=== PATIENT | male | born 1960 | race Caucasian/White ===

== ENCOUNTER 2017-08-06 08:45 | Inpatient (IN) | payer MEDICARE, OTHER ==
[2017-08-06] VITALS (7 sets, daily range): BP systolic 124–149; BP diastolic 65–80
[~2017-08-06] VITALS: Ht 172.7 cm; Wt 72.6 kg
--- NOTE | 2017-08-06 09:23 | Emergency Room Report ---
History of Present Illness General Chief Complaint: Constipation Source: Patient Present Illness HPI Patient presents with 2 problems. His main complaint is that he hasn't moved his bowels for 10 days. He feels dehydrated. His urine has had decreased amounts and has been dark in color. He feels constipated and full. The pain is significant in his abdomen and constant. He feels nauseated but has not been vomiting. His history of HIV and hepatitis C. The hepatitis C was treated and has been cured. The second problem is that he feels short of breath. He stopped smoking on Sunday. He has a history of COPD and asthma. He has an inhaler at home. He denies any chest pain, productive cough. He denies any fevers or chills. No rashes, headache, extremity pain, dysuria, hematuria, depression. Allergies: Coded Allergies: No Known Allergies (Unverified , 08/06/17) Patient History Past Medical History: see triage record Social History: Reports: smoking - Stopped on Sunday; Denies: drug use Social History Narrative lives with girlfriend who is disabled Reviewed Nursing Documentation: PMH: Agreed; PSxH: Agreed Nursing Documentation-PMH Hx Hypertension: Yes Hx Asthma: Yes Review of Systems All Other Systems: negative except mentioned in HPI Physical Exam Vital Signs Date Time Temp Pulse Resp B/P (MAP) Pulse Ox O2 Delivery O2 Flow Rate FiO2 08/06/17 08:53 98.4 108 18 142/79 95 Room Air 98.4 Sp02 EP Interpretation: reviewed, normal General Appearance: well appearing, no apparent distress, GCS 15 Head: normocephalic Eyes: bilateral eye normal inspection, bilateral eye PERRL ENT: dry mucus membranes Neck: supple Respiratory: chest non-tender, lungs clear, normal breath sounds Cardiovascular #1: regular rate, rhythm Cardiovascular #2: 2+ radial (R) Gastrointestinal: normal inspection, normal bowel sounds, soft, no mass, tenderness - diffuse Musculoskeletal: back normal, gait/station normal, normal range of motion Neurologic: alert, oriented x3, grossly normal Psychiatric: mood/affect normal Skin: normal inspection, warm/dry Medical Decision Making Diagnostic Impression: Primary Impression: Hyponatremia Additional Impressions: Abdominal pain Qualified Codes: R10.32 - Left lower quadrant pain Constipation Qualified Codes: K59.00 - Constipation, unspecified HIV (human immunodeficiency virus infection) ER Course Patient presents with constipation and dyspnea. Differential includes dehydration,diabetes, functional constipation, diverticulitis amongst others. In addition he is a smoker and differential for this is acute myocardial infarction, COPD exacerbation, bronchitis, pneumonia. The patient will be evaluated EKG, chest x-ray, abdominal film and labs. The patient retreated with breathing treatments, IV hydration and Toradol. We will avoid narcotics as this might cause further constipation. Also be given a dose of lactulose. Dehydration is one component of presentation. Labs with low sodium, leukocytosis, glucose slightly elevated. UA essentially clear. CXR without infiltrates. EKG no injury. Patient moved large amount of stool in Xray with some relief, however, still with LLQ pain with guarding. CT ordered due to leukocytosis and continued pain. Continued saline infusion. Admit med Dr. Dietrich. Laboratory Tests Test 08/06/17 10:01 08/06/17 12:59 08/06/17 16:00 White Blood Count 13.7 K/UL (4.8-10.8) H Red Blood Count 4.65 M/UL (4.70-6.10) L Hemoglobin 13.8 G/DL (14.2-18.0) L Hematocrit 39.7 % (42.0-52.0) L Mean Corpuscular Volume 85 FL (80-99) Mean Corpuscular Hemoglobin 29.7 PG (27.0-31.0) Mean Corpuscular Hemoglobin Concent 34.9 G/DL (32.0-36.0) Red Cell Distribution Width 10.9 % (11.6-14.8) L Platelet Count 130 K/UL (150-450) L Mean Platelet Volume 8.3 FL (6.5-10.1) Neutrophils (%) (Auto) % (45.0-75.0) Lymphocytes (%) (Auto) % (20.0-45.0) Monocytes (%) (Auto) % (1.0-10.0) Eosinophils (%) (Auto) % (0.0-3.0) Basophils (%) (Auto) % (0.0-2.0) Differential Total Cells Counted 100 Neutrophils % (Manual) 88 % (45-75) H Lymphocytes % (Manual) 6 % (20-45) L Monocytes % (Manual) 6 % (1-10) Eosinophils % (Manual) 0 % (0-3) Basophils % (Manual) 0 % (0-2) Band Neutrophils 0 % (0-8) Platelet Estimate Decreased L Platelet Morphology Normal Red Blood Cell Morphology Normal Prothrombin Time 10.4 SEC (9.30-11.50) Prothrombin Time INR 1.0 (0.9-1.1) PTT 33 SEC (23-33) Sodium Level 120 MMOL/L (136-145) L Potassium Level 3.5 MMOL/L (3.5-5.1) Chloride Level 87 MMOL/L (98-107) L Carbon Dioxide Level 22 MMOL/L (21-32) Anion Gap 11 mmol/L (5-15) Blood Urea Nitrogen 17 mg/dL (7-18) Creatinine 1.0 MG/DL (0.55-1.30) Estimate Glomerular Filtration Rate > 60 mL/min (>60) Glucose Level 195 MG/DL (74-106) H Calcium Level 8.6 MG/DL (8.5-10.1) Total Bilirubin 1.2 MG/DL (0.2-1.0) H Direct Bilirubin 0.3 MG/DL (0.0-0.3) Aspartate Amino Transferase (AST) 23 U/L (15-37) Alanine Aminotransferase (ALT) 25 U/L (12-78) Alkaline Phosphatase 89 U/L (46-116) Total Creatine Kinase 276 U/L (26-308) Troponin I 0.000 ng/mL (0.000-0.056) Pro-B-Type Natriuretic Peptide 36 pg/mL (0-125) Total Protein 7.7 G/DL (6.4-8.2) Albumin 2.7 G/DL (3.4-5.0) L Globulin 5.0 g/dL Albumin/Globulin Ratio 0.5 (1.0-2.7) L Lipase 144 U/L (73-393) Urine Color Pale yellow Urine Appearance Clear Urine pH 6 (4.5-8.0) Urine Specific [place] 1.015 (1.005-1.035) Urine Protein 3+ (NEGATIVE) H Urine Glucose (UA) Negative (NEGATIVE) Urine Ketones Negative (NEGATIVE) Urine Occult Blood 5+ (NEGATIVE) H Urine Nitrite Negative (NEGATIVE) Urine Bilirubin Negative (NEGATIVE) Urine Urobilinogen Normal MG/DL (0.0-1.0) Urine Leukocyte Esterase Negative (NEGATIVE) Urine RBC 2-4 /HPF (0 - 0) H Urine WBC 0 /HPF (0 - 0) Urine Squamous Epithelial Cells Occasional /LPF Urine Amorphous Sediment Few /LPF (NONE) H Urine Bacteria Occasional /HPF (NONE) Urine Osmolality 852 mOsm/kg (429-449) H Urine Random Sodium < 20 mmol/L (20-110) L Urine Opiates Screen Negative (NEGATIVE) Urine Barbiturates Screen Negative (NEGATIVE) Phencyclidine (PCP) Screen Negative (NEGATIVE) Urine Amphetamines Screen Positive (NEGATIVE) H Urine Benzodiazepines Screen Negative (NEGATIVE) Urine Cocaine Screen Positive (NEGATIVE) H Urine Marijuana (THC) Screen Positive (NEGATIVE) H EKG Diagnostic Results Rate: normal Rhythm: NSR ST Segments: no acute changes - LE Rhythm Strip Diag. Results EP Interpretation: yes Rhythm: NSR, no PVC's, no ectopy Chest X-Ray Diagnostic Results Chest X-Ray Diagnostic Results : Chest X-Ray Ordered: Yes # of Views/Limited/Complete: 1 View Interpretation: no consolidation, no effusion, no pneumothorax, other - COPD Impression: Other Electronically Signed by: Murali Ogden MD Other X-Ray Diagnostic Results Other X-Ray Diagnostic Results : X-Ray ordered: abd # of Views/Limited Vs Complete: 1 View Indication: Pain Interpretation: nonspecific bowel gas, no sbo, other - inc stool Impression: Other Electronically Signed by: Murali Ogden MD CT/MRI/US Diagnostic Results CT/MRI/US Diagnostic Results : Imaging Test Ordered: CT abdomen Impression no diverticulitis but diverticulosis Impression: Small left pleural effusion and left basilar atelectasis and possibly some consolidation No definite acute abdominal or pelvic process No CT evidence of significant constipation Colonic diverticulosis. No evidence of diverticulitis Mildly hypoattenuating liver, consistent with fatty change Prominent prostate, with nonspecific hypoattenuation Subcentimeter low-attenuation left renal lesion, too small to characterize, most likely benign simple cysts. No further follow-up necessary Last Vital Signs Date Time Temp Pulse Resp B/P (MAP) Pulse Ox O2 Delivery O2 Flow Rate FiO2 08/06/17 08:57 98.4 78 18 142/79 95 Room Air 98.4 Status: improved Disposition: ADMITTED INPATIENT Condition: Serious Scripts No Active Prescriptions or Reported Meds Murali Ogden M.D. Aug 06, 2017 09:23
[2017-08-06] MEDS ORDERED: Ketorolac 30mg Inj IV ONE (09:30)
[2017-08-06] MEDS ORDERED: Albuterol ud Inhalation HHN ONE (09:30)
[2017-08-06] MEDS ORDERED: Lactulose 20gm/30ml UDC ORAL ONE (09:30)
[2017-08-06] MEDS ORDERED: Ipratropium 0.02% Inh Soln 2.5ml UD HHN ONE (09:30)
[2017-08-06 10:09] LABS: HEMATOCRIT 39.7 % (42.0-52.0); HEMOGLOBIN 13.8 G/DL (14.2-18.0); MEAN CORPUSCULAR VOLUME 85 FL (80-99); PLATELET COUNT 130 K/UL (150-450); RED BLOOD COUNT 4.65 M/UL (4.70-6.10); RED CELL DISTRIBUTION WIDTH 10.9 % (11.6-14.8); WHITE BLOOD COUNT 13.7 K/UL (4.8-10.8)
[2017-08-06 10:31] LABS: ALANINE AMINOTRANSFERASE 25 U/L (12-78); ALBUMIN 2.7 G/DL (3.4-5.0); ALBUMIN/GLOBULIN RATIO 0.5 (1.0-2.7); ALKALINE PHOSPHATASE 89 U/L (46-116); ANION GAP 11 mmol/L (5-15); ASPARTATE AMINO TRANSFERASE 23 U/L (15-37); BILIRUBIN,TOTAL 1.2 MG/DL (0.2-1.0); BLOOD UREA NITROGEN 17 mg/dL (7-18); CALCIUM 8.6 MG/DL (8.5-10.1); CARBON DIOXIDE 22 MMOL/L (21-32); CHLORIDE 87 MMOL/L (98-107); CREATINE KINASE 276 U/L (26-308); POTASSIUM 3.5 MMOL/L (3.5-5.1); SODIUM 120 MMOL/L (136-145)
[2017-08-06 10:32] LABS: BILIRUBIN,DIRECT 0.3 MG/DL (0.0-0.3)
[2017-08-06] MEDS ORDERED: Isovue-300 100ml vial INJ PRN (10:45)
[2017-08-06] MEDS ORDERED: Gastrograffin 30ml ORAL PRN (10:45)
--- NOTE | 2017-08-06 11:08 | Diagnostic Imaging Report ---
Indication: Chest pain Technique: One view of the chest Comparison: none Findings: Lungs and pleural spaces are clear. Heart size is normal Impression: No acute process
--- NOTE | 2017-08-06 11:09 | Diagnostic Imaging Report ---
Indication: Abdominal pain Technique: Supine view of the abdomen Comparison: none Findings: Considerable gas is seen in the upper limits of normal caliber but not frankly dilated small bowel loops, as well as in normal caliber colon. No contreras gaseous distention of large or small bowel. No unusual masses or calcifications. There are degenerative changes of the lumbar spine Impression: No acute process
[2017-08-06 13:34] LABS: APPEARANCE,URINE CLEAR; BILIRUBIN, URINE NEGATIVE (NEGATIVE); COLOR,URINE PALE YELLOW; GLUCOSE, URINE (UA) NEGATIVE (NEGATIVE); KETONES,URINE NEGATIVE (NEGATIVE); LEUKOCYTE ESTERASE ,URINE NEGATIVE (NEGATIVE); NITRITE,URINE NEGATIVE (NEGATIVE); PH,URINE 6 (4.5-8.0); PROTEIN,URINE 3+ (NEGATIVE); UROBILINOGEN,URINE NORMAL MG/DL (0.0-1.0)
[2017-08-06] MEDS ORDERED: Cefepime HCl 1 GM in D5W 55 ML IVPB ONE (14:00)
[2017-08-06] MEDS ORDERED: D5 1/2NS 1,000 ML IV SCH (14:13)
[2017-08-06] MEDS ORDERED: Mylanta II UD 30ml ORAL PRN (14:15)
[2017-08-06] MEDS ORDERED: fentaNYL 100 mcg/2 mL IV ONE (14:15)
[2017-08-06] MEDS ORDERED: Metoclopramide 10mg/2ml Inj IVP PRN (14:15)
[2017-08-06] MEDS ORDERED: Miralax 17gm pkt ORAL PRN (14:15)
[2017-08-06] MEDS ORDERED: Nitroglycerin Subl 0.4mg tab SL PRN (14:15)
[2017-08-06] MEDS ORDERED: Promethazine HCl 12.5 MG in NS 55 ML IV PRN (14:15)
[2017-08-06] MEDS ORDERED: Promethazine HCl 25 MG in NS 55 ML IV PRN (14:15)
--- NOTE | 2017-08-06 15:49 | Diagnostic Imaging Report ---
Clinical Indication: Abdominal pain since Sunday morning, radiating to the back, no bowel movements for 10 days Technique: No oral contrast utilized, per emergency room physician request IV administration nonionic contrast. Venous phase spiral acquisition obtained through the abdomen and pelvis. Multiplanar reconstructions were generated. Total dose length product 731.54 mGycm. CTDIvol(s) 13.88 mGy. Dose reduction achieved using automated exposure control Comparison: none Findings: There is colonic diverticulosis. No evidence of diverticulitis. Descending colon and transverse colon are prominent, gas-filled, but not frankly dilated. Only minimal retained stool is demonstrated. The appendix is not definitely visualized, but no findings to suggest acute appendicitis are evident. No small bowel distention. Contrast is seen throughout the entirety of the small bowel and well into the colon. The distal esophagus, stomach, duodenum are unremarkable. The liver is diffusely mildly hypoattenuating, consistent with fatty change. No focal abnormality. The gallbladder is nondistended. No gallstones are evident. There is a small duodenal diverticulum. No biliary ductal dilatation. The pancreas, spleen, right adrenal are unremarkable. 5 mm fat attenuation nodule is seen within the left adrenal. The left kidney demonstrates a subcentimeter low-attenuation lesion which is too small to characterize. The right kidney is unremarkable. No renal or ureteral calculi, hydronephrosis, or hydroureter. No pelvic mass or adenopathy. Mildly prominent hypoattenuating prostate. Atelectatic changes possible consolidation,, and a small amount of pleural fluid are seen at the left lung base. Minimal dependent atelectasis is seen at the right lung base as well. The bones demonstrate degenerative spondylosis changes. Impression: Small left pleural effusion and left basilar atelectasis and possibly some consolidation No definite acute abdominal or pelvic process No CT evidence of significant constipation Colonic diverticulosis. No evidence of diverticulitis Mildly hypoattenuating liver, consistent with fatty change 5 mm fat attenuation nodule within the left adrenal, consistent with small myelolipoma ... Delete that Prominent prostate, with nonspecific hypoattenuation Subcentimeter low-attenuation left renal lesion, too small to characterize, most likely benign simple cysts. No further follow-up necessary Other findings as noted, including degenerative spondylosis, duodenal diverticulum The CT scanner at [facility] is accredited by the [employer] [place] and the scans are performed using protocols designed to limit radiation exposure to as low as reasonably achievable to attain images of sufficient resolution adequate for diagnostic evaluation.
--- NOTE | 2017-08-06 16:03 | GI Initial Consult Note ---
History of Present Illness General Date patient seen: Aug 06, 2017 Time patient seen: 15:56 Reason for Hospitalization: Constipation Referring physician: ANAT BARNES Reason for Consultation: ABDOMINAL PAIN Present Illness HPI Patient presents with 2 problems. His main complaint is that he hasn't moved his bowels for 10 days. He feels dehydrated. His urine has had decreased amounts and has been dark in color. He feels constipated and full. The pain is significant in his abdomen and constant. He feels nauseated but has not been vomiting. His history of HIV and hepatitis C but the hepatitis C was treated and has been cured. The second problem is that he feels short of breath. She stopped smoking on Sunday. He has a history of COPD and asthma. He has an inhaler at home. He denies any chest pain, productive cough. He denies any fevers or chills. GI consulted for abdominal pain/constipation x 10 days. Pt seen, awake A&Ox4 NAD with no active s/sx of N/V/D. Stated he had two big BM's this morning, but still has abdominal pain. The patient stated he recently quit drinking this year, has history of crystal meth use and recently quit. Had his hepatitis cured 20 years ago. Abdomen is soft and distended, possible ascites. No history of endoscopy / colonoscopy. Home Meds No Active Prescriptions or Reported Meds Med list reviewed/reconciled: Yes Allergies: Coded Allergies: No Known Allergies (Unverified , 08/06/17) Patient History History Provided By: Patient, Medical Record PMH Narrative Past Medical History: see triage record Social History: Reports: smoking - Stopped on Sunday Social History Narrative lives with girlfriend who is disabled Reviewed Nursing Documentation: PMH: Agreed; PSxH: Agreed Nursing Documentation-PMH Hx Hypertension: Yes Hx Asthma: Yes Past Surgical History: none Social History: Reports: smoking, alcohol use, drug use Review of Systems All Other Systems: negative except mentioned in HPI Physical Exam Vital Signs Date Time Temp Pulse Resp B/P (MAP) Pulse Ox O2 Delivery O2 Flow Rate FiO2 08/06/17 08:53 98.4 108 18 142/79 95 Room Air 98.4 08/06/17 09:32 2.0 28 Sp02 EP Interpretation: reviewed, normal Labs Laboratory Tests Test 08/06/17 10:01 6/25/18 12:59 White Blood Count 13.7 K/UL (4.8-10.8) H Red Blood Count 4.65 M/UL (4.70-6.10) L Hemoglobin 13.8 G/DL (14.2-18.0) L Hematocrit 39.7 % (42.0-52.0) L Mean Corpuscular Volume 85 FL (80-99) Mean Corpuscular Hemoglobin 29.7 PG (27.0-31.0) Mean Corpuscular Hemoglobin Concent 34.9 G/DL (32.0-36.0) Red Cell Distribution Width 10.9 % (11.6-14.8) L Platelet Count 130 K/UL (150-450) L Mean Platelet Volume 8.3 FL (6.5-10.1) Neutrophils (%) (Auto) % (45.0-75.0) Lymphocytes (%) (Auto) % (20.0-45.0) Monocytes (%) (Auto) % (1.0-10.0) Eosinophils (%) (Auto) % (0.0-3.0) Basophils (%) (Auto) % (0.0-2.0) Differential Total Cells Counted 100 Neutrophils % (Manual) 88 % (45-75) H Lymphocytes % (Manual) 6 % (20-45) L Monocytes % (Manual) 6 % (1-10) Eosinophils % (Manual) 0 % (0-3) Basophils % (Manual) 0 % (0-2) Band Neutrophils 0 % (0-8) Platelet Estimate Decreased L Platelet Morphology Normal Red Blood Cell Morphology Normal Prothrombin Time 10.4 SEC (9.30-11.50) Prothromb Time International Ratio 1.0 (0.9-1.1) Activated Partial Thromboplast Time 33 SEC (23-33) Sodium Level 120 MMOL/L (136-145) L Potassium Level 3.5 MMOL/L (3.5-5.1) Chloride Level 87 MMOL/L (98-107) L Carbon Dioxide Level 22 MMOL/L (21-32) Anion Gap 11 mmol/L (5-15) Blood Urea Nitrogen 17 mg/dL (7-18) Creatinine 1.0 MG/DL (0.55-1.30) Estimat Glomerular Filtration Rate > 60 mL/min (>60) Glucose Level 195 MG/DL (74-106) H Calcium Level 8.6 MG/DL (8.5-10.1) Total Bilirubin 1.2 MG/DL (0.2-1.0) H Direct Bilirubin 0.3 MG/DL (0.0-0.3) Aspartate Amino Transf (AST/SGOT) 23 U/L (15-37) Alanine Aminotransferase (ALT/SGPT) 25 U/L (12-78) Alkaline Phosphatase 89 U/L (46-116) Total Creatine Kinase 276 U/L (26-308) Troponin I 0.000 ng/mL (0.000-0.056) Pro-B-Type Natriuretic Peptide 36 pg/mL (0-125) Total Protein 7.7 G/DL (6.4-8.2) Albumin 2.7 G/DL (3.4-5.0) L Globulin 5.0 g/dL Albumin/Globulin Ratio 0.5 (1.0-2.7) L Lipase 144 U/L (73-393) Urine Color Pale yellow Urine Appearance Clear Urine pH 6 (4.5-8.0) Urine Specific [place] 1.015 (1.005-1.035) Urine Protein 3+ (NEGATIVE) H Urine Glucose (UA) Negative (NEGATIVE) Urine Ketones Negative (NEGATIVE) Urine Occult Blood 5+ (NEGATIVE) H Urine Nitrite Negative (NEGATIVE) Urine Bilirubin Negative (NEGATIVE) Urine Urobilinogen Normal MG/DL (0.0-1.0) Urine Leukocyte Esterase Negative (NEGATIVE) Urine RBC 2-4 /HPF (0 - 0) H Urine WBC 0 /HPF (0 - 0) Urine Squamous Epithelial Cells Occasional /LPF Urine Amorphous Sediment Few /LPF (NONE) H Urine Bacteria Occasional /HPF (NONE) General Appearance: well appearing, no apparent distress, alert Head: normocephalic EENT: PERRL/EOMI, normal ENT inspection Neck: supple Respiratory: normal breath sounds, no respiratory distress Cardiovascular: normal rate Gastrointestinal: normal inspection, non tender, soft, normal bowel sounds, distended, ascites - possible Rectal: deferred Genitourinary: deferred Musculoskeletal: normal inspection, back normal Neurologic: normal inspection, alert, oriented x3, responsive Psychiatric: normal inspection, judgement/insight normal, memory normal Skin: normal inspection, normal color, no rash, warm/dry, palpation normal, well hydrated Lymphatic: normal inspection, no adenopathy Current Medications Current Medications Medications (Trade) Dose Ordered Sig/Veronica Route PRN Reason Start Time Stop Time Status Last Admin Dose Admin Acetaminophen (Tylenol) 650 mg Q4H PRN ORAL fever 08/06/17 14:15 09/05/17 14:14 Al Hydroxide/Mg Hydroxide (Mylanta II) 30 ml Q6H PRN ORAL dyspepsia 08/06/17 14:15 09/05/17 14:14 Dextrose (Dextrose 50%) 25 ml STAT PRN IV Hypoglycemia 08/06/17 14:15 09/05/17 14:14 Dextrose (Dextrose 50%) 50 ml STAT PRN IV Hypoglycemia 08/06/17 15:15 09/05/17 15:14 Dextrose/Sodium Chloride 1,000 ml @ 75 mls/hr [id number] IV 08/06/17 14:13 09/05/17 14:12 Diatrizoate Meglum/ Diatrizoate Sod (Gastrografin) 30 ml NOW PRN ORAL Radiology Procedure 08/06/17 10:45 08/08/17 10:44 Diphenhydramine HCl (Benadryl) 25 mg Q6H PRN ORAL Itching/Pruritis 08/06/17 14:15 09/05/17 14:14 Heparin Sodium (Porcine) (Heparin 5000 units/ml) 5,000 units EVERY 12 HOURS SUBQ 08/06/17 21:00 09/05/17 20:59 UNV Iopamidol (Isovue-300 100ml) 100 ml NOW PRN INJ Radiology Procedure 08/06/17 10:45 08/08/17 10:44 Lorazepam (Ativan 2mg/ml 1ml) 1 mg EVERY 4 HOURS PRN IV agitation 08/06/17 14:15 08/13/17 14:14 UNV Metoclopramide HCl (Reglan) 10 mg EVERY 6 HOURS PRN IVP servere nauasea 08/06/17 14:15 09/05/17 14:14 UNV Morphine Sulfate (Morphine Sulfate) 2 mg EVERY 4 HOURS PRN IVP severe Pain (Pain Scale 7-10) 08/06/17 14:15 08/13/17 14:14 UNV Nitroglycerin (Ntg) 0.4 mg Q5M X 3 DOSES PRN SL Prn Chest Pain 08/06/17 14:15 09/05/17 14:14 UNV Ondansetron HCl (Zofran) 4 mg Q6H PRN IVP Nausea & Vomiting 08/06/17 14:15 09/05/17 14:14 UNV Pantoprazole (Protonix) 40 mg DAILY IV 08/07/17 09:00 09/06/17 08:59 UNV Polyethylene Glycol (Miralax) 17 gm HSPRN PRN ORAL Constipation 08/06/17 14:15 09/05/17 14:14 UNV Promethazine HCl 12.5 mg/Sodium Chloride 55.5 ml @ 110 mls/hr Q6H PRN IV Refractory N/V 08/06/17 14:15 09/05/17 14:14 UNV Promethazine HCl 25 mg/Sodium Chloride 56 ml @ 110 mls/hr Q6H PRN IV Refractory N/V 08/06/17 14:15 09/05/17 14:14 UNV Sodium Chloride 1,000 ml @ 300 mls/hr Q3H20M IV 08/06/17 09:30 09/05/17 09:29 08/06/17 15:22 Temazepam (Restoril) 15 mg HSPRN PRN ORAL Insomnia 08/06/17 14:15 08/13/17 14:14 UNV GI: Plan Problems: (1) Hepatitis C (2) HIV (human immunodeficiency virus infection) (3) Constipated (4) Abdominal pain (5) Hyponatremia Plan CT reviewed >> - Small left pleural effusion and left basilar atelectasis and possibly some consolidation - No definite acute abdominal or pelvic process - No CT evidence of significant constipation - Colonic diverticulosis. No evidence of diverticulitis - Mildly hypoattenuating liver, consistent with fatty change - prominent prostate, with nonspecific hypoattenuation pending abdominal U/S, okay for regular diet after imaging study ordered Utox anemia work up OB stool r/o GI bleed monitor H&H, prn transfusions bowel regime ppi fu labs, HIV, Hepatitis panel outpatient GI procedures Discussed with Dr. Lee. Thank you for this patient referral, we will follow. The patient was seen and examined at bedside and all new and available data was reviewed in the patients chart. I agree with the above findings, impression and plan. (Patient seen earlier today. Signature stamp does not reflect patient encounter time.). - MD Patti PerkinsHonorhealth [facility] MCKEON Aug 06, 2017 16:03
[2017-08-06] MEDS: Docusate 100mg cap ORAL SCH (17:26)
[2017-08-06] MEDS: Morphine Sulfate 2mg/ml Inj IVP PRN ×2 (17:26→21:43)
[2017-08-06] MEDS: Heparin 5000 units/ml inj SUBQ SCH (20:30)
[2017-08-06] MEDS: Miralax 17gm pkt ORAL SCH (21:43)
[2017-08-07] MEDS: Morphine Sulfate 2mg/ml Inj IVP PRN ×6 (02:00→23:35)
[2017-08-07 04:00] VITALS: BP 120/74
[2017-08-07 07:13] LABS: HEMOGLOBIN 13.9 G/DL (14.2-18.0); MEAN CORPUSCULAR VOLUME 85 FL (80-99); PLATELET COUNT 130 K/UL (150-450); RED BLOOD COUNT 4.57 M/UL (4.70-6.10); WHITE BLOOD COUNT 11.3 K/UL (4.8-10.8)
[2017-08-07 07:26] LABS: ALANINE AMINOTRANSFERASE 29 U/L (12-78); ALBUMIN 2.5 G/DL (3.4-5.0); ALBUMIN/GLOBULIN RATIO 0.6 (1.0-2.7); ALKALINE PHOSPHATASE 84 U/L (46-116); AMYLASE 26 U/L (25-115); ASPARTATE AMINO TRANSFERASE 28 U/L (15-37); BILIRUBIN,TOTAL 0.9 MG/DL (0.2-1.0); BLOOD UREA NITROGEN 12 mg/dL (7-18); CALCIUM 7.8 MG/DL (8.5-10.1); CARBON DIOXIDE 25 MMOL/L (21-32); FERRITIN 1584 NG/ML (8-388)
[2017-08-07 08:00] VITALS: BP 141/57
[2017-08-07 08:01] LABS: % IRON SATURATION 13 % (15-50); IRON 24 ug/dL (50-175); TOTAL IRON BINDING CAPACITY 190 ug/dL (250-450)
[2017-08-07 08:02] LABS: PHOSPHORUS 1.8 MG/DL (2.5-4.9)
[2017-08-07 08:08] LABS: CHLORIDE 90 MMOL/L (98-107); POTASSIUM 4.1 MMOL/L (3.5-5.1); SODIUM 124 MMOL/L (136-145)
[2017-08-07] MEDS: Heparin 5000 units/ml inj SUBQ SCH ×2 (08:30→20:34)
[2017-08-07] MEDS: Docusate 100mg cap ORAL SCH ×2 (08:31→17:56)
[2017-08-07] MEDS ORDERED: Pantoprazole Inj IV SCH (09:00)
--- NOTE | 2017-08-07 13:37 | Consultation ---
History of Present Illness General Date patient seen: Aug 06, 2017 Chief Complaint: Constipation Referring physician: ANAT BARNES Reason for Consultation: COPD Present Illness HPI 56 year old male with hx of HIV presented with complaint of constipation for 10 days. He feels dehydrated. His urine has had decreased amounts and has been dark in color. He feels nauseated but has not been vomiting. His history of HIV and hepatitis C but the hepatitis C was treated and has been cured. The second problem is that he feels short of breath. She stopped smoking on Sunday. He has a history of COPD and asthma. He has an inhaler at home. He denies any chest pain, productive cough. He denies any fevers or chills. Allergies: Coded Allergies: No Known Allergies (Unverified , 08/06/17) Medication History No Active Prescriptions or Reported Meds Patient History Healthcare decision maker Resuscitation status Full Code Advanced Directive on File Past Medical/Surgical History Past Medical/Surgical History: (1) COPD (chronic obstructive pulmonary disease) Review of Systems All Other Systems: negative except mentioned in HPI Physical Exam General Appearance: WD/WN Lines, tubes and drains: peripheral HEENT: normocephalic, atraumatic Neck: non-tender, normal alignment Respiratory/Chest: chest wall non-tender, decreased breath sounds Breasts: no masses Cardiovascular/Chest: normal peripheral pulses Abdomen: normal bowel sounds, non tender Genitourinary/Rectal: normal genital exam, normal rectal exam Extremities: normal range of motion Skin Exam: normal pigmentation Last 24 Hour Vital Signs Date Time Temp Pulse Resp B/P (MAP) Pulse Ox O2 Delivery O2 Flow Rate FiO2 08/07/17 11:44 98.6 08/07/17 11:14 98.6 08/07/17 08:00 98.6 96 20 141/57 98 Room Air 98.6 08/07/17 04:00 97.9 91 20 120/74 97 Room Air 97.9 08/06/17 23:58 98.1 87 20 135/65 99 Room Air 98.1 08/06/17 22:41 97.3 08/06/17 21:42 101.7 08/06/17 19:27 101.7 96 20 134/68 95 Room Air 101.7 08/06/17 16:16 98.2 109 22 125/79 99 Room Air 98.2 08/06/17 15:57 98.4 112 20 124/80 98 Nasal Cannula 2.0 28 98.4 08/06/17 15:27 98.4 112 20 124/80 98 Nasal Cannula 2.0 28 98.4 08/06/17 14:45 98.4 08/06/17 14:15 98.4 08/06/17 13:37 98.4 88 20 132/79 98 Nasal Cannula 2.0 28 98.4 Intake and Output 08/06/17 08/07/17 19:00 07:00 Intake Total 500 ml 1005 ml Output Total 0 ml Balance 500 ml 1005 ml Intake Oral 350 ml 480 ml IV Total 150 ml 525 ml Output Urine Total 0 ml # Voids 5 # Bowel Movements 2 3 Laboratory Tests Test 08/06/17 16:00 08/07/17 00:00 08/07/17 05:10 08/07/17 05:20 Urine Osmolality 852 mOsm/kg (429-449) H Urine Random Sodium < 20 mmol/L (20-110) L Urine Opiates Screen Negative (NEGATIVE) Urine Barbiturates Screen Negative (NEGATIVE) Phencyclidine (PCP) Screen Negative (NEGATIVE) Urine Amphetamines Screen Positive (NEGATIVE) H Urine Benzodiazepines Screen Negative (NEGATIVE) Urine Cocaine Screen Positive (NEGATIVE) H Urine Marijuana (THC) Screen Positive (NEGATIVE) H HIV-1 Antibody Pending HIV-2 Antibody Pending Stool Occult Blood Negative (NEGATIVE) White Blood Count 11.3 K/UL (4.8-10.8) H Red Blood Count 4.57 M/UL (4.70-6.10) L Hemoglobin 13.9 G/DL (14.2-18.0) L Hematocrit 39.0 % (42.0-52.0) L Mean Corpuscular Volume 85 FL (80-99) Mean Corpuscular Hemoglobin 30.4 PG (27.0-31.0) Mean Corpuscular Hemoglobin Concent 35.5 G/DL (32.0-36.0) Red Cell Distribution Width 11.0 % (11.6-14.8) L Platelet Count 130 K/UL (150-450) L Mean Platelet Volume 8.1 FL (6.5-10.1) Neutrophils (%) (Auto) % (45.0-75.0) Lymphocytes (%) (Auto) % (20.0-45.0) Monocytes (%) (Auto) % (1.0-10.0) Eosinophils (%) (Auto) % (0.0-3.0) Basophils (%) (Auto) % (0.0-2.0) Differential Total Cells Counted 100 Neutrophils % (Manual) 84 % (45-75) H Lymphocytes % (Manual) 5 % (20-45) L Monocytes % (Manual) 9 % (1-10) Eosinophils % (Manual) 1 % (0-3) Basophils % (Manual) 0 % (0-2) Band Neutrophils 1 % (0-8) Platelet Estimate Decreased L Platelet Morphology Normal Red Blood Cell Morphology Normal Reticulocyte Count 0.9 % (0.0-2.0) Prothrombin Time 10.5 SEC (9.30-11.50) Prothromb Time International Ratio 1.0 (0.9-1.1) Activated Partial Thromboplast Time 28 SEC (23-33) Sodium Level 124 MMOL/L (136-145) L Potassium Level 4.1 MMOL/L (3.5-5.1) Chloride Level 90 MMOL/L (98-107) L Carbon Dioxide Level 25 MMOL/L (21-32) Blood Urea Nitrogen 12 mg/dL (7-18) Creatinine 1.0 MG/DL (0.55-1.30) Estimat Glomerular Filtration Rate > 60 mL/min (>60) Glucose Level 167 MG/DL (74-106) H Osmolality 268 mOsm/kg (297-317) L Uric Acid 3.9 MG/DL (2.6-7.2) Calcium Level 7.8 MG/DL (8.5-10.1) L Phosphorus Level 1.8 MG/DL (2.5-4.9) L Iron Level 24 ug/dL (50-175) L Total Iron Binding Capacity 190 ug/dL (250-450) L Percent Iron Saturation 13 % (15-50) L Unsaturated Iron Binding 166 ug/dL (112-346) Ferritin 1584 NG/ML (8-388) H Total Bilirubin 0.9 MG/DL (0.2-1.0) Aspartate Amino Transf (AST/SGOT) 28 U/L (15-37) Alanine Aminotransferase (ALT/SGPT) 29 U/L (12-78) Alkaline Phosphatase 84 U/L (46-116) Total Protein 6.5 G/DL (6.4-8.2) Albumin 2.5 G/DL (3.4-5.0) L Globulin 4.0 g/dL Albumin/Globulin Ratio 0.6 (1.0-2.7) L Amylase Level 26 U/L (25-115) Lipase 384 U/L (73-393) Carcinoembryonic Antigen Pending Vitamin B12 Level 488 PG/ML (193-986) Folate 9.0 NG/ML (8.6-58.9) Thyroid Stimulating Hormone (TSH) 1.356 uiU/mL (0.358-3.740) Free Thyroxine 1.05 NG/DL (0.76-1.46) Hepatitis A IgM Antibody Pending Hepatitis B Surface Antigen Pending Hepatitis B Core IgM Antibody Pending Hepatitis C Antibody Pending HIV (1&2) Antibody Rapid Preliminary positive Height (Feet): 5 Height (Inches): 8.00 Weight (Pounds): 160 Medications Current Medications Medications (Trade) Dose Ordered Sig/Veronica Route PRN Reason Start Time Stop Time Status Last Admin Dose Admin Acetaminophen (Tylenol) 650 mg Q4H PRN ORAL fever 08/06/17 14:15 09/05/17 14:14 08/06/17 21:42 Al Hydroxide/Mg Hydroxide (Mylanta II) 30 ml Q6H PRN ORAL dyspepsia 08/06/17 14:15 09/05/17 14:14 Dextrose (Dextrose 50%) 25 ml STAT PRN IV Hypoglycemia 08/06/17 14:15 09/05/17 14:14 Dextrose (Dextrose 50%) 50 ml STAT PRN IV Hypoglycemia 08/06/17 15:15 09/05/17 15:14 Diatrizoate Meglum/ Diatrizoate Sod (Gastrografin) 30 ml NOW PRN ORAL Radiology Procedure 08/06/17 10:45 08/08/17 10:44 Diphenhydramine HCl (Benadryl) 25 mg Q6H PRN ORAL Itching/Pruritis 08/06/17 14:15 09/05/17 14:14 Docusate Sodium (Colace) 100 mg TWICE A DAY ORAL 08/06/17 18:00 09/05/17 17:59 08/07/17 08:31 Heparin Sodium (Porcine) (Heparin 5000 units/ml) 5,000 units EVERY 12 HOURS SUBQ 08/06/17 21:00 09/05/17 20:59 Iopamidol (Isovue-300 100ml) 100 ml NOW PRN INJ Radiology Procedure 08/06/17 10:45 08/08/17 10:44 Lorazepam (Ativan 2mg/ml 1ml) 1 mg Q4H PRN IV agitation 08/06/17 14:15 08/13/17 14:14 Metoclopramide HCl (Reglan) 10 mg Q6H PRN IVP REFRACTORY N/V 08/06/17 14:15 09/05/17 14:14 Morphine Sulfate (Morphine Sulfate) 2 mg Q4H PRN IVP Severe Pain (Pain Scale 7-10) 08/06/17 14:15 08/13/17 14:14 08/07/17 11:14 Nitroglycerin (Ntg) 0.4 mg Q5M X 3 DOSES PRN SL Prn Chest Pain 08/06/17 14:15 09/05/17 14:14 Ondansetron HCl (Zofran) 4 mg Q6H PRN IVP Nausea & Vomiting 08/06/17 14:15 09/05/17 14:14 Pantoprazole (Protonix) 40 mg DAILY IV 08/07/17 09:00 09/06/17 08:59 08/07/17 08:31 Polyethylene Glycol (Miralax) 17 gm BEDTIME ORAL 08/06/17 21:00 09/05/17 20:59 08/06/17 21:43 Sodium Chloride 1,000 ml @ 75 mls/hr [id number] IV 08/06/17 16:30 09/05/17 16:29 08/07/17 06:00 Temazepam (Restoril) 15 mg HSPRN PRN ORAL Insomnia 08/06/17 21:00 08/13/17 20:59 08/06/17 21:42 Assessment/Plan Problem List: (1) Abdominal pain ICD Codes: R10.9 - Unspecified abdominal pain SNOMED: 50803209 Qualifiers: Qualified Codes: R10.32 - Left lower quadrant pain (2) Constipation ICD Codes: K59.00 - Constipation, unspecified SNOMED: 72389257 Qualifiers: Qualified Codes: K59.00 - Constipation, unspecified (3) Hyponatremia ICD Codes: E87.1 - Hypo-osmolality and hyponatremia SNOMED: 57961079 (4) COPD (chronic obstructive pulmonary disease) ICD Codes: J44.9 - Chronic obstructive pulmonary disease, unspecified SNOMED: 70687210 (5) Hepatitis C ICD Codes: B19.20 - Unspecified viral hepatitis C without hepatic coma SNOMED: 26552180 (6) HIV (human immunodeficiency virus infection) ICD Codes: B20 - Human immunodeficiency virus [HIV] disease SNOMED: 36183096 Assessment/Plan laxative respiratory treatment Hyponatremia w/u HIV studies titrate fio2 to sat of 92% ID evaluation pt/ot, pt has a walker. Sally Cox MD Aug 07, 2017 13:37
--- NOTE | 2017-08-07 13:38 | Pulmonology Progress Note ---
Assessment/Plan Problems: (1) Abdominal pain (2) Constipation (3) Hyponatremia (4) COPD (chronic obstructive pulmonary disease) (5) Hepatitis C (6) HIV (human immunodeficiency virus infection) Assessment/Plan laxative, GI evaluation appreciated respiratory treatment Hyponatremia w/u HIV studies titrate fio2 to sat of 92% ID evaluation ending pt/ot, pt has a walker. Subjective ROS Limited/Unobtainable: No Interval Events: still c/o pain Allergies: Coded Allergies: No Known Allergies (Unverified , 08/06/17) Objective Last 24 Hour Vital Signs Date Time Temp Pulse Resp B/P (MAP) Pulse Ox O2 Delivery O2 Flow Rate FiO2 08/07/17 11:44 98.6 08/07/17 11:14 98.6 08/07/17 08:00 98.6 96 20 141/57 98 Room Air 98.6 08/07/17 04:00 97.9 91 20 120/74 97 Room Air 97.9 08/06/17 23:58 98.1 87 20 135/65 99 Room Air 98.1 08/06/17 22:41 97.3 08/06/17 21:42 101.7 08/06/17 19:27 101.7 96 20 134/68 95 Room Air 101.7 08/06/17 16:16 98.2 109 22 125/79 99 Room Air 98.2 08/06/17 15:57 98.4 112 20 124/80 98 Nasal Cannula 2.0 28 98.4 08/06/17 15:27 98.4 112 20 124/80 98 Nasal Cannula 2.0 28 98.4 08/06/17 14:45 98.4 08/06/17 14:15 98.4 Intake and Output 08/06/17 08/07/17 19:00 07:00 Intake Total 500 ml 1005 ml Output Total 0 ml Balance 500 ml 1005 ml Intake Oral 350 ml 480 ml IV Total 150 ml 525 ml Output Urine Total 0 ml # Voids 5 # Bowel Movements 2 3 General Appearance: WD/WN HEENT: atraumatic Respiratory/Chest: chest wall non-tender, lungs clear Cardiovascular: normal peripheral pulses, normal rate Abdomen: normal bowel sounds, soft, non tender Genitourinary: normal external genitalia Skin: no rash Laboratory Tests 08/06/17 16:00: Urine Osmolality 852H, Urine Random Sodium < 20L, Urine Opiates Screen Negative , Urine Barbiturates Screen Negative, Phencyclidine (PCP) Screen Negative, Urine Amphetamines Screen PositiveH, Urine Benzodiazepines Screen Negative, Urine Cocaine Screen PositiveH, Urine Marijuana (THC) Screen PositiveH 08/07/17 00:00: HIV-1 Antibody [Pending], HIV-2 Antibody [Pending] 08/07/17 05:10: Stool Occult Blood Negative 08/07/17 05:20: White Blood Count 11.3H, Red Blood Count 4.57L, Hemoglobin 13.9L, Hematocrit 39.0L, Mean Corpuscular Volume 85, Mean Corpuscular Hemoglobin 30.4, Mean Corpuscular Hemoglobin Concent 35.5, Red Cell Distribution Width 11.0L, Platelet Count 130L, Mean Platelet Volume 8.1, Neutrophils (%) (Auto) , Lymphocytes (%) (Auto) , Monocytes (%) (Auto) , Eosinophils (%) (Auto) , Basophils (%) (Auto) , Differential Total Cells Counted 100, Neutrophils % ( Manual) 84H, Lymphocytes % (Manual) 5L, Monocytes % (Manual) 9, Eosinophils % ( Manual) 1, Basophils % (Manual) 0, Band Neutrophils 1, Platelet Estimate DecreasedL, Platelet Morphology Normal, Red Blood Cell Morphology Normal, Reticulocyte Count 0.9, Prothrombin Time 10.5, Prothromb Time International Ratio 1.0, Activated Partial Thromboplast Time 28, Sodium Level 124L, Potassium Level 4.1, Chloride Level 90L, Carbon Dioxide Level 25, Blood Urea Nitrogen 12, Creatinine 1.0, Estimat Glomerular Filtration Rate > 60, Glucose Level 167H, Osmolality 268L, Uric Acid 3.9, Calcium Level 7.8L, Phosphorus Level 1.8L, Iron Level 24L, Total Iron Binding Capacity 190L, Percent Iron Saturation 13L, Unsaturated Iron Binding 166, Ferritin 1584H, Total Bilirubin 0.9, Aspartate Amino Transf (AST/SGOT) 28, Alanine Aminotransferase (ALT/SGPT) 29, Alkaline Phosphatase 84, Total Protein 6.5, Albumin 2.5L, Globulin 4.0, Albumin/Globulin Ratio 0.6L, Amylase Level 26, Lipase 384, Carcinoembryonic Antigen [Pending], Vitamin B12 Level 488, Folate 9.0, Thyroid Stimulating Hormone (TSH) 1.356, Free Thyroxine 1.05, Hepatitis A IgM Antibody [Pending], Hepatitis B Surface Antigen [Pending], Hepatitis B Core IgM Antibody [Pending], Hepatitis C Antibody [Pending], HIV (1&2) Antibody Rapid Preliminary positiveH Current Medications Medications (Trade) Dose Ordered Sig/Veronica Route PRN Reason Start Time Stop Time Status Last Admin Dose Admin Acetaminophen (Tylenol) 650 mg Q4H PRN ORAL fever 08/06/17 14:15 09/05/17 14:14 08/06/17 21:42 Al Hydroxide/Mg Hydroxide (Mylanta II) 30 ml Q6H PRN ORAL dyspepsia 08/06/17 14:15 09/05/17 14:14 Dextrose (Dextrose 50%) 25 ml STAT PRN IV Hypoglycemia 08/06/17 14:15 09/05/17 14:14 Dextrose (Dextrose 50%) 50 ml STAT PRN IV Hypoglycemia 08/06/17 15:15 09/05/17 15:14 Diatrizoate Meglum/ Diatrizoate Sod (Gastrografin) 30 ml NOW PRN ORAL Radiology Procedure 08/06/17 10:45 08/08/17 10:44 Diphenhydramine HCl (Benadryl) 25 mg Q6H PRN ORAL Itching/Pruritis 08/06/17 14:15 09/05/17 14:14 Docusate Sodium (Colace) 100 mg TWICE A DAY ORAL 08/06/17 18:00 09/05/17 17:59 08/07/17 08:31 Heparin Sodium (Porcine) (Heparin 5000 units/ml) 5,000 units EVERY 12 HOURS SUBQ 08/06/17 21:00 09/05/17 20:59 Iopamidol (Isovue-300 100ml) 100 ml NOW PRN INJ Radiology Procedure 08/06/17 10:45 08/08/17 10:44 Lorazepam (Ativan 2mg/ml 1ml) 1 mg Q4H PRN IV agitation 08/06/17 14:15 08/13/17 14:14 Metoclopramide HCl (Reglan) 10 mg Q6H PRN IVP REFRACTORY N/V 08/06/17 14:15 09/05/17 14:14 Morphine Sulfate (Morphine Sulfate) 2 mg Q4H PRN IVP Severe Pain (Pain Scale 7-10) 08/06/17 14:15 08/13/17 14:14 08/07/17 11:14 Nitroglycerin (Ntg) 0.4 mg Q5M X 3 DOSES PRN SL Prn Chest Pain 08/06/17 14:15 09/05/17 14:14 Ondansetron HCl (Zofran) 4 mg Q6H PRN IVP Nausea & Vomiting 08/06/17 14:15 09/05/17 14:14 Pantoprazole (Protonix) 40 mg DAILY IV 08/07/17 09:00 09/06/17 08:59 08/07/17 08:31 Polyethylene Glycol (Miralax) 17 gm BEDTIME ORAL 08/06/17 21:00 09/05/17 20:59 08/06/17 21:43 Sodium Chloride 1,000 ml @ 75 mls/hr [id number] IV 08/06/17 16:30 09/05/17 16:29 08/07/17 06:00 Temazepam (Restoril) 15 mg HSPRN PRN ORAL Insomnia 08/06/17 21:00 08/13/17 20:59 08/06/17 21:42 Sally Cox MD Aug 07, 2017 13:38
--- NOTE | 2017-08-07 13:54 | Consultation ---
Consult Note Consult Note asked to eval for hyponatremia Patient presents with 2 problems. His main complaint is that he hasn't moved his bowels for 10 days. He feels dehydrated. His urine has had decreased amounts and has been dark in color. He feels constipated and full. The pain is significant in his abdomen and constant. He feels nauseated but has not been vomiting. His history of HIV and hepatitis C but the hepatitis C was treated and has been cured. The second problem is that he feels short of breath. She stopped smoking on Sunday. He has a history of COPD and asthma. He has an inhaler at home. He denies any chest pain, productive cough. He denies any fevers or chills. interviewed, examined data reviewed Assessment/Plan Sever HypoNatremia HypoAlbuminemia HIV + Chronic Pain MultiDrug abuse: coccaine MJ Amphetamines Anemia COPD Hep C 3% Saline PRN Lasix monitor lytes Rashad Mag Phos as needed JAMI KRISHNAMURTHY Aug 07, 2017 13:54
--- NOTE | 2017-08-07 13:57 | GI Progress Note ---
Assessment/Plan Problems: (1) Polysubstance (excluding opioids) dependence ICD Codes: F19.20 - Other psychoactive substance dependence, uncomplicated SNOMED: 90778582 (2) Hepatitis C ICD Codes: B19.20 - Unspecified viral hepatitis C without hepatic coma SNOMED: 65233341 (3) Constipated ICD Codes: K59.00 - Constipation, unspecified SNOMED: 47766537 (4) Hyponatremia ICD Codes: E87.1 - Hypo-osmolality and hyponatremia SNOMED: 90936982 (5) HIV (human immunodeficiency virus infection) ICD Codes: B20 - Human immunodeficiency virus [HIV] disease SNOMED: 92926792 (6) Abdominal pain ICD Codes: R10.9 - Unspecified abdominal pain SNOMED: 80207355 Qualifiers: Qualified Codes: R10.32 - Left lower quadrant pain Status: stable Status Narrative Discussed with Dr. Lee. Assessment/Plan CT reviewed >> - Small left pleural effusion and left basilar atelectasis and possibly some consolidation - No definite acute abdominal or pelvic process - No CT evidence of significant constipation - Colonic diverticulosis. No evidence of diverticulitis - Mildly hypoattenuating liver, consistent with fatty change - prominent prostate, with nonspecific hypoattenuation HIV positive hep panel pending Utox positive for cocaine, MJ, amphetamines OB negative regular diet monitor H&H, prn transfusions bowel regime ppi fu labs, hepatitis panel outpatient GI procedures Subjective Gastrointestinal/Abdominal: Reports: no symptoms Objective Last 24 Hour Vital Signs Date Time Temp Pulse Resp B/P (MAP) Pulse Ox O2 Delivery O2 Flow Rate FiO2 08/07/17 11:44 98.6 08/07/17 11:14 98.6 08/07/17 08:00 98.6 96 20 141/57 98 Room Air 98.6 08/07/17 04:00 97.9 91 20 120/74 97 Room Air 97.9 08/06/17 23:58 98.1 87 20 135/65 99 Room Air 98.1 08/06/17 22:41 97.3 08/06/17 21:42 101.7 08/06/17 19:27 101.7 96 20 134/68 95 Room Air 101.7 08/06/17 16:16 98.2 109 22 125/79 99 Room Air 98.2 08/06/17 15:57 98.4 112 20 124/80 98 Nasal Cannula 2.0 28 98.4 08/06/17 15:27 98.4 112 20 124/80 98 Nasal Cannula 2.0 28 98.4 08/06/17 14:45 98.4 08/06/17 14:15 98.4 Intake and Output 08/06/17 08/07/17 19:00 07:00 Intake Total 500 ml 1005 ml Output Total 0 ml Balance 500 ml 1005 ml Intake Oral 350 ml 480 ml IV Total 150 ml 525 ml Output Urine Total 0 ml # Voids 5 # Bowel Movements 2 3 Laboratory Tests Test 08/06/17 16:00 08/07/17 00:00 08/07/17 05:10 08/07/17 05:20 Urine Osmolality 852 mOsm/kg (429-449) H Urine Random Sodium < 20 mmol/L (20-110) L Urine Opiates Screen Negative (NEGATIVE) Urine Barbiturates Screen Negative (NEGATIVE) Phencyclidine (PCP) Screen Negative (NEGATIVE) Urine Amphetamines Screen Positive (NEGATIVE) H Urine Benzodiazepines Screen Negative (NEGATIVE) Urine Cocaine Screen Positive (NEGATIVE) H Urine Marijuana (THC) Screen Positive (NEGATIVE) H HIV-1 Antibody Pending HIV-2 Antibody Pending Stool Occult Blood Negative (NEGATIVE) White Blood Count 11.3 K/UL (4.8-10.8) H Red Blood Count 4.57 M/UL (4.70-6.10) L Hemoglobin 13.9 G/DL (14.2-18.0) L Hematocrit 39.0 % (42.0-52.0) L Mean Corpuscular Volume 85 FL (80-99) Mean Corpuscular Hemoglobin 30.4 PG (27.0-31.0) Mean Corpuscular Hemoglobin Concent 35.5 G/DL (32.0-36.0) Red Cell Distribution Width 11.0 % (11.6-14.8) L Platelet Count 130 K/UL (150-450) L Mean Platelet Volume 8.1 FL (6.5-10.1) Neutrophils (%) (Auto) % (45.0-75.0) Lymphocytes (%) (Auto) % (20.0-45.0) Monocytes (%) (Auto) % (1.0-10.0) Eosinophils (%) (Auto) % (0.0-3.0) Basophils (%) (Auto) % (0.0-2.0) Differential Total Cells Counted 100 Neutrophils % (Manual) 84 % (45-75) H Lymphocytes % (Manual) 5 % (20-45) L Monocytes % (Manual) 9 % (1-10) Eosinophils % (Manual) 1 % (0-3) Basophils % (Manual) 0 % (0-2) Band Neutrophils 1 % (0-8) Platelet Estimate Decreased L Platelet Morphology Normal Red Blood Cell Morphology Normal Reticulocyte Count 0.9 % (0.0-2.0) Prothrombin Time 10.5 SEC (9.30-11.50) Prothromb Time International Ratio 1.0 (0.9-1.1) Activated Partial Thromboplast Time 28 SEC (23-33) Sodium Level 124 MMOL/L (136-145) L Potassium Level 4.1 MMOL/L (3.5-5.1) Chloride Level 90 MMOL/L (98-107) L Carbon Dioxide Level 25 MMOL/L (21-32) Blood Urea Nitrogen 12 mg/dL (7-18) Creatinine 1.0 MG/DL (0.55-1.30) Estimat Glomerular Filtration Rate > 60 mL/min (>60) Glucose Level 167 MG/DL (74-106) H Osmolality 268 mOsm/kg (297-317) L Uric Acid 3.9 MG/DL (2.6-7.2) Calcium Level 7.8 MG/DL (8.5-10.1) L Phosphorus Level 1.8 MG/DL (2.5-4.9) L Iron Level 24 ug/dL (50-175) L Total Iron Binding Capacity 190 ug/dL (250-450) L Percent Iron Saturation 13 % (15-50) L Unsaturated Iron Binding 166 ug/dL (112-346) Ferritin 1584 NG/ML (8-388) H Total Bilirubin 0.9 MG/DL (0.2-1.0) Aspartate Amino Transf (AST/SGOT) 28 U/L (15-37) Alanine Aminotransferase (ALT/SGPT) 29 U/L (12-78) Alkaline Phosphatase 84 U/L (46-116) Total Protein 6.5 G/DL (6.4-8.2) Albumin 2.5 G/DL (3.4-5.0) L Globulin 4.0 g/dL Albumin/Globulin Ratio 0.6 (1.0-2.7) L Amylase Level 26 U/L (25-115) Lipase 384 U/L (73-393) Carcinoembryonic Antigen Pending Vitamin B12 Level 488 PG/ML (193-986) Folate 9.0 NG/ML (8.6-58.9) Thyroid Stimulating Hormone (TSH) 1.356 uiU/mL (0.358-3.740) Free Thyroxine 1.05 NG/DL (0.76-1.46) Hepatitis A IgM Antibody Pending Hepatitis B Surface Antigen Pending Hepatitis B Core IgM Antibody Pending Hepatitis C Antibody Pending HIV (1&2) Antibody Rapid Preliminary positive Height (Feet): 5 Height (Inches): 8.00 Weight (Pounds): 160 General Appearance: WD/WN, no apparent distress, alert Cardiovascular: normal rate Respiratory/Chest: normal breath sounds, no respiratory distress Abdominal Exam: normal bowel sounds, non tender, soft Extremities: normal range of motion, non-tender Rupinder Armstrong NP Aug 07, 2017 13:57
--- NOTE | 2017-08-07 14:08 | Consultation ---
History of Present Illness General Date patient seen: Aug 07, 2017 Chief Complaint: Constipation Referring physician: ANAT BARNES Reason for Consultation: COPD Present Illness HPI 56 y/o M with hx of HIV and Hep C s/p tx (20 years ago) with sustained virologic response, COPD/asthma, tobacco abuse (stopped smoking ~4 days ago) presents to ED on on 08/06 with 10 days of constipation, decreased urine output and urine of dark color. +nausea,SOB Denies vomiting, CP, cough, f/c Febrile up to 101.7 WBC up to 13, now down to 11 Per patient, HIV for 25 years- he is non-progresser. Has had high Cd4 and undetectable VL and never on HIV treatment Allergies: Coded Allergies: No Known Allergies (Unverified , 08/06/17) Medication History No Active Prescriptions or Reported Meds Patient History Healthcare decision maker Resuscitation status Full Code Advanced Directive on File Patient History Narrative Pmhx: as above Shx: The patient stated he recently quit drinking this year, has history of crystal meth use and recently quit. smoking - Stopped on Sunday Fhx: non contributory Review of Systems All Other Systems: negative except mentioned in HPI Physical Exam Physical Exam Narrative General Appearance: WD/WN HEENT: atraumatic Respiratory/Chest: chest wall non-tender, lungs clear Cardiovascular: normal peripheral pulses, normal rate Abdomen: normal bowel sounds, soft, non tender Skin: no rash Last 24 Hour Vital Signs Date Time Temp Pulse Resp B/P (MAP) Pulse Ox O2 Delivery O2 Flow Rate FiO2 08/07/17 11:44 98.6 08/07/17 11:14 98.6 08/07/17 08:00 98.6 96 20 141/57 98 Room Air 98.6 08/07/17 04:00 97.9 91 20 120/74 97 Room Air 97.9 08/06/17 23:58 98.1 87 20 135/65 99 Room Air 98.1 08/06/17 22:41 97.3 08/06/17 21:42 101.7 08/06/17 19:27 101.7 96 20 134/68 95 Room Air 101.7 08/06/17 16:16 98.2 109 22 125/79 99 Room Air 98.2 08/06/17 15:57 98.4 112 20 124/80 98 Nasal Cannula 2.0 28 98.4 08/06/17 15:27 98.4 112 20 124/80 98 Nasal Cannula 2.0 28 98.4 08/06/17 14:45 98.4 08/06/17 14:15 98.4 Intake and Output 08/06/17 08/07/17 19:00 07:00 Intake Total 500 ml 1005 ml Output Total 0 ml Balance 500 ml 1005 ml Intake Oral 350 ml 480 ml IV Total 150 ml 525 ml Output Urine Total 0 ml # Voids 5 # Bowel Movements 2 3 Laboratory Tests Test 08/06/17 16:00 08/07/17 00:00 08/07/17 05:10 08/07/17 05:20 Urine Osmolality 852 mOsm/kg (429-449) H Urine Random Sodium < 20 mmol/L (20-110) L Urine Opiates Screen Negative (NEGATIVE) Urine Barbiturates Screen Negative (NEGATIVE) Phencyclidine (PCP) Screen Negative (NEGATIVE) Urine Amphetamines Screen Positive (NEGATIVE) H Urine Benzodiazepines Screen Negative (NEGATIVE) Urine Cocaine Screen Positive (NEGATIVE) H Urine Marijuana (THC) Screen Positive (NEGATIVE) H HIV-1 Antibody Pending HIV-2 Antibody Pending Stool Occult Blood Negative (NEGATIVE) White Blood Count 11.3 K/UL (4.8-10.8) H Red Blood Count 4.57 M/UL (4.70-6.10) L Hemoglobin 13.9 G/DL (14.2-18.0) L Hematocrit 39.0 % (42.0-52.0) L Mean Corpuscular Volume 85 FL (80-99) Mean Corpuscular Hemoglobin 30.4 PG (27.0-31.0) Mean Corpuscular Hemoglobin Concent 35.5 G/DL (32.0-36.0) Red Cell Distribution Width 11.0 % (11.6-14.8) L Platelet Count 130 K/UL (150-450) L Mean Platelet Volume 8.1 FL (6.5-10.1) Neutrophils (%) (Auto) % (45.0-75.0) Lymphocytes (%) (Auto) % (20.0-45.0) Monocytes (%) (Auto) % (1.0-10.0) Eosinophils (%) (Auto) % (0.0-3.0) Basophils (%) (Auto) % (0.0-2.0) Differential Total Cells Counted 100 Neutrophils % (Manual) 84 % (45-75) H Lymphocytes % (Manual) 5 % (20-45) L Monocytes % (Manual) 9 % (1-10) Eosinophils % (Manual) 1 % (0-3) Basophils % (Manual) 0 % (0-2) Band Neutrophils 1 % (0-8) Platelet Estimate Decreased L Platelet Morphology Normal Red Blood Cell Morphology Normal Reticulocyte Count 0.9 % (0.0-2.0) Prothrombin Time 10.5 SEC (9.30-11.50) Prothromb Time International Ratio 1.0 (0.9-1.1) Activated Partial Thromboplast Time 28 SEC (23-33) Sodium Level 124 MMOL/L (136-145) L Potassium Level 4.1 MMOL/L (3.5-5.1) Chloride Level 90 MMOL/L (98-107) L Carbon Dioxide Level 25 MMOL/L (21-32) Blood Urea Nitrogen 12 mg/dL (7-18) Creatinine 1.0 MG/DL (0.55-1.30) Estimat Glomerular Filtration Rate > 60 mL/min (>60) Glucose Level 167 MG/DL (74-106) H Osmolality 268 mOsm/kg (297-317) L Uric Acid 3.9 MG/DL (2.6-7.2) Calcium Level 7.8 MG/DL (8.5-10.1) L Phosphorus Level 1.8 MG/DL (2.5-4.9) L Iron Level 24 ug/dL (50-175) L Total Iron Binding Capacity 190 ug/dL (250-450) L Percent Iron Saturation 13 % (15-50) L Unsaturated Iron Binding 166 ug/dL (112-346) Ferritin 1584 NG/ML (8-388) H Total Bilirubin 0.9 MG/DL (0.2-1.0) Aspartate Amino Transf (AST/SGOT) 28 U/L (15-37) Alanine Aminotransferase (ALT/SGPT) 29 U/L (12-78) Alkaline Phosphatase 84 U/L (46-116) Total Protein 6.5 G/DL (6.4-8.2) Albumin 2.5 G/DL (3.4-5.0) L Globulin 4.0 g/dL Albumin/Globulin Ratio 0.6 (1.0-2.7) L Amylase Level 26 U/L (25-115) Lipase 384 U/L (73-393) Carcinoembryonic Antigen Pending Vitamin B12 Level 488 PG/ML (193-986) Folate 9.0 NG/ML (8.6-58.9) Thyroid Stimulating Hormone (TSH) 1.356 uiU/mL (0.358-3.740) Free Thyroxine 1.05 NG/DL (0.76-1.46) Hepatitis A IgM Antibody Pending Hepatitis B Surface Antigen Pending Hepatitis B Core IgM Antibody Pending Hepatitis C Antibody Pending HIV (1&2) Antibody Rapid Preliminary positive Height (Feet): 5 Height (Inches): 8.00 Weight (Pounds): 160 Medications Current Medications Medications (Trade) Dose Ordered Sig/Veronica Route PRN Reason Start Time Stop Time Status Last Admin Dose Admin Acetaminophen (Tylenol) 650 mg Q4H PRN ORAL fever 08/06/17 14:15 09/05/17 14:14 08/06/17 21:42 Al Hydroxide/Mg Hydroxide (Mylanta II) 30 ml Q6H PRN ORAL dyspepsia 08/06/17 14:15 09/05/17 14:14 Dextrose (Dextrose 50%) 25 ml STAT PRN IV Hypoglycemia 08/06/17 14:15 09/05/17 14:14 Dextrose (Dextrose 50%) 50 ml STAT PRN IV Hypoglycemia 08/06/17 15:15 09/05/17 15:14 Diatrizoate Meglum/ Diatrizoate Sod (Gastrografin) 30 ml NOW PRN ORAL Radiology Procedure 08/06/17 10:45 08/08/17 10:44 Diphenhydramine HCl (Benadryl) 25 mg Q6H PRN ORAL Itching/Pruritis 08/06/17 14:15 09/05/17 14:14 Docusate Sodium (Colace) 100 mg TWICE A DAY ORAL 08/06/17 18:00 09/05/17 17:59 08/07/17 08:31 Heparin Sodium (Porcine) (Heparin 5000 units/ml) 5,000 units EVERY 12 HOURS SUBQ 08/06/17 21:00 09/05/17 20:59 Iopamidol (Isovue-300 100ml) 100 ml NOW PRN INJ Radiology Procedure 08/06/17 10:45 08/08/17 10:44 Lorazepam (Ativan 2mg/ml 1ml) 1 mg Q4H PRN IV agitation 08/06/17 14:15 08/13/17 14:14 Metoclopramide HCl (Reglan) 10 mg Q6H PRN IVP REFRACTORY N/V 08/06/17 14:15 09/05/17 14:14 Morphine Sulfate (Morphine Sulfate) 2 mg Q4H PRN IVP Severe Pain (Pain Scale 7-10) 08/06/17 14:15 08/13/17 14:14 08/07/17 11:14 Nitroglycerin (Ntg) 0.4 mg Q5M X 3 DOSES PRN SL Prn Chest Pain 08/06/17 14:15 09/05/17 14:14 Ondansetron HCl (Zofran) 4 mg Q6H PRN IVP Nausea & Vomiting 08/06/17 14:15 09/05/17 14:14 Pantoprazole (Protonix) 40 mg DAILY IV 08/07/17 09:00 09/06/17 08:59 08/07/17 08:31 Polyethylene Glycol (Miralax) 17 gm BEDTIME ORAL 08/06/17 21:00 09/05/17 20:59 08/06/17 21:43 Sodium Chloride 500 ml @ 30 mls/hr ONCE ONCE IVPB 08/07/17 14:00 08/08/17 06:39 UNV Sodium Phosphate 30 mm/Sodium Chloride 285 ml @ 47.5 mls/hr ONCE ONCE IVPB 08/07/17 14:00 08/07/17 19:59 UNV Temazepam (Restoril) 15 mg HSPRN PRN ORAL Insomnia 08/06/17 21:00 08/13/17 20:59 08/06/17 21:42 Assessment/Plan Assessment/Plan Abx: Cefepime x1 08/06 Levaquin x1 08/06 Assessment: Constipation -CT abd/p w/: Small left pleural effusion and left basilar atelectasis and possibly some consolidation. No definite acute abdominal or pelvic process. No CT evidence of significant constipation. Colonic diverticulosis. No evidence of diverticulitis. Mildly hypoattenuating liver, consistent with fatty change. 5 mm fat attenuation nodule is seen within the left adrenal. Prominent prostate, with nonspecific hypoattenuation. Subcentimeter low-attenuation left renal lesion, too small to characterize, most likely benign simple cysts. 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 Will continue to follow along with you. Discussed with Steph Giordano M.D. Aug 07, 2017 14:08
[2017-08-07] MEDS ORDERED: NaCl 3% 500ml 500 ML IV ONE (15:30)
[2017-08-07] MEDS ORDERED: Sodium Phosphate 30 MM in NS 275 ML IVPB ONE (15:30)
[2017-08-07] MEDS ORDERED: Sodium Chloride 3% 4ml Nebul Soln INH ONE (16:00)
[2017-08-07] MEDS: cefTRIAXone 1 GM in D5W 110 ML IVPB SCH (17:56)
[2017-08-07 19:12] VITALS: BP 136/71
[2017-08-07] MEDS: Miralax 17gm pkt ORAL SCH (20:34)
--- NOTE | 2017-08-07 20:45 | History and Physical Report ---
DATE OF ADMISSION: 08/06/2017 TIME SEEN: At 1 p.m. SIGNAL TIMER: 1. Sally Cox M.D. 2. Russell Ewing M.D. 3. Matthew Lee M.D. 4. Mushtaq Almonte M.D. CHIEF COMPLAINT: Abdominal pain, constipation, and hyponatremia. HISTORY OF PRESENT ILLNESS: This is a 56-year-old male, who lives at home, presented with the above-mentioned diagnosis, came in to [facility] last night, constipation for he said 10 days and the patient was admitted to medical floor for further treatment. He has had bowel movement this morning. Currently calm in bed, feeling little bit better. PAST MEDICAL HISTORY: HVI, hep C. PAST SURGICAL HISTORY: Right leg. MEDICATIONS: Include Protonix, heparin, Restoril, MiraLAX, Colace, Tylenol, morphine, Zofran, Benadryl, Mylanta. ALLERGIES: Denies. SOCIAL HISTORY: Positive smoking. No alcohol. No intravenous drug abuse. FAMILY HISTORY: Noncontributory. PHYSICAL EXAMINATION: GENERAL: Calm in bed, oriented x3, in no acute distress. VITAL SIGNS: Temperature is 98, pulse 98, respirations 20, and blood pressure 141/57. CARDIOVASCULAR: No murmur. LUNGS: Distant and clear. ABDOMEN: Bowel sounds positive. Nontender. Nondistended. EXTREMITIES: No cyanosis, clubbing, or edema. NEUROLOGIC: The patient moves all extremities, slightly weak. LABORATORY AND DIAGNOSTIC DATA: White count 11.3, hemoglobin and hematocrit 13 over 39, platelets 130. BMP shows glucose 167, sodium 124, chloride 90 albumin 2.5. INR is 1.0, PTT 28. Urine tox positive for amphetamine, cocaine, marijuana, . Urinalysis 5+ occult blood, 3+ protein. ASSESSMENT: 1. Hyponatremia. 2. Abdominal pain. 3. Drug abuse. 4. Constipation. 5. Human immunodeficiency virus. PLAN: 1. Continue previous medications. 2. Pain control. 3. Gastrointestinal followup. 4. Laxatives as needed. 5. IV fluids. 6. OT, PT, and dietary evaluation. 7. CBC and BMP in morning. 8. We will continue to follow the patient. Chemo Dietrich D.O. DR: Maribell JOB#: [id number] CC:
[2017-08-07] MEDS ORDERED: Iron Sucrose 100 MG in NS 55 ML IV SCH (21:00)
[2017-08-07 23:55] VITALS: BP 134/71
[2017-08-08 03:45] VITALS: BP 126/60
[2017-08-08] MEDS: Morphine Sulfate 2mg/ml Inj IVP PRN ×3 (04:03→12:02)
[2017-08-08 07:15] LABS: ALANINE AMINOTRANSFERASE 24 U/L (12-78); ALBUMIN 2.1 G/DL (3.4-5.0); ALBUMIN/GLOBULIN RATIO 0.5 (1.0-2.7); ALKALINE PHOSPHATASE 117 U/L (46-116); ANION GAP 11 mmol/L (5-15); ASPARTATE AMINO TRANSFERASE 21 U/L (15-37); BILIRUBIN,TOTAL 0.8 MG/DL (0.2-1.0); BLOOD UREA NITROGEN 7 mg/dL (7-18); CALCIUM 8.1 MG/DL (8.5-10.1); CARBON DIOXIDE 24 MMOL/L (21-32); CHLORIDE 92 MMOL/L (98-107); CHOLESTEROL 80 MG/DL (< 200); CREATININE 0.8 MG/DL (0.55-1.30); GAMMA GLUTAMYL TRANSPEPTIDASE 35 U/L (5-85); HDL CHOLESTEROL 17 MG/DL (40-60); PHOSPHORUS 1.8 MG/DL (2.5-4.9); SODIUM 126 MMOL/L (136-145); TRIGLYCERIDES 70 MG/DL (30-150)
[2017-08-08 07:24] LABS: HEMATOCRIT 34.9 % (42.0-52.0); HEMOGLOBIN 12.6 G/DL (14.2-18.0); MEAN CORPUSCULAR VOLUME 86 FL (80-99); PLATELET COUNT 145 K/UL (150-450); RED BLOOD COUNT 4.06 M/UL (4.70-6.10); RED CELL DISTRIBUTION WIDTH 11.1 % (11.6-14.8); WHITE BLOOD COUNT 14.5 K/UL (4.8-10.8)
[2017-08-08 08:00] VITALS: BP 132/66
[2017-08-08] MEDS: Docusate 100mg cap ORAL SCH ×2 (08:08→17:06)
[2017-08-08] MEDS: Heparin 5000 units/ml inj SUBQ SCH ×2 (08:08→20:45)
[2017-08-08] MEDS ORDERED: Potassium Phosphate 30 MM in NS 275 ML IV ONE (09:00)
--- NOTE | 2017-08-08 10:49 | GI Progress Note ---
Assessment/Plan Problems: (1) Polysubstance (excluding opioids) dependence ICD Codes: F19.20 - Other psychoactive substance dependence, uncomplicated SNOMED: 65378016 (2) Hepatitis C ICD Codes: B19.20 - Unspecified viral hepatitis C without hepatic coma SNOMED: 59255384 (3) Constipated ICD Codes: K59.00 - Constipation, unspecified SNOMED: 61205813 (4) Hyponatremia ICD Codes: E87.1 - Hypo-osmolality and hyponatremia SNOMED: 23030340 (5) HIV (human immunodeficiency virus infection) ICD Codes: B20 - Human immunodeficiency virus [HIV] disease SNOMED: 49043596 (6) Abdominal pain ICD Codes: R10.9 - Unspecified abdominal pain SNOMED: 68587083 Qualifiers: Qualified Codes: R10.32 - Left lower quadrant pain Status: stable Status Narrative Discussed with Dr. Lee. Assessment/Plan CT reviewed >> - Small left pleural effusion and left basilar atelectasis and possibly some consolidation - No definite acute abdominal or pelvic process - No CT evidence of significant constipation - Colonic diverticulosis. No evidence of diverticulitis - Mildly hypoattenuating liver, consistent with fatty change - prominent prostate, with nonspecific hypoattenuation HIV positive hep C antibody positive Utox positive for cocaine, MJ, amphetamines OB negative regular diet monitor H&H, prn transfusions bowel regime ppi fu labs outpatient GI procedures Subjective Gastrointestinal/Abdominal: Reports: no symptoms Objective Last 24 Hour Vital Signs Date Time Temp Pulse Resp B/P (MAP) Pulse Ox O2 Delivery O2 Flow Rate FiO2 08/08/17 08:00 98.2 93 20 132/66 94 Room Air 98.2 08/08/17 04:33 98.1 08/08/17 04:03 98.1 08/08/17 04:00 94 Room Air 08/08/17 03:45 98.1 64 20 126/60 94 Room Air 98.1 08/08/17 00:00 94 Room Air 08/07/17 23:55 98.1 78 20 134/71 94 Room Air 98.1 08/07/17 23:35 98.8 08/07/17 20:12 94 Room Air 08/07/17 19:37 98.8 08/07/17 19:12 98.8 88 20 136/71 94 Room Air 98.8 08/07/17 15:31 98.6 08/07/17 15:15 98.6 08/07/17 14:16 98.6 08/07/17 11:14 98.6 Intake and Output 08/07/17 08/08/17 19:00 07:00 Intake Total 340.0 ml 455.0 ml Balance 340.0 ml 455.0 ml IV Total 340.0 ml 455.0 ml Laboratory Tests Test 08/08/17 05:20 White Blood Count Pending Red Blood Count 4.06 M/UL (4.70-6.10) L Hemoglobin 12.6 G/DL (14.2-18.0) L Hematocrit 34.9 % (42.0-52.0) L Mean Corpuscular Volume 86 FL (80-99) Mean Corpuscular Hemoglobin 31.0 PG (27.0-31.0) Mean Corpuscular Hemoglobin Concent 36.1 G/DL (32.0-36.0) H Red Cell Distribution Width 11.1 % (11.6-14.8) L Platelet Count 145 K/UL (150-450) L Mean Platelet Volume 8.0 FL (6.5-10.1) Neutrophils (%) (Auto) % (45.0-75.0) Lymphocytes (%) (Auto) % (20.0-45.0) Monocytes (%) (Auto) % (1.0-10.0) Eosinophils (%) (Auto) % (0.0-3.0) Basophils (%) (Auto) % (0.0-2.0) Neutrophils % (Manual) Pending Lymphocytes % (Manual) Pending Lymphocytes Pending Platelet Estimate Pending Platelet Morphology Pending Sodium Level 126 MMOL/L (136-145) L Potassium Level 3.0 MMOL/L (3.5-5.1) L Chloride Level 92 MMOL/L (98-107) L Carbon Dioxide Level 24 MMOL/L (21-32) Anion Gap 11 mmol/L (5-15) Blood Urea Nitrogen 7 mg/dL (7-18) Creatinine 0.8 MG/DL (0.55-1.30) Estimat Glomerular Filtration Rate > 60 mL/min (>60) Glucose Level 113 MG/DL (74-106) H Hemoglobin A1c 6.1 % (4.3-6.0) H Uric Acid 3.0 MG/DL (2.6-7.2) Calcium Level 8.1 MG/DL (8.5-10.1) L Phosphorus Level 1.8 MG/DL (2.5-4.9) L Magnesium Level 1.9 MG/DL (1.8-2.4) Total Bilirubin 0.8 MG/DL (0.2-1.0) Gamma Glutamyl Transpeptidase 35 U/L (5-85) Aspartate Amino Transf (AST/SGOT) 21 U/L (15-37) Alanine Aminotransferase (ALT/SGPT) 24 U/L (12-78) Alkaline Phosphatase 117 U/L (46-116) H Pro-B-Type Natriuretic Peptide 635 pg/mL (0-125) H Total Protein 6.5 G/DL (6.4-8.2) Albumin 2.1 G/DL (3.4-5.0) L Globulin 4.4 g/dL Albumin/Globulin Ratio 0.5 (1.0-2.7) L Triglycerides Level 70 MG/DL (30-150) Cholesterol Level 80 MG/DL (< 200) LDL Cholesterol 64 mg/dL (<100) HDL Cholesterol 17 MG/DL (40-60) L Cholesterol/HDL Ratio 4.7 (3.3-4.4) H Percent CD3 Cells Pending Absolute CD3 Count Pending Percent CD4 Cells Pending Absolute CD4 Count Pending T-Lymphocyte CD4/CD8 Ratio Pending Percent CD8 Cells Pending Absolute CD8 Count Pending HIV-1 RNA (PCR) log10 Value Pending HIV-1 RNA Ultraquantitative (PCR) Pending Height (Feet): 5 Height (Inches): 8.00 Weight (Pounds): 160 General Appearance: WD/WN, no apparent distress, alert Cardiovascular: normal rate Respiratory/Chest: normal breath sounds, no respiratory distress Abdominal Exam: normal bowel sounds, non tender, soft Extremities: normal range of motion, non-tender Rupinder Armstrong NP Aug 08, 2017 10:49
[2017-08-08 12:00] VITALS: BP 131/57
[2017-08-08] MEDS: LORazepam Inj 2mg/ml 1ml IV PRN (12:55)
--- NOTE | 2017-08-08 13:33 | Pulmonology Progress Note ---
Assessment/Plan Problems: (1) Abdominal pain (2) Constipation (3) Hyponatremia (4) COPD (chronic obstructive pulmonary disease) (5) Hepatitis C (6) HIV (human immunodeficiency virus infection) Assessment/Plan laxative, GI evaluation appreciated respiratory treatment Hyponatremia w/u HIV studies, Hep C positive titrate fio2 to sat of 92% ID evaluation appreciated pt/ot, pt has a walker. Subjective ROS Limited/Unobtainable: No Constitutional: Reports: no symptoms HEENT: Repors: no symptoms Respiratory: Reports: no symptoms Allergies: Coded Allergies: No Known Allergies (Unverified , 08/06/17) Objective Last 24 Hour Vital Signs Date Time Temp Pulse Resp B/P (MAP) Pulse Ox O2 Delivery O2 Flow Rate FiO2 08/08/17 12:27 101.8 08/08/17 12:26 101.8 101.8 08/08/17 12:00 101.5 91 18 131/57 96 Room Air 101.5 08/08/17 12:00 101.5 91 20 131/57 96 101.5 08/08/17 08:00 98.2 93 20 132/66 94 Room Air 98.2 08/08/17 04:33 98.1 08/08/17 04:03 98.1 08/08/17 04:00 94 Room Air 08/08/17 03:45 98.1 64 20 126/60 94 Room Air 98.1 08/08/17 00:00 94 Room Air 08/07/17 23:55 98.1 78 20 134/71 94 Room Air 98.1 08/07/17 23:35 98.8 08/07/17 20:12 94 Room Air 08/07/17 19:37 98.8 08/07/17 19:12 98.8 88 20 136/71 94 Room Air 98.8 08/07/17 15:31 98.6 08/07/17 15:15 98.6 08/07/17 14:16 98.6 Intake and Output 08/07/17 08/08/17 19:00 07:00 Intake Total 340.0 ml 455.0 ml Balance 340.0 ml 455.0 ml IV Total 340.0 ml 455.0 ml General Appearance: WD/WN HEENT: normocephalic Respiratory/Chest: chest wall non-tender, lungs clear Cardiovascular: normal peripheral pulses, normal rate Abdomen: normal bowel sounds, soft, non tender Extremities: no cyanosis 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 Laboratory Tests 08/08/17 05:20: White Blood Count [Pending], Red Blood Count 4.06L, Hemoglobin 12.6L, Hematocrit 34.9L, Mean Corpuscular Volume 86, Mean Corpuscular Hemoglobin 31.0, Mean Corpuscular Hemoglobin Concent 36.1H, Red Cell Distribution Width 11.1L, Platelet Count 145L, Mean Platelet Volume 8.0, Neutrophils (%) (Auto) , Lymphocytes (%) (Auto) , Monocytes (%) (Auto) , Eosinophils (%) (Auto) , Basophils (%) (Auto) , Differential Total Cells Counted 100, Neutrophils % ( Manual) 86H, Lymphocytes % (Manual) 6L, Monocytes % (Manual) 8, Eosinophils % ( Manual) 0, Basophils % (Manual) 0, Band Neutrophils 0, Lymphocytes [Pending], Platelet Estimate DecreasedL, Platelet Morphology Normal, Red Blood Cell Morphology Normal, Sodium Level 126L, Potassium Level 3.0L, Chloride Level 92L, Carbon Dioxide Level 24, Anion Gap 11, Blood Urea Nitrogen 7, Creatinine 0.8, Estimat Glomerular Filtration Rate > 60, Glucose Level 113H, Hemoglobin A1c 6.1H , Uric Acid 3.0, Calcium Level 8.1L, Phosphorus Level 1.8L, Magnesium Level 1.9 , Total Bilirubin 0.8, Gamma Glutamyl Transpeptidase 35, Aspartate Amino Transf (AST/SGOT) 21, Alanine Aminotransferase (ALT/SGPT) 24, Alkaline Phosphatase 117H , Pro-B-Type Natriuretic Peptide 635H, Total Protein 6.5, Albumin 2.1L, Globulin 4.4, Albumin/Globulin Ratio 0.5L, Triglycerides Level 70, Cholesterol Level 80, LDL Cholesterol 64, HDL Cholesterol 17L, Cholesterol/HDL Ratio 4.7H, Percent CD3 Cells [Pending], Absolute CD3 Count [Pending], Percent CD4 Cells [ Pending], Absolute CD4 Count [Pending], T-Lymphocyte CD4/CD8 Ratio [Pending], Percent CD8 Cells [Pending], Absolute CD8 Count [Pending], HIV-1 RNA (PCR) log10 Value [Pending], HIV-1 RNA Ultraquantitative (PCR) [Pending] Current Medications Medications (Trade) Dose Ordered Sig/Veronica Route PRN Reason Start Time Stop Time Status Last Admin Dose Admin Acetaminophen (Tylenol) 650 mg Q4H PRN ORAL fever 08/06/17 14:15 09/05/17 14:14 08/08/17 12:27 Ceftriaxone Sodium 1 gm/ Dextrose 110 ml @ 220 mls/hr Q24H IVPB 08/07/17 16:00 08/14/17 15:59 08/07/17 17:56 Dextrose (Dextrose 50%) 25 ml STAT PRN IV Hypoglycemia 08/06/17 14:15 09/05/17 14:14 Dextrose (Dextrose 50%) 50 ml STAT PRN IV Hypoglycemia 08/06/17 15:15 09/05/17 15:14 Diphenhydramine HCl (Benadryl) 25 mg Q6H PRN ORAL Itching/Pruritis 08/06/17 14:15 09/05/17 14:14 Docusate Sodium (Colace) 100 mg TWICE A DAY ORAL 08/06/17 18:00 09/05/17 17:59 08/07/17 17:56 Heparin Sodium (Porcine) (Heparin 5000 units/ml) 5,000 units EVERY 12 HOURS SUBQ 08/06/17 21:00 09/05/17 20:59 Lansoprazole (Prevacid) 30 mg DAILY ORAL 08/08/17 09:00 09/07/17 08:59 08/08/17 08:04 Lorazepam (Ativan 2mg/ml 1ml) 1 mg Q4H PRN IV agitation 08/06/17 14:15 08/13/17 14:14 08/08/17 12:55 Metoclopramide HCl (Reglan) 10 mg Q6H PRN IVP REFRACTORY N/V 08/06/17 14:15 09/05/17 14:14 Morphine Sulfate (Morphine Sulfate) 2 mg Q4H PRN IVP Severe Pain (Pain Scale 7-10) 08/06/17 14:15 08/13/17 14:14 08/08/17 12:02 Morphine Sulfate (Morphine Sulfate) 4 mg Q4H PRN IVP Severe Pain (Pain Scale 7-10) 08/08/17 13:30 08/15/17 13:29 UNV Nitroglycerin (Ntg) 0.4 mg Q5M X 3 DOSES PRN SL Prn Chest Pain 08/06/17 14:15 09/05/17 14:14 Polyethylene Glycol (Miralax) 17 gm BEDTIME ORAL 08/06/17 21:00 09/05/17 20:59 08/06/17 21:43 Potassium Phosphate 30 mm/ Sodium Chloride 285 ml @ 47.5 mls/hr ONCE ONCE IV 08/08/17 09:00 08/08/17 14:59 08/08/17 09:30 Temazepam (Restoril) 15 mg HSPRN PRN ORAL Insomnia 08/06/17 21:00 08/13/17 20:59 08/07/17 22:30 Slaly Cox MD Aug 08, 2017 13:33
--- NOTE | 2017-08-08 13:51 | Diagnostic Imaging Report ---
Indication: Abdominal pain, elevated bilirubin Technique: Stoner-scale and duplex images of the upper abdomen were obtained Comparison: Reference made to CT scan of earlier the same day Findings: Gallbladder demonstrates no stones or pericholecystic fluid. However, the wall is borderline thickened, although this is probably an artifact of under distention.. Sonographic Cote's sign is negative. Common bile duct measures 6 mm in diameter. No intrahepatic biliary ductal dilatation. Liver demonstrates normal echogenicity, no focal abnormality. No surface nodularity Portal vein and hepatic veins are patent. Pancreas is unremarkable. Spleen is mildly enlarged, measuring 14.5 cm long axis dimension Left kidney measures 12.1 cm in length. Right kidney measures 12.7 cm length. Both kidneys demonstrate normal echogenicity. There is no hydronephrosis. No focal abnormality . Abdominal aorta is partially obscured by bowel gas, visualized portions are non-aneurysmal . Impression: Negative for gallstones. Equivocal mild gallbladder wall thickening, most likely artifact of under distention, but the possibility of acute acalculous cholecystitis should be considered. Consider hepatobiliary nuclear scan if there is high clinical suspicion. Negative for dilated ducts Splenomegaly, and retrospect also evident on earlier CT scan Note suboptimal visualization of the abdominal aorta. This was normal on earlier CT
--- NOTE | 2017-08-08 14:07 | General Progress Note ---
Assessment/Plan Problem List: (1) Hepatitis C ICD Codes: B19.20 - Unspecified viral hepatitis C without hepatic coma SNOMED: 44087177 (2) Constipation ICD Codes: K59.00 - Constipation, unspecified SNOMED: 67076682 Qualifiers: Qualified Codes: K59.00 - Constipation, unspecified (3) Hyponatremia ICD Codes: E87.1 - Hypo-osmolality and hyponatremia SNOMED: 99958639 (4) Abdominal pain ICD Codes: R10.9 - Unspecified abdominal pain SNOMED: 62850530 Qualifiers: Qualified Codes: R10.32 - Left lower quadrant pain (5) HIV (human immunodeficiency virus infection) ICD Codes: B20 - Human immunodeficiency virus [HIV] disease SNOMED: 83542082 (6) Polysubstance (excluding opioids) dependence ICD Codes: F19.20 - Other psychoactive substance dependence, uncomplicated SNOMED: 38092645 Status: unchanged Assessment/Plan ot pt deit ivf goi neph f/u cbc bmp am dc plan snf Subjective Constitutional: Reports: weakness Allergies: Coded Allergies: No Known Allergies (Unverified , 08/06/17) All Systems: reviewed and negative except above Subjective bed calm Objective Last 24 Hour Vital Signs Date Time Temp Pulse Resp B/P (MAP) Pulse Ox O2 Delivery O2 Flow Rate FiO2 08/08/17 14:04 98.1 98.1 08/08/17 13:26 98.1 08/08/17 12:27 101.8 08/08/17 12:26 101.8 101.8 08/08/17 12:00 101.5 91 18 131/57 96 Room Air 101.5 08/08/17 12:00 101.5 91 20 131/57 96 101.5 08/08/17 08:00 98.2 93 20 132/66 94 Room Air 98.2 08/08/17 04:33 98.1 08/08/17 04:03 98.1 08/08/17 04:00 94 Room Air 08/08/17 03:45 98.1 64 20 126/60 94 Room Air 98.1 08/08/17 00:00 94 Room Air 08/07/17 23:55 98.1 78 20 134/71 94 Room Air 98.1 08/07/17 23:35 98.8 08/07/17 20:12 94 Room Air 08/07/17 19:37 98.8 08/07/17 19:12 98.8 88 20 136/71 94 Room Air 98.8 08/07/17 15:31 98.6 08/07/17 14:16 98.6 Intake and Output 08/07/17 08/08/17 19:00 07:00 Intake Total 340.0 ml 455.0 ml Balance 340.0 ml 455.0 ml IV Total 340.0 ml 455.0 ml Laboratory Tests 08/08/17 05:20: White Blood Count [Pending], Red Blood Count 4.06L, Hemoglobin 12.6L, Hematocrit 34.9L, Mean Corpuscular Volume 86, Mean Corpuscular Hemoglobin 31.0, Mean Corpuscular Hemoglobin Concent 36.1H, Red Cell Distribution Width 11.1L, Platelet Count 145L, Mean Platelet Volume 8.0, Neutrophils (%) (Auto) , Lymphocytes (%) (Auto) , Monocytes (%) (Auto) , Eosinophils (%) (Auto) , Basophils (%) (Auto) , Differential Total Cells Counted 100, Neutrophils % ( Manual) 86H, Lymphocytes % (Manual) 6L, Monocytes % (Manual) 8, Eosinophils % ( Manual) 0, Basophils % (Manual) 0, Band Neutrophils 0, Lymphocytes [Pending], Platelet Estimate DecreasedL, Platelet Morphology Normal, Red Blood Cell Morphology Normal, Sodium Level 126L, Potassium Level 3.0L, Chloride Level 92L, Carbon Dioxide Level 24, Anion Gap 11, Blood Urea Nitrogen 7, Creatinine 0.8, Estimat Glomerular Filtration Rate > 60, Glucose Level 113H, Hemoglobin A1c 6.1H , Uric Acid 3.0, Calcium Level 8.1L, Phosphorus Level 1.8L, Magnesium Level 1.9 , Total Bilirubin 0.8, Gamma Glutamyl Transpeptidase 35, Aspartate Amino Transf (AST/SGOT) 21, Alanine Aminotransferase (ALT/SGPT) 24, Alkaline Phosphatase 117H , Pro-B-Type Natriuretic Peptide 635H, Total Protein 6.5, Albumin 2.1L, Globulin 4.4, Albumin/Globulin Ratio 0.5L, Triglycerides Level 70, Cholesterol Level 80, LDL Cholesterol 64, HDL Cholesterol 17L, Cholesterol/HDL Ratio 4.7H, Percent CD3 Cells [Pending], Absolute CD3 Count [Pending], Percent CD4 Cells [ Pending], Absolute CD4 Count [Pending], T-Lymphocyte CD4/CD8 Ratio [Pending], Percent CD8 Cells [Pending], Absolute CD8 Count [Pending], HIV-1 RNA (PCR) log10 Value [Pending], HIV-1 RNA Ultraquantitative (PCR) [Pending] Height (Feet): 5 Height (Inches): 8.00 Weight (Pounds): 160 General Appearance: lethargic EENT: normal ENT inspection Neck: normal alignment Cardiovascular: normal peripheral pulses, normal rate, regular rhythm Respiratory/Chest: chest wall non-tender, lungs clear, normal breath sounds Abdomen: normal bowel sounds, non tender, soft Extremities: normal inspection Edema: no edema noted Arm (L), no edema noted Arm (R), no edema noted Leg (L), no edema noted Leg (R), no edema noted Pedal (L), no edema noted Pedal (R), no edema noted Generalized Neurologic: responsive, motor weakness Skin: normal pigmentation, warm/dry Chemo Dietrich DO Aug 08, 2017 14:07
[2017-08-08] MEDS ORDERED: Morphine Sulfate 2mg/ml Inj IVP PRN (14:15)
[2017-08-08] MEDS: cefTRIAXone 1 GM in D5W 110 ML IVPB SCH (15:41)
[2017-08-08 16:00] VITALS: BP 112/58
--- NOTE | 2017-08-08 16:11 | Nephrology Progress Note ---
Assessment/Plan Problem List: (1) Hyponatremia (2) HIV (human immunodeficiency virus infection) (3) COPD (chronic obstructive pulmonary disease) (4) Hepatitis C (5) Drug abuse and dependence (6) Hypoalbuminemia Assessment Sever HypoNatremia HypoAlbuminemia HIV + Chronic Pain MultiDrug abuse: coccaine MJ Amphetamines Anemia COPD Hep C Plan po fluid restriction PRN Lasix monitor lytes K Mag Phos as needed Objective Objective Last 24 Hour Vital Signs Date Time Temp Pulse Resp B/P (MAP) Pulse Ox O2 Delivery O2 Flow Rate FiO2 08/08/17 14:04 98.1 98.1 08/08/17 13:26 98.1 08/08/17 12:27 101.8 08/08/17 12:26 101.8 101.8 08/08/17 12:00 101.5 91 18 131/57 96 Room Air 101.5 08/08/17 12:00 101.5 91 20 131/57 96 101.5 08/08/17 08:00 98.2 93 20 132/66 94 Room Air 98.2 08/08/17 04:33 98.1 08/08/17 04:03 98.1 08/08/17 04:00 94 Room Air 08/08/17 03:45 98.1 64 20 126/60 94 Room Air 98.1 08/08/17 00:00 94 Room Air 08/07/17 23:55 98.1 78 20 134/71 94 Room Air 98.1 08/07/17 23:35 98.8 08/07/17 20:12 94 Room Air 08/07/17 19:37 98.8 08/07/17 19:12 98.8 88 20 136/71 94 Room Air 98.8 Intake and Output 08/07/17 08/08/17 19:00 07:00 Intake Total 340.0 ml 455.0 ml Balance 340.0 ml 455.0 ml IV Total 340.0 ml 455.0 ml Laboratory Tests 08/08/17 05:20: White Blood Count [Pending], Red Blood Count 4.06L, Hemoglobin 12.6L, Hematocrit 34.9L, Mean Corpuscular Volume 86, Mean Corpuscular Hemoglobin 31.0, Mean Corpuscular Hemoglobin Concent 36.1H, Red Cell Distribution Width 11.1L, Platelet Count 145L, Mean Platelet Volume 8.0, Neutrophils (%) (Auto) , Lymphocytes (%) (Auto) , Monocytes (%) (Auto) , Eosinophils (%) (Auto) , Basophils (%) (Auto) , Differential Total Cells Counted 100, Neutrophils % ( Manual) 86H, Lymphocytes % (Manual) 6L, Monocytes % (Manual) 8, Eosinophils % ( Manual) 0, Basophils % (Manual) 0, Band Neutrophils 0, Lymphocytes [Pending], Platelet Estimate DecreasedL, Platelet Morphology Normal, Red Blood Cell Morphology Normal, Sodium Level 126L, Potassium Level 3.0L, Chloride Level 92L, Carbon Dioxide Level 24, Anion Gap 11, Blood Urea Nitrogen 7, Creatinine 0.8, Estimat Glomerular Filtration Rate > 60, Glucose Level 113H, Hemoglobin A1c 6.1H , Uric Acid 3.0, Calcium Level 8.1L, Phosphorus Level 1.8L, Magnesium Level 1.9 , Total Bilirubin 0.8, Gamma Glutamyl Transpeptidase 35, Aspartate Amino Transf (AST/SGOT) 21, Alanine Aminotransferase (ALT/SGPT) 24, Alkaline Phosphatase 117H , Pro-B-Type Natriuretic Peptide 635H, Total Protein 6.5, Albumin 2.1L, Globulin 4.4, Albumin/Globulin Ratio 0.5L, Triglycerides Level 70, Cholesterol Level 80, LDL Cholesterol 64, HDL Cholesterol 17L, Cholesterol/HDL Ratio 4.7H, Percent CD3 Cells [Pending], Absolute CD3 Count [Pending], Percent CD4 Cells [ Pending], Absolute CD4 Count [Pending], T-Lymphocyte CD4/CD8 Ratio [Pending], Percent CD8 Cells [Pending], Absolute CD8 Count [Pending], HIV-1 RNA (PCR) log10 Value [Pending], HIV-1 RNA Ultraquantitative (PCR) [Pending] Height (Feet): 5 Height (Inches): 8.00 Weight (Pounds): 160 JAMI KRISHNAMURTHY Aug 08, 2017 16:11
[2017-08-08] MEDS: Morphine Sulfate 4mg/ml Inj IVP PRN ×2 (16:33→21:36)
[2017-08-08] MEDS ORDERED: Vancomycin 1.5 GM/D5W 250ML IVPB ONE (17:00)
--- NOTE | 2017-08-08 19:12 | Infectious Diseases Prog Note ---
Assessment/Plan Assessment/Plan Abx: Cefepime x1 08/06 Levaquin x1 08/06 Assessment: SEpsis-2ry to Gram positive bacteremia and possible PNA- r/o endocarditis -Bcx 05/16 GPC clusters -CXR no acute disease Fever/leukocytosis, improving -u/a neg Constipation -CT abd/p w/: Small left pleural effusion and left basilar atelectasis and possibly some consolidation. No definite acute abdominal or pelvic process. No CT evidence of significant constipation. Colonic diverticulosis. No evidence of diverticulitis. Mildly hypoattenuating liver, consistent with fatty change. 5 mm fat attenuation nodule is seen within the left adrenal. Prominent prostate, with nonspecific hypoattenuation. Subcentimeter low-attenuation left renal lesion, too small to characterize, most likely benign simple cysts. No further follow-up necessary Polysubstance abuse- refers alst IVDA was ~7 yrs ago -UDS +THC, cocaine and amphetamines HIV - non progressor- per patient, never on Tx and CD4 >500 and UD VL Hep C s/p tx (20 years ago) with sustained virologic response COPD/asthma tobacco abuse (stopped smoking 3d [employer]) Plan: -Continue empiric Ceftriaxone abx d#3/5 for possible PNA and add IV Vancomycin for GPC bacteremia -repeat 2 sets of Bcx and obtain 2 de Echo -may need NURA -f/u sp cx, Bcx, Cd4, HIV VL -f/u cx -Monitor CBC/BMP, temperatures -aspiration precautions Thank you for this consultation. Will continue to follow along with you. Discussed with RN. Subjective Allergies: Coded Allergies: No Known Allergies (Unverified , 08/06/17) Subjective Tm 101.8 WBC increased high grade bacteremia GPC clusters UDS+ Objective Vital Signs Last 24 Hour Vital Signs Date Time Temp Pulse Resp B/P (MAP) Pulse Ox O2 Delivery O2 Flow Rate FiO2 08/08/17 16:00 97.2 84 18 112/58 92 Room Air 97.2 08/08/17 14:04 98.1 98.1 08/08/17 13:26 98.1 08/08/17 12:27 101.8 08/08/17 12:26 101.8 101.8 08/08/17 12:00 101.5 91 18 131/57 96 Room Air 101.5 08/08/17 12:00 101.5 91 20 131/57 96 101.5 08/08/17 08:00 98.2 93 20 132/66 94 Room Air 98.2 08/08/17 04:33 98.1 08/08/17 04:03 98.1 08/08/17 04:00 94 Room Air 08/08/17 03:45 98.1 64 20 126/60 94 Room Air 98.1 08/08/17 00:00 94 Room Air 08/07/17 23:55 98.1 78 20 134/71 94 Room Air 98.1 08/07/17 23:35 98.8 08/07/17 20:12 94 Room Air 08/07/17 19:37 98.8 08/07/17 19:12 98.8 88 20 136/71 94 Room Air 98.8 Height (Feet): 5 Height (Inches): 8.00 Weight (Pounds): 160 Objective General Appearance: WD/WN HEENT: atraumatic Respiratory/Chest: chest wall non-tender, lungs clear Cardiovascular: normal peripheral pulses, normal rate Abdomen: normal bowel sounds, soft, non tender Skin: no rash Microbiology Date/Time Source Procedure Growth Status 08/07/17 14:30 Blood Blood Culture - Preliminary Resulted 08/07/17 14:15 Blood Blood Culture - Preliminary Resulted 08/07/17 21:34 Sputum Induced Gram Stain - Final Resulted 08/07/17 21:34 Sputum Induced Sputum Culture Pending Resulted Laboratory Tests Test 08/08/17 05:20 White Blood Count Pending Red Blood Count 4.06 M/UL (4.70-6.10) L Hemoglobin 12.6 G/DL (14.2-18.0) L Hematocrit 34.9 % (42.0-52.0) L Mean Corpuscular Volume 86 FL (80-99) Mean Corpuscular Hemoglobin 31.0 PG (27.0-31.0) Mean Corpuscular Hemoglobin Concent 36.1 G/DL (32.0-36.0) H Red Cell Distribution Width 11.1 % (11.6-14.8) L Platelet Count 145 K/UL (150-450) L Mean Platelet Volume 8.0 FL (6.5-10.1) Neutrophils (%) (Auto) % (45.0-75.0) Lymphocytes (%) (Auto) % (20.0-45.0) Monocytes (%) (Auto) % (1.0-10.0) Eosinophils (%) (Auto) % (0.0-3.0) Basophils (%) (Auto) % (0.0-2.0) Differential Total Cells Counted 100 Neutrophils % (Manual) 86 % (45-75) H Lymphocytes % (Manual) 6 % (20-45) L Monocytes % (Manual) 8 % (1-10) Eosinophils % (Manual) 0 % (0-3) Basophils % (Manual) 0 % (0-2) Band Neutrophils 0 % (0-8) Lymphocytes Pending Platelet Estimate Decreased L Platelet Morphology Normal Red Blood Cell Morphology Normal Sodium Level 126 MMOL/L (136-145) L Potassium Level 3.0 MMOL/L (3.5-5.1) L Chloride Level 92 MMOL/L (98-107) L Carbon Dioxide Level 24 MMOL/L (21-32) Anion Gap 11 mmol/L (5-15) Blood Urea Nitrogen 7 mg/dL (7-18) Creatinine 0.8 MG/DL (0.55-1.30) Estimat Glomerular Filtration Rate > 60 mL/min (>60) Glucose Level 113 MG/DL (74-106) H Hemoglobin A1c 6.1 % (4.3-6.0) H Uric Acid 3.0 MG/DL (2.6-7.2) Calcium Level 8.1 MG/DL (8.5-10.1) L Phosphorus Level 1.8 MG/DL (2.5-4.9) L Magnesium Level 1.9 MG/DL (1.8-2.4) Total Bilirubin 0.8 MG/DL (0.2-1.0) Gamma Glutamyl Transpeptidase 35 U/L (5-85) Aspartate Amino Transf (AST/SGOT) 21 U/L (15-37) Alanine Aminotransferase (ALT/SGPT) 24 U/L (12-78) Alkaline Phosphatase 117 U/L (46-116) H C-Reactive Protein, Quantitative > 70.0 mg/dL (0.00-0.90) H Pro-B-Type Natriuretic Peptide 635 pg/mL (0-125) H Total Protein 6.5 G/DL (6.4-8.2) Albumin 2.1 G/DL (3.4-5.0) L Globulin 4.4 g/dL Albumin/Globulin Ratio 0.5 (1.0-2.7) L Triglycerides Level 70 MG/DL (30-150) Cholesterol Level 80 MG/DL (< 200) LDL Cholesterol 64 mg/dL (<100) HDL Cholesterol 17 MG/DL (40-60) L Cholesterol/HDL Ratio 4.7 (3.3-4.4) H Percent CD3 Cells Pending Absolute CD3 Count Pending Percent CD4 Cells Pending Absolute CD4 Count Pending T-Lymphocyte CD4/CD8 Ratio Pending Percent CD8 Cells Pending Absolute CD8 Count Pending HIV-1 RNA (PCR) log10 Value Pending HIV-1 RNA Ultraquantitative (PCR) Pending Current Medications Medications (Trade) Dose Ordered Sig/Veronica Route PRN Reason Start Time Stop Time Status Last Admin Dose Admin Acetaminophen (Tylenol) 650 mg Q4H PRN ORAL fever 08/06/17 14:15 09/05/17 14:14 08/08/17 12:27 Ceftriaxone Sodium 1 gm/ Dextrose 110 ml @ 220 mls/hr Q24H IVPB 08/07/17 16:00 08/14/17 15:59 08/08/17 15:41 Dextrose (Dextrose 50%) 25 ml STAT PRN IV Hypoglycemia 08/06/17 14:15 09/05/17 14:14 Dextrose (Dextrose 50%) 50 ml STAT PRN IV Hypoglycemia 08/06/17 15:15 09/05/17 15:14 Diphenhydramine HCl (Benadryl) 25 mg Q6H PRN ORAL Itching/Pruritis 08/06/17 14:15 09/05/17 14:14 Docusate Sodium (Colace) 100 mg TWICE A DAY ORAL 08/06/17 18:00 09/05/17 17:59 08/07/17 17:56 Heparin Sodium (Porcine) (Heparin 5000 units/ml) 5,000 units EVERY 12 HOURS SUBQ 08/06/17 21:00 09/05/17 20:59 Lansoprazole (Prevacid) 30 mg DAILY ORAL 08/08/17 09:00 09/07/17 08:59 08/08/17 08:04 Lorazepam (Ativan 2mg/ml 1ml) 1 mg Q4H PRN IV agitation 08/06/17 14:15 08/13/17 14:14 08/08/17 12:55 Metoclopramide HCl (Reglan) 10 mg Q6H PRN IVP REFRACTORY N/V 08/06/17 14:15 09/05/17 14:14 Morphine Sulfate (Morphine Sulfate) 2 mg Q4H PRN IVP Moderate Pain (Pain Scale 4-6) 08/08/17 14:15 08/13/17 14:14 Morphine Sulfate (Morphine Sulfate) 4 mg Q4H PRN IVP Severe Pain (Pain Scale 7-10) 08/08/17 13:30 08/15/17 13:29 08/08/17 16:33 Nitroglycerin (Ntg) 0.4 mg Q5M X 3 DOSES PRN SL Prn Chest Pain 08/06/17 14:15 09/05/17 14:14 Polyethylene Glycol (Miralax) 17 gm BEDTIME ORAL 08/06/17 21:00 09/05/17 20:59 08/06/17 21:43 Temazepam (Restoril) 15 mg HSPRN PRN ORAL Insomnia 08/06/17 21:00 08/13/17 20:59 08/07/17 22:30 Vancomycin HCl (Vanco rx to dose) 1 ea DAILY PRN MISC PER RX PROTOCOL 08/08/17 15:15 09/07/17 15:14 Vancomycin HCl/ Dextrose 250 ml @ 166.667 mls/hr Q12HR@0500,1700 IVPB 08/09/17 05:00 08/14/17 04:59 Steph Crowder M.D. Aug 08, 2017 19:12
[2017-08-08 19:15] VITALS: BP_SYST 137; BP_SYST 94; BP_DIAS 44; BP_DIAS 73
[2017-08-08] MEDS: Miralax 17gm pkt ORAL SCH (20:45)
[2017-08-09 00:09] VITALS: BP 141/77
[2017-08-09] MEDS: Vancomycin 1250mg/D5W 250ml IVPB SCH ×2 (03:52→18:43)
[2017-08-09] MEDS: Morphine Sulfate 4mg/ml Inj IVP PRN ×4 (03:53→22:15)
[2017-08-09 03:55] VITALS: BP 123/68
[2017-08-09 07:31] LABS: BASOPHILS % (AUTO) 0.5 % (0.0-2.0); EOSINOPHILS % (AUTO) 0.3 % (0.0-3.0); HEMATOCRIT 34.2 % (42.0-52.0); HEMOGLOBIN 12.2 G/DL (14.2-18.0); LYMPHOCYTES % (AUTO) 8.3 % (20.0-45.0); MEAN CORPUSCULAR VOLUME 86 FL (80-99); NEUTROPHILS % (AUTO) 83.9 % (45.0-75.0); PLATELET COUNT 172 K/UL (150-450); RED BLOOD COUNT 3.98 M/UL (4.70-6.10); RED CELL DISTRIBUTION WIDTH 11.2 % (11.6-14.8); WHITE BLOOD COUNT 14.7 K/UL (4.8-10.8)
[2017-08-09 07:51] LABS: ALANINE AMINOTRANSFERASE 30 U/L (12-78); ALBUMIN 1.9 G/DL (3.4-5.0); ALKALINE PHOSPHATASE 86 U/L (46-116); ASPARTATE AMINO TRANSFERASE 26 U/L (15-37); BILIRUBIN,DIRECT 0.3 MG/DL (0.0-0.3); BILIRUBIN,TOTAL 0.6 MG/DL (0.2-1.0); CREATINE KINASE 52 U/L (26-308); GAMMA GLUTAMYL TRANSPEPTIDASE 30 U/L (5-85)
[2017-08-09] MEDS: Docusate 100mg cap ORAL SCH ×2 (08:01→18:43)
[2017-08-09 08:54] LABS: ANION GAP 12 mmol/L (5-15); BLOOD UREA NITROGEN 11 mg/dL (7-18); CALCIUM 7.7 MG/DL (8.5-10.1); CARBON DIOXIDE 23 MMOL/L (21-32); CHLORIDE 95 MMOL/L (98-107); CREATININE 0.7 MG/DL (0.55-1.30); PHOSPHORUS 2.6 MG/DL (2.5-4.9); POTASSIUM 3.5 MMOL/L (3.5-5.1); SODIUM 130 MMOL/L (136-145)
[2017-08-09] MEDS: Heparin 5000 units/ml inj SUBQ SCH ×2 (08:57→22:16)
[2017-08-09 09:39] VITALS: BP 127/68
--- NOTE | 2017-08-09 10:21 | Nephrology Progress Note ---
Assessment/Plan Problem List: (1) Hyponatremia (2) HIV (human immunodeficiency virus infection) (3) COPD (chronic obstructive pulmonary disease) (4) Hepatitis C (5) Drug abuse and dependence (6) Hypoalbuminemia Assessment Sever HypoNatremia- na up to 130 HypoAlbuminemia HIV + Chronic Pain MultiDrug abuse: coccaine MJ Amphetamines Anemia COPD Hep C Plan po fluid restriction PRN Lasix monitor lytes K Mag Phos as needed DC planning? Subjective ROS Limited/Unobtainable: No Constitutional: Reports: malaise, weakness Objective Objective Last 24 Hour Vital Signs Date Time Temp Pulse Resp B/P (MAP) Pulse Ox O2 Delivery O2 Flow Rate FiO2 08/09/17 09:39 100.8 90 18 127/68 91 Room Air 100.8 08/09/17 08:04 99.7 08/09/17 04:29 99.7 08/09/17 04:00 92 Room Air 08/09/17 03:55 99.7 91 20 123/68 92 Room Air 99.7 08/09/17 03:53 97.7 08/09/17 00:09 97.7 92 20 141/77 93 Room Air 97.7 08/09/17 00:09 93 Room Air 08/08/17 21:36 97.5 08/08/17 19:15 92 Room Air 08/08/17 19:15 97.5 81 20 137/73 92 Room Air 97.5 08/08/17 16:00 97.2 84 18 112/58 92 Room Air 97.2 08/08/17 14:04 98.1 98.1 08/08/17 13:26 98.1 08/08/17 12:27 101.8 08/08/17 12:26 101.8 101.8 08/08/17 12:00 101.5 91 18 131/57 96 Room Air 101.5 08/08/17 12:00 101.5 91 20 131/57 96 101.5 Intake and Output 08/08/17 08/09/17 19:00 07:00 Intake Total 1170.0 ml 250.000 ml Output Total 800 ml Balance 1170.0 ml -550.000 ml Intake Oral 600 ml IV Total 570.0 ml 250.000 ml Output Urine Total 800 ml # Voids 3 4 # Bowel Movements 1 1 Laboratory Tests 08/09/17 07:05: White Blood Count 14.7H, Red Blood Count 3.98L, Hemoglobin 12.2L, Hematocrit 34.2L, Mean Corpuscular Volume 86, Mean Corpuscular Hemoglobin 30.7, Mean Corpuscular Hemoglobin Concent 35.7, Red Cell Distribution Width 11.2L, Platelet Count 172, Mean Platelet Volume 7.4, Neutrophils (%) (Auto) 83.9H, Lymphocytes (%) (Auto) 8.3L, Monocytes (%) (Auto) 7.0, Eosinophils (%) (Auto) 0.3, Basophils (%) (Auto) 0.5, Sodium Level 130L, Potassium Level 3.5, Chloride Level 95L, Carbon Dioxide Level 23, Anion Gap 12, Blood Urea Nitrogen 11, Creatinine 0.7, Estimat Glomerular Filtration Rate > 60, Glucose Level 112H, Uric Acid 3.7, Calcium Level 7.7L, Phosphorus Level 2.6, Magnesium Level 2.0, Total Bilirubin 0.6, Direct Bilirubin 0.3, Gamma Glutamyl Transpeptidase 30, Aspartate Amino Transf (AST/SGOT) 26, Alanine Aminotransferase (ALT/SGPT) 30, Alkaline Phosphatase 86, Total Creatine Kinase 52, Pro-B-Type Natriuretic Peptide 683H, Total Protein 6.5, Albumin 1.9L Height (Feet): 5 Height (Inches): 8.00 Weight (Pounds): 160 General Appearance: no apparent distress Objective no change JAMI KRISHNAMURTHY Aug 09, 2017 10:21
--- NOTE | 2017-08-09 10:23 | GI Progress Note ---
Assessment/Plan Problems: (1) Polysubstance (excluding opioids) dependence ICD Codes: F19.20 - Other psychoactive substance dependence, uncomplicated SNOMED: 72698811 (2) Hepatitis C ICD Codes: B19.20 - Unspecified viral hepatitis C without hepatic coma SNOMED: 99819999 (3) Constipated ICD Codes: K59.00 - Constipation, unspecified SNOMED: 67108334 (4) Hyponatremia ICD Codes: E87.1 - Hypo-osmolality and hyponatremia SNOMED: 14196099 (5) HIV (human immunodeficiency virus infection) ICD Codes: B20 - Human immunodeficiency virus [HIV] disease SNOMED: 86445407 (6) Abdominal pain ICD Codes: R10.9 - Unspecified abdominal pain SNOMED: 86358590 Qualifiers: Qualified Codes: R10.32 - Left lower quadrant pain Status: stable Status Narrative Discussed with Dr. Lee. Assessment/Plan CT reviewed >> - Small left pleural effusion and left basilar atelectasis and possibly some consolidation - No definite acute abdominal or pelvic process - No CT evidence of significant constipation - Colonic diverticulosis. No evidence of diverticulitis - Mildly hypoattenuating liver, consistent with fatty change - prominent prostate, with nonspecific hypoattenuation HIV positive hep C antibody positive Utox positive for cocaine, MJ, amphetamines OB negative regular diet monitor H&H, prn transfusions bowel regime ppi fu labs outpatient GI procedures Subjective Subjective thirsty Objective Last 24 Hour Vital Signs Date Time Temp Pulse Resp B/P (MAP) Pulse Ox O2 Delivery O2 Flow Rate FiO2 08/09/17 09:39 100.8 90 18 127/68 91 Room Air 100.8 08/09/17 08:04 99.7 08/09/17 04:29 99.7 08/09/17 04:00 92 Room Air 08/09/17 03:55 99.7 91 20 123/68 92 Room Air 99.7 08/09/17 03:53 97.7 08/09/17 00:09 97.7 92 20 141/77 93 Room Air 97.7 08/09/17 00:09 93 Room Air 08/08/17 21:36 97.5 08/08/17 19:15 92 Room Air 08/08/17 19:15 97.5 81 20 137/73 92 Room Air 97.5 08/08/17 16:00 97.2 84 18 112/58 92 Room Air 97.2 08/08/17 14:04 98.1 98.1 08/08/17 13:26 98.1 08/08/17 12:27 101.8 08/08/17 12:26 101.8 101.8 08/08/17 12:00 101.5 91 18 131/57 96 Room Air 101.5 08/08/17 12:00 101.5 91 20 131/57 96 101.5 Intake and Output 08/08/17 08/09/17 19:00 07:00 Intake Total 1170.0 ml 250.000 ml Output Total 800 ml Balance 1170.0 ml -550.000 ml Intake Oral 600 ml IV Total 570.0 ml 250.000 ml Output Urine Total 800 ml # Voids 3 4 # Bowel Movements 1 1 Laboratory Tests Test 08/09/17 07:05 White Blood Count 14.7 K/UL (4.8-10.8) H Red Blood Count 3.98 M/UL (4.70-6.10) L Hemoglobin 12.2 G/DL (14.2-18.0) L Hematocrit 34.2 % (42.0-52.0) L Mean Corpuscular Volume 86 FL (80-99) Mean Corpuscular Hemoglobin 30.7 PG (27.0-31.0) Mean Corpuscular Hemoglobin Concent 35.7 G/DL (32.0-36.0) Red Cell Distribution Width 11.2 % (11.6-14.8) L Platelet Count 172 K/UL (150-450) Mean Platelet Volume 7.4 FL (6.5-10.1) Neutrophils (%) (Auto) 83.9 % (45.0-75.0) H Lymphocytes (%) (Auto) 8.3 % (20.0-45.0) L Monocytes (%) (Auto) 7.0 % (1.0-10.0) Eosinophils (%) (Auto) 0.3 % (0.0-3.0) Basophils (%) (Auto) 0.5 % (0.0-2.0) Sodium Level 130 MMOL/L (136-145) L Potassium Level 3.5 MMOL/L (3.5-5.1) Chloride Level 95 MMOL/L (98-107) L Carbon Dioxide Level 23 MMOL/L (21-32) Anion Gap 12 mmol/L (5-15) Blood Urea Nitrogen 11 mg/dL (7-18) Creatinine 0.7 MG/DL (0.55-1.30) Estimat Glomerular Filtration Rate > 60 mL/min (>60) Glucose Level 112 MG/DL (74-106) H Uric Acid 3.7 MG/DL (2.6-7.2) Calcium Level 7.7 MG/DL (8.5-10.1) L Phosphorus Level 2.6 MG/DL (2.5-4.9) Magnesium Level 2.0 MG/DL (1.8-2.4) Total Bilirubin 0.6 MG/DL (0.2-1.0) Direct Bilirubin 0.3 MG/DL (0.0-0.3) Gamma Glutamyl Transpeptidase 30 U/L (5-85) Aspartate Amino Transf (AST/SGOT) 26 U/L (15-37) Alanine Aminotransferase (ALT/SGPT) 30 U/L (12-78) Alkaline Phosphatase 86 U/L (46-116) Total Creatine Kinase 52 U/L (26-308) Pro-B-Type Natriuretic Peptide 683 pg/mL (0-125) H Total Protein 6.5 G/DL (6.4-8.2) Albumin 1.9 G/DL (3.4-5.0) L Height (Feet): 5 Height (Inches): 8.00 Weight (Pounds): 160 General Appearance: WD/WN, no apparent distress, alert Cardiovascular: normal rate Respiratory/Chest: normal breath sounds, no respiratory distress Abdominal Exam: normal bowel sounds, non tender, soft Extremities: normal range of motion, non-tender Rupinder Armstrong NP Aug 09, 2017 10:23
[2017-08-09 12:00] VITALS: BP 132/70
--- NOTE | 2017-08-09 12:34 | Pulmonology Progress Note ---
Assessment/Plan Problems: (1) Abdominal pain (2) Constipation (3) Hyponatremia (4) COPD (chronic obstructive pulmonary disease) (5) Hepatitis C (6) HIV (human immunodeficiency virus infection) Assessment/Plan BC positive for GPC , stap aureaus laxative, GI evaluation appreciated respiratory treatment Hyponatremia w/u HIV studies, Hep C positive titrate fio2 to sat of 92% ID evaluation appreciated pt/ot, pt has a walker. Subjective ROS Limited/Unobtainable: No Interval Events: c/o pain Constitutional: Reports: no symptoms HEENT: Repors: no symptoms Allergies: Coded Allergies: No Known Allergies (Unverified , 08/06/17) Objective Last 24 Hour Vital Signs Date Time Temp Pulse Resp B/P (MAP) Pulse Ox O2 Delivery O2 Flow Rate FiO2 08/09/17 11:09 100.8 08/09/17 09:39 100.8 90 18 127/68 91 Room Air 100.8 08/09/17 08:04 99.7 08/09/17 04:29 99.7 08/09/17 04:00 92 Room Air 08/09/17 03:55 99.7 91 20 123/68 92 Room Air 99.7 08/09/17 03:53 97.7 08/09/17 00:09 97.7 92 20 141/77 93 Room Air 97.7 08/09/17 00:09 93 Room Air 08/08/17 21:36 97.5 08/08/17 19:15 92 Room Air 08/08/17 19:15 97.5 81 20 137/73 92 Room Air 97.5 08/08/17 16:00 97.2 84 18 112/58 92 Room Air 97.2 08/08/17 14:04 98.1 98.1 08/08/17 13:26 98.1 Intake and Output 08/08/17 08/09/17 19:00 07:00 Intake Total 1170.0 ml 250.000 ml Output Total 800 ml Balance 1170.0 ml -550.000 ml Intake Oral 600 ml IV Total 570.0 ml 250.000 ml Output Urine Total 800 ml # Voids 3 4 # Bowel Movements 1 1 General Appearance: WD/WN HEENT: normocephalic, atraumatic Respiratory/Chest: chest wall non-tender, lungs clear Cardiovascular: normal peripheral pulses, normal rate Abdomen: normal bowel sounds, no organomegaly Genitourinary: normal external genitalia Extremities: no cyanosis Skin: no lesions, no ulcers Neurologic/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: 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 grossly normal Microbiology Date/Time Source Procedure Growth Status 08/07/17 14:30 Blood Blood Culture - Preliminary Staphylococcus Aureus Resulted 08/07/17 14:15 Blood Blood Culture - Preliminary Staphylococcus Aureus Resulted 08/07/17 21:34 Sputum Induced Gram Stain - Final Resulted 08/07/17 21:34 Sputum Induced Sputum Culture - Preliminary NO GROWTH AFTER 24 HOURS Resulted Laboratory Tests 08/09/17 07:00: C-Reactive Protein, Quantitative 27.0H 08/09/17 07:05: White Blood Count 14.7H, Red Blood Count 3.98L, Hemoglobin 12.2L, Hematocrit 34.2L, Mean Corpuscular Volume 86, Mean Corpuscular Hemoglobin 30.7, Mean Corpuscular Hemoglobin Concent 35.7, Red Cell Distribution Width 11.2L, Platelet Count 172, Mean Platelet Volume 7.4, Neutrophils (%) (Auto) 83.9H, Lymphocytes (%) (Auto) 8.3L, Monocytes (%) (Auto) 7.0, Eosinophils (%) (Auto) 0.3, Basophils (%) (Auto) 0.5, Sodium Level 130L, Potassium Level 3.5, Chloride Level 95L, Carbon Dioxide Level 23, Anion Gap 12, Blood Urea Nitrogen 11, Creatinine 0.7, Estimat Glomerular Filtration Rate > 60, Glucose Level 112H, Uric Acid 3.7, Calcium Level 7.7L, Phosphorus Level 2.6, Magnesium Level 2.0, Total Bilirubin 0.6, Direct Bilirubin 0.3, Gamma Glutamyl Transpeptidase 30, Aspartate Amino Transf (AST/SGOT) 26, Alanine Aminotransferase (ALT/SGPT) 30, Alkaline Phosphatase 86, Total Creatine Kinase 52, Pro-B-Type Natriuretic Peptide 683H, Total Protein 6.5, Albumin 1.9L Current Medications Medications (Trade) Dose Ordered Sig/Veronica Route PRN Reason Start Time Stop Time Status Last Admin Dose Admin Acetaminophen (Tylenol) 650 mg Q4H PRN ORAL fever 08/06/17 14:15 09/05/17 14:14 08/09/17 11:09 Ceftriaxone Sodium 1 gm/ Dextrose 110 ml @ 220 mls/hr Q24H IVPB 08/07/17 16:00 08/14/17 15:59 08/08/17 15:41 Docusate Sodium (Colace) 100 mg TWICE A DAY ORAL 08/06/17 18:00 09/05/17 17:59 08/09/17 08:01 Heparin Sodium (Porcine) (Heparin 5000 units/ml) 5,000 units EVERY 12 HOURS SUBQ 08/06/17 21:00 09/05/17 20:59 Lansoprazole (Prevacid) 30 mg DAILY ORAL 08/10/17 09:00 09/09/17 08:59 Lorazepam (Ativan 2mg/ml 1ml) 1 mg Q4H PRN IV agitation 08/06/17 14:15 08/13/17 14:14 08/08/17 12:55 Metoclopramide HCl (Reglan) 10 mg Q6H PRN IVP REFRACTORY N/V 08/06/17 14:15 09/05/17 14:14 Morphine Sulfate (Morphine Sulfate) 2 mg Q4H PRN IVP Moderate Pain (Pain Scale 4-6) 08/08/17 14:15 08/13/17 14:14 Morphine Sulfate (Morphine Sulfate) 4 mg Q4H PRN IVP Severe Pain (Pain Scale 7-10) 08/08/17 13:30 08/15/17 13:29 08/09/17 08:04 Nitroglycerin (Ntg) 0.4 mg Q5M X 3 DOSES PRN SL Prn Chest Pain 08/06/17 14:15 09/05/17 14:14 Polyethylene Glycol (Miralax) 17 gm BEDTIME ORAL 08/06/17 21:00 09/05/17 20:59 08/06/17 21:43 Potassium Chloride (K-Dur) 20 meq DAILY ORAL 08/10/17 09:00 09/09/17 08:59 Temazepam (Restoril) 15 mg HSPRN PRN ORAL Insomnia 08/06/17 21:00 08/13/17 20:59 08/07/17 22:30 Vancomycin HCl (Vanco rx to dose) 1 ea DAILY PRN MISC PER RX PROTOCOL 08/08/17 15:15 09/07/17 15:14 Vancomycin HCl/ Dextrose 250 ml @ 166.667 mls/hr Q12HR@0500,1700 IVPB 08/09/17 05:00 08/14/17 04:59 08/09/17 03:52 Sally Cox MD Aug 09, 2017 12:34
--- NOTE | 2017-08-09 13:48 | Infectious Diseases Prog Note ---
Assessment/Plan Assessment/Plan Abx: Cefepime x1 08/06 Levaquin x1 08/06 Assessment: SEpsis-2ry to S. aureus bacteremia and possible endocarditis; possible PNA -Bcx 05/16 S. aureus; repeat pending -CXR no acute disease -sp cx NTD Fever/leukocytosis, fever improving; leukocytosis persistent -u/a neg Constipation -CT abd/p w/: Small left pleural effusion and left basilar atelectasis and possibly some consolidation. No definite acute abdominal or pelvic process. No CT evidence of significant constipation. Colonic diverticulosis. No evidence of diverticulitis. Mildly hypoattenuating liver, consistent with fatty change. 5 mm fat attenuation nodule is seen within the left adrenal. Prominent prostate, with nonspecific hypoattenuation. Subcentimeter low-attenuation left renal lesion, too small to characterize, most likely benign simple cysts. 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 aureus sensi -f/u repeat Bcx, 2D Echo -NURA and cards to eval for endocarditis -f/u sp cx, HIV VL -f/u cx -Monitor CBC/BMP, temperatures -aspiration precautions Thank you for this consultation. Will continue to follow along with you. Discussed with RN, Dr Dietrich and Dr Victoria. Subjective Allergies: Coded Allergies: No Known Allergies (Unverified , 08/06/17) Subjective Tm 101.8 WBC increased high grade bacteremia GPC clusters UDS+ Objective Vital Signs Last 24 Hour Vital Signs Date Time Temp Pulse Resp B/P (MAP) Pulse Ox O2 Delivery O2 Flow Rate FiO2 08/09/17 11:09 100.8 08/09/17 09:39 100.8 90 18 127/68 91 Room Air 100.8 08/09/17 08:04 99.7 08/09/17 04:29 99.7 08/09/17 04:00 92 Room Air 08/09/17 03:55 99.7 91 20 123/68 92 Room Air 99.7 08/09/17 03:53 97.7 08/09/17 00:09 97.7 92 20 141/77 93 Room Air 97.7 08/09/17 00:09 93 Room Air 08/08/17 21:36 97.5 08/08/17 19:15 92 Room Air 08/08/17 19:15 97.5 81 20 137/73 92 Room Air 97.5 08/08/17 16:00 97.2 84 18 112/58 92 Room Air 97.2 08/08/17 14:04 98.1 98.1 Height (Feet): 5 Height (Inches): 8.00 Weight (Pounds): 160 Objective General Appearance: WD/WN HEENT: atraumatic Respiratory/Chest: chest wall non-tender, lungs clear Cardiovascular: normal peripheral pulses, normal rate Abdomen: normal bowel sounds, soft, non tender Skin: no rash Microbiology Date/Time Source Procedure Growth Status 08/07/17 14:30 Blood Blood Culture - Preliminary Staphylococcus Aureus Resulted 08/07/17 14:15 Blood Blood Culture - Preliminary Staphylococcus Aureus Resulted 08/07/17 21:34 Sputum Induced Gram Stain - Final Resulted 08/07/17 21:34 Sputum Induced Sputum Culture - Preliminary NO GROWTH AFTER 24 HOURS Resulted Laboratory Tests Test 08/09/17 07:00 08/09/17 07:05 C-Reactive Protein, Quantitative 27.0 mg/dL (0.00-0.90) H White Blood Count 14.7 K/UL (4.8-10.8) H Red Blood Count 3.98 M/UL (4.70-6.10) L Hemoglobin 12.2 G/DL (14.2-18.0) L Hematocrit 34.2 % (42.0-52.0) L Mean Corpuscular Volume 86 FL (80-99) Mean Corpuscular Hemoglobin 30.7 PG (27.0-31.0) Mean Corpuscular Hemoglobin Concent 35.7 G/DL (32.0-36.0) Red Cell Distribution Width 11.2 % (11.6-14.8) L Platelet Count 172 K/UL (150-450) Mean Platelet Volume 7.4 FL (6.5-10.1) Neutrophils (%) (Auto) 83.9 % (45.0-75.0) H Lymphocytes (%) (Auto) 8.3 % (20.0-45.0) L Monocytes (%) (Auto) 7.0 % (1.0-10.0) Eosinophils (%) (Auto) 0.3 % (0.0-3.0) Basophils (%) (Auto) 0.5 % (0.0-2.0) Sodium Level 130 MMOL/L (136-145) L Potassium Level 3.5 MMOL/L (3.5-5.1) Chloride Level 95 MMOL/L (98-107) L Carbon Dioxide Level 23 MMOL/L (21-32) Anion Gap 12 mmol/L (5-15) Blood Urea Nitrogen 11 mg/dL (7-18) Creatinine 0.7 MG/DL (0.55-1.30) Estimat Glomerular Filtration Rate > 60 mL/min (>60) Glucose Level 112 MG/DL (74-106) H Uric Acid 3.7 MG/DL (2.6-7.2) Calcium Level 7.7 MG/DL (8.5-10.1) L Phosphorus Level 2.6 MG/DL (2.5-4.9) Magnesium Level 2.0 MG/DL (1.8-2.4) Total Bilirubin 0.6 MG/DL (0.2-1.0) Direct Bilirubin 0.3 MG/DL (0.0-0.3) Gamma Glutamyl Transpeptidase 30 U/L (5-85) Aspartate Amino Transf (AST/SGOT) 26 U/L (15-37) Alanine Aminotransferase (ALT/SGPT) 30 U/L (12-78) Alkaline Phosphatase 86 U/L (46-116) Total Creatine Kinase 52 U/L (26-308) Pro-B-Type Natriuretic Peptide 683 pg/mL (0-125) H Total Protein 6.5 G/DL (6.4-8.2) Albumin 1.9 G/DL (3.4-5.0) L Current Medications Medications (Trade) Dose Ordered Sig/Veronica Route PRN Reason Start Time Stop Time Status Last Admin Dose Admin Acetaminophen (Tylenol) 650 mg Q4H PRN ORAL fever 08/06/17 14:15 09/05/17 14:14 08/09/17 11:09 Ceftriaxone Sodium 1 gm/ Dextrose 110 ml @ 220 mls/hr Q24H IVPB 08/07/17 16:00 08/14/17 15:59 08/08/17 15:41 Docusate Sodium (Colace) 100 mg TWICE A DAY ORAL 08/06/17 18:00 09/05/17 17:59 08/09/17 08:01 Heparin Sodium (Porcine) (Heparin 5000 units/ml) 5,000 units EVERY 12 HOURS SUBQ 08/06/17 21:00 09/05/17 20:59 Lansoprazole (Prevacid) 30 mg DAILY ORAL 08/10/17 09:00 09/09/17 08:59 Lorazepam (Ativan 2mg/ml 1ml) 1 mg Q4H PRN IV agitation 08/06/17 14:15 08/13/17 14:14 08/08/17 12:55 Metoclopramide HCl (Reglan) 10 mg Q6H PRN IVP REFRACTORY N/V 08/06/17 14:15 09/05/17 14:14 Morphine Sulfate (Morphine Sulfate) 2 mg Q4H PRN IVP Moderate Pain (Pain Scale 4-6) 08/08/17 14:15 08/13/17 14:14 Morphine Sulfate (Morphine Sulfate) 4 mg Q4H PRN IVP Severe Pain (Pain Scale 7-10) 08/08/17 13:30 08/15/17 13:29 08/09/17 08:04 Nitroglycerin (Ntg) 0.4 mg Q5M X 3 DOSES PRN SL Prn Chest Pain 08/06/17 14:15 09/05/17 14:14 Polyethylene Glycol (Miralax) 17 gm BEDTIME ORAL 08/06/17 21:00 09/05/17 20:59 08/06/17 21:43 Potassium Chloride (K-Dur) 20 meq DAILY ORAL 08/10/17 09:00 09/09/17 08:59 Temazepam (Restoril) 15 mg HSPRN PRN ORAL Insomnia 08/06/17 21:00 08/13/17 20:59 08/07/17 22:30 Vancomycin HCl (Vanco rx to dose) 1 ea DAILY PRN MISC PER RX PROTOCOL 08/08/17 15:15 09/07/17 15:14 Vancomycin HCl/ Dextrose 250 ml @ 166.667 mls/hr Q12HR@0500,1700 IVPB 08/09/17 05:00 08/14/17 04:59 08/09/17 03:52 Steph Crowder M.D. Aug 09, 2017 13:48
--- NOTE | 2017-08-09 14:34 | General Progress Note ---
Assessment/Plan Problem List: (1) Hepatitis C ICD Codes: B19.20 - Unspecified viral hepatitis C without hepatic coma SNOMED: 06182435 (2) Constipation ICD Codes: K59.00 - Constipation, unspecified SNOMED: 67615867 Qualifiers: Qualified Codes: K59.00 - Constipation, unspecified (3) Hyponatremia ICD Codes: E87.1 - Hypo-osmolality and hyponatremia SNOMED: 95416184 (4) Abdominal pain ICD Codes: R10.9 - Unspecified abdominal pain SNOMED: 73599878 Qualifiers: Qualified Codes: R10.32 - Left lower quadrant pain (5) HIV (human immunodeficiency virus infection) ICD Codes: B20 - Human immunodeficiency virus [HIV] disease SNOMED: 11047074 (6) Polysubstance (excluding opioids) dependence ICD Codes: F19.20 - Other psychoactive substance dependence, uncomplicated SNOMED: 47935968 Status: stable, progressing Assessment/Plan ot pt deit ivf goi neph f/u cbc bmp am cardio eval for zoila Subjective Allergies: Coded Allergies: No Known Allergies (Unverified , 08/06/17) All Systems: reviewed and negative except above Subjective bed sleepy calm Objective Last 24 Hour Vital Signs Date Time Temp Pulse Resp B/P (MAP) Pulse Ox O2 Delivery O2 Flow Rate FiO2 08/09/17 11:09 100.8 08/09/17 09:39 100.8 90 18 127/68 91 Room Air 100.8 08/09/17 08:04 99.7 08/09/17 04:29 99.7 08/09/17 04:00 92 Room Air 08/09/17 03:55 99.7 91 20 123/68 92 Room Air 99.7 08/09/17 03:53 97.7 08/09/17 00:09 97.7 92 20 141/77 93 Room Air 97.7 08/09/17 00:09 93 Room Air 08/08/17 21:36 97.5 08/08/17 19:15 92 Room Air 08/08/17 19:15 97.5 81 20 137/73 92 Room Air 97.5 08/08/17 16:00 97.2 84 18 112/58 92 Room Air 97.2 Intake and Output 08/08/17 08/09/17 19:00 07:00 Intake Total 1170.0 ml 250.000 ml Output Total 800 ml Balance 1170.0 ml -550.000 ml Intake Oral 600 ml IV Total 570.0 ml 250.000 ml Output Urine Total 800 ml # Voids 3 4 # Bowel Movements 1 1 Laboratory Tests 08/09/17 07:00: C-Reactive Protein, Quantitative 27.0H 08/09/17 07:05: White Blood Count 14.7H, Red Blood Count 3.98L, Hemoglobin 12.2L, Hematocrit 34.2L, Mean Corpuscular Volume 86, Mean Corpuscular Hemoglobin 30.7, Mean Corpuscular Hemoglobin Concent 35.7, Red Cell Distribution Width 11.2L, Platelet Count 172, Mean Platelet Volume 7.4, Neutrophils (%) (Auto) 83.9H, Lymphocytes (%) (Auto) 8.3L, Monocytes (%) (Auto) 7.0, Eosinophils (%) (Auto) 0.3, Basophils (%) (Auto) 0.5, Sodium Level 130L, Potassium Level 3.5, Chloride Level 95L, Carbon Dioxide Level 23, Anion Gap 12, Blood Urea Nitrogen 11, Creatinine 0.7, Estimat Glomerular Filtration Rate > 60, Glucose Level 112H, Uric Acid 3.7, Calcium Level 7.7L, Phosphorus Level 2.6, Magnesium Level 2.0, Total Bilirubin 0.6, Direct Bilirubin 0.3, Gamma Glutamyl Transpeptidase 30, Aspartate Amino Transf (AST/SGOT) 26, Alanine Aminotransferase (ALT/SGPT) 30, Alkaline Phosphatase 86, Total Creatine Kinase 52, Pro-B-Type Natriuretic Peptide 683H, Total Protein 6.5, Albumin 1.9L Height (Feet): 5 Height (Inches): 8.00 Weight (Pounds): 160 General Appearance: lethargic EENT: normal ENT inspection Neck: normal alignment Cardiovascular: normal peripheral pulses, normal rate, regular rhythm Respiratory/Chest: chest wall non-tender, lungs clear, normal breath sounds Abdomen: normal bowel sounds, non tender, soft Extremities: normal inspection Edema: no edema noted Arm (L), no edema noted Arm (R), no edema noted Leg (L), no edema noted Leg (R), no edema noted Pedal (L), no edema noted Pedal (R), no edema noted Generalized Neurologic: motor weakness Skin: normal pigmentation, warm/dry Chemo Dietrich DO Aug 09, 2017 14:34
[2017-08-09] MEDS: cefTRIAXone 1 GM in D5W 110 ML IVPB SCH (15:29)
[2017-08-09 16:00] VITALS: BP 129/67
[2017-08-09] MEDS ORDERED: D5 1/2NS 1000ml IV ONE (16:18)
--- NOTE | 2017-08-09 18:58 | Consultation ---
History of Present Illness General Date patient seen: Aug 09, 2017 Time patient seen: 18:21 Chief Complaint: Constipation Referring physician: ANAT BARNES Reason for Consultation: COPD Present Illness HPI Patient is 56 year old male with hypertension, HIV, Hep C presents with constipation for a few weeks. No chest pain or shortness of breath. Echo with normal LV function Blood cultures were positive for staph aureus, cardiology consulted to evaluate for endocarditis. No vegetation seen on TTE. WBC is elevated but CT abdomen with no acute process. The second problem is that he feels short of breath. He has a smoking history. He has a history of COPD and asthma. He denies any chest pain, productive cough. He denies any fevers or chills. He has low sodium that is improving with fluid restriction and 3 percent saline. Allergies: Coded Allergies: No Known Allergies (Unverified , 08/06/17) Medication History No Active Prescriptions or Reported Meds Patient History Healthcare decision maker Resuscitation status Full Code Advanced Directive on File Review of Systems Constitutional: Reports: no symptoms Eye: Reports: no symptoms ENT: Reports: no symptoms Respiratory: Reports: shortness of breath, JOVEL Cardiovascular: Reports: no symptoms Gastrointestinal: Reports: constipation Genitourinary: Reports: no symptoms Musculoskeletal: Reports: no symptoms Skin: Reports: no symptoms Psychiatric: Reports: no symptoms Neurological: Reports: no symptoms Endocrine: Reports: no symptoms Hematologic/Lymphatic: Reports: no symptoms Physical Exam General Appearance: no apparent distress Lines, tubes and drains: peripheral HEENT: normocephalic Neck: normal alignment Respiratory/Chest: chest wall non-tender Cardiovascular/Chest: normal peripheral pulses Abdomen: normal bowel sounds Extremities: normal range of motion Skin Exam: normal pigmentation 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 Musculoskeletal: normal muscle bulk Last 24 Hour Vital Signs Date Time Temp Pulse Resp B/P (MAP) Pulse Ox O2 Delivery O2 Flow Rate FiO2 08/09/17 16:00 98.6 08/09/17 16:00 98.6 82 18 129/67 92 Room Air 98.6 08/09/17 15:45 98.6 08/09/17 15:30 100.8 08/09/17 12:00 98.6 90 21 132/70 93 Room Air 98.6 08/09/17 11:09 100.8 08/09/17 09:39 100.8 90 18 127/68 91 Room Air 100.8 08/09/17 08:04 99.7 08/09/17 04:00 92 Room Air 08/09/17 03:55 99.7 91 20 123/68 92 Room Air 99.7 08/09/17 03:53 97.7 08/09/17 00:09 97.7 92 20 141/77 93 Room Air 97.7 08/09/17 00:09 93 Room Air 08/08/17 21:36 97.5 08/08/17 19:15 92 Room Air 08/08/17 19:15 97.5 81 20 137/73 92 Room Air 97.5 Intake and Output 08/08/17 08/09/17 19:00 07:00 Intake Total 1170.0 ml 250.000 ml Output Total 800 ml Balance 1170.0 ml -550.000 ml Intake Oral 600 ml IV Total 570.0 ml 250.000 ml Output Urine Total 800 ml # Voids 3 4 # Bowel Movements 1 1 Laboratory Tests Test 08/09/17 07:00 08/09/17 07:05 C-Reactive Protein, Quantitative 27.0 mg/dL (0.00-0.90) H White Blood Count 14.7 K/UL (4.8-10.8) H Red Blood Count 3.98 M/UL (4.70-6.10) L Hemoglobin 12.2 G/DL (14.2-18.0) L Hematocrit 34.2 % (42.0-52.0) L Mean Corpuscular Volume 86 FL (80-99) Mean Corpuscular Hemoglobin 30.7 PG (27.0-31.0) Mean Corpuscular Hemoglobin Concent 35.7 G/DL (32.0-36.0) Red Cell Distribution Width 11.2 % (11.6-14.8) L Platelet Count 172 K/UL (150-450) Mean Platelet Volume 7.4 FL (6.5-10.1) Neutrophils (%) (Auto) 83.9 % (45.0-75.0) H Lymphocytes (%) (Auto) 8.3 % (20.0-45.0) L Monocytes (%) (Auto) 7.0 % (1.0-10.0) Eosinophils (%) (Auto) 0.3 % (0.0-3.0) Basophils (%) (Auto) 0.5 % (0.0-2.0) Sodium Level 130 MMOL/L (136-145) L Potassium Level 3.5 MMOL/L (3.5-5.1) Chloride Level 95 MMOL/L (98-107) L Carbon Dioxide Level 23 MMOL/L (21-32) Anion Gap 12 mmol/L (5-15) Blood Urea Nitrogen 11 mg/dL (7-18) Creatinine 0.7 MG/DL (0.55-1.30) Estimat Glomerular Filtration Rate > 60 mL/min (>60) Glucose Level 112 MG/DL (74-106) H Uric Acid 3.7 MG/DL (2.6-7.2) Calcium Level 7.7 MG/DL (8.5-10.1) L Phosphorus Level 2.6 MG/DL (2.5-4.9) Magnesium Level 2.0 MG/DL (1.8-2.4) Total Bilirubin 0.6 MG/DL (0.2-1.0) Direct Bilirubin 0.3 MG/DL (0.0-0.3) Gamma Glutamyl Transpeptidase 30 U/L (5-85) Aspartate Amino Transf (AST/SGOT) 26 U/L (15-37) Alanine Aminotransferase (ALT/SGPT) 30 U/L (12-78) Alkaline Phosphatase 86 U/L (46-116) Total Creatine Kinase 52 U/L (26-308) Pro-B-Type Natriuretic Peptide 683 pg/mL (0-125) H Total Protein 6.5 G/DL (6.4-8.2) Albumin 1.9 G/DL (3.4-5.0) L Height (Feet): 5 Height (Inches): 8.00 Weight (Pounds): 160 Medications Current Medications Medications (Trade) Dose Ordered Sig/Veronica Route PRN Reason Start Time Stop Time Status Last Admin Dose Admin Acetaminophen (Tylenol) 650 mg Q4H PRN ORAL fever 08/06/17 14:15 09/05/17 14:14 08/09/17 11:09 Ceftriaxone Sodium 1 gm/ Dextrose 110 ml @ 220 mls/hr Q24H IVPB 08/07/17 16:00 08/14/17 15:59 08/09/17 15:29 Docusate Sodium (Colace) 100 mg TWICE A DAY ORAL 08/06/17 18:00 09/05/17 17:59 08/09/17 08:01 Heparin Sodium (Porcine) (Heparin 5000 units/ml) 5,000 units EVERY 12 HOURS SUBQ 08/06/17 21:00 09/05/17 20:59 Lansoprazole (Prevacid) 30 mg DAILY ORAL 08/10/17 09:00 09/09/17 08:59 Lorazepam (Ativan 2mg/ml 1ml) 1 mg Q4H PRN IV agitation 08/06/17 14:15 08/13/17 14:14 08/08/17 12:55 Metoclopramide HCl (Reglan) 10 mg Q6H PRN IVP REFRACTORY N/V 08/06/17 14:15 09/05/17 14:14 Morphine Sulfate (Morphine Sulfate) 2 mg Q4H PRN IVP Moderate Pain (Pain Scale 4-6) 08/08/17 14:15 08/13/17 14:14 Morphine Sulfate (Morphine Sulfate) 4 mg Q4H PRN IVP Severe Pain (Pain Scale 7-10) 08/08/17 13:30 08/15/17 13:29 08/09/17 15:30 Nitroglycerin (Ntg) 0.4 mg Q5M X 3 DOSES PRN SL Prn Chest Pain 08/06/17 14:15 09/05/17 14:14 Polyethylene Glycol (Miralax) 17 gm BEDTIME ORAL 08/06/17 21:00 09/05/17 20:59 08/06/17 21:43 Potassium Chloride (K-Dur) 20 meq DAILY ORAL 08/10/17 09:00 09/09/17 08:59 Temazepam (Restoril) 15 mg HSPRN PRN ORAL Insomnia 08/06/17 21:00 08/13/17 20:59 08/07/17 22:30 Vancomycin HCl (Vanco rx to dose) 1 ea DAILY PRN MISC PER RX PROTOCOL 08/08/17 15:15 09/07/17 15:14 Vancomycin HCl/ Dextrose 250 ml @ 166.667 mls/hr Q12HR@0500,1700 IVPB 08/09/17 05:00 08/14/17 04:59 6/28/18 03:52 Assessment/Plan Status: stable Assessment/Plan HIV HEP C HTN Assessment COPD Asthma Constipation Hyponatemia Sepsis Pneumonia Plan Reviewed TTE - no evidence of endocarditis, valvular destruction/regurgitation, no evidence of septic emboli, He does not have osler node, septic pulmonary infarcts, ICH, conjunctival hemorrhages, janeway lesions He does have a hx of drug use, positive blood cultures, and fevers (albeit broke with antibiotics) , no IV drug use endorsed He has a moderate pre test probability of IE ( 1 major, 2 minor) My recommendations are if he has persistent fevers/blood cultures on antibiotics we should proceed with NURA to determine course of therapy He certainly does not need surgical intervention at this time. Hypertension controlled Constipation per Murali Hart M.D. Aug 09, 2017 18:58
[2017-08-09 20:00] VITALS: BP 147/74
[2017-08-09] MEDS: Miralax 17gm pkt ORAL SCH (22:14)
[2017-08-10] VITALS: BP 120/73
[2017-08-10] MEDS: LORazepam Inj 2mg/ml 1ml IV PRN ×2 (01:00→20:23)
[2017-08-10] MEDS: Morphine Sulfate 4mg/ml Inj IVP PRN ×2 (02:50→08:06)
[2017-08-10 04:00] VITALS: BP 124/68
[2017-08-10 07:16] LABS: ALANINE AMINOTRANSFERASE 37 U/L (12-78); ALBUMIN 1.9 G/DL (3.4-5.0); ALBUMIN/GLOBULIN RATIO 0.4 (1.0-2.7); ALKALINE PHOSPHATASE 96 U/L (46-116); ANION GAP 10 mmol/L (5-15); ASPARTATE AMINO TRANSFERASE 32 U/L (15-37); BILIRUBIN,TOTAL 0.5 MG/DL (0.2-1.0); BLOOD UREA NITROGEN 11 mg/dL (7-18); CARBON DIOXIDE 24 MMOL/L (21-32); CHLORIDE 96 MMOL/L (98-107); CREATININE 0.7 MG/DL (0.55-1.30); POTASSIUM 3.5 MMOL/L (3.5-5.1); SODIUM 130 MMOL/L (136-145)
[2017-08-10 07:17] LABS: BASOPHILS % (AUTO) 0.2 % (0.0-2.0); EOSINOPHILS % (AUTO) 0.3 % (0.0-3.0); HEMATOCRIT 33.4 % (42.0-52.0); HEMOGLOBIN 11.5 G/DL (14.2-18.0); LYMPHOCYTES % (AUTO) 8.2 % (20.0-45.0); MEAN CORPUSCULAR VOLUME 87 FL (80-99); NEUTROPHILS % (AUTO) 84.3 % (45.0-75.0); PLATELET COUNT 200 K/UL (150-450); RED BLOOD COUNT 3.84 M/UL (4.70-6.10); RED CELL DISTRIBUTION WIDTH 11.1 % (11.6-14.8); WHITE BLOOD COUNT 13.9 K/UL (4.8-10.8)
[2017-08-10 07:30] LABS: PHOSPHORUS 2.8 MG/DL (2.5-4.9)
[2017-08-10 08:00] VITALS: BP 134/69
[2017-08-10] MEDS: Vancomycin 1250mg/D5W 250ml IVPB SCH (08:07)
[2017-08-10] MEDS: Heparin 5000 units/ml inj SUBQ SCH ×2 (08:09→21:54)
[2017-08-10] MEDS: Docusate 100mg cap ORAL SCH ×2 (08:09→17:24)
[2017-08-10 12:00] VITALS: BP 136/64
[2017-08-10] MEDS ORDERED: Isovue-300 100ml vial INJ PRN (13:15)
--- NOTE | 2017-08-10 13:25 | Infectious Diseases Prog Note ---
Assessment/Plan Assessment/Plan Abx: Cefepime x1 08/06 Levaquin x1 08/06 Assessment: Persistent MSSA Bacteremia- endocarditis until proven otherwise -r/o R lateral chest wall seeding as patient c/o severe pain in the area -pt endorse remote use of IVDA SEpsis-2ry to S. aureus bacteremia and possible endocarditis; possible PNA -08/07 Bcx / MSSA; 08/08 2/ S. Aureus -CXR no acute disease -sp cx Normal respiratory mati Fever/leukocytosis, improving -u/a neg Constipation -CT abd/p w/: Small left pleural effusion and left basilar atelectasis and possibly some consolidation. No definite acute abdominal or pelvic process. No CT evidence of significant constipation. Colonic diverticulosis. No evidence of diverticulitis. Mildly hypoattenuating liver, consistent with fatty change. 5 mm fat attenuation nodule is seen within the left adrenal. Prominent prostate, with nonspecific hypoattenuation. Subcentimeter low-attenuation left renal lesion, too small to characterize, most likely benign simple cysts. No further follow-up necessary Polysubstance abuse- refers alst IVDA was ~7 yrs ago -UDS +THC, cocaine and amphetamines HIV - non progressor- per patient, never on Tx and CD4 >500 and UD VL -CD4 5/10 (39.2%), VL p Hep C s/p tx (20 years ago) with sustained virologic response COPD/asthma tobacco abuse (stopped smoking 3d [employer]) Plan: -Switch Ceftriaxone abx d#5 and IV Vancomycin #3 to IV Oxacillin for MSSA bacteremia -monitor LFTs -Bcx x2 -CT chest w/ -NURA to eval for endocarditis (high suspicion) -f/u HIV VL -f/u cx -Monitor CBC/BMP, temperatures -aspiration precautions Thank you for this consultation. Will continue to follow along with you. Discussed with RN, and pharmacist.. Subjective Allergies: Coded Allergies: No Known Allergies (Unverified , 08/06/17) Subjective Tm 100.8 WBC improving remains bacteremic Objective Vital Signs Last 24 Hour Vital Signs Date Time Temp Pulse Resp B/P (MAP) Pulse Ox O2 Delivery O2 Flow Rate FiO2 08/10/17 12:31 94 Nasal Cannula 2.0 08/10/17 12:30 Room Air 2.0 28 08/10/17 12:28 100.8 6/29/18 12:00 100.8 88 20 136/64 95 Nasal Cannula 2.0 100.8 08/10/17 08:36 99.7 08/10/17 08:00 99.7 100 21 134/69 92 Room Air 99.7 08/10/17 04:00 99.7 95 18 124/68 94 Nasal Cannula 2.0 99.7 08/10/17 00:00 99.5 91 18 120/73 94 Nasal Cannula 2.0 99.5 08/09/17 20:00 99.4 95 20 147/74 92 Room Air 99.4 08/09/17 16:00 98.6 82 18 129/67 92 Room Air 98.6 08/09/17 15:45 98.6 08/09/17 15:30 100.8 Height (Feet): 5 Height (Inches): 8.00 Weight (Pounds): 160 Objective General Appearance: WD/WN HEENT: atraumatic Respiratory/Chest: chest wall non-tender, lungs clear Cardiovascular: normal peripheral pulses, normal rate Abdomen: normal bowel sounds, soft, non tender Skin: no rash Microbiology Date/Time Source Procedure Growth Status 08/08/17 20:15 Blood Blood Culture - Final Staphylococcus Aureus Complete 08/08/17 20:00 Blood Blood Culture - Final Staphylococcus Aureus Complete 08/07/17 14:30 Blood Blood Culture - Final Staphylococcus Aureus Complete 08/07/17 14:15 Blood Blood Culture - Final Staphylococcus Aureus Complete 08/07/17 21:34 Sputum Induced Gram Stain - Final Complete 08/07/17 21:34 Sputum Induced Sputum Culture - Final NORMAL UPPER RESPIRATORY MATI PRESENT Complete Laboratory Tests Test 08/10/17 01:30 08/10/17 03:58 Urine Random Sodium 63 mmol/L (20-110) White Blood Count 13.9 K/UL (4.8-10.8) H Red Blood Count 3.84 M/UL (4.70-6.10) L Hemoglobin 11.5 G/DL (14.2-18.0) L Hematocrit 33.4 % (42.0-52.0) L Mean Corpuscular Volume 87 FL (80-99) Mean Corpuscular Hemoglobin 30.0 PG (27.0-31.0) Mean Corpuscular Hemoglobin Concent 34.5 G/DL (32.0-36.0) Red Cell Distribution Width 11.1 % (11.6-14.8) L Platelet Count 200 K/UL (150-450) Mean Platelet Volume 6.7 FL (6.5-10.1) Neutrophils (%) (Auto) 84.3 % (45.0-75.0) H Lymphocytes (%) (Auto) 8.2 % (20.0-45.0) L Monocytes (%) (Auto) 7.0 % (1.0-10.0) Eosinophils (%) (Auto) 0.3 % (0.0-3.0) Basophils (%) (Auto) 0.2 % (0.0-2.0) Erythrocyte Sedimentation Rate 86 MM/HR (0-20) H Sodium Level 130 MMOL/L (136-145) L Potassium Level 3.5 MMOL/L (3.5-5.1) Chloride Level 96 MMOL/L (98-107) L Carbon Dioxide Level 24 MMOL/L (21-32) Anion Gap 10 mmol/L (5-15) Blood Urea Nitrogen 11 mg/dL (7-18) Creatinine 0.7 MG/DL (0.55-1.30) Estimat Glomerular Filtration Rate > 60 mL/min (>60) Glucose Level 126 MG/DL (74-106) H Osmolality 256 mOsm/kg (297-317) L Uric Acid 2.8 MG/DL (2.6-7.2) Calcium Level 8.0 MG/DL (8.5-10.1) L Phosphorus Level 2.8 MG/DL (2.5-4.9) Magnesium Level 1.8 MG/DL (1.8-2.4) Total Bilirubin 0.5 MG/DL (0.2-1.0) Aspartate Amino Transf (AST/SGOT) 32 U/L (15-37) Alanine Aminotransferase (ALT/SGPT) 37 U/L (12-78) Alkaline Phosphatase 96 U/L (46-116) Pro-B-Type Natriuretic Peptide 440 pg/mL (0-125) H Total Protein 6.3 G/DL (6.4-8.2) L Albumin 1.9 G/DL (3.4-5.0) L Globulin 4.4 g/dL Albumin/Globulin Ratio 0.4 (1.0-2.7) L Vancomycin Level Trough 6.6 ug/mL (5.0-12.0) Current Medications Medications (Trade) Dose Ordered Sig/Veronica Route PRN Reason Start Time Stop Time Status Last Admin Dose Admin Acetaminophen (Tylenol) 650 mg Q4H PRN ORAL fever 08/06/17 14:15 09/05/17 14:14 08/10/17 12:28 Ceftriaxone Sodium 1 gm/ Dextrose 110 ml @ 220 mls/hr Q24H IVPB 08/07/17 16:00 08/14/17 15:59 08/09/17 15:29 Docusate Sodium (Colace) 100 mg TWICE A DAY ORAL 08/06/17 18:00 09/05/17 17:59 08/10/17 08:09 Heparin Sodium (Porcine) (Heparin 5000 units/ml) 5,000 units EVERY 12 HOURS SUBQ 08/06/17 21:00 09/05/17 20:59 08/10/17 08:09 Lansoprazole (Prevacid) 30 mg DAILY ORAL 08/10/17 09:00 09/09/17 08:59 08/10/17 08:08 Lorazepam (Ativan 2mg/ml 1ml) 1 mg Q4H PRN IV agitation 08/06/17 14:15 08/13/17 14:14 08/10/17 01:00 Metoclopramide HCl (Reglan) 10 mg Q6H PRN IVP REFRACTORY N/V 08/06/17 14:15 09/05/17 14:14 Morphine Sulfate (Morphine Sulfate) 2 mg Q4H PRN IVP Moderate Pain (Pain Scale 4-6) 08/08/17 14:15 08/13/17 14:14 Morphine Sulfate (Morphine Sulfate) 4 mg Q4H PRN IVP Severe Pain (Pain Scale 7-10) 08/08/17 13:30 08/15/17 13:29 08/10/17 08:06 Nitroglycerin (Ntg) 0.4 mg Q5M X 3 DOSES PRN SL Prn Chest Pain 08/06/17 14:15 09/05/17 14:14 Polyethylene Glycol (Miralax) 17 gm BEDTIME ORAL 08/06/17 21:00 09/05/17 20:59 08/09/17 22:14 Potassium Chloride (K-Dur) 20 meq DAILY ORAL 08/10/17 09:00 09/09/17 08:59 08/10/17 08:08 Temazepam (Restoril) 15 mg HSPRN PRN ORAL Insomnia 08/06/17 21:00 08/13/17 20:59 08/09/17 22:14 Vancomycin HCl (Vanco rx to dose) 1 ea DAILY PRN MISC PER RX PROTOCOL 08/08/17 15:15 09/07/17 15:14 Vancomycin HCl/ Dextrose 250 ml @ 166.667 mls/hr Q12HR@0500,1700 IVPB 08/09/17 05:00 08/14/17 04:59 08/10/17 08:07 Steph Crowder M.D. Aug 10, 2017 13:25
--- NOTE | 2017-08-10 13:42 | GI Progress Note ---
Assessment/Plan Problems: (1) Polysubstance (excluding opioids) dependence ICD Codes: F19.20 - Other psychoactive substance dependence, uncomplicated SNOMED: 91117124 (2) Hepatitis C ICD Codes: B19.20 - Unspecified viral hepatitis C without hepatic coma SNOMED: 12473761 (3) Constipated ICD Codes: K59.00 - Constipation, unspecified SNOMED: 58338260 (4) Hyponatremia ICD Codes: E87.1 - Hypo-osmolality and hyponatremia SNOMED: 64250377 (5) HIV (human immunodeficiency virus infection) ICD Codes: B20 - Human immunodeficiency virus [HIV] disease SNOMED: 26813473 (6) Abdominal pain ICD Codes: R10.9 - Unspecified abdominal pain SNOMED: 21258807 Qualifiers: Qualified Codes: R10.32 - Left lower quadrant pain Status: stable Status Narrative Discussed with Dr. Lee. Assessment/Plan CT reviewed >> - Small left pleural effusion and left basilar atelectasis and possibly some consolidation - No definite acute abdominal or pelvic process - No CT evidence of significant constipation - Colonic diverticulosis. No evidence of diverticulitis - Mildly hypoattenuating liver, consistent with fatty change - prominent prostate, with nonspecific hypoattenuation HIV positive hep C antibody positive Utox positive for cocaine, MJ, amphetamines OB negative symptomatic treatment regular diet monitor H&H, prn transfusions bowel regime ppi fu labs outpatient GI procedures The patient was seen and examined at bedside and all new and available data was reviewed in the patients chart. I agree with the above findings, impression and plan. (Patient seen earlier today. Signature stamp does not reflect patient encounter time.). - Matthew Lee MD Subjective Subjective thirsty no abdominal pain Objective Last 24 Hour Vital Signs Date Time Temp Pulse Resp B/P (MAP) Pulse Ox O2 Delivery O2 Flow Rate FiO2 08/10/17 12:31 94 Nasal Cannula 2.0 28 08/10/17 12:30 Room Air 2.0 28 08/10/17 12:28 100.8 08/10/17 12:00 100.8 88 20 136/64 95 Nasal Cannula 2.0 100.8 08/10/17 08:36 99.7 08/10/17 08:00 99.7 100 21 134/69 92 Room Air 99.7 08/10/17 04:00 99.7 95 18 124/68 94 Nasal Cannula 2.0 99.7 08/10/17 00:00 99.5 91 18 120/73 94 Nasal Cannula 2.0 99.5 08/09/17 20:00 99.4 95 20 147/74 92 Room Air 99.4 08/09/17 16:00 98.6 82 18 129/67 92 Room Air 98.6 08/09/17 15:45 98.6 08/09/17 15:30 100.8 Intake and Output 08/09/17 08/10/17 19:00 07:00 Intake Total 250.000 ml Balance 250.000 ml IV Total 250.000 ml Laboratory Tests Test 08/10/17 01:30 08/10/17 03:58 Urine Random Sodium 63 mmol/L (20-110) White Blood Count 13.9 K/UL (4.8-10.8) H Red Blood Count 3.84 M/UL (4.70-6.10) L Hemoglobin 11.5 G/DL (14.2-18.0) L Hematocrit 33.4 % (42.0-52.0) L Mean Corpuscular Volume 87 FL (80-99) Mean Corpuscular Hemoglobin 30.0 PG (27.0-31.0) Mean Corpuscular Hemoglobin Concent 34.5 G/DL (32.0-36.0) Red Cell Distribution Width 11.1 % (11.6-14.8) L Platelet Count 200 K/UL (150-450) Mean Platelet Volume 6.7 FL (6.5-10.1) Neutrophils (%) (Auto) 84.3 % (45.0-75.0) H Lymphocytes (%) (Auto) 8.2 % (20.0-45.0) L Monocytes (%) (Auto) 7.0 % (1.0-10.0) Eosinophils (%) (Auto) 0.3 % (0.0-3.0) Basophils (%) (Auto) 0.2 % (0.0-2.0) Erythrocyte Sedimentation Rate 86 MM/HR (0-20) H Sodium Level 130 MMOL/L (136-145) L Potassium Level 3.5 MMOL/L (3.5-5.1) Chloride Level 96 MMOL/L (98-107) L Carbon Dioxide Level 24 MMOL/L (21-32) Anion Gap 10 mmol/L (5-15) Blood Urea Nitrogen 11 mg/dL (7-18) Creatinine 0.7 MG/DL (0.55-1.30) Estimat Glomerular Filtration Rate > 60 mL/min (>60) Glucose Level 126 MG/DL (74-106) H Osmolality 256 mOsm/kg (297-317) L Uric Acid 2.8 MG/DL (2.6-7.2) Calcium Level 8.0 MG/DL (8.5-10.1) L Phosphorus Level 2.8 MG/DL (2.5-4.9) Magnesium Level 1.8 MG/DL (1.8-2.4) Total Bilirubin 0.5 MG/DL (0.2-1.0) Aspartate Amino Transf (AST/SGOT) 32 U/L (15-37) Alanine Aminotransferase (ALT/SGPT) 37 U/L (12-78) Alkaline Phosphatase 96 U/L (46-116) Pro-B-Type Natriuretic Peptide 440 pg/mL (0-125) H Total Protein 6.3 G/DL (6.4-8.2) L Albumin 1.9 G/DL (3.4-5.0) L Globulin 4.4 g/dL Albumin/Globulin Ratio 0.4 (1.0-2.7) L Vancomycin Level Trough 6.6 ug/mL (5.0-12.0) Height (Feet): 5 Height (Inches): 8.00 Weight (Pounds): 160 General Appearance: WD/WN, no apparent distress, alert Cardiovascular: normal rate Respiratory/Chest: normal breath sounds, no respiratory distress Abdominal Exam: normal bowel sounds, non tender, soft Extremities: normal range of motion, non-tender Rupinder Armstrong NP Aug 10, 2017 13:42
--- NOTE | 2017-08-10 13:56 | General Progress Note ---
Assessment/Plan Problem List: (1) Hepatitis C ICD Codes: B19.20 - Unspecified viral hepatitis C without hepatic coma SNOMED: 52513386 (2) Constipation ICD Codes: K59.00 - Constipation, unspecified SNOMED: 97677947 Qualifiers: Qualified Codes: K59.00 - Constipation, unspecified (3) Hyponatremia ICD Codes: E87.1 - Hypo-osmolality and hyponatremia SNOMED: 71082957 (4) Abdominal pain ICD Codes: R10.9 - Unspecified abdominal pain SNOMED: 94894481 Qualifiers: Qualified Codes: R10.32 - Left lower quadrant pain (5) HIV (human immunodeficiency virus infection) ICD Codes: B20 - Human immunodeficiency virus [HIV] disease SNOMED: 99257792 (6) Polysubstance (excluding opioids) dependence ICD Codes: F19.20 - Other psychoactive substance dependence, uncomplicated SNOMED: 13266551 Status: unchanged Assessment/Plan ot pt deit ivf goi neph f/u cbc bmp am cardio eval for zoila dc plan snf if clear Subjective Constitutional: Reports: weakness Respiratory: Reports: shortness of breath Allergies: Coded Allergies: No Known Allergies (Unverified , 08/06/17) All Systems: reviewed and negative except above Subjective o2nc bed sleepy calm Objective Last 24 Hour Vital Signs Date Time Temp Pulse Resp B/P (MAP) Pulse Ox O2 Delivery O2 Flow Rate FiO2 08/10/17 12:31 94 Nasal Cannula 2.0 28 08/10/17 12:30 Room Air 2.0 28 08/10/17 12:28 100.8 08/10/17 12:00 100.8 88 20 136/64 95 Nasal Cannula 2.0 100.8 08/10/17 08:36 99.7 08/10/17 08:00 99.7 100 21 134/69 92 Room Air 99.7 08/10/17 04:00 99.7 95 18 124/68 94 Nasal Cannula 2.0 99.7 08/10/17 00:00 99.5 91 18 120/73 94 Nasal Cannula 2.0 99.5 08/09/17 20:00 99.4 95 20 147/74 92 Room Air 99.4 08/09/17 16:00 98.6 82 18 129/67 92 Room Air 98.6 08/09/17 15:45 98.6 08/09/17 15:30 100.8 Intake and Output 08/09/17 08/10/17 19:00 07:00 Intake Total 250.000 ml Balance 250.000 ml IV Total 250.000 ml Laboratory Tests 08/10/17 01:30: Urine Random Sodium 63 08/10/17 03:58: White Blood Count 13.9H, Red Blood Count 3.84L, Hemoglobin 11.5L, Hematocrit 33.4L, Mean Corpuscular Volume 87, Mean Corpuscular Hemoglobin 30.0, Mean Corpuscular Hemoglobin Concent 34.5, Red Cell Distribution Width 11.1L, Platelet Count 200, Mean Platelet Volume 6.7, Neutrophils (%) (Auto) 84.3H, Lymphocytes (%) (Auto) 8.2L, Monocytes (%) (Auto) 7.0, Eosinophils (%) (Auto) 0.3, Basophils (%) (Auto) 0.2, Erythrocyte Sedimentation Rate 86H, Sodium Level 130L, Potassium Level 3.5, Chloride Level 96L, Carbon Dioxide Level 24, Anion Gap 10, Blood Urea Nitrogen 11, Creatinine 0.7, Estimat Glomerular Filtration Rate > 60, Glucose Level 126H, Osmolality 256L, Uric Acid 2.8, Calcium Level 8.0L, Phosphorus Level 2.8, Magnesium Level 1.8, Total Bilirubin 0.5, Aspartate Amino Transf (AST/SGOT) 32, Alanine Aminotransferase (ALT/SGPT) 37, Alkaline Phosphatase 96, Pro-B-Type Natriuretic Peptide 440H, Total Protein 6.3L, Albumin 1.9L, Globulin 4.4, Albumin/Globulin Ratio 0.4L, Vancomycin Level Trough 6.6 Height (Feet): 5 Height (Inches): 8.00 Weight (Pounds): 160 General Appearance: lethargic EENT: normal ENT inspection Neck: normal alignment Cardiovascular: normal peripheral pulses, normal rate, regular rhythm Respiratory/Chest: chest wall non-tender, lungs clear, normal breath sounds Abdomen: normal bowel sounds, non tender, soft Extremities: normal inspection Edema: no edema noted Arm (L), no edema noted Arm (R), no edema noted Leg (L), no edema noted Leg (R), no edema noted Pedal (L), no edema noted Pedal (R), no edema noted Generalized Neurologic: motor weakness Skin: normal pigmentation, warm/dry Chemo Dietrich DO Aug 10, 2017 13:56
--- NOTE | 2017-08-10 15:02 | Nephrology Progress Note ---
Assessment/Plan Problem List: (1) Hyponatremia (2) HIV (human immunodeficiency virus infection) (3) COPD (chronic obstructive pulmonary disease) (4) Hepatitis C (5) Drug abuse and dependence (6) Hypoalbuminemia Assessment Sever HypoNatremia- na up to 130 HypoAlbuminemia HIV + Chronic Pain MultiDrug abuse: coccaine MJ Amphetamines Anemia COPD Hep C Plan po fluid restriction PRN Lasix monitor lytes K Mag Phos as needed DC planning? Subjective ROS Limited/Unobtainable: No Objective Objective Last 24 Hour Vital Signs Date Time Temp Pulse Resp B/P (MAP) Pulse Ox O2 Delivery O2 Flow Rate FiO2 08/10/17 13:27 100.0 08/10/17 12:31 94 Nasal Cannula 2.0 28 08/10/17 12:30 Room Air 2.0 28 08/10/17 12:28 100.8 08/10/17 12:00 100.8 88 20 136/64 95 Nasal Cannula 2.0 100.8 08/10/17 08:36 99.7 08/10/17 08:00 99.7 100 21 134/69 92 Room Air 99.7 08/10/17 04:00 99.7 95 18 124/68 94 Nasal Cannula 2.0 99.7 08/10/17 00:00 99.5 91 18 120/73 94 Nasal Cannula 2.0 99.5 08/09/17 20:00 99.4 95 20 147/74 92 Room Air 99.4 08/09/17 16:00 98.6 82 18 129/67 92 Room Air 98.6 08/09/17 15:30 100.8 Intake and Output 08/09/17 08/10/17 19:00 07:00 Intake Total 250.000 ml Balance 250.000 ml IV Total 250.000 ml Laboratory Tests 08/10/17 01:30: Urine Random Sodium 63 08/10/17 03:58: White Blood Count 13.9H, Red Blood Count 3.84L, Hemoglobin 11.5L, Hematocrit 33.4L, Mean Corpuscular Volume 87, Mean Corpuscular Hemoglobin 30.0, Mean Corpuscular Hemoglobin Concent 34.5, Red Cell Distribution Width 11.1L, Platelet Count 200, Mean Platelet Volume 6.7, Neutrophils (%) (Auto) 84.3H, Lymphocytes (%) (Auto) 8.2L, Monocytes (%) (Auto) 7.0, Eosinophils (%) (Auto) 0.3, Basophils (%) (Auto) 0.2, Erythrocyte Sedimentation Rate 86H, Sodium Level 130L, Potassium Level 3.5, Chloride Level 96L, Carbon Dioxide Level 24, Anion Gap 10, Blood Urea Nitrogen 11, Creatinine 0.7, Estimat Glomerular Filtration Rate > 60, Glucose Level 126H, Osmolality 256L, Uric Acid 2.8, Calcium Level 8.0L, Phosphorus Level 2.8, Magnesium Level 1.8, Total Bilirubin 0.5, Aspartate Amino Transf (AST/SGOT) 32, Alanine Aminotransferase (ALT/SGPT) 37, Alkaline Phosphatase 96, Pro-B-Type Natriuretic Peptide 440H, Total Protein 6.3L, Albumin 1.9L, Globulin 4.4, Albumin/Globulin Ratio 0.4L, Vancomycin Level Trough 6.6 Height (Feet): 5 Height (Inches): 8.00 Weight (Pounds): 160 General Appearance: no apparent distress, lethargic Objective no change JAMI KRISHNAMURTHY Aug 10, 2017 15:02
[2017-08-10] MEDS: Oxacillin 2 GM in NS 110 ML IVPB SCH ×3 (15:55→21:50)
[2017-08-10 16:00] VITALS: BP 117/64
--- NOTE | 2017-08-10 16:12 | Diagnostic Imaging Report ---
Clinical Indication: Right lateral wall chest pain Technique: IV administration nonionic contrast. Spiral acquisition obtained through the chest. Multiplanar reconstructions generated. Total dose length product 781.01 mGycm. CTDIvol(s) 17.67 mGy. Dose reduction achieved using automated exposure control Comparison: none Findings: There is a left-sided pleural effusion. This is larger than what was demonstrated on the limited lower thoracic cuts of prior abdomen pelvis CT of 08/06/2017. Scalloped margins suggest that this is loculated. There is some gas bubbles present within the left pleural fluid collection which is not evident on prior abdomen pelvis CT. These have largely not floated to the nondependent surface. There is compressive atelectasis of a significant portion of the left lower lobe. Fluid, likely loculated, is also seen within the left major fissure. There is some atelectasis at the inferior lingula. Small to moderate pleural effusion on the right, smaller than on the left, is probably free fluid, although some scalloping of the superior margin could indicate some loculation as well. There is aggressive atelectasis of a portion of the right lower lobe, less extensive than the left lower lobe. The remainder of the right lung is clear. The heart size is normal. There is no pericardial effusion. There are prominent but not frankly enlarged mediastinal lymph nodes. No definite mediastinal or hilar mass or adenopathy. The thyroid is unremarkable. No axillary or chest wall mass or adenopathy. The bones demonstrate degenerative proliferative changes of the thoracic spine. Included upper abdominal anatomy is unremarkable Impression: Left pleural effusion. Scalloped appearance suggests loculation. Presence of gas bubbles suggest infection by gas-forming organism. Gas bubbles appear trapped within the fluid rather than floating nondependently, indicating the fluid may be highly viscous. Right pleural effusion, less likely but possibly loculated as well Compressive atelectasis of significant portions of both lower lobes Findings discussed by phone with Dr. Dietrich at the time of interpretation The CT scanner at [facility] is accredited by the [employer] and the scans are performed using protocols designed to limit radiation exposure to as low as reasonably achievable to attain images of sufficient resolution adequate for diagnostic evaluation.
[2017-08-10 20:00] VITALS: BP 124/60
[2017-08-10] MEDS: Miralax 17gm pkt ORAL SCH (21:48)
--- NOTE | 2017-08-10 22:15 | Pulmonology Progress Note ---
Assessment/Plan Problems: (1) Pleural effusion (2) Abdominal pain (3) Constipation (4) Hyponatremia (5) COPD (chronic obstructive pulmonary disease) (6) Hepatitis C (7) HIV (human immunodeficiency virus infection) Assessment/Plan thoracic to evaluate BC positive for GPC , stap aureaus laxative, GI evaluation appreciated respiratory treatment Hyponatremia w/u HIV studies, Hep C positive titrate fio2 to sat of 92% ID evaluation appreciated pt/ot, pt has a walker. Subjective ROS Limited/Unobtainable: No Allergies: Coded Allergies: No Known Allergies (Unverified , 08/06/17) Objective Last 24 Hour Vital Signs Date Time Temp Pulse Resp B/P (MAP) Pulse Ox O2 Delivery O2 Flow Rate FiO2 08/10/17 20:00 97.9 83 18 124/60 93 Room Air 97.9 08/10/17 18:35 98.6 08/10/17 18:05 98.6 08/10/17 16:00 98.6 77 18 117/64 95 Nasal Cannula 2.0 98.6 08/10/17 13:27 100.0 08/10/17 12:31 94 Nasal Cannula 2.0 28 08/10/17 12:30 Room Air 2.0 28 08/10/17 12:28 100.8 08/10/17 12:00 100.8 88 20 136/64 95 Nasal Cannula 2.0 100.8 08/10/17 08:36 99.7 08/10/17 08:00 99.7 100 21 134/69 92 Room Air 99.7 08/10/17 04:00 99.7 95 18 124/68 94 Nasal Cannula 2.0 99.7 08/10/17 00:00 99.5 91 18 120/73 94 Nasal Cannula 2.0 99.5 Intake and Output 08/09/17 08/10/17 19:00 07:00 Intake Total 250.000 ml Balance 250.000 ml IV Total 250.000 ml General Appearance: WD/WN HEENT: normocephalic, atraumatic Cardiovascular: normal peripheral pulses, normal rate Genitourinary: normal external genitalia 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 Microbiology Date/Time Source Procedure Growth Status 08/08/17 20:15 Blood Blood Culture - Preliminary Staphylococcus Aureus Resulted 08/08/17 20:00 Blood Blood Culture - Preliminary Staphylococcus Aureus Resulted Laboratory Tests 08/10/17 01:30: Urine Random Sodium 63 08/10/17 03:58: White Blood Count 13.9H, Red Blood Count 3.84L, Hemoglobin 11.5L, Hematocrit 33.4L, Mean Corpuscular Volume 87, Mean Corpuscular Hemoglobin 30.0, Mean Corpuscular Hemoglobin Concent 34.5, Red Cell Distribution Width 11.1L, Platelet Count 200, Mean Platelet Volume 6.7, Neutrophils (%) (Auto) 84.3H, Lymphocytes (%) (Auto) 8.2L, Monocytes (%) (Auto) 7.0, Eosinophils (%) (Auto) 0.3, Basophils (%) (Auto) 0.2, Erythrocyte Sedimentation Rate 86H, Sodium Level 130L, Potassium Level 3.5, Chloride Level 96L, Carbon Dioxide Level 24, Anion Gap 10, Blood Urea Nitrogen 11, Creatinine 0.7, Estimat Glomerular Filtration Rate > 60, Glucose Level 126H, Osmolality 256L, Uric Acid 2.8, Calcium Level 8.0L, Phosphorus Level 2.8, Magnesium Level 1.8, Total Bilirubin 0.5, Aspartate Amino Transf (AST/SGOT) 32, Alanine Aminotransferase (ALT/SGPT) 37, Alkaline Phosphatase 96, Pro-B-Type Natriuretic Peptide 440H, Total Protein 6.3L, Albumin 1.9L, Globulin 4.4, Albumin/Globulin Ratio 0.4L, Vancomycin Level Trough 6.6 Current Medications Medications (Trade) Dose Ordered Sig/Veronica Route PRN Reason Start Time Stop Time Status Last Admin Dose Admin Acetaminophen (Tylenol) 650 mg Q4H PRN ORAL fever 08/06/17 14:15 09/05/17 14:14 08/10/17 12:28 Docusate Sodium (Colace) 100 mg TWICE A DAY ORAL 08/06/17 18:00 09/05/17 17:59 08/10/17 08:09 Heparin Sodium (Porcine) (Heparin 5000 units/ml) 5,000 units EVERY 12 HOURS SUBQ 08/06/17 21:00 09/05/17 20:59 08/10/17 21:54 Iopamidol (Isovue-300 100ml) 100 ml NOW PRN INJ Radiology Procedure 08/10/17 13:15 08/12/17 13:12 Lansoprazole (Prevacid) 30 mg DAILY ORAL 08/10/17 09:00 09/09/17 08:59 08/10/17 08:08 Lorazepam (Ativan 2mg/ml 1ml) 1 mg Q4H PRN IV agitation 08/06/17 14:15 08/13/17 14:14 08/10/17 20:23 Metoclopramide HCl (Reglan) 10 mg Q6H PRN IVP REFRACTORY N/V 08/06/17 14:15 09/05/17 14:14 Morphine Sulfate (Morphine Sulfate) 2 mg Q4H PRN IVP Moderate Pain (Pain Scale 4-6) 08/08/17 14:15 08/13/17 14:14 08/10/17 18:05 Morphine Sulfate (Morphine Sulfate) 4 mg Q3H PRN IVP Severe Pain (Pain Scale 7-10) 08/10/17 21:45 08/15/17 13:29 Nitroglycerin (Ntg) 0.4 mg Q5M X 3 DOSES PRN SL Prn Chest Pain 08/06/17 14:15 09/05/17 14:14 Oxacillin Sodium 2 gm/Sodium Chloride 110 ml @ 220 mls/hr Q4H IVPB 08/10/17 14:00 08/17/17 13:59 08/10/17 21:50 Polyethylene Glycol (Miralax) 17 gm BEDTIME ORAL 08/06/17 21:00 09/05/17 20:59 08/10/17 21:48 Potassium Chloride (K-Dur) 20 meq DAILY ORAL 08/10/17 09:00 09/09/17 08:59 08/10/17 08:08 Temazepam (Restoril) 15 mg HSPRN PRN ORAL Insomnia 08/06/17 21:00 08/13/17 20:59 08/09/17 22:14 Sally Cox MD Aug 10, 2017 22:15
[2017-08-11] VITALS: BP 131/64
[2017-08-11] MEDS: Morphine Sulfate 4mg/ml Inj IVP PRN ×5 (00:10→18:47)
--- NOTE | 2017-08-11 00:54 | Cardiology Progress Note ---
Assessment/Plan Status: stable Assessment/Plan HIV HEP C HTN Assessment COPD Asthma Constipation Hyponatemia Sepsis Pneumonia Plan Reviewed TTE - no evidence of endocarditis, valvular destruction/regurgitation, no evidence of septic emboli, He does not have osler node, septic pulmonary infarcts, ICH, conjunctival hemorrhages, janeway lesions He does have a hx of drug use, positive blood cultures, and fevers (albeit broke with antibiotics) , no IV drug use endorsed He has a moderate pre test probability of IE ( 1 major, 2 minor) My recommendations are if he has persistent fevers/blood cultures on antibiotics we should proceed with NURA to determine course of therapy He certainly does not need surgical intervention at this time. Hypertension controlled Constipation per GI Subjective Cardiovascular: Reports: no symptoms Respiratory: Reports: no symptoms Gastrointestinal/Abdominal: Reports: no symptoms Genitourinary: Reports: no symptoms Subjective No acute events, no complaints, hemodynamically stable, no chest pain Objective Last 24 Hour Vital Signs Date Time Temp Pulse Resp B/P (MAP) Pulse Ox O2 Delivery O2 Flow Rate FiO2 08/11/17 00:00 99.7 87 20 131/64 92 Room Air 99.7 08/10/17 20:00 97.9 83 18 124/60 93 Room Air 97.9 08/10/17 18:35 98.6 08/10/17 18:05 98.6 08/10/17 16:00 98.6 77 18 117/64 95 Nasal Cannula 2.0 98.6 08/10/17 13:27 100.0 08/10/17 12:31 94 Nasal Cannula 2.0 28 08/10/17 12:30 Room Air 2.0 28 08/10/17 12:28 100.8 08/10/17 12:00 100.8 88 20 136/64 95 Nasal Cannula 2.0 100.8 08/10/17 08:36 99.7 08/10/17 08:00 99.7 100 21 134/69 92 Room Air 99.7 08/10/17 04:00 99.7 95 18 124/68 94 Nasal Cannula 2.0 99.7 General Appearance: no apparent distress EENT: PERRL/EOMI Neck: non-tender, normal alignment Rhythm: SB Cardiovascular: normal peripheral pulses Respiratory/Chest: chest wall non-tender, lungs clear Abdomen: normal bowel sounds Extremities: normal range of motion 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 Intake and Output 08/10/17 08/11/17 19:00 07:00 Intake Total 240 ml Output Total 1250 ml Balance -1250 ml 240 ml Intake Oral 240 ml Output Urine Total 1250 ml Laboratory Tests Test 08/10/17 01:30 08/10/17 03:58 Urine Random Sodium 63 mmol/L (20-110) White Blood Count 13.9 K/UL (4.8-10.8) H Red Blood Count 3.84 M/UL (4.70-6.10) L Hemoglobin 11.5 G/DL (14.2-18.0) L Hematocrit 33.4 % (42.0-52.0) L Mean Corpuscular Volume 87 FL (80-99) Mean Corpuscular Hemoglobin 30.0 PG (27.0-31.0) Mean Corpuscular Hemoglobin Concent 34.5 G/DL (32.0-36.0) Red Cell Distribution Width 11.1 % (11.6-14.8) L Platelet Count 200 K/UL (150-450) Mean Platelet Volume 6.7 FL (6.5-10.1) Neutrophils (%) (Auto) 84.3 % (45.0-75.0) H Lymphocytes (%) (Auto) 8.2 % (20.0-45.0) L Monocytes (%) (Auto) 7.0 % (1.0-10.0) Eosinophils (%) (Auto) 0.3 % (0.0-3.0) Basophils (%) (Auto) 0.2 % (0.0-2.0) Erythrocyte Sedimentation Rate 86 MM/HR (0-20) H Sodium Level 130 MMOL/L (136-145) L Potassium Level 3.5 MMOL/L (3.5-5.1) Chloride Level 96 MMOL/L (98-107) L Carbon Dioxide Level 24 MMOL/L (21-32) Anion Gap 10 mmol/L (5-15) Blood Urea Nitrogen 11 mg/dL (7-18) Creatinine 0.7 MG/DL (0.55-1.30) Estimat Glomerular Filtration Rate > 60 mL/min (>60) Glucose Level 126 MG/DL (74-106) H Osmolality 256 mOsm/kg (297-317) L Uric Acid 2.8 MG/DL (2.6-7.2) Calcium Level 8.0 MG/DL (8.5-10.1) L Phosphorus Level 2.8 MG/DL (2.5-4.9) Magnesium Level 1.8 MG/DL (1.8-2.4) Total Bilirubin 0.5 MG/DL (0.2-1.0) Aspartate Amino Transf (AST/SGOT) 32 U/L (15-37) Alanine Aminotransferase (ALT/SGPT) 37 U/L (12-78) Alkaline Phosphatase 96 U/L (46-116) Pro-B-Type Natriuretic Peptide 440 pg/mL (0-125) H Total Protein 6.3 G/DL (6.4-8.2) L Albumin 1.9 G/DL (3.4-5.0) L Globulin 4.4 g/dL Albumin/Globulin Ratio 0.4 (1.0-2.7) L Vancomycin Level Trough 6.6 ug/mL (5.0-12.0) Microbiology Date/Time Source Procedure Growth Status 08/08/17 20:15 Blood Blood Culture - Preliminary Staphylococcus Aureus Resulted 08/08/17 20:00 Blood Blood Culture - Preliminary Staphylococcus Aureus Resulted Murali Victoria M.D. Aug 11, 2017 00:54
[2017-08-11] MEDS: Oxacillin 2 GM in NS 110 ML IVPB SCH ×6 (01:46→22:05)
[2017-08-11 04:00] VITALS: BP 115/66
[2017-08-11 07:16] LABS: ANION GAP 9 mmol/L (5-15); BLOOD UREA NITROGEN 10 mg/dL (7-18); CALCIUM 7.9 MG/DL (8.5-10.1); CARBON DIOXIDE 26 MMOL/L (21-32); CHLORIDE 97 MMOL/L (98-107); CREATININE 0.7 MG/DL (0.55-1.30); PHOSPHORUS 3.5 MG/DL (2.5-4.9); POTASSIUM 3.7 MMOL/L (3.5-5.1); SODIUM 131 MMOL/L (136-145)
[2017-08-11 07:24] LABS: BASOPHILS % (AUTO) 0.2 % (0.0-2.0); EOSINOPHILS % (AUTO) 0.6 % (0.0-3.0); HEMATOCRIT 33.1 % (42.0-52.0); HEMOGLOBIN 11.8 G/DL (14.2-18.0); LYMPHOCYTES % (AUTO) 10.6 % (20.0-45.0); MEAN CORPUSCULAR VOLUME 86 FL (80-99); NEUTROPHILS % (AUTO) 81.5 % (45.0-75.0); PLATELET COUNT 249 K/UL (150-450); RED BLOOD COUNT 3.83 M/UL (4.70-6.10); RED CELL DISTRIBUTION WIDTH 11.4 % (11.6-14.8); WHITE BLOOD COUNT 15.9 K/UL (4.8-10.8)
--- NOTE | 2017-08-11 07:33 | Pulmonology Progress Note ---
Assessment/Plan Assessment/Plan ASSESSMENT sepsis secondary to persistent Staph aureus bacteremia persistent staph aureus bacteremia probable empyema r/o endocarditis COPD Acute hyponatremia, improving Electrolyte imbalance with hypokalemia and hypophosphatemia HIV status Hepatitis C Abdominal pain , probably secondary to constipation Anemia of chronic disease Polysubstance-abuse remote history of IV drug abuse PLAN OF CARE Med Surg floor persistent blood culture positive for Staph aureus ; sputum culture negative per ID due to the history of IV drug abuse( last use 7 years ago) presumed endocarditis until proven otherwise antibiotic as per ID recommendation due to the high risk for endocarditis ID recommended NURA cardiology follows per cardio on TTE - no evidence of endocarditis, valvular destruction/ regurgitation, no evidence of septic emboli, patient does not have Osler node, septic pulmonary infarcts, ICH, conjunctival hemorrhages, Janeway lesions He does have hx of drug use, positive blood cultures, and fevers He has moderate pre test probability of IE ( 1 major, 2 minor) Per cardio recs if persistent fevers continued, will proceed with NURA to determine course of therapy No need for surgical intervention at this time. BP controlled O2 prn to keep pulse oximetry above 92 % pulmonary toilet prn 08/10-CT chest Left pleural effusion. Scalloped appearance suggests loculation. Presence of gas bubbles suggest infection by gas-forming organism. Gas bubbles appear trapped within the fluid rather than floating non dependently, indicating the fluid may be highly viscous. 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 for acute hyponatremia noted Na improving -131 from initial 120 fluid restriction Lasix prn Fall precautions PT/OT DVT GI prophylaxis Hep panel + hep C (20 yrs ago) with sustained virological response T cell subsets with CD4 51; 0 HIV - non progressor- as per patient, never was on Rx and CD4 >500 and UD VL, fup with VL case discussed and evaluated by supervising physician Subjective Allergies: Coded Allergies: No Known Allergies (Unverified , 08/06/17) Subjective persistent leukocytosis, intermittent fevers and associated SOB CT chest suggestive for probable empyema CT surgery eval pending Objective Last 24 Hour Vital Signs Date Time Temp Pulse Resp B/P (MAP) Pulse Ox O2 Delivery O2 Flow Rate FiO2 08/11/17 04:00 97.9 85 19 115/66 92 Room Air 97.9 08/11/17 00:00 99.7 87 20 131/64 92 Room Air 99.7 08/10/17 20:00 97.9 83 18 124/60 93 Room Air 97.9 08/10/17 18:35 98.6 08/10/17 18:05 98.6 08/10/17 16:00 98.6 77 18 117/64 95 Nasal Cannula 2.0 98.6 08/10/17 13:27 100.0 08/10/17 12:31 94 Nasal Cannula 2.0 28 08/10/17 12:30 Room Air 2.0 28 08/10/17 12:28 100.8 08/10/17 12:00 100.8 88 20 136/64 95 Nasal Cannula 2.0 100.8 08/10/17 08:36 99.7 08/10/17 08:00 99.7 100 21 134/69 92 Room Air 99.7 Intake and Output 08/10/17 08/11/17 19:00 07:00 Intake Total 570 ml Output Total 1250 ml Balance -1250 ml 570 ml Intake Oral 240 ml IV Total 330 ml Output Urine Total 1250 ml General Appearance: no acute distress HEENT: normocephalic, atraumatic, anicteric, mucous membranes moist Respiratory/Chest: lungs clear, no respiratory distress Cardiovascular: normal rate Abdomen: normal bowel sounds, soft, non tender Extremities: no edema, pedal pulses normal Neurologic/Psychiatric: no motor/sensory deficits, alert, responsive Musculoskeletal: normal muscle bulk Microbiology Date/Time Source Procedure Growth Status 08/08/17 20:15 Blood Blood Culture - Final Staphylococcus Aureus Complete 08/08/17 20:00 Blood Blood Culture - Final Staphylococcus Aureus Complete Laboratory Tests 08/11/17 03:15: Urine Random Sodium 108 08/11/17 04:45: White Blood Count 15.9H, Red Blood Count 3.83L, Hemoglobin 11.8L, Hematocrit 33.1L, Mean Corpuscular Volume 86, Mean Corpuscular Hemoglobin 30.8, Mean Corpuscular Hemoglobin Concent 35.7, Red Cell Distribution Width 11.4L, Platelet Count 249, Mean Platelet Volume 6.6, Neutrophils (%) (Auto) 81.5H, Lymphocytes (%) (Auto) 10.6L, Monocytes (%) (Auto) 7.0, Eosinophils (%) (Auto) 0.6, Basophils (%) (Auto) 0.2, Sodium Level 131L, Potassium Level 3.7, Chloride Level 97L, Carbon Dioxide Level 26, Anion Gap 9, Blood Urea Nitrogen 10, Creatinine 0.7, Estimat Glomerular Filtration Rate > 60, Glucose Level 98, Calcium Level 7.9L, Phosphorus Level 3.5, Magnesium Level 2.1 Current Medications Medications (Trade) Dose Ordered Sig/Veronica Route PRN Reason Start Time Stop Time Status Last Admin Dose Admin Acetaminophen (Tylenol) 650 mg Q4H PRN ORAL fever 08/06/17 14:15 09/05/17 14:14 08/10/17 12:28 Docusate Sodium (Colace) 100 mg TWICE A DAY ORAL 08/06/17 18:00 09/05/17 17:59 08/10/17 08:09 Heparin Sodium (Porcine) (Heparin 5000 units/ml) 5,000 units EVERY 12 HOURS SUBQ 08/06/17 21:00 09/05/17 20:59 08/10/17 21:54 Iopamidol (Isovue-300 100ml) 100 ml NOW PRN INJ Radiology Procedure 08/10/17 13:15 08/12/17 13:12 Lansoprazole (Prevacid) 30 mg DAILY ORAL 08/10/17 09:00 09/09/17 08:59 08/10/17 08:08 Lorazepam (Ativan 2mg/ml 1ml) 1 mg Q4H PRN IV agitation 08/06/17 14:15 08/13/17 14:14 08/10/17 20:23 Metoclopramide HCl (Reglan) 10 mg Q6H PRN IVP REFRACTORY N/V 08/06/17 14:15 09/05/17 14:14 Morphine Sulfate (Morphine Sulfate) 2 mg Q4H PRN IVP Moderate Pain (Pain Scale 4-6) 08/08/17 14:15 08/13/17 14:14 08/10/17 18:05 Morphine Sulfate (Morphine Sulfate) 4 mg Q3H PRN IVP Severe Pain (Pain Scale 7-10) 08/10/17 21:45 08/15/17 13:29 08/11/17 04:10 Nitroglycerin (Ntg) 0.4 mg Q5M X 3 DOSES PRN SL Prn Chest Pain 08/06/17 14:15 09/05/17 14:14 Oxacillin Sodium 2 gm/Sodium Chloride 110 ml @ 220 mls/hr Q4H IVPB 08/10/17 14:00 08/17/17 13:59 08/11/17 05:30 Polyethylene Glycol (Miralax) 17 gm BEDTIME ORAL 08/06/17 21:00 09/05/17 20:59 08/10/17 21:48 Potassium Chloride (K-Dur) 20 meq DAILY ORAL 08/10/17 09:00 09/09/17 08:59 08/10/17 08:08 Temazepam (Restoril) 15 mg HSPRN PRN ORAL Insomnia 08/06/17 21:00 08/13/17 20:59 08/09/17 22:14 Abbey Powell NP Aug 11, 2017 07:33
[2017-08-11 08:00] VITALS: BP 117/64
--- NOTE | 2017-08-11 08:54 | General Progress Note ---
Assessment/Plan Problem List: (1) Hepatitis C ICD Codes: B19.20 - Unspecified viral hepatitis C without hepatic coma SNOMED: 55047176 (2) Constipation ICD Codes: K59.00 - Constipation, unspecified SNOMED: 47881769 Qualifiers: Qualified Codes: K59.00 - Constipation, unspecified (3) Hyponatremia ICD Codes: E87.1 - Hypo-osmolality and hyponatremia SNOMED: 94403467 (4) Abdominal pain ICD Codes: R10.9 - Unspecified abdominal pain SNOMED: 29426059 Qualifiers: Qualified Codes: R10.32 - Left lower quadrant pain (5) HIV (human immunodeficiency virus infection) ICD Codes: B20 - Human immunodeficiency virus [HIV] disease SNOMED: 95282376 (6) Polysubstance (excluding opioids) dependence ICD Codes: F19.20 - Other psychoactive substance dependence, uncomplicated SNOMED: 01612463 (7) Pleural effusion ICD Codes: J90 - Pleural effusion, not elsewhere classified SNOMED: 29779739 Status: unchanged Assessment/Plan ot pt deit ivf goi neph f/u cbc bmp am Subjective Constitutional: Reports: weakness Allergies: Coded Allergies: No Known Allergies (Unverified , 08/06/17) All Systems: reviewed and negative except above Subjective o2nc bed sleepy calm Objective Last 24 Hour Vital Signs Date Time Temp Pulse Resp B/P (MAP) Pulse Ox O2 Delivery O2 Flow Rate FiO2 08/11/17 08:00 97.0 91 20 117/64 91 Nasal Cannula 2.0 97.0 08/11/17 07:59 93 Room Air 21 08/11/17 07:59 Room Air 21 08/11/17 04:00 97.9 85 19 115/66 92 Room Air 97.9 08/11/17 00:00 99.7 87 20 131/64 92 Room Air 99.7 08/10/17 20:00 97.9 83 18 124/60 93 Room Air 97.9 08/10/17 18:35 98.6 08/10/17 18:05 98.6 08/10/17 16:00 98.6 77 18 117/64 95 Nasal Cannula 2.0 98.6 08/10/17 13:27 100.0 08/10/17 12:31 94 Nasal Cannula 2.0 28 08/10/17 12:30 Room Air 2.0 28 08/10/17 12:28 100.8 08/10/17 12:00 100.8 88 20 136/64 95 Nasal Cannula 2.0 100.8 Intake and Output 08/10/17 08/11/17 19:00 07:00 Intake Total 570 ml Output Total 1250 ml Balance -1250 ml 570 ml Intake Oral 240 ml IV Total 330 ml Output Urine Total 1250 ml Laboratory Tests 08/11/17 03:15: Urine Random Sodium 108 08/11/17 04:45: White Blood Count 15.9H, Red Blood Count 3.83L, Hemoglobin 11.8L, Hematocrit 33.1L, Mean Corpuscular Volume 86, Mean Corpuscular Hemoglobin 30.8, Mean Corpuscular Hemoglobin Concent 35.7, Red Cell Distribution Width 11.4L, Platelet Count 249, Mean Platelet Volume 6.6, Neutrophils (%) (Auto) 81.5H, Lymphocytes (%) (Auto) 10.6L, Monocytes (%) (Auto) 7.0, Eosinophils (%) (Auto) 0.6, Basophils (%) (Auto) 0.2, Sodium Level 131L, Potassium Level 3.7, Chloride Level 97L, Carbon Dioxide Level 26, Anion Gap 9, Blood Urea Nitrogen 10, Creatinine 0.7, Estimat Glomerular Filtration Rate > 60, Glucose Level 98, Calcium Level 7.9L, Phosphorus Level 3.5, Magnesium Level 2.1 Height (Feet): 5 Height (Inches): 8.00 Weight (Pounds): 160 General Appearance: lethargic EENT: normal ENT inspection Neck: normal alignment Cardiovascular: normal peripheral pulses, normal rate, regular rhythm Respiratory/Chest: chest wall non-tender, decreased breath sounds Abdomen: normal bowel sounds, non tender, soft Extremities: normal inspection Edema: no edema noted Arm (L), no edema noted Arm (R), no edema noted Leg (L), no edema noted Leg (R), no edema noted Pedal (L), no edema noted Pedal (R), no edema noted Generalized Neurologic: motor weakness Skin: normal pigmentation, warm/dry Chemo Dietrich DO Aug 11, 2017 08:54
[2017-08-11] MEDS: Docusate 100mg cap ORAL SCH ×2 (09:00→18:00)
[2017-08-11] MEDS: Heparin 5000 units/ml inj SUBQ SCH ×2 (10:06→21:56)
--- NOTE | 2017-08-11 10:12 | Cardiology Progress Note ---
Assessment/Plan Status: doing well, stable Assessment/Plan HIV HEP C HTN Assessment COPD Asthma Constipation Hyponatemia Sepsis Pneumonia Plan Reviewed TTE - no evidence of endocarditis, valvular destruction/regurgitation, no evidence of septic emboli, He does not have osler node, septic pulmonary infarcts, ICH, conjunctival hemorrhages, janeway lesions He does have a hx of drug use, positive blood cultures, and fevers (albeit broke with antibiotics) , no IV drug use endorsed He has a moderate pre test probability of IE ( 1 major, 2 minor) My recommendations are if he has persistent fevers/blood cultures on antibiotics we should proceed with NURA to determine course of therapy He certainly does not need surgical intervention at this time. Hypertension controlled Constipation per GI Repeat blood cultures Subjective Cardiovascular: Reports: no symptoms Respiratory: Reports: no symptoms Gastrointestinal/Abdominal: Reports: no symptoms Genitourinary: Reports: no symptoms Subjective No acute events, no complaints, hemodynamically stable, no chest pain Patient has positive cultures from 08/07 and 08/08, will need to order another set to determine if persistently positive on Abx Treat empirically for endocarditis until NURA done, TTE reassuming however Objective Last 24 Hour Vital Signs Date Time Temp Pulse Resp B/P (MAP) Pulse Ox O2 Delivery O2 Flow Rate FiO2 08/11/17 08:00 97.0 91 20 117/64 91 Nasal Cannula 2.0 97.0 08/11/17 07:59 93 Room Air 21 08/11/17 07:59 Room Air 21 08/11/17 04:00 97.9 85 19 115/66 92 Room Air 97.9 08/11/17 00:00 99.7 87 20 131/64 92 Room Air 99.7 08/10/17 20:00 97.9 83 18 124/60 93 Room Air 97.9 08/10/17 18:35 98.6 08/10/17 18:05 98.6 08/10/17 16:00 98.6 77 18 117/64 95 Nasal Cannula 2.0 98.6 08/10/17 13:27 100.0 08/10/17 12:31 94 Nasal Cannula 2.0 28 08/10/17 12:30 Room Air 2.0 28 08/10/17 12:28 100.8 08/10/17 12:00 100.8 88 20 136/64 95 Nasal Cannula 2.0 100.8 General Appearance: no apparent distress EENT: PERRL/EOMI Neck: non-tender Rhythm: NSR Cardiovascular: normal peripheral pulses Respiratory/Chest: chest wall non-tender Abdomen: normal bowel sounds Extremities: normal range of motion 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 Intake and Output 08/10/17 08/11/17 19:00 07:00 Intake Total 570 ml Output Total 1250 ml Balance -1250 ml 570 ml Intake Oral 240 ml IV Total 330 ml Output Urine Total 1250 ml Laboratory Tests Test 08/11/17 03:15 08/11/17 04:45 Urine Random Sodium 108 mmol/L (20-110) White Blood Count 15.9 K/UL (4.8-10.8) H Red Blood Count 3.83 M/UL (4.70-6.10) L Hemoglobin 11.8 G/DL (14.2-18.0) L Hematocrit 33.1 % (42.0-52.0) L Mean Corpuscular Volume 86 FL (80-99) Mean Corpuscular Hemoglobin 30.8 PG (27.0-31.0) Mean Corpuscular Hemoglobin Concent 35.7 G/DL (32.0-36.0) Red Cell Distribution Width 11.4 % (11.6-14.8) L Platelet Count 249 K/UL (150-450) Mean Platelet Volume 6.6 FL (6.5-10.1) Neutrophils (%) (Auto) 81.5 % (45.0-75.0) H Lymphocytes (%) (Auto) 10.6 % (20.0-45.0) L Monocytes (%) (Auto) 7.0 % (1.0-10.0) Eosinophils (%) (Auto) 0.6 % (0.0-3.0) Basophils (%) (Auto) 0.2 % (0.0-2.0) Sodium Level 131 MMOL/L (136-145) L Potassium Level 3.7 MMOL/L (3.5-5.1) Chloride Level 97 MMOL/L (98-107) L Carbon Dioxide Level 26 MMOL/L (21-32) Anion Gap 9 mmol/L (5-15) Blood Urea Nitrogen 10 mg/dL (7-18) Creatinine 0.7 MG/DL (0.55-1.30) Estimat Glomerular Filtration Rate > 60 mL/min (>60) Glucose Level 98 MG/DL (74-106) Calcium Level 7.9 MG/DL (8.5-10.1) L Phosphorus Level 3.5 MG/DL (2.5-4.9) Magnesium Level 2.1 MG/DL (1.8-2.4) Microbiology Date/Time Source Procedure Growth Status 08/08/17 20:15 Blood Blood Culture - Final Staphylococcus Aureus Complete 08/08/17 20:00 Blood Blood Culture - Final Staphylococcus Aureus Complete Murali Victoria M.D. Aug 11, 2017 10:12
--- NOTE | 2017-08-11 11:51 | Nephrology Progress Note ---
Assessment/Plan Problem List: (1) Hyponatremia (2) HIV (human immunodeficiency virus infection) (3) COPD (chronic obstructive pulmonary disease) (4) Hepatitis C (5) Drug abuse and dependence (6) Hypoalbuminemia Assessment Sever HypoNatremia- na up to 131 HypoAlbuminemia HIV + Chronic Pain MultiDrug abuse: coccaine MJ Amphetamines Anemia COPD Hep C Plan po fluid restriction PRN Lasix monitor lytes K Mag Phos as needed DC planning? Subjective ROS Limited/Unobtainable: No Constitutional: Reports: malaise Objective Objective Last 24 Hour Vital Signs Date Time Temp Pulse Resp B/P (MAP) Pulse Ox O2 Delivery O2 Flow Rate FiO2 08/11/17 08:00 97.0 91 20 117/64 91 Nasal Cannula 2.0 97.0 08/11/17 07:59 93 Room Air 21 08/11/17 07:59 Room Air 21 08/11/17 04:00 97.9 85 19 115/66 92 Room Air 97.9 08/11/17 00:00 99.7 87 20 131/64 92 Room Air 99.7 08/10/17 20:00 97.9 83 18 124/60 93 Room Air 97.9 08/10/17 18:35 98.6 08/10/17 18:05 98.6 08/10/17 16:00 98.6 77 18 117/64 95 Nasal Cannula 2.0 98.6 08/10/17 13:27 100.0 08/10/17 12:31 94 Nasal Cannula 2.0 28 08/10/17 12:30 Room Air 2.0 28 08/10/17 12:28 100.8 08/10/17 12:00 100.8 88 20 136/64 95 Nasal Cannula 2.0 100.8 Intake and Output 08/10/17 08/11/17 19:00 07:00 Intake Total 570 ml Output Total 1250 ml Balance -1250 ml 570 ml Intake Oral 240 ml IV Total 330 ml Output Urine Total 1250 ml Laboratory Tests 08/11/17 03:15: Urine Random Sodium 108 08/11/17 04:45: White Blood Count 15.9H, Red Blood Count 3.83L, Hemoglobin 11.8L, Hematocrit 33.1L, Mean Corpuscular Volume 86, Mean Corpuscular Hemoglobin 30.8, Mean Corpuscular Hemoglobin Concent 35.7, Red Cell Distribution Width 11.4L, Platelet Count 249, Mean Platelet Volume 6.6, Neutrophils (%) (Auto) 81.5H, Lymphocytes (%) (Auto) 10.6L, Monocytes (%) (Auto) 7.0, Eosinophils (%) (Auto) 0.6, Basophils (%) (Auto) 0.2, Sodium Level 131L, Potassium Level 3.7, Chloride Level 97L, Carbon Dioxide Level 26, Anion Gap 9, Blood Urea Nitrogen 10, Creatinine 0.7, Estimat Glomerular Filtration Rate > 60, Glucose Level 98, Calcium Level 7.9L, Phosphorus Level 3.5, Magnesium Level 2.1 Height (Feet): 5 Height (Inches): 8.00 Weight (Pounds): 160 General Appearance: no apparent distress Objective no change JAMI KRISHNAMURTHY Aug 11, 2017 11:51
[2017-08-11 12:08] VITALS: BP 123/70
--- NOTE | 2017-08-11 14:17 | Infectious Diseases Prog Note ---
Assessment/Plan Assessment/Plan Assessment: Persistent MSSA Bacteremia Ro endocarditis Probable Empyema 08/10-CT chest Left pleural effusion. Scalloped appearance suggests loculation. Presence of gas bubbles suggest infection by gas-forming organism. Gas bubbles appear trapped within the fluid rather than floating nondependently, indicating the fluid may be highly viscous. -r/o R lateral chest wall seeding as patient c/o severe pain in the area Sepsis -08/07 Bcx / MSSA; 08/08 2/ S. Aureus -CXR no acute disease -sp cx Normal respiratory mati Fever, SP Leukocytosis, increased Polysubstance abuse- refers last IVDA was ~7 yrs ago -UDS +THC, cocaine and amphetamines HIV - non progressor- per patient, never on Tx and CD4 >500 and UD VL -CD4 06/21 (39.2%), VL p Hep C s/p tx (20 years ago) with sustained virologic response COPD/asthma tobacco abuse (stopped smoking 3d [employer]) Constipation -CT abd/p w/: Small left pleural effusion and left basilar atelectasis and possibly some consolidation. No definite acute abdominal or pelvic process. No CT evidence of significant constipation. Colonic diverticulosis. No evidence of diverticulitis. Mildly hypoattenuating liver, consistent with fatty change. 5 mm fat attenuation nodule is seen within the left adrenal. Prominent prostate, with nonspecific hypoattenuation. Subcentimeter low-attenuation left renal lesion, too small to characterize, most likely benign simple cysts. No further follow-up necessary Plan: - Cont IV Oxacillin ( AB Rx d# / ) for MSSA bacteremia 08/10 Ceftriaxone abx d# 6 IV Vancomycin #3 -monitor LFTs -Bcx x2 -NURA to eval for endocarditis (high suspicion) -f/u cx repeat blood Cx -Monitor CBC/BMP, temperatures -aspiration precautions probable VATS on Sunday Subjective Allergies: Coded Allergies: No Known Allergies (Unverified , 08/06/17) Subjective Afebrile Objective Vital Signs Last 24 Hour Vital Signs Date Time Temp Pulse Resp B/P (MAP) Pulse Ox O2 Delivery O2 Flow Rate FiO2 08/11/17 12:08 97.7 89 20 123/70 92 Nasal Cannula 2.0 97.7 08/11/17 08:00 97.0 91 20 117/64 91 Nasal Cannula 2.0 97.0 08/11/17 07:59 93 Room Air 21 08/11/17 07:59 Room Air 21 08/11/17 04:00 97.9 85 19 115/66 92 Room Air 97.9 08/11/17 00:00 99.7 87 20 131/64 92 Room Air 99.7 08/10/17 20:00 97.9 83 18 124/60 93 Room Air 97.9 08/10/17 18:35 98.6 08/10/17 18:05 98.6 08/10/17 16:00 98.6 77 18 117/64 95 Nasal Cannula 2.0 98.6 Height (Feet): 5 Height (Inches): 8.00 Weight (Pounds): 160 HEENT: mucous membranes moist Respiratory/Chest: no respiratory distress Cardiovascular: regularly irregular Abdomen: non distended Microbiology Date/Time Source Procedure Growth Status 08/08/17 20:15 Blood Blood Culture - Final Staphylococcus Aureus Complete 08/08/17 20:00 Blood Blood Culture - Final Staphylococcus Aureus Complete Laboratory Tests Test 08/11/17 03:15 08/11/17 04:45 Urine Random Sodium 108 mmol/L (20-110) White Blood Count 15.9 K/UL (4.8-10.8) H Red Blood Count 3.83 M/UL (4.70-6.10) L Hemoglobin 11.8 G/DL (14.2-18.0) L Hematocrit 33.1 % (42.0-52.0) L Mean Corpuscular Volume 86 FL (80-99) Mean Corpuscular Hemoglobin 30.8 PG (27.0-31.0) Mean Corpuscular Hemoglobin Concent 35.7 G/DL (32.0-36.0) Red Cell Distribution Width 11.4 % (11.6-14.8) L Platelet Count 249 K/UL (150-450) Mean Platelet Volume 6.6 FL (6.5-10.1) Neutrophils (%) (Auto) 81.5 % (45.0-75.0) H Lymphocytes (%) (Auto) 10.6 % (20.0-45.0) L Monocytes (%) (Auto) 7.0 % (1.0-10.0) Eosinophils (%) (Auto) 0.6 % (0.0-3.0) Basophils (%) (Auto) 0.2 % (0.0-2.0) Sodium Level 131 MMOL/L (136-145) L Potassium Level 3.7 MMOL/L (3.5-5.1) Chloride Level 97 MMOL/L (98-107) L Carbon Dioxide Level 26 MMOL/L (21-32) Anion Gap 9 mmol/L (5-15) Blood Urea Nitrogen 10 mg/dL (7-18) Creatinine 0.7 MG/DL (0.55-1.30) Estimat Glomerular Filtration Rate > 60 mL/min (>60) Glucose Level 98 MG/DL (74-106) Calcium Level 7.9 MG/DL (8.5-10.1) L Phosphorus Level 3.5 MG/DL (2.5-4.9) Magnesium Level 2.1 MG/DL (1.8-2.4) Current Medications Medications (Trade) Dose Ordered Sig/Veronica Route PRN Reason Start Time Stop Time Status Last Admin Dose Admin Acetaminophen (Tylenol) 650 mg Q4H PRN ORAL fever 08/06/17 14:15 09/05/17 14:14 08/10/17 12:28 Docusate Sodium (Colace) 100 mg TWICE A DAY ORAL 08/06/17 18:00 09/05/17 17:59 08/10/17 08:09 Heparin Sodium (Porcine) (Heparin 5000 units/ml) 5,000 units EVERY 12 HOURS SUBQ 08/06/17 21:00 09/05/17 20:59 08/11/17 10:06 Iopamidol (Isovue-300 100ml) 100 ml NOW PRN INJ Radiology Procedure 08/10/17 13:15 08/12/17 13:12 Lansoprazole (Prevacid) 30 mg DAILY ORAL 08/10/17 09:00 09/09/17 08:59 08/11/17 10:05 Lorazepam (Ativan 2mg/ml 1ml) 1 mg Q4H PRN IV agitation 08/11/17 14:15 08/18/17 14:14 Metoclopramide HCl (Reglan) 10 mg Q6H PRN IVP REFRACTORY N/V 08/06/17 14:15 09/05/17 14:14 Morphine Sulfate (Morphine Sulfate) 2 mg Q4H PRN IVP Moderate Pain (Pain Scale 4-6) 08/08/17 14:15 08/13/17 14:14 08/10/17 18:05 Morphine Sulfate (Morphine Sulfate) 4 mg Q3H PRN IVP Severe Pain (Pain Scale 7-10) 08/10/17 21:45 08/15/17 13:29 08/11/17 10:13 Nitroglycerin (Ntg) 0.4 mg Q5M X 3 DOSES PRN SL Prn Chest Pain 08/06/17 14:15 09/05/17 14:14 Oxacillin Sodium 2 gm/Sodium Chloride 110 ml @ 220 mls/hr Q4H IVPB 08/10/17 14:00 08/17/17 13:59 08/11/17 10:07 Polyethylene Glycol (Miralax) 17 gm BEDTIME ORAL 08/06/17 21:00 09/05/17 20:59 08/10/17 21:48 Potassium Chloride (K-Dur) 20 meq DAILY ORAL 08/10/17 09:00 09/09/17 08:59 08/11/17 10:05 Temazepam (Restoril) 15 mg HSPRN PRN ORAL Insomnia 08/11/17 11:30 08/18/17 11:29 Mushtaq Almonte MD Aug 11, 2017 14:16
[2017-08-11 16:09] VITALS: BP 119/68
--- NOTE | 2017-08-11 17:45 | Consultation ---
DATE OF CONSULTATION: 08/11/2017 SURGEON: Abel Grimes M.D., speciality, Thoracic surgery. REFERRING PHYSICIAN: Sally Cox M.D. HISTORY OF PRESENT ILLNESS: The patient is a 56-year-old, male who was admitted to [facility] with a history of constipation, fevers and chills associated with shortness of breath. Workup including a chest CT scan demonstrated a left loculated pleural effusion. Thoracic surgery was then consulted for further evaluation. PAST MEDICAL HISTORY: Notable for 1. HIV. 2. Hepatitis C. 3. Asthma. PAST SURGICAL HISTORY: Notable for right knee surgery in 1971. MEDICATIONS: Reviewed. ALLERGIES: The patient has no known drug allergies. SOCIAL AND FAMILY HISTORY: Noncontributory. PHYSICAL EXAMINATION: VITAL SIGNS: She is noted to be afebrile. Her vitals are within normal limits. CARDIAC: Regular rate and rhythm. No gallop or murmur. RESPIRATORY: Clear to auscultation on the right with decreased crackles on the left. ABDOMEN: Soft, nondistended, and nontender with normoactive bowel sounds. EXTREMITY: No evidence of cyanosis, clubbing, or edema. LABORATORY AND DIAGNOSTIC DATA: Laboratory performed on 08/11/2017 demonstrated WBC of 15.9, hemoglobin of 11.8, hematocrit 33 and a platelet count of 249. Sodium is 131, potassium 3.7, chloride 97, bicarbonate is 26, BUN is 10, creatinine is 0.7, and glucose is 98. PT is 10, PTT is 20 and INR is 1.0. A chest CT scan was obtained on 08/10/2016, which demonstrated left loculated pleural effusion with gas bubble suggesting an intrathoracic infection. ASSESSMENT AND PLAN: This is a 56-year-old, male who presented to [facility] with fevers and chills associated with shortness of breath as well as radiographic imaging studies suggestive of empyema. The patient was evaluated at bedside. After reviewing his clinical database, I recommend he undergo an exploratory left video-assisted thoracoscopic surgery. The risks and benefits of the proposed operation were explained to the patient. He feels that he understands and wishes to proceed without reservation. All questions were answered to his satisfaction. I want to thank you for referring this patient to my attention. If there are any questions in regard to this patient's clinical care, please do not hesitate to contact me. Mane M.D. DR: BRAEDEN JOB#: [id number] CC:
[2017-08-11 20:00] VITALS: BP 112/60
[2017-08-11] MEDS: Miralax 17gm pkt ORAL SCH (22:03)
[2017-08-11] MEDS: LORazepam Inj 2mg/ml 1ml IV PRN (22:05)
[2017-08-12] VITALS: BP_SYST 116; BP_SYST 117; BP_DIAS 64; BP_DIAS 71
[2017-08-12] MEDS: Oxacillin 2 GM in NS 110 ML IVPB SCH ×6 (02:24→21:33)
[2017-08-12] MEDS: Morphine Sulfate 4mg/ml Inj IVP PRN ×5 (02:25→23:54)
[2017-08-12 04:00] VITALS: BP 126/68
[2017-08-12 07:10] LABS: ANION GAP 5 mmol/L (5-15); BLOOD UREA NITROGEN 10 mg/dL (7-18); CARBON DIOXIDE 24 MMOL/L (21-32); CHLORIDE 98 MMOL/L (98-107); CREATININE 0.7 MG/DL (0.55-1.30); SODIUM 127 MMOL/L (136-145)
[2017-08-12 07:12] LABS: BASOPHILS % (AUTO) 0.6 % (0.0-2.0); EOSINOPHILS % (AUTO) 0.4 % (0.0-3.0); HEMATOCRIT 34.4 % (42.0-52.0); HEMOGLOBIN 11.6 G/DL (14.2-18.0); LYMPHOCYTES % (AUTO) 10.4 % (20.0-45.0); MEAN CORPUSCULAR VOLUME 88 FL (80-99); MONOCYTES % (AUTO) 6.2 % (1.0-10.0); NEUTROPHILS % (AUTO) 82.4 % (45.0-75.0); PLATELET COUNT 272 K/UL (150-450); RED CELL DISTRIBUTION WIDTH 11.7 % (11.6-14.8)
[2017-08-12 08:00] VITALS: BP 125/66
[2017-08-12] MEDS: Docusate 100mg cap ORAL SCH ×2 (08:24→17:30)
[2017-08-12] MEDS: Heparin 5000 units/ml inj SUBQ SCH ×2 (08:26→20:32)
--- NOTE | 2017-08-12 08:57 | Pulmonology Progress Note ---
Assessment/Plan Assessment/Plan ASSESSMENT sepsis secondary to persistent Staph aureus bacteremia persistent staph aureus bacteremia probable empyema r/o endocarditis COPD Acute hyponatremia Electrolyte imbalance with hypokalemia and hypophosphatemia HIV status Hepatitis C Abdominal pain , probably secondary to constipation Anemia of chronic disease Polysubstance-abuse remote history of IV drug abuse PLAN OF CARE Med Surg floor persistent blood culture positive for Staph aureus ; sputum culture negative per ID due to the history of IV drug abuse( last use 7 years ago) presumed endocarditis until proven otherwise antibiotic as per ID recommendation due to the high risk for endocarditis ID recommended NURA cardiology follows per cardio on TTE - no evidence of endocarditis, valvular destruction/ regurgitation, no evidence of septic emboli, patient does not have Osler node, septic pulmonary infarcts, ICH, conjunctival hemorrhages, [place] lesions He does have hx of drug use, positive blood cultures, and fevers He has moderate pre test probability of IE ( 1 major, 2 minor) Per cardio recs if persistent fevers continued, will proceed with NURA to determine course of therapy No need for surgical intervention at this time. BP controlled O2 prn to keep pulse oximetry above 92 % pulmonary toilet prn 08/10-CT chest Left pleural effusion. Scalloped appearance suggests loculation. Presence of gas bubbles suggest infection by gas-forming organism. Gas bubbles appear trapped within the fluid rather than floating nondependently, indicating the fluid may be highly viscous. seen and evaluated by CT surgeon CT surgeon recommended exploratory left video-assisted thoracoscopic surgery, planned for Monday 08/14. 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 compliance issuesc Lasix prn Fall precautions PT/OT DVT GI prophylaxis Hep panel + hep C (20 yrs ago) with sustained virological response T cell subsets with CD4 51; 0 HIV - non progressor- as per patient, never was on Rx and CD4 >500 and UD VL, fup with VL case discussed and evaluated by supervising physician Subjective Allergies: Coded Allergies: No Known Allergies (Unverified , 08/06/17) Subjective leukocytosis trending up , intermittent fevers: afebrile currently, pulse ox stable on O2 via NC intermittent SOB seen and evaluated by CT surgeon on 08/11 Objective Last 24 Hour Vital Signs Date Time Temp Pulse Resp B/P (MAP) Pulse Ox O2 Delivery O2 Flow Rate FiO2 08/12/17 08:00 Room Air 08/12/17 08:00 98.0 99 19 125/66 95 98.0 08/12/17 04:00 98.9 99 18 126/68 93 Nasal Cannula 2.0 98.9 08/12/17 00:00 98.8 103 20 117/71 96 Nasal Cannula 2.0 93 98.8 08/11/17 20:00 97.9 77 19 112/60 93 Nasal Cannula 2.0 97.9 08/11/17 19:30 95 Nasal Cannula 2.0 28 08/11/17 19:30 Nasal Cannula 2.0 28 08/11/17 16:09 97.6 84 20 119/68 91 Nasal Cannula 2.0 97.6 08/11/17 12:08 97.7 89 20 123/70 92 Nasal Cannula 2.0 97.7 Intake and Output 08/11/17 08/12/17 19:00 07:00 Intake Total 2760 ml 400 ml Output Total 900 ml Balance 1860 ml 400 ml Intake Oral 2760 ml 180 ml IV Total 220 ml Output Urine Total 900 ml # Voids 3 Objective General Appearance: no acute distress HEENT: normocephalic, atraumatic, anicteric, mucous membranes moist Respiratory/Chest: lungs clear, no respiratory distress Cardiovascular: normal rate Abdomen: normal bowel sounds, soft, non tender Extremities: no edema, pedal pulses normal Neurologic/Psychiatric: no motor/sensory deficits, alert, responsive Musculoskeletal: normal muscle bulk Microbiology Date/Time Source Procedure Growth Status 08/11/17 10:35 Blood Blood Culture - Preliminary Resulted 08/10/17 19:40 Blood Blood Culture - Preliminary Resulted 08/10/17 19:20 Blood Blood Culture - Preliminary Resulted Laboratory Tests 08/12/17 04:45: White Blood Count 17.0H, Red Blood Count 3.90L, Hemoglobin 11.6L, Hematocrit 34.4L, Mean Corpuscular Volume 88, Mean Corpuscular Hemoglobin 29.8, Mean Corpuscular Hemoglobin Concent 33.9, Red Cell Distribution Width 11.7, Platelet Count 272, Mean Platelet Volume 5.8L, Neutrophils (%) (Auto) 82.4H, Lymphocytes (%) (Auto) 10.4L, Monocytes (%) (Auto) 6.2, Eosinophils (%) (Auto) 0.4, Basophils (%) (Auto) 0.6, Sodium Level 127L, Potassium Level 4.0, Chloride Level 98, Carbon Dioxide Level 24, Anion Gap 5, Blood Urea Nitrogen 10, Creatinine 0.7, Estimat Glomerular Filtration Rate > 60, Glucose Level 96, Calcium Level 8.0L Current Medications Medications (Trade) Dose Ordered Sig/Veronica Route PRN Reason Start Time Stop Time Status Last Admin Dose Admin Acetaminophen (Tylenol) 650 mg Q4H PRN ORAL fever 08/06/17 14:15 09/05/17 14:14 08/10/17 12:28 Docusate Sodium (Colace) 100 mg TWICE A DAY ORAL 08/06/17 18:00 09/05/17 17:59 08/12/17 08:24 Heparin Sodium (Porcine) (Heparin 5000 units/ml) 5,000 units EVERY 12 HOURS SUBQ 08/06/17 21:00 09/05/17 20:59 08/12/17 08:26 Iopamidol (Isovue-300 100ml) 100 ml NOW PRN INJ Radiology Procedure 08/10/17 13:15 08/12/17 13:12 Lansoprazole (Prevacid) 30 mg DAILY ORAL 08/10/17 09:00 09/09/17 08:59 08/12/17 08:24 Lorazepam (Ativan 2mg/ml 1ml) 1 mg Q4H PRN IV agitation 08/11/17 14:15 08/18/17 14:14 08/11/17 22:05 Metoclopramide HCl (Reglan) 10 mg Q6H PRN IVP REFRACTORY N/V 08/06/17 14:15 09/05/17 14:14 Morphine Sulfate (Morphine Sulfate) 2 mg Q4H PRN IVP Moderate Pain (Pain Scale 4-6) 08/08/17 14:15 08/13/17 14:14 08/10/17 18:05 Morphine Sulfate (Morphine Sulfate) 4 mg Q3H PRN IVP Severe Pain (Pain Scale 7-10) 08/10/17 21:45 08/15/17 13:29 08/12/17 06:37 Nitroglycerin (Ntg) 0.4 mg Q5M X 3 DOSES PRN SL Prn Chest Pain 08/06/17 14:15 09/05/17 14:14 Oxacillin Sodium 2 gm/Sodium Chloride 110 ml @ 220 mls/hr Q4H IVPB 08/10/17 14:00 08/17/17 13:59 08/12/17 06:37 Polyethylene Glycol (Miralax) 17 gm BEDTIME ORAL 08/06/17 21:00 09/05/17 20:59 08/11/17 22:03 Potassium Chloride (K-Dur) 20 meq DAILY ORAL 08/10/17 09:00 09/09/17 08:59 08/12/17 08:24 Temazepam (Restoril) 15 mg HSPRN PRN ORAL Insomnia 08/11/17 11:30 08/18/17 11:29 08/12/17 00:07 Abbey Powell MANAGER USER INTERFACE Aug 12, 2017 08:57
--- NOTE | 2017-08-12 09:04 | General Progress Note ---
Assessment/Plan Problem List: (1) Hepatitis C ICD Codes: B19.20 - Unspecified viral hepatitis C without hepatic coma SNOMED: 22099276 (2) Constipation ICD Codes: K59.00 - Constipation, unspecified SNOMED: 65118350 Qualifiers: Qualified Codes: K59.00 - Constipation, unspecified (3) Hyponatremia ICD Codes: E87.1 - Hypo-osmolality and hyponatremia SNOMED: 67403858 (4) Abdominal pain ICD Codes: R10.9 - Unspecified abdominal pain SNOMED: 98198998 Qualifiers: Qualified Codes: R10.32 - Left lower quadrant pain (5) HIV (human immunodeficiency virus infection) ICD Codes: B20 - Human immunodeficiency virus [HIV] disease SNOMED: 29934635 (6) Polysubstance (excluding opioids) dependence ICD Codes: F19.20 - Other psychoactive substance dependence, uncomplicated SNOMED: 55361187 (7) Pleural effusion ICD Codes: J90 - Pleural effusion, not elsewhere classified SNOMED: 24284130 Status: unchanged Assessment/Plan ot pt deit ivf goi neph f/u cbc bmp am Subjective Constitutional: Reports: weakness Allergies: Coded Allergies: No Known Allergies (Unverified , 08/06/17) All Systems: reviewed and negative except above Subjective o2nc bed sleepy calm Objective Last 24 Hour Vital Signs Date Time Temp Pulse Resp B/P (MAP) Pulse Ox O2 Delivery O2 Flow Rate FiO2 08/12/17 08:00 Room Air 08/12/17 08:00 98.0 99 19 125/66 95 98.0 08/12/17 04:00 98.9 99 18 126/68 93 Nasal Cannula 2.0 98.9 08/12/17 00:00 98.8 103 20 117/71 96 Nasal Cannula 2.0 93 98.8 08/11/17 20:00 97.9 77 19 112/60 93 Nasal Cannula 2.0 97.9 08/11/17 19:30 95 Nasal Cannula 2.0 28 08/11/17 19:30 Nasal Cannula 2.0 28 08/11/17 16:09 97.6 84 20 119/68 91 Nasal Cannula 2.0 97.6 08/11/17 12:08 97.7 89 20 123/70 92 Nasal Cannula 2.0 97.7 Intake and Output 08/11/17 08/12/17 19:00 07:00 Intake Total 2760 ml 400 ml Output Total 900 ml Balance 1860 ml 400 ml Intake Oral 2760 ml 180 ml IV Total 220 ml Output Urine Total 900 ml # Voids 3 Laboratory Tests 08/12/17 04:45: White Blood Count 17.0H, Red Blood Count 3.90L, Hemoglobin 11.6L, Hematocrit 34.4L, Mean Corpuscular Volume 88, Mean Corpuscular Hemoglobin 29.8, Mean Corpuscular Hemoglobin Concent 33.9, Red Cell Distribution Width 11.7, Platelet Count 272, Mean Platelet Volume 5.8L, Neutrophils (%) (Auto) 82.4H, Lymphocytes (%) (Auto) 10.4L, Monocytes (%) (Auto) 6.2, Eosinophils (%) (Auto) 0.4, Basophils (%) (Auto) 0.6, Sodium Level 127L, Potassium Level 4.0, Chloride Level 98, Carbon Dioxide Level 24, Anion Gap 5, Blood Urea Nitrogen 10, Creatinine 0.7, Estimat Glomerular Filtration Rate > 60, Glucose Level 96, Calcium Level 8.0L Height (Feet): 5 Height (Inches): 8.00 Weight (Pounds): 160 General Appearance: lethargic EENT: normal ENT inspection Neck: normal alignment Cardiovascular: normal peripheral pulses, normal rate, regular rhythm Respiratory/Chest: chest wall non-tender, decreased breath sounds Abdomen: normal bowel sounds, non tender, soft Extremities: normal inspection Edema: no edema noted Arm (L), no edema noted Arm (R), no edema noted Leg (L), no edema noted Leg (R), no edema noted Pedal (L), no edema noted Pedal (R), no edema noted Generalized Neurologic: motor weakness Skin: normal pigmentation, warm/dry Chemo Dietrich DO Aug 12, 2017 09:04
[2017-08-12] MEDS ORDERED: Morphine Sulfate 2mg/ml Inj IVP PRN (09:30)
[2017-08-12 12:00] VITALS: BP 116/62
[2017-08-12] MEDS ORDERED: NaCl 3% 500ml 500 ML IV SCH (12:00)
--- NOTE | 2017-08-12 12:41 | Nephrology Progress Note ---
Assessment/Plan Problem List: (1) Hyponatremia (2) HIV (human immunodeficiency virus infection) (3) COPD (chronic obstructive pulmonary disease) (4) Hepatitis C (5) Drug abuse and dependence (6) Hypoalbuminemia Assessment Sever HypoNatremia- na up to 131 HypoAlbuminemia HIV + Chronic Pain MultiDrug abuse: coccaine MJ Amphetamines Anemia COPD Hep C Plan po fluid restriction Trial of 3% saline and PRN Lasix monitor lytes K Mag Phos as needed DC planning? Subjective ROS Limited/Unobtainable: No Constitutional: Reports: malaise Objective Objective Last 24 Hour Vital Signs Date Time Temp Pulse Resp B/P (MAP) Pulse Ox O2 Delivery O2 Flow Rate FiO2 08/12/17 12:00 98.0 88 20 116/62 97 98.0 08/12/17 11:29 98.0 08/12/17 08:00 Room Air 08/12/17 08:00 98.0 99 19 125/66 95 98.0 08/12/17 04:00 98.9 99 18 126/68 93 Nasal Cannula 2.0 98.9 08/12/17 00:00 98.8 103 20 117/71 96 Nasal Cannula 2.0 93 98.8 08/11/17 20:00 97.9 77 19 112/60 93 Nasal Cannula 2.0 97.9 08/11/17 19:30 95 Nasal Cannula 2.0 28 08/11/17 19:30 Nasal Cannula 2.0 28 08/11/17 16:09 97.6 84 20 119/68 91 Nasal Cannula 2.0 97.6 Intake and Output 08/11/17 08/12/17 19:00 07:00 Intake Total 2760 ml 400 ml Output Total 900 ml Balance 1860 ml 400 ml Intake Oral 2760 ml 180 ml IV Total 220 ml Output Urine Total 900 ml # Voids 3 Laboratory Tests 08/12/17 04:45: White Blood Count 17.0H, Red Blood Count 3.90L, Hemoglobin 11.6L, Hematocrit 34.4L, Mean Corpuscular Volume 88, Mean Corpuscular Hemoglobin 29.8, Mean Corpuscular Hemoglobin Concent 33.9, Red Cell Distribution Width 11.7, Platelet Count 272, Mean Platelet Volume 5.8L, Neutrophils (%) (Auto) 82.4H, Lymphocytes (%) (Auto) 10.4L, Monocytes (%) (Auto) 6.2, Eosinophils (%) (Auto) 0.4, Basophils (%) (Auto) 0.6, Sodium Level 127L, Potassium Level 4.0, Chloride Level 98, Carbon Dioxide Level 24, Anion Gap 5, Blood Urea Nitrogen 10, Creatinine 0.7, Estimat Glomerular Filtration Rate > 60, Glucose Level 96, Calcium Level 8.0L Height (Feet): 5 Height (Inches): 8.00 Weight (Pounds): 160 General Appearance: no apparent distress Objective no change JAMI KRISHNAMURTHY Aug 12, 2017 12:41
--- NOTE | 2017-08-12 13:36 | Cardiology Progress Note ---
Assessment/Plan Status: stable Assessment/Plan HIV HEP C HTN Assessment COPD Asthma Constipation Hyponatemia Sepsis Pneumonia Plan Reviewed TTE - no evidence of endocarditis, valvular destruction/regurgitation, no evidence of septic emboli, He does not have osler node, septic pulmonary infarcts, ICH, conjunctival hemorrhages, janeway lesions He does have a hx of drug use, positive blood cultures, and fevers (albeit broke with antibiotics) , no IV drug use endorsed He has a moderate pre test probability of IE ( 1 major, 2 minor) My recommendations are if he has persistent fevers/blood cultures on antibiotics we should proceed with NURA to determine course of therapy He certainly does not need surgical intervention at this time. Hypertension controlled Constipation per GI Repeat blood cultures CT surgeon recommended exploratory left video-assisted thoracoscopic surgery, planned for Monday 08/14. supportive care outpatient GI procedure as per GI Continue NA restriction and 3% IVF per nephrology - SIADH, lasix prn PT/OT DVT GI prophylaxis Subjective Cardiovascular: Reports: no symptoms Respiratory: Reports: no symptoms Gastrointestinal/Abdominal: Reports: no symptoms Genitourinary: Reports: no symptoms Subjective No acute events, no complaints, hemodynamically stable, no chest pain Patient has positive cultures from 08/07 and 08/08, will need to order another set to determine if persistently positive on Abx Treat empirically for endocarditis until NURA done, TTE reassuming however Sodium continues to be low today Objective Last 24 Hour Vital Signs Date Time Temp Pulse Resp B/P (MAP) Pulse Ox O2 Delivery O2 Flow Rate FiO2 08/12/17 12:00 98.0 88 20 116/62 97 98.0 08/12/17 11:29 98.0 08/12/17 08:00 Room Air 08/12/17 08:00 98.0 99 19 125/66 95 98.0 08/12/17 04:00 98.9 99 18 126/68 93 Nasal Cannula 2.0 98.9 08/12/17 00:00 98.8 103 20 117/71 96 Nasal Cannula 2.0 93 98.8 08/11/17 20:00 97.9 77 19 112/60 93 Nasal Cannula 2.0 97.9 08/11/17 19:30 95 Nasal Cannula 2.0 28 08/11/17 19:30 Nasal Cannula 2.0 28 08/11/17 16:09 97.6 84 20 119/68 91 Nasal Cannula 2.0 97.6 General Appearance: no apparent distress EENT: PERRL/EOMI Neck: non-tender Rhythm: NSR Cardiovascular: normal peripheral pulses Respiratory/Chest: chest wall non-tender Abdomen: normal bowel sounds Neurologic: no motor/sensory deficits Intake and Output 08/11/17 08/12/17 19:00 07:00 Intake Total 2760 ml 400 ml Output Total 900 ml Balance 1860 ml 400 ml Intake Oral 2760 ml 180 ml IV Total 220 ml Output Urine Total 900 ml # Voids 3 Laboratory Tests Test 08/12/17 04:45 White Blood Count 17.0 K/UL (4.8-10.8) H Red Blood Count 3.90 M/UL (4.70-6.10) L Hemoglobin 11.6 G/DL (14.2-18.0) L Hematocrit 34.4 % (42.0-52.0) L Mean Corpuscular Volume 88 FL (80-99) Mean Corpuscular Hemoglobin 29.8 PG (27.0-31.0) Mean Corpuscular Hemoglobin Concent 33.9 G/DL (32.0-36.0) Red Cell Distribution Width 11.7 % (11.6-14.8) Platelet Count 272 K/UL (150-450) Mean Platelet Volume 5.8 FL (6.5-10.1) L Neutrophils (%) (Auto) 82.4 % (45.0-75.0) H Lymphocytes (%) (Auto) 10.4 % (20.0-45.0) L Monocytes (%) (Auto) 6.2 % (1.0-10.0) Eosinophils (%) (Auto) 0.4 % (0.0-3.0) Basophils (%) (Auto) 0.6 % (0.0-2.0) Sodium Level 127 MMOL/L (136-145) L Potassium Level 4.0 MMOL/L (3.5-5.1) Chloride Level 98 MMOL/L (98-107) Carbon Dioxide Level 24 MMOL/L (21-32) Anion Gap 5 mmol/L (5-15) Blood Urea Nitrogen 10 mg/dL (7-18) Creatinine 0.7 MG/DL (0.55-1.30) Estimat Glomerular Filtration Rate > 60 mL/min (>60) Glucose Level 96 MG/DL (74-106) Calcium Level 8.0 MG/DL (8.5-10.1) L Microbiology Date/Time Source Procedure Growth Status 08/11/17 10:35 Blood Blood Culture - Preliminary Resulted 08/10/17 19:40 Blood Blood Culture - Preliminary Resulted 08/10/17 19:20 Blood Blood Culture - Preliminary Resulted Murali Victoria M.D. Aug 12, 2017 13:36
[2017-08-12 15:51] VITALS: BP 116/63
[2017-08-12] MEDS: Miralax 17gm pkt ORAL SCH (20:32)
[2017-08-12 23:53] VITALS: BP 108/66
[2017-08-13] MEDS: Oxacillin 2 GM in NS 110 ML IVPB SCH ×6 (02:30→22:19)
[2017-08-13] MEDS: LORazepam Inj 2mg/ml 1ml IV PRN (02:44)
[2017-08-13 04:00] VITALS: BP 126/74
[2017-08-13 07:54] LABS: BASOPHILS % (AUTO) 0.5 % (0.0-2.0); EOSINOPHILS % (AUTO) 0.4 % (0.0-3.0); HEMATOCRIT 34.3 % (42.0-52.0); HEMOGLOBIN 11.8 G/DL (14.2-18.0); LYMPHOCYTES % (AUTO) 9.2 % (20.0-45.0); MEAN CORPUSCULAR VOLUME 88 FL (80-99); MONOCYTES % (AUTO) 5.7 % (1.0-10.0); NEUTROPHILS % (AUTO) 84.3 % (45.0-75.0); PLATELET COUNT 284 K/UL (150-450); RED CELL DISTRIBUTION WIDTH 11.8 % (11.6-14.8)
[2017-08-13 08:00] VITALS: BP 126/61
[2017-08-13 08:17] LABS: ANION GAP 8 mmol/L (5-15); BLOOD UREA NITROGEN 13 mg/dL (7-18); CALCIUM 7.4 MG/DL (8.5-10.1); CARBON DIOXIDE 28 MMOL/L (21-32); CHLORIDE 100 MMOL/L (98-107); CREATININE 0.8 MG/DL (0.55-1.30); POTASSIUM 3.9 MMOL/L (3.5-5.1); SODIUM 135 MMOL/L (136-145)
[2017-08-13 08:18] LABS: ALANINE AMINOTRANSFERASE 36 U/L (12-78); ALBUMIN 1.7 G/DL (3.4-5.0); ALKALINE PHOSPHATASE 97 U/L (46-116); ASPARTATE AMINO TRANSFERASE 30 U/L (15-37); BILIRUBIN,DIRECT 0.3 MG/DL (0.0-0.3); BILIRUBIN,TOTAL 0.5 MG/DL (0.2-1.0); PHOSPHORUS 3.9 MG/DL (2.5-4.9)
[2017-08-13] MEDS: Docusate 100mg cap ORAL SCH ×2 (08:52→17:10)
[2017-08-13] MEDS: Heparin 5000 units/ml inj SUBQ SCH ×2 (08:53→21:00)
[2017-08-13] MEDS: Morphine Sulfate 4mg/ml Inj IVP PRN ×3 (08:53→21:35)
--- NOTE | 2017-08-13 10:18 | GI Progress Note ---
Assessment/Plan Problems: (1) Polysubstance (excluding opioids) dependence ICD Codes: F19.20 - Other psychoactive substance dependence, uncomplicated SNOMED: 67980141 (2) Hepatitis C ICD Codes: B19.20 - Unspecified viral hepatitis C without hepatic coma SNOMED: 51545092 (3) Constipated ICD Codes: K59.00 - Constipation, unspecified SNOMED: 35205411 (4) Hyponatremia ICD Codes: E87.1 - Hypo-osmolality and hyponatremia SNOMED: 65244941 (5) HIV (human immunodeficiency virus infection) ICD Codes: B20 - Human immunodeficiency virus [HIV] disease SNOMED: 85252732 (6) Abdominal pain ICD Codes: R10.9 - Unspecified abdominal pain SNOMED: 86076060 Qualifiers: Qualified Codes: R10.32 - Left lower quadrant pain Status: stable Status Narrative Discussed with Dr. Lee. Assessment/Plan CT reviewed >> - Small left pleural effusion and left basilar atelectasis and possibly some consolidation - No definite acute abdominal or pelvic process - No CT evidence of significant constipation - Colonic diverticulosis. No evidence of diverticulitis - Mildly hypoattenuating liver, consistent with fatty change - prominent prostate, with nonspecific hypoattenuation HIV positive hep C antibody positive Utox positive for cocaine, MJ, amphetamines OB negative symptomatic treatment regular diet monitor H&H, prn transfusions bowel regime ppi fu labs outpatient GI procedures The patient was seen and examined at bedside and all new and available data was reviewed in the patients chart. I agree with the above findings, impression and plan. (Patient seen earlier today. Signature stamp does not reflect patient encounter time.). - Matthew Lee MD Subjective Subjective thirsty no abdominal pain Objective Last 24 Hour Vital Signs Date Time Temp Pulse Resp B/P (MAP) Pulse Ox O2 Delivery O2 Flow Rate FiO2 08/13/17 09:23 98.0 08/13/17 08:53 98.0 08/13/17 08:00 98.0 91 20 126/61 95 Nasal Cannula 2.0 98.0 08/13/17 04:00 98.1 93 22 126/74 93 Nasal Cannula 2.0 98.1 08/12/17 23:53 97.9 101 18 108/66 93 Nasal Cannula 2.0 97.9 08/12/17 20:13 Nasal Cannula 2.0 28 08/12/17 20:13 96 Nasal Cannula 2.0 28 08/12/17 20:00 99.3 98 19 93 Nasal Cannula 2.0 99.3 08/12/17 15:51 98.1 83 20 116/63 96 Nasal Cannula 2.0 98.1 08/12/17 12:00 Room Air 08/12/17 12:00 98.0 88 20 116/62 97 98.0 08/12/17 11:29 98.0 Intake and Output 08/12/17 08/13/17 19:00 07:00 Intake Total 550 ml 1100 ml Output Total 800 ml 1100 ml Balance -250 ml 0 ml Intake Oral 240 ml 300 ml IV Total 310 ml 800 ml Output Urine Total 800 ml 1100 ml # Voids 2 Laboratory Tests Test 08/13/17 06:45 White Blood Count 14.0 K/UL (4.8-10.8) H Red Blood Count 3.90 M/UL (4.70-6.10) L Hemoglobin 11.8 G/DL (14.2-18.0) L Hematocrit 34.3 % (42.0-52.0) L Mean Corpuscular Volume 88 FL (80-99) Mean Corpuscular Hemoglobin 30.4 PG (27.0-31.0) Mean Corpuscular Hemoglobin Concent 34.5 G/DL (32.0-36.0) Red Cell Distribution Width 11.8 % (11.6-14.8) Platelet Count 284 K/UL (150-450) Mean Platelet Volume 6.1 FL (6.5-10.1) L Neutrophils (%) (Auto) 84.3 % (45.0-75.0) H Lymphocytes (%) (Auto) 9.2 % (20.0-45.0) L Monocytes (%) (Auto) 5.7 % (1.0-10.0) Eosinophils (%) (Auto) 0.4 % (0.0-3.0) Basophils (%) (Auto) 0.5 % (0.0-2.0) Sodium Level 135 MMOL/L (136-145) L Potassium Level 3.9 MMOL/L (3.5-5.1) Chloride Level 100 MMOL/L (98-107) Carbon Dioxide Level 28 MMOL/L (21-32) Anion Gap 8 mmol/L (5-15) Blood Urea Nitrogen 13 mg/dL (7-18) Creatinine 0.8 MG/DL (0.55-1.30) Estimat Glomerular Filtration Rate > 60 mL/min (>60) Glucose Level 107 MG/DL (74-106) H Uric Acid 3.2 MG/DL (2.6-7.2) Calcium Level 7.4 MG/DL (8.5-10.1) L Phosphorus Level 3.9 MG/DL (2.5-4.9) Magnesium Level 2.1 MG/DL (1.8-2.4) Total Bilirubin 0.5 MG/DL (0.2-1.0) Direct Bilirubin 0.3 MG/DL (0.0-0.3) Aspartate Amino Transf (AST/SGOT) 30 U/L (15-37) Alanine Aminotransferase (ALT/SGPT) 36 U/L (12-78) Alkaline Phosphatase 97 U/L (46-116) Total Protein 6.9 G/DL (6.4-8.2) Albumin 1.7 G/DL (3.4-5.0) L Height (Feet): 5 Height (Inches): 8.00 Weight (Pounds): 160 General Appearance: WD/WN, no apparent distress, alert Cardiovascular: normal rate Respiratory/Chest: normal breath sounds, no respiratory distress Abdominal Exam: normal bowel sounds, non tender, soft Extremities: normal range of motion, non-tender Rupinder Armstrong NP Aug 13, 2017 10:18
--- NOTE | 2017-08-13 11:47 | General Progress Note ---
Assessment/Plan Problem List: (1) Hepatitis C ICD Codes: B19.20 - Unspecified viral hepatitis C without hepatic coma SNOMED: 41667688 (2) Constipation ICD Codes: K59.00 - Constipation, unspecified SNOMED: 31015817 Qualifiers: Qualified Codes: K59.00 - Constipation, unspecified (3) Hyponatremia ICD Codes: E87.1 - Hypo-osmolality and hyponatremia SNOMED: 03379982 (4) Abdominal pain ICD Codes: R10.9 - Unspecified abdominal pain SNOMED: 60620196 Qualifiers: Qualified Codes: R10.32 - Left lower quadrant pain (5) HIV (human immunodeficiency virus infection) ICD Codes: B20 - Human immunodeficiency virus [HIV] disease SNOMED: 04069209 (6) Polysubstance (excluding opioids) dependence ICD Codes: F19.20 - Other psychoactive substance dependence, uncomplicated SNOMED: 09500710 (7) Pleural effusion ICD Codes: J90 - Pleural effusion, not elsewhere classified SNOMED: 66988248 Status: unchanged Assessment/Plan ot pt diet abx ivf neph f/u cbc bmp am Subjective Constitutional: Reports: weakness Allergies: Coded Allergies: No Known Allergies (Unverified , 08/06/17) All Systems: reviewed and negative except above Subjective o2nc bed sleepy calm Objective Last 24 Hour Vital Signs Date Time Temp Pulse Resp B/P (MAP) Pulse Ox O2 Delivery O2 Flow Rate FiO2 08/13/17 09:23 98.0 08/13/17 08:53 98.0 08/13/17 08:00 98.0 91 20 126/61 95 Nasal Cannula 2.0 98.0 08/13/17 04:00 98.1 93 22 126/74 93 Nasal Cannula 2.0 98.1 08/12/17 23:53 97.9 101 18 108/66 93 Nasal Cannula 2.0 97.9 08/12/17 20:13 Nasal Cannula 2.0 28 08/12/17 20:13 96 Nasal Cannula 2.0 28 08/12/17 20:00 99.3 98 19 93 Nasal Cannula 2.0 99.3 08/12/17 15:51 98.1 83 20 116/63 96 Nasal Cannula 2.0 98.1 08/12/17 12:00 Room Air 08/12/17 12:00 98.0 88 20 116/62 97 98.0 Intake and Output 08/12/17 08/13/17 19:00 07:00 Intake Total 550 ml 1100 ml Output Total 800 ml 1100 ml Balance -250 ml 0 ml Intake Oral 240 ml 300 ml IV Total 310 ml 800 ml Output Urine Total 800 ml 1100 ml # Voids 2 Laboratory Tests 08/13/17 06:45: White Blood Count 14.0H, Red Blood Count 3.90L, Hemoglobin 11.8L, Hematocrit 34.3L, Mean Corpuscular Volume 88, Mean Corpuscular Hemoglobin 30.4, Mean Corpuscular Hemoglobin Concent 34.5, Red Cell Distribution Width 11.8, Platelet Count 284, Mean Platelet Volume 6.1L, Neutrophils (%) (Auto) 84.3H, Lymphocytes (%) (Auto) 9.2L, Monocytes (%) (Auto) 5.7, Eosinophils (%) (Auto) 0.4, Basophils (%) (Auto) 0.5, Sodium Level 135L, Potassium Level 3.9, Chloride Level 100, Carbon Dioxide Level 28, Anion Gap 8, Blood Urea Nitrogen 13, Creatinine 0.8, Estimat Glomerular Filtration Rate > 60, Glucose Level 107H, Uric Acid 3.2, Calcium Level 7.4L, Phosphorus Level 3.9, Magnesium Level 2.1, Total Bilirubin 0.5, Direct Bilirubin 0.3, Aspartate Amino Transf (AST/SGOT) 30 , Alanine Aminotransferase (ALT/SGPT) 36, Alkaline Phosphatase 97, Total Protein 6.9, Albumin 1.7L Height (Feet): 5 Height (Inches): 8.00 Weight (Pounds): 160 General Appearance: lethargic EENT: normal ENT inspection Neck: normal alignment Cardiovascular: normal peripheral pulses, normal rate, regular rhythm Respiratory/Chest: chest wall non-tender, decreased breath sounds Abdomen: normal bowel sounds, non tender, soft Extremities: normal inspection Edema: no edema noted Arm (L), no edema noted Arm (R), no edema noted Leg (L), no edema noted Leg (R), no edema noted Pedal (L), no edema noted Pedal (R), no edema noted Generalized Neurologic: motor weakness Skin: normal pigmentation, warm/dry Chemo Dietrich DO Aug 13, 2017 11:47
[2017-08-13 12:00] VITALS: BP 108/62
--- NOTE | 2017-08-13 12:09 | Diagnostic Imaging Report ---
Indication: Dyspnea Comparison: 08/06/2017 A single view chest radiograph was obtained. Findings: Patchy airspace disease noted bilaterally. Heart size is normal. There are small bilateral effusions. IMPRESSION: Development of bilateral infiltrates
--- NOTE | 2017-08-13 13:09 | Cardiology Report ---
APPROVED REPORT EXAM: Two-dimensional and M-mode echocardiogram with Doppler and color Doppler. INDICATION [employer] M-Mode DIMENSIONS IVSd1.2 (0.7-1.1cm)Left Atrium (MM)2.9 (1.6-4.0cm) LVDd3.5 (3.5-5.6cm)Aortic Root2.4 (2.0-3.7cm) PWd0.9 (0.7-1.1cm)Aortic Cusp Exc.1.5 (1.5-2.0cm) LVDs1.9 (2.5-4.0cm) PWs1.5 cm Technically difficult study due to poor acoustic windows. Study quality precludes accurate assessment of regional wall motion. Normal left ventricular chamber size, systolic function and wall motion. Left ventricular ejection fraction estimated to be 65 %. Mild left ventricular hypertrophy. Anterior Echo-free space, may be due to pericardial fat or effusion. All other cardiac chamber sizes are within normal limits. Mild focal aortic valve sclerosis with adequate cusp excursion. Mildly thickened mitral valve leaflets with normal excursion. Mild mitral annulus and aortic root calcification. Pulmonic valve not visualized. Normal tricuspid valve structure. IVC dilated at 2.1 cm with physiologic collapse suggestive of increased RA pressure. No discrete vegitations seen. A color flow and spectral Doppler study was performed and revealed: No aortic regurgitation. Peak aortic valve gradient of 18 mmHg and a mean of 11 mmHg. Aortic valve area 1.5 cm2 calculated by continuity equation. No mitral regurgitation. Mitral diastolic velocities suggest mild LV diastolic dysfunction (Grade I ). Trace tricuspid regurgitation. Tricuspid systolic velocities suggests peak right ventricular systolic pressure of 40 mmHg, consistent with mild pulmonary hypertension.
--- NOTE | 2017-08-13 13:24 | Nephrology Progress Note ---
Assessment/Plan Problem List: (1) Hyponatremia (2) HIV (human immunodeficiency virus infection) (3) COPD (chronic obstructive pulmonary disease) (4) Hepatitis C (5) Drug abuse and dependence (6) Hypoalbuminemia Assessment Sever HypoNatremia- na up to 135 HypoAlbuminemia HIV + Chronic Pain MultiDrug abuse: coccaine MJ Amphetamines Anemia COPD Hep C Plan po fluid restriction Trial of 3% saline and PRN Lasix monitor lytes K Mag Phos as needed per pulmonary Subjective ROS Limited/Unobtainable: No Constitutional: Reports: malaise Objective Objective Last 24 Hour Vital Signs Date Time Temp Pulse Resp B/P (MAP) Pulse Ox O2 Delivery O2 Flow Rate FiO2 08/13/17 13:17 97.8 08/13/17 12:00 97.8 89 20 108/62 97 Nasal Cannula 2.0 97.8 08/13/17 09:23 98.0 08/13/17 08:53 98.0 08/13/17 08:00 98.0 91 20 126/61 95 Nasal Cannula 2.0 98.0 08/13/17 04:00 98.1 93 22 126/74 93 Nasal Cannula 2.0 98.1 08/12/17 23:53 97.9 101 18 108/66 93 Nasal Cannula 2.0 97.9 08/12/17 20:13 Nasal Cannula 2.0 28 08/12/17 20:13 96 Nasal Cannula 2.0 28 08/12/17 20:00 99.3 98 19 93 Nasal Cannula 2.0 99.3 08/12/17 15:51 98.1 83 20 116/63 96 Nasal Cannula 2.0 98.1 Intake and Output 08/12/17 08/13/17 19:00 07:00 Intake Total 550 ml 1100 ml Output Total 800 ml 1100 ml Balance -250 ml 0 ml Intake Oral 240 ml 300 ml IV Total 310 ml 800 ml Output Urine Total 800 ml 1100 ml # Voids 2 Current Medications Medications (Trade) Dose Ordered Sig/Veronica Route PRN Reason Start Time Stop Time Status Last Admin Dose Admin Acetaminophen (Tylenol) 650 mg Q4H PRN ORAL fever 08/06/17 14:15 09/05/17 14:14 08/10/17 12:28 Docusate Sodium (Colace) 100 mg TWICE A DAY ORAL 08/06/17 18:00 09/05/17 17:59 08/13/17 08:52 Furosemide (Lasix) 20 mg Q8HR IV 08/12/17 14:00 09/11/17 13:59 08/13/17 13:17 Heparin Sodium (Porcine) (Heparin 5000 units/ml) 5,000 units EVERY 12 HOURS SUBQ 08/06/17 21:00 09/05/17 20:59 08/12/17 20:32 Lansoprazole (Prevacid) 30 mg DAILY ORAL 08/10/17 09:00 09/09/17 08:59 08/13/17 08:52 Lorazepam (Ativan 2mg/ml 1ml) 1 mg Q4H PRN IV agitation 08/11/17 14:15 08/18/17 14:14 08/13/17 02:44 Metoclopramide HCl (Reglan) 10 mg Q6H PRN IVP REFRACTORY N/V 08/06/17 14:15 09/05/17 14:14 Morphine Sulfate (Morphine Sulfate) 2 mg Q4H PRN IVP Moderate Pain (Pain Scale 4-6) 08/12/17 09:30 08/17/17 09:29 08/12/17 10:59 Morphine Sulfate (Morphine Sulfate) 4 mg Q3H PRN IVP Severe Pain (Pain Scale 7-10) 08/10/17 21:45 08/15/17 13:29 08/13/17 13:17 Nitroglycerin (Ntg) 0.4 mg Q5M X 3 DOSES PRN SL Prn Chest Pain 08/06/17 14:15 09/05/17 14:14 Oxacillin Sodium 2 gm/Sodium Chloride 110 ml @ 220 mls/hr Q4H IVPB 08/10/17 14:00 08/17/17 13:59 08/13/17 10:13 Polyethylene Glycol (Miralax) 17 gm BEDTIME ORAL 08/06/17 21:00 09/05/17 20:59 08/12/17 20:32 Potassium Chloride (K-Dur) 20 meq DAILY ORAL 08/10/17 09:00 09/09/17 08:59 08/13/17 08:52 Temazepam (Restoril) 15 mg HSPRN PRN ORAL Insomnia 08/11/17 11:30 08/18/17 11:29 08/12/17 23:33 Laboratory Tests 08/13/17 06:45: White Blood Count 14.0H, Red Blood Count 3.90L, Hemoglobin 11.8L, Hematocrit 34.3L, Mean Corpuscular Volume 88, Mean Corpuscular Hemoglobin 30.4, Mean Corpuscular Hemoglobin Concent 34.5, Red Cell Distribution Width 11.8, Platelet Count 284, Mean Platelet Volume 6.1L, Neutrophils (%) (Auto) 84.3H, Lymphocytes (%) (Auto) 9.2L, Monocytes (%) (Auto) 5.7, Eosinophils (%) (Auto) 0.4, Basophils (%) (Auto) 0.5, Sodium Level 135L, Potassium Level 3.9, Chloride Level 100, Carbon Dioxide Level 28, Anion Gap 8, Blood Urea Nitrogen 13, Creatinine 0.8, Estimat Glomerular Filtration Rate > 60, Glucose Level 107H, Uric Acid 3.2, Calcium Level 7.4L, Phosphorus Level 3.9, Magnesium Level 2.1, Total Bilirubin 0.5, Direct Bilirubin 0.3, Aspartate Amino Transf (AST/SGOT) 30 , Alanine Aminotransferase (ALT/SGPT) 36, Alkaline Phosphatase 97, Total Protein 6.9, Albumin 1.7L Height (Feet): 5 Height (Inches): 8.00 Weight (Pounds): 160 General Appearance: no apparent distress Cardiovascular: tachycardia Respiratory/Chest: decreased breath sounds Abdomen: distended Objective no change JAMI KRISHNAMURTHY Aug 13, 2017 13:24
--- NOTE | 2017-08-13 13:41 | Pulmonology Progress Note ---
Assessment/Plan Problems: (1) Pleural effusion (2) Abdominal pain (3) Constipation (4) Hyponatremia (5) COPD (chronic obstructive pulmonary disease) (6) Hepatitis C (7) HIV (human immunodeficiency virus infection) Assessment/Plan thoracic to evaluate, for surgery in am BC positive for GPC , stap aureaus laxative, GI evaluation appreciated respiratory treatment Hyponatremia w/u HIV studies, Hep C positive titrate fio2 to sat of 92% ID evaluation appreciated Subjective ROS Limited/Unobtainable: No Allergies: Coded Allergies: No Known Allergies (Unverified , 08/06/17) Objective Last 24 Hour Vital Signs Date Time Temp Pulse Resp B/P (MAP) Pulse Ox O2 Delivery O2 Flow Rate FiO2 08/13/17 13:17 97.8 08/13/17 12:00 97.8 89 20 108/62 97 Nasal Cannula 2.0 97.8 08/13/17 09:23 98.0 08/13/17 08:53 98.0 08/13/17 08:00 98.0 91 20 126/61 95 Nasal Cannula 2.0 98.0 08/13/17 04:00 98.1 93 22 126/74 93 Nasal Cannula 2.0 98.1 08/12/17 23:53 97.9 101 18 108/66 93 Nasal Cannula 2.0 97.9 08/12/17 20:13 Nasal Cannula 2.0 28 08/12/17 20:13 96 Nasal Cannula 2.0 28 08/12/17 20:00 99.3 98 19 93 Nasal Cannula 2.0 99.3 08/12/17 15:51 98.1 83 20 116/63 96 Nasal Cannula 2.0 98.1 Intake and Output 08/12/17 08/13/17 19:00 07:00 Intake Total 550 ml 1100 ml Output Total 800 ml 1100 ml Balance -250 ml 0 ml Intake Oral 240 ml 300 ml IV Total 310 ml 800 ml Output Urine Total 800 ml 1100 ml # Voids 2 General Appearance: WD/WN Respiratory/Chest: chest wall non-tender, lungs clear Cardiovascular: normal peripheral pulses, normal rate Abdomen: normal bowel sounds, soft, non tender Genitourinary: normal external genitalia 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 Microbiology Date/Time Source Procedure Growth Status 08/11/17 10:45 Blood Blood Culture - Preliminary Staphylococcus Aureus Resulted 08/11/17 10:35 Blood Blood Culture - Preliminary Staphylococcus Aureus Resulted 08/10/17 19:40 Blood Blood Culture - Preliminary Staphylococcus Aureus Resulted 08/10/17 19:20 Blood Blood Culture - Preliminary Staphylococcus Aureus Resulted Laboratory Tests 08/13/17 06:45: White Blood Count 14.0H, Red Blood Count 3.90L, Hemoglobin 11.8L, Hematocrit 34.3L, Mean Corpuscular Volume 88, Mean Corpuscular Hemoglobin 30.4, Mean Corpuscular Hemoglobin Concent 34.5, Red Cell Distribution Width 11.8, Platelet Count 284, Mean Platelet Volume 6.1L, Neutrophils (%) (Auto) 84.3H, Lymphocytes (%) (Auto) 9.2L, Monocytes (%) (Auto) 5.7, Eosinophils (%) (Auto) 0.4, Basophils (%) (Auto) 0.5, Sodium Level 135L, Potassium Level 3.9, Chloride Level 100, Carbon Dioxide Level 28, Anion Gap 8, Blood Urea Nitrogen 13, Creatinine 0.8, Estimat Glomerular Filtration Rate > 60, Glucose Level 107H, Uric Acid 3.2, Calcium Level 7.4L, Phosphorus Level 3.9, Magnesium Level 2.1, Total Bilirubin 0.5, Direct Bilirubin 0.3, Aspartate Amino Transf (AST/SGOT) 30 , Alanine Aminotransferase (ALT/SGPT) 36, Alkaline Phosphatase 97, Total Protein 6.9, Albumin 1.7L Current Medications Medications (Trade) Dose Ordered Sig/Veronica Route PRN Reason Start Time Stop Time Status Last Admin Dose Admin Acetaminophen (Tylenol) 650 mg Q4H PRN ORAL fever 08/06/17 14:15 09/05/17 14:14 08/10/17 12:28 Docusate Sodium (Colace) 100 mg TWICE A DAY ORAL 08/06/17 18:00 09/05/17 17:59 08/13/17 08:52 Furosemide (Lasix) 20 mg Q8HR IV 08/12/17 14:00 09/11/17 13:59 08/13/17 13:17 Heparin Sodium (Porcine) (Heparin 5000 units/ml) 5,000 units EVERY 12 HOURS SUBQ 08/06/17 21:00 09/05/17 20:59 08/12/17 20:32 Lansoprazole (Prevacid) 30 mg DAILY ORAL 08/10/17 09:00 09/09/17 08:59 08/13/17 08:52 Lorazepam (Ativan 2mg/ml 1ml) 1 mg Q4H PRN IV agitation 08/11/17 14:15 08/18/17 14:14 08/13/17 02:44 Metoclopramide HCl (Reglan) 10 mg Q6H PRN IVP REFRACTORY N/V 08/06/17 14:15 09/05/17 14:14 Morphine Sulfate (Morphine Sulfate) 2 mg Q4H PRN IVP Moderate Pain (Pain Scale 4-6) 08/12/17 09:30 08/17/17 09:29 08/12/17 10:59 Morphine Sulfate (Morphine Sulfate) 4 mg Q3H PRN IVP Severe Pain (Pain Scale 7-10) 08/10/17 21:45 08/15/17 13:29 08/13/17 13:17 Nitroglycerin (Ntg) 0.4 mg Q5M X 3 DOSES PRN SL Prn Chest Pain 08/06/17 14:15 09/05/17 14:14 Oxacillin Sodium 2 gm/Sodium Chloride 110 ml @ 220 mls/hr Q4H IVPB 08/10/17 14:00 08/17/17 13:59 08/13/17 10:13 Polyethylene Glycol (Miralax) 17 gm BEDTIME ORAL 08/06/17 21:00 09/05/17 20:59 08/12/17 20:32 Potassium Chloride (K-Dur) 20 meq DAILY ORAL 08/10/17 09:00 09/09/17 08:59 08/13/17 08:52 Temazepam (Restoril) 15 mg HSPRN PRN ORAL Insomnia 08/11/17 11:30 08/18/17 11:29 08/12/17 23:33 Sally Cox MD Aug 13, 2017 13:41
--- NOTE | 2017-08-13 14:47 | Anethesia Preoperative Eval ---
Anesthesia Pre-op PMH/ROS General Date of Evaluation: Aug 13, 2017 Time of Evaluation: 14:30 Anesthesiologist: Giuseppe ASA Score: ASA 3 Mallampati Score Class I : Soft palate, uvula, fauces, pillars visible Class II: Soft palate, uvula, fauces visible Class III: Soft palate, base of uvula visible Class IV: Only hard plate visible Mallampati Classification: Class II Surgeon: Cornelio Diagnosis: L pleural effusion Surgical Procedure: Bronchoscopy L VATS Anesthesia History: none Social History: current smoker, alcohol use - h/o heavy drinking, drug use - cocaine meth, canabiod Family History: no anesthesia problems Allergies: Coded Allergies: No Known Allergies (Unverified , 08/06/17) Past Medical History Cardiovascular: Denies: HTN, CAD, FL, valve dz, arrhythmia, other Pulmonary: Reports: asthma, COPD - mild SOB at rest Gastrointestinal/Genitourinary: Reports: GERD, other - hyponatrimea; Denies: CRI, ESRD Neurologic/Psychiatric: Reports: depression/anxiety; Denies: dementia, CVA, TIA, other Endocrine: Reports: other - ADH hypersecrition; Denies: DM, hypothyroidism, steroids HEENT: Denies: cataract (L), cataract (R), glaucoma, AMBLER (L), AMBLER (R), other Hematology/Immune: Reports: anemia - mild, bleeding disorder - borderline thrombocytopenia, other - HIV-AIDS Hep C; Denies: DVT Musculoskeletal/Integumentary: Reports: other - R knee deformity s/p Sx; Denies: OA, RA, DJD, DDD, edema Other: other - malnouruished PMH Narrative: Admitted with fewer and chills hyponatremia, chronic cough, mild SOB Diagnosed with L LL consolidation possible empyema. HIV-AIDS Hep C positive h/o multidrug abuse. Bacteremia without definite source PSxH Narrative: Bilateral knee Sx, R elbow ORIF Anesthesia Pre-op Phys. Exam Physician Exam Last Vital Signs Date Time Temp Pulse Resp B/P (MAP) Pulse Ox O2 Delivery O2 Flow Rate FiO2 08/13/17 13:47 97.8 08/13/17 12:00 89 20 108/62 97 Nasal Cannula 2.0 08/12/17 20:13 28 Constitutional: NAD Neurologic: CN 2-12 intact Cardiovascular: RRR Respiratory: other - mild dyspnea at rest, dullness over LLL diminished breath sounds, some cracles and rhails Gastrointestinal: S/NT/ND Airway Exam Mallampati Score: Class II MO: limited Neck: stiff ROM: limited Teeth: missing Dentures: no upper, no lower Anesthesia Pre-op A/P Labs Hematology Test 08/13/17 06:45 White Blood Count 14.0 K/UL (4.8-10.8) H Red Blood Count 3.90 M/UL (4.70-6.10) L Hemoglobin 11.8 G/DL (14.2-18.0) L Hematocrit 34.3 % (42.0-52.0) L Mean Corpuscular Volume 88 FL (80-99) Mean Corpuscular Hemoglobin 30.4 PG (27.0-31.0) Mean Corpuscular Hemoglobin Concent 34.5 G/DL (32.0-36.0) Red Cell Distribution Width 11.8 % (11.6-14.8) Platelet Count 284 K/UL (150-450) Mean Platelet Volume 6.1 FL (6.5-10.1) L Neutrophils (%) (Auto) 84.3 % (45.0-75.0) H Lymphocytes (%) (Auto) 9.2 % (20.0-45.0) L Monocytes (%) (Auto) 5.7 % (1.0-10.0) Eosinophils (%) (Auto) 0.4 % (0.0-3.0) Basophils (%) (Auto) 0.5 % (0.0-2.0) Chemistry Test 08/13/17 06:45 Sodium Level 135 MMOL/L (136-145) L Potassium Level 3.9 MMOL/L (3.5-5.1) Chloride Level 100 MMOL/L (98-107) Carbon Dioxide Level 28 MMOL/L (21-32) Anion Gap 8 mmol/L (5-15) Blood Urea Nitrogen 13 mg/dL (7-18) Creatinine 0.8 MG/DL (0.55-1.30) Estimat Glomerular Filtration Rate > 60 mL/min (>60) Glucose Level 107 MG/DL (74-106) H Uric Acid 3.2 MG/DL (2.6-7.2) Calcium Level 7.4 MG/DL (8.5-10.1) L Phosphorus Level 3.9 MG/DL (2.5-4.9) Magnesium Level 2.1 MG/DL (1.8-2.4) Total Bilirubin 0.5 MG/DL (0.2-1.0) Direct Bilirubin 0.3 MG/DL (0.0-0.3) Aspartate Amino Transf (AST/SGOT) 30 U/L (15-37) Alanine Aminotransferase (ALT/SGPT) 36 U/L (12-78) Alkaline Phosphatase 97 U/L (46-116) Total Protein 6.9 G/DL (6.4-8.2) Albumin 1.7 G/DL (3.4-5.0) L Risk Assessment & Plan Assessment: ASA 3 for HIV-AIDS COPD acute bacteremia Plan: GA double lumen tube with L lung isolation, possible central line and a-line placement, ICU care postoperatively, possible respiratory support Status Change Before Surgery: No Pre-Antibiotics Drug: as scheduled Andrew Chin MD Aug 13, 2017 14:47
[2017-08-13 16:00] VITALS: BP 105/60
--- NOTE | 2017-08-13 17:29 | Cardiology Progress Note ---
Assessment/Plan Status: stable Assessment/Plan HIV HEP C HTN Assessment COPD Asthma Constipation Hyponatemia Sepsis Pneumonia Plan Reviewed TTE - no evidence of endocarditis, valvular destruction/regurgitation, no evidence of septic emboli, He does not have osler node, septic pulmonary infarcts, ICH, conjunctival hemorrhages, janeway lesions He does have a hx of drug use, positive blood cultures, and fevers (albeit broke with antibiotics) , and hx of IV drug use He has a moderate pre test probability of IE ( 1 major, 2 minor) My recommendations are if he has persistent fevers/blood cultures on antibiotics we should proceed with NURA to determine course of therapy, until NURA is done treat as if he has endocarditis since he has persistent positive cultures. If his cultures do not clear he may need surgery, nothing seen on TTE , may opt to re check until NURA is done Hypertension controlled Constipation per GI Repeat blood cultures until clear CT surgeon recommended exploratory left video-assisted thoracoscopic surgery, planned for Monday 08/14. supportive care outpatient GI procedure as per GI Continue NA restriction and 3% IVF per nephrology - SIADH, lasix prn - NA improved PT/OT DVT GI prophylaxis Subjective Cardiovascular: Reports: no symptoms Respiratory: Reports: no symptoms Gastrointestinal/Abdominal: Reports: no symptoms Genitourinary: Reports: no symptoms Subjective No acute events, no complaints, hemodynamically stable, no chest pain Blood cultures persistently positive and WBC elevated NA improved Patient has positive cultures from 08/07 and 08/08 as well Treat empirically for endocarditis until NURA done, Sodium improved Plan for VATS tomorrow Objective Last 24 Hour Vital Signs Date Time Temp Pulse Resp B/P (MAP) Pulse Ox O2 Delivery O2 Flow Rate FiO2 08/13/17 16:00 98.0 87 20 105/60 98 Nasal Cannula 2.0 98.0 08/13/17 13:47 97.8 08/13/17 13:17 97.8 08/13/17 12:00 97.8 89 20 108/62 97 Nasal Cannula 2.0 97.8 08/13/17 08:53 98.0 08/13/17 08:00 98.0 91 20 126/61 95 Nasal Cannula 2.0 98.0 08/13/17 04:00 98.1 93 22 126/74 93 Nasal Cannula 2.0 98.1 08/12/17 23:53 97.9 101 18 108/66 93 Nasal Cannula 2.0 97.9 08/12/17 20:13 Nasal Cannula 2.0 28 08/12/17 20:13 96 Nasal Cannula 2.0 28 08/12/17 20:00 99.3 98 19 93 Nasal Cannula 2.0 99.3 General Appearance: no apparent distress EENT: PERRL/EOMI Neck: non-tender Rhythm: NSR Cardiovascular: normal peripheral pulses Respiratory/Chest: chest wall non-tender Abdomen: normal bowel sounds Extremities: normal range of motion Neurologic: audiology assistant II-XII grossly normal Intake and Output 08/12/17 08/13/17 19:00 07:00 Intake Total 550 ml 1100 ml Output Total 800 ml 1100 ml Balance -250 ml 0 ml Intake Oral 240 ml 300 ml IV Total 310 ml 800 ml Output Urine Total 800 ml 1100 ml # Voids 2 Laboratory Tests Test 08/13/17 06:45 White Blood Count 14.0 K/UL (4.8-10.8) H Red Blood Count 3.90 M/UL (4.70-6.10) L Hemoglobin 11.8 G/DL (14.2-18.0) L Hematocrit 34.3 % (42.0-52.0) L Mean Corpuscular Volume 88 FL (80-99) Mean Corpuscular Hemoglobin 30.4 PG (27.0-31.0) Mean Corpuscular Hemoglobin Concent 34.5 G/DL (32.0-36.0) Red Cell Distribution Width 11.8 % (11.6-14.8) Platelet Count 284 K/UL (150-450) Mean Platelet Volume 6.1 FL (6.5-10.1) L Neutrophils (%) (Auto) 84.3 % (45.0-75.0) H Lymphocytes (%) (Auto) 9.2 % (20.0-45.0) L Monocytes (%) (Auto) 5.7 % (1.0-10.0) Eosinophils (%) (Auto) 0.4 % (0.0-3.0) Basophils (%) (Auto) 0.5 % (0.0-2.0) Sodium Level 135 MMOL/L (136-145) L Potassium Level 3.9 MMOL/L (3.5-5.1) Chloride Level 100 MMOL/L (98-107) Carbon Dioxide Level 28 MMOL/L (21-32) Anion Gap 8 mmol/L (5-15) Blood Urea Nitrogen 13 mg/dL (7-18) Creatinine 0.8 MG/DL (0.55-1.30) Estimat Glomerular Filtration Rate > 60 mL/min (>60) Glucose Level 107 MG/DL (74-106) H Uric Acid 3.2 MG/DL (2.6-7.2) Calcium Level 7.4 MG/DL (8.5-10.1) L Phosphorus Level 3.9 MG/DL (2.5-4.9) Magnesium Level 2.1 MG/DL (1.8-2.4) Total Bilirubin 0.5 MG/DL (0.2-1.0) Direct Bilirubin 0.3 MG/DL (0.0-0.3) Aspartate Amino Transf (AST/SGOT) 30 U/L (15-37) Alanine Aminotransferase (ALT/SGPT) 36 U/L (12-78) Alkaline Phosphatase 97 U/L (46-116) Total Protein 6.9 G/DL (6.4-8.2) Albumin 1.7 G/DL (3.4-5.0) L Microbiology Date/Time Source Procedure Growth Status 08/11/17 10:45 Blood Blood Culture - Preliminary Staphylococcus Aureus Resulted 08/11/17 10:35 Blood Blood Culture - Preliminary Staphylococcus Aureus Resulted 08/10/17 19:40 Blood Blood Culture - Preliminary Staphylococcus Aureus Resulted 08/10/17 19:20 Blood Blood Culture - Preliminary Staphylococcus Aureus Resulted Murali Victoria M.D. Aug 13, 2017 17:29
--- NOTE | 2017-08-13 19:19 | Infectious Diseases Prog Note ---
Assessment/Plan Assessment/Plan Assessment: Persistent MSSA Bacteremia- likely 2ry to empyema. Ro endocarditis (high risk) Empyema 08/10-CT chest Left pleural effusion. Scalloped appearance suggests loculation. Presence of gas bubbles suggest infection by gas-forming organism. Gas bubbles appear trapped within the fluid rather than floating nondependently , indicating the fluid may be highly viscous. -r/o R lateral chest wall seeding as patient c/o severe pain in the area Sepsis -08/07 Bcx / MSSA; 08/08 4/+; 08/10 2/4 +; 08/11 2/+; 08/13 p -CXR no acute disease -sp cx Normal respiratory mati Fever, SP Leukocytosis, improving Polysubstance abuse- refers last IVDA was ~7 yrs ago -UDS +THC, cocaine and amphetamines HIV - non progressor- per patient, never on Tx and CD4 >500 and UD VL -CD4 510 (39.2%), VL ND Hep C s/p tx (20 years ago) with sustained virologic response COPD/asthma tobacco abuse (stopped smoking 3d [employer]) Constipation -CT abd/p w/: Small left pleural effusion and left basilar atelectasis and possibly some consolidation. No definite acute abdominal or pelvic process. No CT evidence of significant constipation. Colonic diverticulosis. No evidence of diverticulitis. Mildly hypoattenuating liver, consistent with fatty change. 5 mm fat attenuation nodule is seen within the left adrenal. Prominent prostate, with nonspecific hypoattenuation. Subcentimeter low-attenuation left renal lesion, too small to characterize, most likely benign simple cysts. No further follow-up necessary Plan: - Cont IV Oxacillin ( AB Rx d# ) for MSSA bacteremia -08/10 SP Ceftriaxone d# 5 and IV Vancomycin #3 -08/06 SP Cefepime x1, Levaquin x1 -monitor LFTs -f/u Bcx x2 (last 08/13) -NURA to eval for endocarditis (high suspicion and to eval for perivalvular abscess) -For VATs tomorrow -please send tissue for bacterial, fungal, AFB and pathology -Monitor CBC/BMP, temperatures -aspiration precautions Subjective Allergies: Coded Allergies: No Known Allergies (Unverified , 08/06/17) Subjective afebrile in 72hrs WBC improving remains bacteremic for VATs tomorrow Objective Vital Signs Last 24 Hour Vital Signs Date Time Temp Pulse Resp B/P (MAP) Pulse Ox O2 Delivery O2 Flow Rate FiO2 08/13/17 16:00 98.0 87 20 105/60 98 Nasal Cannula 2.0 98.0 08/13/17 13:47 97.8 08/13/17 13:17 97.8 08/13/17 12:00 97.8 89 20 108/62 97 Nasal Cannula 2.0 97.8 08/13/17 08:53 98.0 08/13/17 08:00 98.0 91 20 126/61 95 Nasal Cannula 2.0 98.0 08/13/17 04:00 98.1 93 22 126/74 93 Nasal Cannula 2.0 98.1 08/12/17 23:53 97.9 101 18 108/66 93 Nasal Cannula 2.0 97.9 08/12/17 20:13 Nasal Cannula 2.0 28 08/12/17 20:13 96 Nasal Cannula 2.0 28 08/12/17 20:00 99.3 98 19 93 Nasal Cannula 2.0 99.3 Height (Feet): 5 Height (Inches): 8.00 Weight (Pounds): 160 Objective General Appearance: WD/WN HEENT: atraumatic Respiratory/Chest: chest wall non-tender, lungs clear Cardiovascular: normal peripheral pulses, normal rate Abdomen: normal bowel sounds, soft, non tender Skin: no rash Microbiology Date/Time Source Procedure Growth Status 08/11/17 10:45 Blood Blood Culture - Preliminary Staphylococcus Aureus Resulted 08/11/17 10:35 Blood Blood Culture - Preliminary Staphylococcus Aureus Resulted 08/10/17 19:40 Blood Blood Culture - Preliminary Staphylococcus Aureus Resulted 08/10/17 19:20 Blood Blood Culture - Preliminary Staphylococcus Aureus Resulted Laboratory Tests Test 08/13/17 06:45 White Blood Count 14.0 K/UL (4.8-10.8) H Red Blood Count 3.90 M/UL (4.70-6.10) L Hemoglobin 11.8 G/DL (14.2-18.0) L Hematocrit 34.3 % (42.0-52.0) L Mean Corpuscular Volume 88 FL (80-99) Mean Corpuscular Hemoglobin 30.4 PG (27.0-31.0) Mean Corpuscular Hemoglobin Concent 34.5 G/DL (32.0-36.0) Red Cell Distribution Width 11.8 % (11.6-14.8) Platelet Count 284 K/UL (150-450) Mean Platelet Volume 6.1 FL (6.5-10.1) L Neutrophils (%) (Auto) 84.3 % (45.0-75.0) H Lymphocytes (%) (Auto) 9.2 % (20.0-45.0) L Monocytes (%) (Auto) 5.7 % (1.0-10.0) Eosinophils (%) (Auto) 0.4 % (0.0-3.0) Basophils (%) (Auto) 0.5 % (0.0-2.0) Sodium Level 135 MMOL/L (136-145) L Potassium Level 3.9 MMOL/L (3.5-5.1) Chloride Level 100 MMOL/L (98-107) Carbon Dioxide Level 28 MMOL/L (21-32) Anion Gap 8 mmol/L (5-15) Blood Urea Nitrogen 13 mg/dL (7-18) Creatinine 0.8 MG/DL (0.55-1.30) Estimat Glomerular Filtration Rate > 60 mL/min (>60) Glucose Level 107 MG/DL (74-106) H Uric Acid 3.2 MG/DL (2.6-7.2) Calcium Level 7.4 MG/DL (8.5-10.1) L Phosphorus Level 3.9 MG/DL (2.5-4.9) Magnesium Level 2.1 MG/DL (1.8-2.4) Total Bilirubin 0.5 MG/DL (0.2-1.0) Direct Bilirubin 0.3 MG/DL (0.0-0.3) Aspartate Amino Transf (AST/SGOT) 30 U/L (15-37) Alanine Aminotransferase (ALT/SGPT) 36 U/L (12-78) Alkaline Phosphatase 97 U/L (46-116) Total Protein 6.9 G/DL (6.4-8.2) Albumin 1.7 G/DL (3.4-5.0) L Current Medications Medications (Trade) Dose Ordered Sig/Veronica Route PRN Reason Start Time Stop Time Status Last Admin Dose Admin Acetaminophen (Tylenol) 650 mg Q4H PRN ORAL fever 08/06/17 14:15 09/05/17 14:14 08/10/17 12:28 Docusate Sodium (Colace) 100 mg TWICE A DAY ORAL 08/06/17 18:00 09/05/17 17:59 08/13/17 17:10 Furosemide (Lasix) 20 mg Q8HR IV 08/12/17 14:00 09/11/17 13:59 08/13/17 13:17 Heparin Sodium (Porcine) (Heparin 5000 units/ml) 5,000 units EVERY 12 HOURS SUBQ 08/06/17 21:00 09/05/17 20:59 08/12/17 20:32 Lansoprazole (Prevacid) 30 mg DAILY ORAL 08/10/17 09:00 09/09/17 08:59 08/13/17 08:52 Lorazepam (Ativan 2mg/ml 1ml) 1 mg Q4H PRN IV agitation 08/11/17 14:15 08/18/17 14:14 08/13/17 02:44 Metoclopramide HCl (Reglan) 10 mg Q6H PRN IVP REFRACTORY N/V 08/06/17 14:15 09/05/17 14:14 Morphine Sulfate (Morphine Sulfate) 2 mg Q4H PRN IVP Moderate Pain (Pain Scale 4-6) 08/12/17 09:30 08/17/17 09:29 08/12/17 10:59 Morphine Sulfate (Morphine Sulfate) 4 mg Q3H PRN IVP Severe Pain (Pain Scale 7-10) 08/10/17 21:45 08/15/17 13:29 08/13/17 13:17 Nitroglycerin (Ntg) 0.4 mg Q5M X 3 DOSES PRN SL Prn Chest Pain 08/06/17 14:15 09/05/17 14:14 Oxacillin Sodium 2 gm/Sodium Chloride 110 ml @ 220 mls/hr Q4H IVPB 08/10/17 14:00 08/17/17 13:59 08/13/17 17:11 Polyethylene Glycol (Miralax) 17 gm BEDTIME ORAL 08/06/17 21:00 09/05/17 20:59 08/12/17 20:32 Potassium Chloride (K-Dur) 20 meq DAILY ORAL 08/10/17 09:00 7/29/18 08:59 08/13/17 08:52 Temazepam (Restoril) 15 mg HSPRN PRN ORAL Insomnia 08/11/17 11:30 08/18/17 11:29 08/12/17 23:33 Steph Crowder M.D. Aug 13, 2017 19:19
[2017-08-13 20:00] VITALS: BP 106/60
[2017-08-13] MEDS: Miralax 17gm pkt ORAL SCH (21:47)
[2017-08-14] VITALS (16 sets, daily range): BP systolic 82–107; BP diastolic 42–64
[2017-08-14] MEDS: Morphine Sulfate 4mg/ml Inj IVP PRN ×2 (01:34→06:14)
[2017-08-14] MEDS: Oxacillin 2 GM in NS 110 ML IVPB SCH ×6 (01:41→21:56)
[2017-08-14] MEDS ORDERED: Zemuron 50mg/5ml Inj IV ONE (06:12)
[2017-08-14] MEDS ORDERED: Lidocaine 1% MPF 10mg/ml 5ml ONE ×2 (06:17→06:45)
--- NOTE | 2017-08-14 06:23 | Anethesia Preoperative Eval ---
Anesthesia Pre-op PMH/ROS General Date of Evaluation: Aug 14, 2017 Time of Evaluation: 07:26 Anesthesiologist: [place] ASA Score: ASA 3 Mallampati Score Class I : Soft palate, uvula, fauces, pillars visible Class II: Soft palate, uvula, fauces visible Class III: Soft palate, base of uvula visible Class IV: Only hard plate visible Mallampati Classification: Class II Surgeon: Cornelio Diagnosis: L Pleural Effusion Surgical Procedure: L VATS Anesthesia History: none Family History: no anesthesia problems Allergies: Coded Allergies: No Known Allergies (Unverified , 08/06/17) Medications: see eMAR Past Medical History Cardiovascular: Reports: HTN Pulmonary: Reports: asthma, COPD Gastrointestinal/Genitourinary: Reports: other - Hep C Neurologic/Psychiatric: Reports: depression/anxiety Hematology/Immune: Reports: other - Hep C, HIV PSxH Narrative: R Knee Sx Anesthesia Pre-op Phys. Exam Physician Exam Last Vital Signs Date Time Temp Pulse Resp B/P (MAP) Pulse Ox O2 Delivery O2 Flow Rate FiO2 08/14/17 06:14 98.0 08/14/17 04:00 82 17 107/56 91 Nasal Cannula 08/13/17 20:39 2.0 28 Constitutional: NAD Neurologic: CN 2-12 intact Cardiovascular: RRR Respiratory: CTA Gastrointestinal: S/NT/ND Airway Exam Mallampati Score: Class II MO: full ROM: full Teeth: missing, intact Anesthesia Pre-op A/P Labs Hematology Test 08/13/17 06:45 White Blood Count 14.0 K/UL (4.8-10.8) H Red Blood Count 3.90 M/UL (4.70-6.10) L Hemoglobin 11.8 G/DL (14.2-18.0) L Hematocrit 34.3 % (42.0-52.0) L Mean Corpuscular Volume 88 FL (80-99) Mean Corpuscular Hemoglobin 30.4 PG (27.0-31.0) Mean Corpuscular Hemoglobin Concent 34.5 G/DL (32.0-36.0) Red Cell Distribution Width 11.8 % (11.6-14.8) Platelet Count 284 K/UL (150-450) Mean Platelet Volume 6.1 FL (6.5-10.1) L Neutrophils (%) (Auto) 84.3 % (45.0-75.0) H Lymphocytes (%) (Auto) 9.2 % (20.0-45.0) L Monocytes (%) (Auto) 5.7 % (1.0-10.0) Eosinophils (%) (Auto) 0.4 % (0.0-3.0) Basophils (%) (Auto) 0.5 % (0.0-2.0) Chemistry Test 08/13/17 06:45 Sodium Level 135 MMOL/L (136-145) L Potassium Level 3.9 MMOL/L (3.5-5.1) Chloride Level 100 MMOL/L (98-107) Carbon Dioxide Level 28 MMOL/L (21-32) Anion Gap 8 mmol/L (5-15) Blood Urea Nitrogen 13 mg/dL (7-18) Creatinine 0.8 MG/DL (0.55-1.30) Estimat Glomerular Filtration Rate > 60 mL/min (>60) Glucose Level 107 MG/DL (74-106) H Uric Acid 3.2 MG/DL (2.6-7.2) Calcium Level 7.4 MG/DL (8.5-10.1) L Phosphorus Level 3.9 MG/DL (2.5-4.9) Magnesium Level 2.1 MG/DL (1.8-2.4) Total Bilirubin 0.5 MG/DL (0.2-1.0) Direct Bilirubin 0.3 MG/DL (0.0-0.3) Aspartate Amino Transf (AST/SGOT) 30 U/L (15-37) Alanine Aminotransferase (ALT/SGPT) 36 U/L (12-78) Alkaline Phosphatase 97 U/L (46-116) Total Protein 6.9 G/DL (6.4-8.2) Albumin 1.7 G/DL (3.4-5.0) L Risk Assessment & Plan Assessment: ASA 3 Plan: GA, BIS, DLETT Status Change Before Surgery: No Pre-Antibiotics Dru Grams Ancef IV Given Within 1 Hr of Incision: Yes Time Given: 07:56 Andrew Osborne MD Aug 14, 2017 06:23
[2017-08-14] MEDS ORDERED: LR 1000ml 1,000 ML IVLG SCH (06:27)
[2017-08-14] MEDS ORDERED: HYDROcodone/Acetamin 7.5/325 tab ORAL PRN ×3 (06:30→14:00)
[2017-08-14] MEDS ORDERED: DiphenhydrAMINE 50mg/ml Inj IVP PRN (06:30)
[2017-08-14] MEDS ORDERED: Labetalol 5mg/ml 20ml vial IV PRN (06:30)
[2017-08-14] MEDS ORDERED: Midazolam 2mg/2ml Inj IVP PRN (06:30)
[2017-08-14] MEDS ORDERED: Ketorolac 30mg Inj IV PRN ×3 (06:30→12:30)
[2017-08-14] MEDS ORDERED: Acetaminophen (Non formulary) 100 ML IV SCH (06:30)
[2017-08-14] MEDS ORDERED: LORazepam Inj 2mg/ml 1ml IV PRN (06:30)
[2017-08-14] MEDS ORDERED: Norco 5mg/325mg tab ORAL PRN ×2 (06:30→12:30)
[2017-08-14] MEDS ORDERED: Hydromorphone 0.5mg/0.5ml inj IVP PRN (06:30)
[2017-08-14] MEDS ORDERED: Atropine Inj 1mg/10ml Syr IV PRN (06:30)
[2017-08-14] MEDS ORDERED: fentaNYL 100 mcg/2 mL IV PRN (06:30)
[2017-08-14] MEDS ORDERED: Metoclopramide 10mg/2ml Inj IVP PRN ×3 (06:30→16:15)
[2017-08-14] MEDS ORDERED: oxyCODONE HCL/Acetaminophen 5/325mg ORAL PRN ×3 (06:30→14:00)
[2017-08-14 06:45] LABS: BASOPHILS % (AUTO) 0.7 % (0.0-2.0); EOSINOPHILS % (AUTO) 0.4 % (0.0-3.0); HEMATOCRIT 34.7 % (42.0-52.0); HEMOGLOBIN 12.1 G/DL (14.2-18.0); LYMPHOCYTES % (AUTO) 10.8 % (20.0-45.0); MEAN CORPUSCULAR VOLUME 88 FL (80-99); MONOCYTES % (AUTO) 5.2 % (1.0-10.0); NEUTROPHILS % (AUTO) 82.9 % (45.0-75.0); PLATELET COUNT 337 K/UL (150-450); RED BLOOD COUNT 3.93 M/UL (4.70-6.10); RED CELL DISTRIBUTION WIDTH 11.7 % (11.6-14.8); WHITE BLOOD COUNT 16.4 K/UL (4.8-10.8)
[2017-08-14] MEDS ORDERED: Sodium Chloride 10ml vial INJ ONE (06:45)
[2017-08-14] MEDS ORDERED: Dexamethasone 4mg/ml vial ONE (06:45)
[2017-08-14] MEDS ORDERED: fentaNYL 100 mcg/2 mL IV ONE (06:46)
[2017-08-14 06:54] LABS: INR 1.1 (0.9-1.1)
[2017-08-14] MEDS ORDERED: Lidocaine 1% Plain 30 ml INJ ONE (06:58)
[2017-08-14] MEDS ORDERED: Propofol 1,000mg/ 100ml btl IV ONE (07:00)
[2017-08-14] MEDS ORDERED: Cefepime 1gm vial ONE (07:15)
[2017-08-14] MEDS ORDERED: EPINEPHrine 1mg/1ml Amp ONE (07:15)
[2017-08-14] MEDS ORDERED: STERILE TALC 5 GM IPLEURAL ONE (07:15)
[2017-08-14] MEDS ORDERED: Lidocaine 1% 10mg/ml/Epi 0.005mg/ml 30ml vial INJ ONE (07:16)
[2017-08-14] MEDS ORDERED: Bupivacaine 0.25% Inj 30ml INJ ONE (07:16)
[2017-08-14 07:17] LABS: ALANINE AMINOTRANSFERASE 37 U/L (12-78); ALBUMIN 1.7 G/DL (3.4-5.0); ALBUMIN/GLOBULIN RATIO 0.3 (1.0-2.7); ALKALINE PHOSPHATASE 99 U/L (46-116); ANION GAP 7 mmol/L (5-15); ASPARTATE AMINO TRANSFERASE 29 U/L (15-37); BILIRUBIN,TOTAL 0.4 MG/DL (0.2-1.0); BLOOD UREA NITROGEN 10 mg/dL (7-18); CALCIUM 7.9 MG/DL (8.5-10.1); CARBON DIOXIDE 27 MMOL/L (21-32); CHLORIDE 96 MMOL/L (98-107); CREATININE 0.8 MG/DL (0.55-1.30); POTASSIUM 3.7 MMOL/L (3.5-5.1); SODIUM 130 MMOL/L (136-145)
[2017-08-14] MEDS ORDERED: Amikacin 500mg/2mL Inj IV ONE (07:30)
--- NOTE | 2017-08-14 07:36 | Pre-Procedure Note/Attestation ---
Pre-Procedure Note/Attestation Complete Prior to Procedure Planned Procedure: left Procedure Narrative: Bronchoscopy, left video-assisted thoracoscopic surgery, exploratory Indications for Procedure Pre-Operative Diagnosis: Left empyema Attestation I attest that I discussed the nature of the procedure; its benefits; risks and complications; and alternatives (and the risks and benefits of such alternatives ), prior to the procedure, with the patient (or the patient's legal equal opportunity representative). I attest that, if there was a reasonable possibility of needing a blood transfusion, the patient (or the patient's legal equal opportunity representative) was given the [facility] standardized written summary, pursuant to the Giovanni Gilson Blood Safety Act ([place] Health and Safety Code # 1645, as amended). I attest that I re-evaluated the patient just prior to the surgery and that there has been no change in the patient's H&P, except as documented below: Abel Grimes MD Aug 14, 2017 07:36
--- NOTE | 2017-08-14 08:43 | Immediate Post-Op Evaluation ---
Immediate Post-Op Evalulation Immediate Post-Op Evalulation Procedure: L VATS Date of Evaluation: Aug 14, 2017 Time of Evaluation: 11:14 IV Fluids: 1000 LR Blood Products: 0 Estimated Blood Loss: 100 Urinary Output: 0 Blood Pressure Systolic: 106 Blood Pressure Diastolic: 78 Pulse Rate: 91 Respiratory Rate: 18 O2 Sat by Pulse Oximetry: 90 Temperature (Fahrenheit): 98.2 Pain Score (1-10): 3 Nausea: No Vomiting: No Complications 0 Patient Status: awake, reacts, patent, extubated, none Hydration Status: adequate Dru Grams Ancef IV Given Within 1 Hr of Incision: Yes Time Given: 07:56 Andrew Osborne MD Aug 14, 2017 08:43
[2017-08-14] MEDS: Docusate 100mg cap ORAL SCH ×2 (09:00→17:06)
[2017-08-14] MEDS: Heparin 5000 units/ml inj SUBQ SCH ×2 (09:00→20:53)
--- NOTE | 2017-08-14 09:03 | General Progress Note ---
Assessment/Plan Problem List: (1) Hepatitis C ICD Codes: B19.20 - Unspecified viral hepatitis C without hepatic coma SNOMED: 01415253 (2) Constipation ICD Codes: K59.00 - Constipation, unspecified SNOMED: 87445115 Qualifiers: Qualified Codes: K59.00 - Constipation, unspecified (3) Hyponatremia ICD Codes: E87.1 - Hypo-osmolality and hyponatremia SNOMED: 15196842 (4) Abdominal pain ICD Codes: R10.9 - Unspecified abdominal pain SNOMED: 87584096 Qualifiers: Qualified Codes: R10.32 - Left lower quadrant pain (5) HIV (human immunodeficiency virus infection) ICD Codes: B20 - Human immunodeficiency virus [HIV] disease SNOMED: 10894740 (6) Polysubstance (excluding opioids) dependence ICD Codes: F19.20 - Other psychoactive substance dependence, uncomplicated SNOMED: 38982739 (7) Pleural effusion ICD Codes: J90 - Pleural effusion, not elsewhere classified SNOMED: 38456823 Status: unchanged Assessment/Plan ot pt diet abx ivf neph f/u cbc bmp am Subjective Constitutional: Reports: weakness Allergies: Coded Allergies: No Known Allergies (Unverified , 08/06/17) All Systems: reviewed and negative except above Subjective calm in bed awaitng brocoscopy Objective Last 24 Hour Vital Signs Date Time Temp Pulse Resp B/P (MAP) Pulse Ox O2 Delivery O2 Flow Rate FiO2 08/14/17 06:44 98.0 08/14/17 06:14 98.0 08/14/17 04:00 98.0 82 17 107/56 91 Nasal Cannula 98.0 08/14/17 00:00 99.5 92 18 104/55 90 Nasal Cannula 99.5 08/13/17 20:39 Nasal Cannula 2.0 28 08/13/17 20:39 96 Nasal Cannula 2.0 28 08/13/17 20:00 98.6 92 20 106/60 91 Nasal Cannula 2.0 98.6 08/13/17 16:00 98.0 87 20 105/60 98 Nasal Cannula 2.0 98.0 08/13/17 13:17 97.8 08/13/17 12:00 97.8 89 20 108/62 97 Nasal Cannula 2.0 97.8 Intake and Output 08/13/17 08/14/17 19:00 07:00 # Voids 1 4 # Bowel Movements 2 Laboratory Tests 08/14/17 05:25: White Blood Count 16.4H, Red Blood Count 3.93L, Hemoglobin 12.1L, Hematocrit 34.7L, Mean Corpuscular Volume 88, Mean Corpuscular Hemoglobin 30.8, Mean Corpuscular Hemoglobin Concent 34.8, Red Cell Distribution Width 11.7, Platelet Count 337, Mean Platelet Volume 5.7L, Neutrophils (%) (Auto) 82.9H, Lymphocytes (%) (Auto) 10.8L, Monocytes (%) (Auto) 5.2, Eosinophils (%) (Auto) 0.4, Basophils (%) (Auto) 0.7, Prothrombin Time 11.8H, Prothromb Time International Ratio 1.1, Activated Partial Thromboplast Time 30, Sodium Level 130L, Potassium Level 3.7, Chloride Level 96L, Carbon Dioxide Level 27, Anion Gap 7, Blood Urea Nitrogen 10, Creatinine 0.8, Estimat Glomerular Filtration Rate > 60, Glucose Level 111H, Calcium Level 7.9L, Total Bilirubin 0.4, Aspartate Amino Transf (AST /SGOT) 29, Alanine Aminotransferase (ALT/SGPT) 37, Alkaline Phosphatase 99, Pro- B-Type Natriuretic Peptide [Pending], Total Protein 6.9, Albumin 1.7L, Globulin 5.2, Albumin/Globulin Ratio 0.3L Height (Feet): 5 Height (Inches): 8.00 Weight (Pounds): 160 General Appearance: lethargic EENT: normal ENT inspection Neck: normal alignment Cardiovascular: normal peripheral pulses, normal rate, regular rhythm Respiratory/Chest: chest wall non-tender, lungs clear, normal breath sounds Abdomen: normal bowel sounds, non tender, soft Extremities: normal inspection Edema: no edema noted Arm (L), no edema noted Arm (R), no edema noted Leg (L), no edema noted Leg (R), no edema noted Pedal (L), no edema noted Pedal (R), no edema noted Generalized Neurologic: responsive Skin: normal pigmentation, warm/dry Chemo Dietrich DO Aug 14, 2017 09:03
[2017-08-14] MEDS ORDERED: Neostigmine 1mg/ml 10ml Inj ONE (09:25)
[2017-08-14] MEDS ORDERED: Glycopyrrolate 0.2mg/ml 1ml Vial ONE (09:25)
[2017-08-14] MEDS ORDERED: Bacitracin 50000 Units Vial ONE (09:27)
--- NOTE | 2017-08-14 11:02 | Pulmonolgy Critical Care Note ---
Critical Care - Asmt/Plan Problems: (1) Empyema (2) Thoracostomy tube in place (3) Bacteremia (4) COPD (chronic obstructive pulmonary disease) (5) HIV (human immunodeficiency virus infection) Respiratory: monitor respiratory rate, adjust FIO2, CXR Cardiac: continue to monitor HR/BP Renal: F/U I&O Infectious Disease: check cultures Gastrointestinal: hold feedings Endocrine: monitor blood sugar Hematologic: monitor H/H, transfuse if hgb<8.5 Neurologic: PRN Ativan, PRN Morphine, keep patient comfortable Notes Reviewed: leather skinner, cardio Discussed with: nurses, consultants, pillowcase sewermanager general - Objective Last 24 Hour Vital Signs Date Time Temp Pulse Resp B/P (MAP) Pulse Ox O2 Delivery O2 Flow Rate FiO2 08/14/17 07:50 96 Nasal Cannula 2.0 28 08/14/17 07:50 Nasal Cannula 2.0 28 08/14/17 06:44 98.0 08/14/17 06:14 98.0 08/14/17 04:00 98.0 82 17 107/56 91 Nasal Cannula 98.0 08/14/17 00:00 99.5 92 18 104/55 90 Nasal Cannula 99.5 08/13/17 20:39 Nasal Cannula 2.0 28 08/13/17 20:39 96 Nasal Cannula 2.0 28 08/13/17 20:00 98.6 92 20 106/60 91 Nasal Cannula 2.0 98.6 08/13/17 16:00 98.0 87 20 105/60 98 Nasal Cannula 2.0 98.0 08/13/17 13:17 97.8 08/13/17 12:00 97.8 89 20 108/62 97 Nasal Cannula 2.0 97.8 Status: awake Condition: critical Neck: full ROM Heart: HR/BP stable, regular Abdomen: soft, feeding tube Extremities: no C/C/E Critical Care - Subjective ROS Limited/Unobtainable: Yes Condition: critical EKG Rhythm: Sinus Rhythm FI02: 28 Sputum Amount: None Fluids: d5 1/ NS 75 cc/hour I&O: Intake and Output 08/13/17 08/14/17 19:00 07:00 # Voids 1 4 # Bowel Movements 2 Labs: Laboratory Tests Test 08/14/17 05:25 White Blood Count 16.4 K/UL (4.8-10.8) H Red Blood Count 3.93 M/UL (4.70-6.10) L Hemoglobin 12.1 G/DL (14.2-18.0) L Hematocrit 34.7 % (42.0-52.0) L Mean Corpuscular Volume 88 FL (80-99) Mean Corpuscular Hemoglobin 30.8 PG (27.0-31.0) Mean Corpuscular Hemoglobin Concent 34.8 G/DL (32.0-36.0) Red Cell Distribution Width 11.7 % (11.6-14.8) Platelet Count 337 K/UL (150-450) Mean Platelet Volume 5.7 FL (6.5-10.1) L Neutrophils (%) (Auto) 82.9 % (45.0-75.0) H Lymphocytes (%) (Auto) 10.8 % (20.0-45.0) L Monocytes (%) (Auto) 5.2 % (1.0-10.0) Eosinophils (%) (Auto) 0.4 % (0.0-3.0) Basophils (%) (Auto) 0.7 % (0.0-2.0) Prothrombin Time 11.8 SEC (9.30-11.50) H Prothromb Time International Ratio 1.1 (0.9-1.1) Activated Partial Thromboplast Time 30 SEC (23-33) Sodium Level 130 MMOL/L (136-145) L Potassium Level 3.7 MMOL/L (3.5-5.1) Chloride Level 96 MMOL/L (98-107) L Carbon Dioxide Level 27 MMOL/L (21-32) Anion Gap 7 mmol/L (5-15) Blood Urea Nitrogen 10 mg/dL (7-18) Creatinine 0.8 MG/DL (0.55-1.30) Estimat Glomerular Filtration Rate > 60 mL/min (>60) Glucose Level 111 MG/DL (74-106) H Calcium Level 7.9 MG/DL (8.5-10.1) L Total Bilirubin 0.4 MG/DL (0.2-1.0) Aspartate Amino Transf (AST/SGOT) 29 U/L (15-37) Alanine Aminotransferase (ALT/SGPT) 37 U/L (12-78) Alkaline Phosphatase 99 U/L (46-116) Pro-B-Type Natriuretic Peptide Pending Total Protein 6.9 G/DL (6.4-8.2) Albumin 1.7 G/DL (3.4-5.0) L Globulin 5.2 g/dL Albumin/Globulin Ratio 0.3 (1.0-2.7) L Sally Cox MD Aug 14, 2017 11:02
--- NOTE | 2017-08-14 11:23 | Nephrology Progress Note ---
Assessment/Plan Problem List: (1) Hyponatremia (2) HIV (human immunodeficiency virus infection) (3) COPD (chronic obstructive pulmonary disease) (4) Hepatitis C (5) Drug abuse and dependence (6) Hypoalbuminemia Assessment Sever HypoNatremia- na up to 135 HypoAlbuminemia HIV + Chronic Pain MultiDrug abuse: coccaine MJ Amphetamines Anemia COPD Hep C Plan due VATS today po fluid restriction Trial of 3% saline and PRN Lasix as needed monitor lytes K Mag Phos as needed per pulmonary Subjective ROS Limited/Unobtainable: No Constitutional: Reports: malaise Objective Objective Last 24 Hour Vital Signs Date Time Temp Pulse Resp B/P (MAP) Pulse Ox O2 Delivery O2 Flow Rate FiO2 08/14/17 11:01 208.8 91 18 90 08/14/17 07:50 96 Nasal Cannula 2.0 28 08/14/17 07:50 Nasal Cannula 2.0 28 08/14/17 06:44 98.0 08/14/17 06:14 98.0 08/14/17 04:00 98.0 82 17 107/56 91 Nasal Cannula 98.0 08/14/17 00:00 99.5 92 18 104/55 90 Nasal Cannula 99.5 08/13/17 20:39 Nasal Cannula 2.0 28 08/13/17 20:39 96 Nasal Cannula 2.0 28 08/13/17 20:00 98.6 92 20 106/60 91 Nasal Cannula 2.0 98.6 08/13/17 16:00 98.0 87 20 105/60 98 Nasal Cannula 2.0 98.0 08/13/17 13:17 97.8 08/13/17 12:00 97.8 89 20 108/62 97 Nasal Cannula 2.0 97.8 Intake and Output 08/13/17 08/14/17 19:00 07:00 # Voids 1 4 # Bowel Movements 2 Laboratory Tests 08/14/17 05:25: White Blood Count 16.4H, Red Blood Count 3.93L, Hemoglobin 12.1L, Hematocrit 34.7L, Mean Corpuscular Volume 88, Mean Corpuscular Hemoglobin 30.8, Mean Corpuscular Hemoglobin Concent 34.8, Red Cell Distribution Width 11.7, Platelet Count 337, Mean Platelet Volume 5.7L, Neutrophils (%) (Auto) 82.9H, Lymphocytes (%) (Auto) 10.8L, Monocytes (%) (Auto) 5.2, Eosinophils (%) (Auto) 0.4, Basophils (%) (Auto) 0.7, Prothrombin Time 11.8H, Prothromb Time International Ratio 1.1, Activated Partial Thromboplast Time 30, Sodium Level 130L, Potassium Level 3.7, Chloride Level 96L, Carbon Dioxide Level 27, Anion Gap 7, Blood Urea Nitrogen 10, Creatinine 0.8, Estimat Glomerular Filtration Rate > 60, Glucose Level 111H, Calcium Level 7.9L, Total Bilirubin 0.4, Aspartate Amino Transf (AST /SGOT) 29, Alanine Aminotransferase (ALT/SGPT) 37, Alkaline Phosphatase 99, Pro- B-Type Natriuretic Peptide [Pending], Total Protein 6.9, Albumin 1.7L, Globulin 5.2, Albumin/Globulin Ratio 0.3L Height (Feet): 5 Height (Inches): 8.00 Weight (Pounds): 160 General Appearance: no apparent distress, lethargic Respiratory/Chest: decreased breath sounds Objective no change AJMI KRISHNAMURTHY Aug 14, 2017 11:23
[2017-08-14 11:28] LABS: HEMATOCRIT 34.8 % (42.0-52.0); HEMOGLOBIN 11.6 G/DL (14.2-18.0); MEAN CORPUSCULAR VOLUME 88 FL (80-99); PLATELET COUNT 407 K/UL (150-450); RED BLOOD COUNT 3.94 M/UL (4.70-6.10); RED CELL DISTRIBUTION WIDTH 11.7 % (11.6-14.8)
[2017-08-14 11:33] LABS: WHITE BLOOD COUNT 27.3 K/UL (4.8-10.8)
[2017-08-14] MEDS ORDERED: Nitroglycerin Subl 0.4mg tab SL PRN (11:45)
[2017-08-14] MEDS ORDERED: D5 1/2NS w/KCl 20mEq 1,000 ML IV SCH ×2 (12:00→12:30)
--- NOTE | 2017-08-14 12:01 | Infectious Diseases Prog Note ---
Assessment/Plan Assessment/Plan Assessment: Persistent MSSA Bacteremia- likely 2ry to empyema. Ro endocarditis (high risk) -s/p VATS 08/14 -OR findings and cx p Empyema 08/10-CT chest Left pleural effusion. Scalloped appearance suggests loculation. Presence of gas bubbles suggest infection by gas-forming organism. Gas bubbles appear trapped within the fluid rather than floating nondependently , indicating the fluid may be highly viscous. -r/o R lateral chest wall seeding as patient c/o severe pain in the area Sepsis -08/07 Bcx 4/ MSSA; 08/08 4/4+; 08/10 2/4 +; 08/11 2/4+; 08/13 p -CXR no acute disease -sp cx Normal respiratory mati Fever, SP Leukocytosis, previously improved now worsened post-op Polysubstance abuse- refers last IVDA was ~7 yrs ago -UDS +THC, cocaine and amphetamines HIV - non progressor- per patient, never on Tx and CD4 >500 and UD VL -CD4 510 (39.2%), VL ND Hep C s/p tx (20 years ago) with sustained virologic response COPD/asthma tobacco abuse (stopped smoking 3d [employer]) Constipation -CT abd/p w/: Small left pleural effusion and left basilar atelectasis and possibly some consolidation. No definite acute abdominal or pelvic process. No CT evidence of significant constipation. Colonic diverticulosis. No evidence of diverticulitis. Mildly hypoattenuating liver, consistent with fatty change. 5 mm fat attenuation nodule is seen within the left adrenal. Prominent prostate, with nonspecific hypoattenuation. Subcentimeter low-attenuation left renal lesion, too small to characterize, most likely benign simple cysts. No further follow-up necessary Plan: - Cont IV Oxacillin ( AB Rx d# ) for MSSA bacteremia -08/10 SP Ceftriaxone d# 5 and IV Vancomycin #3 -08/06 SP Cefepime x1, Levaquin x1 -monitor LFTs -f/u Bcx x2 (last 08/13) -NURA to eval for endocarditis (high suspicion and to eval for perivalvular abscess) -sp VATs today -f/u tissue for bacterial, fungal, AFB and pathology -Monitor CBC/BMP, temperatures -aspiration precautions -ICU care Discussed with RN. Subjective Allergies: Coded Allergies: No Known Allergies (Unverified , 08/06/17) Subjective S/p VATS today; transferred to MICU afterwards afebrile WBC up to 20s post VATS Bcx 08/13 p Objective Vital Signs Last 24 Hour Vital Signs Date Time Temp Pulse Resp B/P (MAP) Pulse Ox O2 Delivery O2 Flow Rate FiO2 08/14/17 11:41 98.2 08/14/17 11:01 208.8 91 18 90 08/14/17 07:50 96 Nasal Cannula 2.0 28 08/14/17 07:50 Nasal Cannula 2.0 28 08/14/17 06:44 98.0 08/14/17 06:14 98.0 08/14/17 04:00 98.0 82 17 107/56 91 Nasal Cannula 98.0 08/14/17 00:00 99.5 92 18 104/55 90 Nasal Cannula 99.5 08/13/17 20:39 Nasal Cannula 2.0 28 08/13/17 20:39 96 Nasal Cannula 2.0 28 08/13/17 20:00 98.6 92 20 106/60 91 Nasal Cannula 2.0 98.6 08/13/17 16:00 98.0 87 20 105/60 98 Nasal Cannula 2.0 98.0 08/13/17 13:17 97.8 08/13/17 12:00 97.8 89 20 108/62 97 Nasal Cannula 2.0 97.8 Height (Feet): 5 Height (Inches): 8.00 Weight (Pounds): 160 Objective General Appearance: WD/WN HEENT: atraumatic Respiratory/Chest: chest wall non-tender, lungs clear Cardiovascular: normal peripheral pulses, normal rate Abdomen: normal bowel sounds, soft, non tender Skin: no rash Laboratory Tests Test 08/14/17 05:25 08/14/17 11:10 White Blood Count 16.4 K/UL (4.8-10.8) H 27.3 K/UL (4.8-10.8) #*H Red Blood Count 3.93 M/UL (4.70-6.10) L 3.94 M/UL (4.70-6.10) L Hemoglobin 12.1 G/DL (14.2-18.0) L 11.6 G/DL (14.2-18.0) L Hematocrit 34.7 % (42.0-52.0) L 34.8 % (42.0-52.0) L Mean Corpuscular Volume 88 FL (80-99) 88 FL (80-99) Mean Corpuscular Hemoglobin 30.8 PG (27.0-31.0) 29.5 PG (27.0-31.0) Mean Corpuscular Hemoglobin Concent 34.8 G/DL (32.0-36.0) 33.4 G/DL (32.0-36.0) Red Cell Distribution Width 11.7 % (11.6-14.8) 11.7 % (11.6-14.8) Platelet Count 337 K/UL (150-450) 407 K/UL (150-450) Mean Platelet Volume 5.7 FL (6.5-10.1) L 6.1 FL (6.5-10.1) L Neutrophils (%) (Auto) 82.9 % (45.0-75.0) H % (45.0-75.0) Lymphocytes (%) (Auto) 10.8 % (20.0-45.0) L % (20.0-45.0) Monocytes (%) (Auto) 5.2 % (1.0-10.0) % (1.0-10.0) Eosinophils (%) (Auto) 0.4 % (0.0-3.0) % (0.0-3.0) Basophils (%) (Auto) 0.7 % (0.0-2.0) % (0.0-2.0) Prothrombin Time 11.8 SEC (9.30-11.50) H Prothromb Time International Ratio 1.1 (0.9-1.1) Activated Partial Thromboplast Time 30 SEC (23-33) Sodium Level 130 MMOL/L (136-145) L Pending Potassium Level 3.7 MMOL/L (3.5-5.1) Pending Chloride Level 96 MMOL/L (98-107) L Pending Carbon Dioxide Level 27 MMOL/L (21-32) Pending Anion Gap 7 mmol/L (5-15) Blood Urea Nitrogen 10 mg/dL (7-18) Pending Creatinine 0.8 MG/DL (0.55-1.30) Pending Estimat Glomerular Filtration Rate > 60 mL/min (>60) Pending Glucose Level 111 MG/DL (74-106) H Pending Calcium Level 7.9 MG/DL (8.5-10.1) L Pending Total Bilirubin 0.4 MG/DL (0.2-1.0) Pending Aspartate Amino Transf (AST/SGOT) 29 U/L (15-37) Pending Alanine Aminotransferase (ALT/SGPT) 37 U/L (12-78) Pending Alkaline Phosphatase 99 U/L (46-116) Pending Pro-B-Type Natriuretic Peptide Pending Total Protein 6.9 G/DL (6.4-8.2) Pending Albumin 1.7 G/DL (3.4-5.0) L Pending Globulin 5.2 g/dL Pending Albumin/Globulin Ratio 0.3 (1.0-2.7) L Neutrophils % (Manual) Pending Lymphocytes % (Manual) Pending Platelet Estimate Pending Platelet Morphology Pending Current Medications Medications (Trade) Dose Ordered Sig/Veronica Route PRN Reason Start Time Stop Time Status Last Admin Dose Admin Acetaminophen (Tylenol) 650 mg Q4H PRN ORAL fever 08/06/17 14:15 09/05/17 14:14 08/10/17 12:28 Acetaminophen/ Hydrocodone Bitart ([place] 5/325) 1 tab Q1H PRN ORAL Mild Pain (Pain Scale 1-3) 08/14/17 06:30 08/14/17 15:00 Acetaminophen/ Hydrocodone Bitart ([place] 7.5/325) 1 tab Q1H PRN ORAL Moderate Pain (Pain Scale 4-6) 08/14/17 06:30 08/14/17 15:00 Al Hydroxide/Mg Hydroxide (Mylanta) 15 ml Q1H PRN ORAL gi upset 08/14/17 06:30 08/14/17 15:00 Atropine Sulfate (Atropine) 0.5 mg Q5M PRN IV HR <40 08/14/17 06:30 08/14/17 15:00 Dextrose/ Electrolytes 1,000 ml @ 75 mls/hr [id number] IV 08/14/17 12:00 08/15/17 11:59 Diphenhydramine HCl (Benadryl) 25 mg Q15M PRN IVP Itching 08/14/17 06:30 08/14/17 15:00 Docusate Sodium (Colace) 100 mg TWICE A DAY ORAL 08/06/17 18:00 09/05/17 17:59 08/13/17 17:10 Fentanyl Citrate (Sublimaze 100 mcg/2 mL) 25 mcg Q10M PRN IV Moderate Pain (Pain Scale 4-6) 08/14/17 06:30 08/14/17 15:00 Heparin Sodium (Porcine) (Heparin 5000 units/ml) 5,000 units EVERY 12 HOURS SUBQ 08/06/17 21:00 09/05/17 20:59 08/12/17 20:32 Hydralazine HCl (Apresoline) 5 mg Q30M PRN IV SBP>160 / DBP>90 08/14/17 06:30 08/14/17 15:00 Ketorolac Tromethamine (Toradol 30mg) 30 mg Q1H PRN IV Severe Breakthru Pain (>7) 08/14/17 06:30 08/14/17 15:00 Labetalol HCl (Normodyne) 5 mg Q10M PRN IV SBP>160 / DBP>90 08/14/17 06:30 08/14/17 15:00 Lactated Ringer's 1,000 ml @ 10 mls/hr Q24H IVLG 08/14/17 06:27 08/14/17 15:00 08/14/17 06:27 Lansoprazole (Prevacid) 30 mg DAILY ORAL 08/10/17 09:00 09/09/17 08:59 08/13/17 08:52 Lorazepam (Ativan 2mg/ml 1ml) 1 mg Q4H PRN IV agitation 08/11/17 14:15 08/18/17 14:14 08/13/17 02:44 Metoclopramide HCl (Reglan) 10 mg Q1H PRN IVP Nausea & Vomiting 08/14/17 06:30 08/14/17 15:00 Metoclopramide HCl (Reglan) 10 mg Q6H PRN IVP REFRACTORY N/V 08/06/17 14:15 09/05/17 14:14 Midazolam HCl (Versed 2mg/2ml vial) 1 mg Q15M PRN IVP For Anxiety 08/14/17 06:30 08/14/17 15:00 Nitroglycerin (Ntg) 0.4 mg Q5M X 3 DOSES PRN SL Prn Chest Pain 08/06/17 14:15 09/05/17 14:14 Ondansetron HCl (Zofran) 4 mg Q1H PRN IVP Nausea & Vomiting 08/14/17 06:30 08/14/17 15:00 Oxacillin Sodium 2 gm/Sodium Chloride 110 ml @ 220 mls/hr Q4H IVPB 08/10/17 14:00 08/17/17 13:59 08/14/17 06:15 Oxycodone/ Acetaminophen (Percocet 5-325) 1 tab Q1H PRN ORAL Severe Pain (Pain Scale 7-10) 08/14/17 06:30 08/14/17 15:00 Polyethylene Glycol (Miralax) 17 gm BEDTIME ORAL 08/06/17 21:00 09/05/17 20:59 08/13/17 21:47 Potassium Chloride (K-Dur) 20 meq DAILY ORAL 08/10/17 09:00 09/09/17 08:59 08/13/17 08:52 Temazepam (Restoril) 15 mg HSPRN PRN ORAL Insomnia 08/11/17 11:30 08/18/17 11:29 08/13/17 21:35 Steph Crowder M.D. Aug 14, 2017 12:01
[2017-08-14 12:03] LABS: ANION GAP 9 mmol/L (5-15); BLOOD UREA NITROGEN 11 mg/dL (7-18); CALCIUM 7.6 MG/DL (8.5-10.1); CARBON DIOXIDE 25 MMOL/L (21-32); CHLORIDE 95 MMOL/L (98-107); CREATININE 0.9 MG/DL (0.55-1.30); SODIUM 129 MMOL/L (136-145)
[2017-08-14 12:08] LABS: ALANINE AMINOTRANSFERASE 33 U/L (12-78); ALBUMIN 1.6 G/DL (3.4-5.0); ALBUMIN/GLOBULIN RATIO 0.3 (1.0-2.7); ALKALINE PHOSPHATASE 97 U/L (46-116); ASPARTATE AMINO TRANSFERASE 26 U/L (15-37); BILIRUBIN,TOTAL 0.4 MG/DL (0.2-1.0)
--- NOTE | 2017-08-14 12:09 | Diagnostic Imaging Report ---
Indication: Dyspnea Comparison: 08/13/2017 A single view chest radiograph was obtained. Findings: Chest tube inserted on the left. No pneumothorax demonstrated. Small pleural effusion likely present on the right. Interstitial edema may be present. Platelike atelectasis left midlung and hazy patchy airspace disease demonstrated once again bilaterally. Heart size is stable. IMPRESSION: Placement of a left chest tube. No pneumothorax seen. No significant change otherwise
--- NOTE | 2017-08-14 15:00 | Cardiology Progress Note ---
Assessment/Plan Status: deteriorating Assessment/Plan HIV HEP C HTN Assessment COPD Asthma Constipation Hyponatemia Sepsis Pneumonia Plan Reviewed TTE - no evidence of endocarditis, valvular destruction/regurgitation, no evidence of septic emboli, He does not have osler node, septic pulmonary infarcts, ICH, conjunctival hemorrhages, janeway lesions He does have a hx of drug use, positive blood cultures, and fevers (albeit broke with antibiotics) , and hx of IV drug use He has a moderate pre test probability of IE ( 1 major, 2 minor) My recommendations are if he has persistent fevers/blood cultures on antibiotics we should proceed with NURA to determine course of therapy, until NURA is done treat as if he has endocarditis since he has persistent positive cultures. If his cultures do not clear he may need surgery, nothing seen on TTE , may opt to re check until NURA is done -> PLACED ORDER TO RE CHECK TTE TO EVALUATE FOR ABSCESS AND VALVULAR DISFUNCTION Hypertension controlled Constipation per GI Repeat blood cultures until clear CT surgeon recommended exploratory left video-assisted thoracoscopic surgery, planned for Monday 08/14. supportive care outpatient GI procedure as per GI Continue NA restriction and 3% IVF per nephrology - SIADH, lasix prn - NA improved PT/OT DVT GI prophylaxis Subjective Cardiovascular: Reports: no symptoms Respiratory: Reports: no symptoms Gastrointestinal/Abdominal: Reports: no symptoms Genitourinary: Reports: no symptoms Subjective No acute events, no complaints, low blood pressures Blood cultures persistently positive and WBC elevated and rising NA lower today Patient has positive cultures from 08/07 and 08/08 as well Treat empirically for endocarditis until NURA done, Plan for VATS Objective Last 24 Hour Vital Signs Date Time Temp Pulse Resp B/P (MAP) Pulse Ox O2 Delivery O2 Flow Rate FiO2 08/14/17 14:00 73 20 99/56 94 T-piece 3.0 08/14/17 13:00 77 20 90/52 100 Nasal Cannula 3.0 08/14/17 12:26 82 08/14/17 12:00 97.8 87 20 91/53 100 Non-Rebreather 100 97.8 08/14/17 12:00 82 24 91/53 100 Non-Rebreather 100 08/14/17 11:41 98.2 08/14/17 11:01 208.8 91 18 90 08/14/17 11:00 95 24 90/57 100 Non-Rebreather 100 08/14/17 10:30 97.5 92 24 102/64 96 Non-Rebreather 100 97.5 08/14/17 07:50 96 Nasal Cannula 2.0 28 08/14/17 07:50 Nasal Cannula 2.0 28 08/14/17 06:44 98.0 08/14/17 06:14 98.0 08/14/17 04:00 98.0 82 17 107/56 91 Nasal Cannula 98.0 08/14/17 00:00 99.5 92 18 104/55 90 Nasal Cannula 99.5 08/13/17 20:39 Nasal Cannula 2.0 28 08/13/17 20:39 96 Nasal Cannula 2.0 28 08/13/17 20:00 98.6 92 20 106/60 91 Nasal Cannula 2.0 98.6 08/13/17 16:00 98.0 87 20 105/60 98 Nasal Cannula 2.0 98.0 General Appearance: no apparent distress EENT: PERRL/EOMI Neck: normal alignment Rhythm: NSR Cardiovascular: normal peripheral pulses Abdomen: normal bowel sounds Extremities: normal range of motion Neurologic: occupational therapist home based II-XII grossly normal Intake and Output 08/13/17 08/14/17 19:00 07:00 # Voids 1 4 # Bowel Movements 2 Laboratory Tests Test 08/14/17 05:25 08/14/17 11:10 08/14/17 11:20 White Blood Count 16.4 K/UL (4.8-10.8) H 27.3 K/UL (4.8-10.8) #*H Red Blood Count 3.93 M/UL (4.70-6.10) L 3.94 M/UL (4.70-6.10) L Hemoglobin 12.1 G/DL (14.2-18.0) L 11.6 G/DL (14.2-18.0) L Hematocrit 34.7 % (42.0-52.0) L 34.8 % (42.0-52.0) L Mean Corpuscular Volume 88 FL (80-99) 88 FL (80-99) Mean Corpuscular Hemoglobin 30.8 PG (27.0-31.0) 29.5 PG (27.0-31.0) Mean Corpuscular Hemoglobin Concent 34.8 G/DL (32.0-36.0) 33.4 G/DL (32.0-36.0) Red Cell Distribution Width 11.7 % (11.6-14.8) 11.7 % (11.6-14.8) Platelet Count 337 K/UL (150-450) 407 K/UL (150-450) Mean Platelet Volume 5.7 FL (6.5-10.1) L 6.1 FL (6.5-10.1) L Neutrophils (%) (Auto) 82.9 % (45.0-75.0) H % (45.0-75.0) Lymphocytes (%) (Auto) 10.8 % (20.0-45.0) L % (20.0-45.0) Monocytes (%) (Auto) 5.2 % (1.0-10.0) % (1.0-10.0) Eosinophils (%) (Auto) 0.4 % (0.0-3.0) % (0.0-3.0) Basophils (%) (Auto) 0.7 % (0.0-2.0) % (0.0-2.0) Prothrombin Time 11.8 SEC (9.30-11.50) H Prothromb Time International Ratio 1.1 (0.9-1.1) Activated Partial Thromboplast Time 30 SEC (23-33) Sodium Level 130 MMOL/L (136-145) L 129 MMOL/L (136-145) L Potassium Level 3.7 MMOL/L (3.5-5.1) 4.0 MMOL/L (3.5-5.1) Chloride Level 96 MMOL/L (98-107) L 95 MMOL/L (98-107) L Carbon Dioxide Level 27 MMOL/L (21-32) 25 MMOL/L (21-32) Anion Gap 7 mmol/L (5-15) 9 mmol/L (5-15) Blood Urea Nitrogen 10 mg/dL (7-18) 11 mg/dL (7-18) Creatinine 0.8 MG/DL (0.55-1.30) 0.9 MG/DL (0.55-1.30) Estimat Glomerular Filtration Rate > 60 mL/min (>60) > 60 mL/min (>60) Glucose Level 111 MG/DL (74-106) H 201 MG/DL (74-106) H Calcium Level 7.9 MG/DL (8.5-10.1) L 7.6 MG/DL (8.5-10.1) L Total Bilirubin 0.4 MG/DL (0.2-1.0) 0.4 MG/DL (0.2-1.0) Aspartate Amino Transf (AST/SGOT) 29 U/L (15-37) 26 U/L (15-37) Alanine Aminotransferase (ALT/SGPT) 37 U/L (12-78) 33 U/L (12-78) Alkaline Phosphatase 99 U/L (46-116) 97 U/L (46-116) Pro-B-Type Natriuretic Peptide 25 pg/mL (0-125) Total Protein 6.9 G/DL (6.4-8.2) 6.8 G/DL (6.4-8.2) Albumin 1.7 G/DL (3.4-5.0) L 1.6 G/DL (3.4-5.0) L Globulin 5.2 g/dL 5.2 g/dL Albumin/Globulin Ratio 0.3 (1.0-2.7) L 0.3 (1.0-2.7) L Differential Total Cells Counted 100 Neutrophils % (Manual) 88 % (45-75) H Lymphocytes % (Manual) 4 % (20-45) L Monocytes % (Manual) 4 % (1-10) Eosinophils % (Manual) 0 % (0-3) Basophils % (Manual) 0 % (0-2) Band Neutrophils 4 % (0-8) Platelet Estimate Increased H Platelet Morphology Normal Red Blood Cell Morphology Normal Arterial Blood pH 7.403 (7.350-7.450) Arterial Blood Partial Pressure CO2 40.5 mmHg (35.0-45.0) Arterial Blood Partial Pressure O2 82.2 mmHg (75.0-100.0) Arterial Blood HCO3 24.7 mmol/L (22.0-26.0) Arterial Blood Oxygen Saturation 95.1 % (92.0-98.0) Arterial Blood Base Excess 0 Simba Test Positive Microbiology Date/Time Source Procedure Growth Status 08/14/17 10:30 Thoracic Fluid Received 08/14/17 10:30 Thoracic Fluid Received 08/14/17 10:30 Thoracic Fluid Received Murali Victoria M.D. Aug 14, 2017 15:00
--- NOTE | 2017-08-14 15:20 | GI Progress Note ---
Assessment/Plan Problems: (1) Polysubstance (excluding opioids) dependence ICD Codes: F19.20 - Other psychoactive substance dependence, uncomplicated SNOMED: 82888198 (2) Hepatitis C ICD Codes: B19.20 - Unspecified viral hepatitis C without hepatic coma SNOMED: 83372698 (3) Constipated ICD Codes: K59.00 - Constipation, unspecified SNOMED: 90011941 (4) Hyponatremia ICD Codes: E87.1 - Hypo-osmolality and hyponatremia SNOMED: 90104213 (5) HIV (human immunodeficiency virus infection) ICD Codes: B20 - Human immunodeficiency virus [HIV] disease SNOMED: 09709959 (6) Abdominal pain ICD Codes: R10.9 - Unspecified abdominal pain SNOMED: 01268255 Qualifiers: Qualified Codes: R10.32 - Left lower quadrant pain Status: unchanged Status Narrative Discussed with Dr. Lee. Assessment/Plan CT reviewed >> - Small left pleural effusion and left basilar atelectasis and possibly some consolidation - No definite acute abdominal or pelvic process - No CT evidence of significant constipation - Colonic diverticulosis. No evidence of diverticulitis - Mildly hypoattenuating liver, consistent with fatty change - prominent prostate, with nonspecific hypoattenuation HIV positive hep C antibody positive Utox positive for cocaine, MJ, amphetamines OB negative s/p Bronchoscopy, left video-assisted thoracoscopic surgery, exploratory >> now in ICU monitor H&H, prn transfusions bowel regime ppi fu labs outpatient GI procedures The patient was seen and examined at bedside and all new and available data was reviewed in the patients chart. I agree with the above findings, impression and plan. (Patient seen earlier today. Signature stamp does not reflect patient encounter time.). - Matthew Lee MD Subjective Gastrointestinal/Abdominal: Reports: no symptoms Objective Last 24 Hour Vital Signs Date Time Temp Pulse Resp B/P (MAP) Pulse Ox O2 Delivery O2 Flow Rate FiO2 08/14/17 14:00 73 20 99/56 94 T-piece 3.0 08/14/17 13:00 77 20 90/52 100 Nasal Cannula 3.0 08/14/17 12:26 82 08/14/17 12:00 97.8 87 20 91/53 100 Non-Rebreather 100 97.8 08/14/17 12:00 82 24 91/53 100 Non-Rebreather 100 08/14/17 11:41 98.2 08/14/17 11:01 208.8 91 18 90 08/14/17 11:00 95 24 90/57 100 Non-Rebreather 100 08/14/17 10:30 97.5 92 24 102/64 96 Non-Rebreather 100 97.5 08/14/17 07:50 96 Nasal Cannula 2.0 28 08/14/17 07:50 Nasal Cannula 2.0 28 08/14/17 06:44 98.0 08/14/17 06:14 98.0 08/14/17 04:00 98.0 82 17 107/56 91 Nasal Cannula 98.0 08/14/17 00:00 99.5 92 18 104/55 90 Nasal Cannula 99.5 08/13/17 20:39 Nasal Cannula 2.0 28 08/13/17 20:39 96 Nasal Cannula 2.0 28 08/13/17 20:00 98.6 92 20 106/60 91 Nasal Cannula 2.0 98.6 08/13/17 16:00 98.0 87 20 105/60 98 Nasal Cannula 2.0 98.0 Intake and Output 08/13/17 08/14/17 19:00 07:00 # Voids 1 4 # Bowel Movements 2 Laboratory Tests Test 08/14/17 05:25 08/14/17 11:10 08/14/17 11:20 White Blood Count 16.4 K/UL (4.8-10.8) H 27.3 K/UL (4.8-10.8) #*H Red Blood Count 3.93 M/UL (4.70-6.10) L 3.94 M/UL (4.70-6.10) L Hemoglobin 12.1 G/DL (14.2-18.0) L 11.6 G/DL (14.2-18.0) L Hematocrit 34.7 % (42.0-52.0) L 34.8 % (42.0-52.0) L Mean Corpuscular Volume 88 FL (80-99) 88 FL (80-99) Mean Corpuscular Hemoglobin 30.8 PG (27.0-31.0) 29.5 PG (27.0-31.0) Mean Corpuscular Hemoglobin Concent 34.8 G/DL (32.0-36.0) 33.4 G/DL (32.0-36.0) Red Cell Distribution Width 11.7 % (11.6-14.8) 11.7 % (11.6-14.8) Platelet Count 337 K/UL (150-450) 407 K/UL (150-450) Mean Platelet Volume 5.7 FL (6.5-10.1) L 6.1 FL (6.5-10.1) L Neutrophils (%) (Auto) 82.9 % (45.0-75.0) H % (45.0-75.0) Lymphocytes (%) (Auto) 10.8 % (20.0-45.0) L % (20.0-45.0) Monocytes (%) (Auto) 5.2 % (1.0-10.0) % (1.0-10.0) Eosinophils (%) (Auto) 0.4 % (0.0-3.0) % (0.0-3.0) Basophils (%) (Auto) 0.7 % (0.0-2.0) % (0.0-2.0) Prothrombin Time 11.8 SEC (9.30-11.50) H Prothromb Time International Ratio 1.1 (0.9-1.1) Activated Partial Thromboplast Time 30 SEC (23-33) Sodium Level 130 MMOL/L (136-145) L 129 MMOL/L (136-145) L Potassium Level 3.7 MMOL/L (3.5-5.1) 4.0 MMOL/L (3.5-5.1) Chloride Level 96 MMOL/L (98-107) L 95 MMOL/L (98-107) L Carbon Dioxide Level 27 MMOL/L (21-32) 25 MMOL/L (21-32) Anion Gap 7 mmol/L (5-15) 9 mmol/L (5-15) Blood Urea Nitrogen 10 mg/dL (7-18) 11 mg/dL (7-18) Creatinine 0.8 MG/DL (0.55-1.30) 0.9 MG/DL (0.55-1.30) Estimat Glomerular Filtration Rate > 60 mL/min (>60) > 60 mL/min (>60) Glucose Level 111 MG/DL (74-106) H 201 MG/DL (74-106) H Calcium Level 7.9 MG/DL (8.5-10.1) L 7.6 MG/DL (8.5-10.1) L Total Bilirubin 0.4 MG/DL (0.2-1.0) 0.4 MG/DL (0.2-1.0) Aspartate Amino Transf (AST/SGOT) 29 U/L (15-37) 26 U/L (15-37) Alanine Aminotransferase (ALT/SGPT) 37 U/L (12-78) 33 U/L (12-78) Alkaline Phosphatase 99 U/L (46-116) 97 U/L (46-116) Pro-B-Type Natriuretic Peptide 25 pg/mL (0-125) Total Protein 6.9 G/DL (6.4-8.2) 6.8 G/DL (6.4-8.2) Albumin 1.7 G/DL (3.4-5.0) L 1.6 G/DL (3.4-5.0) L Globulin 5.2 g/dL 5.2 g/dL Albumin/Globulin Ratio 0.3 (1.0-2.7) L 0.3 (1.0-2.7) L Differential Total Cells Counted 100 Neutrophils % (Manual) 88 % (45-75) H Lymphocytes % (Manual) 4 % (20-45) L Monocytes % (Manual) 4 % (1-10) Eosinophils % (Manual) 0 % (0-3) Basophils % (Manual) 0 % (0-2) Band Neutrophils 4 % (0-8) Platelet Estimate Increased H Platelet Morphology Normal Red Blood Cell Morphology Normal Arterial Blood pH 7.403 (7.350-7.450) Arterial Blood Partial Pressure CO2 40.5 mmHg (35.0-45.0) Arterial Blood Partial Pressure O2 82.2 mmHg (75.0-100.0) Arterial Blood HCO3 24.7 mmol/L (22.0-26.0) Arterial Blood Oxygen Saturation 95.1 % (92.0-98.0) Arterial Blood Base Excess 0 Simba Test Positive Microbiology Date/Time Source Procedure Growth Status 08/14/17 10:30 Thoracic Fluid Received 08/14/17 10:30 Thoracic Fluid Received 08/14/17 10:30 Thoracic Fluid Received Height (Feet): 5 Height (Inches): 8.00 Weight (Pounds): 160 General Appearance: WD/WN, no apparent distress, alert Cardiovascular: normal rate Respiratory/Chest: normal breath sounds, no respiratory distress, other Abdominal Exam: normal bowel sounds, non tender, soft Extremities: normal range of motion, non-tender Objective Rupinder Moseley NP Aug 14, 2017 15:20
[2017-08-14] MEDS: Ketorolac 30mg Inj IV PRN ×2 (16:08→20:51)
[2017-08-14] MEDS ORDERED: Tubing IV Secondary IV ONE (16:10)
[2017-08-14] MEDS ORDERED: NS 500ML ONE (16:10)
[2017-08-14] MEDS ORDERED: Miralax 17gm pkt ORAL SCH (21:00)
--- NOTE | 2017-08-14 21:15 | Operative Note - Dictated ---
DATE OF OPERATION: 08/14/2017 SURGEON: Abel Grimes M.D. PREOPERATIVE DIAGNOSIS: Left empyema. POSTOPERATIVE DIAGNOSIS: Left empyema. PROCEDURE PERFORMED: 1. Flexible bronchoscopy. 2. Left video-assisted thoracoscopic surgery. 3. Intrapleural pneumolysis. 4. Partial pleurectomy. 5. Decortication. 6. Intercostal nerve block. ANESTHESIA: Double-lumen general anesthesia. INDICATION: The patient is a 56-year-old male, who was admitted to [facility] with fevers and chills as well as radiographic imaging studies suggestive of left empyema. He was taken to the operating room for definitive care. The risks and benefits of the proposed operation were explained to the patient in detail including, but not limited to bleeding, infection, air leak, and need for blood transfusion, anesthetic complication, and of less than 1%. In addition, alternatives versus no treatment option were also discussed. The patient fully understands the rationale behind the proposed operation. All questions answered to his satisfaction. DESCRIPTION OF PROCEDURE: After obtaining the informed consent, the patient was brought to the operating room and placed in supine position and a surgical time-out was performed. After induction of general anesthesia, indwelling arterial line and CHANDA hose stockings were placed. A flexible bronchoscope was introduced through the endotracheal tube. The trachea and christopher were inspected. The christopher was midline and sharp. The right tracheobronchial tree down to the subsegmental level was grossly normal and no endobronchial lesions were seen. Similarly, the left mainstem bronchus was intubated. No obvious endobronchial lesions were visualized at the subsegmental level. A minimal amount of mucopurulent secretion was lavaged and suctioned clear. The bronchoscope was pulled back and removed. Patient tolerated the procedure well with oxygen saturation greater than 96% throughout the procedure. Next, the patient was then placed in a right lateral decubitus position and prepped and draped in the usual sterile fashion. The patient also received preoperative intravenous antibiotic. A 1.5 cm incision was made at the fifth intercostal space, mid axillary line. Dissection was then carried down into the subcutaneous tissue. A counterincision was made just anterior to the third intercostal space. This allowed introduction of a grasper into the left hemithorax. Under direct visualization, the sucker was then passed into the left hemithorax and the pleural effusion was then suctioned off; a sales support representative section of this effusion was submitted for microbiologic analysis. We then proceeded to examine the left intrathoracic cavity. There were noted to be numerous adhesions tethering along to the surrounding chest wall. These adhesions were taken down using a combination of sharp and blunt electrocauterization. After freeing the lung from the surrounding chest wall, there was noted to be numerous pleural exudate and these were debrided off the chest wall and delivered off the field; a sales support representative section of this pleural exudate was also submitted for microbiologic analysis. A partial pleurectomy was undertaken to strip away the infected pleura; this was then delivered out of the field and sectioned in half; half of the parietal pleura was submitted for microbiology analysis and the remaining was submitted for permanent section. The lung was then examined. The disease appears to be localized in the left lower lobe as the left upper lobe was virtually spared. Decortication process was then begun beginning in the anterior lateral surface of the lung parenchyma and carried posterolaterally. At the end of the decortication process, the chest was then irrigated with 4 liters of warm saline solution. After suctioning, the chest was then irrigated again with 6 liters of bacitracin saline solution. After suctioning, pneumostasis and hemostasis were assured. Intercostal nerve block with 40 mL of 0.25% Marcaine was administered from the second intercostal space in the usual fashion. A 28-Beninese chest tube was inserted into the left hemithorax and directed at the apex. The chest was anchored at the skin level using #0 Ethibond sutures x2 and then connected to a suction Pleur-evac. The wound was then reapproximated with 2 layers of 3-0 Vicryl suture and the skin was reapproximated with 4-0 Monocryl. Steri-Strips and dry dressing were applied. The patient tolerated the procedure well without any complications. Needle and sponges were correct at the end of the operation. He was then extubated and transported to the ICU in a satisfactory condition. EBL: Minimum. COMPLICATIONS: None. SPECIMEN SUBMITTED: Left pleural effusion for microbiology analysis and cytology. Left pleural exudate for microbiologic analysis and left parietal pleura for microbiologic analysis and pathology. Mane M.D. DR: ANDRA JOB#: [id number] CC: KRISH
[2017-08-15] VITALS (22 sets, daily range): BP systolic 93–144; BP diastolic 39–84
[2017-08-15] MEDS: Oxacillin 2 GM in NS 110 ML IVPB SCH ×6 (01:35→21:38)
[2017-08-15] MEDS: Ketorolac 30mg Inj IV PRN ×4 (03:51→18:01)
[2017-08-15 06:15] LABS: BASOPHILS % (AUTO) 0.3 % (0.0-2.0); EOSINOPHILS % (AUTO) 0.2 % (0.0-3.0); HEMATOCRIT 28.7 % (42.0-52.0); HEMOGLOBIN 9.7 G/DL (14.2-18.0); LYMPHOCYTES % (AUTO) 12.5 % (20.0-45.0); MEAN CORPUSCULAR VOLUME 88 FL (80-99); MONOCYTES % (AUTO) 4.2 % (1.0-10.0); NEUTROPHILS % (AUTO) 82.9 % (45.0-75.0); PLATELET COUNT 306 K/UL (150-450); RED BLOOD COUNT 3.25 M/UL (4.70-6.10); RED CELL DISTRIBUTION WIDTH 11.7 % (11.6-14.8); WHITE BLOOD COUNT 13.6 K/UL (4.8-10.8)
[2017-08-15 07:23] LABS: ALANINE AMINOTRANSFERASE 27 U/L (12-78); ALBUMIN 1.4 G/DL (3.4-5.0); ALBUMIN/GLOBULIN RATIO 0.3 (1.0-2.7); ALKALINE PHOSPHATASE 76 U/L (46-116); ANION GAP 6 mmol/L (5-15); ASPARTATE AMINO TRANSFERASE 22 U/L (15-37); BILIRUBIN,TOTAL 0.2 MG/DL (0.2-1.0); BLOOD UREA NITROGEN 17 mg/dL (7-18); CALCIUM 6.9 MG/DL (8.5-10.1); CARBON DIOXIDE 29 MMOL/L (21-32); CHLORIDE 103 MMOL/L (98-107); CREATININE 0.8 MG/DL (0.55-1.30); PHOSPHORUS 2.6 MG/DL (2.5-4.9); POTASSIUM 3.6 MMOL/L (3.5-5.1); SODIUM 138 MMOL/L (136-145)
[2017-08-15] MEDS: Docusate 100mg cap ORAL SCH ×2 (08:28→18:01)
[2017-08-15] MEDS: Heparin 5000 units/ml inj SUBQ SCH ×2 (08:29→21:02)
--- NOTE | 2017-08-15 09:22 | General Progress Note ---
Assessment/Plan Problem List: (1) HIV (human immunodeficiency virus infection) ICD Codes: B20 - Human immunodeficiency virus [HIV] disease SNOMED: 72745915 (2) Abdominal pain ICD Codes: R10.9 - Unspecified abdominal pain SNOMED: 95545769 Qualifiers: Qualified Codes: R10.32 - Left lower quadrant pain (3) Constipated ICD Codes: K59.00 - Constipation, unspecified SNOMED: 55313542 (4) Hepatitis C ICD Codes: B19.20 - Unspecified viral hepatitis C without hepatic coma SNOMED: 77152833 (5) Hypoalbuminemia ICD Codes: E88.09 - Other disorders of plasma-protein metabolism, not elsewhere classified SNOMED: 344978330 (6) Bacteremia ICD Codes: R78.81 - Bacteremia SNOMED: 1588704 Status: progressing Assessment/Plan afebrile hiv sepsis in icu reviewed chart and labs Subjective ROS Limited/Unobtainable: Yes Allergies: Coded Allergies: No Known Allergies (Unverified , 08/06/17) Objective Last 24 Hour Vital Signs Date Time Temp Pulse Resp B/P (MAP) Pulse Ox O2 Delivery O2 Flow Rate FiO2 08/15/17 09:00 72 19 110/57 98 Nasal Cannula 3.0 08/15/17 08:00 97.8 77 18 110/84 97 Nasal Cannula 3.0 97.8 08/15/17 07:00 98 Nasal Cannula 3.0 32 08/15/17 07:00 84 19 103/45 95 Nasal Cannula 3.0 08/15/17 07:00 Nasal Cannula 3.0 32 08/15/17 06:00 78 13 115/48 97 Nasal Cannula 3.0 08/15/17 05:00 76 16 93/50 97 Nasal Cannula 3.0 08/15/17 04:03 78 08/15/17 04:00 97.5 80 18 109/55 96 Nasal Cannula 3.0 97.5 08/15/17 03:00 77 15 97/44 96 Nasal Cannula 3.0 08/15/17 02:00 69 19 98/44 97 Nasal Cannula 3.0 08/15/17 01:07 71 08/15/17 01:00 66 14 93/39 94 Nasal Cannula 3.0 08/15/17 00:00 97.7 63 12 112/54 97 Nasal Cannula 3.0 97.7 08/14/17 23:00 68 13 89/42 95 Nasal Cannula 3.0 08/14/17 22:00 64 13 103/50 97 Nasal Cannula 3.0 08/14/17 21:48 97 Nasal Cannula 3.0 32 08/14/17 21:48 Nasal Cannula 3.0 32 08/14/17 21:00 69 17 103/57 96 Nasal Cannula 3.0 08/14/17 20:00 97.5 60 14 99/56 97 Nasal Cannula 3.0 97.5 08/14/17 19:53 63 08/14/17 19:00 61 14 93/51 98 Nasal Cannula 3.0 08/14/17 18:00 65 14 91/53 96 Nasal Cannula 3.0 08/14/17 17:00 68 20 105/57 94 Nasal Cannula 3.0 08/14/17 16:38 98.1 08/14/17 16:08 98.1 08/14/17 16:00 69 08/14/17 15:56 98.1 74 20 107/49 95 Nasal Cannula 3.0 98.1 08/14/17 15:00 69 20 82/53 94 Nasal Cannula 3.0 08/14/17 14:00 73 20 99/56 94 Nasal Cannula 3.0 08/14/17 13:00 77 20 90/52 100 Nasal Cannula 3.0 08/14/17 12:26 82 08/14/17 12:00 97.8 87 20 91/53 100 Non-Rebreather 100 97.8 08/14/17 12:00 82 24 91/53 100 Non-Rebreather 100 08/14/17 11:41 98.2 08/14/17 11:01 208.8 91 18 90 08/14/17 11:00 95 24 90/57 100 Non-Rebreather 100 08/14/17 10:30 97.5 92 24 102/64 96 Non-Rebreather 100 97.5 Intake and Output 08/14/17 08/15/17 19:00 07:00 Intake Total 1245 ml 1970 ml Output Total 410 ml 768 ml Balance 835 ml 1202 ml Intake Oral 650 ml 620 ml IV Total 595 ml 1230 ml Other 120 ml Output Urine Total 325 ml 660 ml Chest Tube Drainage Total 85 ml 108 ml # Voids 1 Laboratory Tests 08/14/17 11:10: White Blood Count 27.3#*H, Red Blood Count 3.94L, Hemoglobin 11.6L, Hematocrit 34.8L, Mean Corpuscular Volume 88, Mean Corpuscular Hemoglobin 29.5, Mean Corpuscular Hemoglobin Concent 33.4, Red Cell Distribution Width 11.7, Platelet Count 407, Mean Platelet Volume 6.1L, Neutrophils (%) (Auto) , Lymphocytes (%) ( Auto) , Monocytes (%) (Auto) , Eosinophils (%) (Auto) , Basophils (%) (Auto) , Differential Total Cells Counted 100, Neutrophils % (Manual) 88H, Lymphocytes % (Manual) 4L, Monocytes % (Manual) 4, Eosinophils % (Manual) 0, Basophils % ( Manual) 0, Band Neutrophils 4, Platelet Estimate IncreasedH, Platelet Morphology Normal, Red Blood Cell Morphology Normal, Sodium Level 129L, Potassium Level 4.0, Chloride Level 95L, Carbon Dioxide Level 25, Anion Gap 9, Blood Urea Nitrogen 11, Creatinine 0.9, Estimat Glomerular Filtration Rate > 60 , Glucose Level 201H, Calcium Level 7.6L, Total Bilirubin 0.4, Aspartate Amino Transf (AST/SGOT) 26, Alanine Aminotransferase (ALT/SGPT) 33, Alkaline Phosphatase 97, Total Protein 6.8, Albumin 1.6L, Globulin 5.2, Albumin/Globulin Ratio 0.3L 08/14/17 11:20: Arterial Blood pH 7.403, Arterial Blood Partial Pressure CO2 40.5, Arterial Blood Partial Pressure O2 82.2, Arterial Blood HCO3 24.7, Arterial Blood Oxygen Saturation 95.1, Arterial Blood Base Excess 0, Simba Test Positive 08/15/17 04:00: Arterial Blood pH 7.471H, Arterial Blood Partial Pressure CO2 36.9, Arterial Blood Partial Pressure O2 68.0L, Arterial Blood HCO3 26.3H, Arterial Blood Oxygen Saturation 93.4, Arterial Blood Base Excess 2.8, Simba Test Positive 08/15/17 05:05: White Blood Count 13.6#H, Red Blood Count 3.25L, Hemoglobin 9.7L, Hematocrit 28.7L, Mean Corpuscular Volume 88, Mean Corpuscular Hemoglobin 30.0, Mean Corpuscular Hemoglobin Concent 33.9, Red Cell Distribution Width 11.7, Platelet Count 306, Mean Platelet Volume 6.3L, Neutrophils (%) (Auto) 82.9H, Lymphocytes (%) (Auto) 12.5L, Monocytes (%) (Auto) 4.2, Eosinophils (%) (Auto) 0.2, Basophils (%) (Auto) 0.3, Sodium Level 138, Potassium Level 3.6, Chloride Level 103, Carbon Dioxide Level 29, Anion Gap 6, Blood Urea Nitrogen 17, Creatinine 0.8, Estimat Glomerular Filtration Rate > 60, Glucose Level 140H, Calcium Level 6.9L, Total Bilirubin 0.2, Aspartate Amino Transf (AST/SGOT) 22, Alanine Aminotransferase (ALT/SGPT) 27, Alkaline Phosphatase 76, Total Protein 5.4L, Albumin 1.4L, Globulin 4.0, Albumin/Globulin Ratio 0.3L, Osmolality 290L, Uric Acid 2.8, Phosphorus Level 2.6, Magnesium Level 2.4, C-Reactive Protein, Quantitative 15.9H, Pro-B-Type Natriuretic Peptide 106 Height (Feet): 5 Height (Inches): 8.00 Weight (Pounds): 160 Cardiovascular: normal rate Respiratory/Chest: lungs clear Violette Rogers MD Aug 15, 2017 09:22
--- NOTE | 2017-08-15 10:08 | Pulmonolgy Critical Care Note ---
Critical Care - Asmt/Plan Problems: (1) Empyema (2) Thoracostomy tube in place (3) Bacteremia (4) COPD (chronic obstructive pulmonary disease) (5) HIV (human immunodeficiency virus infection) Respiratory: monitor respiratory rate, adjust FIO2, CXR Cardiac: continue pressors, continue to monitor HR/BP Renal: F/U I&O, keep IV fluid Infectious Disease: check cultures Gastrointestinal: continue feedings/current rate Endocrine: monitor blood sugar, check TSH Hematologic: monitor H/H, transfuse if hgb<8.5 Neurologic: PRN Ativan, keep patient comfortable Affect: PRN ativan Prophylaxis: Protonix Disposition: keep in ICU Notes Reviewed: cardio Discussed with: nurses, consultants, case hardener, family member Critical Care - Objective Last 24 Hour Vital Signs Date Time Temp Pulse Resp B/P (MAP) Pulse Ox O2 Delivery O2 Flow Rate FiO2 08/15/17 09:00 72 19 110/57 98 Nasal Cannula 3.0 08/15/17 08:00 97.8 77 18 110/84 97 Nasal Cannula 3.0 97.8 08/15/17 07:00 98 Nasal Cannula 3.0 32 08/15/17 07:00 84 19 103/45 95 Nasal Cannula 3.0 08/15/17 07:00 Nasal Cannula 3.0 32 08/15/17 06:00 78 13 115/48 97 Nasal Cannula 3.0 08/15/17 05:00 76 16 93/50 97 Nasal Cannula 3.0 08/15/17 04:03 78 08/15/17 04:00 97.5 80 18 109/55 96 Nasal Cannula 3.0 97.5 08/15/17 03:00 77 15 97/44 96 Nasal Cannula 3.0 08/15/17 02:00 69 19 98/44 97 Nasal Cannula 3.0 08/15/17 01:07 71 08/15/17 01:00 66 14 93/39 94 Nasal Cannula 3.0 08/15/17 00:00 97.7 63 12 112/54 97 Nasal Cannula 3.0 97.7 08/14/17 23:00 68 13 89/42 95 Nasal Cannula 3.0 08/14/17 22:00 64 13 103/50 97 Nasal Cannula 3.0 08/14/17 21:48 97 Nasal Cannula 3.0 32 08/14/17 21:48 Nasal Cannula 3.0 32 08/14/17 21:00 69 17 103/57 96 Nasal Cannula 3.0 08/14/17 20:00 97.5 60 14 99/56 97 Nasal Cannula 3.0 97.5 08/14/17 19:53 63 08/14/17 19:00 61 14 93/51 98 Nasal Cannula 3.0 08/14/17 18:00 65 14 91/53 96 Nasal Cannula 3.0 08/14/17 17:00 68 20 105/57 94 Nasal Cannula 3.0 08/14/17 16:38 98.1 08/14/17 16:08 98.1 08/14/17 16:00 69 08/14/17 15:56 98.1 74 20 107/49 95 Nasal Cannula 3.0 98.1 08/14/17 15:00 69 20 82/53 94 Nasal Cannula 3.0 08/14/17 14:00 73 20 99/56 94 Nasal Cannula 3.0 08/14/17 13:00 77 20 90/52 100 Nasal Cannula 3.0 08/14/17 12:26 82 08/14/17 12:00 97.8 87 20 91/53 100 Non-Rebreather 100 97.8 08/14/17 12:00 82 24 91/53 100 Non-Rebreather 100 08/14/17 11:41 98.2 08/14/17 11:01 208.8 91 18 90 08/14/17 11:00 95 24 90/57 100 Non-Rebreather 100 08/14/17 10:30 97.5 92 24 102/64 96 Non-Rebreather 100 97.5 Status: awake Condition: critical, improving Neck: full ROM Lungs: clear Heart: HR/BP stable Abdomen: soft, active bowel sounds Extremities: no C/C/E Decubiti: location, stage Micro: Microbiology Date/Time Source Procedure Growth Status 08/13/17 18:05 Blood Blood Culture - Preliminary NO GROWTH AFTER 24 HOURS Resulted 08/13/17 18:00 Blood Blood Culture - Preliminary NO GROWTH AFTER 24 HOURS Resulted 08/14/17 10:30 Thoracic Fluid Received 08/14/17 10:30 Thoracic Fluid Received 08/14/17 10:30 Thoracic Fluid Received Critical Care - Subjective ROS Limited/Unobtainable: Yes Condition: critical EKG Rhythm: Sinus Rhythm FI02: 32 Sputum Amount: None I&O: Intake and Output 08/14/17 08/15/17 19:00 07:00 Intake Total 1245 ml 1970 ml Output Total 410 ml 768 ml Balance 835 ml 1202 ml Intake Oral 650 ml 620 ml IV Total 595 ml 1230 ml Other 120 ml Output Urine Total 325 ml 660 ml Chest Tube Drainage Total 85 ml 108 ml # Voids 1 CXR: chest tube in place Labs: Laboratory Tests Test 08/14/17 11:10 08/14/17 11:20 08/15/17 04:00 08/15/17 05:05 White Blood Count 27.3 K/UL (4.8-10.8) #*H 13.6 K/UL (4.8-10.8) #H Red Blood Count 3.94 M/UL (4.70-6.10) L 3.25 M/UL (4.70-6.10) L Hemoglobin 11.6 G/DL (14.2-18.0) L 9.7 G/DL (14.2-18.0) L Hematocrit 34.8 % (42.0-52.0) L 28.7 % (42.0-52.0) L Mean Corpuscular Volume 88 FL (80-99) 88 FL (80-99) Mean Corpuscular Hemoglobin 29.5 PG (27.0-31.0) 30.0 PG (27.0-31.0) Mean Corpuscular Hemoglobin Concent 33.4 G/DL (32.0-36.0) 33.9 G/DL (32.0-36.0) Red Cell Distribution Width 11.7 % (11.6-14.8) 11.7 % (11.6-14.8) Platelet Count 407 K/UL (150-450) 306 K/UL (150-450) Mean Platelet Volume 6.1 FL (6.5-10.1) L 6.3 FL (6.5-10.1) L Neutrophils (%) (Auto) % (45.0-75.0) 82.9 % (45.0-75.0) H Lymphocytes (%) (Auto) % (20.0-45.0) 12.5 % (20.0-45.0) L Monocytes (%) (Auto) % (1.0-10.0) 4.2 % (1.0-10.0) Eosinophils (%) (Auto) % (0.0-3.0) 0.2 % (0.0-3.0) Basophils (%) (Auto) % (0.0-2.0) 0.3 % (0.0-2.0) Differential Total Cells Counted 100 Neutrophils % (Manual) 88 % (45-75) H Lymphocytes % (Manual) 4 % (20-45) L Monocytes % (Manual) 4 % (1-10) Eosinophils % (Manual) 0 % (0-3) Basophils % (Manual) 0 % (0-2) Band Neutrophils 4 % (0-8) Platelet Estimate Increased H Platelet Morphology Normal Red Blood Cell Morphology Normal Sodium Level 129 MMOL/L (136-145) L 138 MMOL/L (136-145) Potassium Level 4.0 MMOL/L (3.5-5.1) 3.6 MMOL/L (3.5-5.1) Chloride Level 95 MMOL/L (98-107) L 103 MMOL/L (98-107) Carbon Dioxide Level 25 MMOL/L (21-32) 29 MMOL/L (21-32) Anion Gap 9 mmol/L (5-15) 6 mmol/L (5-15) Blood Urea Nitrogen 11 mg/dL (7-18) 17 mg/dL (7-18) Creatinine 0.9 MG/DL (0.55-1.30) 0.8 MG/DL (0.55-1.30) Estimat Glomerular Filtration Rate > 60 mL/min (>60) > 60 mL/min (>60) Glucose Level 201 MG/DL (74-106) H 140 MG/DL (74-106) H Calcium Level 7.6 MG/DL (8.5-10.1) L 6.9 MG/DL (8.5-10.1) L Total Bilirubin 0.4 MG/DL (0.2-1.0) 0.2 MG/DL (0.2-1.0) Aspartate Amino Transf (AST/SGOT) 26 U/L (15-37) 22 U/L (15-37) Alanine Aminotransferase (ALT/SGPT) 33 U/L (12-78) 27 U/L (12-78) Alkaline Phosphatase 97 U/L (46-116) 76 U/L (46-116) Total Protein 6.8 G/DL (6.4-8.2) 5.4 G/DL (6.4-8.2) L Albumin 1.6 G/DL (3.4-5.0) L 1.4 G/DL (3.4-5.0) L Globulin 5.2 g/dL 4.0 g/dL Albumin/Globulin Ratio 0.3 (1.0-2.7) L 0.3 (1.0-2.7) L Arterial Blood pH 7.403 (7.350-7.450) 7.471 (7.350-7.450) Arterial Blood Partial Pressure CO2 40.5 mmHg (35.0-45.0) 36.9 mmHg (35.0-45.0) Arterial Blood Partial Pressure O2 82.2 mmHg (75.0-100.0) 68.0 mmHg (75.0-100.0) L Arterial Blood HCO3 24.7 mmol/L (22.0-26.0) 26.3 mmol/L (22.0-26.0) H Arterial Blood Oxygen Saturation 95.1 % (92.0-98.0) 93.4 % (92.0-98.0) Arterial Blood Base Excess 0 2.8 Simba Test Positive Positive Osmolality 290 mOsm/kg (297-317) L Uric Acid 2.8 MG/DL (2.6-7.2) Phosphorus Level 2.6 MG/DL (2.5-4.9) Magnesium Level 2.4 MG/DL (1.8-2.4) C-Reactive Protein, Quantitative 15.9 mg/dL (0.00-0.90) H Pro-B-Type Natriuretic Peptide 106 pg/mL (0-125) Sally Cox MD Aug 15, 2017 10:08
--- NOTE | 2017-08-15 12:55 | Cardiology Progress Note ---
Assessment/Plan Assessment/Plan HIV HEP C HTN Assessment COPD Asthma Constipation Hyponatemia Sepsis Pneumonia Plan Reviewed TTE - no evidence of endocarditis, valvular destruction/regurgitation, no evidence of septic emboli, He does not have osler node, septic pulmonary infarcts, ICH, conjunctival hemorrhages, janeway lesions He does have a hx of drug use, positive blood cultures, and fevers (albeit broke with antibiotics) , and hx of IV drug use He has a moderate pre test probability of IE ( 1 major, 2 minor) My recommendations are if he has persistent fevers/blood cultures on antibiotics we should proceed with NURA to determine course of therapy, until NURA is done treat as if he has endocarditis since he has persistent positive cultures. If his cultures do not clear he may need surgery, nothing seen on TTE , may opt to re check until NURA is done -> PLACED ORDER TO RE CHECK TTE TO EVALUATE FOR ABSCESS AND VALVULAR DISFUNCTION WBC coming down and cultures negative, follow up pleural cultures Continue Abx Pain control PT/OT DVT GI prophylaxis Subjective Subjective No acute events, no complaints, low blood pressures Blood culture from 08/13 negative, WBC coming down Chest tube to suction pain controlled, no acute events, tolerating PO, abx running Objective Last 24 Hour Vital Signs Date Time Temp Pulse Resp B/P (MAP) Pulse Ox O2 Delivery O2 Flow Rate FiO2 08/15/17 12:00 98.1 77 18 110/53 98 Nasal Cannula 3.0 98.1 08/15/17 11:00 80 18 113/49 98 Nasal Cannula 3.0 08/15/17 10:00 76 19 107/50 98 Nasal Cannula 3.0 08/15/17 09:00 72 19 110/57 98 Nasal Cannula 3.0 08/15/17 08:00 97.8 77 18 110/84 97 Nasal Cannula 3.0 97.8 08/15/17 08:00 74 08/15/17 07:00 98 Nasal Cannula 3.0 32 08/15/17 07:00 84 19 103/45 95 Nasal Cannula 3.0 08/15/17 07:00 Nasal Cannula 3.0 32 08/15/17 06:00 78 13 115/48 97 Nasal Cannula 3.0 08/15/17 05:00 76 16 93/50 97 Nasal Cannula 3.0 08/15/17 04:03 78 08/15/17 04:00 97.5 80 18 109/55 96 Nasal Cannula 3.0 97.5 08/15/17 03:00 77 15 97/44 96 Nasal Cannula 3.0 08/15/17 02:00 69 19 98/44 97 Nasal Cannula 3.0 08/15/17 01:07 71 08/15/17 01:00 66 14 93/39 94 Nasal Cannula 3.0 08/15/17 00:00 97.7 63 12 112/54 97 Nasal Cannula 3.0 97.7 08/14/17 23:00 68 13 89/42 95 Nasal Cannula 3.0 08/14/17 22:00 64 13 103/50 97 Nasal Cannula 3.0 08/14/17 21:48 97 Nasal Cannula 3.0 32 08/14/17 21:48 Nasal Cannula 3.0 32 08/14/17 21:00 69 17 103/57 96 Nasal Cannula 3.0 08/14/17 20:00 97.5 60 14 99/56 97 Nasal Cannula 3.0 97.5 08/14/17 19:53 63 08/14/17 19:00 61 14 93/51 98 Nasal Cannula 3.0 08/14/17 18:00 65 14 91/53 96 Nasal Cannula 3.0 08/14/17 17:00 68 20 105/57 94 Nasal Cannula 3.0 08/14/17 16:38 98.1 08/14/17 16:08 98.1 08/14/17 16:00 69 08/14/17 15:56 98.1 74 20 107/49 95 Nasal Cannula 3.0 98.1 08/14/17 15:00 69 20 82/53 94 Nasal Cannula 3.0 08/14/17 14:00 73 20 99/56 94 Nasal Cannula 3.0 08/14/17 13:00 77 20 90/52 100 Nasal Cannula 3.0 General Appearance: no apparent distress EENT: PERRL/EOMI Neck: non-tender Rhythm: NSR Cardiovascular: normal peripheral pulses Respiratory/Chest: chest wall non-tender, lungs clear Abdomen: normal bowel sounds Extremities: normal range of motion Intake and Output 08/14/17 08/15/17 19:00 07:00 Intake Total 1245 ml 1970 ml Output Total 410 ml 768 ml Balance 835 ml 1202 ml Intake Oral 650 ml 620 ml IV Total 595 ml 1230 ml Other 120 ml Output Urine Total 325 ml 660 ml Chest Tube Drainage Total 85 ml 108 ml # Voids 1 Laboratory Tests Test 08/15/17 04:00 08/15/17 05:05 Arterial Blood pH 7.471 (7.350-7.450) Arterial Blood Partial Pressure CO2 36.9 mmHg (35.0-45.0) Arterial Blood Partial Pressure O2 68.0 mmHg (75.0-100.0) L Arterial Blood HCO3 26.3 mmol/L (22.0-26.0) H Arterial Blood Oxygen Saturation 93.4 % (92.0-98.0) Arterial Blood Base Excess 2.8 Simba Test Positive White Blood Count 13.6 K/UL (4.8-10.8) #H Red Blood Count 3.25 M/UL (4.70-6.10) L Hemoglobin 9.7 G/DL (14.2-18.0) L Hematocrit 28.7 % (42.0-52.0) L Mean Corpuscular Volume 88 FL (80-99) Mean Corpuscular Hemoglobin 30.0 PG (27.0-31.0) Mean Corpuscular Hemoglobin Concent 33.9 G/DL (32.0-36.0) Red Cell Distribution Width 11.7 % (11.6-14.8) Platelet Count 306 K/UL (150-450) Mean Platelet Volume 6.3 FL (6.5-10.1) L Neutrophils (%) (Auto) 82.9 % (45.0-75.0) H Lymphocytes (%) (Auto) 12.5 % (20.0-45.0) L Monocytes (%) (Auto) 4.2 % (1.0-10.0) Eosinophils (%) (Auto) 0.2 % (0.0-3.0) Basophils (%) (Auto) 0.3 % (0.0-2.0) Sodium Level 138 MMOL/L (136-145) Potassium Level 3.6 MMOL/L (3.5-5.1) Chloride Level 103 MMOL/L (98-107) Carbon Dioxide Level 29 MMOL/L (21-32) Anion Gap 6 mmol/L (5-15) Blood Urea Nitrogen 17 mg/dL (7-18) Creatinine 0.8 MG/DL (0.55-1.30) Estimat Glomerular Filtration Rate > 60 mL/min (>60) Glucose Level 140 MG/DL (74-106) H Osmolality 290 mOsm/kg (297-317) L Uric Acid 2.8 MG/DL (2.6-7.2) Calcium Level 6.9 MG/DL (8.5-10.1) L Phosphorus Level 2.6 MG/DL (2.5-4.9) Magnesium Level 2.4 MG/DL (1.8-2.4) Total Bilirubin 0.2 MG/DL (0.2-1.0) Aspartate Amino Transf (AST/SGOT) 22 U/L (15-37) Alanine Aminotransferase (ALT/SGPT) 27 U/L (12-78) Alkaline Phosphatase 76 U/L (46-116) C-Reactive Protein, Quantitative 15.9 mg/dL (0.00-0.90) H Pro-B-Type Natriuretic Peptide 106 pg/mL (0-125) Total Protein 5.4 G/DL (6.4-8.2) L Albumin 1.4 G/DL (3.4-5.0) L Globulin 4.0 g/dL Albumin/Globulin Ratio 0.3 (1.0-2.7) L Microbiology Date/Time Source Procedure Growth Status 08/13/17 18:05 Blood Blood Culture - Preliminary NO GROWTH AFTER 24 HOURS Resulted 08/13/17 18:00 Blood Blood Culture - Preliminary NO GROWTH AFTER 24 HOURS Resulted 08/14/17 10:30 Body Fluid Lt Lung (Pleura) AFB Specimen Processing Tissue - Final Resulted 08/14/17 10:30 Body Fluid Lt Lung (Pleura) Acid Fast Bacilli Smear - Final Resulted 08/14/17 10:30 Body Fluid Lt Lung (Pleura) Acid Fast Bacilli Culture Pending Resulted 08/14/17 10:30 Body Fluid Lt Lung (Pleura) AFB Specimen Processing Tissue - Final Resulted 08/14/17 10:30 Body Fluid Lt Lung (Pleura) Acid Fast Bacilli Smear - Final Resulted 08/14/17 10:30 Body Fluid Lt Lung (Pleura) Acid Fast Bacilli Culture Pending Resulted 08/14/17 10:30 Thoracic Fluid Gram Stain - Final Resulted 08/14/17 10:30 Thoracic Fluid Aerobic Culture - Preliminary Resulted 08/14/17 10:30 Thoracic Fluid Anaerobic Culture - Preliminary Resulted 08/14/17 10:30 Thoracic Fluid Gram Stain - Final Resulted 08/14/17 10:30 Thoracic Fluid Surgical Biopsy Culture - Preliminary Resulted 08/14/17 10:30 Thoracic Fluid Anaerobic Culture - Preliminary Resulted 08/14/17 10:30 Thoracic Fluid Gram Stain - Final Resulted 08/14/17 10:30 Thoracic Fluid Surgical Biopsy Culture - Preliminary Resulted 08/14/17 10:30 Thoracic Fluid Anaerobic Culture - Preliminary Resulted 08/14/17 10:30 Lung Left AFB Specimen Processing Tissue - Final Resulted 08/14/17 10:30 Lung Left Acid Fast Bacilli Smear - Final Resulted 08/14/17 10:30 Lung Left Acid Fast Bacilli Culture Pending Resulted Murali Victoria M.D. Aug 15, 2017 12:55
--- NOTE | 2017-08-15 13:16 | 48 Hour Post Anesthesia Eval ---
Post Anesthesia Evaluation Procedure: L VATS Date of Evaluation: Aug 15, 2017 Time of Evaluation: 12:00 Blood Pressure Systolic: 110 0: 53 Pulse Rate: 77 Respiratory Rate: 18 Temperature (Fahrenheit): 98.1 O2 Sat by Pulse Oximetry: 98 Airway: patent Nausea: No Vomiting: No Pain Intensity: 6 If pain is > 6 Comment: nursing currently giving pain meds Hydration Status: adequate Mental Status/LOC: patient returned to baseline Post-Anesthesia Complications: none Follow-up care needed: N/A Martha Raphael M.D. Aug 15, 2017 13:16
--- NOTE | 2017-08-15 13:38 | GI Progress Note ---
Assessment/Plan Problems: (1) Polysubstance (excluding opioids) dependence ICD Codes: F19.20 - Other psychoactive substance dependence, uncomplicated SNOMED: 42455730 (2) Hepatitis C ICD Codes: B19.20 - Unspecified viral hepatitis C without hepatic coma SNOMED: 65967700 (3) Constipated ICD Codes: K59.00 - Constipation, unspecified SNOMED: 95881090 (4) Hyponatremia ICD Codes: E87.1 - Hypo-osmolality and hyponatremia SNOMED: 23640126 (5) HIV (human immunodeficiency virus infection) ICD Codes: B20 - Human immunodeficiency virus [HIV] disease SNOMED: 00345303 (6) Abdominal pain ICD Codes: R10.9 - Unspecified abdominal pain SNOMED: 08657689 Qualifiers: Qualified Codes: R10.32 - Left lower quadrant pain Status: stable, unchanged Status Narrative Discussed with Dr. Lee. Assessment/Plan CT reviewed >> - Small left pleural effusion and left basilar atelectasis and possibly some consolidation - No definite acute abdominal or pelvic process - No CT evidence of significant constipation - Colonic diverticulosis. No evidence of diverticulitis - Mildly hypoattenuating liver, consistent with fatty change - prominent prostate, with nonspecific hypoattenuation HIV positive hep C antibody positive Utox positive for cocaine, MJ, amphetamines OB negative s/p Bronchoscopy, left video-assisted thoracoscopic surgery, exploratory >> now in ICU monitor H&H, prn transfusions bowel regime ppi fu labs outpatient GI procedures The patient was seen and examined at bedside and all new and available data was reviewed in the patients chart. I agree with the above findings, impression and plan. (Patient seen earlier today. Signature stamp does not reflect patient encounter time.). - Matthew Lee MD Subjective Gastrointestinal/Abdominal: Reports: no symptoms Objective Last 24 Hour Vital Signs Date Time Temp Pulse Resp B/P (MAP) Pulse Ox O2 Delivery O2 Flow Rate FiO2 08/15/17 13:16 208.6 77 18 98 08/15/17 13:00 78 15 113/54 98 Nasal Cannula 3.0 08/15/17 12:00 98.1 77 18 110/53 98 Nasal Cannula 3.0 98.1 08/15/17 11:00 80 18 113/49 98 Nasal Cannula 3.0 7/4/18 10:00 76 19 107/50 98 Nasal Cannula 3.0 08/15/17 09:00 72 19 110/57 98 Nasal Cannula 3.0 08/15/17 08:00 97.8 77 18 110/84 97 Nasal Cannula 3.0 97.8 08/15/17 08:00 74 08/15/17 07:00 98 Nasal Cannula 3.0 32 08/15/17 07:00 84 19 103/45 95 Nasal Cannula 3.0 08/15/17 07:00 Nasal Cannula 3.0 32 08/15/17 06:00 78 13 115/48 97 Nasal Cannula 3.0 08/15/17 05:00 76 16 93/50 97 Nasal Cannula 3.0 08/15/17 04:03 78 08/15/17 04:00 97.5 80 18 109/55 96 Nasal Cannula 3.0 97.5 08/15/17 03:00 77 15 97/44 96 Nasal Cannula 3.0 08/15/17 02:00 69 19 98/44 97 Nasal Cannula 3.0 08/15/17 01:07 71 08/15/17 01:00 66 14 93/39 94 Nasal Cannula 3.0 08/15/17 00:00 97.7 63 12 112/54 97 Nasal Cannula 3.0 97.7 08/14/17 23:00 68 13 89/42 95 Nasal Cannula 3.0 08/14/17 22:00 64 13 103/50 97 Nasal Cannula 3.0 08/14/17 21:48 97 Nasal Cannula 3.0 32 08/14/17 21:48 Nasal Cannula 3.0 32 08/14/17 21:00 69 17 103/57 96 Nasal Cannula 3.0 08/14/17 20:00 97.5 60 14 99/56 97 Nasal Cannula 3.0 97.5 08/14/17 19:53 63 18 19:00 61 14 93/51 98 Nasal Cannula 3.0 08/14/17 18:00 65 14 91/53 96 Nasal Cannula 3.0 08/14/17 17:00 68 20 105/57 94 Nasal Cannula 3.0 08/14/17 16:38 98.1 08/14/17 16:08 98.1 08/14/17 16:00 69 08/14/17 15:56 98.1 74 20 107/49 95 Nasal Cannula 3.0 98.1 08/14/17 15:00 69 20 82/53 94 Nasal Cannula 3.0 08/14/17 14:00 73 20 99/56 94 Nasal Cannula 3.0 Intake and Output 08/14/17 08/15/17 19:00 07:00 Intake Total 1245 ml 1970 ml Output Total 410 ml 768 ml Balance 835 ml 1202 ml Intake Oral 650 ml 620 ml IV Total 595 ml 1230 ml Other 120 ml Output Urine Total 325 ml 660 ml Chest Tube Drainage Total 85 ml 108 ml # Voids 1 Laboratory Tests Test 08/15/17 04:00 08/15/17 05:05 Arterial Blood pH 7.471 (7.350-7.450) Arterial Blood Partial Pressure CO2 36.9 mmHg (35.0-45.0) Arterial Blood Partial Pressure O2 68.0 mmHg (75.0-100.0) L Arterial Blood HCO3 26.3 mmol/L (22.0-26.0) H Arterial Blood Oxygen Saturation 93.4 % (92.0-98.0) Arterial Blood Base Excess 2.8 Simba Test Positive White Blood Count 13.6 K/UL (4.8-10.8) #H Red Blood Count 3.25 M/UL (4.70-6.10) L Hemoglobin 9.7 G/DL (14.2-18.0) L Hematocrit 28.7 % (42.0-52.0) L Mean Corpuscular Volume 88 FL (80-99) Mean Corpuscular Hemoglobin 30.0 PG (27.0-31.0) Mean Corpuscular Hemoglobin Concent 33.9 G/DL (32.0-36.0) Red Cell Distribution Width 11.7 % (11.6-14.8) Platelet Count 306 K/UL (150-450) Mean Platelet Volume 6.3 FL (6.5-10.1) L Neutrophils (%) (Auto) 82.9 % (45.0-75.0) H Lymphocytes (%) (Auto) 12.5 % (20.0-45.0) L Monocytes (%) (Auto) 4.2 % (1.0-10.0) Eosinophils (%) (Auto) 0.2 % (0.0-3.0) Basophils (%) (Auto) 0.3 % (0.0-2.0) Sodium Level 138 MMOL/L (136-145) Potassium Level 3.6 MMOL/L (3.5-5.1) Chloride Level 103 MMOL/L (98-107) Carbon Dioxide Level 29 MMOL/L (21-32) Anion Gap 6 mmol/L (5-15) Blood Urea Nitrogen 17 mg/dL (7-18) Creatinine 0.8 MG/DL (0.55-1.30) Estimat Glomerular Filtration Rate > 60 mL/min (>60) Glucose Level 140 MG/DL (74-106) H Osmolality 290 mOsm/kg (297-317) L Uric Acid 2.8 MG/DL (2.6-7.2) Calcium Level 6.9 MG/DL (8.5-10.1) L Phosphorus Level 2.6 MG/DL (2.5-4.9) Magnesium Level 2.4 MG/DL (1.8-2.4) Total Bilirubin 0.2 MG/DL (0.2-1.0) Aspartate Amino Transf (AST/SGOT) 22 U/L (15-37) Alanine Aminotransferase (ALT/SGPT) 27 U/L (12-78) Alkaline Phosphatase 76 U/L (46-116) C-Reactive Protein, Quantitative 15.9 mg/dL (0.00-0.90) H Pro-B-Type Natriuretic Peptide 106 pg/mL (0-125) Total Protein 5.4 G/DL (6.4-8.2) L Albumin 1.4 G/DL (3.4-5.0) L Globulin 4.0 g/dL Albumin/Globulin Ratio 0.3 (1.0-2.7) L Height (Feet): 5 Height (Inches): 8.00 Weight (Pounds): 160 General Appearance: WD/WN, no apparent distress, alert Cardiovascular: normal rate Respiratory/Chest: normal breath sounds, no respiratory distress Abdominal Exam: normal bowel sounds, non tender, soft Extremities: normal range of motion, non-tender Objective Rupinder Moseley NP Aug 15, 2017 13:38
--- NOTE | 2017-08-15 13:50 | Nephrology Progress Note ---
Assessment/Plan Problem List: (1) Hyponatremia (2) HIV (human immunodeficiency virus infection) (3) COPD (chronic obstructive pulmonary disease) (4) Hepatitis C (5) Drug abuse and dependence (6) Hypoalbuminemia Assessment Post VATs Sever HypoNatremia- na up to 138 HypoAlbuminemia HIV + Chronic Pain MultiDrug abuse: coccaine MJ Amphetamines Anemia COPD Hep C Plan VATS 7/ po fluid restriction Trial of 3% saline and PRN Lasix as needed monitor lytes K Mag Phos as needed per pulmonary Subjective ROS Limited/Unobtainable: No Constitutional: Reports: malaise Objective Objective Last 24 Hour Vital Signs Date Time Temp Pulse Resp B/P (MAP) Pulse Ox O2 Delivery O2 Flow Rate FiO2 08/15/17 13:16 208.6 77 18 98 08/15/17 13:00 78 15 113/54 98 Nasal Cannula 3.0 08/15/17 12:00 98.1 77 18 110/53 98 Nasal Cannula 3.0 98.1 08/15/17 11:00 80 18 113/49 98 Nasal Cannula 3.0 08/15/17 10:00 76 19 107/50 98 Nasal Cannula 3.0 08/15/17 09:00 72 19 110/57 98 Nasal Cannula 3.0 08/15/17 08:00 97.8 77 18 110/84 97 Nasal Cannula 3.0 97.8 08/15/17 08:00 74 08/15/17 07:00 98 Nasal Cannula 3.0 32 08/15/17 07:00 84 19 103/45 95 Nasal Cannula 3.0 08/15/17 07:00 Nasal Cannula 3.0 32 08/15/17 06:00 78 13 115/48 97 Nasal Cannula 3.0 08/15/17 05:00 76 16 93/50 97 Nasal Cannula 3.0 08/15/17 04:03 78 08/15/17 04:00 97.5 80 18 109/55 96 Nasal Cannula 3.0 97.5 08/15/17 03:00 77 15 97/44 96 Nasal Cannula 3.0 08/15/17 02:00 69 19 98/44 97 Nasal Cannula 3.0 08/15/17 01:07 71 08/15/17 01:00 66 14 93/39 94 Nasal Cannula 3.0 08/15/17 00:00 97.7 63 12 112/54 97 Nasal Cannula 3.0 97.7 08/14/17 23:00 68 13 89/42 95 Nasal Cannula 3.0 08/14/17 22:00 64 13 103/50 97 Nasal Cannula 3.0 08/14/17 21:48 97 Nasal Cannula 3.0 32 08/14/17 21:48 Nasal Cannula 3.0 32 08/14/17 21:00 69 17 103/57 96 Nasal Cannula 3.0 08/14/17 20:00 97.5 60 14 99/56 97 Nasal Cannula 3.0 97.5 08/14/17 19:53 63 08/14/17 19:00 61 14 93/51 98 Nasal Cannula 3.0 08/14/17 18:00 65 14 91/53 96 Nasal Cannula 3.0 08/14/17 17:00 68 20 105/57 94 Nasal Cannula 3.0 08/14/17 16:38 98.1 08/14/17 16:08 98.1 08/14/17 16:00 69 08/14/17 15:56 98.1 74 20 107/49 95 Nasal Cannula 3.0 98.1 08/14/17 15:00 69 20 82/53 94 Nasal Cannula 3.0 08/14/17 14:00 73 20 99/56 94 Nasal Cannula 3.0 Intake and Output 08/14/17 08/15/17 19:00 07:00 Intake Total 1245 ml 1970 ml Output Total 410 ml 768 ml Balance 835 ml 1202 ml Intake Oral 650 ml 620 ml IV Total 595 ml 1230 ml Other 120 ml Output Urine Total 325 ml 660 ml Chest Tube Drainage Total 85 ml 108 ml # Voids 1 Laboratory Tests 08/15/17 04:00: Arterial Blood pH 7.471H, Arterial Blood Partial Pressure CO2 36.9, Arterial Blood Partial Pressure O2 68.0L, Arterial Blood HCO3 26.3H, Arterial Blood Oxygen Saturation 93.4, Arterial Blood Base Excess 2.8, Simba Test Positive 08/15/17 05:05: White Blood Count 13.6#H, Red Blood Count 3.25L, Hemoglobin 9.7L, Hematocrit 28.7L, Mean Corpuscular Volume 88, Mean Corpuscular Hemoglobin 30.0, Mean Corpuscular Hemoglobin Concent 33.9, Red Cell Distribution Width 11.7, Platelet Count 306, Mean Platelet Volume 6.3L, Neutrophils (%) (Auto) 82.9H, Lymphocytes (%) (Auto) 12.5L, Monocytes (%) (Auto) 4.2, Eosinophils (%) (Auto) 0.2, Basophils (%) (Auto) 0.3, Sodium Level 138, Potassium Level 3.6, Chloride Level 103, Carbon Dioxide Level 29, Anion Gap 6, Blood Urea Nitrogen 17, Creatinine 0.8, Estimat Glomerular Filtration Rate > 60, Glucose Level 140H, Osmolality 290L, Uric Acid 2.8, Calcium Level 6.9L, Phosphorus Level 2.6, Magnesium Level 2.4, Total Bilirubin 0.2, Aspartate Amino Transf (AST/SGOT) 22, Alanine Aminotransferase (ALT/SGPT) 27, Alkaline Phosphatase 76, C-Reactive Protein, Quantitative 15.9H, Pro-B-Type Natriuretic Peptide 106, Total Protein 5.4L, Albumin 1.4L, Globulin 4.0, Albumin/Globulin Ratio 0.3L Height (Feet): 5 Height (Inches): 8.00 Weight (Pounds): 160 General Appearance: no apparent distress Cardiovascular: normal rate Respiratory/Chest: decreased breath sounds Abdomen: soft Objective no change JAMI KRISHNAMURTHY Aug 15, 2017 13:50
--- NOTE | 2017-08-15 14:58 | Infectious Diseases Prog Note ---
Assessment/Plan Assessment/Plan Assessment: Persistent MSSA Bacteremia- likely 2ry to empyema. Ro endocarditis (high risk) -s/p VATS, partial pleurectomy, decortication 08/14 -OR findings : Bronchoscopy: A minimal amount of mucopurulent secretion was lavaged and suctioned clear. No endobronchial lesions. -VATS: There were noted to be numerous adhesions tethering along to the surrounding chest wall. The disease appears to be localized in the left lower lobe as the left upper lobe was virtually spared. - cx p Empyema 08/10-CT chest Left pleural effusion. Scalloped appearance suggests loculation. Presence of gas bubbles suggest infection by gas-forming organism. Gas bubbles appear trapped within the fluid rather than floating nondependently , indicating the fluid may be highly viscous. 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 No definite acute abdominal or pelvic process. No CT evidence of significant constipation. Colonic diverticulosis. No evidence of diverticulitis. Mildly hypoattenuating liver, consistent with fatty change. 5 mm fat attenuation nodule is seen within the left adrenal. Prominent prostate, with nonspecific hypoattenuation. Subcentimeter low-attenuation left renal lesion, too small to characterize, most likely benign simple cysts. No further follow-up necessary Plan: - Cont IV Oxacillin ( AB Rx d# ) for MSSA bacteremia -08/10 SP Ceftriaxone d# 5 and IV Vancomycin #3 -08/06 SP Cefepime x1, Levaquin x1 -monitor LFTs -f/u Bcx x2 (last 08/13) -Recommend NURA to eval for endocarditis (high suspicion and to eval for perivalvular abscess) -f/u Lung tissue bacterial, fungal, AFB and pathology -Monitor CBC/BMP, temperatures -aspiration precautions -ICU care Discussed with RN. Subjective Allergies: Coded Allergies: No Known Allergies (Unverified , 08/06/17) Subjective in ICU afebrile at 3l WBC improving Objective Vital Signs Last 24 Hour Vital Signs Date Time Temp Pulse Resp B/P (MAP) Pulse Ox O2 Delivery O2 Flow Rate FiO2 08/15/17 14:00 79 15 118/40 98 Nasal Cannula 3.0 08/15/17 13:16 208.6 77 18 98 08/15/17 13:00 78 15 113/54 98 Nasal Cannula 3.0 08/15/17 12:00 98.1 77 18 110/53 98 Nasal Cannula 3.0 98.1 08/15/17 11:00 80 18 113/49 98 Nasal Cannula 3.0 08/15/17 10:00 76 19 107/50 98 Nasal Cannula 3.0 08/15/17 09:00 72 19 110/57 98 Nasal Cannula 3.0 08/15/17 08:00 97.8 77 18 110/84 97 Nasal Cannula 3.0 97.8 08/15/17 08:00 74 08/15/17 07:00 98 Nasal Cannula 3.0 32 08/15/17 07:00 84 19 103/45 95 Nasal Cannula 3.0 08/15/17 07:00 Nasal Cannula 3.0 32 08/15/17 06:00 78 13 115/48 97 Nasal Cannula 3.0 08/15/17 05:00 76 16 93/50 97 Nasal Cannula 3.0 08/15/17 04:03 78 08/15/17 04:00 97.5 80 18 109/55 96 Nasal Cannula 3.0 97.5 08/15/17 03:00 77 15 97/44 96 Nasal Cannula 3.0 08/15/17 02:00 69 19 98/44 97 Nasal Cannula 3.0 08/15/17 01:07 71 08/15/17 01:00 66 14 93/39 94 Nasal Cannula 3.0 08/15/17 00:00 97.7 63 12 112/54 97 Nasal Cannula 3.0 97.7 08/14/17 23:00 68 13 89/42 95 Nasal Cannula 3.0 08/14/17 22:00 64 13 103/50 97 Nasal Cannula 3.0 08/14/17 21:48 97 Nasal Cannula 3.0 32 08/14/17 21:48 Nasal Cannula 3.0 32 08/14/17 21:00 69 17 103/57 96 Nasal Cannula 3.0 08/14/17 20:00 97.5 60 14 99/56 97 Nasal Cannula 3.0 97.5 08/14/17 19:53 63 08/14/17 19:00 61 14 93/51 98 Nasal Cannula 3.0 08/14/17 18:00 65 14 91/53 96 Nasal Cannula 3.0 08/14/17 17:00 68 20 105/57 94 Nasal Cannula 3.0 08/14/17 16:38 98.1 08/14/17 16:08 98.1 08/14/17 16:00 69 08/14/17 15:56 98.1 74 20 107/49 95 Nasal Cannula 3.0 98.1 08/14/17 15:00 69 20 82/53 94 Nasal Cannula 3.0 Height (Feet): 5 Height (Inches): 8.00 Weight (Pounds): 160 Objective General Appearance: WD/WN HEENT: atraumatic Respiratory/Chest: chest wall non-tender, lungs clear Cardiovascular: normal peripheral pulses, normal rate Abdomen: normal bowel sounds, soft, non tender Skin: no rash Microbiology Date/Time Source Procedure Growth Status 08/13/17 18:05 Blood Blood Culture - Preliminary NO GROWTH AFTER 24 HOURS Resulted 08/13/17 18:00 Blood Blood Culture - Preliminary NO GROWTH AFTER 24 HOURS Resulted 08/14/17 10:30 Body Fluid Lt Lung (Pleura) AFB Specimen Processing Tissue - Final Resulted 08/14/17 10:30 Body Fluid Lt Lung (Pleura) Acid Fast Bacilli Smear - Final Resulted 08/14/17 10:30 Body Fluid Lt Lung (Pleura) Acid Fast Bacilli Culture Pending Resulted 08/14/17 10:30 Body Fluid Lt Lung (Pleura) AFB Specimen Processing Tissue - Final Resulted 08/14/17 10:30 Body Fluid Lt Lung (Pleura) Acid Fast Bacilli Smear - Final Resulted 08/14/17 10:30 Body Fluid Lt Lung (Pleura) Acid Fast Bacilli Culture Pending Resulted 08/14/17 10:30 Thoracic Fluid Gram Stain - Final Resulted 08/14/17 10:30 Thoracic Fluid Aerobic Culture - Preliminary Resulted 08/14/17 10:30 Thoracic Fluid Anaerobic Culture - Preliminary Resulted 08/14/17 10:30 Thoracic Fluid Gram Stain - Final Resulted 08/14/17 10:30 Thoracic Fluid Surgical Biopsy Culture - Preliminary Resulted 08/14/17 10:30 Thoracic Fluid Anaerobic Culture - Preliminary Resulted 08/14/17 10:30 Thoracic Fluid Gram Stain - Final Resulted 08/14/17 10:30 Thoracic Fluid Surgical Biopsy Culture - Preliminary Resulted 08/14/17 10:30 Thoracic Fluid Anaerobic Culture - Preliminary Resulted 08/14/17 10:30 Lung Left AFB Specimen Processing Tissue - Final Resulted 08/14/17 10:30 Lung Left Acid Fast Bacilli Smear - Final Resulted 08/14/17 10:30 Lung Left Acid Fast Bacilli Culture Pending Resulted Laboratory Tests Test 08/15/17 04:00 08/15/17 05:05 Arterial Blood pH 7.471 (7.350-7.450) Arterial Blood Partial Pressure CO2 36.9 mmHg (35.0-45.0) Arterial Blood Partial Pressure O2 68.0 mmHg (75.0-100.0) L Arterial Blood HCO3 26.3 mmol/L (22.0-26.0) H Arterial Blood Oxygen Saturation 93.4 % (92.0-98.0) Arterial Blood Base Excess 2.8 [place]ba Test Positive White Blood Count 13.6 K/UL (4.8-10.8) #H Red Blood Count 3.25 M/UL (4.70-6.10) L Hemoglobin 9.7 G/DL (14.2-18.0) L Hematocrit 28.7 % (42.0-52.0) L Mean Corpuscular Volume 88 FL (80-99) Mean Corpuscular Hemoglobin 30.0 PG (27.0-31.0) Mean Corpuscular Hemoglobin Concent 33.9 G/DL (32.0-36.0) Red Cell Distribution Width 11.7 % (11.6-14.8) Platelet Count 306 K/UL (150-450) Mean Platelet Volume 6.3 FL (6.5-10.1) L Neutrophils (%) (Auto) 82.9 % (45.0-75.0) H Lymphocytes (%) (Auto) 12.5 % (20.0-45.0) L Monocytes (%) (Auto) 4.2 % (1.0-10.0) Eosinophils (%) (Auto) 0.2 % (0.0-3.0) Basophils (%) (Auto) 0.3 % (0.0-2.0) Sodium Level 138 MMOL/L (136-145) Potassium Level 3.6 MMOL/L (3.5-5.1) Chloride Level 103 MMOL/L (98-107) Carbon Dioxide Level 29 MMOL/L (21-32) Anion Gap 6 mmol/L (5-15) Blood Urea Nitrogen 17 mg/dL (7-18) Creatinine 0.8 MG/DL (0.55-1.30) Estimat Glomerular Filtration Rate > 60 mL/min (>60) Glucose Level 140 MG/DL (74-106) H Osmolality 290 mOsm/kg (297-317) L Uric Acid 2.8 MG/DL (2.6-7.2) Calcium Level 6.9 MG/DL (8.5-10.1) L Phosphorus Level 2.6 MG/DL (2.5-4.9) Magnesium Level 2.4 MG/DL (1.8-2.4) Total Bilirubin 0.2 MG/DL (0.2-1.0) Aspartate Amino Transf (AST/SGOT) 22 U/L (15-37) Alanine Aminotransferase (ALT/SGPT) 27 U/L (12-78) Alkaline Phosphatase 76 U/L (46-116) C-Reactive Protein, Quantitative 15.9 mg/dL (0.00-0.90) H Pro-B-Type Natriuretic Peptide 106 pg/mL (0-125) Total Protein 5.4 G/DL (6.4-8.2) L Albumin 1.4 G/DL (3.4-5.0) L Globulin 4.0 g/dL Albumin/Globulin Ratio 0.3 (1.0-2.7) L Current Medications Medications (Trade) Dose Ordered Sig/Veronica Route PRN Reason Start Time Stop Time Status Last Admin Dose Admin Acetaminophen (Tylenol) 650 mg Q4H PRN ORAL fever (temp>100.5F) 08/14/17 14:15 09/05/17 14:14 Acetaminophen/ Hydrocodone Bitart ([place] 7.5/325) 1 tab Q4H PRN ORAL Mild Pain (Pain Scale 1-3) 08/14/17 14:00 08/21/17 13:59 Docusate Sodium (Colace) 100 mg TWICE A DAY ORAL 08/14/17 18:00 09/05/17 17:59 08/15/17 08:28 Heparin Sodium (Porcine) (Heparin 5000 units/ml) 5,000 units EVERY 12 HOURS SUBQ 08/14/17 21:00 09/05/17 20:59 08/15/17 08:29 Ketorolac Tromethamine (Toradol 30mg) 30 mg Q4H PRN IV Severe Pain (Pain Scale 7-10) 08/14/17 14:00 08/19/17 13:59 08/15/17 13:18 Lansoprazole (Prevacid) 30 mg DAILY ORAL 08/15/17 09:00 09/09/17 08:59 08/15/17 08:28 Metoclopramide HCl (Reglan) 10 mg Q6H PRN IVP Refractory N/V 08/14/17 16:15 09/05/17 14:14 Nitroglycerin (Ntg) 0.4 mg Q5M X 3 DOSES PRN SL Prn Chest Pain 08/14/17 11:45 09/05/17 14:14 Ondansetron HCl (Zofran) 4 mg Q6H PRN IVP Nausea & Vomiting 08/14/17 16:15 09/13/17 16:14 Oxacillin Sodium 2 gm/Sodium Chloride 110 ml @ 220 mls/hr Q4H IVPB 08/14/17 14:00 08/17/17 13:59 08/15/17 14:00 Polyethylene Glycol (Miralax) 17 gm BEDTIME ORAL 08/14/17 21:00 09/05/17 20:59 08/14/17 20:50 Potassium Chloride (K-Dur) 20 meq DAILY ORAL 08/15/17 09:00 09/09/17 08:59 08/15/17 08:45 Temazepam (Restoril) 15 mg HSPRN PRN ORAL Insomnia 08/15/17 11:30 08/18/17 11:29 Steph Crowder M.D. 4, 2018 14:58
[2017-08-15] MEDS ORDERED: Tubing IV Secondary IV ONE (16:39)
[2017-08-15] MEDS ORDERED: Albuterol/Ipratropium 3ml neb HHN SCH (17:00)
[2017-08-15] MEDS ORDERED: Albuterol/Ipratropium 3ml neb HHN PRN ×2 (17:00→19:41)
[2017-08-15] MEDS ORDERED: Metoclopramide 10mg/2ml Inj IVP PRN (19:42)
[2017-08-15] MEDS ORDERED: Nitroglycerin Subl 0.4mg tab SL PRN (19:42)
[2017-08-15] MEDS ORDERED: HYDROcodone/Acetamin 7.5/325 tab ORAL PRN (19:43)
[2017-08-15] MEDS: Miralax 17gm pkt ORAL SCH (21:00)
[2017-08-16] VITALS: BP 114/57
[2017-08-16] MEDS: Oxacillin 2 GM in NS 110 ML IVPB SCH ×6 (02:28→22:25)
[2017-08-16 04:00] VITALS: BP 128/58
[2017-08-16 06:19] LABS: BASOPHILS % (AUTO) 0.4 % (0.0-2.0); EOSINOPHILS % (AUTO) 0.5 % (0.0-3.0); HEMATOCRIT 31.3 % (42.0-52.0); HEMOGLOBIN 10.3 G/DL (14.2-18.0); LYMPHOCYTES % (AUTO) 15.3 % (20.0-45.0); MEAN CORPUSCULAR VOLUME 88 FL (80-99); MONOCYTES % (AUTO) 3.9 % (1.0-10.0); NEUTROPHILS % (AUTO) 79.8 % (45.0-75.0); PLATELET COUNT 373 K/UL (150-450); RED BLOOD COUNT 3.55 M/UL (4.70-6.10); RED CELL DISTRIBUTION WIDTH 11.7 % (11.6-14.8)
[2017-08-16 06:31] LABS: ALANINE AMINOTRANSFERASE 22 U/L (12-78); ALBUMIN 1.6 G/DL (3.4-5.0); ALBUMIN/GLOBULIN RATIO 0.3 (1.0-2.7); ALKALINE PHOSPHATASE 77 U/L (46-116); ANION GAP 5 mmol/L (5-15); ASPARTATE AMINO TRANSFERASE 18 U/L (15-37); BILIRUBIN,TOTAL 0.2 MG/DL (0.2-1.0); BLOOD UREA NITROGEN 9 mg/dL (7-18); CALCIUM 7.8 MG/DL (8.5-10.1); CARBON DIOXIDE 27 MMOL/L (21-32); CHLORIDE 103 MMOL/L (98-107); CREATININE 0.7 MG/DL (0.55-1.30); POTASSIUM 4.2 MMOL/L (3.5-5.1); SODIUM 135 MMOL/L (136-145)
[2017-08-16 08:00] VITALS: BP 113/58
[2017-08-16] MEDS: Heparin 5000 units/ml inj SUBQ SCH ×2 (09:25→21:25)
[2017-08-16] MEDS: Docusate 100mg cap ORAL SCH ×2 (09:25→17:59)
--- NOTE | 2017-08-16 10:33 | Pulmonology Progress Note ---
Assessment/Plan Problems: (1) Pleural effusion (2) Abdominal pain (3) Constipation (4) Hyponatremia (5) COPD (chronic obstructive pulmonary disease) (6) Hepatitis C (7) HIV (human immunodeficiency virus infection) Assessment/Plan chest tube still in BC positive for GPC , stap aureaus, last cultures are negative laxative, GI evaluation appreciated CXR in am respiratory treatment Hyponatremia w/u HIV studies, Hep C positive titrate fio2 to sat of 92% Subjective ROS Limited/Unobtainable: No Interval Events: chest tube still in place HEENT: Repors: no symptoms Cardiovascular: Reports: chest pain Allergies: Coded Allergies: No Known Allergies (Unverified , 08/06/17) Objective Last 24 Hour Vital Signs Date Time Temp Pulse Resp B/P (MAP) Pulse Ox O2 Delivery O2 Flow Rate FiO2 08/16/17 08:00 89 08/16/17 04:00 83 08/16/17 04:00 98.3 83 24 128/58 94 Nasal Cannula 3.0 98.3 08/16/17 03:15 97.9 08/16/17 02:14 97.8 08/16/17 00:00 97.9 80 24 114/57 95 Nasal Cannula 3.0 97.9 08/16/17 00:00 86 08/15/17 20:00 97.3 85 24 144/67 95 Nasal Cannula 3.0 97.3 08/15/17 20:00 Nasal Cannula 3.0 32 08/15/17 20:00 98 Nasal Cannula 3.0 32 08/15/17 20:00 85 08/15/17 19:00 81 20 123/56 98 Nasal Cannula 3.0 08/15/17 18:00 79 20 106/57 98 Nasal Cannula 3.0 08/15/17 17:00 80 18 126/70 98 Nasal Cannula 3.0 08/15/17 16:00 98.4 78 18 118/55 98 Nasal Cannula 3.0 98.4 08/15/17 16:00 76 08/15/17 15:00 82 16 106/75 98 Nasal Cannula 3.0 08/15/17 14:00 79 15 118/40 98 Nasal Cannula 3.0 08/15/17 13:16 208.6 77 18 98 08/15/17 13:00 78 15 113/54 98 Nasal Cannula 3.0 08/15/17 12:00 98.1 77 18 110/53 98 Nasal Cannula 3.0 98.1 08/15/17 11:00 80 18 113/49 98 Nasal Cannula 3.0 Intake and Output 08/15/17 08/16/17 19:00 07:00 Intake Total 1350 ml 570 ml Output Total 580 ml 240 ml Balance 770 ml 330 ml Intake Oral 1350 ml 240 ml IV Total 330 ml Output Urine Total 300 ml 240 ml Other 280 ml # Bowel Movements 1 General Appearance: WD/WN HEENT: normocephalic, atraumatic Respiratory/Chest: chest wall non-tender, lungs clear Cardiovascular: normal peripheral pulses, normal rate Abdomen: normal bowel sounds, soft, non tender Genitourinary: normal external genitalia Extremities: no cyanosis Skin: no lesions 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 Lymphatic: no neck adenopathy Microbiology Date/Time Source Procedure Growth Status 08/13/17 18:05 Blood Blood Culture - Preliminary NO GROWTH AFTER 48 HOURS Resulted 08/13/17 18:00 Blood Blood Culture - Preliminary NO GROWTH AFTER 48 HOURS Resulted 08/14/17 10:30 Body Fluid Lt Lung (Pleura) AFB Specimen Processing Tissue - Final Resulted 08/14/17 10:30 Body Fluid Lt Lung (Pleura) Acid Fast Bacilli Smear - Final Resulted 08/14/17 10:30 Body Fluid Lt Lung (Pleura) Acid Fast Bacilli Culture Pending Resulted 08/14/17 10:30 Body Fluid Lt Lung (Pleura) AFB Specimen Processing Tissue - Final Resulted 08/14/17 10:30 Body Fluid Lt Lung (Pleura) Acid Fast Bacilli Smear - Final Resulted 08/14/17 10:30 Body Fluid Lt Lung (Pleura) Acid Fast Bacilli Culture Pending Resulted 08/14/17 10:30 Thoracic Fluid Gram Stain - Final Resulted 08/14/17 10:30 Thoracic Fluid Aerobic Culture - Preliminary Resulted 08/14/17 10:30 Thoracic Fluid Anaerobic Culture - Preliminary Resulted 08/14/17 10:30 Thoracic Fluid Gram Stain - Final Resulted 08/14/17 10:30 Thoracic Fluid Surgical Biopsy Culture - Preliminary Resulted 08/14/17 10:30 Thoracic Fluid Anaerobic Culture - Preliminary Resulted 08/14/17 10:30 Thoracic Fluid Gram Stain - Final Resulted 08/14/17 10:30 Thoracic Fluid Surgical Biopsy Culture - Preliminary Resulted 08/14/17 10:30 Thoracic Fluid Anaerobic Culture - Preliminary Resulted 08/14/17 10:30 Lung Left AFB Specimen Processing Tissue - Final Resulted 08/14/17 10:30 Lung Left Acid Fast Bacilli Smear - Final Resulted 08/14/17 10:30 Lung Left Acid Fast Bacilli Culture Pending Resulted Laboratory Tests 08/16/17 05:27: White Blood Count 11.0H, Red Blood Count 3.55L, Hemoglobin 10.3L, Hematocrit 31.3L, Mean Corpuscular Volume 88, Mean Corpuscular Hemoglobin 29.0, Mean Corpuscular Hemoglobin Concent 32.9, Red Cell Distribution Width 11.7, Platelet Count 373, Mean Platelet Volume 5.7L, Neutrophils (%) (Auto) 79.8H, Lymphocytes (%) (Auto) 15.3L, Monocytes (%) (Auto) 3.9, Eosinophils (%) (Auto) 0.5, Basophils (%) (Auto) 0.4, Sodium Level 135L, Potassium Level 4.2, Chloride Level 103, Carbon Dioxide Level 27, Anion Gap 5, Blood Urea Nitrogen 9, Creatinine 0.7, Estimat Glomerular Filtration Rate > 60, Glucose Level 102, Calcium Level 7.8L, Total Bilirubin 0.2, Aspartate Amino Transf (AST/SGOT) 18, Alanine Aminotransferase (ALT/SGPT) 22, Alkaline Phosphatase 77, Pro-B-Type Natriuretic Peptide 498H, Total Protein 6.5, Albumin 1.6L, Globulin 4.9, Albumin /Globulin Ratio 0.3L Current Medications Medications (Trade) Dose Ordered Sig/Veronica Route PRN Reason Start Time Stop Time Status Last Admin Dose Admin Acetaminophen (Tylenol) 650 mg Q4H PRN ORAL fever (temp>100.5F) 08/15/17 19:41 09/05/17 19:40 Acetaminophen/ Hydrocodone Bitart ([place] 7.5/325) 1 tab Q4H PRN ORAL Mild Pain (Pain Scale 1-3) 08/15/17 19:43 08/21/17 19:42 08/16/17 02:14 Albuterol/ Ipratropium (Albuterol/ Ipratropium) 3 ml Q6H PRN HHN Shortness of breath 08/15/17 19:41 08/20/17 19:40 Docusate Sodium (Colace) 100 mg TWICE A DAY ORAL 08/16/17 09:00 09/15/17 08:59 08/16/17 09:25 Heparin Sodium (Porcine) (Heparin 5000 units/ml) 5,000 units EVERY 12 HOURS SUBQ 08/15/17 21:00 09/05/17 20:59 08/16/17 09:25 Ketorolac Tromethamine (Toradol 30mg) 30 mg Q4H PRN IV Severe Pain (Pain Scale 7-10) 08/15/17 19:44 08/19/17 19:43 Lansoprazole (Prevacid) 30 mg DAILY ORAL 08/16/17 09:00 09/09/17 08:59 08/16/17 09:25 Metoclopramide HCl (Reglan) 10 mg Q6H PRN IVP Refractory N/V 08/15/17 19:42 09/05/17 19:41 Nitroglycerin (Ntg) 0.4 mg Q5M X 3 DOSES PRN SL Prn Chest Pain 08/15/17 19:42 09/05/17 19:41 Ondansetron HCl (Zofran) 4 mg Q6H PRN IVP Nausea & Vomiting 08/15/17 19:42 09/13/17 19:41 Oxacillin Sodium 2 gm/Sodium Chloride 110 ml @ 220 mls/hr Q4H IVPB 08/15/17 22:00 08/17/17 13:59 08/16/17 09:53 Polyethylene Glycol (Miralax) 17 gm BEDTIME ORAL 08/15/17 21:00 09/05/17 20:59 08/15/17 21:00 Potassium Chloride (K-Dur) 20 meq DAILY ORAL 08/16/17 09:00 09/09/17 08:59 08/16/17 09:27 Temazepam (Restoril) 15 mg HSPRN PRN ORAL Insomnia 08/15/17 21:00 08/22/17 20:59 08/15/17 21:38 Sally Cox MD Aug 16, 2017 10:33
--- NOTE | 2017-08-16 10:42 | Cardiology Progress Note ---
Assessment/Plan Status: stable Assessment/Plan HIV HEP C HTN Assessment COPD Asthma Constipation Hyponatemia Sepsis Pneumonia Plan Reviewed TTE - no evidence of endocarditis, valvular destruction/regurgitation, no evidence of septic emboli, He does not have osler node, septic pulmonary infarcts, ICH, conjunctival hemorrhages, janeway lesions He does have a hx of drug use, positive blood cultures, and fevers (albeit broke with antibiotics) , and hx of IV drug use. He has a moderate pre test probability of IE ( 1 major, 2 minor) My recommendations are if he has persistent fevers/blood cultures on antibiotics we should proceed with NURA to determine course of therapy, until NURA is done treat as if he has endocarditis since he has persistent positive cultures. If his cultures do not clear he may need surgery, nothing seen on TTE , may opt to re check until NURA is done -> PLACED ORDER TO RE CHECK TTE TO EVALUATE FOR ABSCESS AND VALVULAR DISFUNCTION Since cultures are negative, WBC coming down, and fevers resolved - likely likely to have endocarditis at this juncture, will continue to monitor on antibiotics Follow up pleural cultures Continue Abx six weeks Pain control PT/OT DVT GI prophylaxis Subjective Cardiovascular: Reports: no symptoms Respiratory: Reports: no symptoms Gastrointestinal/Abdominal: Reports: no symptoms Genitourinary: Reports: no symptoms Subjective Complain of pain and wants more pain medicine Transferred to floor, no distress, chest tube to suction Blood culture from 08/13 negative, WBC coming down Continues to be on Abx Objective Last 24 Hour Vital Signs Date Time Temp Pulse Resp B/P (MAP) Pulse Ox O2 Delivery O2 Flow Rate FiO2 08/16/17 08:00 89 08/16/17 08:00 98.1 94 18 113/58 95 Nasal Cannula 2.0 98.1 08/16/17 04:00 83 08/16/17 04:00 98.3 83 24 128/58 94 Nasal Cannula 3.0 98.3 08/16/17 03:15 97.9 08/16/17 02:14 97.8 08/16/17 00:00 97.9 80 24 114/57 95 Nasal Cannula 3.0 97.9 08/16/17 00:00 86 08/15/17 20:00 97.3 85 24 144/67 95 Nasal Cannula 3.0 97.3 08/15/17 20:00 Nasal Cannula 3.0 32 08/15/17 20:00 98 Nasal Cannula 3.0 32 08/15/17 20:00 85 08/15/17 19:00 81 20 123/56 98 Nasal Cannula 3.0 08/15/17 18:00 79 20 106/57 98 Nasal Cannula 3.0 08/15/17 17:00 80 18 126/70 98 Nasal Cannula 3.0 08/15/17 16:00 98.4 78 18 118/55 98 Nasal Cannula 3.0 98.4 08/15/17 16:00 76 08/15/17 15:00 82 16 106/75 98 Nasal Cannula 3.0 08/15/17 14:00 79 15 118/40 98 Nasal Cannula 3.0 08/15/17 13:16 208.6 77 18 98 08/15/17 13:00 78 15 113/54 98 Nasal Cannula 3.0 08/15/17 12:00 98.1 77 18 110/53 98 Nasal Cannula 3.0 98.1 08/15/17 11:00 80 18 113/49 98 Nasal Cannula 3.0 General Appearance: no apparent distress EENT: PERRL/EOMI Neck: non-tender Rhythm: NSR Cardiovascular: normal peripheral pulses Respiratory/Chest: chest wall non-tender Abdomen: normal bowel sounds Extremities: non-tender 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 Intake and Output 08/15/17 08/16/17 19:00 07:00 Intake Total 1350 ml 570 ml Output Total 580 ml 240 ml Balance 770 ml 330 ml Intake Oral 1350 ml 240 ml IV Total 330 ml Output Urine Total 300 ml 240 ml Other 280 ml # Bowel Movements 1 Laboratory Tests Test 08/16/17 05:27 White Blood Count 11.0 K/UL (4.8-10.8) H Red Blood Count 3.55 M/UL (4.70-6.10) L Hemoglobin 10.3 G/DL (14.2-18.0) L Hematocrit 31.3 % (42.0-52.0) L Mean Corpuscular Volume 88 FL (80-99) Mean Corpuscular Hemoglobin 29.0 PG (27.0-31.0) Mean Corpuscular Hemoglobin Concent 32.9 G/DL (32.0-36.0) Red Cell Distribution Width 11.7 % (11.6-14.8) Platelet Count 373 K/UL (150-450) Mean Platelet Volume 5.7 FL (6.5-10.1) L Neutrophils (%) (Auto) 79.8 % (45.0-75.0) H Lymphocytes (%) (Auto) 15.3 % (20.0-45.0) L Monocytes (%) (Auto) 3.9 % (1.0-10.0) Eosinophils (%) (Auto) 0.5 % (0.0-3.0) Basophils (%) (Auto) 0.4 % (0.0-2.0) Sodium Level 135 MMOL/L (136-145) L Potassium Level 4.2 MMOL/L (3.5-5.1) Chloride Level 103 MMOL/L (98-107) Carbon Dioxide Level 27 MMOL/L (21-32) Anion Gap 5 mmol/L (5-15) Blood Urea Nitrogen 9 mg/dL (7-18) Creatinine 0.7 MG/DL (0.55-1.30) Estimat Glomerular Filtration Rate > 60 mL/min (>60) Glucose Level 102 MG/DL (74-106) Calcium Level 7.8 MG/DL (8.5-10.1) L Total Bilirubin 0.2 MG/DL (0.2-1.0) Aspartate Amino Transf (AST/SGOT) 18 U/L (15-37) Alanine Aminotransferase (ALT/SGPT) 22 U/L (12-78) Alkaline Phosphatase 77 U/L (46-116) Pro-B-Type Natriuretic Peptide 498 pg/mL (0-125) H Total Protein 6.5 G/DL (6.4-8.2) Albumin 1.6 G/DL (3.4-5.0) L Globulin 4.9 g/dL Albumin/Globulin Ratio 0.3 (1.0-2.7) L Microbiology Date/Time Source Procedure Growth Status 08/13/17 18:05 Blood Blood Culture - Preliminary NO GROWTH AFTER 48 HOURS Resulted 08/13/17 18:00 Blood Blood Culture - Preliminary NO GROWTH AFTER 48 HOURS Resulted 08/14/17 10:30 Body Fluid Lt Lung (Pleura) AFB Specimen Processing Tissue - Final Resulted 08/14/17 10:30 Body Fluid Lt Lung (Pleura) Acid Fast Bacilli Smear - Final Resulted 08/14/17 10:30 Body Fluid Lt Lung (Pleura) Acid Fast Bacilli Culture Pending Resulted 08/14/17 10:30 Body Fluid Lt Lung (Pleura) AFB Specimen Processing Tissue - Final Resulted 08/14/17 10:30 Body Fluid Lt Lung (Pleura) Acid Fast Bacilli Smear - Final Resulted 08/14/17 10:30 Body Fluid Lt Lung (Pleura) Acid Fast Bacilli Culture Pending Resulted 08/14/17 10:30 Thoracic Fluid Gram Stain - Final Resulted 08/14/17 10:30 Thoracic Fluid Aerobic Culture - Preliminary Resulted 08/14/17 10:30 Thoracic Fluid Anaerobic Culture - Preliminary Resulted 08/14/17 10:30 Thoracic Fluid Gram Stain - Final Resulted 08/14/17 10:30 Thoracic Fluid Surgical Biopsy Culture - Preliminary Resulted 08/14/17 10:30 Thoracic Fluid Anaerobic Culture - Preliminary Resulted 08/14/17 10:30 Thoracic Fluid Gram Stain - Final Resulted 08/14/17 10:30 Thoracic Fluid Surgical Biopsy Culture - Preliminary Resulted 08/14/17 10:30 Thoracic Fluid Anaerobic Culture - Preliminary Resulted 08/14/17 10:30 Lung Left AFB Specimen Processing Tissue - Final Resulted 08/14/17 10:30 Lung Left Acid Fast Bacilli Smear - Final Resulted 08/14/17 10:30 Lung Left Acid Fast Bacilli Culture Pending Resulted Murali Victoria M.D. Aug 16, 2017 10:42
[2017-08-16] MEDS: Ketorolac 30mg Inj IV PRN ×3 (11:01→22:26)
--- NOTE | 2017-08-16 11:01 | Diagnostic Imaging Report ---
Indication: Dyspnea Technique: XRAY Chest 1v Comparison: 08/15/2017 Findings: Apically oriented left chest tube unchanged in position. Subcutaneous emphysema along the left chest unchanged. No appreciable pneumothorax. Heart size and mediastinal contours stable. Interval decrease in linear opacities in the right mid and lower lung likely related to decreased atelectasis. Persistent streaky opacities in the left midlung. No acute osseous abnormality. Impression: Chest tube unchanged in position. No definite the thorax. It Administrative Assistant but decreased linear opacities in the right lower lung
--- NOTE | 2017-08-16 11:06 | Nephrology Progress Note ---
Assessment/Plan Problem List: (1) Hyponatremia (2) HIV (human immunodeficiency virus infection) (3) COPD (chronic obstructive pulmonary disease) (4) Hepatitis C (5) Drug abuse and dependence (6) Hypoalbuminemia Assessment Post VATs Sever HypoNatremia- na up to 135 HypoAlbuminemia HIV + Chronic Pain MultiDrug abuse: coccaine MJ Amphetamines Anemia COPD Hep C Plan VATS 7/ po fluid restriction Trial of 3% saline and PRN Lasix as needed monitor lytes K Mag Phos as needed per pulmonary Subjective ROS Limited/Unobtainable: No Constitutional: Reports: malaise Objective Objective Last 24 Hour Vital Signs Date Time Temp Pulse Resp B/P (MAP) Pulse Ox O2 Delivery O2 Flow Rate FiO2 08/16/17 11:01 98.1 08/16/17 08:00 89 08/16/17 08:00 98.1 94 18 113/58 95 Nasal Cannula 2.0 98.1 08/16/17 04:00 83 08/16/17 04:00 98.3 83 24 128/58 94 Nasal Cannula 3.0 98.3 08/16/17 03:15 97.9 08/16/17 02:14 97.8 08/16/17 00:00 97.9 80 24 114/57 95 Nasal Cannula 3.0 97.9 08/16/17 00:00 86 08/15/17 20:00 97.3 85 24 144/67 95 Nasal Cannula 3.0 97.3 08/15/17 20:00 Nasal Cannula 3.0 32 08/15/17 20:00 98 Nasal Cannula 3.0 32 08/15/17 20:00 85 08/15/17 19:00 81 20 123/56 98 Nasal Cannula 3.0 08/15/17 18:00 79 20 106/57 98 Nasal Cannula 3.0 08/15/17 17:00 80 18 126/70 98 Nasal Cannula 3.0 08/15/17 16:00 98.4 78 18 118/55 98 Nasal Cannula 3.0 98.4 08/15/17 16:00 76 08/15/17 15:00 82 16 106/75 98 Nasal Cannula 3.0 08/15/17 14:00 79 15 118/40 98 Nasal Cannula 3.0 08/15/17 13:16 208.6 77 18 98 08/15/17 13:00 78 15 113/54 98 Nasal Cannula 3.0 08/15/17 12:00 98.1 77 18 110/53 98 Nasal Cannula 3.0 98.1 Intake and Output 08/15/17 08/16/17 19:00 07:00 Intake Total 1350 ml 570 ml Output Total 580 ml 240 ml Balance 770 ml 330 ml Intake Oral 1350 ml 240 ml IV Total 330 ml Output Urine Total 300 ml 240 ml Other 280 ml # Bowel Movements 1 Laboratory Tests 08/16/17 05:27: White Blood Count 11.0H, Red Blood Count 3.55L, Hemoglobin 10.3L, Hematocrit 31.3L, Mean Corpuscular Volume 88, Mean Corpuscular Hemoglobin 29.0, Mean Corpuscular Hemoglobin Concent 32.9, Red Cell Distribution Width 11.7, Platelet Count 373, Mean Platelet Volume 5.7L, Neutrophils (%) (Auto) 79.8H, Lymphocytes (%) (Auto) 15.3L, Monocytes (%) (Auto) 3.9, Eosinophils (%) (Auto) 0.5, Basophils (%) (Auto) 0.4, Sodium Level 135L, Potassium Level 4.2, Chloride Level 103, Carbon Dioxide Level 27, Anion Gap 5, Blood Urea Nitrogen 9, Creatinine 0.7, Estimat Glomerular Filtration Rate > 60, Glucose Level 102, Calcium Level 7.8L, Total Bilirubin 0.2, Aspartate Amino Transf (AST/SGOT) 18, Alanine Aminotransferase (ALT/SGPT) 22, Alkaline Phosphatase 77, Pro-B-Type Natriuretic Peptide 498H, Total Protein 6.5, Albumin 1.6L, Globulin 4.9, Albumin /Globulin Ratio 0.3L Height (Feet): 5 Height (Inches): 8.00 Weight (Pounds): 160 General Appearance: no apparent distress Cardiovascular: normal rate Respiratory/Chest: decreased breath sounds, other - chest tube + Abdomen: distended Objective no change JAMI KRISHNAMURTHY Aug 16, 2017 11:06
[2017-08-16 12:00] VITALS: BP 125/66
--- NOTE | 2017-08-16 12:09 | Infectious Diseases Prog Note ---
Assessment/Plan Assessment/Plan Assessment: Persistent MSSA Bacteremia- likely 2ry to empyema. Ro endocarditis (high risk) -s/p VATS, partial pleurectomy, decortication 08/14 -OR findings : Bronchoscopy: A minimal amount of mucopurulent secretion was lavaged and suctioned clear. No endobronchial lesions. -VATS: There were noted to be numerous adhesions tethering along to the surrounding chest wall. The disease appears to be localized in the left lower lobe as the left upper lobe was virtually spared. - cx p Empyema -08/16 CXR: Subcutaneous emphysema along the left chest unchanged. No appreciable pneumothorax. Interval decrease in linear opacities in the right mid and lower lung likely related to decreased atelectasis. Persistent streaky opacities in the left midlung. No acute osseous abnormality. 08/10-CT chest Left pleural effusion. Scalloped appearance suggests loculation. Presence of gas bubbles suggest infection by gas-forming organism. Gas bubbles appear trapped within the fluid rather than floating nondependently , indicating the fluid may be highly viscous. 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 No definite acute abdominal or pelvic process. No CT evidence of significant constipation. Colonic diverticulosis. No evidence of diverticulitis. Mildly hypoattenuating liver, consistent with fatty change. 5 mm fat attenuation nodule is seen within the left adrenal. Prominent prostate, with nonspecific hypoattenuation. Subcentimeter low-attenuation left renal lesion, too small to characterize, most likely benign simple cysts. No further follow-up necessary Plan: - Cont IV Oxacillin ( AB Rx d# ) for MSSA bacteremia -08/10 SP Ceftriaxone d# 5 and IV Vancomycin #3 -08/06 SP Cefepime x1, Levaquin x1 -monitor LFTs -f/u Bcx x2 (last 08/13) -Recommend NURA to eval for endocarditis (high suspicion and to eval for perivalvular abscess) -f/u Lung tissue bacterial, fungal, AFB and pathology -Monitor CBC/BMP, temperatures -aspiration precautions Discussed with RN. Subjective Allergies: Coded Allergies: No Known Allergies (Unverified , 08/06/17) Subjective transferred to [facility] WBC improving afebrile at 2l NC Objective Vital Signs Last 24 Hour Vital Signs Date Time Temp Pulse Resp B/P (MAP) Pulse Ox O2 Delivery O2 Flow Rate FiO2 08/16/17 11:01 98.1 08/16/17 08:00 89 08/16/17 08:00 98.1 94 18 113/58 95 Nasal Cannula 2.0 98.1 08/16/17 04:00 83 08/16/17 04:00 98.3 83 24 128/58 94 Nasal Cannula 3.0 98.3 08/16/17 03:15 97.9 08/16/17 02:14 97.8 08/16/17 00:00 97.9 80 24 114/57 95 Nasal Cannula 3.0 97.9 08/16/17 00:00 86 08/15/17 20:00 97.3 85 24 144/67 95 Nasal Cannula 3.0 97.3 08/15/17 20:00 Nasal Cannula 3.0 32 08/15/17 20:00 98 Nasal Cannula 3.0 32 08/15/17 20:00 85 08/15/17 19:00 81 20 123/56 98 Nasal Cannula 3.0 08/15/17 18:00 79 20 106/57 98 Nasal Cannula 3.0 08/15/17 17:00 80 18 126/70 98 Nasal Cannula 3.0 08/15/17 16:00 98.4 78 18 118/55 98 Nasal Cannula 3.0 98.4 08/15/17 16:00 76 08/15/17 15:00 82 16 106/75 98 Nasal Cannula 3.0 08/15/17 14:00 79 15 118/40 98 Nasal Cannula 3.0 08/15/17 13:16 208.6 77 18 98 08/15/17 13:00 78 15 113/54 98 Nasal Cannula 3.0 Height (Feet): 5 Height (Inches): 8.00 Weight (Pounds): 160 Objective General Appearance: WD/WN HEENT: atraumatic Respiratory/Chest: chest wall non-tender, lungs clear Cardiovascular: normal peripheral pulses, normal rate Abdomen: normal bowel sounds, soft, non tender Skin: no rash Microbiology Date/Time Source Procedure Growth Status 08/13/17 18:05 Blood Blood Culture - Preliminary NO GROWTH AFTER 48 HOURS Resulted 08/13/17 18:00 Blood Blood Culture - Preliminary NO GROWTH AFTER 48 HOURS Resulted 08/14/17 10:30 Body Fluid Lt Lung (Pleura) AFB Specimen Processing Tissue - Final Resulted 08/14/17 10:30 Body Fluid Lt Lung (Pleura) Acid Fast Bacilli Smear - Final Resulted 08/14/17 10:30 Body Fluid Lt Lung (Pleura) Acid Fast Bacilli Culture Pending Resulted 08/14/17 10:30 Body Fluid Lt Lung (Pleura) AFB Specimen Processing Tissue - Final Resulted 08/14/17 10:30 Body Fluid Lt Lung (Pleura) Acid Fast Bacilli Smear - Final Resulted 08/14/17 10:30 Body Fluid Lt Lung (Pleura) Acid Fast Bacilli Culture Pending Resulted 08/14/17 10:30 Thoracic Fluid Gram Stain - Final Resulted 08/14/17 10:30 Thoracic Fluid Aerobic Culture - Preliminary Resulted 08/14/17 10:30 Thoracic Fluid Anaerobic Culture - Preliminary Resulted 08/14/17 10:30 Thoracic Fluid Gram Stain - Final Resulted 08/14/17 10:30 Thoracic Fluid Surgical Biopsy Culture - Preliminary Resulted 08/14/17 10:30 Thoracic Fluid Anaerobic Culture - Preliminary Resulted 08/14/17 10:30 Thoracic Fluid Gram Stain - Final Resulted 08/14/17 10:30 Thoracic Fluid Surgical Biopsy Culture - Preliminary Resulted 08/14/17 10:30 Thoracic Fluid Anaerobic Culture - Preliminary Resulted 08/14/17 10:30 Lung Left AFB Specimen Processing Tissue - Final Resulted 08/14/17 10:30 Lung Left Acid Fast Bacilli Smear - Final Resulted 08/14/17 10:30 Lung Left Acid Fast Bacilli Culture Pending Resulted Laboratory Tests Test 08/16/17 05:27 White Blood Count 11.0 K/UL (4.8-10.8) H Red Blood Count 3.55 M/UL (4.70-6.10) L Hemoglobin 10.3 G/DL (14.2-18.0) L Hematocrit 31.3 % (42.0-52.0) L Mean Corpuscular Volume 88 FL (80-99) Mean Corpuscular Hemoglobin 29.0 PG (27.0-31.0) Mean Corpuscular Hemoglobin Concent 32.9 G/DL (32.0-36.0) Red Cell Distribution Width 11.7 % (11.6-14.8) Platelet Count 373 K/UL (150-450) Mean Platelet Volume 5.7 FL (6.5-10.1) L Neutrophils (%) (Auto) 79.8 % (45.0-75.0) H Lymphocytes (%) (Auto) 15.3 % (20.0-45.0) L Monocytes (%) (Auto) 3.9 % (1.0-10.0) Eosinophils (%) (Auto) 0.5 % (0.0-3.0) Basophils (%) (Auto) 0.4 % (0.0-2.0) Sodium Level 135 MMOL/L (136-145) L Potassium Level 4.2 MMOL/L (3.5-5.1) Chloride Level 103 MMOL/L (98-107) Carbon Dioxide Level 27 MMOL/L (21-32) Anion Gap 5 mmol/L (5-15) Blood Urea Nitrogen 9 mg/dL (7-18) Creatinine 0.7 MG/DL (0.55-1.30) Estimat Glomerular Filtration Rate > 60 mL/min (>60) Glucose Level 102 MG/DL (74-106) Calcium Level 7.8 MG/DL (8.5-10.1) L Total Bilirubin 0.2 MG/DL (0.2-1.0) Aspartate Amino Transf (AST/SGOT) 18 U/L (15-37) Alanine Aminotransferase (ALT/SGPT) 22 U/L (12-78) Alkaline Phosphatase 77 U/L (46-116) Pro-B-Type Natriuretic Peptide 498 pg/mL (0-125) H Total Protein 6.5 G/DL (6.4-8.2) Albumin 1.6 G/DL (3.4-5.0) L Globulin 4.9 g/dL Albumin/Globulin Ratio 0.3 (1.0-2.7) L Current Medications Medications (Trade) Dose Ordered Sig/Veronica Route PRN Reason Start Time Stop Time Status Last Admin Dose Admin Acetaminophen (Tylenol) 650 mg Q4H PRN ORAL fever (temp>100.5F) 08/15/17 19:41 09/05/17 19:40 Acetaminophen/ Hydrocodone Bitart ([place] 7.5/325) 1 tab Q4H PRN ORAL Mild Pain (Pain Scale 1-3) 08/15/17 19:43 08/21/17 19:42 08/16/17 02:14 Albuterol/ Ipratropium (Albuterol/ Ipratropium) 3 ml Q6H PRN HHN Shortness of breath 08/15/17 19:41 08/20/17 19:40 Docusate Sodium (Colace) 100 mg TWICE A DAY ORAL 08/16/17 09:00 09/15/17 08:59 08/16/17 09:25 Heparin Sodium (Porcine) (Heparin 5000 units/ml) 5,000 units EVERY 12 HOURS SUBQ 08/15/17 21:00 09/05/17 20:59 08/16/17 09:25 Ketorolac Tromethamine (Toradol 30mg) 30 mg Q4H PRN IV Severe Pain (Pain Scale 7-10) 08/15/17 19:44 08/19/17 19:43 08/16/17 11:01 Lansoprazole (Prevacid) 30 mg DAILY ORAL 08/16/17 09:00 09/09/17 08:59 08/16/17 09:25 Metoclopramide HCl (Reglan) 10 mg Q6H PRN IVP Refractory N/V 08/15/17 19:42 09/05/17 19:41 Nitroglycerin (Ntg) 0.4 mg Q5M X 3 DOSES PRN SL Prn Chest Pain 08/15/17 19:42 09/05/17 19:41 Ondansetron HCl (Zofran) 4 mg Q6H PRN IVP Nausea & Vomiting 08/15/17 19:42 09/13/17 19:41 Oxacillin Sodium 2 gm/Sodium Chloride 110 ml @ 220 mls/hr Q4H IVPB 08/15/17 22:00 08/17/17 13:59 08/16/17 09:53 Polyethylene Glycol (Miralax) 17 gm BEDTIME ORAL 08/15/17 21:00 09/05/17 20:59 08/15/17 21:00 Potassium Chloride (K-Dur) 20 meq DAILY ORAL 08/16/17 09:00 09/09/17 08:59 08/16/17 09:27 Temazepam (Restoril) 15 mg HSPRN PRN ORAL Insomnia 08/15/17 21:00 08/22/17 20:59 08/15/17 21:38 Steph Crowder M.D. Aug 16, 2017 12:09
[2017-08-16] MEDS ORDERED: Guaifenesin/DM 10ml syrup ORAL PRN (12:15)
--- NOTE | 2017-08-16 13:30 | Diagnostic Imaging Report ---
Indication: Dyspnea Technique: XRAY Chest 1v Comparison: 08/14/2017 FINDINGS/IMPRESSION: Left chest tube unchanged in position. There is increased left chest wall subcutaneous emphysema. Persistent linear opacities in the left midlung. Interval decrease in hazy opacities on the right mid/lower lung with persistent linear opacities in this region. No definite pneumothorax. Heart size, mediastinal contours and osseous structures stable.
--- NOTE | 2017-08-16 15:16 | GI Progress Note ---
Assessment/Plan Problems: (1) Polysubstance (excluding opioids) dependence ICD Codes: F19.20 - Other psychoactive substance dependence, uncomplicated SNOMED: 55958491 (2) Hepatitis C ICD Codes: B19.20 - Unspecified viral hepatitis C without hepatic coma SNOMED: 76354879 (3) Constipated ICD Codes: K59.00 - Constipation, unspecified SNOMED: 51944437 (4) Hyponatremia ICD Codes: E87.1 - Hypo-osmolality and hyponatremia SNOMED: 31453224 (5) HIV (human immunodeficiency virus infection) ICD Codes: B20 - Human immunodeficiency virus [HIV] disease SNOMED: 08534360 (6) Abdominal pain ICD Codes: R10.9 - Unspecified abdominal pain SNOMED: 91882459 Qualifiers: Qualified Codes: R10.32 - Left lower quadrant pain Status: stable Status Narrative Discussed with Dr. Lee. Assessment/Plan CT reviewed >> - Small left pleural effusion and left basilar atelectasis and possibly some consolidation - No definite acute abdominal or pelvic process - No CT evidence of significant constipation - Colonic diverticulosis. No evidence of diverticulitis - Mildly hypoattenuating liver, consistent with fatty change - prominent prostate, with nonspecific hypoattenuation HIV positive hep C antibody positive Utox positive for cocaine, MJ, amphetamines OB negative s/p Bronchoscopy, left video-assisted thoracoscopic surgery, exploratory symptomatic treatment monitor H&H, prn transfusions bowel regime ppi fu labs outpatient GI procedures The patient was seen and examined at bedside and all new and available data was reviewed in the patients chart. I agree with the above findings, impression and plan. (Patient seen earlier today. Signature stamp does not reflect patient encounter time.). - Matthew Lee MD Subjective Gastrointestinal/Abdominal: Reports: no symptoms Subjective refusing care wants to go AMA Objective Last 24 Hour Vital Signs Date Time Temp Pulse Resp B/P (MAP) Pulse Ox O2 Delivery O2 Flow Rate FiO2 08/16/17 14:04 98.3 08/16/17 12:00 98.3 81 28 125/66 97 Nasal Cannula 2.0 98.3 08/16/17 11:01 98.1 08/16/17 08:00 89 08/16/17 08:00 98.1 94 18 113/58 95 Nasal Cannula 2.0 98.1 08/16/17 04:00 83 08/16/17 04:00 98.3 83 24 128/58 94 Nasal Cannula 3.0 98.3 08/16/17 03:15 97.9 08/16/17 02:14 97.8 08/16/17 00:00 97.9 80 24 114/57 95 Nasal Cannula 3.0 97.9 08/16/17 00:00 86 08/15/17 20:00 97.3 85 24 144/67 95 Nasal Cannula 3.0 97.3 08/15/17 20:00 Nasal Cannula 3.0 32 08/15/17 20:00 98 Nasal Cannula 3.0 32 08/15/17 20:00 85 08/15/17 19:00 81 20 123/56 98 Nasal Cannula 3.0 08/15/17 18:00 79 20 106/57 98 Nasal Cannula 3.0 08/15/17 17:00 80 18 126/70 98 Nasal Cannula 3.0 08/15/17 16:00 98.4 78 18 118/55 98 Nasal Cannula 3.0 98.4 08/15/17 16:00 76 Intake and Output 08/15/17 08/16/17 19:00 07:00 Intake Total 1350 ml 570 ml Output Total 580 ml 240 ml Balance 770 ml 330 ml Intake Oral 1350 ml 240 ml IV Total 330 ml Output Urine Total 300 ml 240 ml Other 280 ml # Bowel Movements 1 Laboratory Tests Test 08/16/17 05:27 White Blood Count 11.0 K/UL (4.8-10.8) H Red Blood Count 3.55 M/UL (4.70-6.10) L Hemoglobin 10.3 G/DL (14.2-18.0) L Hematocrit 31.3 % (42.0-52.0) L Mean Corpuscular Volume 88 FL (80-99) Mean Corpuscular Hemoglobin 29.0 PG (27.0-31.0) Mean Corpuscular Hemoglobin Concent 32.9 G/DL (32.0-36.0) Red Cell Distribution Width 11.7 % (11.6-14.8) Platelet Count 373 K/UL (150-450) Mean Platelet Volume 5.7 FL (6.5-10.1) L Neutrophils (%) (Auto) 79.8 % (45.0-75.0) H Lymphocytes (%) (Auto) 15.3 % (20.0-45.0) L Monocytes (%) (Auto) 3.9 % (1.0-10.0) Eosinophils (%) (Auto) 0.5 % (0.0-3.0) Basophils (%) (Auto) 0.4 % (0.0-2.0) Sodium Level 135 MMOL/L (136-145) L Potassium Level 4.2 MMOL/L (3.5-5.1) Chloride Level 103 MMOL/L (98-107) Carbon Dioxide Level 27 MMOL/L (21-32) Anion Gap 5 mmol/L (5-15) Blood Urea Nitrogen 9 mg/dL (7-18) Creatinine 0.7 MG/DL (0.55-1.30) Estimat Glomerular Filtration Rate > 60 mL/min (>60) Glucose Level 102 MG/DL (74-106) Calcium Level 7.8 MG/DL (8.5-10.1) L Total Bilirubin 0.2 MG/DL (0.2-1.0) Aspartate Amino Transf (AST/SGOT) 18 U/L (15-37) Alanine Aminotransferase (ALT/SGPT) 22 U/L (12-78) Alkaline Phosphatase 77 U/L (46-116) Pro-B-Type Natriuretic Peptide 498 pg/mL (0-125) H Total Protein 6.5 G/DL (6.4-8.2) Albumin 1.6 G/DL (3.4-5.0) L Globulin 4.9 g/dL Albumin/Globulin Ratio 0.3 (1.0-2.7) L Height (Feet): 5 Height (Inches): 8.00 Weight (Pounds): 160 General Appearance: WD/WN, no apparent distress, alert Cardiovascular: normal rate Respiratory/Chest: normal breath sounds, no respiratory distress Abdominal Exam: normal bowel sounds, non tender, soft Extremities: normal range of motion, non-tender Objective Rupinder Moseley NP Aug 16, 2017 15:16
[2017-08-16 16:00] VITALS: BP 145/73
[2017-08-16 20:00] VITALS: BP 119/71
[2017-08-16] MEDS: Miralax 17gm pkt ORAL SCH (21:18)
--- NOTE | 2017-08-16 21:32 | General Progress Note ---
Assessment/Plan Problem List: (1) HIV (human immunodeficiency virus infection) ICD Codes: B20 - Human immunodeficiency virus [HIV] disease SNOMED: 86027279 (2) Abdominal pain ICD Codes: R10.9 - Unspecified abdominal pain SNOMED: 17998334 Qualifiers: Qualified Codes: R10.32 - Left lower quadrant pain (3) Constipated ICD Codes: K59.00 - Constipation, unspecified SNOMED: 82775936 (4) Hepatitis C ICD Codes: B19.20 - Unspecified viral hepatitis C without hepatic coma SNOMED: 74731349 (5) Hypoalbuminemia ICD Codes: E88.09 - Other disorders of plasma-protein metabolism, not elsewhere classified SNOMED: 972667828 (6) Bacteremia ICD Codes: R78.81 - Bacteremia SNOMED: 3167876 Status: progressing Assessment/Plan afebrile hiv sepsis abx per id no acute events obs reviewed chart and labs Subjective ROS Limited/Unobtainable: Yes Allergies: Coded Allergies: No Known Allergies (Unverified , 08/06/17) Objective Last 24 Hour Vital Signs Date Time Temp Pulse Resp B/P (MAP) Pulse Ox O2 Delivery O2 Flow Rate FiO2 08/16/17 21:01 75 20 Room Air 21 08/16/17 20:00 99.0 75 20 119/71 95 Nasal Cannula 2.0 99.0 08/16/17 18:31 98.3 08/16/17 17:59 98.3 08/16/17 16:00 80 08/16/17 16:00 98.3 86 22 145/73 93 Nasal Cannula 2.0 98.3 08/16/17 12:00 98.3 81 28 125/66 97 Nasal Cannula 2.0 98.3 08/16/17 12:00 94 08/16/17 11:01 98.1 08/16/17 08:30 96 Room Air 21 08/16/17 08:30 Room Air 21 08/16/17 08:30 77 18 Room Air 21 08/16/17 08:00 89 08/16/17 08:00 98.1 94 18 113/58 95 Nasal Cannula 2.0 98.1 08/16/17 04:00 83 08/16/17 04:00 98.3 83 24 128/58 94 Nasal Cannula 3.0 98.3 7/5/18 03:15 97.9 08/16/17 02:14 97.8 08/16/17 00:00 97.9 80 24 114/57 95 Nasal Cannula 3.0 97.9 08/16/17 00:00 86 Intake and Output 08/15/17 08/16/17 19:00 07:00 Intake Total 1350 ml 570 ml Output Total 580 ml 240 ml Balance 770 ml 330 ml Intake Oral 1350 ml 240 ml IV Total 330 ml Output Urine Total 300 ml 240 ml Other 280 ml # Bowel Movements 1 Laboratory Tests 08/16/17 05:27: White Blood Count 11.0H, Red Blood Count 3.55L, Hemoglobin 10.3L, Hematocrit 31.3L, Mean Corpuscular Volume 88, Mean Corpuscular Hemoglobin 29.0, Mean Corpuscular Hemoglobin Concent 32.9, Red Cell Distribution Width 11.7, Platelet Count 373, Mean Platelet Volume 5.7L, Neutrophils (%) (Auto) 79.8H, Lymphocytes (%) (Auto) 15.3L, Monocytes (%) (Auto) 3.9, Eosinophils (%) (Auto) 0.5, Basophils (%) (Auto) 0.4, Sodium Level 135L, Potassium Level 4.2, Chloride Level 103, Carbon Dioxide Level 27, Anion Gap 5, Blood Urea Nitrogen 9, Creatinine 0.7, Estimat Glomerular Filtration Rate > 60, Glucose Level 102, Calcium Level 7.8L, Total Bilirubin 0.2, Aspartate Amino Transf (AST/SGOT) 18, Alanine Aminotransferase (ALT/SGPT) 22, Alkaline Phosphatase 77, Pro-B-Type Natriuretic Peptide 498H, Total Protein 6.5, Albumin 1.6L, Globulin 4.9, Albumin /Globulin Ratio 0.3L Height (Feet): 5 Height (Inches): 8.00 Weight (Pounds): 160 Neck: supple Cardiovascular: normal rate Respiratory/Chest: lungs clear Abdomen: soft Violette Rogers MD Aug 16, 2017 21:32
[2017-08-16] MEDS ORDERED: Albuterol/Ipratropium 3ml neb HHN PRN (22:00)
[2017-08-16] MEDS ORDERED: Nitroglycerin Subl 0.4mg tab SL PRN (22:00)
[2017-08-16] MEDS ORDERED: Metoclopramide 10mg/2ml Inj IVP PRN (22:00)
[2017-08-16] MEDS ORDERED: HYDROcodone/Acetamin 7.5/325 tab ORAL PRN (22:00)
[2017-08-17] VITALS: BP 134/69
[2017-08-17] MEDS: Guaifenesin/DM 10ml syrup ORAL PRN ×2 (00:19→05:36)
[2017-08-17] MEDS: Oxacillin 2 GM in NS 110 ML IVPB SCH ×6 (01:42→21:24)
[2017-08-17] MEDS: Ketorolac 30mg Inj IV PRN ×5 (03:14→20:06)
[2017-08-17 04:00] VITALS: BP 131/62
[2017-08-17 07:23] LABS: BASOPHILS % (AUTO) 0.5 % (0.0-2.0); EOSINOPHILS % (AUTO) 0.7 % (0.0-3.0); HEMOGLOBIN 10.5 G/DL (14.2-18.0); LYMPHOCYTES % (AUTO) 16.2 % (20.0-45.0); MEAN CORPUSCULAR VOLUME 89 FL (80-99); MONOCYTES % (AUTO) 3.5 % (1.0-10.0); NEUTROPHILS % (AUTO) 79.1 % (45.0-75.0); PLATELET COUNT 365 K/UL (150-450); RED BLOOD COUNT 3.49 M/UL (4.70-6.10); RED CELL DISTRIBUTION WIDTH 11.7 % (11.6-14.8); WHITE BLOOD COUNT 9.1 K/UL (4.8-10.8)
[2017-08-17 07:41] LABS: ALANINE AMINOTRANSFERASE 37 U/L (12-78); ALBUMIN 1.7 G/DL (3.4-5.0); ALBUMIN/GLOBULIN RATIO 0.3 (1.0-2.7); ALKALINE PHOSPHATASE 79 U/L (46-116); ANION GAP 11 mmol/L (5-15); ASPARTATE AMINO TRANSFERASE 38 U/L (15-37); BILIRUBIN,TOTAL 0.3 MG/DL (0.2-1.0); BLOOD UREA NITROGEN 5 mg/dL (7-18); CALCIUM 7.9 MG/DL (8.5-10.1); CARBON DIOXIDE 23 MMOL/L (21-32); CHLORIDE 104 MMOL/L (98-107); CREATININE 0.8 MG/DL (0.55-1.30); POTASSIUM 3.8 MMOL/L (3.5-5.1); SODIUM 138 MMOL/L (136-145)
[2017-08-17 08:00] VITALS: BP 137/87
[2017-08-17] MEDS: Docusate 100mg cap ORAL SCH ×2 (08:06→17:05)
[2017-08-17] MEDS: Heparin 5000 units/ml inj SUBQ SCH ×2 (08:08→20:12)
[2017-08-17] MEDS ORDERED: NS 275ml ONE (10:08)
--- NOTE | 2017-08-17 11:28 | Diagnostic Imaging Report ---
Indication: Dyspnea Comparison: 08/16/2017 A single view chest radiograph was obtained. Findings: Left chest tube again noted unchanged. There is a pleural thickening and mild platelike atelectasis or scarring in the left midlung. A small left pleural effusion suspected. Subcutaneous air again demonstrated in the left chest wall. No pneumothorax is identified. Heart size remains stable. IMPRESSION: No radiographic change compared to one day earlier
[2017-08-17 12:00] VITALS: BP 138/86
--- NOTE | 2017-08-17 13:10 | Nephrology Progress Note ---
Assessment/Plan Problem List: (1) Hyponatremia (2) HIV (human immunodeficiency virus infection) (3) COPD (chronic obstructive pulmonary disease) (4) Hepatitis C (5) Drug abuse and dependence (6) Hypoalbuminemia Assessment Post VATs Sever HypoNatremia- na up to 138 HypoAlbuminemia HIV + Chronic Pain MultiDrug abuse: coccaine MJ Amphetamines Anemia COPD Hep C Plan VATS 7/ po fluid restriction Trial of 3% saline and PRN Lasix as needed monitor lytes K Mag Phos as needed per pulmonary Subjective ROS Limited/Unobtainable: No Constitutional: Reports: malaise Objective Objective Last 24 Hour Vital Signs Date Time Temp Pulse Resp B/P (MAP) Pulse Ox O2 Delivery O2 Flow Rate FiO2 08/17/17 12:05 98.4 08/17/17 11:35 98.4 08/17/17 08:00 98.4 86 20 137/87 (104) 97 98.4 08/17/17 04:00 96.2 77 18 131/62 94 Room Air 96.2 08/17/17 00:00 97.6 81 20 134/69 97 Nasal Cannula 2.0 97.6 08/16/17 21:01 75 20 Room Air 21 08/16/17 20:00 99.0 75 20 119/71 95 Nasal Cannula 2.0 99.0 08/16/17 19:13 81 08/16/17 18:31 98.3 08/16/17 17:59 98.3 08/16/17 16:00 80 08/16/17 16:00 98.3 86 22 145/73 93 Nasal Cannula 2.0 98.3 Intake and Output 08/16/17 08/17/17 19:00 07:00 Intake Total 780 ml 330 ml Output Total 1880 ml 1180 ml Balance -1100 ml -850 ml Intake Oral 450 ml IV Total 330 ml 330 ml Output Urine Total 1880 ml 1180 ml # Voids 5 Laboratory Tests 08/17/17 06:20: White Blood Count 9.1, Red Blood Count 3.49L, Hemoglobin 10.5L, Hematocrit 31.0L , Mean Corpuscular Volume 89, Mean Corpuscular Hemoglobin 30.0, Mean Corpuscular Hemoglobin Concent 33.8, Red Cell Distribution Width 11.7, Platelet Count 365, Mean Platelet Volume 5.7L, Neutrophils (%) (Auto) 79.1H, Lymphocytes (%) (Auto) 16.2L, Monocytes (%) (Auto) 3.5, Eosinophils (%) (Auto) 0.7, Basophils (%) (Auto) 0.5, Sodium Level 138, Potassium Level 3.8, Chloride Level 104, Carbon Dioxide Level 23, Anion Gap 11, Blood Urea Nitrogen 5L, Creatinine 0.8, Estimat Glomerular Filtration Rate > 60, Glucose Level 152H, Calcium Level 7.9L, Total Bilirubin 0.3, Aspartate Amino Transf (AST/SGOT) 38H, Alanine Aminotransferase (ALT/SGPT) 37, Alkaline Phosphatase 79, Pro-B-Type Natriuretic Peptide 513H, Total Protein 6.8, Albumin 1.7L, Globulin 5.1, Albumin/Globulin Ratio 0.3L Height (Feet): 5 Height (Inches): 8.00 Weight (Pounds): 160 General Appearance: no apparent distress Respiratory/Chest: decreased breath sounds, other - chest tube + Abdomen: soft Objective no change JAMI KRISHNAMURTHY Aug 17, 2017 13:10
--- NOTE | 2017-08-17 13:31 | General Progress Note ---
Assessment/Plan Problem List: (1) HIV (human immunodeficiency virus infection) ICD Codes: B20 - Human immunodeficiency virus [HIV] disease SNOMED: 84519822 (2) Abdominal pain ICD Codes: R10.9 - Unspecified abdominal pain SNOMED: 33809441 Qualifiers: Qualified Codes: R10.32 - Left lower quadrant pain (3) Constipated ICD Codes: K59.00 - Constipation, unspecified SNOMED: 28804054 (4) Hepatitis C ICD Codes: B19.20 - Unspecified viral hepatitis C without hepatic coma SNOMED: 25361420 (5) Hypoalbuminemia ICD Codes: E88.09 - Other disorders of plasma-protein metabolism, not elsewhere classified SNOMED: 717620232 (6) Bacteremia ICD Codes: R78.81 - Bacteremia SNOMED: 8686958 Status: progressing Assessment/Plan has chest tube pain at chest tube site hiv sepsis afebrile not stable for dc reviewed chart and labs Subjective HEENT: Reports: no symptoms Allergies: Coded Allergies: No Known Allergies (Unverified , 08/06/17) Subjective pain and chest tube site Objective Last 24 Hour Vital Signs Date Time Temp Pulse Resp B/P (MAP) Pulse Ox O2 Delivery O2 Flow Rate FiO2 08/17/17 12:05 98.4 08/17/17 11:35 98.4 08/17/17 08:00 98.4 86 20 137/87 (104) 97 98.4 08/17/17 04:00 96.2 77 18 131/62 94 Room Air 96.2 08/17/17 00:00 97.6 81 20 134/69 97 Nasal Cannula 2.0 97.6 08/16/17 21:01 75 20 Room Air 21 08/16/17 20:00 99.0 75 20 119/71 95 Nasal Cannula 2.0 99.0 08/16/17 19:13 81 08/16/17 18:31 98.3 08/16/17 17:59 98.3 08/16/17 16:00 80 08/16/17 16:00 98.3 86 22 145/73 93 Nasal Cannula 2.0 98.3 Intake and Output 08/16/17 08/17/17 19:00 07:00 Intake Total 780 ml 330 ml Output Total 1880 ml 1180 ml Balance -1100 ml -850 ml Intake Oral 450 ml IV Total 330 ml 330 ml Output Urine Total 1880 ml 1180 ml # Voids 5 Laboratory Tests 08/17/17 06:20: White Blood Count 9.1, Red Blood Count 3.49L, Hemoglobin 10.5L, Hematocrit 31.0L , Mean Corpuscular Volume 89, Mean Corpuscular Hemoglobin 30.0, Mean Corpuscular Hemoglobin Concent 33.8, Red Cell Distribution Width 11.7, Platelet Count 365, Mean Platelet Volume 5.7L, Neutrophils (%) (Auto) 79.1H, Lymphocytes (%) (Auto) 16.2L, Monocytes (%) (Auto) 3.5, Eosinophils (%) (Auto) 0.7, Basophils (%) (Auto) 0.5, Sodium Level 138, Potassium Level 3.8, Chloride Level 104, Carbon Dioxide Level 23, Anion Gap 11, Blood Urea Nitrogen 5L, Creatinine 0.8, Estimat Glomerular Filtration Rate > 60, Glucose Level 152H, Calcium Level 7.9L, Total Bilirubin 0.3, Aspartate Amino Transf (AST/SGOT) 38H, Alanine Aminotransferase (ALT/SGPT) 37, Alkaline Phosphatase 79, Pro-B-Type Natriuretic Peptide 513H, Total Protein 6.8, Albumin 1.7L, Globulin 5.1, Albumin/Globulin Ratio 0.3L Height (Feet): 5 Height (Inches): 8.00 Weight (Pounds): 160 Neck: supple Cardiovascular: normal rate Respiratory/Chest: normal breath sounds Violette Rogers MD Aug 17, 2017 13:31
--- NOTE | 2017-08-17 14:26 | Cardiology Report ---
APPROVED REPORT EKG Measurement Heart [id number] Normal sinus rhythm Normal ECG
--- NOTE | 2017-08-17 15:58 | Pulmonology Progress Note ---
Assessment/Plan Problems: (1) Pleural effusion (2) Abdominal pain (3) Constipation (4) Hyponatremia (5) COPD (chronic obstructive pulmonary disease) (6) Hepatitis C (7) HIV (human immunodeficiency virus infection) Assessment/Plan chest tube still in cxr in am, off suction BC positive for GPC , stap aureaus, last cultures are negative laxative, GI evaluation appreciated CXR in am respiratory treatment Hyponatremia w/u HIV studies, Hep C positive titrate fio2 to sat of 92% Subjective ROS Limited/Unobtainable: No Constitutional: Reports: no symptoms Respiratory: Reports: no symptoms Allergies: Coded Allergies: No Known Allergies (Unverified , 08/06/17) Objective Last 24 Hour Vital Signs Date Time Temp Pulse Resp B/P (MAP) Pulse Ox O2 Delivery O2 Flow Rate FiO2 08/17/17 15:51 98.4 08/17/17 12:05 98.4 08/17/17 12:00 97.9 79 20 138/86 (103) 96 97.9 08/17/17 11:35 98.4 08/17/17 09:00 Nasal Cannula 2.0 08/17/17 08:00 98.4 86 20 137/87 (104) 97 98.4 08/17/17 04:00 96.2 77 18 131/62 94 Room Air 96.2 08/17/17 00:00 97.6 81 20 134/69 97 Nasal Cannula 2.0 97.6 08/16/17 21:01 75 20 Room Air 21 08/16/17 20:00 99.0 75 20 119/71 95 Nasal Cannula 2.0 99.0 08/16/17 19:13 81 08/16/17 18:31 98.3 08/16/17 17:59 98.3 08/16/17 16:00 80 08/16/17 16:00 98.3 86 22 145/73 93 Nasal Cannula 2.0 98.3 Intake and Output 08/16/17 08/17/17 19:00 07:00 Intake Total 780 ml 330 ml Output Total 1880 ml 1180 ml Balance -1100 ml -850 ml Intake Oral 450 ml IV Total 330 ml 330 ml Output Urine Total 1880 ml 1180 ml # Voids 5 General Appearance: WD/WN HEENT: normocephalic, atraumatic Respiratory/Chest: chest wall non-tender, lungs clear Cardiovascular: normal peripheral pulses, normal rate Abdomen: normal bowel sounds, soft, non tender Genitourinary: normal external genitalia Extremities: no cyanosis Neurologic/Psychiatric: emt i/99 II-XII grossly normal Microbiology Date/Time Source Procedure Growth Status 08/14/17 20:00 Nasal Nares MRSA Culture - Final NO METHICILLIN RESISTANT STAPH AUREUS... Complete 08/14/17 20:00 Rectum VRE Culture - Final Enterococcus Faecium - Vre Complete Laboratory Tests 08/17/17 06:20: White Blood Count 9.1, Red Blood Count 3.49L, Hemoglobin 10.5L, Hematocrit 31.0L , Mean Corpuscular Volume 89, Mean Corpuscular Hemoglobin 30.0, Mean Corpuscular Hemoglobin Concent 33.8, Red Cell Distribution Width 11.7, Platelet Count 365, Mean Platelet Volume 5.7L, Neutrophils (%) (Auto) 79.1H, Lymphocytes (%) (Auto) 16.2L, Monocytes (%) (Auto) 3.5, Eosinophils (%) (Auto) 0.7, Basophils (%) (Auto) 0.5, Sodium Level 138, Potassium Level 3.8, Chloride Level 104, Carbon Dioxide Level 23, Anion Gap 11, Blood Urea Nitrogen 5L, Creatinine 0.8, Estimat Glomerular Filtration Rate > 60, Glucose Level 152H, Calcium Level 7.9L, Total Bilirubin 0.3, Aspartate Amino Transf (AST/SGOT) 38H, Alanine Aminotransferase (ALT/SGPT) 37, Alkaline Phosphatase 79, Pro-B-Type Natriuretic Peptide 513H, Total Protein 6.8, Albumin 1.7L, Globulin 5.1, Albumin/Globulin Ratio 0.3L Current Medications Medications (Trade) Dose Ordered Sig/Veronica Route PRN Reason Start Time Stop Time Status Last Admin Dose Admin Acetaminophen (Tylenol) 650 mg Q4H PRN ORAL fever (temp>100.5F) 08/16/17 22:00 09/05/17 21:59 Acetaminophen/ Hydrocodone Bitart ([place] 7.5/325) 1 tab Q4H PRN ORAL Moderate Pain (Pain Scale 4-6) 08/16/17 22:00 08/21/17 21:59 Albuterol/ Ipratropium (Albuterol/ Ipratropium) 3 ml Q6H PRN HHN Shortness of breath 08/16/17 22:00 08/21/17 21:59 Docusate Sodium (Colace) 100 mg TWICE A DAY ORAL 08/17/17 09:00 09/15/17 08:59 08/17/17 08:06 Guaifenesin/ Dextromethorphan (Robitussin DM Syrup) 10 ml Q4H PRN ORAL For Cough 08/16/17 22:00 09/15/17 21:59 08/17/17 05:36 Heparin Sodium (Porcine) (Heparin 5000 units/ml) 5,000 units EVERY 12 HOURS SUBQ 08/17/17 09:00 09/05/17 20:59 08/17/17 08:08 Ketorolac Tromethamine (Toradol 30mg) 30 mg Q4H PRN IV Severe Pain (Pain Scale 7-10) 08/16/17 22:00 08/19/17 21:59 08/17/17 15:51 Lansoprazole (Prevacid) 30 mg DAILY ORAL 08/17/17 09:00 09/09/17 08:59 08/17/17 08:07 Metoclopramide HCl (Reglan) 10 mg Q6H PRN IVP Refractory N/V 08/16/17 22:00 09/15/17 21:59 Nitroglycerin (Ntg) 0.4 mg Q5M X 3 DOSES PRN SL Prn Chest Pain 08/16/17 22:00 09/05/17 21:59 Ondansetron HCl (Zofran) 4 mg Q6H PRN IVP Nausea & Vomiting 08/16/17 22:00 09/15/17 21:59 Oxacillin Sodium 2 gm/Sodium Chloride 110 ml @ 220 mls/hr Q4H IVPB 08/16/17 22:00 09/11/17 21:59 08/17/17 14:16 Polyethylene Glycol (Miralax) 17 gm BEDTIME ORAL 08/17/17 21:00 09/05/17 20:59 Potassium Chloride (K-Dur) 20 meq DAILY ORAL 08/17/17 09:00 09/09/17 08:59 08/17/17 08:07 Temazepam (Restoril) 15 mg HSPRN PRN ORAL Insomnia 08/17/17 00:00 08/22/17 20:59 08/17/17 00:13 Sally Cox MD Aug 17, 2017 15:58
[2017-08-17 16:00] VITALS: BP_SYST 111; BP_SYST 125; BP_DIAS 64; BP_DIAS 71
--- NOTE | 2017-08-17 17:20 | GI Progress Note ---
Assessment/Plan Problems: (1) Polysubstance (excluding opioids) dependence ICD Codes: F19.20 - Other psychoactive substance dependence, uncomplicated SNOMED: 14723193 (2) Hepatitis C ICD Codes: B19.20 - Unspecified viral hepatitis C without hepatic coma SNOMED: 01029853 (3) Constipated ICD Codes: K59.00 - Constipation, unspecified SNOMED: 17965585 (4) Hyponatremia ICD Codes: E87.1 - Hypo-osmolality and hyponatremia SNOMED: 69523661 (5) HIV (human immunodeficiency virus infection) ICD Codes: B20 - Human immunodeficiency virus [HIV] disease SNOMED: 93585563 (6) Abdominal pain ICD Codes: R10.9 - Unspecified abdominal pain SNOMED: 76956197 Qualifiers: Qualified Codes: R10.32 - Left lower quadrant pain Status: stable Status Narrative Discussed with Dr. Lee. Assessment/Plan CT reviewed >> - Small left pleural effusion and left basilar atelectasis and possibly some consolidation - No definite acute abdominal or pelvic process - No CT evidence of significant constipation - Colonic diverticulosis. No evidence of diverticulitis - Mildly hypoattenuating liver, consistent with fatty change - prominent prostate, with nonspecific hypoattenuation HIV positive hep C antibody positive Utox positive for cocaine, MJ, amphetamines OB negative s/p Bronchoscopy, left video-assisted thoracoscopic surgery, exploratory symptomatic treatment monitor H&H, prn transfusions bowel regime ppi fu labs outpatient GI procedures dc planning The patient was seen and examined at bedside and all new and available data was reviewed in the patients chart. I agree with the above findings, impression and plan. (Patient seen earlier today. Signature stamp does not reflect patient encounter time.). - Matthew Lee MD Subjective Gastrointestinal/Abdominal: Reports: no symptoms Objective Last 24 Hour Vital Signs Date Time Temp Pulse Resp B/P (MAP) Pulse Ox O2 Delivery O2 Flow Rate FiO2 08/17/17 16:21 97.4 08/17/17 16:00 97.4 92 20 111/64 (80) 95 97.4 08/17/17 15:51 98.4 08/17/17 12:00 97.9 79 20 138/86 (103) 96 97.9 08/17/17 11:35 98.4 08/17/17 09:00 Nasal Cannula 2.0 7/6/18 08:00 98.4 86 20 137/87 (104) 97 98.4 08/17/17 04:00 96.2 77 18 131/62 94 Room Air 96.2 08/17/17 00:00 97.6 81 20 134/69 97 Nasal Cannula 2.0 97.6 08/16/17 21:01 75 20 Room Air 21 08/16/17 20:00 99.0 75 20 119/71 95 Nasal Cannula 2.0 99.0 08/16/17 19:13 81 08/16/17 18:31 98.3 08/16/17 17:59 98.3 Intake and Output 08/16/17 08/17/17 19:00 07:00 Intake Total 780 ml 330 ml Output Total 1880 ml 1180 ml Balance -1100 ml -850 ml Intake Oral 450 ml IV Total 330 ml 330 ml Output Urine Total 1880 ml 1180 ml # Voids 5 Laboratory Tests Test 08/17/17 06:20 White Blood Count 9.1 K/UL (4.8-10.8) Red Blood Count 3.49 M/UL (4.70-6.10) L Hemoglobin 10.5 G/DL (14.2-18.0) L Hematocrit 31.0 % (42.0-52.0) L Mean Corpuscular Volume 89 FL (80-99) Mean Corpuscular Hemoglobin 30.0 PG (27.0-31.0) Mean Corpuscular Hemoglobin Concent 33.8 G/DL (32.0-36.0) Red Cell Distribution Width 11.7 % (11.6-14.8) Platelet Count 365 K/UL (150-450) Mean Platelet Volume 5.7 FL (6.5-10.1) L Neutrophils (%) (Auto) 79.1 % (45.0-75.0) H Lymphocytes (%) (Auto) 16.2 % (20.0-45.0) L Monocytes (%) (Auto) 3.5 % (1.0-10.0) Eosinophils (%) (Auto) 0.7 % (0.0-3.0) Basophils (%) (Auto) 0.5 % (0.0-2.0) Sodium Level 138 MMOL/L (136-145) Potassium Level 3.8 MMOL/L (3.5-5.1) Chloride Level 104 MMOL/L (98-107) Carbon Dioxide Level 23 MMOL/L (21-32) Anion Gap 11 mmol/L (5-15) Blood Urea Nitrogen 5 mg/dL (7-18) L Creatinine 0.8 MG/DL (0.55-1.30) Estimat Glomerular Filtration Rate > 60 mL/min (>60) Glucose Level 152 MG/DL (74-106) H Calcium Level 7.9 MG/DL (8.5-10.1) L Total Bilirubin 0.3 MG/DL (0.2-1.0) Aspartate Amino Transf (AST/SGOT) 38 U/L (15-37) H Alanine Aminotransferase (ALT/SGPT) 37 U/L (12-78) Alkaline Phosphatase 79 U/L (46-116) Pro-B-Type Natriuretic Peptide 513 pg/mL (0-125) H Total Protein 6.8 G/DL (6.4-8.2) Albumin 1.7 G/DL (3.4-5.0) L Globulin 5.1 g/dL Albumin/Globulin Ratio 0.3 (1.0-2.7) L Height (Feet): 5 Height (Inches): 8.00 Weight (Pounds): 160 General Appearance: WD/WN, no apparent distress, alert Cardiovascular: normal rate Respiratory/Chest: normal breath sounds, no respiratory distress Abdominal Exam: normal bowel sounds, non tender, soft Extremities: normal range of motion, non-tender Objective Rupinder Moseley NP Aug 17, 2017 17:20
--- NOTE | 2017-08-17 18:26 | Cardiology Progress Note ---
Assessment/Plan Status: stable Assessment/Plan Assessment HIV HEP C HTN Assessment COPD Asthma Constipation Hyponatemia Sepsis Pneumonia Plan Reviewed TTE - no evidence of endocarditis, valvular destruction/regurgitation, no evidence of septic emboli, He does not have osler node, septic pulmonary infarcts, ICH, conjunctival hemorrhages, janeway lesions He does have a hx of drug use, positive blood cultures, and fevers (albeit broke with antibiotics) , and hx of IV drug use. He has a moderate pre test probability of IE ( 1 major, 2 minor) My recommendations are if he has persistent fevers/blood cultures on antibiotics we should proceed with NURA to determine course of therapy, until NURA is done treat as if he has endocarditis since he has persistent positive cultures. If his cultures do not clear he may need surgery, nothing seen on TTE , may opt to re check until NURA is done -> PLACED ORDER TO RE CHECK TTE TO EVALUATE FOR ABSCESS AND VALVULAR DISFUNCTION Since cultures are negative, WBC coming down, and fevers resolved - likely likely to have endocarditis at this juncture, will continue to monitor on antibiotics Follow up pleural cultures Continue Abx six weeks Pain control D/c chest tube when output decrease PT/OT DVT GI prophylaxis Subjective Cardiovascular: Reports: no symptoms Respiratory: Reports: no symptoms Gastrointestinal/Abdominal: Reports: no symptoms Genitourinary: Reports: no symptoms Subjective Complain of pain and wants more pain medicine Transferred to floor, no distress, chest tube to suction Blood culture from 08/13 negative, WBC coming down now normal Continues to be on Abx NO acute events Objective Last 24 Hour Vital Signs Date Time Temp Pulse Resp B/P (MAP) Pulse Ox O2 Delivery O2 Flow Rate FiO2 08/17/17 16:21 97.4 08/17/17 16:00 97.4 92 20 111/64 (80) 95 97.4 08/17/17 15:51 98.4 08/17/17 12:00 97.9 79 20 138/86 (103) 96 97.9 08/17/17 11:35 98.4 08/17/17 09:00 Nasal Cannula 2.0 08/17/17 08:00 98.4 86 20 137/87 (104) 97 98.4 08/17/17 04:00 96.2 77 18 131/62 94 Room Air 96.2 08/17/17 00:00 97.6 81 20 134/69 97 Nasal Cannula 2.0 97.6 08/16/17 21:01 75 20 Room Air 21 08/16/17 20:00 99.0 75 20 119/71 95 Nasal Cannula 2.0 99.0 08/16/17 19:13 81 08/16/17 18:31 98.3 General Appearance: no apparent distress EENT: PERRL/EOMI Neck: non-tender Rhythm: NSR Cardiovascular: normal peripheral pulses Respiratory/Chest: chest wall non-tender Abdomen: normal bowel sounds Extremities: normal range of motion Neurologic: informatics scientist II-XII grossly normal Intake and Output 08/16/17 08/17/17 19:00 07:00 Intake Total 780 ml 330 ml Output Total 1880 ml 1180 ml Balance -1100 ml -850 ml Intake Oral 450 ml IV Total 330 ml 330 ml Output Urine Total 1880 ml 1180 ml # Voids 5 Laboratory Tests Test 08/17/17 06:20 White Blood Count 9.1 K/UL (4.8-10.8) Red Blood Count 3.49 M/UL (4.70-6.10) L Hemoglobin 10.5 G/DL (14.2-18.0) L Hematocrit 31.0 % (42.0-52.0) L Mean Corpuscular Volume 89 FL (80-99) Mean Corpuscular Hemoglobin 30.0 PG (27.0-31.0) Mean Corpuscular Hemoglobin Concent 33.8 G/DL (32.0-36.0) Red Cell Distribution Width 11.7 % (11.6-14.8) Platelet Count 365 K/UL (150-450) Mean Platelet Volume 5.7 FL (6.5-10.1) L Neutrophils (%) (Auto) 79.1 % (45.0-75.0) H Lymphocytes (%) (Auto) 16.2 % (20.0-45.0) L Monocytes (%) (Auto) 3.5 % (1.0-10.0) Eosinophils (%) (Auto) 0.7 % (0.0-3.0) Basophils (%) (Auto) 0.5 % (0.0-2.0) Sodium Level 138 MMOL/L (136-145) Potassium Level 3.8 MMOL/L (3.5-5.1) Chloride Level 104 MMOL/L (98-107) Carbon Dioxide Level 23 MMOL/L (21-32) Anion Gap 11 mmol/L (5-15) Blood Urea Nitrogen 5 mg/dL (7-18) L Creatinine 0.8 MG/DL (0.55-1.30) Estimat Glomerular Filtration Rate > 60 mL/min (>60) Glucose Level 152 MG/DL (74-106) H Calcium Level 7.9 MG/DL (8.5-10.1) L Total Bilirubin 0.3 MG/DL (0.2-1.0) Aspartate Amino Transf (AST/SGOT) 38 U/L (15-37) H Alanine Aminotransferase (ALT/SGPT) 37 U/L (12-78) Alkaline Phosphatase 79 U/L (46-116) Pro-B-Type Natriuretic Peptide 513 pg/mL (0-125) H Total Protein 6.8 G/DL (6.4-8.2) Albumin 1.7 G/DL (3.4-5.0) L Globulin 5.1 g/dL Albumin/Globulin Ratio 0.3 (1.0-2.7) L Microbiology Date/Time Source Procedure Growth Status 08/14/17 20:00 Nasal Nares MRSA Culture - Final NO METHICILLIN RESISTANT STAPH AUREUS... Complete 08/14/17 20:00 Rectum VRE Culture - Final Enterococcus Faecium - Vre Complete Murali Victoria M.D. Aug 17, 2017 18:26
[2017-08-17 20:00] VITALS: BP 145/67
--- NOTE | 2017-08-17 20:58 | Infectious Diseases Prog Note ---
Assessment/Plan Assessment/Plan Assessment: Persistent MSSA Bacteremia- likely 2ry to empyema. Ro endocarditis (high risk) -s/p VATS, partial pleurectomy, decortication 08/14 -OR findings : Bronchoscopy: A minimal amount of mucopurulent secretion was lavaged and suctioned clear. No endobronchial lesions. -VATS: There were noted to be numerous adhesions tethering along to the surrounding chest wall. The disease appears to be localized in the left lower lobe as the left upper lobe was virtually spared. - OR cx MSSA AFB smear neg; c xp Empyema -08/16 CXR: Subcutaneous emphysema along the left chest unchanged. No appreciable pneumothorax. Interval decrease in linear opacities in the right mid and lower lung likely related to decreased atelectasis. Persistent streaky opacities in the left midlung. No acute osseous abnormality. 08/10-CT chest Left pleural effusion. Scalloped appearance suggests loculation. Presence of gas bubbles suggest infection by gas-forming organism. Gas bubbles appear trapped within the fluid rather than floating nondependently , indicating the fluid may be highly viscous. Sepsis -08/07 Bcx 4/4 MSSA; 08/08 4/4+; 08/10 2/4 +; 08/11 2/4+; 08/13 NTD x4 -CXR no acute disease -sp cx Normal respiratory mati Fever, SP Leukocytosis, worsened post-op, now improving Polysubstance abuse- refers last IVDA was ~7 yrs ago -UDS +THC, cocaine and amphetamines HIV - non progressor- per patient, never on Tx and CD4 >500 and UD VL -CD4 510 (39.2%), VL ND Hep C s/p tx (20 years ago) with sustained virologic response COPD/asthma tobacco abuse (stopped smoking 3d [employer]) Constipation -CT abd/p w/: Small left pleural effusion and left basilar atelectasis and possibly some consolidation. No definite acute abdominal or pelvic process. No CT evidence of significant constipation. Colonic diverticulosis. No evidence of diverticulitis. Mildly hypoattenuating liver, consistent with fatty change. 5 mm fat attenuation nodule is seen within the left adrenal. Prominent prostate, with nonspecific hypoattenuation. Subcentimeter low-attenuation left renal lesion, too small to characterize, most likely benign simple cysts. No further follow-up necessary Plan: - Cont IV Oxacillin ( AB Rx d# ) for MSSA bacteremia -08/10 SP Ceftriaxone d# 5 and IV Vancomycin #3 -08/06 SP Cefepime x1, Levaquin x1 -monitor LFTs -f/u Bcx x2 (last 08/13) -Recommend NURA to eval for endocarditis (high suspicion and to eval for perivalvular abscess) -f/u Lung tissue bacterial, fungal, AFB and pathology -Monitor CBC/BMP, temperatures -aspiration precautions Discussed with RN. Subjective Allergies: Coded Allergies: No Known Allergies (Unverified , 08/06/17) Subjective transferred to [facility] WBC improving afebrile at 2l NC Objective Vital Signs Last 24 Hour Vital Signs Date Time Temp Pulse Resp B/P (MAP) Pulse Ox O2 Delivery O2 Flow Rate FiO2 08/17/17 16:21 97.4 08/17/17 16:00 97.4 92 20 111/64 (80) 95 97.4 08/17/17 15:51 98.4 08/17/17 12:00 97.9 79 20 138/86 (103) 96 97.9 08/17/17 11:35 98.4 08/17/17 09:00 Nasal Cannula 2.0 08/17/17 08:00 98.4 86 20 137/87 (104) 97 98.4 08/17/17 04:00 96.2 77 18 131/62 94 Room Air 96.2 08/17/17 00:00 97.6 81 20 134/69 97 Nasal Cannula 2.0 97.6 08/16/17 21:01 75 20 Room Air 21 Height (Feet): 5 Height (Inches): 8.00 Weight (Pounds): 160 Objective General Appearance: WD/WN HEENT: atraumatic Respiratory/Chest: chest wall non-tender, lungs clear Cardiovascular: normal peripheral pulses, normal rate Abdomen: normal bowel sounds, soft, non tender Skin: no rash Laboratory Tests Test 08/17/17 06:20 White Blood Count 9.1 K/UL (4.8-10.8) Red Blood Count 3.49 M/UL (4.70-6.10) L Hemoglobin 10.5 G/DL (14.2-18.0) L Hematocrit 31.0 % (42.0-52.0) L Mean Corpuscular Volume 89 FL (80-99) Mean Corpuscular Hemoglobin 30.0 PG (27.0-31.0) Mean Corpuscular Hemoglobin Concent 33.8 G/DL (32.0-36.0) Red Cell Distribution Width 11.7 % (11.6-14.8) Platelet Count 365 K/UL (150-450) Mean Platelet Volume 5.7 FL (6.5-10.1) L Neutrophils (%) (Auto) 79.1 % (45.0-75.0) H Lymphocytes (%) (Auto) 16.2 % (20.0-45.0) L Monocytes (%) (Auto) 3.5 % (1.0-10.0) Eosinophils (%) (Auto) 0.7 % (0.0-3.0) Basophils (%) (Auto) 0.5 % (0.0-2.0) Sodium Level 138 MMOL/L (136-145) Potassium Level 3.8 MMOL/L (3.5-5.1) Chloride Level 104 MMOL/L (98-107) Carbon Dioxide Level 23 MMOL/L (21-32) Anion Gap 11 mmol/L (5-15) Blood Urea Nitrogen 5 mg/dL (7-18) L Creatinine 0.8 MG/DL (0.55-1.30) Estimat Glomerular Filtration Rate > 60 mL/min (>60) Glucose Level 152 MG/DL (74-106) H Calcium Level 7.9 MG/DL (8.5-10.1) L Total Bilirubin 0.3 MG/DL (0.2-1.0) Aspartate Amino Transf (AST/SGOT) 38 U/L (15-37) H Alanine Aminotransferase (ALT/SGPT) 37 U/L (12-78) Alkaline Phosphatase 79 U/L (46-116) Pro-B-Type Natriuretic Peptide 513 pg/mL (0-125) H Total Protein 6.8 G/DL (6.4-8.2) Albumin 1.7 G/DL (3.4-5.0) L Globulin 5.1 g/dL Albumin/Globulin Ratio 0.3 (1.0-2.7) L Current Medications Medications (Trade) Dose Ordered Sig/Veronica Route PRN Reason Start Time Stop Time Status Last Admin Dose Admin Acetaminophen (Tylenol) 650 mg Q4H PRN ORAL fever (temp>100.5F) 08/16/17 22:00 09/05/17 21:59 Acetaminophen/ Hydrocodone Bitart ([place] 7.5/325) 1 tab Q4H PRN ORAL Moderate Pain (Pain Scale 4-6) 08/16/17 22:00 08/21/17 21:59 Albuterol/ Ipratropium (Albuterol/ Ipratropium) 3 ml Q6H PRN HHN Shortness of breath 08/16/17 22:00 08/21/17 21:59 Docusate Sodium (Colace) 100 mg TWICE A DAY ORAL 08/17/17 09:00 09/15/17 08:59 08/17/17 17:05 Guaifenesin/ Dextromethorphan (Robitussin DM Syrup) 10 ml Q4H PRN ORAL For Cough 08/16/17 22:00 09/15/17 21:59 08/17/17 05:36 Heparin Sodium (Porcine) (Heparin 5000 units/ml) 5,000 units EVERY 12 HOURS SUBQ 08/17/17 09:00 09/05/17 20:59 08/17/17 20:12 Ketorolac Tromethamine (Toradol 30mg) 30 mg Q4H PRN IV Severe Pain (Pain Scale 7-10) 08/16/17 22:00 08/19/17 21:59 08/17/17 20:06 Lansoprazole (Prevacid) 30 mg DAILY ORAL 08/17/17 09:00 09/09/17 08:59 08/17/17 08:07 Metoclopramide HCl (Reglan) 10 mg Q6H PRN IVP Refractory N/V 08/16/17 22:00 09/15/17 21:59 Nitroglycerin (Ntg) 0.4 mg Q5M X 3 DOSES PRN SL Prn Chest Pain 08/16/17 22:00 09/05/17 21:59 Ondansetron HCl (Zofran) 4 mg Q6H PRN IVP Nausea & Vomiting 08/16/17 22:00 09/15/17 21:59 Oxacillin Sodium 2 gm/Sodium Chloride 110 ml @ 220 mls/hr Q4H IVPB 08/16/17 22:00 09/11/17 21:59 08/17/17 17:06 Polyethylene Glycol (Miralax) 17 gm BEDTIME ORAL 08/17/17 21:00 09/05/17 20:59 Potassium Chloride (K-Dur) 20 meq DAILY ORAL 08/17/17 09:00 09/09/17 08:59 08/17/17 08:07 Temazepam (Restoril) 15 mg HSPRN PRN ORAL Insomnia 08/17/17 00:00 08/22/17 20:59 08/17/17 00:13 Steph Crowder M.D. Aug 17, 2017 20:58
[2017-08-17] MEDS ORDERED: Miralax 17gm pkt ORAL SCH (21:00)
[2017-08-18] VITALS: BP 137/76
[2017-08-18] MEDS: Ketorolac 30mg Inj IV PRN ×4 (00:08→12:13)
[2017-08-18] MEDS: Oxacillin 2 GM in NS 110 ML IVPB SCH ×4 (02:18→14:12)
[2017-08-18 04:00] VITALS: BP 134/76
--- NOTE | 2017-08-18 07:09 | General Progress Note ---
Assessment/Plan Assessment/Plan CT reviewed >> - Small left pleural effusion and left basilar atelectasis and possibly some consolidation - No definite acute abdominal or pelvic process - No CT evidence of significant constipation - Colonic diverticulosis. No evidence of diverticulitis - Mildly hypoattenuating liver, consistent with fatty change - prominent prostate, with nonspecific hypoattenuation HIV positive hep C antibody positive Utox positive for cocaine, MJ, amphetamines OB negative s/p Bronchoscopy, left video-assisted thoracoscopic surgery, exploratory symptomatic treatment monitor H&H, prn transfusions bowel regime ppi fu labs outpatient GI procedures needs out patient fu for hep C treatment dc planning Subjective ROS Limited/Unobtainable: Yes Allergies: Coded Allergies: No Known Allergies (Unverified , 08/06/17) Objective Last 24 Hour Vital Signs Date Time Temp Pulse Resp B/P (MAP) Pulse Ox O2 Delivery O2 Flow Rate FiO2 08/18/17 04:00 97.4 72 19 134/76 (95) 96 97.4 08/18/17 01:40 97.0 08/18/17 00:00 97.0 86 19 137/76 (96) 97 97.0 08/17/17 23:42 76 20 Room Air 21 08/17/17 21:00 Room Air 08/17/17 20:00 98.1 81 18 145/67 (93) 96 98.1 08/17/17 16:00 97.4 92 20 111/64 (80) 95 97.4 08/17/17 15:51 98.4 08/17/17 12:00 97.9 79 20 138/86 (103) 96 97.9 08/17/17 11:35 98.4 08/17/17 09:00 Nasal Cannula 2.0 08/17/17 08:00 98.4 86 20 137/87 (104) 97 98.4 Intake and Output 08/17/17 08/18/17 19:00 07:00 Intake Total 1020 ml 570 ml Output Total 1700 ml Balance 1020 ml -1130 ml Intake Oral 800 ml 350 ml IV Total 220 ml 220 ml Output Urine Total 1700 ml # Voids 4 # Bowel Movements 5 Height (Feet): 5 Height (Inches): 8.00 Weight (Pounds): 160 General Appearance: no apparent distress EENT: normal ENT inspection Neck: supple Cardiovascular: normal rate Respiratory/Chest: decreased breath sounds Abdomen: normal bowel sounds, non tender, soft Extremities: non-tender Matthew Lee MD Aug 18, 2017 07:08
[2017-08-18 08:00] VITALS: BP 127/68
[2017-08-18] MEDS: Docusate 100mg cap ORAL SCH (08:10)
[2017-08-18] MEDS: Heparin 5000 units/ml inj SUBQ SCH (08:11)
[2017-08-18 08:48] LABS: BASOPHILS % (AUTO) 0.4 % (0.0-2.0); HEMOGLOBIN 10.6 G/DL (14.2-18.0); LYMPHOCYTES % (AUTO) 19.5 % (20.0-45.0); MEAN CORPUSCULAR VOLUME 89 FL (80-99); MONOCYTES % (AUTO) 3.6 % (1.0-10.0); NEUTROPHILS % (AUTO) 75.5 % (45.0-75.0); PLATELET COUNT 433 K/UL (150-450); RED BLOOD COUNT 3.61 M/UL (4.70-6.10); RED CELL DISTRIBUTION WIDTH 11.8 % (11.6-14.8); WHITE BLOOD COUNT 8.6 K/UL (4.8-10.8)
--- NOTE | 2017-08-18 09:08 | Diagnostic Imaging Report ---
EXAM: XR Chest, 1 View CLINICAL HISTORY: F/U TECHNIQUE: Frontal view of the chest. COMPARISON: 08/17/17 at 0841. FINDINGS: Redemonstrated left-sided chest tube. No clear residual pneumothorax. Platelike atelectasis again noted to the left midlung with associated elevation of the left hemidiaphragm. Blunting of the right costophrenic sulcus may reflect a small pleural effusion, a similar appearance to prior. Left sided chest wall emphysema from, similar in volume to prior. IMPRESSION: No significant interval change.
[2017-08-18 09:22] LABS: ALANINE AMINOTRANSFERASE 33 U/L (12-78); ALBUMIN 1.9 G/DL (3.4-5.0); ALBUMIN/GLOBULIN RATIO 0.4 (1.0-2.7); ALKALINE PHOSPHATASE 82 U/L (46-116); ANION GAP 8 mmol/L (5-15); ASPARTATE AMINO TRANSFERASE 25 U/L (15-37); BILIRUBIN,TOTAL 0.2 MG/DL (0.2-1.0); BLOOD UREA NITROGEN 6 mg/dL (7-18); CALCIUM 8.5 MG/DL (8.5-10.1); CARBON DIOXIDE 25 MMOL/L (21-32); CHLORIDE 107 MMOL/L (98-107); CREATININE 0.6 MG/DL (0.55-1.30); PHOSPHORUS 4.2 MG/DL (2.5-4.9); POTASSIUM 3.9 MMOL/L (3.5-5.1); SODIUM 140 MMOL/L (136-145)
--- NOTE | 2017-08-18 10:39 | Nephrology Progress Note ---
Assessment/Plan Problem List: (1) Hyponatremia (2) HIV (human immunodeficiency virus infection) (3) COPD (chronic obstructive pulmonary disease) (4) Hepatitis C (5) Drug abuse and dependence (6) Hypoalbuminemia Assessment Post VATs Sever HypoNatremia- na up to 138 HypoAlbuminemia HIV + Chronic Pain MultiDrug abuse: coccaine MJ Amphetamines Anemia COPD Hep C Plan VATS 7/ po fluid restriction Trial of 3% saline and PRN Lasix as needed monitor lytes K Mag Phos as needed per pulmonary Subjective ROS Limited/Unobtainable: No Constitutional: Reports: malaise Objective Objective Last 24 Hour Vital Signs Date Time Temp Pulse Resp B/P (MAP) Pulse Ox O2 Delivery O2 Flow Rate FiO2 08/18/17 09:00 Room Air 08/18/17 08:41 97.4 08/18/17 08:11 97.4 08/18/17 08:00 98.7 90 21 127/68 (87) 96 98.7 08/18/17 04:00 97.4 72 19 134/76 (95) 96 97.4 08/18/17 00:00 97.0 86 19 137/76 (96) 97 97.0 08/17/17 23:42 76 20 Room Air 21 08/17/17 21:00 Room Air 08/17/17 20:00 98.1 81 18 145/67 (93) 96 98.1 08/17/17 16:00 97.4 92 20 111/64 (80) 95 97.4 08/17/17 15:51 98.4 08/17/17 12:00 97.9 79 20 138/86 (103) 96 97.9 08/17/17 11:35 98.4 Intake and Output 08/17/17 08/18/17 19:00 07:00 Intake Total 1020 ml 680 ml Output Total 1700 ml Balance 1020 ml -1020 ml Intake Oral 800 ml 350 ml IV Total 220 ml 330 ml Output Urine Total 1700 ml # Voids 4 # Bowel Movements 5 Laboratory Tests 08/18/17 06:10: White Blood Count 8.6, Red Blood Count 3.61L, Hemoglobin 10.6L, Hematocrit 32.0L , Mean Corpuscular Volume 89, Mean Corpuscular Hemoglobin 29.3, Mean Corpuscular Hemoglobin Concent 33.1, Red Cell Distribution Width 11.8, Platelet Count 433, Mean Platelet Volume 5.6L, Neutrophils (%) (Auto) 75.5H, Lymphocytes (%) (Auto) 19.5L, Monocytes (%) (Auto) 3.6, Eosinophils (%) (Auto) 1.0, Basophils (%) (Auto) 0.4, Sodium Level 140, Potassium Level 3.9, Chloride Level 107, Carbon Dioxide Level 25, Anion Gap 8, Blood Urea Nitrogen 6L, Creatinine 0.6, Estimat Glomerular Filtration Rate > 60, Glucose Level 92, Calcium Level 8.5, Phosphorus Level 4.2, Magnesium Level 2.1, Total Bilirubin 0.2, Aspartate Amino Transf (AST/SGOT) 25, Alanine Aminotransferase (ALT/SGPT) 33, Alkaline Phosphatase 82, Total Protein 7.2, Albumin 1.9L, Globulin 5.3, Albumin/Globulin Ratio 0.4L Height (Feet): 5 Height (Inches): 8.00 Weight (Pounds): 160 Cardiovascular: normal rate, other - slight tachy Respiratory/Chest: decreased breath sounds, other - has CT Objective no change JAMI KRISHNAMURTHY Aug 18, 2017 10:39
[2017-08-18 12:00] VITALS: BP 137/74
--- NOTE | 2017-08-18 13:33 | Diagnostic Imaging Report ---
EXAM: XR Chest, 1 View CLINICAL HISTORY: PNEUMOTX TECHNIQUE: Frontal view of the chest. COMPARISON: 08/28/17 at 0852. FINDINGS: Interval removal of the left-sided chest tube. No pneumothorax. Redemonstrated left mid lung bandlike atelectasis. Stable blunting of the right costophrenic sulcus. Chest wall emphysema again noted. IMPRESSION: Interval removal of the left-sided chest tube. No pneumothorax.
--- NOTE | 2017-08-18 14:18 | Cardiology Progress Note ---
Assessment/Plan Status: stable Assessment/Plan Assessment HIV HEP C HTN Assessment COPD Asthma Constipation Hyponatemia Sepsis Pneumonia Plan Reviewed TTE - no evidence of endocarditis, valvular destruction/regurgitation, no evidence of septic emboli, He does not have osler node, septic pulmonary infarcts, ICH, conjunctival hemorrhages, janeway lesions He does have a hx of drug use, positive blood cultures, and fevers (albeit broke with antibiotics) , and hx of IV drug use. He has a moderate pre test probability of IE ( 1 major, 2 minor) My recommendations are if he has persistent fevers/blood cultures on antibiotics we should proceed with NURA to determine course of therapy, until NURA is done treat as if he has endocarditis since he has persistent positive cultures. If his cultures do not clear he may need surgery, nothing seen on TTE , may opt to re check until NURA is done -> PLACED ORDER TO RE CHECK TTE TO EVALUATE FOR ABSCESS AND VALVULAR DISFUNCTION Since cultures are negative, WBC coming down, and fevers resolved - likely likely to have endocarditis at this juncture, will continue to monitor on antibiotics Follow up pleural cultures Continue Abx six weeks Pain control D/c chest tube when output decrease PT/OT DVT GI prophylaxis Subjective Cardiovascular: Reports: no symptoms Respiratory: Reports: no symptoms Gastrointestinal/Abdominal: Reports: no symptoms Genitourinary: Reports: no symptoms Subjective Complain of pain and wants more pain medicine Transferred to floor, no distress, chest tube to suction Blood culture from 08/13 negative, WBC coming down now normal Continues to be on Abx NO acute events Labs are normal today Objective Last 24 Hour Vital Signs Date Time Temp Pulse Resp B/P (MAP) Pulse Ox O2 Delivery O2 Flow Rate FiO2 08/18/17 12:43 97.8 08/18/17 12:13 97.8 08/18/17 12:00 97.8 71 17 137/74 (95) 98 97.8 08/18/17 09:00 Room Air 08/18/17 08:11 97.4 08/18/17 08:00 98.7 90 21 127/68 (87) 96 98.7 08/18/17 04:00 97.4 72 19 134/76 (95) 96 97.4 08/18/17 00:00 97.0 86 19 137/76 (96) 97 97.0 08/17/17 23:42 76 20 Room Air 21 08/17/17 21:00 Room Air 08/17/17 20:00 98.1 81 18 145/67 (93) 96 98.1 08/17/17 16:00 97.4 92 20 111/64 (80) 95 97.4 08/17/17 15:51 98.4 General Appearance: no apparent distress EENT: PERRL/EOMI Neck: non-tender Rhythm: NSR Cardiovascular: normal peripheral pulses Respiratory/Chest: chest wall non-tender Abdomen: normal bowel sounds Extremities: normal range of motion Neurologic: traveler changer II-XII grossly normal Intake and Output 08/17/17 08/18/17 19:00 07:00 Intake Total 1020 ml 680 ml Output Total 1700 ml Balance 1020 ml -1020 ml Intake Oral 800 ml 350 ml IV Total 220 ml 330 ml Output Urine Total 1700 ml # Voids 4 # Bowel Movements 5 Laboratory Tests Test 08/18/17 06:10 White Blood Count 8.6 K/UL (4.8-10.8) Red Blood Count 3.61 M/UL (4.70-6.10) L Hemoglobin 10.6 G/DL (14.2-18.0) L Hematocrit 32.0 % (42.0-52.0) L Mean Corpuscular Volume 89 FL (80-99) Mean Corpuscular Hemoglobin 29.3 PG (27.0-31.0) Mean Corpuscular Hemoglobin Concent 33.1 G/DL (32.0-36.0) Red Cell Distribution Width 11.8 % (11.6-14.8) Platelet Count 433 K/UL (150-450) Mean Platelet Volume 5.6 FL (6.5-10.1) L Neutrophils (%) (Auto) 75.5 % (45.0-75.0) H Lymphocytes (%) (Auto) 19.5 % (20.0-45.0) L Monocytes (%) (Auto) 3.6 % (1.0-10.0) Eosinophils (%) (Auto) 1.0 % (0.0-3.0) Basophils (%) (Auto) 0.4 % (0.0-2.0) Sodium Level 140 MMOL/L (136-145) Potassium Level 3.9 MMOL/L (3.5-5.1) Chloride Level 107 MMOL/L (98-107) Carbon Dioxide Level 25 MMOL/L (21-32) Anion Gap 8 mmol/L (5-15) Blood Urea Nitrogen 6 mg/dL (7-18) L Creatinine 0.6 MG/DL (0.55-1.30) Estimat Glomerular Filtration Rate > 60 mL/min (>60) Glucose Level 92 MG/DL (74-106) Calcium Level 8.5 MG/DL (8.5-10.1) Phosphorus Level 4.2 MG/DL (2.5-4.9) Magnesium Level 2.1 MG/DL (1.8-2.4) Total Bilirubin 0.2 MG/DL (0.2-1.0) Aspartate Amino Transf (AST/SGOT) 25 U/L (15-37) Alanine Aminotransferase (ALT/SGPT) 33 U/L (12-78) Alkaline Phosphatase 82 U/L (46-116) Total Protein 7.2 G/DL (6.4-8.2) Albumin 1.9 G/DL (3.4-5.0) L Globulin 5.3 g/dL Albumin/Globulin Ratio 0.4 (1.0-2.7) L Murali Victoria M.D. Aug 18, 2017 14:18
[2017-08-18] MEDS ORDERED: NORCO 5-325 TA1 EACH ORAL (15:47)
--- NOTE | 2017-08-18 16:01 | General Progress Note ---
Assessment/Plan Problem List: (1) HIV (human immunodeficiency virus infection) ICD Codes: B20 - Human immunodeficiency virus [HIV] disease SNOMED: 23967834 (2) Abdominal pain ICD Codes: R10.9 - Unspecified abdominal pain SNOMED: 95832415 Qualifiers: Qualified Codes: R10.32 - Left lower quadrant pain (3) Constipated ICD Codes: K59.00 - Constipation, unspecified SNOMED: 79609141 (4) Hepatitis C ICD Codes: B19.20 - Unspecified viral hepatitis C without hepatic coma SNOMED: 96747286 (5) Hypoalbuminemia ICD Codes: E88.09 - Other disorders of plasma-protein metabolism, not elsewhere classified SNOMED: 953210892 (6) Bacteremia ICD Codes: R78.81 - Bacteremia SNOMED: 0632092 Status: progressing Assessment/Plan s/p chest tube pain at chest tube site hiv hcv abxp er id poor prognosis afebrile Subjective Respiratory: Reports: shortness of breath Allergies: Coded Allergies: No Known Allergies (Unverified , 08/06/17) Subjective pain and chest tube site Objective Last 24 Hour Vital Signs Date Time Temp Pulse Resp B/P (MAP) Pulse Ox O2 Delivery O2 Flow Rate FiO2 08/18/17 12:43 97.8 08/18/17 12:13 97.8 08/18/17 12:00 97.8 71 17 137/74 (95) 98 97.8 08/18/17 09:00 Room Air 08/18/17 08:11 97.4 08/18/17 08:00 98.7 90 21 127/68 (87) 96 98.7 08/18/17 04:00 97.4 72 19 134/76 (95) 96 97.4 08/18/17 00:00 97.0 86 19 137/76 (96) 97 97.0 08/17/17 23:42 76 20 Room Air 21 08/17/17 21:00 Room Air 08/17/17 20:00 98.1 81 18 145/67 (93) 96 98.1 Intake and Output 08/17/17 08/18/17 19:00 07:00 Intake Total 1020 ml 680 ml Output Total 1700 ml Balance 1020 ml -1020 ml Intake Oral 800 ml 350 ml IV Total 220 ml 330 ml Output Urine Total 1700 ml # Voids 4 # Bowel Movements 5 Laboratory Tests 08/18/17 06:10: White Blood Count 8.6, Red Blood Count 3.61L, Hemoglobin 10.6L, Hematocrit 32.0L , Mean Corpuscular Volume 89, Mean Corpuscular Hemoglobin 29.3, Mean Corpuscular Hemoglobin Concent 33.1, Red Cell Distribution Width 11.8, Platelet Count 433, Mean Platelet Volume 5.6L, Neutrophils (%) (Auto) 75.5H, Lymphocytes (%) (Auto) 19.5L, Monocytes (%) (Auto) 3.6, Eosinophils (%) (Auto) 1.0, Basophils (%) (Auto) 0.4, Sodium Level 140, Potassium Level 3.9, Chloride Level 107, Carbon Dioxide Level 25, Anion Gap 8, Blood Urea Nitrogen 6L, Creatinine 0.6, Estimat Glomerular Filtration Rate > 60, Glucose Level 92, Calcium Level 8.5, Phosphorus Level 4.2, Magnesium Level 2.1, Total Bilirubin 0.2, Aspartate Amino Transf (AST/SGOT) 25, Alanine Aminotransferase (ALT/SGPT) 33, Alkaline Phosphatase 82, Total Protein 7.2, Albumin 1.9L, Globulin 5.3, Albumin/Globulin Ratio 0.4L Height (Feet): 5 Height (Inches): 8.00 Weight (Pounds): 160 Respiratory/Chest: lungs clear Violette Rogers MD Aug 18, 2017 16:01
--- NOTE | 2017-08-18 19:30 | Pulmonology Progress Note ---
Assessment/Plan Problems: (1) Pleural effusion (2) Abdominal pain (3) Constipation (4) Hyponatremia (5) COPD (chronic obstructive pulmonary disease) (6) Hepatitis C (7) HIV (human immunodeficiency virus infection) Assessment/Plan chest tube removed BC positive for GPC , stap aureaus, last cultures are negative laxative, GI evaluation appreciated CXR in am respiratory treatment Hyponatremia w/u HIV studies, Hep C positive titrate fio2 to sat of 92% Subjective ROS Limited/Unobtainable: No Constitutional: Reports: no symptoms HEENT: Repors: no symptoms Respiratory: Reports: no symptoms Allergies: Coded Allergies: No Known Allergies (Unverified , 08/06/17) Objective Last 24 Hour Vital Signs Date Time Temp Pulse Resp B/P (MAP) Pulse Ox O2 Delivery O2 Flow Rate FiO2 08/18/17 12:43 97.8 08/18/17 12:13 97.8 08/18/17 12:00 97.8 71 17 137/74 (95) 98 97.8 08/18/17 09:00 Room Air 08/18/17 08:11 97.4 08/18/17 08:00 98.7 90 21 127/68 (87) 96 98.7 08/18/17 04:00 97.4 72 19 134/76 (95) 96 97.4 08/18/17 00:00 97.0 86 19 137/76 (96) 97 97.0 08/17/17 23:42 76 20 Room Air 21 08/17/17 21:00 Room Air 08/17/17 20:00 98.1 81 18 145/67 (93) 96 98.1 Intake and Output 08/17/17 08/18/17 19:00 07:00 Intake Total 1020 ml 680 ml Output Total 1700 ml Balance 1020 ml -1020 ml Intake Oral 800 ml 350 ml IV Total 220 ml 330 ml Output Urine Total 1700 ml # Voids 4 # Bowel Movements 5 Laboratory Tests 08/18/17 06:10: White Blood Count 8.6, Red Blood Count 3.61L, Hemoglobin 10.6L, Hematocrit 32.0L , Mean Corpuscular Volume 89, Mean Corpuscular Hemoglobin 29.3, Mean Corpuscular Hemoglobin Concent 33.1, Red Cell Distribution Width 11.8, Platelet Count 433, Mean Platelet Volume 5.6L, Neutrophils (%) (Auto) 75.5H, Lymphocytes (%) (Auto) 19.5L, Monocytes (%) (Auto) 3.6, Eosinophils (%) (Auto) 1.0, Basophils (%) (Auto) 0.4, Sodium Level 140, Potassium Level 3.9, Chloride Level 107, Carbon Dioxide Level 25, Anion Gap 8, Blood Urea Nitrogen 6L, Creatinine 0.6, Estimat Glomerular Filtration Rate > 60, Glucose Level 92, Calcium Level 8.5, Phosphorus Level 4.2, Magnesium Level 2.1, Total Bilirubin 0.2, Aspartate Amino Transf (AST/SGOT) 25, Alanine Aminotransferase (ALT/SGPT) 33, Alkaline Phosphatase 82, Total Protein 7.2, Albumin 1.9L, Globulin 5.3, Albumin/Globulin Ratio 0.4L Sally Cox MD Aug 18, 2017 19:30
--- NOTE | 2017-08-20 13:59 | Discharge Summary ---
Discharge Summary Discharge Summary _ DATE OF ADMISSION: 08/06/2017 DATE OF DISCHARGE: 08/18/2017. patient signed AGAINST MEDICAL ADVICE REASON FOR ADMISSION: 56 years old male with past medical history significant for substance abuse, COPD /asthma, HIV , hepatitis C , presented to emergency department with complaint of shortness of breath. He reported to stop smoking few days ago. He denied chest pain Patient also reported abdominal pain and not having bowel movement for 10 days. He reported nausea but no vomiting He felt dehydrated Urine output decreased, and he reported urine to be dark in color. Upon evaluation vital signs were stable Laboratory workup revealed leukocytosis Acute hyponatremia with sodium 120 Urine toxicology screen was positive for amphetamine and cocaine and marijuana. Chest x-ray revealed no acute intracranial cardiopulmonary pathology. CT of the abdomen and pelvis revealed no significant constipation. Abdominal ultrasound revealed no gallstones, no dilated ducts Patient admitted with diagnoses of acute hyponatremia, constipation, abdominal pain, HIV status. CONSULTANTS: home care assistant dr. Victoria pulmonary Dr. Cox ID specialist Dr. Almonte GI specialist Dr. Lee sales operations consultant Dr. Ewing cardiothoracic surgery Dr. Grimes HOSPITAL COURSE: Patient admitted and started on empiric antibiotics Supplemental oxygen provided as needed to keep pulse oximetry above 92% Pulmonary toilet provided as needed Skip Tender and ID specialist closely followed. Blood culture revealed methicillin sensitive Staphylococcus aureus Sputum culture was negative Repeated blood culture were persistently positive on 08/08; 08/10 and 08/11. Surveillance blood culture on 08/[address] of the chest revealed loculated left pleural effusion. Patient with persistent leukocytosis, trending up to 24 , patient was febrile Due to high suspicion for empyema , cardiothoracic surgery consult was requested cardiothoracic surgeon recommended to proceed with surgery: VATS, partial pleurectomy and decortication Surgery need, benefits and risks were explained in detail to the patient, who consented to surgery . Patient subsequently undergone surgery /VATS with partial pleurodesis and decortication on 08/14 Patient had a chest tube placed. Patient was followed up with daily chest x-ray , and output form chest tube was closely monitored. Chest x-ray revealed no pneumothorax Thoracic fluid culture was positive for Staphylococcus aureus AFB smear of thoracic fluid was negative. ID recommended to continue with the Oxacillin for 42 days due to MSSA bacteremia ID also recommended NURA to evaluate for endocarditis since patient had a high suspicion secondary to history of IV drug abuse and to evaluate for perivalvular abscess. Fungal and AFB culture of thoracic fluid and pathology were pending . Leukocytosis resolved , patient was afebrile. Computer Technical Support Specialist closely followed. After reviewing TTE no evidence of endocarditis, valvular destruction/ regurgitation, no evidence of septic emboli. Patient did not have septic pulmonary infarct, intracranial hemorrhage, conjunctival hemorrhage, Janeway lesion, Osler nodes. Computer Technical Support Specialist recommended until NURA treat infection as presumed endocarditis as he had persistent blood culture positive. Per cardio., if the blood culture would not clear , patient may need surgery. However since blood culture on 08/13 were negative, leukocytosis resolved, fevers resolved, patient less likely had endocarditis Computer Technical Support Specialist recommended to continue antibiotic for duration of treatment as recommended by ID specialist. Pain management provided ; pain was addressed. Blood pressure was closely monitored. CT of the abdomen and pelvis revealed no significant constipation ; diverticulosis without evidence of diverticulitis. Ultrasound of the abdomen revealed no gallstones and no dilated ducts. Bowel regimen instituted Patient subsequently had bowel movement Patient started on PPI. Antiemetics were on board as needed Supportive care provided GI recommended outpatient procedure. Hemoglobin and hematocrit were closely monitored with goal to keep hemoglobin above 7. Stool for occult blood was negative. Anemia workup was consistent with anemia of chronic disease and high ferritin Strict aspiration precautions were maintained. Learning Solutions Specialist closely followed. Workup for acute hyponatremia was initiated. Patient was on fluid restriction and received 3% sodium chloride infusion. Hyponatremia resolved and current within normal limits Spot diuresis with Lasix provided as per sales operations consultant Renal parameters, electrolytes were closely monitored; electrolytes were corrected as needed and nephrotoxins were avoided. Patient with history of HIV ,however ,according to patient,patient never was on the treatment Patient apparently non processor. T cell subsets revealed CD4 of 510. Viral load was not undetermined Patient with history of hepatitis C treatment 20 years ago with sustained virological response. Patient was counseled on abstinence from smoking. Patient declined nicotine patch. DVT and GI prophylaxis provided. On 08/18 chest tube was discontinued. Chest x-ray post removal of the chest tube revealed no pneumothorax Patient decided to sign AGAINST MEDICAL ADVICE The risks and consequences of signing against medical advice were discussed with the patient Patient verbalized understanding, signed the form and left. FINAL DIAGNOSES: Sepsis with persistent MSSA bacteremia Empyema Loculated left pleural effusion Status post VATS with partial pleurectomy and decortication COPD/asthma Acute hyponatremia, resolved Tobacco abuse Constipation HIV status Hepatitis C Polysubstance-abuse Hypertension Anemia of chronic disease Electrolyte imbalance : hypokalemia, hypophosphatemia History of IV drug abuse I have been assigned to dictate discharge summary for this account. I was not involved in the patient's management. Abbey Powell NP Aug 20, 2017 13:59
== END 2017-08-18 16:00 | disposition left against medical advice (07) | DRG 853 ==
LOC: EMR 10:13 → EDBEDREQ 10:44 → 4W 12:08 → EDBEDREQ 13:02 → ICU 08-14 10:52 → 2W 08-15 19:38 → 4E 08-16 21:53
PROC: 0B978ZZ Drainage of Left Main Bronchus, Via Natural or Artificial Opening Endoscopic (ICD-10-PCS; principal; 2017-08-14 07:30)
PROC: 0BCJ4ZZ Extirpation of Matter from Left Lower Lung Lobe, Percutaneous Endoscopic Approach (ICD-10-PCS; principal; 2017-08-14 07:30)
PROC: 0BBP4ZZ Excision of Left Pleura, Percutaneous Endoscopic Approach (ICD-10-PCS; principal; 2017-08-14 07:30)
PROC: 0BNP4ZZ Release Left Pleura, Percutaneous Endoscopic Approach (ICD-10-PCS; principal; 2017-08-14 07:30)
DX: A41.01 Sepsis due to Methicillin susceptible Staphylococcus aureus (principal); J18.9 Pneumonia, unspecified organism; J86.9 Pyothorax without fistula; E87.1 Hypo-osmolality and hyponatremia; J91.8 Pleural effusion in other conditions classified elsewhere; J44.0 Chronic obstructive pulmonary disease with (acute) lower respiratory infection; K59.09 Other constipation; F15.10 Other stimulant abuse, uncomplicated; F14.10 Cocaine abuse, uncomplicated; G89.29 Other chronic pain; E88.09 Other disorders of plasma-protein metabolism, not elsewhere classified; I10 Essential (primary) hypertension; F17.200 Nicotine dependence, unspecified, uncomplicated; E87.6 Hypokalemia; E83.39 Other disorders of phosphorus metabolism; K57.90 Diverticulosis of intestine, part unspecified, without perforation or abscess without bleeding
CPT/HCPCS: 36415; 36600; 71045; 71260; 74018; 74177; 76700; 80048; 80053; 80061; 80076; 80202; 80307; 81003; 82150; 82248; 82270; 82378; 82550; 82607; 82728; 82746; 82803; 82977; 83036; 83540; 83550; 83690; 83735; 83880; 83930; 83935; 84100; 84300; 84439; 84443; 84484; 84550; 85007; 85025; 85044; 85610; 85651; 85730; 86140; 86360; 86689; 86703; 86705; 86709; 86803; 86850; 86900; 86901; 86920; 87040; 87070; 87075; 87081; 87116; 87181; 87205; 87340; 87536; 93005; 93306; 94003; 94150; 94640; 94664; 94760; 97803; 99285; J2405; J2700; J2710; J8499

== ENCOUNTER 2017-08-24 22:10 | Inpatient (IN) | payer MEDICARE, OTHER ==
[~2017-08-24] VITALS: Ht 170.2 cm; Wt 73.7 kg
[~2017-08-24 22:10] MED LIST: NORCO 5-325 TA1 EACH ORAL
[2017-08-24] MEDS ORDERED: Cefepime HCl 1 GM in D5W 55 ML IVPB ONE (23:15)
[2017-08-24] MEDS ORDERED: Morphine Sulfate 4mg/ml Inj (IV USE ONLY) IVP ONE (23:15)
[2017-08-24] MEDS ORDERED: Vancomycin 1 GM in NS 275 ML IVPB ONE (23:15)
[2017-08-24 23:36] LABS: HEMATOCRIT 28.1 % (42.0-52.0); HEMOGLOBIN 9.7 G/DL (14.2-18.0); MEAN CORPUSCULAR VOLUME 86 FL (80-99); PLATELET COUNT 298 K/UL (150-450); RED BLOOD COUNT 3.26 M/UL (4.70-6.10); RED CELL DISTRIBUTION WIDTH 11.9 % (11.6-14.8); WHITE BLOOD COUNT 12.6 K/UL (4.8-10.8)
--- NOTE | 2017-08-24 23:41 | Diagnostic Imaging Report ---
EXAM: XR Chest, 1 View CLINICAL HISTORY: Shortness of breath TECHNIQUE: Frontal view of the chest. COMPARISON: No relevant prior studies available. FINDINGS: Lungs: Nonspecific bibasilar opacities are favored to represent atelectasis or scar. Stable bandlike density in the left mid long is compatible with atelectasis or scar. No consolidation or mass. Pleural space: Unremarkable. No pneumothorax. Heart: Unremarkable. No cardiomegaly. Mediastinum: Unremarkable. Bones/joints: No acute osseous abnormality. IMPRESSION: No acute cardiopulmonary process.
[2017-08-24 23:56] LABS: ALANINE AMINOTRANSFERASE 47 U/L (12-78); ALBUMIN/GLOBULIN RATIO 0.4 (1.0-2.7); ALKALINE PHOSPHATASE 86 U/L (46-116); ANION GAP 10 mmol/L (5-15); ASPARTATE AMINO TRANSFERASE 60 U/L (15-37); BILIRUBIN,TOTAL 0.5 MG/DL (0.2-1.0); BLOOD UREA NITROGEN 6 mg/dL (7-18); CALCIUM 8.4 MG/DL (8.5-10.1); CARBON DIOXIDE 26 MMOL/L (21-32); CHLORIDE 94 MMOL/L (98-107); CKMB 2.1 NG/ML (0.0-3.6); CREATINE KINASE 759 U/L (26-308); CREATININE 0.7 MG/DL (0.55-1.30); SODIUM 130 MMOL/L (136-145)
[2017-08-24 23:57] LABS: POTASSIUM 2.7 MMOL/L (3.5-5.1)
--- NOTE | 2017-08-25 00:56 | Emergency Room Report ---
History of Present Illness General Chief Complaint: Back Pain-No Injury Source: Patient, Medical Record Present Illness HPI Is a 56-year-old male who was recently admitted for sepsis and bacteremia from MSSA secondary to empyema of his left lung. He was here for IV antibiotics and thoracentesis. He signed out AMA. He called 911 because of severe weakness and pain. He was found in the bathtub and unable to get up. He complaining of back pain but mostly over the left rib area. Said that he's been having fever and chills. He crawl to the bathroom to wash up and can't get up. Pain is 10 out of 10. No nausea no vomiting. Fever subjective. No incontinence of bowel or urine. Allergies: Coded Allergies: No Known Allergies (Unverified , 08/06/17) Patient History Past Medical History: see triage record, old chart reviewed Past Surgical History: other Pertinent Family History: none Social History: Reports: smoking Immunizations: other Reviewed Nursing Documentation: PMH: Agreed; PSxH: Agreed Nursing Documentation-PMH Hx Cardiac Problems: Yes Hx Hypertension: Yes Hx Asthma: Yes Hx COPD: Yes Hx Cancer: No Hx Neurological Problems: No Review of Systems Constitutional: Reports: malaise, weakness Eye: Denies: eye pain, blurred vision ENT: Denies: ear pain, nose congestion, throat swelling Respiratory: Denies: cough, shortness of breath Cardiovascular: Denies: chest pain, palpitations Gastrointestinal: Denies: abdominal pain, diarrhea, nausea, vomiting Musculoskeletal: Reports: back pain; Denies: joint pain Skin: Denies: rash Neurological: Denies: headache, numbness Endocrine: Denies: increased thirst, increased urine Hematologic/Lymphatic: Denies: easy bruising All Other Systems: negative except mentioned in HPI Physical Exam Vital Signs Date Time Temp Pulse Resp B/P (MAP) Pulse Ox O2 Delivery O2 Flow Rate FiO2 08/24/17 21:59 99.8 111 18 138/72 94 Room Air 99.9 vitals with low-grade fever Sp02 EP Interpretation: normal General Appearance: thin, Chronically Ill Head: normocephalic, atraumatic Eyes: bilateral eye PERRL, bilateral eye EOMI ENT: hearing grossly normal, normal pharynx Neck: full range of motion, supple, no meningismus Respiratory: chest non-tender, normal breath sounds, rhonchi, other - left chest: Chest tube site show slight drainage and erythema Cardiovascular #1: regular rate, rhythm, no murmur Gastrointestinal: normal bowel sounds, non tender, no mass, no organomegaly, no bruit, non-distended Musculoskeletal: back normal, normal range of motion, other - no midline tenderness. Normal rectal tone. Neurologic: alert, oriented x3 Psychiatric: mood/affect normal Skin: warm/dry Medical Decision Making Diagnostic Impression: Primary Impression: Empyema Additional Impressions: Sepsis Qualified Codes: A41.9 - Sepsis, unspecified organism Anemia Qualified Codes: D64.9 - Anemia, unspecified Hypokalemia Drug abuse and dependence ER Course Patient with fever and weakness. He drained out AMA. He will need long-term IV antibiotics and may be residential placement. Chest x-ray showed no empyema. I started him on Zosyn and vancomycin to cover for MSSA. I hear no murmur. Because of his history, he may have endocarditis. I doubt spinal epidural abscess since he has no back pain on my exam. Most of his pain was over his rib area. No evidence of cauda equina syndrome. I discussed the case with Dr. Dietrich for admission. Rhythm Strip Diag. Results Rhythm Strip Time: 00:55 EP Interpretation: yes Rate: 95 Rhythm: NSR, no PVC's, no ectopy Chest X-Ray Diagnostic Results Chest X-Ray Diagnostic Results : Chest X-Ray Ordered: Yes # of Views/Limited/Complete: 1 View Indication: Shortness of Breath EP Interpretation: Yes Interpretation: no effusion, no pneumothorax, no acute cardiopulmonary disease, other - atelectasis Impression: No acute disease Electronically Signed by: Trell Armstrong MD Last Vital Signs Date Time Temp Pulse Resp B/P (MAP) Pulse Ox O2 Delivery O2 Flow Rate FiO2 08/24/17 21:59 99.8 111 18 138/72 94 Room Air 99.9 Status: improved Disposition: ADMITTED INPATIENT Condition: Serious Referrals: [facility],REFERRING (PCP) TRELL ARMSTRONG M.D. Aug 25, 2017 00:56
[2017-08-25 01:36] VITALS: BP 136/89
[2017-08-25 04:00] VITALS: BP 146/75
[2017-08-25 04:51] LABS: APPEARANCE,URINE CLEAR; BILIRUBIN, URINE NEGATIVE (NEGATIVE); GLUCOSE, URINE (UA) NEGATIVE (NEGATIVE); KETONES,URINE NEGATIVE (NEGATIVE); LEUKOCYTE ESTERASE ,URINE NEGATIVE (NEGATIVE); NITRITE,URINE NEGATIVE (NEGATIVE); PH,URINE 6 (4.5-8.0); PROTEIN,URINE 2+ (NEGATIVE); UROBILINOGEN,URINE NORMAL MG/DL (0.0-1.0)
[2017-08-25 04:59] LABS: COLOR,URINE YELLOW
--- NOTE | 2017-08-25 07:15 | Consultation ---
DATE OF CONSULTATION: 08/25/2017 INITIAL PSYCHIATRIC EVALUATION CONSULTING PHYSICIAN: Davis Galeas M.D. REQUESTING PHYSICIAN: Chemo Dietrich D.O. HISTORY OF PRESENT ILLNESS: This is a 56-year-old male patient who was admitted to the hospital at [facility] secondary to empyema and sepsis. He also has HIV, hepatitis C, and high levels of anxiety and depression, worsened by chronic pain that he has been exhibiting. His depression is becoming more severe specifically because of the pain take medications with his pain. ALLERGIES: He has no known drug allergies. SOCIAL HISTORY: This patient is financially supported by [employer] and Medicare HMO. Currently lives in a private residence. SUBSTANCE ABUSE HISTORY: He has a history of polysubstance abuse per chart. Apparently, the patient has been having problem with polysubstance and opioid abuse. PAST MEDICAL HISTORY: He has a history of HIV, hepatitis C, pleural effusion, bacteremia, and empyema. PSYCHIATRIC HISTORY: Major depressive disorder, rule out depression with psychotic features. He says he has had psychiatric care for it, however, he denies any previous psychiatric admissions, although he appears to be a poor historian. STRENGTHS: He is motivated to get better. WEAKNESSES: He is impulsive and does not have support system. FAMILY PSYCHIATRIC HISTORY: Denies. MENTAL STATUS EXAMINATION: A 56-year-old male. His appearance is disheveled. Attitude, irritable and agitated. Affect guarded and restricted. Intellect poor. Mood depressed and anxious. Motor activity, psychomotor agitation. Attention span is poor. Orientation x2. Speech is pressured. Thought process, disorganized and illogical. Thought content, denies auditory or visual hallucinations, but he does have some paranoia. His insight and judgment are poor. Short-term memory, 3/3 of a 3-word recall after 5 minutes delay with good short-term memory. Long-term memory is poor based on his lack of knowledge over long-term events such as which high school that he went to. DIAGNOSIS: Major depressive disorder, moderate, recurrent without psychotic features. PLAN: I am going to start this patient on a psychotropic medication regimen consisting of Neurontin at a dose of 300 mg three times a day. Once he is able to take oral medications, he will start that and then we are also going to start this patient on a dose of Cymbalta at a dose of 30 mg p.o. daily once he is able to tolerate oral medications just for depression and pain prophylaxis. In addition to that, Ativan at a dose of 1 mg q.6 h. p.r.n. anxiety and agitation. Also, I am going to provide 20 minutes of cognitive behavioral therapy to this patient who has negative thoughts and helping him to convert those to positive thoughts to reduce depression, anxiety, and suicidality. The patient was seen and assessed in his room. He had 20 minutes of cognitive behavioral therapy this morning. I would like to thank Dr. Chemo Dietrich for this interesting consultation. Chart was reviewed and discussed with staff. The patient was seen and assessed in his room. Gudelia Villa M.D. DR: KENNETH JOB#: [id number] CC:
[2017-08-25 07:50] LABS: BASOPHILS % (AUTO) 0.3 % (0.0-2.0); EOSINOPHILS % (AUTO) 0.1 % (0.0-3.0); HEMATOCRIT 24.8 % (42.0-52.0); HEMOGLOBIN 8.4 G/DL (14.2-18.0); LYMPHOCYTES % (AUTO) 10.2 % (20.0-45.0); MEAN CORPUSCULAR VOLUME 87 FL (80-99); MONOCYTES % (AUTO) 5.8 % (1.0-10.0); NEUTROPHILS % (AUTO) 83.5 % (45.0-75.0); PLATELET COUNT 254 K/UL (150-450); RED BLOOD COUNT 2.86 M/UL (4.70-6.10); RED CELL DISTRIBUTION WIDTH 12.2 % (11.6-14.8); WHITE BLOOD COUNT 10.8 K/UL (4.8-10.8)
[2017-08-25 08:00] VITALS: BP 135/77
[2017-08-25 08:06] LABS: ANION GAP 9 mmol/L (5-15); BLOOD UREA NITROGEN 4 mg/dL (7-18); CALCIUM 7.7 MG/DL (8.5-10.1); CARBON DIOXIDE 25 MMOL/L (21-32); CHLORIDE 97 MMOL/L (98-107); CREATININE 0.7 MG/DL (0.55-1.30); SODIUM 132 MMOL/L (136-145)
[2017-08-25 08:13] LABS: POTASSIUM 2.4 MMOL/L (3.5-5.1)
[2017-08-25] MEDS ORDERED: Albuterol/Ipratropium 3ml neb HHN PRN (08:15)
[2017-08-25] MEDS ORDERED: LORazepam Inj 2mg/ml 1ml IV PRN ×2 (08:15→08:30)
--- NOTE | 2017-08-25 08:47 | General Progress Note ---
Assessment/Plan Problem List: (1) Chronic pain ICD Codes: G89.29 - Other chronic pain SNOMED: 39728285 (2) Hypokalemia ICD Codes: E87.6 - Hypokalemia SNOMED: 69863981 (3) HIV (human immunodeficiency virus infection) ICD Codes: B20 - Human immunodeficiency virus [HIV] disease SNOMED: 64218372 (4) Sepsis ICD Codes: A41.9 - Sepsis, unspecified organism SNOMED: 69400642 Qualifiers: Qualified Codes: A41.9 - Sepsis, unspecified organism (5) Empyema ICD Codes: J86.9 - Pyothorax without fistula SNOMED: 763710562 (6) Drug abuse and dependence ICD Codes: F19.20 - Other psychoactive substance dependence, uncomplicated SNOMED: 9607020 Status: unchanged Assessment/Plan ot pt diet abx neph f/u cbc bmp am Subjective Constitutional: Reports: weakness Allergies: Coded Allergies: No Known Allergies (Unverified , 08/06/17) All Systems: reviewed and negative except above Subjective sl gen pain Objective Last 24 Hour Vital Signs Date Time Temp Pulse Resp B/P (MAP) Pulse Ox O2 Delivery O2 Flow Rate FiO2 08/25/17 08:00 97.6 98 20 135/77 (96) 95 97.6 08/25/17 05:07 Room Air 08/25/17 04:00 98.5 95 20 146/75 (98) 95 98.5 08/25/17 02:09 98.9 89 18 136/89 94 Room Air 98.9 08/25/17 01:36 98.9 89 18 136/89 94 Room Air 98.9 08/24/17 21:59 99.8 111 18 138/72 94 Room Air 99.9 Intake and Output 08/24/17 08/25/17 19:00 07:00 Intake Total 480 ml Output Total 1300 ml Balance -820 ml Intake Oral 480 ml Output Urine Total 1300 ml # Bowel Movements 2 Laboratory Tests 08/24/17 23:04: White Blood Count 12.6H, Red Blood Count 3.26L, Hemoglobin 9.7L, Hematocrit 28.1L, Mean Corpuscular Volume 86, Mean Corpuscular Hemoglobin 29.9, Mean Corpuscular Hemoglobin Concent 34.7, Red Cell Distribution Width 11.9, Platelet Count 298, Mean Platelet Volume 5.4L, Neutrophils (%) (Auto) , Lymphocytes (%) ( Auto) , Monocytes (%) (Auto) , Eosinophils (%) (Auto) , Basophils (%) (Auto) , Differential Total Cells Counted 100, Neutrophils % (Manual) 81H, Lymphocytes % (Manual) 9L, Monocytes % (Manual) 10, Eosinophils % (Manual) 0, Basophils % ( Manual) 0, Band Neutrophils 0, Platelet Estimate Adequate, Platelet Morphology Normal, Hypochromasia 2+, Anisocytosis 1+, Sodium Level 130L, Potassium Level 2.7*L, Chloride Level 94L, Carbon Dioxide Level 26, Anion Gap 10, Blood Urea Nitrogen 6L, Creatinine 0.7, Estimat Glomerular Filtration Rate > 60, Glucose Level 133H, Calcium Level 8.4L, Total Bilirubin 0.5, Aspartate Amino Transf (AST /SGOT) 60H, Alanine Aminotransferase (ALT/SGPT) 47, Alkaline Phosphatase 86, Total Creatine Kinase 759H, Creatine Kinase MB 2.1, Creatine Kinase MB Relative Index 0.2, Troponin I 0.017, Total Protein 7.6, Albumin 2.0L, Globulin 5.6, Albumin/Globulin Ratio 0.4L 08/24/17 23:53: Lactic Acid Level 1.00 08/25/17 03:39: Urine Color Yellow, Urine Appearance Clear, Urine pH 6, Urine Specific [place] 1.015, Urine Protein 2+H, Urine Glucose (UA) Negative, Urine Ketones Negative, Urine Occult Blood 4+H, Urine Nitrite Negative, Urine Bilirubin Negative, Urine Urobilinogen Normal, Urine Leukocyte Esterase Negative, Urine RBC 5-10H, Urine WBC 2-4, Urine Squamous Epithelial Cells Occasional, Urine Bacteria Few 08/25/17 06:45: White Blood Count 10.8, Red Blood Count 2.86L, Hemoglobin 8.4L, Hematocrit 24.8L , Mean Corpuscular Volume 87, Mean Corpuscular Hemoglobin 29.4, Mean Corpuscular Hemoglobin Concent 33.9, Red Cell Distribution Width 12.2, Platelet Count 254, Mean Platelet Volume 5.7L, Neutrophils (%) (Auto) 83.5H, Lymphocytes (%) (Auto) 10.2L, Monocytes (%) (Auto) 5.8, Eosinophils (%) (Auto) 0.1, Basophils (%) (Auto) 0.3, Sodium Level 132L, Potassium Level 2.4*L, Chloride Level 97L, Carbon Dioxide Level 25, Anion Gap 9, Blood Urea Nitrogen 4L, Creatinine 0.7, Estimat Glomerular Filtration Rate > 60, Glucose Level 214H, Calcium Level 7.7L Height (Feet): 5 Height (Inches): 7.00 Weight (Pounds): 150 General Appearance: lethargic EENT: normal ENT inspection Neck: normal alignment Cardiovascular: normal peripheral pulses, normal rate, regular rhythm Respiratory/Chest: chest wall non-tender, lungs clear, normal breath sounds Abdomen: normal bowel sounds, non tender, soft Extremities: normal inspection Edema: no edema noted Arm (L), no edema noted Arm (R), no edema noted Leg (L), no edema noted Leg (R), no edema noted Pedal (L), no edema noted Pedal (R), no edema noted Generalized Neurologic: responsive, motor weakness Skin: normal pigmentation, warm/dry Chemo Dietrich DO Aug 25, 2017 08:47
[2017-08-25] MEDS ORDERED: Morphine Sulfate 2mg/ml Inj(IV/IM USE ONLY) IVP PRN (09:15)
[2017-08-25] MEDS: Morphine Sulfate 4mg/ml Inj (IV USE ONLY) IVP PRN ×4 (09:21→22:41)
[2017-08-25] MEDS: DULoxetine 30mg cap ORAL SCH (09:21)
[2017-08-25] MEDS: Heparin 5000 units/ml inj SUBQ SCH ×2 (09:22→20:47)
[2017-08-25] MEDS ORDERED: Cefepime HCl 2 GM in D5W 110 ML IV SCH (10:00)
[2017-08-25] MEDS ORDERED: Vancomycin 1 GM in D5W 275 ML IVPB SCH (11:00)
[2017-08-25 12:00] VITALS: BP 155/77
--- NOTE | 2017-08-25 12:34 | Consultation ---
Consult Note Assessment/Plan 08/17/17 Assessment: Persistent MSSA Bacteremia- likely 2ry to empyema. Ro endocarditis (high risk) -s/p VATS, partial pleurectomy, decortication 08/14 -OR findings : Bronchoscopy: A minimal amount of mucopurulent secretion was lavaged and suctioned clear. No endobronchial lesions. -VATS: There were noted to be numerous adhesions tethering along to the surrounding chest wall. The disease appears to be localized in the left lower lobe as the left upper lobe was virtually spared. - OR cx MSSA AFB smear neg; c xp Empyema -08/16 CXR: Subcutaneous emphysema along the left chest unchanged. No appreciable pneumothorax. Interval decrease in linear opacities in the right mid and lower lung likely related to decreased atelectasis. Persistent streaky opacities in the left midlung. No acute osseous abnormality. 08/10-CT chest Left pleural effusion. Scalloped appearance suggests loculation. Presence of gas bubbles suggest infection by gas-forming organism. Gas bubbles appear trapped within the fluid rather than floating nondependently , indicating the fluid may be highly viscous. Sepsis -08/07 Bcx / MSSA; 08/08 4/4+; 08/10 2/4 +; 08/11 2/4+; 08/13 NTD x4 -CXR no acute disease -sp cx Normal respiratory mati Fever, SP Leukocytosis, worsened post-op, now improving Polysubstance abuse- refers last IVDA was ~7 yrs ago -UDS +THC, cocaine and amphetamines HIV - non progressor- per patient, never on Tx and CD4 >500 and UD VL -CD4 510 (39.2%), VL ND Hep C s/p tx (20 years ago) with sustained virologic response COPD/asthma tobacco abuse (stopped smoking 3d [employer]) Constipation -CT abd/p w/: Small left pleural effusion and left basilar atelectasis and possibly some consolidation. No definite acute abdominal or pelvic process. No CT evidence of significant constipation. Colonic diverticulosis. No evidence of diverticulitis. Mildly hypoattenuating liver, consistent with fatty change. 5 mm fat attenuation nodule is seen within the left adrenal. Prominent prostate, with nonspecific hypoattenuation. Subcentimeter low-attenuation left renal lesion, too small to characterize, most likely benign simple cysts. No further follow-up necessary Plan: - Cont IV Oxacillin ( AB Rx d# ) for MSSA bacteremia -08/10 SP Ceftriaxone d# 5 and IV Vancomycin #3 -08/06 SP Cefepime x1, Levaquin x1 -monitor LFTs -f/u Bcx x2 (last 08/13) -Recommend NURA to eval for endocarditis (high suspicion and to eval for perivalvular abscess) -f/u Lung tissue bacterial, fungal, AFB and pathology -Monitor CBC/BMP, temperatures -aspiration precautions Mushtaq Almonte MD Aug 25, 2017 12:34
--- NOTE | 2017-08-25 12:35 | Consultation ---
Consult Note Assessment/Plan ID [facility] # [id number] Mushtaq Almonte MD Aug 25, 2017 12:34
--- NOTE | 2017-08-25 14:04 | Consultation ---
History of Present Illness General Date patient seen: Aug 25, 2017 Chief Complaint: Back Pain-No Injury Reason for Consultation: right rib and back pain Present Illness HPI 56 year old male with history of left empyema s/p VATS. please see operative report of Dr. Grimes for details. was in recovery but left hospital AMA and went home. states became worse at home and had to return to ED. was admitted for care and management. on admission leukocytosis, back and chest wall pain, states everything hurts, weakness, generalized pain, hypokalemia. surgery called to evaluate for chest pain in post op patient. patient seen, chart reviewed, patient examined. Allergies: Coded Allergies: No Known Allergies (Unverified , 08/06/17) Medication History Scheduled PRN Hydrocodone Bit/Acetaminophen 5-325* ([place] 5-325*), 1 TAB ORAL Q4H PRN for For Pain, (Reported) Patient History History Provided By: Patient, Medical Record, PMD Healthcare decision maker Resuscitation status Full Code Advanced Directive on File Past Medical/Surgical History Past Medical/Surgical History: (1) Hepatitis C (2) Constipated (3) Hyponatremia (4) Abdominal pain (5) HIV (human immunodeficiency virus infection) (6) COPD (chronic obstructive pulmonary disease) (7) Polysubstance (excluding opioids) dependence (8) Hypoalbuminemia (9) Pleural effusion (10) Bacteremia (11) Thoracostomy tube in place (12) Hypokalemia (13) Anemia (14) Empyema (15) Drug abuse and dependence (16) Hypokalemia (17) Chronic pain (18) HIV (human immunodeficiency virus infection) (19) Sepsis Review of Systems All Other Systems: negative except mentioned in HPI Physical Exam General Appearance: no apparent distress HEENT: mucous membranes moist Neck: normal inspection Respiratory/Chest: normal breath sounds, no respiratory distress, no accessory muscle use Cardiovascular/Chest: normal rate Abdomen: non tender, soft, no organomegaly Extremities: normal inspection Skin Exam: warm/dry Neurologic: alert, responsive Last 24 Hour Vital Signs Date Time Temp Pulse Resp B/P (MAP) Pulse Ox O2 Delivery O2 Flow Rate FiO2 08/25/17 12:00 97.5 99 20 155/77 (103) 95 97.5 08/25/17 09:00 Room Air 08/25/17 08:00 97.6 98 20 135/77 (96) 95 97.6 08/25/17 05:07 Room Air 08/25/17 04:00 98.5 95 20 146/75 (98) 95 98.5 08/25/17 02:09 98.9 89 18 136/89 94 Room Air 98.9 08/25/17 01:36 98.9 89 18 136/89 94 Room Air 98.9 08/24/17 21:59 99.8 111 18 138/72 94 Room Air 99.9 Intake and Output 08/24/17 08/25/17 19:00 07:00 Intake Total 480 ml Output Total 1300 ml Balance -820 ml Intake Oral 480 ml Output Urine Total 1300 ml # Bowel Movements 2 Laboratory Tests Test 08/24/17 23:04 08/24/17 23:53 08/25/17 03:39 08/25/17 06:45 White Blood Count 12.6 K/UL (4.8-10.8) H 10.8 K/UL (4.8-10.8) Red Blood Count 3.26 M/UL (4.70-6.10) L 2.86 M/UL (4.70-6.10) L Hemoglobin 9.7 G/DL (14.2-18.0) L 8.4 G/DL (14.2-18.0) L Hematocrit 28.1 % (42.0-52.0) L 24.8 % (42.0-52.0) L Mean Corpuscular Volume 86 FL (80-99) 87 FL (80-99) Mean Corpuscular Hemoglobin 29.9 PG (27.0-31.0) 29.4 PG (27.0-31.0) Mean Corpuscular Hemoglobin Concent 34.7 G/DL (32.0-36.0) 33.9 G/DL (32.0-36.0) Red Cell Distribution Width 11.9 % (11.6-14.8) 12.2 % (11.6-14.8) Platelet Count 298 K/UL (150-450) 254 K/UL (150-450) Mean Platelet Volume 5.4 FL (6.5-10.1) L 5.7 FL (6.5-10.1) L Neutrophils (%) (Auto) % (45.0-75.0) 83.5 % (45.0-75.0) H Lymphocytes (%) (Auto) % (20.0-45.0) 10.2 % (20.0-45.0) L Monocytes (%) (Auto) % (1.0-10.0) 5.8 % (1.0-10.0) Eosinophils (%) (Auto) % (0.0-3.0) 0.1 % (0.0-3.0) Basophils (%) (Auto) % (0.0-2.0) 0.3 % (0.0-2.0) Differential Total Cells Counted 100 Neutrophils % (Manual) 81 % (45-75) H Lymphocytes % (Manual) 9 % (20-45) L Monocytes % (Manual) 10 % (1-10) Eosinophils % (Manual) 0 % (0-3) Basophils % (Manual) 0 % (0-2) Band Neutrophils 0 % (0-8) Platelet Estimate Adequate Platelet Morphology Normal Hypochromasia 2+ Anisocytosis 1+ Sodium Level 130 MMOL/L (136-145) L 132 MMOL/L (136-145) L Potassium Level 2.7 MMOL/L (3.5-5.1) *L 2.4 MMOL/L (3.5-5.1) *L Chloride Level 94 MMOL/L (98-107) L 97 MMOL/L (98-107) L Carbon Dioxide Level 26 MMOL/L (21-32) 25 MMOL/L (21-32) Anion Gap 10 mmol/L (5-15) 9 mmol/L (5-15) Blood Urea Nitrogen 6 mg/dL (7-18) L 4 mg/dL (7-18) L Creatinine 0.7 MG/DL (0.55-1.30) 0.7 MG/DL (0.55-1.30) Estimat Glomerular Filtration Rate > 60 mL/min (>60) > 60 mL/min (>60) Glucose Level 133 MG/DL (74-106) H 214 MG/DL (74-106) H Calcium Level 8.4 MG/DL (8.5-10.1) L 7.7 MG/DL (8.5-10.1) L Total Bilirubin 0.5 MG/DL (0.2-1.0) Aspartate Amino Transf (AST/SGOT) 60 U/L (15-37) H Alanine Aminotransferase (ALT/SGPT) 47 U/L (12-78) Alkaline Phosphatase 86 U/L (46-116) Total Creatine Kinase 759 U/L (26-308) H Creatine Kinase MB 2.1 NG/ML (0.0-3.6) Creatine Kinase MB Relative Index 0.2 Troponin I 0.017 ng/mL (0.000-0.056) Total Protein 7.6 G/DL (6.4-8.2) Albumin 2.0 G/DL (3.4-5.0) L Globulin 5.6 g/dL Albumin/Globulin Ratio 0.4 (1.0-2.7) L Lactic Acid Level 1.00 mmol/L (0.4-2.0) Urine Color Yellow Urine Appearance Clear Urine pH 6 (4.5-8.0) Urine Specific [place] 1.015 (1.005-1.035) Urine Protein 2+ (NEGATIVE) H Urine Glucose (UA) Negative (NEGATIVE) Urine Ketones Negative (NEGATIVE) Urine Occult Blood 4+ (NEGATIVE) H Urine Nitrite Negative (NEGATIVE) Urine Bilirubin Negative (NEGATIVE) Urine Urobilinogen Normal MG/DL (0.0-1.0) Urine Leukocyte Esterase Negative (NEGATIVE) Urine RBC 5-10 /HPF (0 - 0) H Urine WBC 2-4 /HPF (0 - 0) Urine Squamous Epithelial Cells Occasional /LPF Urine Bacteria Few /HPF (NONE) Microbiology Date/Time Source Procedure Growth Status 08/25/17 03:00 Rectum Received Height (Feet): 5 Height (Inches): 7.00 Weight (Pounds): 150 Medications Current Medications Medications (Trade) Dose Ordered Sig/Veronica Route PRN Reason Start Time Stop Time Status Last Admin Dose Admin Acetaminophen (Tylenol) 650 mg Q4H PRN ORAL FEVER 08/25/17 08:15 09/24/17 08:14 Albuterol/ Ipratropium (Albuterol/ Ipratropium) 3 ml EVERY 4 HOURS PRN HHN Shortness of Breath 08/25/17 08:15 08/30/17 08:14 Cefepime HCl 2 gm/ Dextrose 110 ml @ 220 mls/hr EVERY 12 HOURS IV 08/25/17 10:00 09/01/17 09:59 08/25/17 11:06 Dextrose (Dextrose 50%) 25 ml STAT PRN IV Hypoglycemia 08/25/17 08:15 09/24/17 08:14 Dextrose (Dextrose 50%) 50 ml STAT PRN IV Hypoglycemia 08/25/17 08:30 09/24/17 08:29 Duloxetine HCl (Cymbalta) 30 mg DAILY ORAL 08/25/17 09:00 09/24/17 08:59 08/25/17 09:21 Gabapentin (Neurontin) 300 mg THREE TIMES A DAY ORAL 08/25/17 09:00 09/24/17 08:59 08/25/17 13:16 Heparin Sodium (Porcine) (Heparin 5000 units/ml) 5,000 units EVERY 12 HOURS SUBQ 08/25/17 09:00 09/24/17 08:59 08/25/17 09:22 Lorazepam (Ativan 2mg/ml 1ml) 2 mg EVERY 2 HOURS PRN IV For Anxiety 08/25/17 08:30 09/01/17 08:14 Lorazepam (Ativan) 1 mg Q6H PRN ORAL For Anxiety 08/25/17 04:30 09/01/17 04:29 Morphine Sulfate (Morphine Sulfate) 4 mg EVERY 4 HOURS PRN IVP Severe Pain (Pain Scale 7-10) 08/25/17 08:15 09/01/17 08:14 08/25/17 13:27 Ondansetron HCl (Zofran) 4 mg Q6H PRN IVP Nausea & Vomiting 08/25/17 08:15 09/24/17 08:14 Polyethylene Glycol (Miralax) 17 gm DAILYPRN PRN ORAL Constipation 08/25/17 08:15 09/24/17 08:14 Potassium Chloride (K-Dur) 40 meq Q4HR ORAL 08/25/17 09:00 08/25/17 17:01 08/25/17 13:16 Sodium Chloride 1,000 ml @ 50 mls/hr Q20H IV 08/25/17 09:30 09/24/17 09:29 08/25/17 09:23 Vancomycin HCl 1 gm/Dextrose 275 ml @ 183.3 mls/ hr Q12H IVPB 08/25/17 11:00 08/30/17 10:59 08/25/17 13:16 Assessment/Plan Problem List: (1) Empyema Assessment & Plan: s/p VATS. since chest tube removed. wounds healing. no signs of surgical site infection. does have pain on left ribs and likely healing from surgery patient signed out AMA last hospitalization prior to completion of therapy. will repeat CT chest IV Abx will discuss with Dr. Grimes. ICD Codes: J86.9 - Pyothorax without fistula SNOMED: 262799492 Status: stable PeaceBrian Aug 25, 2017 14:04
[2017-08-25] MEDS ORDERED: Isovue-300 100ml vial INJ PRN (14:15)
[2017-08-25] MEDS ORDERED: Tubing IV Secondary IV ONE (15:46)
[2017-08-25] MEDS ORDERED: NS 275ml ONE (15:46)
[2017-08-25 16:00] VITALS: BP 125/71
[2017-08-25] MEDS ORDERED: Gadavist 7.5mMol/7.5ml vial IV PRN (17:00)
[2017-08-25 20:00] VITALS: BP 127/62
[2017-08-25] MEDS: Oxacillin 2 GM in NS 110 ML IVPB SCH (20:46)
[2017-08-25] MEDS: LORazepam 1mg tab ORAL PRN (20:50)
[2017-08-26] VITALS: BP 121/63
--- NOTE | 2017-08-26 00:16 | Consultation ---
DATE OF CONSULTATION: 08/25/2017 INFECTIOUS DISEASE CONSULTATION CONSULTING PHYSICIAN: Mushtaq Almonte M.D. REFERRING PHYSICIAN: Chemo Dietrich D.O. REASON FOR CONSULTATION: Evaluation of the patient for empyema and bacteremia. HISTORY OF PRESENT ILLNESS: The patient is a 56-year-old male with multiple medical problems, well known to our service from recent admission. The patient was admitted recently for emesis with bacteremia and was found to have empyema and sepsis. The patient underwent VATS and decortication. However, the patient left AMA, now comes back to the hospital with a left-sided posterior chest and back pain. The patient did not receive any antibiotics since he left the hospital. Infectious Disease consultation has been requested for further evaluation of the patient and antibiotic management. PAST MEDICAL HISTORY: 1. MSSA bacteremia. 2. History of MSSA empyema. 3. History of recent sepsis. 4. History of polysubstance abuse in the past. 5. Ex-intravenous drug abuser. 6. History of human immunodeficiency virus, nonprogressive with a CD4 count of 510 and undetectable viral load. 7. History of hepatitis C status post treatment. 8. History of chronic obstructive pulmonary disease and asthma. 9. History of tobacco abuse. MEDICATIONS: The patient is on cefepime and vancomycin here. ALLERGIES: No known drug allergies. SOCIAL HISTORY: As mentioned above. FAMILY HISTORY: Not contributing. REVIEW OF SYSTEMS: A 10-point review was done and except what was mentioned above has been negative. PHYSICAL EXAMINATION: VITAL SIGNS: Temperature 97, blood pressure 125/71, pulse 86, and respiratory rate 18. HEENT: No pale conjunctivae. No icterus. NECK: No lymphadenopathy. CHEST: Clear. Incision site is healing. HEART: S1 and S2. ABDOMEN: Soft and nontender. BACK: The patient has tenderness in the lower thoracic and lumbar area. EXTREMITIES: No cyanosis. NEUROLOGIC: Awake and alert. LABORATORY AND DIAGNOSTIC DATA: White blood cells at the time of admission 12, today is 10, hemoglobin 8, and platelets 254,000. UA unremarkable. BUN 4 and creatinine 0.6. ALT, AST, and alkaline phosphatase were all unremarkable. Hepatitis C antibody positive. ASSESSMENT: 1. The patient is a 56-year-old male with multiple medical problems, who has recent empyema/bacteremia due to methicillin-sensitive Staphylococcus aureus status post laboratories. 2. Mild leukocytosis status post. 3. Afebrile. 4. Probable endocarditis (NURA was not done). 5. Low back pain, rule out osteomyelitis. PLAN: 1. The patient is on oxacillin day # (the patient received 10 days of oxacillin prior to discharge). 2. Monitor CBC. 3. Monitor BMP. 4. Monitor cultures. 5. Chest CT has been ordered. 6. We will order an MRI of the thoracolumbar to rule out diskitis/osteomyelitis/abscess. 7. We will hold cefepime and vancomycin. 8. Based on the patient's clinical course and laboratories, we will do further recommendations. Mushtaq Almonte M.D. DR: NAYLA JOB#: [id number] CC:
[2017-08-26] MEDS: Oxacillin 2 GM in NS 110 ML IVPB SCH ×6 (00:49→20:42)
[2017-08-26] MEDS: Morphine Sulfate 4mg/ml Inj (IV USE ONLY) IVP PRN ×3 (02:43→11:14)
[2017-08-26 04:00] VITALS: BP 121/60
--- NOTE | 2017-08-26 07:52 | General Progress Note ---
Assessment/Plan Problem List: (1) Chronic pain ICD Codes: G89.29 - Other chronic pain SNOMED: 09118812 (2) Hypokalemia ICD Codes: E87.6 - Hypokalemia SNOMED: 50442519 (3) HIV (human immunodeficiency virus infection) ICD Codes: B20 - Human immunodeficiency virus [HIV] disease SNOMED: 21082772 (4) Sepsis ICD Codes: A41.9 - Sepsis, unspecified organism SNOMED: 18639683 Qualifiers: Qualified Codes: A41.9 - Sepsis, unspecified organism (5) Empyema ICD Codes: J86.9 - Pyothorax without fistula SNOMED: 510005123 (6) Drug abuse and dependence ICD Codes: F19.20 - Other psychoactive substance dependence, uncomplicated SNOMED: 9402400 Status: stable, progressing Assessment/Plan ot pt diet abx neph f/u cbc bmp am Subjective Constitutional: Reports: weakness Allergies: Coded Allergies: No Known Allergies (Unverified , 08/06/17) All Systems: reviewed and negative except above Subjective sleepy calm Objective Last 24 Hour Vital Signs Date Time Temp Pulse Resp B/P (MAP) Pulse Ox O2 Delivery O2 Flow Rate FiO2 08/26/17 04:00 98.2 91 20 121/60 (80) 90 98.2 08/26/17 02:23 88 20 96 Room Air 21 08/26/17 02:15 90 22 91 Room Air 21 08/26/17 00:00 98.9 82 21 121/63 (82) 95 98.9 08/25/17 21:00 Room Air 08/25/17 20:44 94 20 Room Air 08/25/17 20:00 99.2 89 20 127/62 (83) 95 99.2 08/25/17 16:00 97.8 92 20 125/71 (89) 95 97.8 08/25/17 12:00 97.5 99 20 155/77 (103) 95 97.5 08/25/17 09:00 Room Air 08/25/17 08:00 97.6 98 20 135/77 (96) 95 97.6 Intake and Output 08/25/17 08/26/17 19:00 07:00 Intake Total 1140 ml 730 ml Output Total 2300 ml 1700 ml Balance -1160 ml -970 ml Intake Oral 1090 ml IV Total 50 ml 730 ml Output Urine Total 2300 ml 1700 ml # Bowel Movements 5 Height (Feet): 5 Height (Inches): 7.00 Weight (Pounds): 150 General Appearance: lethargic EENT: normal ENT inspection Neck: normal alignment Cardiovascular: normal peripheral pulses, normal rate, regular rhythm Respiratory/Chest: chest wall non-tender, decreased breath sounds Abdomen: normal bowel sounds, non tender, soft Extremities: normal inspection Edema: no edema noted Arm (L), no edema noted Arm (R), no edema noted Leg (L), no edema noted Leg (R), no edema noted Pedal (L), no edema noted Pedal (R), no edema noted Generalized Neurologic: motor weakness Skin: normal pigmentation, warm/dry Chemo Dietrich DO Aug 26, 2017 07:52
[2017-08-26 08:00] VITALS: BP 123/64
[2017-08-26 08:43] LABS: HEMATOCRIT 25.1 % (42.0-52.0); HEMOGLOBIN 7.9 G/DL (14.2-18.0); MEAN CORPUSCULAR VOLUME 87 FL (80-99); PLATELET COUNT 275 K/UL (150-450); RED BLOOD COUNT 2.89 M/UL (4.70-6.10); RED CELL DISTRIBUTION WIDTH 12.5 % (11.6-14.8); WHITE BLOOD COUNT 9.3 K/UL (4.8-10.8)
[2017-08-26 09:02] LABS: ALBUMIN 1.6 G/DL (3.4-5.0); ANION GAP 7 mmol/L (5-15); BLOOD UREA NITROGEN 4 mg/dL (7-18); CALCIUM 8.2 MG/DL (8.5-10.1); CARBON DIOXIDE 26 MMOL/L (21-32); CHLORIDE 95 MMOL/L (98-107); CREATININE 0.5 MG/DL (0.55-1.30); PHOSPHORUS 2.6 MG/DL (2.5-4.9); SODIUM 128 MMOL/L (136-145)
[2017-08-26 09:03] LABS: ANION GAP 6 mmol/L (5-15); BLOOD UREA NITROGEN 4 mg/dL (7-18); CARBON DIOXIDE 27 MMOL/L (21-32); CHLORIDE 96 MMOL/L (98-107); CREATININE 0.6 MG/DL (0.55-1.30); POTASSIUM 4.4 MMOL/L (3.5-5.1); SODIUM 129 MMOL/L (136-145)
[2017-08-26] MEDS: DULoxetine 30mg cap ORAL SCH (09:15)
[2017-08-26] MEDS: Heparin 5000 units/ml inj SUBQ SCH ×2 (09:16→20:43)
[2017-08-26 12:00] VITALS: BP 112/64
--- NOTE | 2017-08-26 12:08 | Consultation ---
History of Present Illness General Date patient seen: Aug 26, 2017 Present Illness Allergies: Coded Allergies: No Known Allergies (Unverified , 08/06/17) Medication History Scheduled PRN Hydrocodone Bit/Acetaminophen 5-325* ([place] 5-325*), 1 TAB ORAL Q4H PRN for For Pain, (Reported) Patient History Healthcare decision maker Resuscitation status Full Code Advanced Directive on File Physical Exam Last 24 Hour Vital Signs Date Time Temp Pulse Resp B/P (MAP) Pulse Ox O2 Delivery O2 Flow Rate FiO2 08/26/17 09:00 Room Air 08/26/17 08:00 98.6 96 20 123/64 (83) 90 98.6 08/26/17 04:00 98.2 91 20 121/60 (80) 90 98.2 08/26/17 02:23 88 20 96 Room Air 21 08/26/17 02:15 90 22 91 Room Air 21 08/26/17 00:00 98.9 82 21 121/63 (82) 95 98.9 08/25/17 21:00 Room Air 08/25/17 20:44 94 20 Room Air 08/25/17 20:00 99.2 89 20 127/62 (83) 95 99.2 08/25/17 16:00 97.8 92 20 125/71 (89) 95 97.8 Intake and Output 08/25/17 08/26/17 19:00 07:00 Intake Total 1140 ml 730 ml Output Total 2300 ml 1700 ml Balance -1160 ml -970 ml Intake Oral 1090 ml IV Total 50 ml 730 ml Output Urine Total 2300 ml 1700 ml # Bowel Movements 5 Laboratory Tests Test 08/26/17 07:10 White Blood Count 9.3 K/UL (4.8-10.8) Red Blood Count 2.89 M/UL (4.70-6.10) L Hemoglobin 7.9 G/DL (14.2-18.0) L Hematocrit 25.1 % (42.0-52.0) L Mean Corpuscular Volume 87 FL (80-99) Mean Corpuscular Hemoglobin 27.5 PG (27.0-31.0) Mean Corpuscular Hemoglobin Concent 31.7 G/DL (32.0-36.0) L Red Cell Distribution Width 12.5 % (11.6-14.8) Platelet Count 275 K/UL (150-450) Mean Platelet Volume 5.6 FL (6.5-10.1) L Neutrophils (%) (Auto) % (45.0-75.0) Lymphocytes (%) (Auto) % (20.0-45.0) Monocytes (%) (Auto) % (1.0-10.0) Eosinophils (%) (Auto) % (0.0-3.0) Basophils (%) (Auto) % (0.0-2.0) Differential Total Cells Counted 100 Neutrophils % (Manual) 85 % (45-75) H Lymphocytes % (Manual) 11 % (20-45) L Monocytes % (Manual) 4 % (1-10) Eosinophils % (Manual) 0 % (0-3) Basophils % (Manual) 0 % (0-2) Band Neutrophils 0 % (0-8) Platelet Estimate Adequate Platelet Morphology Normal Hypochromasia 1+ Sodium Level 129 MMOL/L (136-145) L Potassium Level 4.4 MMOL/L (3.5-5.1) Chloride Level 96 MMOL/L (98-107) L Carbon Dioxide Level 27 MMOL/L (21-32) Anion Gap 6 mmol/L (5-15) Blood Urea Nitrogen 4 mg/dL (7-18) L Creatinine 0.6 MG/DL (0.55-1.30) Estimat Glomerular Filtration Rate > 60 mL/min (>60) Glucose Level 111 MG/DL (74-106) H Calcium Level 8.0 MG/DL (8.5-10.1) L Phosphorus Level 2.6 MG/DL (2.5-4.9) Albumin 1.6 G/DL (3.4-5.0) L Microbiology Date/Time Source Procedure Growth Status 08/25/17 18:00 Sputum Gram Stain Pending Resulted 08/25/17 18:00 Sputum Sputum Culture - Preliminary NO GROWTH Resulted Height (Feet): 5 Height (Inches): 7.00 Weight (Pounds): 150 Medications Current Medications Medications (Trade) Dose Ordered Sig/Veronica Route PRN Reason Start Time Stop Time Status Last Admin Dose Admin Acetaminophen (Tylenol) 650 mg Q4H PRN ORAL FEVER 08/25/17 08:15 09/24/17 08:14 Albuterol/ Ipratropium (Albuterol/ Ipratropium) 3 ml EVERY 4 HOURS PRN HHN Shortness of Breath 08/25/17 08:15 08/30/17 08:14 08/26/17 02:15 Dextrose (Dextrose 50%) 25 ml STAT PRN IV Hypoglycemia 08/25/17 08:15 09/24/17 08:14 Dextrose (Dextrose 50%) 50 ml STAT PRN IV Hypoglycemia 08/25/17 08:30 09/24/17 08:29 Duloxetine HCl (Cymbalta) 30 mg DAILY ORAL 08/25/17 09:00 09/24/17 08:59 08/26/17 09:15 Gabapentin (Neurontin) 300 mg THREE TIMES A DAY ORAL 08/25/17 09:00 09/24/17 08:59 08/26/17 09:15 Gadobutrol (Gadavist) 7.5 mmol NOW PRN IV Radiology Procedure 08/25/17 17:00 08/29/17 16:55 Heparin Sodium (Porcine) (Heparin 5000 units/ml) 5,000 units EVERY 12 HOURS SUBQ 08/25/17 09:00 09/24/17 08:59 08/26/17 09:16 Iopamidol (Isovue-300 100ml) 100 ml NOW PRN INJ Radiology Procedure 08/25/17 14:15 08/27/17 14:04 Lorazepam (Ativan 2mg/ml 1ml) 2 mg EVERY 2 HOURS PRN IV For Anxiety 08/25/17 08:30 09/01/17 08:14 Lorazepam (Ativan) 1 mg Q6H PRN ORAL For Anxiety 08/25/17 04:30 09/01/17 04:29 08/25/17 20:50 Morphine Sulfate (Morphine Sulfate) 4 mg EVERY 4 HOURS PRN IVP Severe Pain (Pain Scale 7-10) 08/25/17 08:15 09/01/17 08:14 08/26/17 11:14 Ondansetron HCl (Zofran) 4 mg Q6H PRN IVP Nausea & Vomiting 08/25/17 08:15 09/24/17 08:14 Oxacillin Sodium 2 gm/Sodium Chloride 110 ml @ 220 mls/hr Q4HR IVPB 08/25/17 21:00 09/01/17 20:59 08/26/17 09:15 Polyethylene Glycol (Miralax) 17 gm DAILYPRN PRN ORAL Constipation 08/25/17 08:15 09/24/17 08:14 Sodium Chloride 1,000 ml @ 50 mls/hr Q20H IV 08/25/17 09:30 09/24/17 09:29 08/26/17 05:09 Assessment/Plan Assessment/Plan (1) Intercostal Neuropathy (2) Lumbar spondylosis (3) Peripheral Neuropathy seen dictated Mark Rausch Aug 26, 2017 12:08
--- NOTE | 2017-08-26 13:10 | General Surgery Progress Note ---
General Surgery-Progress Note Subjective Additional Comments no acute events. asking for pain meds. Objective Last 24 Hour Vital Signs Date Time Temp Pulse Resp B/P (MAP) Pulse Ox O2 Delivery O2 Flow Rate FiO2 08/26/17 12:00 98.2 86 20 112/64 (80) 90 98.2 08/26/17 09:00 Room Air 08/26/17 08:00 98.6 96 20 123/64 (83) 90 98.6 08/26/17 04:00 98.2 91 20 121/60 (80) 90 98.2 08/26/17 02:23 88 20 96 Room Air 21 08/26/17 02:15 90 22 91 Room Air 21 08/26/17 00:00 98.9 82 21 121/63 (82) 95 98.9 08/25/17 21:00 Room Air 08/25/17 20:44 94 20 Room Air 08/25/17 20:00 99.2 89 20 127/62 (83) 95 99.2 08/25/17 16:00 97.8 92 20 125/71 (89) 95 97.8 I&O Intake and Output 08/25/17 08/26/17 19:00 07:00 Intake Total 1140 ml 730 ml Output Total 2300 ml 1700 ml Balance -1160 ml -970 ml Intake Oral 1090 ml IV Total 50 ml 730 ml Output Urine Total 2300 ml 1700 ml # Bowel Movements 5 Wound: clean, dry Drains: none Cardiovascular: RSR Respiratory: clear Abdomen: soft, non-tender, present bowel sounds Extremities: no cyanosis Laboratory Tests Test 08/26/17 07:10 White Blood Count 9.3 K/UL (4.8-10.8) Red Blood Count 2.89 M/UL (4.70-6.10) L Hemoglobin 7.9 G/DL (14.2-18.0) L Hematocrit 25.1 % (42.0-52.0) L Mean Corpuscular Volume 87 FL (80-99) Mean Corpuscular Hemoglobin 27.5 PG (27.0-31.0) Mean Corpuscular Hemoglobin Concent 31.7 G/DL (32.0-36.0) L Red Cell Distribution Width 12.5 % (11.6-14.8) Platelet Count 275 K/UL (150-450) Mean Platelet Volume 5.6 FL (6.5-10.1) L Neutrophils (%) (Auto) % (45.0-75.0) Lymphocytes (%) (Auto) % (20.0-45.0) Monocytes (%) (Auto) % (1.0-10.0) Eosinophils (%) (Auto) % (0.0-3.0) Basophils (%) (Auto) % (0.0-2.0) Differential Total Cells Counted 100 Neutrophils % (Manual) 85 % (45-75) H Lymphocytes % (Manual) 11 % (20-45) L Monocytes % (Manual) 4 % (1-10) Eosinophils % (Manual) 0 % (0-3) Basophils % (Manual) 0 % (0-2) Band Neutrophils 0 % (0-8) Platelet Estimate Adequate Platelet Morphology Normal Hypochromasia 1+ Sodium Level 129 MMOL/L (136-145) L Potassium Level 4.4 MMOL/L (3.5-5.1) Chloride Level 96 MMOL/L (98-107) L Carbon Dioxide Level 27 MMOL/L (21-32) Anion Gap 6 mmol/L (5-15) Blood Urea Nitrogen 4 mg/dL (7-18) L Creatinine 0.6 MG/DL (0.55-1.30) Estimat Glomerular Filtration Rate > 60 mL/min (>60) Glucose Level 111 MG/DL (74-106) H Calcium Level 8.0 MG/DL (8.5-10.1) L Phosphorus Level 2.6 MG/DL (2.5-4.9) Albumin 1.6 G/DL (3.4-5.0) L Plan Problems: (1) Empyema Assessment & Plan: s/p VATS. since chest tube removed. wounds healing. no signs of surgical site infection. does have pain on left ribs and likely healing from surgery patient signed out AMA last hospitalization prior to completion of therapy. Pending repeat CT chest IV Abx discussed with Dr. Grimes. will follow with Brian Milligan Aug 26, 2017 13:10
--- NOTE | 2017-08-26 15:06 | Diagnostic Imaging Report ---
EXAM: CT Chest Without and With Intravenous Contrast CLINICAL HISTORY: ABSCESS TECHNIQUE: Axial computed tomography images of the chest without and with intravenous contrast. CTDI is 16.65 mGy and DLP is 629 mGy-cm. One or more of the following dose reduction techniques were used: automated exposure control, adjustment of the mA and/or kV according to patient size, use of iterative reconstruction technique. COMPARISON: CT chest 08/10/17 FINDINGS: Lungs: Bilateral lower lobe atelectasis/consolidations and air space disease, similar. Pleural space: Increased size of loculated right pleural effusion. Small air in the pleural space. Smaller residual left loculated pleural fluid with small air. Small to moderate fluid collection now in the left fissure. Heart: Unremarkable. No cardiomegaly. No significant pericardial effusion. Bones/joints: Unremarkable. No acute fracture. No dislocation. Soft tissues: Left chest wall emphysema. Vasculature: Unremarkable. No thoracic aortic aneurysm. Lymph nodes: Numerous enlarged mediastinal lymph nodes. IMPRESSION: 1. Increased size of loculated right pleural effusion. Small air in the pleural space. 2. Smaller residual left loculated pleural fluid with small air. Small to moderate fluid collection now in the left fissure. 3. Bilateral lower lobe atelectasis/consolidations and air space disease, similar.
[2017-08-26] MEDS: HYDROcodone/Acetamin 10/325 tab ORAL PRN ×2 (15:09→20:42)
[2017-08-26 16:00] VITALS: BP 100/64
[2017-08-26] MEDS ORDERED: 1/2 NS 1000ml IV ONE (16:37)
[2017-08-26] MEDS ORDERED: Tubing IV Secondary IV ONE (16:37)
[2017-08-26 20:00] VITALS: BP 118/58
--- NOTE | 2017-08-26 22:15 | Progress Note ---
DATE: 08/26/2017 NOTE: "POOR AUDIO" SUBJECTIVE: This is a 56-year-old male patient with sepsis and empyema. The patient also has number of medical illnesses anxiety worsened by the stress of his medical illness, mood lability, and confusion, that is why daily psychiatric consultation. . The patient is still confused, disorganized, anxiety worsened by stress of his medical illness. MENTAL STATUS EXAMINATION: This is a 56-year-old male. Appearance is disheveled. Attitude, irritable and agitated. Affect guarded and restricted. Intellect poor. Mood is depressed and anxious. Motor activity, psychomotor agitation. Attention span is poor. Orientation x2. Speech is low volume and slurred. Thought process, disorganized. Thought content, auditory hallucinations and paranoid delusions. Insight and judgment is poor. DIAGNOSIS: Major depression with psychotic features. PLAN: Continue him on psychotropic medications anxiety, depression, and mood lability. Also, 18 to 20 minutes of cognitive behavioral therapy is provided which also involved helping the patient to recognize his automatic negative thoughts, and turn it into more positive thinking. Cognitive behavioral therapy for 18 to 20 minutes. Chart was reviewed and discussed with staff. Seen and assessed in his room. Gudelia Villa M.D. DR: IRLANDA JOB#: [id number] CC: KRISH
--- NOTE | 2017-08-26 22:45 | Consultation ---
DATE OF CONSULTATION: 08/26/2017 PAIN MANAGEMENT CONSULTATION CONSULTING PHYSICIAN: Timbo Stevens M.D. REFERRING PHYSICIAN: Chemo Dietrich D.O. PHYSICIAN CONSUMER MARKETING SPECIALIST: Leslie Rodriguez CHIEF COMPLAINT: Left chest wall pain and back pain. HISTORY OF PRESENT ILLNESS: This is a 56-year-old male, who is being seen on the medical/surgical floor of [facility] for initial comprehensive pain management consultation. The patient was status post left emphysema with VATS and left the hospital AMA and came back into the hospital with increased chest pain and back pain, started on morphine 1 mg IV every four hours as needed for severe pain with minimal pain relief. We were consulted so that the patient would have adequate pain control while here in the hospital. PAST MEDICAL HISTORY: Hepatitis C, HIV, COPD, hypertension, empyema, and thoracostomy tube placement. PAST SURGICAL HISTORY: Right knee surgery and thoracostomy tube placement. ALLERGIES: No known drug allergies. MEDICATIONS: [place]. SOCIAL HISTORY: He is a smoker. Alcohol occasionally. Denies history of IV drug abuse. REVIEW OF SYSTEMS: Denies rash, fever, chills, sweating, dizziness, drowsiness, blurred vision, sore throat, or change in weight. No nausea, vomiting, diarrhea, or blood in the stool or urine. No bowel or bladder incontinence. No dysuria. He is complaining of left chest wall pain and back pain. PHYSICAL EXAMINATION: GENERAL: Alert, awake, and oriented. VITAL SIGNS: heart rate is 96, respirations 20, and temperature 98.6 degrees Fahrenheit. HEENT: PERRLA. NECK: Range of motion is full in all directions. No tenderness to paracervical muscles. No adenopathy. LUNGS: Decreased breath sounds bilaterally. HEART: Regular. ABDOMEN: Benign. BACK: Range of motion is decreased in flexion and extension with tenderness to paraspinal muscles, trapezii and rhomboid muscles. EXTREMITIES: Upper extremity range of motion is full in all directions. No cyanosis. No clubbing. No edema. Sensory is intact. Reflexes are not obtainable. No adenopathy. Lower extremity range of motion is decreased due to the patient's pain and condition. No cyanosis. No clubbing. No edema. Sensory is intact. Reflexes are not obtainable. No adenopathy. ASSESSMENT AND PLAN: This is a 56-year-old male with intercostal neuropathy, lumbar spondylosis, and peripheral neuropathy. The patient will be discontinued off the morphine and started on [place] 10/325 mg one tablet every four hours as needed for severe pain. Continue on the Neurontin 300 mg tablet three times a day. The patient will be going for an x-ray of the lumbar spine to rule out further pathology in the lower back. The patient was discussed with Dr. Stevens and Dr. Stevens concurred. We will follow the patient. Thank you very much for the courtesy of this consultation. Timbo Stevens M.D. NIESHA Rodriguez DR: NEYDA JOB#: [id number] CC: KRISH
[2017-08-27] VITALS: BP 125/75
[2017-08-27] MEDS: Oxacillin 2 GM in NS 110 ML IVPB SCH ×6 (00:48→21:28)
[2017-08-27] MEDS: HYDROcodone/Acetamin 10/325 tab ORAL PRN ×4 (02:02→15:38)
[2017-08-27 04:00] VITALS: BP 113/67
[2017-08-27 08:00] VITALS: BP 124/58
--- NOTE | 2017-08-27 08:10 | General Progress Note ---
Assessment/Plan Assessment/Plan (1) Left sided wall chest pain (2) Lung effusion possible empyema (3) S/p VATS (4) Intercostal Neuropathy (5) Lumbar Spondylosis MRI of lumbar spine results pending We will continued [place] and Neurontin. Will restart Morphine 4mg IV Q4H PRN severe breakthrough pain. D/w Dr. Stevens and he concurred. Subjective Date patient seen: Aug 27, 2017 Time patient seen: 06:45 - am Allergies: Coded Allergies: No Known Allergies (Unverified , 08/06/17) Subjective REVIEW OF SYSTEMS: Denies rash, fever, chills, sweating, dizziness, drowsiness, blurred vision, sore throat, or change in weight. No nausea, vomiting, diarrhea, or blood in the stool or urine. He is complaining of left chest wall pain and back pain. SUBJECTIVE: Patient has been c/o severe pain and is using the [place] as needed with minimal pain relief. Will be having MRI of Lumbar spine later today due to severity of his pain. Objective Last 24 Hour Vital Signs Date Time Temp Pulse Resp B/P (MAP) Pulse Ox O2 Delivery O2 Flow Rate FiO2 08/27/17 04:00 97.8 79 20 113/67 (82) 93 97.8 08/27/17 02:02 98.0 08/27/17 00:00 98.0 88 20 125/75 (92) 93 98.0 08/26/17 21:00 Room Air 08/26/17 20:31 90 20 Room Air 08/26/17 20:00 99.1 70 20 118/58 (78) 92 99.1 08/26/17 16:00 98.7 91 20 100/64 (76) 90 98.7 08/26/17 12:00 98.2 86 20 112/64 (80) 90 98.2 08/26/17 09:00 Room Air Intake and Output 08/26/17 08/27/17 19:00 07:00 Intake Total 650 ml 1980 ml Output Total 600 ml 1000 ml Balance 50 ml 980 ml Intake Oral 600 ml 1200 ml IV Total 50 ml 780 ml Output Urine Total 600 ml 1000 ml Height (Feet): 5 Height (Inches): 7.00 Weight (Pounds): 150 Objective GENERAL: Alert, awake, and oriented. LUNGS: Decreased breath sounds bilaterally. HEART: S1 S2 Regular. ABDOMEN: Benign. EXTREMITIES: No cyanosis. No clubbing. No edema. NEURO: No changes. Mark Rausch Aug 27, 2017 08:10
[2017-08-27 08:27] LABS: BASOPHILS % (AUTO) 0.7 % (0.0-2.0); EOSINOPHILS % (AUTO) 1.6 % (0.0-3.0); HEMATOCRIT 25.8 % (42.0-52.0); HEMOGLOBIN 8.8 G/DL (14.2-18.0); LYMPHOCYTES % (AUTO) 12.6 % (20.0-45.0); MEAN CORPUSCULAR VOLUME 87 FL (80-99); MONOCYTES % (AUTO) 8.6 % (1.0-10.0); NEUTROPHILS % (AUTO) 76.6 % (45.0-75.0); PLATELET COUNT 262 K/UL (150-450); RED BLOOD COUNT 2.98 M/UL (4.70-6.10); WHITE BLOOD COUNT 5.5 K/UL (4.8-10.8)
[2017-08-27] MEDS: DULoxetine 30mg cap ORAL SCH (09:12)
[2017-08-27 09:13] LABS: ANION GAP 8 mmol/L (5-15); BLOOD UREA NITROGEN 7 mg/dL (7-18); CALCIUM 8.3 MG/DL (8.5-10.1); CARBON DIOXIDE 27 MMOL/L (21-32); CHLORIDE 96 MMOL/L (98-107); CREATININE 0.7 MG/DL (0.55-1.30); POTASSIUM 3.5 MMOL/L (3.5-5.1); SODIUM 131 MMOL/L (136-145)
[2017-08-27] MEDS: Heparin 5000 units/ml inj SUBQ SCH ×2 (09:15→21:33)
--- NOTE | 2017-08-27 11:04 | General Progress Note ---
Assessment/Plan Problem List: (1) Chronic pain ICD Codes: G89.29 - Other chronic pain SNOMED: 51524569 (2) Hypokalemia ICD Codes: E87.6 - Hypokalemia SNOMED: 87634275 (3) HIV (human immunodeficiency virus infection) ICD Codes: B20 - Human immunodeficiency virus [HIV] disease SNOMED: 61718741 (4) Sepsis ICD Codes: A41.9 - Sepsis, unspecified organism SNOMED: 92542493 Qualifiers: Qualified Codes: A41.9 - Sepsis, unspecified organism (5) Empyema ICD Codes: J86.9 - Pyothorax without fistula SNOMED: 959141636 (6) Drug abuse and dependence ICD Codes: F19.20 - Other psychoactive substance dependence, uncomplicated SNOMED: 3157603 Status: stable, progressing Assessment/Plan ot pt diet abx neph f/u cbc bmp am ltach eval Subjective Constitutional: Reports: weakness Allergies: Coded Allergies: No Known Allergies (Unverified , 08/06/17) All Systems: reviewed and negative except above Subjective sleepy calm Objective Last 24 Hour Vital Signs Date Time Temp Pulse Resp B/P (MAP) Pulse Ox O2 Delivery O2 Flow Rate FiO2 08/27/17 09:45 83 18 Room Air 08/27/17 09:00 Room Air 08/27/17 08:00 98.0 86 20 124/58 (80) 94 98.0 08/27/17 04:00 97.8 79 20 113/67 (82) 93 97.8 08/27/17 02:02 98.0 08/27/17 00:00 98.0 88 20 125/75 (92) 93 98.0 08/26/17 21:00 Room Air 08/26/17 20:31 90 20 Room Air 08/26/17 20:00 99.1 70 20 118/58 (78) 92 99.1 08/26/17 16:00 98.7 91 20 100/64 (76) 90 98.7 08/26/17 12:00 98.2 86 20 112/64 (80) 90 98.2 Intake and Output 08/26/17 08/27/17 19:00 07:00 Intake Total 650 ml 1980 ml Output Total 600 ml 1000 ml Balance 50 ml 980 ml Intake Oral 600 ml 1200 ml IV Total 50 ml 780 ml Output Urine Total 600 ml 1000 ml Laboratory Tests 08/27/17 07:43: White Blood Count 5.5, Red Blood Count 2.98L, Hemoglobin 8.8L, Hematocrit 25.8L , Mean Corpuscular Volume 87, Mean Corpuscular Hemoglobin 29.6, Mean Corpuscular Hemoglobin Concent 34.2, Red Cell Distribution Width 12.0, Platelet Count 262, Mean Platelet Volume 5.5L, Neutrophils (%) (Auto) 76.6H, Lymphocytes (%) (Auto) 12.6L, Monocytes (%) (Auto) 8.6, Eosinophils (%) (Auto) 1.6, Basophils (%) (Auto) 0.7, Sodium Level 131L, Potassium Level 3.5, Chloride Level 96L, Carbon Dioxide Level 27, Anion Gap 8, Blood Urea Nitrogen 7, Creatinine 0.7, Estimat Glomerular Filtration Rate > 60, Glucose Level 145H, Calcium Level 8.3L Height (Feet): 5 Height (Inches): 7.00 Weight (Pounds): 150 General Appearance: lethargic EENT: normal ENT inspection Neck: normal alignment Cardiovascular: normal peripheral pulses, normal rate, regular rhythm Respiratory/Chest: chest wall non-tender, decreased breath sounds Abdomen: normal bowel sounds, non tender, soft Extremities: normal inspection Edema: no edema noted Arm (L), no edema noted Arm (R), no edema noted Leg (L), no edema noted Leg (R), no edema noted Pedal (L), no edema noted Pedal (R), no edema noted Generalized Neurologic: responsive, motor weakness Skin: normal pigmentation, warm/dry Chemo Dietrich DO Aug 27, 2017 11:04
[2017-08-27 12:00] VITALS: BP 121/68
--- NOTE | 2017-08-27 12:02 | Consultation ---
History of Present Illness General Date patient seen: Aug 27, 2017 Chief Complaint: Back Pain-No Injury Present Illness HPI 56-year-old male who was recently admitted for sepsis and bacteremia from [facility] secondary to empyema of his left lung. He had thoracoscopy and chest, which eventually removed and pt signed AMA afterwards. He called 911 because of severe weakness and pain. He was found in the bathtub and unable to get up. He 's been having fever and chills. Pain is 10 out of 10. No nausea no vomiting. He had leukocytosis and low grade fever on presentation and is admitted for further work/up. Allergies: Coded Allergies: No Known Allergies (Unverified , 08/06/17) Medication History Scheduled PRN Hydrocodone Bit/Acetaminophen 5-325* ([place] 5-325*), 1 TAB ORAL Q4H PRN for For Pain, (Reported) Patient History Healthcare decision maker Resuscitation status Full Code Advanced Directive on File Past Medical/Surgical History Past Medical/Surgical History: (1) Empyema (2) HIV (human immunodeficiency virus infection) (3) Hepatitis C (4) Pleural effusion Review of Systems All Other Systems: negative except mentioned in HPI Physical Exam General Appearance: WD/WN, alert Lines, tubes and drains: peripheral HEENT: normocephalic, atraumatic Neck: non-tender, normal alignment Respiratory/Chest: chest wall non-tender, lungs clear Breasts: no masses Cardiovascular/Chest: normal rate, regular rhythm Abdomen: normal bowel sounds, soft Genitourinary/Rectal: normal genital exam, normal rectal exam Extremities: normal range of motion, normal inspection Skin Exam: normal pigmentation Last 24 Hour Vital Signs Date Time Temp Pulse Resp B/P (MAP) Pulse Ox O2 Delivery O2 Flow Rate FiO2 08/27/17 11:45 98.0 08/27/17 09:45 83 18 Room Air 08/27/17 09:00 Room Air 08/27/17 08:00 98.0 86 20 124/58 (80) 94 98.0 08/27/17 04:00 97.8 79 20 113/67 (82) 93 97.8 08/27/17 02:02 98.0 08/27/17 00:00 98.0 88 20 125/75 (92) 93 98.0 08/26/17 21:00 Room Air 08/26/17 20:31 90 20 Room Air 08/26/17 20:00 99.1 70 20 118/58 (78) 92 99.1 08/26/17 16:00 98.7 91 20 100/64 (76) 90 98.7 08/26/17 12:00 98.2 86 20 112/64 (80) 90 98.2 Intake and Output 08/26/17 08/27/17 19:00 07:00 Intake Total 650 ml 1980 ml Output Total 600 ml 1000 ml Balance 50 ml 980 ml Intake Oral 600 ml 1200 ml IV Total 50 ml 780 ml Output Urine Total 600 ml 1000 ml Laboratory Tests Test 08/27/17 07:43 White Blood Count 5.5 K/UL (4.8-10.8) Red Blood Count 2.98 M/UL (4.70-6.10) L Hemoglobin 8.8 G/DL (14.2-18.0) L Hematocrit 25.8 % (42.0-52.0) L Mean Corpuscular Volume 87 FL (80-99) Mean Corpuscular Hemoglobin 29.6 PG (27.0-31.0) Mean Corpuscular Hemoglobin Concent 34.2 G/DL (32.0-36.0) Red Cell Distribution Width 12.0 % (11.6-14.8) Platelet Count 262 K/UL (150-450) Mean Platelet Volume 5.5 FL (6.5-10.1) L Neutrophils (%) (Auto) 76.6 % (45.0-75.0) H Lymphocytes (%) (Auto) 12.6 % (20.0-45.0) L Monocytes (%) (Auto) 8.6 % (1.0-10.0) Eosinophils (%) (Auto) 1.6 % (0.0-3.0) Basophils (%) (Auto) 0.7 % (0.0-2.0) Sodium Level 131 MMOL/L (136-145) L Potassium Level 3.5 MMOL/L (3.5-5.1) Chloride Level 96 MMOL/L (98-107) L Carbon Dioxide Level 27 MMOL/L (21-32) Anion Gap 8 mmol/L (5-15) Blood Urea Nitrogen 7 mg/dL (7-18) Creatinine 0.7 MG/DL (0.55-1.30) Estimat Glomerular Filtration Rate > 60 mL/min (>60) Glucose Level 145 MG/DL (74-106) H Calcium Level 8.3 MG/DL (8.5-10.1) L Height (Feet): 5 Height (Inches): 7.00 Weight (Pounds): 150 Medications Current Medications Medications (Trade) Dose Ordered Sig/Veronica Route PRN Reason Start Time Stop Time Status Last Admin Dose Admin Acetaminophen (Tylenol) 650 mg Q4H PRN ORAL FEVER 08/25/17 08:15 09/24/17 08:14 Acetaminophen/ Hydrocodone Bitart ([place] 10/325) 1 tab Q4H PRN ORAL severe pain 08/26/17 12:14 09/02/17 12:13 08/27/17 11:45 Albuterol/ Ipratropium (Albuterol/ Ipratropium) 3 ml EVERY 4 HOURS PRN HHN Shortness of Breath 08/25/17 08:15 08/30/17 08:14 08/26/17 02:15 Dextrose (Dextrose 50%) 25 ml STAT PRN IV Hypoglycemia 08/25/17 08:15 09/24/17 08:14 Dextrose (Dextrose 50%) 50 ml STAT PRN IV Hypoglycemia 08/25/17 08:30 09/24/17 08:29 Duloxetine HCl (Cymbalta) 30 mg DAILY ORAL 08/25/17 09:00 09/24/17 08:59 08/27/17 09:12 Gabapentin (Neurontin) 300 mg THREE TIMES A DAY ORAL 08/25/17 09:00 09/24/17 08:59 08/27/17 09:12 Gadobutrol (Gadavist) 7.5 mmol NOW PRN IV Radiology Procedure 08/25/17 17:00 08/29/17 16:55 Heparin Sodium (Porcine) (Heparin 5000 units/ml) 5,000 units EVERY 12 HOURS SUBQ 08/25/17 09:00 09/24/17 08:59 08/27/17 09:15 Iopamidol (Isovue-300 100ml) 100 ml NOW PRN INJ Radiology Procedure 08/25/17 14:15 08/27/17 14:04 Lorazepam (Ativan 2mg/ml 1ml) 2 mg EVERY 2 HOURS PRN IV For Anxiety 08/25/17 08:30 09/01/17 08:14 Lorazepam (Ativan) 1 mg Q6H PRN ORAL For Anxiety 08/25/17 04:30 09/01/17 04:29 08/25/17 20:50 Ondansetron HCl (Zofran) 4 mg Q6H PRN IVP Nausea & Vomiting 08/25/17 08:15 09/24/17 08:14 Oxacillin Sodium 2 gm/Sodium Chloride 110 ml @ 220 mls/hr Q4HR IVPB 08/25/17 21:00 09/01/17 20:59 08/27/17 09:13 Polyethylene Glycol (Miralax) 17 gm DAILYPRN PRN ORAL Constipation 08/25/17 08:15 09/24/17 08:14 Sodium Chloride 1,000 ml @ 50 mls/hr Q20H IV 08/26/17 13:45 09/25/17 13:44 08/27/17 09:13 Assessment/Plan Problem List: (1) Sepsis ICD Codes: A41.9 - Sepsis, unspecified organism SNOMED: 46974417 Qualifiers: Qualified Codes: A41.9 - Sepsis, unspecified organism (2) Pleural effusion ICD Codes: J90 - Pleural effusion, not elsewhere classified SNOMED: 33098245 (3) COPD (chronic obstructive pulmonary disease) ICD Codes: J44.9 - Chronic obstructive pulmonary disease, unspecified SNOMED: 34362200 (4) HIV (human immunodeficiency virus infection) ICD Codes: B20 - Human immunodeficiency virus [HIV] disease SNOMED: 79583526 (5) Hepatitis C ICD Codes: B19.20 - Unspecified viral hepatitis C without hepatic coma SNOMED: 57044822 (6) Hypoalbuminemia ICD Codes: E88.09 - Other disorders of plasma-protein metabolism, not elsewhere classified SNOMED: 551832540 Assessment/Plan wilson cultures might need thoracentesis again continue abx f/u wbc and temperature daily respiratory treatment titrate fio2 to sat of 92% Sally Cox MD Aug 27, 2017 12:02
--- NOTE | 2017-08-27 12:05 | Infectious Diseases Prog Note ---
Assessment/Plan Assessment/Plan ASSESSMENT: 1. The patient is a 56-year-old male with multiple medical problems, who has recent empyema/bacteremia due to methicillin-sensitive Staphylococcus aureus ( Signed off AMA on 08/18/17 and had incomplete treatment; only 10 day of 42) -CT chest 08/25: Increased size of loculated right pleural effusion. Small air in the pleural space. Smaller residual left loculated pleural fluid with small air. Small to moderate fluid collection now in the left fissure. Bilateral lower lobe atelectasis/consolidations and air space disease,similar. -s/p VATS, partial pleurectomy, decortication 08/14 -OR findings : Bronchoscopy: A minimal amount of mucopurulent secretion was lavaged and suctioned clear. No endobronchial lesions. -VATS: There were noted to be numerous adhesions tethering along to the surrounding chest wall. The disease appears to be localized in the left lower lobe as the left upper lobe was virtually spared. - OR cx MSSA -CT chest 08/10: Left pleural effusion. Scalloped appearance suggests loculation. Presence of gas bubbles suggest infection by gas-forming organism. Gas bubbles appear trapped within the fluid rather than floating nondependently , indicating the fluid may be highly viscous. - -08/07 Bcx 4/4 MSSA; 08/08 4/4+; 08/10 2/4 +; 08/11 2/4+; 08/13 Neg x4 2. Mild leukocytosis, resolved 3. Afebrile. 4. Probable endocarditis (NURA was not done). 5. Low back pain, rule out osteomyelitis. Polysubstance abuse- refers last IVDA was ~7 yrs ago -UDS (prior admission) +THC, cocaine and amphetamines HIV - non progressor- per patient, never on Tx and CD4 >500 and UD VL -07/2017 CD4 510 (39.2%), VL ND Hep C s/p tx (20 years ago) with sustained virologic response COPD/asthma tobacco abuse (stopped smoking 3d [employer]) PLAN: -. The patient is on oxacillin day # (the patient received 11 days of treatment prior to discharge). -08/25 SP IV Vanco and Cefepme #2 -08/18 SP IV Oxacillin #9 -08/10 SP Ceftriaxone d# 5 and IV Vancomycin #3 -08/06 SP Cefepime x1, Levaquin x1 -. Monitor CBC/CMP, temperatures -. Monitor cultures. - f/u MRI of the thoracolumbar to rule out diskitis/osteomyelitis/abscess. -. Based on the patient's clinical course and laboratories, we will do further recommendations. -Bcx x2 -CMP, ESR, CRP am -CT sx re-eval- may need further drainage/debridement -NURA to eval for endocarditis Discussed with RN. Subjective Allergies: Coded Allergies: No Known Allergies (Unverified , 08/06/17) Subjective afebrile no leukocytosis Objective Vital Signs Last 24 Hour Vital Signs Date Time Temp Pulse Resp B/P (MAP) Pulse Ox O2 Delivery O2 Flow Rate FiO2 08/27/17 11:45 98.0 08/27/17 09:45 83 18 Room Air 08/27/17 09:00 Room Air 08/27/17 08:00 98.0 86 20 124/58 (80) 94 98.0 08/27/17 04:00 97.8 79 20 113/67 (82) 93 97.8 08/27/17 02:02 98.0 08/27/17 00:00 98.0 88 20 125/75 (92) 93 98.0 08/26/17 21:00 Room Air 08/26/17 20:31 90 20 Room Air 08/26/17 20:00 99.1 70 20 118/58 (78) 92 99.1 08/26/17 16:00 98.7 91 20 100/64 (76) 90 98.7 08/26/17 12:00 98.2 86 20 112/64 (80) 90 98.2 Height (Feet): 5 Height (Inches): 7.00 Weight (Pounds): 150 Objective HEENT: No pale conjunctivae. No icterus. NECK: No lymphadenopathy. CHEST: Clear. Incision site is healing. HEART: S1 and S2. ABDOMEN: Soft and nontender. BACK: The patient has tenderness in the lower thoracic and lumbar area. EXTREMITIES: No cyanosis. NEUROLOGIC: Awake and alert. Microbiology Date/Time Source Procedure Growth Status 08/25/17 18:00 Sputum Gram Stain - Final Complete 08/25/17 18:00 Sputum Culture - Final Negra Albicans Usual Upper Respiratory Madhavi Complete 08/25/17 03:00 Nasal Nares MRSA Culture - Final NO METHICILLIN RESISTANT STAPH AUREUS... Complete 08/25/17 06:00 Stool Clostridium difficile Toxin Assay - Final Complete 08/25/17 03:00 Rectum - Final NO CARBAPENEM-RESISTANT ENTEROBACTERI... Complete 08/25/17 03:00 Rectum VRE Culture - Final Enterococcus Faecium - Vre Complete Laboratory Tests Test 08/27/17 07:43 White Blood Count 5.5 K/UL (4.8-10.8) Red Blood Count 2.98 M/UL (4.70-6.10) L Hemoglobin 8.8 G/DL (14.2-18.0) L Hematocrit 25.8 % (42.0-52.0) L Mean Corpuscular Volume 87 FL (80-99) Mean Corpuscular Hemoglobin 29.6 PG (27.0-31.0) Mean Corpuscular Hemoglobin Concent 34.2 G/DL (32.0-36.0) Red Cell Distribution Width 12.0 % (11.6-14.8) Platelet Count 262 K/UL (150-450) Mean Platelet Volume 5.5 FL (6.5-10.1) L Neutrophils (%) (Auto) 76.6 % (45.0-75.0) H Lymphocytes (%) (Auto) 12.6 % (20.0-45.0) L Monocytes (%) (Auto) 8.6 % (1.0-10.0) Eosinophils (%) (Auto) 1.6 % (0.0-3.0) Basophils (%) (Auto) 0.7 % (0.0-2.0) Sodium Level 131 MMOL/L (136-145) L Potassium Level 3.5 MMOL/L (3.5-5.1) Chloride Level 96 MMOL/L (98-107) L Carbon Dioxide Level 27 MMOL/L (21-32) Anion Gap 8 mmol/L (5-15) Blood Urea Nitrogen 7 mg/dL (7-18) Creatinine 0.7 MG/DL (0.55-1.30) Estimat Glomerular Filtration Rate > 60 mL/min (>60) Glucose Level 145 MG/DL (74-106) H Calcium Level 8.3 MG/DL (8.5-10.1) L Current Medications Medications (Trade) Dose Ordered Sig/Veronica Route PRN Reason Start Time Stop Time Status Last Admin Dose Admin Acetaminophen (Tylenol) 650 mg Q4H PRN ORAL FEVER 08/25/17 08:15 09/24/17 08:14 Acetaminophen/ Hydrocodone Bitart ([place] 10/325) 1 tab Q4H PRN ORAL severe pain 08/26/17 12:14 09/02/17 12:13 08/27/17 11:45 Albuterol/ Ipratropium (Albuterol/ Ipratropium) 3 ml EVERY 4 HOURS PRN HHN Shortness of Breath 08/25/17 08:15 08/30/17 08:14 08/26/17 02:15 Dextrose (Dextrose 50%) 25 ml STAT PRN IV Hypoglycemia 08/25/17 08:15 09/24/17 08:14 Dextrose (Dextrose 50%) 50 ml STAT PRN IV Hypoglycemia 08/25/17 08:30 09/24/17 08:29 Duloxetine HCl (Cymbalta) 30 mg DAILY ORAL 08/25/17 09:00 09/24/17 08:59 08/27/17 09:12 Gabapentin (Neurontin) 300 mg THREE TIMES A DAY ORAL 08/25/17 09:00 09/24/17 08:59 08/27/17 09:12 Gadobutrol (Gadavist) 7.5 mmol NOW PRN IV Radiology Procedure 08/25/17 17:00 08/29/17 16:55 Heparin Sodium (Porcine) (Heparin 5000 units/ml) 5,000 units EVERY 12 HOURS SUBQ 08/25/17 09:00 09/24/17 08:59 08/27/17 09:15 Iopamidol (Isovue-300 100ml) 100 ml NOW PRN INJ Radiology Procedure 08/25/17 14:15 08/27/17 14:04 Lorazepam (Ativan 2mg/ml 1ml) 2 mg EVERY 2 HOURS PRN IV For Anxiety 08/25/17 08:30 09/01/17 08:14 Lorazepam (Ativan) 1 mg Q6H PRN ORAL For Anxiety 08/25/17 04:30 09/01/17 04:29 08/25/17 20:50 Ondansetron HCl (Zofran) 4 mg Q6H PRN IVP Nausea & Vomiting 08/25/17 08:15 09/24/17 08:14 Oxacillin Sodium 2 gm/Sodium Chloride 110 ml @ 220 mls/hr Q4HR IVPB 08/25/17 21:00 09/01/17 20:59 08/27/17 09:13 Polyethylene Glycol (Miralax) 17 gm DAILYPRN PRN ORAL Constipation 08/25/17 08:15 09/24/17 08:14 Sodium Chloride 1,000 ml @ 50 mls/hr Q20H IV 08/26/17 13:45 09/25/17 13:44 08/27/17 09:13 Steph Crowder M.D. Aug 27, 2017 12:05
[2017-08-27 16:00] VITALS: BP 120/63
--- NOTE | 2017-08-27 16:03 | Diagnostic Imaging Report ---
Indication: Low back pain Technique: 3 views of the lumbar spine Comparison: None Findings:There is lumbar levoscoliosis. Bony alignment is otherwise normal. Vertebral body heights are preserved. There is degenerative disc narrowing at T11-12, L2-3, L4-5, and L5-S1. The remaining disc spaces are preserved. No acute fractures. No dislocations. There is considerable bowel gas Impression: Degenerative changes, as described No definite acute bony trauma
--- NOTE | 2017-08-27 16:05 | Diagnostic Imaging Report ---
Indication: Severe low back pain, history of MRSA Technique: Sagittal T1, sagittal T2 PROPELLER, sagittal STIR PROPELLER, axial T2 FRFSE, axial T1, pre and postcontrast sagittal and axial T1 images of the lumbar spine and lower thoracic spine were obtained. Comparison: none Findings: At T9 and T10, there is diffusely abnormal vertebral body marrow signal, which demonstrates decreased T1 and increased STIR signal. As well, there is enhancement of the vertebral body marrow on the postcontrast images. There is fluid within the disc, although the disc itself does not enhance. Beginning at the T9 level, there is an area of T2 fluid signal in the posterior lateral aspect of the spinal canal presumably within the epidural space. This extends cephalad and at the T7-8 level occupies the midline of the posterior spinal canal. This extends beyond the imaging volume this process narrows the spinal canal to 5 mm AP dimension at the T7-8 level. The same area demonstrates peripheral enhancement and central nonenhancement, and is consistent with an epidural abscess. This measures approximately 11 mm transverse diameter at its widest point, 8 mm AP dimension, and extends at least 5 cm craniocaudad, extending as mentioned above the on the edge of the imaging volume. There is extensive edema and contrast enhancement of the bilateral paraspinous soft tissues extending along side T9, T10, and the inferior aspect of T8. Bilateral loculated pleural effusions are demonstrated, corresponding to findings demonstrated on recent thoracic CT scan. There are also some areas of increased T2 signal and absent enhancement which could be extrapleural. The gas bubbles within the pleural space demonstrated on the prior CT are not clearly evident on MRI Below the T9-10 disc, there is no significant epidural abnormality, but combination of short pedicles, T10-11 disc bulge, and especially facet hypertrophy results in moderate narrowing of the spinal canal from the T9-10 disc to just below the T10-11 disc. At T10-11, there is degenerative disc narrowing as well. At T11-12, there is mild degenerative disc narrowing. No significant disc bulge or protrusion, spinal stenosis, or neural foraminal stenosis. At T12-L1 and L1-2, no significant disc bulge or protrusion, disc narrowing, spinal stenosis, or neural foraminal stenosis is evident. At L2-3, there is moderate to severe degenerative disc narrowing. There is considerable Modic type II marrow abnormality surrounding the disc, demonstrating high T1 and decreased circular signal. Combination of circumferential annular bulge, facet and ligamentum flavum hypertrophy results in at least moderate spinal stenosis at this level. There is mild to moderate narrowing of the right neural foramen. At L3-4, circumferential annular bulge and facet hypertrophy results in mild narrowing of the spinal canal. No significant neural foraminal stenosis. The disc is not narrowed At L4-5, there is moderate to severe degenerative disc narrowing and surrounding Modic type II marrow changes. There is circumferential annular bulge. This, in combination with facet and ligamentum flavum hypertrophy result in moderate to severe narrowing of the spinal canal. There is also moderate to severe bilateral neural foraminal stenosis. At L5-S1, there is mild degenerative disc narrowing. There is minimal circumferential annular bulge. There is mild to moderate narrowing of the bilateral neural foramina. Impression: Evidence of T9-10 discitis/osteomyelitis. Suspect related to previously described adjacent bilateral pleural empyemas Evidence of epidural abscess measuring at least 8 x 11 mm in diameter, and extending at least 5 cm craniocaudad, at and above the T9 level. This results in significant spinal stenosis. Note that it is incompletely included in the imaging volume, and the cephalad extent above mid T7 is unclear. Recommend thoracic MRI for further evaluation As mentioned above, evidence of bilateral empyemas, with bilateral loculated pleural fluid collections and extensive enhancement and edema of the adjacent soft tissue. Extensive multilevel degenerative changes elsewhere, as detailed on a level by level basis above Findings discussed by phone with Dr. Chemo Dietrich at 1550 on 08/27/2017
[2017-08-27] MEDS: Morphine Sulfate 4mg/ml Inj (IV USE ONLY) IVP PRN (17:22)
[2017-08-27 20:00] VITALS: BP 131/69
--- NOTE | 2017-08-27 20:11 | General Surgery Progress Note ---
General Surgery-Progress Note Subjective Additional Comments no acute events. still with back pain. Objective Last 24 Hour Vital Signs Date Time Temp Pulse Resp B/P (MAP) Pulse Ox O2 Delivery O2 Flow Rate FiO2 08/27/17 17:52 98.0 08/27/17 17:22 98.0 08/27/17 16:37 98.0 08/27/17 16:00 98.0 80 18 120/63 (82) 97 98.0 08/27/17 15:38 98.8 08/27/17 14:05 98.8 08/27/17 13:06 100.0 08/27/17 12:00 100.0 85 20 121/68 (85) 94 100.0 08/27/17 11:45 98.0 08/27/17 09:45 83 18 Room Air 08/27/17 09:00 Room Air 08/27/17 08:00 98.0 86 20 124/58 (80) 94 98.0 08/27/17 04:00 97.8 79 20 113/67 (82) 93 97.8 08/27/17 02:02 98.0 08/27/17 00:00 98.0 88 20 125/75 (92) 93 98.0 08/26/17 21:00 Room Air 08/26/17 20:31 90 20 Room Air I&O Intake and Output 08/26/17 08/27/17 19:00 07:00 Intake Total 650 ml 2030 ml Output Total 600 ml 1000 ml Balance 50 ml 1030 ml Intake Oral 600 ml 1200 ml IV Total 50 ml 830 ml Output Urine Total 600 ml 1000 ml Wound: clean Drains: none Cardiovascular: RSR Respiratory: clear Abdomen: soft, non-tender Extremities: no cyanosis Laboratory Tests Test 08/27/17 07:43 White Blood Count 5.5 K/UL (4.8-10.8) Red Blood Count 2.98 M/UL (4.70-6.10) L Hemoglobin 8.8 G/DL (14.2-18.0) L Hematocrit 25.8 % (42.0-52.0) L Mean Corpuscular Volume 87 FL (80-99) Mean Corpuscular Hemoglobin 29.6 PG (27.0-31.0) Mean Corpuscular Hemoglobin Concent 34.2 G/DL (32.0-36.0) Red Cell Distribution Width 12.0 % (11.6-14.8) Platelet Count 262 K/UL (150-450) Mean Platelet Volume 5.5 FL (6.5-10.1) L Neutrophils (%) (Auto) 76.6 % (45.0-75.0) H Lymphocytes (%) (Auto) 12.6 % (20.0-45.0) L Monocytes (%) (Auto) 8.6 % (1.0-10.0) Eosinophils (%) (Auto) 1.6 % (0.0-3.0) Basophils (%) (Auto) 0.7 % (0.0-2.0) Sodium Level 131 MMOL/L (136-145) L Potassium Level 3.5 MMOL/L (3.5-5.1) Chloride Level 96 MMOL/L (98-107) L Carbon Dioxide Level 27 MMOL/L (21-32) Anion Gap 8 mmol/L (5-15) Blood Urea Nitrogen 7 mg/dL (7-18) Creatinine 0.7 MG/DL (0.55-1.30) Estimat Glomerular Filtration Rate > 60 mL/min (>60) Glucose Level 145 MG/DL (74-106) H Calcium Level 8.3 MG/DL (8.5-10.1) L Plan Problems: (1) Empyema Assessment & Plan: s/p VATS. since chest tube removed. wounds healing. no signs of surgical site infection. does have pain on left ribs and likely healing from surgery patient signed out AMA last hospitalization prior to completion of therapy. Repeat chest CT now with larger right sided effusion possible empyema. recommend tap of right side for cultures / eval -patient declined and refused thoracentesis IV Abx discussed with Dr. Grimes. will follow with Brian Milligan Aug 27, 2017 20:11
[2017-08-28] VITALS: BP 132/78
[2017-08-28] MEDS: Oxacillin 2 GM in NS 110 ML IVPB SCH ×6 (01:17→21:02)
--- NOTE | 2017-08-28 02:15 | Consultation ---
DATE OF CONSULTATION: 08/27/2017 NOTE: POOR AUDIO PSYCHOTHERAPY CONSULTATION PROGRESS NOTE CONSULTING PHYSICIAN: Farooq Miller M.D. TREATING ATTENDING PHYSICIAN: Chemo Dietrich D.O. HISTORY OF PRESENT ILLNESS: This patient is a 56-year-old male patient from [place], [place]. The patient was admitted to the hospital for sepsis and the patient also has a history of HIV and hepatitis. The patient was referred for psychotherapeutic services to assess the patient's cognition. This clinically assessed this patient. The patient states that he has a longstanding history of depression and anxiety. He has been treated with psychotropic medications in the past and then he has seen psychiatrist in the past as the patient has been feeling very anxious due to his current medical condition. He states that he has been feeling a significant amount of depressed . He denies suicidal or homicidal thoughts of ideation. He denies any auditory or visual hallucinations at this time. The patient is cooperative with this clinician. PAST MEDICAL HISTORY: Includes a history of HIV, hepatitis C, empyema, bacteremia. ALLERGIES: The patient has no known drug allergies. SUBSTANCE ABUSE HISTORY: The patient denies history of alcohol use or illicit substance use. PSYCHIATRIC HISTORY: The patient has a history of depression and anxiety in the past. SOCIAL HISTORY: The patient is a 56-year-old male patient. He lives independently. Financially sustained through [facility]. MENTAL STATUS EXAMINATION: The patient is alert and oriented to person, time, and place. Mood is anxious. Affect is congruent. Thought process is slightly disorganized. He has fair attention and concentration. Fair insight, judgment, and impulse control. DIAGNOSIS: Major depressive disorder, moderate, recurrent without psychotic features, and rule out a generalized anxiety disorder. PLAN: This clinician assessed this patient and assessed the patient's mental status. address the patient's anxiety and depressed mood, feelings of helplessness. Provide him with coping skills and reality orientation. Continue with behavioral management. This clinician has reviewed the patient's chart. Discussed the treatment with treatment team. Farooq Miller PsyD. DR: NAYLA JOB#: [id number] CC:
[2017-08-28] MEDS: Morphine Sulfate 4mg/ml Inj (IV USE ONLY) IVP PRN (03:45)
--- NOTE | 2017-08-28 03:45 | Progress Note ---
DATE: 08/27/2017 SUBJECTIVE: The patient is a 56-year-old male patient, who is suffering from empyema. He also has a lot of other medical problems including hepatitis C and HIV. At this time, he is admitted for confusion and disorganized thought process worsened by the stress of his medical illness. That is why his attending has requested daily psychiatric consultation. MENTAL STATUS EXAMINATION: The patient is a 56-year-old male. Appearance is disheveled. Attitude is irritable and agitated. Affect is guarded and restricted. Intellect poor. Mood is depressed and anxious. Motor activity, psychomotor agitation. Attention span is poor. Orientation x2. Speech is pressured. Thought process, disorganized and illogical. Thought content, auditory hallucinations and paranoid delusions. Insight and judgement is poor. DIAGNOSIS: Major depressive disorder with psychotic features. PLAN: Continue treatment with psychotropic medications to prevent any further decline in his cognition. An 18 to 20 minutes of cognitive behavior therapy centered around negative thoughts . Chart was reviewed and discussed with staff. Seen and assessed at bedside. Gudelia Villa M.D. DR: RUTH ANN JOB#: [id number] CC:
[2017-08-28 04:00] VITALS: BP 130/76
[2017-08-28 06:45] LABS: BASOPHILS % (AUTO) 0.7 % (0.0-2.0); HEMOGLOBIN 8.7 G/DL (14.2-18.0); LYMPHOCYTES % (AUTO) 17.7 % (20.0-45.0); MEAN CORPUSCULAR VOLUME 86 FL (80-99); NEUTROPHILS % (AUTO) 72.6 % (45.0-75.0); PLATELET COUNT 283 K/UL (150-450); RED BLOOD COUNT 3.01 M/UL (4.70-6.10); RED CELL DISTRIBUTION WIDTH 12.4 % (11.6-14.8); WHITE BLOOD COUNT 5.5 K/UL (4.8-10.8)
[2017-08-28 07:59] LABS: ALANINE AMINOTRANSFERASE 80 U/L (12-78); ALBUMIN 1.8 G/DL (3.4-5.0); ALBUMIN/GLOBULIN RATIO 0.4 (1.0-2.7); ALKALINE PHOSPHATASE 104 U/L (46-116); ANION GAP 9 mmol/L (5-15); ASPARTATE AMINO TRANSFERASE 39 U/L (15-37); BILIRUBIN,TOTAL 0.2 MG/DL (0.2-1.0); BLOOD UREA NITROGEN 8 mg/dL (7-18); CALCIUM 7.9 MG/DL (8.5-10.1); CARBON DIOXIDE 25 MMOL/L (21-32); CHLORIDE 95 MMOL/L (98-107); CREATININE 0.6 MG/DL (0.55-1.30); POTASSIUM 4.1 MMOL/L (3.5-5.1); SODIUM 129 MMOL/L (136-145)
[2017-08-28 08:00] VITALS: BP 128/70
--- NOTE | 2017-08-28 08:34 | General Progress Note ---
Assessment/Plan Assessment/Plan (1) Left sided wall chest pain (2) Lung effusion possible empyema (3) S/p VATS (4) Intercostal Neuropathy (5) Lumbar Spondylosis (6) T9-10 discitis/osteomyelitis with epidural abscess We will continued Pearce and Neurontin. Will discontinue Morphine and will start Dilaudid 1mg IV Q4H PRN severe pain. Recommend Neurosurgical consultation as per die cast operator. Will order MRI of Cervical and Thoracic spine w/w/o contrast. D/w Dr. Stevens and he concurred. Subjective Date patient seen: Aug 28, 2017 Time patient seen: 07:00 - am Allergies: Coded Allergies: No Known Allergies (Unverified , 08/06/17) Subjective REVIEW OF SYSTEMS: Denies rash, fever, chills, sweating, dizziness, drowsiness, blurred vision, sore throat, or change in weight. No nausea, vomiting, diarrhea, or blood in the stool or urine. He is complaining of left chest wall pain and back pain. SUBJECTIVE: Patient continues to have severe pain with no relief on the Pearce or Dilaudid. MRI was reviewed and d/w patient needs to have MRI of thoracic spine as per radiologist. Will need neurosurgical consultation as per die cast operator. Objective Last 24 Hour Vital Signs Date Time Temp Pulse Resp B/P (MAP) Pulse Ox O2 Delivery O2 Flow Rate FiO2 08/28/17 04:00 99.3 86 18 130/76 (94) 92 99.3 08/28/17 03:45 98.4 08/28/17 00:00 98.4 63 18 132/78 (96) 97 98.4 08/27/17 21:00 Room Air 08/27/17 20:20 81 18 Room Air 21 08/27/17 20:00 99.3 82 18 131/69 (89) 93 99.3 08/27/17 17:52 98.0 08/27/17 17:22 98.0 08/27/17 16:37 98.0 08/27/17 16:00 98.0 80 18 120/63 (82) 97 98.0 08/27/17 15:38 98.8 08/27/17 14:05 98.8 08/27/17 13:06 100.0 08/27/17 12:00 100.0 85 20 121/68 (85) 94 100.0 08/27/17 11:45 98.0 08/27/17 09:45 83 18 Room Air 08/27/17 09:00 Room Air Intake and Output 08/27/17 08/28/17 19:00 07:00 Intake Total 1540 ml 920 ml Output Total 1800 ml 2600 ml Balance -260 ml -1680 ml Intake Oral 720 ml IV Total 820 ml 920 ml Output Urine Total 1800 ml 2600 ml # Bowel Movements 1 Laboratory Tests 08/28/17 05:45: White Blood Count 5.5, Red Blood Count 3.01L, Hemoglobin 8.7L, Hematocrit 26.0L , Mean Corpuscular Volume 86, Mean Corpuscular Hemoglobin 28.9, Mean Corpuscular Hemoglobin Concent 33.5, Red Cell Distribution Width 12.4, Platelet Count 283, Mean Platelet Volume 5.9L, Neutrophils (%) (Auto) 72.6, Lymphocytes ( %) (Auto) 17.7L, Monocytes (%) (Auto) 8.0, Eosinophils (%) (Auto) 1.0, Basophils (%) (Auto) 0.7, Erythrocyte Sedimentation Rate 126H, Sodium Level 129L , Potassium Level 4.1, Chloride Level 95L, Carbon Dioxide Level 25, Anion Gap 9 , Blood Urea Nitrogen 8, Creatinine 0.6, Estimat Glomerular Filtration Rate > 60 , Glucose Level 92, Calcium Level 7.9L, Total Bilirubin 0.2, Aspartate Amino Transf (AST/SGOT) 39H, Alanine Aminotransferase (ALT/SGPT) 80H, Alkaline Phosphatase 104, C-Reactive Protein, Quantitative 12.0H, Total Protein 6.7, Albumin 1.8L, Globulin 4.9, Albumin/Globulin Ratio 0.4L Height (Feet): 5 Height (Inches): 7.00 Weight (Pounds): 150 Objective GENERAL: Alert, awake, and oriented. LUNGS: Decreased breath sounds bilaterally. HEART: S1 S2 Regular. ABDOMEN: Benign. EXTREMITIES: No cyanosis. No clubbing. No edema. NEURO: No changes. Procedure: MRI L Spine w/wo Contrast Indication: Severe low back pain, history of MRSA Technique: Sagittal T1, sagittal T2 PROPELLER, sagittal STIR PROPELLER, axial T2 FRFSE, axial T1, pre and postcontrast sagittal and axial T1 images of the lumbar spine and lower thoracic spine were obtained. Comparison: none Findings: At T9 and T10, there is diffusely abnormal vertebral body marrow signal, which demonstrates decreased T1 and increased STIR signal. As well, there is enhancement of the vertebral body marrow on the postcontrast images. There is fluid within the disc, although the disc itself does not enhance. Beginning at the T9 level, there is an area of T2 fluid signal in the posterior lateral aspect of the spinal canal presumably within the epidural space. This extends cephalad and at the T7-8 level occupies the midline of the posterior spinal canal. This extends beyond the imaging volume this process narrows the spinal canal to 5 mm AP dimension at the T7-8 level. The same area demonstrates peripheral enhancement and central nonenhancement, and is consistent with an epidural abscess. This measures approximately 11 mm transverse diameter at its widest point, 8 mm AP dimension, and extends at least 5 cm craniocaudad, extending as mentioned above the on the edge of the imaging volume. There is extensive edema and contrast enhancement of the bilateral paraspinous soft tissues extending along side T9, T10, and the inferior aspect of T8. Bilateral loculated pleural effusions are demonstrated, corresponding to findings demonstrated on recent thoracic CT scan. There are also some areas of increased T2 signal and absent enhancement which could be extrapleural. The gas bubbles within the pleural space demonstrated on the prior CT are not clearly evident on MRI Below the T9-10 disc, there is no significant epidural abnormality, but combination of short pedicles, T10-11 disc bulge, and especially facet hypertrophy results in moderate narrowing of the spinal canal from the T9-10 disc to just below the T10 -11 disc. At T10-11, there is degenerative disc narrowing as well. At T11-12, there is mild degenerative disc narrowing. No significant disc bulge or protrusion, spinal stenosis, or neural foraminal stenosis. At T12-L1 and L1-2, no significant disc bulge or protrusion, disc narrowing, spinal stenosis, or neural foraminal stenosis is evident. At L2-3, there is moderate to severe degenerative disc narrowing. There is considerable Modic type II marrow abnormality surrounding the disc, demonstrating high T1 and decreased circular signal. Combination of circumferential annular bulge, facet and ligamentum flavum hypertrophy results in at least moderate spinal stenosis at this level. There is mild to moderate narrowing of the right neural foramen. At L3-4, circumferential annular bulge and facet hypertrophy results in mild narrowing of the spinal canal. No significant neural foraminal stenosis. The disc is not narrowed At L4-5, there is moderate to severe degenerative disc narrowing and surrounding Modic type II marrow changes. There is circumferential annular bulge. This, in combination with facet and ligamentum flavum hypertrophy result in moderate to severe narrowing of the spinal canal. There is also moderate to severe bilateral neural foraminal stenosis. At L5-S1, there is mild degenerative disc narrowing. There is minimal circumferential annular bulge. There is mild to moderate narrowing of the bilateral neural foramina. Impression: Evidence of T9-10 discitis/osteomyelitis. Suspect related to previously described adjacent bilateral pleural empyemas Evidence of epidural abscess measuring at least 8 x 11 mm in diameter, and extending at least 5 cm craniocaudad, at and above the T9 level. This results in significant spinal stenosis. Note that it is incompletely included in the imaging volume, and the cephalad extent above mid T7 is unclear. Recommend thoracic MRI for further evaluation As mentioned above, evidence of bilateral empyemas, with bilateral loculated pleural fluid collections and extensive enhancement and edema of the adjacent soft tissue. Extensive multilevel degenerative changes elsewhere, as detailed on a level by level basis above Mark Rausch Aug 28, 2017 08:34
[2017-08-28] MEDS: DULoxetine 30mg cap ORAL SCH (08:42)
[2017-08-28] MEDS ORDERED: Gadavist 7.5mMol/7.5ml vial IV PRN (08:45)
[2017-08-28] MEDS: Heparin 5000 units/ml inj SUBQ SCH ×2 (08:46→21:04)
[2017-08-28] MEDS: Miralax 17gm pkt ORAL PRN (09:04)
[2017-08-28] MEDS: HYDROmorphone 1mg/ml Carpuject IVP PRN ×3 (09:04→21:04)
--- NOTE | 2017-08-28 10:54 | General Surgery Progress Note ---
General Surgery-Progress Note Subjective Additional Comments MRI reviewed. still still with pain Objective Last 24 Hour Vital Signs Date Time Temp Pulse Resp B/P (MAP) Pulse Ox O2 Delivery O2 Flow Rate FiO2 08/28/17 09:34 99.3 08/28/17 09:04 99.3 08/28/17 09:00 Room Air 08/28/17 08:00 97.6 89 22 128/70 (89) 97 97.6 08/28/17 04:00 99.3 86 18 130/76 (94) 92 99.3 08/28/17 03:45 98.4 08/28/17 00:00 98.4 63 18 132/78 (96) 97 98.4 08/27/17 21:00 Room Air 08/27/17 20:20 81 18 Room Air 21 08/27/17 20:00 99.3 82 18 131/69 (89) 93 99.3 08/27/17 17:52 98.0 08/27/17 17:22 98.0 08/27/17 16:37 98.0 08/27/17 16:00 98.0 80 18 120/63 (82) 97 98.0 08/27/17 15:38 98.8 08/27/17 14:05 98.8 08/27/17 13:06 100.0 08/27/17 12:00 100.0 85 20 121/68 (85) 94 100.0 08/27/17 11:45 98.0 I&O Intake and Output 08/27/17 08/28/17 19:00 07:00 Intake Total 1540 ml 920 ml Output Total 1800 ml 2600 ml Balance -260 ml -1680 ml Intake Oral 720 ml IV Total 820 ml 920 ml Output Urine Total 1800 ml 2600 ml # Bowel Movements 1 Wound: clean, dry Drains: none Cardiovascular: RSR Respiratory: clear Abdomen: soft, present bowel sounds Extremities: no cyanosis Laboratory Tests Test 08/28/17 05:45 White Blood Count 5.5 K/UL (4.8-10.8) Red Blood Count 3.01 M/UL (4.70-6.10) L Hemoglobin 8.7 G/DL (14.2-18.0) L Hematocrit 26.0 % (42.0-52.0) L Mean Corpuscular Volume 86 FL (80-99) Mean Corpuscular Hemoglobin 28.9 PG (27.0-31.0) Mean Corpuscular Hemoglobin Concent 33.5 G/DL (32.0-36.0) Red Cell Distribution Width 12.4 % (11.6-14.8) Platelet Count 283 K/UL (150-450) Mean Platelet Volume 5.9 FL (6.5-10.1) L Neutrophils (%) (Auto) 72.6 % (45.0-75.0) Lymphocytes (%) (Auto) 17.7 % (20.0-45.0) L Monocytes (%) (Auto) 8.0 % (1.0-10.0) Eosinophils (%) (Auto) 1.0 % (0.0-3.0) Basophils (%) (Auto) 0.7 % (0.0-2.0) Erythrocyte Sedimentation Rate 126 MM/HR (0-20) H Sodium Level 129 MMOL/L (136-145) L Potassium Level 4.1 MMOL/L (3.5-5.1) Chloride Level 95 MMOL/L (98-107) L Carbon Dioxide Level 25 MMOL/L (21-32) Anion Gap 9 mmol/L (5-15) Blood Urea Nitrogen 8 mg/dL (7-18) Creatinine 0.6 MG/DL (0.55-1.30) Estimat Glomerular Filtration Rate > 60 mL/min (>60) Glucose Level 92 MG/DL (74-106) Calcium Level 7.9 MG/DL (8.5-10.1) L Total Bilirubin 0.2 MG/DL (0.2-1.0) Aspartate Amino Transf (AST/SGOT) 39 U/L (15-37) H Alanine Aminotransferase (ALT/SGPT) 80 U/L (12-78) H Alkaline Phosphatase 104 U/L (46-116) C-Reactive Protein, Quantitative 12.0 mg/dL (0.00-0.90) H Total Protein 6.7 G/DL (6.4-8.2) Albumin 1.8 G/DL (3.4-5.0) L Globulin 4.9 g/dL Albumin/Globulin Ratio 0.4 (1.0-2.7) L Plan Problems: (1) Empyema Assessment & Plan: s/p VATS. since chest tube removed. wounds healing. no signs of surgical site infection. does have pain on left ribs and likely healing from surgery patient signed out AMA last hospitalization prior to completion of therapy. Repeat chest CT now with larger right sided effusion possible empyema. MRI spine reviewed. spine abscess recommend tap of right side for cultures / eval -patient declined and refused thoracentesis needs spine surgery eval. possibly may need transfer to high level of care IV Abx will follow with Brian Milligan Aug 28, 2017 10:54
--- NOTE | 2017-08-28 10:55 | Pulmonology Progress Note ---
Assessment/Plan Problems: (1) Sepsis (2) Osteomyelitis (3) COPD (chronic obstructive pulmonary disease) (4) Hypoalbuminemia (5) Hepatitis C (6) HIV (human immunodeficiency virus infection) (7) Pleural effusion Assessment/Plan MRI of spine spine surgery evaluation iv abx check electrolytes symptomatic treatment Subjective ROS Limited/Unobtainable: No Constitutional: Reports: no symptoms HEENT: Repors: no symptoms Respiratory: Reports: no symptoms Allergies: Coded Allergies: No Known Allergies (Unverified , 08/06/17) Objective Last 24 Hour Vital Signs Date Time Temp Pulse Resp B/P (MAP) Pulse Ox O2 Delivery O2 Flow Rate FiO2 08/28/17 09:34 99.3 08/28/17 09:04 99.3 08/28/17 09:00 Room Air 08/28/17 08:00 97.6 89 22 128/70 (89) 97 97.6 08/28/17 04:00 99.3 86 18 130/76 (94) 92 99.3 08/28/17 03:45 98.4 08/28/17 00:00 98.4 63 18 132/78 (96) 97 98.4 08/27/17 21:00 Room Air 08/27/17 20:20 81 18 Room Air 21 08/27/17 20:00 99.3 82 18 131/69 (89) 93 99.3 08/27/17 17:52 98.0 08/27/17 17:22 98.0 08/27/17 16:37 98.0 08/27/17 16:00 98.0 80 18 120/63 (82) 97 98.0 08/27/17 15:38 98.8 08/27/17 14:05 98.8 08/27/17 13:06 100.0 08/27/17 12:00 100.0 85 20 121/68 (85) 94 100.0 08/27/17 11:45 98.0 Intake and Output 08/27/17 08/28/17 19:00 07:00 Intake Total 1540 ml 920 ml Output Total 1800 ml 2600 ml Balance -260 ml -1680 ml Intake Oral 720 ml IV Total 820 ml 920 ml Output Urine Total 1800 ml 2600 ml # Bowel Movements 1 General Appearance: WD/WN HEENT: normocephalic, atraumatic Respiratory/Chest: chest wall non-tender, lungs clear Cardiovascular: normal peripheral pulses, normal rate Abdomen: normal bowel sounds, soft, non tender Extremities: no cyanosis Skin: no rash, no lesions Lymphatic: no neck adenopathy Microbiology Date/Time Source Procedure Growth Status 08/25/17 18:00 Sputum Gram Stain - Final Complete 08/25/17 18:00 Sputum Culture - Final Negra Albicans Usual Upper Respiratory Madhavi Complete Laboratory Tests 08/28/17 05:45: White Blood Count 5.5, Red Blood Count 3.01L, Hemoglobin 8.7L, Hematocrit 26.0L , Mean Corpuscular Volume 86, Mean Corpuscular Hemoglobin 28.9, Mean Corpuscular Hemoglobin Concent 33.5, Red Cell Distribution Width 12.4, Platelet Count 283, Mean Platelet Volume 5.9L, Neutrophils (%) (Auto) 72.6, Lymphocytes ( %) (Auto) 17.7L, Monocytes (%) (Auto) 8.0, Eosinophils (%) (Auto) 1.0, Basophils (%) (Auto) 0.7, Erythrocyte Sedimentation Rate 126H, Sodium Level 129L , Potassium Level 4.1, Chloride Level 95L, Carbon Dioxide Level 25, Anion Gap 9 , Blood Urea Nitrogen 8, Creatinine 0.6, Estimat Glomerular Filtration Rate > 60 , Glucose Level 92, Calcium Level 7.9L, Total Bilirubin 0.2, Aspartate Amino Transf (AST/SGOT) 39H, Alanine Aminotransferase (ALT/SGPT) 80H, Alkaline Phosphatase 104, C-Reactive Protein, Quantitative 12.0H, Total Protein 6.7, Albumin 1.8L, Globulin 4.9, Albumin/Globulin Ratio 0.4L Current Medications Medications (Trade) Dose Ordered Sig/Veronica Route PRN Reason Start Time Stop Time Status Last Admin Dose Admin Acetaminophen (Tylenol) 650 mg Q4H PRN ORAL FEVER 08/25/17 08:15 09/24/17 08:14 08/27/17 13:06 Acetaminophen/ Hydrocodone Bitart (Sandwich 10/325) 1 tab Q6H PRN ORAL moderate pain 08/28/17 08:45 09/02/17 12:13 Albuterol/ Ipratropium (Albuterol/ Ipratropium) 3 ml EVERY 4 HOURS PRN HHN Shortness of Breath 08/25/17 08:15 7/19/18 08:14 08/26/17 02:15 Dextrose (Dextrose 50%) 25 ml STAT PRN IV Hypoglycemia 08/25/17 08:15 09/24/17 08:14 Dextrose (Dextrose 50%) 50 ml STAT PRN IV Hypoglycemia 08/25/17 08:30 09/24/17 08:29 Duloxetine HCl (Cymbalta) 30 mg DAILY ORAL 08/25/17 09:00 09/24/17 08:59 08/28/17 08:42 Gabapentin (Neurontin) 300 mg THREE TIMES A DAY ORAL 08/25/17 09:00 09/24/17 08:59 08/28/17 08:42 Gadobutrol (Gadavist) 7.5 mmol NOW PRN IV Radiology Procedure 08/25/17 17:00 08/29/17 16:55 Gadobutrol (Gadavist) 7.5 mmol NOW PRN IV Radiology Procedure 08/28/17 08:45 08/30/17 08:44 Heparin Sodium (Porcine) (Heparin 5000 units/ml) 5,000 units EVERY 12 HOURS SUBQ 08/25/17 09:00 09/24/17 08:59 08/28/17 08:46 Hydromorphone HCl (Dilaudid) 1 mg Q4H PRN IVP severe pain 08/28/17 08:45 09/04/17 08:44 08/28/17 09:04 Lorazepam (Ativan 2mg/ml 1ml) 2 mg EVERY 2 HOURS PRN IV For Anxiety 08/25/17 08:30 09/01/17 08:14 08/28/17 10:06 Lorazepam (Ativan) 1 mg Q6H PRN ORAL For Anxiety 08/25/17 04:30 09/01/17 04:29 08/25/17 20:50 Ondansetron HCl (Zofran) 4 mg Q6H PRN IVP Nausea & Vomiting 08/25/17 08:15 09/24/17 08:14 Oxacillin Sodium 2 gm/Sodium Chloride 110 ml @ 220 mls/hr Q4HR IVPB 08/25/17 21:00 09/01/17 20:59 08/28/17 08:43 Polyethylene Glycol (Miralax) 17 gm DAILYPRN PRN ORAL Constipation 08/25/17 08:15 8/13/18 08:14 08/28/17 09:04 Sodium Chloride 1,000 ml @ 50 mls/hr Q20H IV 08/26/17 13:45 09/25/17 13:44 08/27/17 17:16 Sally Cox MD Aug 28, 2017 10:55
--- NOTE | 2017-08-28 11:10 | Infectious Diseases Prog Note ---
Assessment/Plan Assessment/Plan ASSESSMENT: 1. The patient is a 56-year-old male with multiple medical problems, who has recent empyema/bacteremia due to methicillin-sensitive Staphylococcus aureus ( Signed off AMA on 08/18/17 and had incomplete treatment; only 10 day of 42) -CT chest 08/25: Increased size of loculated right pleural effusion. Small air in the pleural space. Smaller residual left loculated pleural fluid with small air. Small to moderate fluid collection now in the left fissure. Bilateral lower lobe atelectasis/consolidations and air space disease,similar. -s/p VATS, partial pleurectomy, decortication 08/14 -OR findings : Bronchoscopy: A minimal amount of mucopurulent secretion was lavaged and suctioned clear. No endobronchial lesions. -VATS: There were noted to be numerous adhesions tethering along to the surrounding chest wall. The disease appears to be localized in the left lower lobe as the left upper lobe was virtually spared. - OR cx MSSA -CT chest 08/10: Left pleural effusion. Scalloped appearance suggests loculation. Presence of gas bubbles suggest infection by gas-forming organism. Gas bubbles appear trapped within the fluid rather than floating nondependently , indicating the fluid may be highly viscous. - -08/07 Bcx 4/4 MSSA; 08/08 4/4+; 08/10 2/4 +; 08/11 2/4+; 08/13 Neg x4 -08/28 ESR 126 <86 (08/10), CRP 12 < 27 (08/09) 2. Mild leukocytosis, resolved 3. Afebrile. 4. Probable endocarditis (NURA was not done). 5. Thoracic Discitis/Osteomyelitis and epidural abscess -MRI Lumbar spine: Evidence of T9-10 discitis/osteomyelitis. Suspect related to previously described adjacent bilateral pleural empyemas. Evidence of epidural abscess measuring at least 8 x 11 mm in diameter, and extending at least 5 cm craniocaudad, at and above the T9 level. This results in significant spinal stenosis. Note that it is incompletely included in the imaging volume, and the cephalad extent above mid T7 is unclear. Recommend thoracic MRI for further evaluation. As mentioned above, evidence of bilateral empyemas, with bilateral loculated pleural fluid collections and extensive enhancement and edema of the adjacent soft tissue. Extensive multilevel degenerative changes elsewhere, as detailed on a level by level basis above Polysubstance abuse- refers last IVDA was ~7 yrs ago -UDS (prior admission) +THC, cocaine and amphetamines HIV - non progressor- per patient, never on Tx and CD4 >500 and UD VL -07/2017 CD4 510 (39.2%), VL ND Hep C s/p tx (20 years ago) with sustained virologic response COPD/asthma tobacco abuse (stopped smoking 3d [employer]) PLAN: -. The patient is on oxacillin day # (the patient received 11 days of treatment prior to discharge). -monitor LFTs -08/25 SP IV Vanco and Cefepme #2 -08/18 SP IV Oxacillin #9 -08/10 SP Ceftriaxone d# 5 and IV Vancomycin #3 -08/06 SP Cefepime x1, Levaquin x1 -. Monitor CBC/CMP, temperatures -. Monitor cultures (Bcx) - f/u MRI of thoracic and Cervical -will need transfer to tertiary hospital for neurosurgical evaluation for epidural abscess and thoracic discitis and OM -. Based on the patient's clinical course and laboratories, we will do further recommendations. -Needs also further chest drainage; currently refusing -will also need NURA to eval for endocarditis/valvular abscess Discussed with RN, Dr Hand, Dr Dietrich, Dr Cox and Dr Rosario. Left message for bilingual patient support caseworker. Subjective Allergies: Coded Allergies: No Known Allergies (Unverified , 08/06/17) Subjective Tm 100; afebrile in >12hrs no leukocytosis Bcx P MRI showed thoracic discitis/OM and epiduarl abscess patient refused R thoracentesis/chest tube Objective Vital Signs Last 24 Hour Vital Signs Date Time Temp Pulse Resp B/P (MAP) Pulse Ox O2 Delivery O2 Flow Rate FiO2 08/28/17 09:34 99.3 08/28/17 09:04 99.3 08/28/17 09:00 Room Air 08/28/17 08:00 97.6 89 22 128/70 (89) 97 97.6 08/28/17 04:00 99.3 86 18 130/76 (94) 92 99.3 08/28/17 03:45 98.4 08/28/17 00:00 98.4 63 18 132/78 (96) 97 98.4 08/27/17 21:00 Room Air 08/27/17 20:20 81 18 Room Air 21 08/27/17 20:00 99.3 82 18 131/69 (89) 93 99.3 08/27/17 17:52 98.0 08/27/17 17:22 98.0 08/27/17 16:37 98.0 08/27/17 16:00 98.0 80 18 120/63 (82) 97 98.0 08/27/17 15:38 98.8 08/27/17 14:05 98.8 08/27/17 13:06 100.0 08/27/17 12:00 100.0 85 20 121/68 (85) 94 100.0 08/27/17 11:45 98.0 Height (Feet): 5 Height (Inches): 7.00 Weight (Pounds): 150 Objective HEENT: No pale conjunctivae. No icterus. NECK: No lymphadenopathy. CHEST: Clear. Incision site is healing. HEART: S1 and S2. ABDOMEN: Soft and nontender. BACK: The patient has tenderness in the lower thoracic and lumbar area. EXTREMITIES: No cyanosis. NEUROLOGIC: Awake and alert. Microbiology Date/Time Source Procedure Growth Status 08/25/17 18:00 Sputum Gram Stain - Final Complete 08/25/17 18:00 Sputum Culture - Final Negra Albicans Usual Upper Respiratory Madhavi Complete Laboratory Tests Test 08/28/17 05:45 White Blood Count 5.5 K/UL (4.8-10.8) Red Blood Count 3.01 M/UL (4.70-6.10) L Hemoglobin 8.7 G/DL (14.2-18.0) L Hematocrit 26.0 % (42.0-52.0) L Mean Corpuscular Volume 86 FL (80-99) Mean Corpuscular Hemoglobin 28.9 PG (27.0-31.0) Mean Corpuscular Hemoglobin Concent 33.5 G/DL (32.0-36.0) Red Cell Distribution Width 12.4 % (11.6-14.8) Platelet Count 283 K/UL (150-450) Mean Platelet Volume 5.9 FL (6.5-10.1) L Neutrophils (%) (Auto) 72.6 % (45.0-75.0) Lymphocytes (%) (Auto) 17.7 % (20.0-45.0) L Monocytes (%) (Auto) 8.0 % (1.0-10.0) Eosinophils (%) (Auto) 1.0 % (0.0-3.0) Basophils (%) (Auto) 0.7 % (0.0-2.0) Erythrocyte Sedimentation Rate 126 MM/HR (0-20) H Sodium Level 129 MMOL/L (136-145) L Potassium Level 4.1 MMOL/L (3.5-5.1) Chloride Level 95 MMOL/L (98-107) L Carbon Dioxide Level 25 MMOL/L (21-32) Anion Gap 9 mmol/L (5-15) Blood Urea Nitrogen 8 mg/dL (7-18) Creatinine 0.6 MG/DL (0.55-1.30) Estimat Glomerular Filtration Rate > 60 mL/min (>60) Glucose Level 92 MG/DL (74-106) Calcium Level 7.9 MG/DL (8.5-10.1) L Total Bilirubin 0.2 MG/DL (0.2-1.0) Aspartate Amino Transf (AST/SGOT) 39 U/L (15-37) H Alanine Aminotransferase (ALT/SGPT) 80 U/L (12-78) H Alkaline Phosphatase 104 U/L (46-116) C-Reactive Protein, Quantitative 12.0 mg/dL (0.00-0.90) H Total Protein 6.7 G/DL (6.4-8.2) Albumin 1.8 G/DL (3.4-5.0) L Globulin 4.9 g/dL Albumin/Globulin Ratio 0.4 (1.0-2.7) L Current Medications Medications (Trade) Dose Ordered Sig/Veronica Route PRN Reason Start Time Stop Time Status Last Admin Dose Admin Acetaminophen (Tylenol) 650 mg Q4H PRN ORAL FEVER 08/25/17 08:15 09/24/17 08:14 08/27/17 13:06 Acetaminophen/ Hydrocodone Bitart ([place] 10/325) 1 tab Q6H PRN ORAL moderate pain 08/28/17 08:45 09/02/17 12:13 Albuterol/ Ipratropium (Albuterol/ Ipratropium) 3 ml EVERY 4 HOURS PRN HHN Shortness of Breath 08/25/17 08:15 08/30/17 08:14 08/26/17 02:15 Dextrose (Dextrose 50%) 25 ml STAT PRN IV Hypoglycemia 08/25/17 08:15 09/24/17 08:14 Dextrose (Dextrose 50%) 50 ml STAT PRN IV Hypoglycemia 08/25/17 08:30 09/24/17 08:29 Duloxetine HCl (Cymbalta) 30 mg DAILY ORAL 08/25/17 09:00 09/24/17 08:59 08/28/17 08:42 Gabapentin (Neurontin) 300 mg THREE TIMES A DAY ORAL 08/25/17 09:00 09/24/17 08:59 08/28/17 08:42 Gadobutrol (Gadavist) 7.5 mmol NOW PRN IV Radiology Procedure 08/25/17 17:00 08/29/17 16:55 Gadobutrol (Gadavist) 7.5 mmol NOW PRN IV Radiology Procedure 08/28/17 08:45 08/30/17 08:44 Heparin Sodium (Porcine) (Heparin 5000 units/ml) 5,000 units EVERY 12 HOURS SUBQ 08/25/17 09:00 09/24/17 08:59 08/28/17 08:46 Hydromorphone HCl (Dilaudid) 1 mg Q4H PRN IVP severe pain 08/28/17 08:45 09/04/17 08:44 08/28/17 09:04 Lorazepam (Ativan 2mg/ml 1ml) 2 mg EVERY 2 HOURS PRN IV For Anxiety 08/25/17 08:30 09/01/17 08:14 08/28/17 10:06 Lorazepam (Ativan) 1 mg Q6H PRN ORAL For Anxiety 08/25/17 04:30 09/01/17 04:29 08/25/17 20:50 Ondansetron HCl (Zofran) 4 mg Q6H PRN IVP Nausea & Vomiting 08/25/17 08:15 09/24/17 08:14 Oxacillin Sodium 2 gm/Sodium Chloride 110 ml @ 220 mls/hr Q4HR IVPB 08/25/17 21:00 09/01/17 20:59 08/28/17 08:43 Polyethylene Glycol (Miralax) 17 gm DAILYPRN PRN ORAL Constipation 08/25/17 08:15 09/24/17 08:14 08/28/17 09:04 Sodium Chloride 1,000 ml @ 50 mls/hr Q20H IV 08/26/17 13:45 09/25/17 13:44 08/27/17 17:16 Steph Crowder M.D. Aug 28, 2017 11:10
[2017-08-28] MEDS ORDERED: LORazepam Inj 2mg/ml 1ml IV ONE (11:45)
[2017-08-28] MEDS ORDERED: LORazepam Inj 2mg/ml 1ml IV SCH (11:45)
[2017-08-28 12:00] VITALS: BP 140/64
--- NOTE | 2017-08-28 14:49 | General Progress Note ---
Assessment/Plan Problem List: (1) Chronic pain ICD Codes: G89.29 - Other chronic pain SNOMED: 05243598 (2) Hypokalemia ICD Codes: E87.6 - Hypokalemia SNOMED: 90894217 (3) HIV (human immunodeficiency virus infection) ICD Codes: B20 - Human immunodeficiency virus [HIV] disease SNOMED: 64351640 (4) Sepsis ICD Codes: A41.9 - Sepsis, unspecified organism SNOMED: 02648315 Qualifiers: Qualified Codes: A41.9 - Sepsis, unspecified organism (5) Empyema ICD Codes: J86.9 - Pyothorax without fistula SNOMED: 771103775 (6) Drug abuse and dependence ICD Codes: F19.20 - Other psychoactive substance dependence, uncomplicated SNOMED: 9116732 (7) Epidural abscess ICD Codes: G06.2 - Extradural and subdural abscess, unspecified SNOMED: 42474090 Status: unchanged Assessment/Plan ot pt diet abx neph f/u cbc bmp am higher lwvel care prn Subjective Constitutional: Reports: weakness Allergies: Coded Allergies: No Known Allergies (Unverified , 08/06/17) All Systems: reviewed and negative except above Subjective sleepy calm Objective Last 24 Hour Vital Signs Date Time Temp Pulse Resp B/P (MAP) Pulse Ox O2 Delivery O2 Flow Rate FiO2 08/28/17 12:00 97.7 85 18 140/64 (89) 97 97.7 08/28/17 09:47 88 18 Room Air 21 08/28/17 09:34 99.3 08/28/17 09:04 99.3 08/28/17 09:00 Room Air 08/28/17 08:00 97.6 89 22 128/70 (89) 97 97.6 08/28/17 04:00 99.3 86 18 130/76 (94) 92 99.3 08/28/17 03:45 98.4 08/28/17 00:00 98.4 63 18 132/78 (96) 97 98.4 08/27/17 21:00 Room Air 08/27/17 20:20 81 18 Room Air 21 08/27/17 20:00 99.3 82 18 131/69 (89) 93 99.3 08/27/17 17:52 98.0 08/27/17 17:22 98.0 7/16/18 16:37 98.0 08/27/17 16:00 98.0 80 18 120/63 (82) 97 98.0 08/27/17 15:38 98.8 Intake and Output 08/27/17 08/28/17 19:00 07:00 Intake Total 1540 ml 920 ml Output Total 1800 ml 2600 ml Balance -260 ml -1680 ml Intake Oral 720 ml IV Total 820 ml 920 ml Output Urine Total 1800 ml 2600 ml # Bowel Movements 1 Laboratory Tests 08/28/17 05:45: White Blood Count 5.5, Red Blood Count 3.01L, Hemoglobin 8.7L, Hematocrit 26.0L , Mean Corpuscular Volume 86, Mean Corpuscular Hemoglobin 28.9, Mean Corpuscular Hemoglobin Concent 33.5, Red Cell Distribution Width 12.4, Platelet Count 283, Mean Platelet Volume 5.9L, Neutrophils (%) (Auto) 72.6, Lymphocytes ( %) (Auto) 17.7L, Monocytes (%) (Auto) 8.0, Eosinophils (%) (Auto) 1.0, Basophils (%) (Auto) 0.7, Erythrocyte Sedimentation Rate 126H, Sodium Level 129L , Potassium Level 4.1, Chloride Level 95L, Carbon Dioxide Level 25, Anion Gap 9 , Blood Urea Nitrogen 8, Creatinine 0.6, Estimat Glomerular Filtration Rate > 60 , Glucose Level 92, Calcium Level 7.9L, Total Bilirubin 0.2, Aspartate Amino Transf (AST/SGOT) 39H, Alanine Aminotransferase (ALT/SGPT) 80H, Alkaline Phosphatase 104, C-Reactive Protein, Quantitative 12.0H, Total Protein 6.7, Albumin 1.8L, Globulin 4.9, Albumin/Globulin Ratio 0.4L Height (Feet): 5 Height (Inches): 7.00 Weight (Pounds): 150 General Appearance: lethargic EENT: normal ENT inspection Neck: normal alignment Cardiovascular: normal peripheral pulses, normal rate, regular rhythm Respiratory/Chest: chest wall non-tender, lungs clear, normal breath sounds Abdomen: normal bowel sounds, non tender, soft Extremities: normal inspection Edema: no edema noted Arm (L), no edema noted Arm (R), no edema noted Leg (L), no edema noted Leg (R), no edema noted Pedal (L), no edema noted Pedal (R), no edema noted Generalized Neurologic: motor weakness Skin: normal pigmentation, warm/dry Chemo Dietrich DO Aug 28, 2017 14:49
[2017-08-28 16:00] VITALS: BP 130/64
--- NOTE | 2017-08-28 16:22 | Diagnostic Imaging Report ---
Indication: Back pain. Abscess Technique: MRI examination of the thoracic spine was performed in a 1.5 Kamille magnet. Sequences obtained include sagittal and axial T1 and T2 fast spin echo, and sagittal STIR. No gadolinium given. Comparison: MRI lumbar spine performed 08/27/2017, CT chest 08/26/2017 Findings: There is considerable motion degradation of image quality. There is a posterior intermediate to slightly T2 hyperintense epidural collection posterior to the spinal cord at T7-T10 suspicious for an epidural abscess. There is moderate compression of the spinal cord which is probably worse at about the T8 level. The thecal sac diameter has a residual AP dimension of about 3 to 4 mm. Difficult to ascertain whether there is cord edema given the poor quality of the study. There is evidence of spondylodiscitis at T9-10 characterized by fluid signal intensity within the intervertebral disc and adjacent bone marrow edema within the T9 and T10 vertebra. There are bilateral pleural effusions partially seen on this examination. The configuration suggests loculation of portions of the fluid in the pleural space. Empyema is certainly not excluded. Multilevel facet hypertrophy noted within the thoracic spine. Disc desiccation and narrowing present at multiple levels. IMPRESSION: Suspicion of cord compression T7-T10 secondary to a posterior epidural abscess versus mass. Abscess favored given suspicion of spondylodiscitis at T9-10 as well as bilateral pleural effusions and pneumonia (recent diagnosed on CT chest). Significantly limited study due to motion. Critical value communication. Findings will be conveyed to the referring physician Dr. Chemo Dietrich. Notification is pending callback.
[2017-08-28 20:00] VITALS: BP 128/68
--- NOTE | 2017-08-28 23:53 | Cardiology Progress Note ---
Assessment/Plan Assessment/Plan The patient is seen and examined, full consultation report will be provided shortly. Objective Last 24 Hour Vital Signs Date Time Temp Pulse Resp B/P (MAP) Pulse Ox O2 Delivery O2 Flow Rate FiO2 08/28/17 21:00 Room Air 08/28/17 20:02 91 20 Room Air 21 08/28/17 20:00 98.3 97 20 128/68 (88) 92 98.3 08/28/17 17:30 97.1 08/28/17 17:00 97.1 08/28/17 16:00 97.1 85 20 130/64 (86) 99 97.1 08/28/17 12:00 97.7 85 18 140/64 (89) 97 97.7 08/28/17 09:47 88 18 Room Air 21 08/28/17 09:04 99.3 08/28/17 09:00 Room Air 08/28/17 08:00 97.6 89 22 128/70 (89) 97 97.6 08/28/17 04:00 99.3 86 18 130/76 (94) 92 99.3 08/28/17 03:45 98.4 08/28/17 00:00 98.4 63 18 132/78 (96) 97 98.4 Intake and Output 08/27/17 08/28/17 19:00 07:00 Intake Total 1540 ml 920 ml Output Total 1800 ml 2600 ml Balance -260 ml -1680 ml Intake Oral 720 ml IV Total 820 ml 920 ml Output Urine Total 1800 ml 2600 ml # Bowel Movements 1 Laboratory Tests Test 08/28/17 05:45 08/28/17 16:30 White Blood Count 5.5 K/UL (4.8-10.8) Red Blood Count 3.01 M/UL (4.70-6.10) L Hemoglobin 8.7 G/DL (14.2-18.0) L Hematocrit 26.0 % (42.0-52.0) L Mean Corpuscular Volume 86 FL (80-99) Mean Corpuscular Hemoglobin 28.9 PG (27.0-31.0) Mean Corpuscular Hemoglobin Concent 33.5 G/DL (32.0-36.0) Red Cell Distribution Width 12.4 % (11.6-14.8) Platelet Count 283 K/UL (150-450) Mean Platelet Volume 5.9 FL (6.5-10.1) L Neutrophils (%) (Auto) 72.6 % (45.0-75.0) Lymphocytes (%) (Auto) 17.7 % (20.0-45.0) L Monocytes (%) (Auto) 8.0 % (1.0-10.0) Eosinophils (%) (Auto) 1.0 % (0.0-3.0) Basophils (%) (Auto) 0.7 % (0.0-2.0) Erythrocyte Sedimentation Rate 126 MM/HR (0-20) H Sodium Level 129 MMOL/L (136-145) L Potassium Level 4.1 MMOL/L (3.5-5.1) Chloride Level 95 MMOL/L (98-107) L Carbon Dioxide Level 25 MMOL/L (21-32) Anion Gap 9 mmol/L (5-15) Blood Urea Nitrogen 8 mg/dL (7-18) Creatinine 0.6 MG/DL (0.55-1.30) Estimat Glomerular Filtration Rate > 60 mL/min (>60) Glucose Level 92 MG/DL (74-106) Calcium Level 7.9 MG/DL (8.5-10.1) L Total Bilirubin 0.2 MG/DL (0.2-1.0) Aspartate Amino Transf (AST/SGOT) 39 U/L (15-37) H Alanine Aminotransferase (ALT/SGPT) 80 U/L (12-78) H Alkaline Phosphatase 104 U/L (46-116) C-Reactive Protein, Quantitative 12.0 mg/dL (0.00-0.90) H Total Protein 6.7 G/DL (6.4-8.2) Albumin 1.8 G/DL (3.4-5.0) L Globulin 4.9 g/dL Albumin/Globulin Ratio 0.4 (1.0-2.7) L Urine Opiates Screen Positive (NEGATIVE) H Urine Barbiturates Screen Negative (NEGATIVE) Phencyclidine (PCP) Screen Negative (NEGATIVE) Urine Amphetamines Screen Negative (NEGATIVE) Urine Benzodiazepines Screen Negative (NEGATIVE) Urine Cocaine Screen Negative (NEGATIVE) Urine Marijuana (THC) Screen Negative (NEGATIVE) Omid Tellez MD Aug 28, 2017 23:53
[2017-08-29] VITALS: BP 139/81
--- NOTE | 2017-08-29 00:15 | Progress Note ---
DATE: 08/27/2017 NOTE: POOR AUDIO PSYCHOTHERAPY CONSULTATION PROGRESS NOTE TREATING ATTENDING PHYSICIAN: Chemo Dietrich D.O. SUBJECTIVE: This patient is a 56-year-old male patient who has been disorganized, confused, and irritable. The patient has a history of major depression. The patient has been feeling restless and agitated as well and has poor frustration tolerance, however, there is no indication for suicidal or homicidal thoughts of ideation. This clinician assessed this patient. The patient was complaining that pain medications are very helpful to prevent pain. He states that he has been suffering with pain significantly for a long time . MENTAL STATUS EXAMINATION: The patient is alert and oriented to person and place. Mood is irritable. Affect is congruent. Thought process is disorganized. PLAN: Provide the patient with reality orientation and supportive psychotherapy, cognitive behavior poor coping skills. Continue with behavioral management. Continue to provide the patient with intervention. This clinician has reviewed the patient's chart and discussed the treatment with treatment team. Farooq Miller PsyD. : Madelyn JOB#: [id number] CC:
[2017-08-29] MEDS: HYDROmorphone 1mg/ml Carpuject IVP PRN ×6 (01:13→21:29)
[2017-08-29] MEDS: Oxacillin 2 GM in NS 110 ML IVPB SCH ×6 (01:13→20:29)
[2017-08-29 04:00] VITALS: BP 129/67
[2017-08-29] MEDS: LORazepam 1mg tab ORAL PRN (04:44)
[2017-08-29 06:59] LABS: BASOPHILS % (AUTO) 0.3 % (0.0-2.0); EOSINOPHILS % (AUTO) 0.6 % (0.0-3.0); HEMATOCRIT 26.3 % (42.0-52.0); HEMOGLOBIN 9.1 G/DL (14.2-18.0); LYMPHOCYTES % (AUTO) 17.5 % (20.0-45.0); MEAN CORPUSCULAR VOLUME 86 FL (80-99); MONOCYTES % (AUTO) 8.8 % (1.0-10.0); NEUTROPHILS % (AUTO) 72.9 % (45.0-75.0); PLATELET COUNT 294 K/UL (150-450); RED BLOOD COUNT 3.07 M/UL (4.70-6.10)
[2017-08-29 07:15] LABS: ALANINE AMINOTRANSFERASE 52 U/L (12-78); ALBUMIN 1.7 G/DL (3.4-5.0); ALBUMIN/GLOBULIN RATIO 0.3 (1.0-2.7); ALKALINE PHOSPHATASE 90 U/L (46-116); ANION GAP 8 mmol/L (5-15); ASPARTATE AMINO TRANSFERASE 27 U/L (15-37); BILIRUBIN,TOTAL 0.3 MG/DL (0.2-1.0); BLOOD UREA NITROGEN 9 mg/dL (7-18); CALCIUM 8.2 MG/DL (8.5-10.1); CARBON DIOXIDE 25 MMOL/L (21-32); CHLORIDE 96 MMOL/L (98-107); CREATININE 0.6 MG/DL (0.55-1.30); POTASSIUM 3.7 MMOL/L (3.5-5.1); SODIUM 129 MMOL/L (136-145)
[2017-08-29 08:00] VITALS: BP 142/81
--- NOTE | 2017-08-29 08:29 | General Progress Note ---
Assessment/Plan Assessment/Plan (1) Left sided wall chest pain (2) Lung effusion possible empyema (3) S/p VATS (4) Intercostal Neuropathy (5) Lumbar Spondylosis (6) T9-10 discitis/osteomyelitis with epidural abscess (7) Cervical spinal stenosis We will continue Dilaudid Hinkley and Neurontin. Recommend Neurosurgical consultation as per [employer]. D/w Dr. Stevens and he concurred. Subjective Date patient seen: Aug 29, 2017 Time patient seen: 06:45 - am Allergies: Coded Allergies: No Known Allergies (Unverified , 08/06/17) Subjective REVIEW OF SYSTEMS: Denies rash, fever, chills, sweating, dizziness, drowsiness, blurred vision, sore throat, or change in weight. No nausea, vomiting, diarrhea, or blood in the stool or urine. He is complaining of left chest wall pain and back pain. SUBJECTIVE: Patient is in bed no signs of pain or distress. Waiting for transfer to hospital with higher level of care for neurosurgical consultation. MRI of T and C spine reviewed. Objective Last 24 Hour Vital Signs Date Time Temp Pulse Resp B/P (MAP) Pulse Ox O2 Delivery O2 Flow Rate FiO2 08/29/17 04:00 98.3 83 21 129/67 (87) 92 98.3 08/29/17 00:00 97.5 90 19 139/81 (100) 92 97.5 08/28/17 21:00 Room Air 08/28/17 20:02 91 20 Room Air 21 08/28/17 20:00 98.3 97 20 128/68 (88) 92 98.3 08/28/17 17:30 97.1 08/28/17 17:00 97.1 08/28/17 16:00 97.1 85 20 130/64 (86) 99 97.1 08/28/17 12:00 97.7 85 18 140/64 (89) 97 97.7 08/28/17 09:47 88 18 Room Air 21 08/28/17 09:04 99.3 08/28/17 09:00 Room Air Intake and Output 08/28/17 08/29/17 19:00 07:00 Intake Total 960 ml 400 ml Output Total 2000 ml 1600 ml Balance -1040 ml -1200 ml Intake Oral 960 ml IV Total 400 ml Output Urine Total 2000 ml 1600 ml Laboratory Tests 08/28/17 16:30: Urine Opiates Screen PositiveH, Urine Barbiturates Screen Negative, Phencyclidine (PCP) Screen Negative, Urine Amphetamines Screen Negative, Urine Benzodiazepines Screen Negative, Urine Cocaine Screen Negative, Urine Marijuana (THC) Screen Negative 08/29/17 06:15: White Blood Count 7.0, Red Blood Count 3.07L, Hemoglobin 9.1L, Hematocrit 26.3L , Mean Corpuscular Volume 86, Mean Corpuscular Hemoglobin 29.6, Mean Corpuscular Hemoglobin Concent 34.5, Red Cell Distribution Width 13.0, Platelet Count 294, Mean Platelet Volume 5.4L, Neutrophils (%) (Auto) 72.9, Lymphocytes ( %) (Auto) 17.5L, Monocytes (%) (Auto) 8.8, Eosinophils (%) (Auto) 0.6, Basophils (%) (Auto) 0.3, Sodium Level 129L, Potassium Level 3.7, Chloride Level 96L, Carbon Dioxide Level 25, Anion Gap 8, Blood Urea Nitrogen 9, Creatinine 0.6, Estimat Glomerular Filtration Rate > 60, Glucose Level 115H, Calcium Level 8.2L, Total Bilirubin 0.3, Aspartate Amino Transf (AST/SGOT) 27, Alanine Aminotransferase (ALT/SGPT) 52, Alkaline Phosphatase 90, Total Protein 7.4, Albumin 1.7L, Globulin 5.7, Albumin/Globulin Ratio 0.3L Height (Feet): 5 Height (Inches): 7.00 Weight (Pounds): 159 Objective GENERAL: Alert, awake, and oriented. LUNGS: Decreased breath sounds bilaterally. HEART: S1 S2 Regular. ABDOMEN: Benign. EXTREMITIES: No cyanosis. No clubbing. No edema. NEURO: No changes. Comparison: MRI lumbar spine performed 08/27/2017, CT chest 08/26/2017 Findings: There is considerable motion degradation of image quality. There is a posterior intermediate to slightly T2 hyperintense epidural collection posterior to the spinal cord at T7-T10 suspicious for an epidural abscess. There is moderate compression of the spinal cord which is probably worse at about the T8 level. The thecal sac diameter has a residual AP dimension of about 3 to 4 mm. Difficult to ascertain whether there is cord edema given the poor quality of the study. There is evidence of spondylodiscitis at T9-10 characterized by fluid signal intensity within the intervertebral disc and adjacent bone marrow edema within the T9 and T10 vertebra. There are bilateral pleural effusions partially seen on this examination. The configuration suggests loculation of portions of the fluid in the pleural space. Empyema is certainly not excluded. Multilevel facet hypertrophy noted within the thoracic spine. Disc desiccation and narrowing present at multiple levels. IMPRESSION: Suspicion of cord compression T7-T10 secondary to a posterior epidural abscess versus mass. Abscess favored given suspicion of spondylodiscitis at T9-10 as well as bilateral pleural effusions and pneumonia (recent diagnosed on CT chest). Procedure: MRI C Spine no Contrast Indication: Severe neck pain, recent diagnosis of thoracic spine epidural abscess Technique: Sagittal T1 FLAIR PROPELLER, sagittal T2 PROPELLOR, sagittal STIR, axial T2 PROPELLER, axial 3D COSMIC ASPIR images were obtained through the cervical spine. Patient unable to tolerate further imaging Comparison: none Findings: There is significant image degradation due to motion artifact There is slight posterior offset of C5 on C6. The remainder the bony alignment is normal. There is decreased T1 and increased STIR signal involving the C5 and C6 vertebral bodies, associated with marked degenerative narrowing of the C5-6 disc.. STIR images demonstrate some edema of the prevertebral vertebral fat adjacent to C4 and C5. No epidural fluid collection demonstrated. The remainder of the vertebral body marrow signal is normal At C2-3, there is mild central posterior disc protrusion. This results in mild narrowing of the spinal canal, to 9 mm AP dimension, but no significant impingement on the spinal cord. The neural foramina are preserved. At C3-4, there is mild degenerative disc narrowing. There is posterior disc bulge/osteophyte complex, broad-based but in particular protruding into the right side of the spinal canal. This results in impingement on the cord and obliteration of the right lateral recess. There is also severe bilateral neural foraminal stenosis at this level. Mild spinal stenosis, predominantly due to short pedicles, continues caudad posterior to the C4 vertebral body. At C4-5, there is mild degenerative disc narrowing and generalized circumferential annular bulge. This, in combination with ligamentum flavum hypertrophy and short pedicles results in moderate to severe narrowing of the spinal canal and impingement on the spinal cord, spinal canal narrowed to minimum 5 mm AP dimension. There is severe bilateral neural foraminal stenosis as well. Mild to moderate narrowing of the spinal canal continues cephalad to the disc, predominantly due to short pedicles. At C5-6, there is generalized circumferential annular bulge. This results in moderate to severe narrowing of the spinal canal to a minimum of 5 mm AP dimension and impingement on the spinal cord. There is severe bilateral neural foraminal stenosis. At C6-7, generalized there is mild circumferential annular bulge. In addition, there is right paracentral disc protrusion/osteophyte complex which impinges upon the right lateral recess and may impinge slightly upon the right side of the spinal cord. There is severe right and moderate left neural foraminal stenosis. At C7-T1, no significant disc bulge or protrusion, spinal stenosis, or neural foraminal stenosis. Due to the image degradation, the mid cervical cord is not sufficiently well imaged to assess for the presence of cord edema/myelomalacia The included extraspinal soft tissues are unremarkable. Impression: Disc narrowing at C5-6. Marrow edema of the adjacent C5 and C6 vertebral bodies is noted. This is most likely due to Modic type I degenerative change and reactive marrow edema, particularly given the absence of edema within the disc. However, the possibility of spondylodiscitis as etiology of this finding, particularly in view of recent diagnosis of thoracic epidural abscess and in view of the slight degree of surrounding soft tissue edema, should also be considered Severe spinal stenosis with cord compression at multiple levels extending from C3-4 through C5-6. Minimum AP dimension of the spinal canal 5 mm. Due to image degradation, it is uncertain as to whether there is significant cord edema/myelomalacia present Multilevel severe neural foraminal stenosis as detailed level by level basis above Mark Rausch Aug 29, 2017 08:29
[2017-08-29] MEDS: DULoxetine 30mg cap ORAL SCH (09:10)
[2017-08-29] MEDS: Heparin 5000 units/ml inj SUBQ SCH ×2 (09:13→20:31)
--- NOTE | 2017-08-29 10:32 | General Surgery Progress Note ---
General Surgery-Progress Note Subjective Additional Comments no acute events. asking for pain meds often Objective Last 24 Hour Vital Signs Date Time Temp Pulse Resp B/P (MAP) Pulse Ox O2 Delivery O2 Flow Rate FiO2 08/29/17 09:13 98.3 08/29/17 08:15 86 18 Room Air 21 08/29/17 08:00 97.2 84 17 142/81 (101) 92 97.2 08/29/17 04:00 98.3 83 21 129/67 (87) 92 98.3 08/29/17 00:00 97.5 90 19 139/81 (100) 92 97.5 08/28/17 21:00 Room Air 08/28/17 20:02 91 20 Room Air 21 08/28/17 20:00 98.3 97 20 128/68 (88) 92 98.3 08/28/17 17:30 97.1 08/28/17 17:00 97.1 08/28/17 16:00 97.1 85 20 130/64 (86) 99 97.1 08/28/17 12:00 97.7 85 18 140/64 (89) 97 97.7 I&O Intake and Output 08/28/17 08/29/17 19:00 07:00 Intake Total 960 ml 400 ml Output Total 2000 ml 1600 ml Balance -1040 ml -1200 ml Intake Oral 960 ml IV Total 400 ml Output Urine Total 2000 ml 1600 ml Wound: clean, dry Drains: none Cardiovascular: RSR Respiratory: clear Abdomen: soft, non-tender, present bowel sounds Extremities: no cyanosis Laboratory Tests Test 08/28/17 16:30 08/29/17 06:15 Urine Opiates Screen Positive (NEGATIVE) H Urine Barbiturates Screen Negative (NEGATIVE) Phencyclidine (PCP) Screen Negative (NEGATIVE) Urine Amphetamines Screen Negative (NEGATIVE) Urine Benzodiazepines Screen Negative (NEGATIVE) Urine Cocaine Screen Negative (NEGATIVE) Urine Marijuana (THC) Screen Negative (NEGATIVE) White Blood Count 7.0 K/UL (4.8-10.8) Red Blood Count 3.07 M/UL (4.70-6.10) L Hemoglobin 9.1 G/DL (14.2-18.0) L Hematocrit 26.3 % (42.0-52.0) L Mean Corpuscular Volume 86 FL (80-99) Mean Corpuscular Hemoglobin 29.6 PG (27.0-31.0) Mean Corpuscular Hemoglobin Concent 34.5 G/DL (32.0-36.0) Red Cell Distribution Width 13.0 % (11.6-14.8) Platelet Count 294 K/UL (150-450) Mean Platelet Volume 5.4 FL (6.5-10.1) L Neutrophils (%) (Auto) 72.9 % (45.0-75.0) Lymphocytes (%) (Auto) 17.5 % (20.0-45.0) L Monocytes (%) (Auto) 8.8 % (1.0-10.0) Eosinophils (%) (Auto) 0.6 % (0.0-3.0) Basophils (%) (Auto) 0.3 % (0.0-2.0) Sodium Level 129 MMOL/L (136-145) L Potassium Level 3.7 MMOL/L (3.5-5.1) Chloride Level 96 MMOL/L (98-107) L Carbon Dioxide Level 25 MMOL/L (21-32) Anion Gap 8 mmol/L (5-15) Blood Urea Nitrogen 9 mg/dL (7-18) Creatinine 0.6 MG/DL (0.55-1.30) Estimat Glomerular Filtration Rate > 60 mL/min (>60) Glucose Level 115 MG/DL (74-106) H Calcium Level 8.2 MG/DL (8.5-10.1) L Total Bilirubin 0.3 MG/DL (0.2-1.0) Aspartate Amino Transf (AST/SGOT) 27 U/L (15-37) Alanine Aminotransferase (ALT/SGPT) 52 U/L (12-78) Alkaline Phosphatase 90 U/L (46-116) Total Protein 7.4 G/DL (6.4-8.2) Albumin 1.7 G/DL (3.4-5.0) L Globulin 5.7 g/dL Albumin/Globulin Ratio 0.3 (1.0-2.7) L Plan Problems: (1) Empyema Assessment & Plan: s/p VATS. since chest tube removed. wounds healing. no signs of surgical site infection. does have pain on left ribs and likely healing from surgery patient signed out AMA last hospitalization prior to completion of therapy. Repeat chest CT now with larger right sided effusion possible empyema. MRI spine reviewed. spine abscess recommend tap of right side for cultures / eval -patient declined and refused thoracentesis needs spine surgery eval. possibly may need transfer to high level of care IV Abx will follow with Brian Milligan Aug 29, 2017 10:32
[2017-08-29 12:00] VITALS: BP 109/70
--- NOTE | 2017-08-29 12:11 | Diagnostic Imaging Report ---
Indication: Severe neck pain, recent diagnosis of thoracic spine epidural abscess Technique: Sagittal T1 FLAIR PROPELLER, sagittal T2 PROPELLOR, sagittal STIR, axial T2 PROPELLER, axial 3D COSMIC ASPIR images were obtained through the cervical spine. Patient unable to tolerate further imaging Comparison: none Findings: There is significant image degradation due to motion artifact There is slight posterior offset of C5 on C6. The remainder the bony alignment is normal. There is decreased T1 and increased STIR signal involving the C5 and C6 vertebral bodies, associated with marked degenerative narrowing of the C5-6 disc.. STIR images demonstrate some edema of the prevertebral vertebral fat adjacent to C4 and C5. No epidural fluid collection demonstrated. The remainder of the vertebral body marrow signal is normal At C2-3, there is mild central posterior disc protrusion. This results in mild narrowing of the spinal canal, to 9 mm AP dimension, but no significant impingement on the spinal cord. The neural foramina are preserved. At C3-4, there is mild degenerative disc narrowing. There is posterior disc bulge/osteophyte complex, broad-based but in particular protruding into the right side of the spinal canal. This results in impingement on the cord and obliteration of the right lateral recess. There is also severe bilateral neural foraminal stenosis at this level. Mild spinal stenosis, predominantly due to short pedicles, continues caudad posterior to the C4 vertebral body. At C4-5, there is mild degenerative disc narrowing and generalized circumferential annular bulge. This, in combination with ligamentum flavum hypertrophy and short pedicles results in moderate to severe narrowing of the spinal canal and impingement on the spinal cord, spinal canal narrowed to minimum 5 mm AP dimension. There is severe bilateral neural foraminal stenosis as well. Mild to moderate narrowing of the spinal canal continues cephalad to the disc, predominantly due to short pedicles. At C5-6, there is generalized circumferential annular bulge. This results in moderate to severe narrowing of the spinal canal to a minimum of 5 mm AP dimension and impingement on the spinal cord. There is severe bilateral neural foraminal stenosis. At C6-7, generalized there is mild circumferential annular bulge. In addition, there is right paracentral disc protrusion/osteophyte complex which impinges upon the right lateral recess and may impinge slightly upon the right side of the spinal cord. There is severe right and moderate left neural foraminal stenosis. At C7-T1, no significant disc bulge or protrusion, spinal stenosis, or neural foraminal stenosis. Due to the image degradation, the mid cervical cord is not sufficiently well imaged to assess for the presence of cord edema/myelomalacia The included extraspinal soft tissues are unremarkable. Impression: Disc narrowing at C5-6. Marrow edema of the adjacent C5 and C6 vertebral bodies is noted. This is most likely due to Modic type I degenerative change and reactive marrow edema, particularly given the absence of edema within the disc. However, the possibility of spondylodiscitis as etiology of this finding, particularly in view of recent diagnosis of thoracic epidural abscess and in view of the slight degree of surrounding soft tissue edema, should also be considered Severe spinal stenosis with cord compression at multiple levels extending from C3-4 through C5-6. Minimum AP dimension of the spinal canal 5 mm. Due to image degradation, it is uncertain as to whether there is significant cord edema/myelomalacia present Multilevel severe neural foraminal stenosis as detailed level by level basis above Critical value findings phoned to Dr. Dietrich at the time of interpretation
--- NOTE | 2017-08-29 12:20 | Infectious Diseases Prog Note ---
Assessment/Plan Assessment/Plan ASSESSMENT: 1. The patient is a 56-year-old male with multiple medical problems, who has recent empyema/bacteremia due to methicillin-sensitive Staphylococcus aureus ( Signed off AMA on 08/18/17 and had incomplete treatment; only 10 day of 42) -CT chest 08/25: Increased size of loculated right pleural effusion. Small air in the pleural space. Smaller residual left loculated pleural fluid with small air. Small to moderate fluid collection now in the left fissure. Bilateral lower lobe atelectasis/consolidations and air space disease,similar. -s/p VATS, partial pleurectomy, decortication 08/14 -OR findings : Bronchoscopy: A minimal amount of mucopurulent secretion was lavaged and suctioned clear. No endobronchial lesions. -VATS: There were noted to be numerous adhesions tethering along to the surrounding chest wall. The disease appears to be localized in the left lower lobe as the left upper lobe was virtually spared. - OR cx MSSA -CT chest 08/10: Left pleural effusion. Scalloped appearance suggests loculation. Presence of gas bubbles suggest infection by gas-forming organism. Gas bubbles appear trapped within the fluid rather than floating nondependently , indicating the fluid may be highly viscous. - -08/07 Bcx 4/4 MSSA; 08/08 4/4+; 08/10 2/4 +; 08/11 2/4+; 08/13 Neg x4; Bcx 08/27 NTDx4 -08/28 ESR 126 <86 (08/10), CRP 12 < 27 (08/09) 2. Mild leukocytosis, resolved 3. Low grade fever, improving 4. Probable endocarditis (NURA was not done). 5. Thoracic Discitis/Osteomyelitis and epidural abscess T7-T10- causing spinal cord compression -MRI Thoracic Spine: Suspicion of cord compression T7-T10 secondary to a posterior epidural abscess versus mass. Abscess favored given suspicion of spondylodiscitis at T9-10 as well as bilateral pleural effusions and pneumonia ( recent diagnosed on CT chest). Significantly limited study due to motion. -MRI Lumbar spine: Evidence of T9-10 discitis/osteomyelitis. Suspect related to previously described adjacent bilateral pleural empyemas. Evidence of epidural abscess measuring at least 8 x 11 mm in diameter, and extending at least 5 cm craniocaudad, at and above the T9 level. This results in significant spinal stenosis. Note that it is incompletely included in the imaging volume, and the cephalad extent above mid T7 is unclear. Recommend thoracic MRI for further evaluation. As mentioned above, evidence of bilateral empyemas, with bilateral loculated pleural fluid collections and extensive enhancement and edema of the adjacent soft tissue. Extensive multilevel degenerative changes elsewhere, as detailed on a level by level basis above Polysubstance abuse- refers last IVDA was ~7 yrs ago -UDS (prior admission) +THC, cocaine and amphetamines HIV - non progressor- per patient, never on Tx and CD4 >500 and UD VL -07/2017 CD4 510 (39.2%), VL ND Hep C s/p tx (20 years ago) with sustained virologic response COPD/asthma tobacco abuse (stopped smoking 3d [employer]) PLAN: -. The patient is on oxacillin day #5/42-56 (the patient received 11 days of treatment prior to discharge). -monitor LFTs -08/25 SP IV Vanco and Cefepme #2 -08/18 SP IV Oxacillin #9 -08/10 SP Ceftriaxone d# 5 and IV Vancomycin #3 -08/06 SP Cefepime x1, Levaquin x1 -. Monitor CBC/CMP, temperatures -. Monitor cultures (Bcx) -NEEDS EMERGENT transfer to tertiary hospital for neurosurgical evaluation for epidural abscess and thoracic discitis and OM as it causing spinal cord compression -Needs also further chest drainage; currently refusing -will also need NURA to eval for endocarditis/valvular abscess Discussed with RN and rn field case manager who will initiate transfers requests. Subjective Allergies: Coded Allergies: No Known Allergies (Unverified , 08/06/17) Subjective afebrile > 36hrs Bcx NTD MRI with thoranic epidural abscess and cord compression Objective Vital Signs Last 24 Hour Vital Signs Date Time Temp Pulse Resp B/P (MAP) Pulse Ox O2 Delivery O2 Flow Rate FiO2 08/29/17 09:43 98.3 08/29/17 09:13 98.3 08/29/17 09:00 Room Air 08/29/17 08:15 86 18 Room Air 21 08/29/17 08:00 97.2 84 17 142/81 (101) 92 97.2 08/29/17 04:00 98.3 83 21 129/67 (87) 92 98.3 08/29/17 00:00 97.5 90 19 139/81 (100) 92 97.5 08/28/17 21:00 Room Air 08/28/17 20:02 91 20 Room Air 21 08/28/17 20:00 98.3 97 20 128/68 (88) 92 98.3 08/28/17 17:00 97.1 08/28/17 16:00 97.1 85 20 130/64 (86) 99 97.1 Height (Feet): 5 Height (Inches): 7.00 Weight (Pounds): 159 Objective HEENT: No pale conjunctivae. No icterus. NECK: No lymphadenopathy. CHEST: Clear. Incision site is healing. HEART: S1 and S2. ABDOMEN: Soft and nontender. BACK: The patient has tenderness in the lower thoracic and lumbar area. EXTREMITIES: No cyanosis. NEUROLOGIC: Awake and alert. Microbiology Date/Time Source Procedure Growth Status 08/27/17 13:55 Blood Blood Culture - Preliminary NO GROWTH AFTER 24 HOURS Resulted 08/27/17 13:45 Blood Blood Culture - Preliminary NO GROWTH AFTER 24 HOURS Resulted Laboratory Tests Test 08/28/17 16:30 08/29/17 06:15 Urine Opiates Screen Positive (NEGATIVE) H Urine Barbiturates Screen Negative (NEGATIVE) Phencyclidine (PCP) Screen Negative (NEGATIVE) Urine Amphetamines Screen Negative (NEGATIVE) Urine Benzodiazepines Screen Negative (NEGATIVE) Urine Cocaine Screen Negative (NEGATIVE) Urine Marijuana (THC) Screen Negative (NEGATIVE) White Blood Count 7.0 K/UL (4.8-10.8) Red Blood Count 3.07 M/UL (4.70-6.10) L Hemoglobin 9.1 G/DL (14.2-18.0) L Hematocrit 26.3 % (42.0-52.0) L Mean Corpuscular Volume 86 FL (80-99) Mean Corpuscular Hemoglobin 29.6 PG (27.0-31.0) Mean Corpuscular Hemoglobin Concent 34.5 G/DL (32.0-36.0) Red Cell Distribution Width 13.0 % (11.6-14.8) Platelet Count 294 K/UL (150-450) Mean Platelet Volume 5.4 FL (6.5-10.1) L Neutrophils (%) (Auto) 72.9 % (45.0-75.0) Lymphocytes (%) (Auto) 17.5 % (20.0-45.0) L Monocytes (%) (Auto) 8.8 % (1.0-10.0) Eosinophils (%) (Auto) 0.6 % (0.0-3.0) Basophils (%) (Auto) 0.3 % (0.0-2.0) Sodium Level 129 MMOL/L (136-145) L Potassium Level 3.7 MMOL/L (3.5-5.1) Chloride Level 96 MMOL/L (98-107) L Carbon Dioxide Level 25 MMOL/L (21-32) Anion Gap 8 mmol/L (5-15) Blood Urea Nitrogen 9 mg/dL (7-18) Creatinine 0.6 MG/DL (0.55-1.30) Estimat Glomerular Filtration Rate > 60 mL/min (>60) Glucose Level 115 MG/DL (74-106) H Calcium Level 8.2 MG/DL (8.5-10.1) L Total Bilirubin 0.3 MG/DL (0.2-1.0) Aspartate Amino Transf (AST/SGOT) 27 U/L (15-37) Alanine Aminotransferase (ALT/SGPT) 52 U/L (12-78) Alkaline Phosphatase 90 U/L (46-116) Total Protein 7.4 G/DL (6.4-8.2) Albumin 1.7 G/DL (3.4-5.0) L Globulin 5.7 g/dL Albumin/Globulin Ratio 0.3 (1.0-2.7) L Current Medications Medications (Trade) Dose Ordered Sig/Veronica Route PRN Reason Start Time Stop Time Status Last Admin Dose Admin Acetaminophen (Tylenol) 650 mg Q4H PRN ORAL FEVER 08/25/17 08:15 09/24/17 08:14 08/27/17 13:06 Acetaminophen/ Hydrocodone Bitart ([place] 10325) 1 tab Q6H PRN ORAL moderate pain 08/28/17 08:45 09/02/17 12:13 Albuterol/ Ipratropium (Albuterol/ Ipratropium) 3 ml EVERY 4 HOURS PRN HHN Shortness of Breath 08/25/17 08:15 08/30/17 08:14 08/26/17 02:15 Dextrose (Dextrose 50%) 25 ml STAT PRN IV Hypoglycemia 08/25/17 08:15 09/24/17 08:14 Dextrose (Dextrose 50%) 50 ml STAT PRN IV Hypoglycemia 08/25/17 08:30 09/24/17 08:29 Duloxetine HCl (Cymbalta) 30 mg DAILY ORAL 08/25/17 09:00 09/24/17 08:59 08/29/17 09:10 Gabapentin (Neurontin) 300 mg THREE TIMES A DAY ORAL 08/25/17 09:00 09/24/17 08:59 08/29/17 09:11 Gadobutrol (Gadavist) 7.5 mmol NOW PRN IV Radiology Procedure 08/28/17 08:45 08/30/17 08:44 Heparin Sodium (Porcine) (Heparin 5000 units/ml) 5,000 units EVERY 12 HOURS SUBQ 08/25/17 09:00 09/24/17 08:59 08/29/17 09:13 Hydromorphone HCl (Dilaudid) 1 mg Q4H PRN IVP severe pain 08/28/17 08:45 09/04/17 08:44 08/29/17 09:13 Lorazepam (Ativan 2mg/ml 1ml) 2 mg EVERY 2 HOURS PRN IV For Anxiety 08/25/17 08:30 09/01/17 08:14 08/28/17 10:06 Lorazepam (Ativan) 1 mg Q6H PRN ORAL For Anxiety 08/25/17 04:30 09/01/17 04:29 08/29/17 04:44 Ondansetron HCl (Zofran) 4 mg Q6H PRN IVP Nausea & Vomiting 08/25/17 08:15 09/24/17 08:14 Oxacillin Sodium 2 gm/Sodium Chloride 110 ml @ 220 mls/hr Q4HR IVPB 08/25/17 21:00 09/01/17 20:59 08/29/17 09:11 Polyethylene Glycol (Miralax) 17 gm DAILYPRN PRN ORAL Constipation 08/25/17 08:15 09/24/17 08:14 08/28/17 09:04 Sodium Chloride 1,000 ml @ 50 mls/hr Q20H IV 08/26/17 13:45 09/25/17 13:44 08/28/17 21:12 Steph Crowder M.D. Aug 29, 2017 12:20
[2017-08-29] MEDS ORDERED: Heparin 2000 units/Ns 1000ml INJ PRN (14:30)
[2017-08-29] MEDS ORDERED: Lidocaine 1% Plain 30 ml INJ PRN (14:30)
--- NOTE | 2017-08-29 14:33 | General Progress Note ---
Assessment/Plan Problem List: (1) Chronic pain ICD Codes: G89.29 - Other chronic pain SNOMED: 76786900 (2) Hypokalemia ICD Codes: E87.6 - Hypokalemia SNOMED: 65615555 (3) HIV (human immunodeficiency virus infection) ICD Codes: B20 - Human immunodeficiency virus [HIV] disease SNOMED: 60920784 (4) Sepsis ICD Codes: A41.9 - Sepsis, unspecified organism SNOMED: 20048086 Qualifiers: Qualified Codes: A41.9 - Sepsis, unspecified organism (5) Empyema ICD Codes: J86.9 - Pyothorax without fistula SNOMED: 221183011 (6) Drug abuse and dependence ICD Codes: F19.20 - Other psychoactive substance dependence, uncomplicated SNOMED: 6448895 (7) Epidural abscess ICD Codes: G06.2 - Extradural and subdural abscess, unspecified SNOMED: 06813202 Status: unchanged Assessment/Plan ot pt diet abx neph f/u cbc bmp am higher level care prn Subjective Constitutional: Reports: weakness Allergies: Coded Allergies: No Known Allergies (Unverified , 08/06/17) All Systems: reviewed and negative except above Subjective sleepy calm Objective Last 24 Hour Vital Signs Date Time Temp Pulse Resp B/P (MAP) Pulse Ox O2 Delivery O2 Flow Rate FiO2 08/29/17 13:10 98.3 08/29/17 12:00 98.6 83 18 109/70 (83) 93 98.6 08/29/17 09:43 98.3 08/29/17 09:13 98.3 08/29/17 09:00 Room Air 08/29/17 08:15 86 18 Room Air 21 08/29/17 08:00 97.2 84 17 142/81 (101) 92 97.2 08/29/17 04:00 98.3 83 21 129/67 (87) 92 98.3 08/29/17 00:00 97.5 90 19 139/81 (100) 92 97.5 08/28/17 21:00 Room Air 08/28/17 20:02 91 20 Room Air 21 08/28/17 20:00 98.3 97 20 128/68 (88) 92 98.3 08/28/17 17:00 97.1 08/28/17 16:00 97.1 85 20 130/64 (86) 99 97.1 Intake and Output 08/28/17 08/29/17 19:00 07:00 Intake Total 960 ml 400 ml Output Total 2000 ml 1600 ml Balance -1040 ml -1200 ml Intake Oral 960 ml IV Total 400 ml Output Urine Total 2000 ml 1600 ml Laboratory Tests 08/28/17 16:30: Urine Opiates Screen PositiveH, Urine Barbiturates Screen Negative, Phencyclidine (PCP) Screen Negative, Urine Amphetamines Screen Negative, Urine Benzodiazepines Screen Negative, Urine Cocaine Screen Negative, Urine Marijuana (THC) Screen Negative 08/29/17 06:15: White Blood Count 7.0, Red Blood Count 3.07L, Hemoglobin 9.1L, Hematocrit 26.3L , Mean Corpuscular Volume 86, Mean Corpuscular Hemoglobin 29.6, Mean Corpuscular Hemoglobin Concent 34.5, Red Cell Distribution Width 13.0, Platelet Count 294, Mean Platelet Volume 5.4L, Neutrophils (%) (Auto) 72.9, Lymphocytes ( %) (Auto) 17.5L, Monocytes (%) (Auto) 8.8, Eosinophils (%) (Auto) 0.6, Basophils (%) (Auto) 0.3, Sodium Level 129L, Potassium Level 3.7, Chloride Level 96L, Carbon Dioxide Level 25, Anion Gap 8, Blood Urea Nitrogen 9, Creatinine 0.6, Estimat Glomerular Filtration Rate > 60, Glucose Level 115H, Calcium Level 8.2L, Total Bilirubin 0.3, Aspartate Amino Transf (AST/SGOT) 27, Alanine Aminotransferase (ALT/SGPT) 52, Alkaline Phosphatase 90, Total Protein 7.4, Albumin 1.7L, Globulin 5.7, Albumin/Globulin Ratio 0.3L Height (Feet): 5 Height (Inches): 7.00 Weight (Pounds): 159 General Appearance: lethargic EENT: normal ENT inspection Neck: normal alignment Cardiovascular: normal peripheral pulses, normal rate, regular rhythm Respiratory/Chest: chest wall non-tender, lungs clear, normal breath sounds Abdomen: normal bowel sounds, non tender, soft Extremities: normal inspection Edema: no edema noted Arm (L), no edema noted Arm (R), no edema noted Leg (L), no edema noted Leg (R), no edema noted Pedal (L), no edema noted Pedal (R), no edema noted Generalized Neurologic: motor weakness Skin: normal pigmentation, warm/dry Chemo Dietrich DO Aug 29, 2017 14:33
--- NOTE | 2017-08-29 15:26 | Pulmonology Progress Note ---
Assessment/Plan Problems: (1) Sepsis (2) Osteomyelitis (3) COPD (chronic obstructive pulmonary disease) (4) Hypoalbuminemia (5) Hepatitis C (6) HIV (human immunodeficiency virus infection) (7) Pleural effusion Assessment/Plan MRI of spine spine surgery evaluation can not be done at this facility iv abx check electrolytes symptomatic treatment transfer to higher level of care Subjective ROS Limited/Unobtainable: No Interval Events: pt getting PICC line Allergies: Coded Allergies: No Known Allergies (Unverified , 08/06/17) Objective Last 24 Hour Vital Signs Date Time Temp Pulse Resp B/P (MAP) Pulse Ox O2 Delivery O2 Flow Rate FiO2 08/29/17 13:40 98.3 08/29/17 13:10 98.3 08/29/17 12:00 98.6 83 18 109/70 (83) 93 98.6 08/29/17 09:13 98.3 08/29/17 09:00 Room Air 08/29/17 08:15 86 18 Room Air 21 08/29/17 08:00 97.2 84 17 142/81 (101) 92 97.2 08/29/17 04:00 98.3 83 21 129/67 (87) 92 98.3 08/29/17 00:00 97.5 90 19 139/81 (100) 92 97.5 08/28/17 21:00 Room Air 08/28/17 20:02 91 20 Room Air 21 08/28/17 20:00 98.3 97 20 128/68 (88) 92 98.3 08/28/17 17:00 97.1 08/28/17 16:00 97.1 85 20 130/64 (86) 99 97.1 Intake and Output 08/28/17 08/29/17 19:00 07:00 Intake Total 960 ml 400 ml Output Total 2000 ml 1600 ml Balance -1040 ml -1200 ml Intake Oral 960 ml IV Total 400 ml Output Urine Total 2000 ml 1600 ml Microbiology Date/Time Source Procedure Growth Status 08/27/17 13:55 Blood Blood Culture - Preliminary NO GROWTH AFTER 24 HOURS Resulted 08/27/17 13:45 Blood Blood Culture - Preliminary NO GROWTH AFTER 24 HOURS Resulted Laboratory Tests 08/28/17 16:30: Urine Opiates Screen PositiveH, Urine Barbiturates Screen Negative, Phencyclidine (PCP) Screen Negative, Urine Amphetamines Screen Negative, Urine Benzodiazepines Screen Negative, Urine Cocaine Screen Negative, Urine Marijuana (THC) Screen Negative 08/29/17 06:15: White Blood Count 7.0, Red Blood Count 3.07L, Hemoglobin 9.1L, Hematocrit 26.3L , Mean Corpuscular Volume 86, Mean Corpuscular Hemoglobin 29.6, Mean Corpuscular Hemoglobin Concent 34.5, Red Cell Distribution Width 13.0, Platelet Count 294, Mean Platelet Volume 5.4L, Neutrophils (%) (Auto) 72.9, Lymphocytes ( %) (Auto) 17.5L, Monocytes (%) (Auto) 8.8, Eosinophils (%) (Auto) 0.6, Basophils (%) (Auto) 0.3, Sodium Level 129L, Potassium Level 3.7, Chloride Level 96L, Carbon Dioxide Level 25, Anion Gap 8, Blood Urea Nitrogen 9, Creatinine 0.6, Estimat Glomerular Filtration Rate > 60, Glucose Level 115H, Calcium Level 8.2L, Total Bilirubin 0.3, Aspartate Amino Transf (AST/SGOT) 27, Alanine Aminotransferase (ALT/SGPT) 52, Alkaline Phosphatase 90, Total Protein 7.4, Albumin 1.7L, Globulin 5.7, Albumin/Globulin Ratio 0.3L Current Medications Medications (Trade) Dose Ordered Sig/Veronica Route PRN Reason Start Time Stop Time Status Last Admin Dose Admin Acetaminophen (Tylenol) 650 mg Q4H PRN ORAL FEVER 08/25/17 08:15 09/24/17 08:14 08/27/17 13:06 Acetaminophen/ Hydrocodone Bitart ([place] 10/325) 1 tab Q6H PRN ORAL moderate pain 08/28/17 08:45 09/02/17 12:13 Albuterol/ Ipratropium (Albuterol/ Ipratropium) 3 ml EVERY 4 HOURS PRN HHN Shortness of Breath 08/25/17 08:15 08/30/17 08:14 08/26/17 02:15 Chlorhexidine Gluconate ([place]-Hex 2%) 1 applic DAILY@1999 TOPIC 08/29/17 20:00 09/28/17 19:59 Dextrose (Dextrose 50%) 25 ml STAT PRN IV Hypoglycemia 08/25/17 08:15 09/24/17 08:14 Dextrose (Dextrose 50%) 50 ml STAT PRN IV Hypoglycemia 08/25/17 08:30 09/24/17 08:29 Duloxetine HCl (Cymbalta) 30 mg DAILY ORAL 08/25/17 09:00 09/24/17 08:59 08/29/17 09:10 Gabapentin (Neurontin) 300 mg THREE TIMES A DAY ORAL 08/25/17 09:00 09/24/17 08:59 08/29/17 13:10 Gadobutrol (Gadavist) 7.5 mmol NOW PRN IV Radiology Procedure 08/28/17 08:45 08/30/17 08:44 Heparin Sodium (Porcine) (Heparin 5000 units/ml) 5,000 units EVERY 12 HOURS SUBQ 08/25/17 09:00 09/24/17 08:59 08/29/17 09:13 Heparin Sodium/ Sodium Chloride (Heparin 2000 units/Ns 1000ml premix) 2,000 unit ONCE PRN INJ PICC PLACEMENT 08/29/17 14:30 08/30/17 23:59 Hydromorphone HCl (Dilaudid) 1 mg Q4H PRN IVP severe pain 08/28/17 08:45 09/04/17 08:44 08/29/17 13:10 Lidocaine HCl (Xylocaine 1% 30ml) 30 ml ONCE PRN INJ PICC PLACEMENT 08/29/17 14:30 08/30/17 23:59 Lorazepam (Ativan 2mg/ml 1ml) 2 mg EVERY 2 HOURS PRN IV For Anxiety 08/25/17 08:30 09/01/17 08:14 08/28/17 10:06 Lorazepam (Ativan) 1 mg Q6H PRN ORAL For Anxiety 08/25/17 04:30 09/01/17 04:29 08/29/17 04:44 Ondansetron HCl (Zofran) 4 mg Q6H PRN IVP Nausea & Vomiting 08/25/17 08:15 09/24/17 08:14 Oxacillin Sodium 2 gm/Sodium Chloride 110 ml @ 220 mls/hr Q4HR IVPB 08/25/17 21:00 09/01/17 20:59 08/29/17 13:10 Polyethylene Glycol (Miralax) 17 gm DAILYPRN PRN ORAL Constipation 08/25/17 08:15 09/24/17 08:14 08/28/17 09:04 Sodium Chloride 1,000 ml @ 50 mls/hr Q20H IV 08/26/17 13:45 09/25/17 13:44 08/28/17 21:12 Sally Cox MD Aug 29, 2017 15:26
[2017-08-29 16:00] VITALS: BP_SYST 127; BP_SYST 163; BP_DIAS 73; BP_DIAS 87
--- NOTE | 2017-08-29 16:14 | Diagnostic Imaging Report ---
Indications: Needs long-term IV access Technique: Ultrasound confirms patent compressible left basilic vein. Total sterile technique, including sterile probe cover and sterile gel, hat, mask,, sterile gown, large sterile drape, and preparation with 2% chlorhexidine utilized. Local anesthesia with 1% lidocaine. Under real-time ultrasound guidance, puncture basilic vein using 21-gauge needle, documented and archived, passage 0.018 guidewire under direct fluoroscopy, which was used to determine appropriate catheter length, exchange for 5 [place] peel-away sheath. 5 [place] Bard dual-lumen power PICC cut to 47 cm. It was inserted through the peel-away sheath. Peel-away sheath and guidewire removed. Catheter fixed to the skin. Both catheter ports aspirated and flushed. Patient tolerated procedure well, without immediate complication. Digital radiograph documents satisfactory catheter tip position, at the cavoatrial junction. Total fluoroscopy time 0.2 minutes. Total dose area product 5.5 dGycm2 Impression: Successful placement of left arm PICC under sonographic and fluoroscopic guidance, as described above.
[2017-08-29 20:00] VITALS: BP 134/80
[2017-08-29] MEDS: Dyna-Hex 2% Top Sol 2oz TOPIC SCH (20:28)
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
[2017-08-30] VITALS: BP 117/74
[2017-08-30] MEDS: LORazepam 1mg tab ORAL PRN (00:29)
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
[2017-08-30] MEDS: Oxacillin 2 GM in NS 110 ML IVPB SCH ×6 (01:37→20:52)
[2017-08-30] MEDS: HYDROmorphone 1mg/ml Carpuject IVP PRN ×6 (01:38→23:33)
[2017-08-30 04:00] VITALS: BP 122/82
[2017-08-30 06:43] LABS: BASOPHILS % (AUTO) 0.5 % (0.0-2.0); EOSINOPHILS % (AUTO) 1.4 % (0.0-3.0); HEMATOCRIT 26.3 % (42.0-52.0); HEMOGLOBIN 8.7 G/DL (14.2-18.0); LYMPHOCYTES % (AUTO) 21.2 % (20.0-45.0); MEAN CORPUSCULAR VOLUME 86 FL (80-99); MONOCYTES % (AUTO) 7.8 % (1.0-10.0); NEUTROPHILS % (AUTO) 69.2 % (45.0-75.0); PLATELET COUNT 288 K/UL (150-450); RED BLOOD COUNT 3.05 M/UL (4.70-6.10); WHITE BLOOD COUNT 7.4 K/UL (4.8-10.8)
[2017-08-30 06:52] LABS: ANION GAP 5 mmol/L (5-15); BLOOD UREA NITROGEN 6 mg/dL (7-18); CALCIUM 8.1 MG/DL (8.5-10.1); CARBON DIOXIDE 27 MMOL/L (21-32); CHLORIDE 98 MMOL/L (98-107); CREATININE 0.5 MG/DL (0.55-1.30); POTASSIUM 3.7 MMOL/L (3.5-5.1); SODIUM 130 MMOL/L (136-145)
[2017-08-30 08:00] VITALS: BP 129/73
[2017-08-30] MEDS: DULoxetine 30mg cap ORAL SCH (09:37)
[2017-08-30] MEDS: Heparin 5000 units/ml inj SUBQ SCH ×2 (09:38→20:53)
[2017-08-30] MEDS ORDERED: Magnesium Citrate Liq Btl ORAL SCH (11:00)
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
--- NOTE | 2017-08-30 11:18 | Pulmonology Progress Note ---
Assessment/Plan Problems: (1) Epidural abscess (2) Sepsis (3) Osteomyelitis (4) COPD (chronic obstructive pulmonary disease) (5) Hypoalbuminemia (6) Hepatitis C (7) HIV (human immunodeficiency virus infection) (8) Pleural effusion Assessment/Plan pian management MRI of spine spine surgery evaluation can not be done at this facility iv abx check electrolytes symptomatic treatment transfer to higher level of care Subjective ROS Limited/Unobtainable: No Allergies: Coded Allergies: No Known Allergies (Unverified , 08/06/17) Objective Last 24 Hour Vital Signs Date Time Temp Pulse Resp B/P (MAP) Pulse Ox O2 Delivery O2 Flow Rate FiO2 08/30/17 08:00 98.0 88 23 129/73 (91) 93 98.0 08/30/17 04:00 98.2 84 19 122/82 (95) 92 98.2 08/30/17 00:00 99.0 91 19 117/74 (88) 93 99.0 08/29/17 21:00 Room Air 08/29/17 20:00 98.7 102 19 134/80 (98) 92 98.7 08/29/17 20:00 89 20 Room Air 21 08/29/17 17:48 98.3 08/29/17 17:18 98.3 08/29/17 16:00 100.7 93 27 127/73 (91) 92 100.7 08/29/17 13:10 98.3 08/29/17 12:00 98.6 83 18 109/70 (83) 93 98.6 Intake and Output 08/29/17 08/30/17 19:00 07:00 Intake Total 1645 ml 1000 ml Output Total 1000 ml 1350 ml Balance 645 ml -350 ml Intake Oral 800 ml 450 ml IV Total 845 ml 550 ml Output Urine Total 1000 ml 1350 ml General Appearance: WD/WN, no acute distress HEENT: normocephalic Respiratory/Chest: chest wall non-tender, lungs clear, normal breath sounds Cardiovascular: normal peripheral pulses, normal rate Abdomen: normal bowel sounds, soft, non tender Genitourinary: normal external genitalia Extremities: no clubbing Skin: no rash Microbiology Date/Time Source Procedure Growth Status 08/27/17 13:55 Blood Blood Culture - Preliminary NO GROWTH AFTER 48 HOURS Resulted 08/27/17 13:45 Blood Blood Culture - Preliminary NO GROWTH AFTER 48 HOURS Resulted Laboratory Tests 08/30/17 06:25: White Blood Count 7.4, Red Blood Count 3.05L, Hemoglobin 8.7L, Hematocrit 26.3L , Mean Corpuscular Volume 86, Mean Corpuscular Hemoglobin 28.5, Mean Corpuscular Hemoglobin Concent 33.2, Red Cell Distribution Width 13.0, Platelet Count 288, Mean Platelet Volume 5.5L, Neutrophils (%) (Auto) 69.2, Lymphocytes ( %) (Auto) 21.2, Monocytes (%) (Auto) 7.8, Eosinophils (%) (Auto) 1.4, Basophils (%) (Auto) 0.5, Sodium Level 130L, Potassium Level 3.7, Chloride Level 98, Carbon Dioxide Level 27, Anion Gap 5, Blood Urea Nitrogen 6L, Creatinine 0.5L, Estimat Glomerular Filtration Rate > 60, Glucose Level 112H, Calcium Level 8.1L Current Medications Medications (Trade) Dose Ordered Sig/Veronica Route PRN Reason Start Time Stop Time Status Last Admin Dose Admin Acetaminophen (Tylenol) 650 mg Q4H PRN ORAL FEVER 08/25/17 08:15 09/24/17 08:14 08/27/17 13:06 Acetaminophen/ Hydrocodone Bitart ([place] 10/325) 1 tab Q6H PRN ORAL moderate pain 08/28/17 08:45 09/02/17 12:13 Chlorhexidine Gluconate (Nishi-Hex 2%) 1 applic DAILY@2000 TOPIC 08/29/17 20:00 09/28/17 19:59 08/29/17 20:28 Dextrose (Dextrose 50%) 25 ml STAT PRN IV Hypoglycemia 08/25/17 08:15 09/24/17 08:14 Dextrose (Dextrose 50%) 50 ml STAT PRN IV Hypoglycemia 08/25/17 08:30 09/24/17 08:29 Docusate Sodium (Colace) 100 mg THREE TIMES A DAY ORAL 08/30/17 13:00 09/29/17 12:59 Duloxetine HCl (Cymbalta) 30 mg DAILY ORAL 08/25/17 09:00 09/24/17 08:59 08/30/17 09:37 Gabapentin (Neurontin) 300 mg THREE TIMES A DAY ORAL 08/25/17 09:00 09/24/17 08:59 08/30/17 09:37 Heparin Sodium (Porcine) (Heparin 5000 units/ml) 5,000 units EVERY 12 HOURS SUBQ 08/25/17 09:00 09/24/17 08:59 08/30/17 09:38 Heparin Sodium/ Sodium Chloride (Heparin 2000 units/Ns 1000ml premix) 2,000 unit ONCE PRN INJ PICC PLACEMENT 08/29/17 14:30 08/30/17 23:59 Hydromorphone HCl (Dilaudid) 1 mg Q4H PRN IVP severe pain 08/28/17 08:45 09/04/17 08:44 08/30/17 10:09 Lidocaine HCl (Xylocaine 1% 30ml) 30 ml ONCE PRN INJ PICC PLACEMENT 08/29/17 14:30 08/30/17 23:59 Lorazepam (Ativan 2mg/ml 1ml) 2 mg EVERY 2 HOURS PRN IV For Anxiety 08/25/17 08:30 09/01/17 08:14 08/28/17 10:06 Lorazepam (Ativan) 1 mg Q6H PRN ORAL For Anxiety 08/25/17 04:30 09/01/17 04:29 08/30/17 00:29 Magnesium Citrate (Citrate Of Magnesia) 300 ml ONCE ORAL 08/30/17 11:00 08/30/17 12:00 Ondansetron HCl (Zofran) 4 mg Q6H PRN IVP Nausea & Vomiting 08/25/17 08:15 09/24/17 08:14 Oxacillin Sodium 2 gm/Sodium Chloride 110 ml @ 220 mls/hr Q4HR IVPB 08/25/17 21:00 09/01/17 20:59 08/30/17 10:31 Polyethylene Glycol (Miralax) 17 gm DAILYPRN PRN ORAL Constipation 08/25/17 08:15 09/24/17 08:14 08/28/17 09:04 Sodium Chloride 1,000 ml @ 50 mls/hr Q20H IV 08/26/17 13:45 09/25/17 13:44 08/29/17 21:29 Sally Cox MD Aug 30, 2017 11:18
--- NOTE | 2017-08-30 11:34 | General Surgery Progress Note ---
General Surgery-Progress Note Subjective Additional Comments no acute events. Objective Last 24 Hour Vital Signs Date Time Temp Pulse Resp B/P (MAP) Pulse Ox O2 Delivery O2 Flow Rate FiO2 08/30/17 08:00 98.0 88 23 129/73 (91) 93 98.0 08/30/17 04:00 98.2 84 19 122/82 (95) 92 98.2 08/30/17 00:00 99.0 91 19 117/74 (88) 93 99.0 08/29/17 21:00 Room Air 08/29/17 20:00 98.7 102 19 134/80 (98) 92 98.7 08/29/17 20:00 89 20 Room Air 21 08/29/17 17:48 98.3 08/29/17 17:18 98.3 08/29/17 16:00 100.7 93 27 127/73 (91) 92 100.7 08/29/17 13:10 98.3 08/29/17 12:00 98.6 83 18 109/70 (83) 93 98.6 I&O Intake and Output 08/29/17 08/30/17 19:00 07:00 Intake Total 1645 ml 1000 ml Output Total 1000 ml 1350 ml Balance 645 ml -350 ml Intake Oral 800 ml 450 ml IV Total 845 ml 550 ml Output Urine Total 1000 ml 1350 ml Wound: clean Drains: none Cardiovascular: RSR Respiratory: clear Abdomen: soft, non-tender, present bowel sounds Extremities: no cyanosis Laboratory Tests Test 08/30/17 06:25 White Blood Count 7.4 K/UL (4.8-10.8) Red Blood Count 3.05 M/UL (4.70-6.10) L Hemoglobin 8.7 G/DL (14.2-18.0) L Hematocrit 26.3 % (42.0-52.0) L Mean Corpuscular Volume 86 FL (80-99) Mean Corpuscular Hemoglobin 28.5 PG (27.0-31.0) Mean Corpuscular Hemoglobin Concent 33.2 G/DL (32.0-36.0) Red Cell Distribution Width 13.0 % (11.6-14.8) Platelet Count 288 K/UL (150-450) Mean Platelet Volume 5.5 FL (6.5-10.1) L Neutrophils (%) (Auto) 69.2 % (45.0-75.0) Lymphocytes (%) (Auto) 21.2 % (20.0-45.0) Monocytes (%) (Auto) 7.8 % (1.0-10.0) Eosinophils (%) (Auto) 1.4 % (0.0-3.0) Basophils (%) (Auto) 0.5 % (0.0-2.0) Sodium Level 130 MMOL/L (136-145) L Potassium Level 3.7 MMOL/L (3.5-5.1) Chloride Level 98 MMOL/L (98-107) Carbon Dioxide Level 27 MMOL/L (21-32) Anion Gap 5 mmol/L (5-15) Blood Urea Nitrogen 6 mg/dL (7-18) L Creatinine 0.5 MG/DL (0.55-1.30) L Estimat Glomerular Filtration Rate > 60 mL/min (>60) Glucose Level 112 MG/DL (74-106) H Calcium Level 8.1 MG/DL (8.5-10.1) L Plan Problems: (1) Empyema Assessment & Plan: s/p VATS. since chest tube removed. wounds healing. no signs of surgical site infection. does have pain on left ribs and likely healing from surgery patient signed out AMA last hospitalization prior to completion of therapy. Repeat chest CT now with larger right sided effusion possible empyema. MRI spine reviewed. spine abscess recommend tap of right side for cultures / eval -patient declined and refused thoracentesis needs spine surgery eval. possibly may need transfer to high level of care IV Abx will follow with Brian Milligan Aug 30, 2017 11:34
[2017-08-30 12:00] VITALS: BP 121/67
[2017-08-30] MEDS: Docusate 100mg cap ORAL SCH ×2 (13:11→18:27)
[2017-08-30] MEDS: HYDROcodone/Acetamin 10/325 tab ORAL PRN ×2 (13:12→20:51)
--- NOTE | 2017-08-30 13:12 | General Progress Note ---
Assessment/Plan Assessment/Plan (1) Left sided wall chest pain (2) Lung effusion possible empyema (3) S/p VATS (4) Intercostal Neuropathy (5) Lumbar Spondylosis (6) T9-10 discitis/osteomyelitis with epidural abscess (7) Cervical spinal stenosis We will continue Dilaudid Star and Neurontin. Recommend Neurosurgical consultation as per tire fixer. D/w Dr. Stevens and he concurred. Subjective Date patient seen: Aug 30, 2017 Time patient seen: 12:00 - pm Allergies: Coded Allergies: No Known Allergies (Unverified , 08/06/17) Subjective REVIEW OF SYSTEMS: Denies rash, fever, chills, sweating, dizziness, drowsiness, blurred vision, sore throat, or change in weight. No nausea, vomiting, diarrhea, or blood in the stool or urine. He is complaining of left chest wall pain and back pain. SUBJECTIVE: Patient continues to be in bed and continues to c/o severe pain, has been getting the Dilaudid and was advised to use the Star in between for breakthrough pain. D/w nurse and waiting to transfer to higher level of care. Objective Last 24 Hour Vital Signs Date Time Temp Pulse Resp B/P (MAP) Pulse Ox O2 Delivery O2 Flow Rate FiO2 08/30/17 12:00 97.8 81 22 121/67 (85) 93 97.8 08/30/17 09:00 Room Air 08/30/17 08:00 98.0 88 23 129/73 (91) 93 98.0 08/30/17 08:00 86 20 Room Air 21 08/30/17 04:00 98.2 84 19 122/82 (95) 92 98.2 08/30/17 00:00 99.0 91 19 117/74 (88) 93 99.0 08/29/17 21:00 Room Air 08/29/17 20:00 98.7 102 19 134/80 (98) 92 98.7 08/29/17 20:00 89 20 Room Air 21 08/29/17 17:48 98.3 08/29/17 17:18 98.3 08/29/17 16:00 100.7 93 27 127/73 (91) 92 100.7 Intake and Output 08/29/17 08/30/17 19:00 07:00 Intake Total 1645 ml 1000 ml Output Total 1000 ml 1350 ml Balance 645 ml -350 ml Intake Oral 800 ml 450 ml IV Total 845 ml 550 ml Output Urine Total 1000 ml 1350 ml Laboratory Tests 08/30/17 06:25: White Blood Count 7.4, Red Blood Count 3.05L, Hemoglobin 8.7L, Hematocrit 26.3L , Mean Corpuscular Volume 86, Mean Corpuscular Hemoglobin 28.5, Mean Corpuscular Hemoglobin Concent 33.2, Red Cell Distribution Width 13.0, Platelet Count 288, Mean Platelet Volume 5.5L, Neutrophils (%) (Auto) 69.2, Lymphocytes ( %) (Auto) 21.2, Monocytes (%) (Auto) 7.8, Eosinophils (%) (Auto) 1.4, Basophils (%) (Auto) 0.5, Sodium Level 130L, Potassium Level 3.7, Chloride Level 98, Carbon Dioxide Level 27, Anion Gap 5, Blood Urea Nitrogen 6L, Creatinine 0.5L, Estimat Glomerular Filtration Rate > 60, Glucose Level 112H, Calcium Level 8.1L Height (Feet): 5 Height (Inches): 7.00 Weight (Pounds): 159 Objective GENERAL: Alert, awake, and oriented. LUNGS: Decreased breath sounds bilaterally. HEART: S1 S2 Regular. ABDOMEN: Benign. EXTREMITIES: No cyanosis. No clubbing. No edema. NEURO: No changes. Mark Rausch Aug 30, 2017 13:12
--- NOTE | 2017-08-30 14:56 | Infectious Diseases Prog Note ---
Assessment/Plan Assessment/Plan ASSESSMENT: 1. The patient is a 56-year-old male with multiple medical problems, who has recent empyema/bacteremia due to methicillin-sensitive Staphylococcus aureus ( Signed off AMA on 08/18/17 and had incomplete treatment; only 10 day of 42) -CT chest 08/25: Increased size of loculated right pleural effusion. Small air in the pleural space. Smaller residual left loculated pleural fluid with small air. Small to moderate fluid collection now in the left fissure. Bilateral lower lobe atelectasis/consolidations and air space disease,similar. -s/p VATS, partial pleurectomy, decortication 08/14 -OR findings : Bronchoscopy: A minimal amount of mucopurulent secretion was lavaged and suctioned clear. No endobronchial lesions. -VATS: There were noted to be numerous adhesions tethering along to the surrounding chest wall. The disease appears to be localized in the left lower lobe as the left upper lobe was virtually spared. - OR cx MSSA -CT chest 08/10: Left pleural effusion. Scalloped appearance suggests loculation. Presence of gas bubbles suggest infection by gas-forming organism. Gas bubbles appear trapped within the fluid rather than floating nondependently , indicating the fluid may be highly viscous. - -08/07 Bcx 4/4 MSSA; 08/08 4/4+; 08/10 2/4 +; 08/11 2/4+; 08/13 Neg x4; Bcx 08/27 NTDx4 -08/28 ESR 126 <86 (08/10), CRP 12 < 27 (08/09) 2. Mild leukocytosis, resolved 3. Low grade fever, intermittent 4. Probable endocarditis (NURA was not done). 5. Thoracic Discitis/Osteomyelitis and epidural abscess T7-T10- causing spinal cord compression; Possible Cervical spodylodiscitis w/ cord compression > Quadriparesis -MRI Cervical spine: Disc narrowing at C5-6. Marrow edema of the adjacent C5 and C6 vertebral bodies is noted. This is most likely due to Modic type I degenerative change and reactive marrow edema, particularly given the absence of edema within the disc. However, the possibility of spondylodiscitis as etiology of this finding, particularly in view of recent diagnosis of thoracic epidural abscess and in view of the slight degree of surrounding soft tissue edema, should also be considered. Severe spinal stenosis with cord compression at multiple levels extending from C3-4 through C5-6. Minimum AP dimension of the spinal canal 5 mm. Due to image degradation, it is uncertain as to whether there is significant cord edema/myelomalacia present. Multilevel severe neural foraminal stenosis as detailed level by level basis above -MRI Thoracic Spine: Suspicion of cord compression T7-T10 secondary to a posterior epidural abscess versus mass. Abscess favored given suspicion of spondylodiscitis at T9-10 as well as bilateral pleural effusions and pneumonia ( recent diagnosed on CT chest). Significantly limited study due to motion. -MRI Lumbar spine: Evidence of T9-10 discitis/osteomyelitis. Suspect related to previously described adjacent bilateral pleural empyemas. Evidence of epidural abscess measuring at least 8 x 11 mm in diameter, and extending at least 5 cm craniocaudad, at and above the T9 level. This results in significant spinal stenosis. Note that it is incompletely included in the imaging volume, and the cephalad extent above mid T7 is unclear. Recommend thoracic MRI for further evaluation. As mentioned above, evidence of bilateral empyemas, with bilateral loculated pleural fluid collections and extensive enhancement and edema of the adjacent soft tissue. Extensive multilevel degenerative changes elsewhere, as detailed on a level by level basis above Polysubstance abuse- refers last IVDA was ~7 yrs ago -UDS (prior admission) +THC, cocaine and amphetamines HIV - non progressor- per patient, never on Tx and CD4 >500 and UD VL -07/2017 CD4 510 (39.2%), VL ND Hep C s/p tx (20 years ago) with sustained virologic response COPD/asthma tobacco abuse (stopped smoking 3d [employer]) PLAN: -. The patient is on oxacillin day #-56 (the patient received 11 days of treatment prior to discharge). -monitor LFTs -08/25 SP IV Vanco and Cefepme #2 -/ SP IV Oxacillin #9 -08/10 SP Ceftriaxone d# 5 and IV Vancomycin #3 -08/06 SP Cefepime x1, Levaquin x1 -. Monitor CBC/CMP, temperatures -. Monitor cultures (Bcx) -NEEDS EMERGENT transfer to tertiary hospital for neurosurgical evaluation for epidural abscess and thoracic discitis and OM as it causing spinal cord compression -awaiting transfer, expected to [facility] -Needs also further chest drainage; currently refusing -will also need NURA to eval for endocarditis/valvular abscess -repeat Bcx x2 Discussed with RN and rn case manager hospice who will initiate transfers requests. Subjective Allergies: Coded Allergies: No Known Allergies (Unverified , 08/06/17) Subjective Tm 100.7;afebrile in ~24hrs Bcx NTD awaiting tranfer to [facility] Objective Vital Signs Last 24 Hour Vital Signs Date Time Temp Pulse Resp B/P (MAP) Pulse Ox O2 Delivery O2 Flow Rate FiO2 08/30/17 14:17 97.8 08/30/17 12:00 97.8 81 22 121/67 (85) 93 97.8 08/30/17 09:00 Room Air 08/30/17 08:00 98.0 88 23 129/73 (91) 93 98.0 08/30/17 08:00 86 20 Room Air 21 08/30/17 04:00 98.2 84 19 122/82 (95) 92 98.2 08/30/17 00:00 99.0 91 19 117/74 (88) 93 99.0 08/29/17 21:00 Room Air 08/29/17 20:00 98.7 102 19 134/80 (98) 92 98.7 08/29/17 20:00 89 20 Room Air 21 08/29/17 17:48 98.3 08/29/17 17:18 98.3 08/29/17 16:00 100.7 93 27 127/73 (91) 92 100.7 Height (Feet): 5 Height (Inches): 7.00 Weight (Pounds): 159 Objective HEENT: No pale conjunctivae. No icterus. NECK: No lymphadenopathy. CHEST: Clear. Incision site is healing. HEART: S1 and S2. ABDOMEN: Soft and nontender. BACK: The patient has tenderness in the lower thoracic and lumbar area. EXTREMITIES: No cyanosis. NEUROLOGIC: Awake and alert. +Babinski, brisk reflexes, LE>UE weakness. no sensory deficits Laboratory Tests Test 08/30/17 06:25 White Blood Count 7.4 K/UL (4.8-10.8) Red Blood Count 3.05 M/UL (4.70-6.10) L Hemoglobin 8.7 G/DL (14.2-18.0) L Hematocrit 26.3 % (42.0-52.0) L Mean Corpuscular Volume 86 FL (80-99) Mean Corpuscular Hemoglobin 28.5 PG (27.0-31.0) Mean Corpuscular Hemoglobin Concent 33.2 G/DL (32.0-36.0) Red Cell Distribution Width 13.0 % (11.6-14.8) Platelet Count 288 K/UL (150-450) Mean Platelet Volume 5.5 FL (6.5-10.1) L Neutrophils (%) (Auto) 69.2 % (45.0-75.0) Lymphocytes (%) (Auto) 21.2 % (20.0-45.0) Monocytes (%) (Auto) 7.8 % (1.0-10.0) Eosinophils (%) (Auto) 1.4 % (0.0-3.0) Basophils (%) (Auto) 0.5 % (0.0-2.0) Sodium Level 130 MMOL/L (136-145) L Potassium Level 3.7 MMOL/L (3.5-5.1) Chloride Level 98 MMOL/L (98-107) Carbon Dioxide Level 27 MMOL/L (21-32) Anion Gap 5 mmol/L (5-15) Blood Urea Nitrogen 6 mg/dL (7-18) L Creatinine 0.5 MG/DL (0.55-1.30) L Estimat Glomerular Filtration Rate > 60 mL/min (>60) Glucose Level 112 MG/DL (74-106) H Calcium Level 8.1 MG/DL (8.5-10.1) L Current Medications Medications (Trade) Dose Ordered Sig/Veronica Route PRN Reason Start Time Stop Time Status Last Admin Dose Admin Acetaminophen (Tylenol) 650 mg Q4H PRN ORAL FEVER 08/25/17 08:15 09/24/17 08:14 08/27/17 13:06 Acetaminophen/ Hydrocodone Bitart ([place] 10/325) 1 tab Q6H PRN ORAL moderate pain 08/28/17 08:45 09/02/17 12:13 08/30/17 13:12 Chlorhexidine Gluconate (Nishi-Hex 2%) 1 applic DAILY@1999 TOPIC 08/29/17 20:00 09/28/17 19:59 08/29/17 20:28 Dextrose (Dextrose 50%) 25 ml STAT PRN IV Hypoglycemia 08/25/17 08:15 09/24/17 08:14 Dextrose (Dextrose 50%) 50 ml STAT PRN IV Hypoglycemia 08/25/17 08:30 09/24/17 08:29 Docusate Sodium (Colace) 100 mg THREE TIMES A DAY ORAL 08/30/17 13:00 09/29/17 12:59 08/30/17 13:11 Duloxetine HCl (Cymbalta) 30 mg DAILY ORAL 08/25/17 09:00 09/24/17 08:59 08/30/17 09:37 Gabapentin (Neurontin) 300 mg THREE TIMES A DAY ORAL 08/25/17 09:00 09/24/17 08:59 08/30/17 13:11 Heparin Sodium (Porcine) (Heparin 5000 units/ml) 5,000 units EVERY 12 HOURS SUBQ 08/25/17 09:00 09/24/17 08:59 08/30/17 09:38 Heparin Sodium/ Sodium Chloride (Heparin 2000 units/Ns 1000ml premix) 2,000 unit ONCE PRN INJ PICC PLACEMENT 08/29/17 14:30 08/30/17 23:59 Hydromorphone HCl (Dilaudid) 1 mg Q4H PRN IVP severe pain 08/28/17 08:45 09/04/17 08:44 08/30/17 14:17 Lidocaine HCl (Xylocaine 1% 30ml) 30 ml ONCE PRN INJ PICC PLACEMENT 08/29/17 14:30 08/30/17 23:59 Lorazepam (Ativan 2mg/ml 1ml) 2 mg EVERY 2 HOURS PRN IV For Anxiety 08/25/17 08:30 09/01/17 08:14 08/28/17 10:06 Lorazepam (Ativan) 1 mg Q6H PRN ORAL For Anxiety 08/25/17 04:30 09/01/17 04:29 08/30/17 00:29 Ondansetron HCl (Zofran) 4 mg Q6H PRN IVP Nausea & Vomiting 08/25/17 08:15 09/24/17 08:14 Oxacillin Sodium 2 gm/Sodium Chloride 110 ml @ 220 mls/hr Q4HR IVPB 08/25/17 21:00 09/01/17 20:59 08/30/17 13:12 Polyethylene Glycol (Miralax) 17 gm DAILYPRN PRN ORAL Constipation 08/25/17 08:15 09/24/17 08:14 08/28/17 09:04 Sodium Chloride 1,000 ml @ 50 mls/hr Q20H IV 08/26/17 13:45 09/25/17 13:44 08/29/17 21:29 Steph Crowder M.D. Aug 30, 2017 14:55
[2017-08-30 16:00] VITALS: BP 137/83
--- NOTE | 2017-08-30 16:11 | General Progress Note ---
Assessment/Plan Problem List: (1) Chronic pain ICD Codes: G89.29 - Other chronic pain SNOMED: 51815468 (2) Hypokalemia ICD Codes: E87.6 - Hypokalemia SNOMED: 81785524 (3) HIV (human immunodeficiency virus infection) ICD Codes: B20 - Human immunodeficiency virus [HIV] disease SNOMED: 06034232 (4) Sepsis ICD Codes: A41.9 - Sepsis, unspecified organism SNOMED: 27052239 Qualifiers: Qualified Codes: A41.9 - Sepsis, unspecified organism (5) Empyema ICD Codes: J86.9 - Pyothorax without fistula SNOMED: 735827099 (6) Drug abuse and dependence ICD Codes: F19.20 - Other psychoactive substance dependence, uncomplicated SNOMED: 0306828 (7) Epidural abscess ICD Codes: G06.2 - Extradural and subdural abscess, unspecified SNOMED: 67390551 Status: unchanged Assessment/Plan ot pt diet abx neph f/u cbc bmp am higher level care prn Subjective Constitutional: Reports: weakness Allergies: Coded Allergies: No Known Allergies (Unverified , 08/06/17) All Systems: reviewed and negative except above Subjective sleepy calm Objective Last 24 Hour Vital Signs Date Time Temp Pulse Resp B/P (MAP) Pulse Ox O2 Delivery O2 Flow Rate FiO2 08/30/17 14:47 97.8 08/30/17 14:17 97.8 08/30/17 12:00 97.8 81 22 121/67 (85) 93 97.8 08/30/17 09:00 Room Air 08/30/17 08:00 98.0 88 23 129/73 (91) 93 98.0 08/30/17 08:00 86 20 Room Air 21 08/30/17 04:00 98.2 84 19 122/82 (95) 92 98.2 08/30/17 00:00 99.0 91 19 117/74 (88) 93 99.0 08/29/17 21:00 Room Air 08/29/17 20:00 98.7 102 19 134/80 (98) 92 98.7 08/29/17 20:00 89 20 Room Air 21 08/29/17 17:18 98.3 Intake and Output 08/29/17 08/30/17 19:00 07:00 Intake Total 1645 ml 1000 ml Output Total 1000 ml 1350 ml Balance 645 ml -350 ml Intake Oral 800 ml 450 ml IV Total 845 ml 550 ml Output Urine Total 1000 ml 1350 ml Laboratory Tests 08/30/17 06:25: White Blood Count 7.4, Red Blood Count 3.05L, Hemoglobin 8.7L, Hematocrit 26.3L , Mean Corpuscular Volume 86, Mean Corpuscular Hemoglobin 28.5, Mean Corpuscular Hemoglobin Concent 33.2, Red Cell Distribution Width 13.0, Platelet Count 288, Mean Platelet Volume 5.5L, Neutrophils (%) (Auto) 69.2, Lymphocytes ( %) (Auto) 21.2, Monocytes (%) (Auto) 7.8, Eosinophils (%) (Auto) 1.4, Basophils (%) (Auto) 0.5, Sodium Level 130L, Potassium Level 3.7, Chloride Level 98, Carbon Dioxide Level 27, Anion Gap 5, Blood Urea Nitrogen 6L, Creatinine 0.5L, Estimat Glomerular Filtration Rate > 60, Glucose Level 112H, Calcium Level 8.1L Height (Feet): 5 Height (Inches): 7.00 Weight (Pounds): 159 General Appearance: lethargic EENT: normal ENT inspection Neck: normal alignment Cardiovascular: normal peripheral pulses, normal rate, regular rhythm Respiratory/Chest: chest wall non-tender, lungs clear, normal breath sounds Abdomen: normal bowel sounds, non tender, soft Extremities: normal inspection Edema: no edema noted Arm (L), no edema noted Arm (R), no edema noted Leg (L), no edema noted Leg (R), no edema noted Pedal (L), no edema noted Pedal (R), no edema noted Generalized Neurologic: motor weakness Skin: normal pigmentation, warm/dry Chemo Dietrich DO Aug 30, 2017 16:11
[2017-08-30 20:00] VITALS: BP 121/67
[2017-08-30] MEDS: Dyna-Hex 2% Top Sol 2oz TOPIC SCH (20:51)
--- NOTE | 2017-08-30 23:46 | Cardiology Progress Note ---
Assessment/Plan Assessment/Plan 1, Bacteremia, refusing NURA, continue ABx therapy 2. Transinet diskitis Subjective Subjective No cardiac events. Denies chest pain or SOB. Objective Last 24 Hour Vital Signs Date Time Temp Pulse Resp B/P (MAP) Pulse Ox O2 Delivery O2 Flow Rate FiO2 08/30/17 21:00 Room Air 08/30/17 20:00 98.4 88 24 121/67 (85) 93 98.4 08/30/17 18:27 96.1 08/30/17 16:00 96.1 84 24 137/83 (101) 90 96.1 08/30/17 14:47 97.8 08/30/17 14:17 97.8 08/30/17 12:00 97.8 81 22 121/67 (85) 93 97.8 08/30/17 09:00 Room Air 08/30/17 08:00 98.0 88 23 129/73 (91) 93 98.0 08/30/17 08:00 86 20 Room Air 21 08/30/17 04:00 98.2 84 19 122/82 (95) 92 98.2 08/30/17 00:00 99.0 91 19 117/74 (88) 93 99.0 Intake and Output 08/29/17 08/30/17 19:00 07:00 Intake Total 1645 ml 1000 ml Output Total 1000 ml 1350 ml Balance 645 ml -350 ml Intake Oral 800 ml 450 ml IV Total 845 ml 550 ml Output Urine Total 1000 ml 1350 ml 2D Echo: HEENT: No pale conjunctivae. No icterus. Laboratory Tests Test 08/30/17 06:25 White Blood Count 7.4 K/UL (4.8-10.8) Red Blood Count 3.05 M/UL (4.70-6.10) L Hemoglobin 8.7 G/DL (14.2-18.0) L Hematocrit 26.3 % (42.0-52.0) L Mean Corpuscular Volume 86 FL (80-99) Mean Corpuscular Hemoglobin 28.5 PG (27.0-31.0) Mean Corpuscular Hemoglobin Concent 33.2 G/DL (32.0-36.0) Red Cell Distribution Width 13.0 % (11.6-14.8) Platelet Count 288 K/UL (150-450) Mean Platelet Volume 5.5 FL (6.5-10.1) L Neutrophils (%) (Auto) 69.2 % (45.0-75.0) Lymphocytes (%) (Auto) 21.2 % (20.0-45.0) Monocytes (%) (Auto) 7.8 % (1.0-10.0) Eosinophils (%) (Auto) 1.4 % (0.0-3.0) Basophils (%) (Auto) 0.5 % (0.0-2.0) Sodium Level 130 MMOL/L (136-145) L Potassium Level 3.7 MMOL/L (3.5-5.1) Chloride Level 98 MMOL/L (98-107) Carbon Dioxide Level 27 MMOL/L (21-32) Anion Gap 5 mmol/L (5-15) Blood Urea Nitrogen 6 mg/dL (7-18) L Creatinine 0.5 MG/DL (0.55-1.30) L Estimat Glomerular Filtration Rate > 60 mL/min (>60) Glucose Level 112 MG/DL (74-106) H Calcium Level 8.1 MG/DL (8.5-10.1) L Objective HEENT: Normocephali, atraumatic, No pale conjunctivae. No icterus. NECK: No JVD, no carotid bruit. CHEST: Normal S1S2,. Incision site is healing. HEART: Normal S1 and S2, no murmurs, gallops or rubs. ABDOMEN: Soft and nontender, no hepatosplenomegaly, + BS. BACK: The patient has tenderness in the lower thoracic and lumbar area. EXTREMITIES: No edema , clubbing or cyanosis. Omid Tellez MD Aug 30, 2017 23:46
[2017-08-31] VITALS: BP 111/69
[2017-08-31] MEDS: Oxacillin 2 GM in NS 110 ML IVPB SCH ×6 (01:08→22:20)
--- NOTE | 2017-08-31 02:00 | Consultation ---
DATE OF CONSULTATION: 08/28/2017 CARDIOLOGY CONSULTATION CONSULTING PHYSICIAN: Omid Tellez M.D. REASON FOR CONSULTATION: Evaluation for transesophageal echocardiography in the patient with bacteremia. HISTORY OF PRESENT ILLNESS: The patient is a very unfortunate 56-year-old gentleman, who was recently admitted with sepsis and bacteremia from MSSA secondary to empyema of his left lung and received IV antibiotics and underwent thoracentesis. He signed against medical advice. The patient called 911 because of severe weakness and pain. He was found in the bathtub, unable to tolerate weight, and was brought in back to [facility]. He was admitted to the hospital for severe low back pain as well as fever and chills. In the course of this hospitalization, the patient was found to have an epidural sepsis and thoracic discitis with osteomyelitis. Infectious Disease inquired about, was evaluated with MRI of lumbar spine, which showed evidence of T9 and T10 discitis and osteomyelitis and evidence of epidural abscess. Possibility of endocarditis was brought up by Infectious Disease, who demanded transesophageal echocardiography. At the bedside, the patient is a poor historian and does not seem to be cooperating with physical examination and history taking. PAST MEDICAL HISTORY: 1. History of MSSA bacteremia/empyema. 2. Recent sepsis. 3. History of polysubstance abuse in the past. 4. HIV. 5. Hepatitis C virus infection, status post treatment. 6. History of chronic obstructive pulmonary disease/asthma. MEDICATIONS: Outpatient including hydrocodone and acetaminophen 5/325 mg one q.4 h. p.r.n. pain. ALLERGIES: No known drug allergies. SOCIAL HISTORY: History of tobacco abuse, polysubstance abuse in the past including IV drug use. FAMILY HISTORY: No premature coronary artery disease in the first-degree relatives. REVIEW OF SYSTEMS: HEENT: Denies any headache, diplopia, or blurred vision. CONSTITUTIONAL: He has complaints of fever, chills, generalized weakness, and night sweats. CARDIOVASCULAR: Denies any chest pain, although he has complained of left-sided posterior chest wall pain and no shortness of breath, PND, orthopnea, or leg swelling. PULMONARY: Denies any cough, hemoptysis, or wheezing. GASTROINTESTINAL: Denies any nausea, vomiting, diarrhea, constipation, abdominal pain, or GI bleed. GENITOURINARY: Denies any hematuria, dysuria, and incontinence. NEUROLOGIC: Denies any motor dysfunction, sensory deficit, or altered speech. MUSCULOSKELETAL: Complains of back pain. PHYSICAL EXAMINATION: VITAL SIGNS: Blood pressure was 125/71, pulse of 86, respiration of 18, and temperature 97.0 degrees Fahrenheit. GENERAL: The patient is a very unfortunate 56-year-old gentleman, in no apparent respiratory distress. HEENT: Atraumatic and normocephalic. Anicteric. Pupils are equal, round, and reactive to light and accommodation. Extraocular muscles intact. NECK: JVP less than 5 cm. No carotid bruits. Carotid upstrokes 2+. CARDIOVASCULAR: Normal S1 and S2. Regular rate and rhythm. No murmurs, gallops, or rubs. PMI is at fourth intercostal space at the midclavicular line. LUNGS: Clear to auscultation bilaterally. ABDOMEN: Soft, nontender, and nondistended. No hepatosplenomegaly. Positive bowel sounds. EXTREMITIES: No evidence of edema, clubbing, or cyanosis. There is tenderness in the lower thoracic and lumbar area. LABORATORY FINDINGS: A chest x-ray showed no acute cardiopulmonary disease. Blood tests today shows WBC 5.5, hemoglobin 8.8, hematocrit 25.8, and platelet count 262. Sodium 131, potassium is 3.5, chloride 96, bicarbonate 27, BUN 7, creatinine 0.7, glucose 145, and calcium is 8.3. Troponin I on arrival to the hospital 0.017. ASSESSMENT AND PLAN: The patient is a very unfortunate 56-year-old gentleman, seen in Cardiology consultation at request of Dr. Dietrich. 1. Thoracic discitis/osteomyelitis and epidural abscess, possible endocarditis. The patient was explained the benefits of transesophageal echocardiography in determining valvular vegetations or infective endocarditis. However, at this time, he is reluctant to proceed with this procedure. We will continue with recommendation of Infectious Disease specialist in regards to the duration of the therapy. 2. Bilateral pleural effusion, status post VATS, status post partial pleurectomy and decortication. 3. Thoracic discitis/osteomyelitis and epidural abscess from T7 through T10 leading to severe spinal stenosis and cord compression. 4. History of HIV. 5. History of polysubstance abuse. 6. History of hepatitis C virus infection. 7. History of sinus tachycardia likely due to sepsis. I would like to thank, Dr. Dietrich, for allowing me to participate in the care of this patient. Omid Tellez M.D. DR: GAMA JOB#: [id number] CC:
[2017-08-31 04:00] VITALS: BP 127/75
[2017-08-31] MEDS: HYDROmorphone 1mg/ml Carpuject IVP PRN ×5 (04:42→22:20)
[2017-08-31 07:13] LABS: BASOPHILS % (AUTO) 0.6 % (0.0-2.0); EOSINOPHILS % (AUTO) 0.6 % (0.0-3.0); HEMATOCRIT 25.5 % (42.0-52.0); HEMOGLOBIN 8.5 G/DL (14.2-18.0); LYMPHOCYTES % (AUTO) 17.9 % (20.0-45.0); MEAN CORPUSCULAR VOLUME 86 FL (80-99); MONOCYTES % (AUTO) 6.5 % (1.0-10.0); NEUTROPHILS % (AUTO) 74.5 % (45.0-75.0); PLATELET COUNT 270 K/UL (150-450); RED BLOOD COUNT 2.95 M/UL (4.70-6.10)
[2017-08-31 07:23] LABS: ANION GAP 5 mmol/L (5-15); BLOOD UREA NITROGEN 5 mg/dL (7-18); CALCIUM 7.8 MG/DL (8.5-10.1); CARBON DIOXIDE 28 MMOL/L (21-32); CHLORIDE 99 MMOL/L (98-107); CREATININE 0.5 MG/DL (0.55-1.30); POTASSIUM 3.9 MMOL/L (3.5-5.1); SODIUM 132 MMOL/L (136-145)
[2017-08-31 08:00] VITALS: BP 127/68
[2017-08-31] MEDS: Docusate 100mg cap ORAL SCH ×3 (08:29→17:07)
[2017-08-31] MEDS: HYDROcodone/Acetamin 10/325 tab ORAL PRN ×2 (08:29→17:09)
[2017-08-31] MEDS: Heparin 5000 units/ml inj SUBQ SCH ×2 (08:33→22:21)
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
[2017-08-31] MEDS: DULoxetine 30mg cap ORAL SCH (10:19)
--- NOTE | 2017-08-31 10:31 | Infectious Diseases Prog Note ---
Assessment/Plan Assessment/Plan ASSESSMENT: 1. The patient is a 56-year-old male with multiple medical problems, who has recent empyema/bacteremia due to methicillin-sensitive Staphylococcus aureus ( Signed off AMA on 08/18/17 and had incomplete treatment; only 10 day of 42) -CT chest 08/25: Increased size of loculated right pleural effusion. Small air in the pleural space. Smaller residual left loculated pleural fluid with small air. Small to moderate fluid collection now in the left fissure. Bilateral lower lobe atelectasis/consolidations and air space disease,similar. -s/p VATS, partial pleurectomy, decortication 08/14 -OR findings : Bronchoscopy: A minimal amount of mucopurulent secretion was lavaged and suctioned clear. No endobronchial lesions. -VATS: There were noted to be numerous adhesions tethering along to the surrounding chest wall. The disease appears to be localized in the left lower lobe as the left upper lobe was virtually spared. - OR cx MSSA -CT chest 08/10: Left pleural effusion. Scalloped appearance suggests loculation. Presence of gas bubbles suggest infection by gas-forming organism. Gas bubbles appear trapped within the fluid rather than floating nondependently , indicating the fluid may be highly viscous. - -08/07 Bcx 4/4 MSSA; 08/08 4/4+; 08/10 2/4 +; 08/11 2/4+; 08/13 Neg x4; Bcx 08/27 NTDx4 -08/28 ESR 126 <86 (08/10), CRP 12 < 27 (08/09) 2. Mild leukocytosis, resolved 3. Low grade fever, intermittent 4. Probable endocarditis (NURA was not done). 5. Thoracic Discitis/Osteomyelitis and epidural abscess T7-T10- causing spinal cord compression; Possible Cervical spodylodiscitis w/ cord compression > Quadriparesis -MRI Cervical spine: Disc narrowing at C5-6. Marrow edema of the adjacent C5 and C6 vertebral bodies is noted. This is most likely due to Modic type I degenerative change and reactive marrow edema, particularly given the absence of edema within the disc. However, the possibility of spondylodiscitis as etiology of this finding, particularly in view of recent diagnosis of thoracic epidural abscess and in view of the slight degree of surrounding soft tissue edema, should also be considered. Severe spinal stenosis with cord compression at multiple levels extending from C3-4 through C5-6. Minimum AP dimension of the spinal canal 5 mm. Due to image degradation, it is uncertain as to whether there is significant cord edema/myelomalacia present. Multilevel severe neural foraminal stenosis as detailed level by level basis above -MRI Thoracic Spine: Suspicion of cord compression T7-T10 secondary to a posterior epidural abscess versus mass. Abscess favored given suspicion of spondylodiscitis at T9-10 as well as bilateral pleural effusions and pneumonia ( recent diagnosed on CT chest). Significantly limited study due to motion. -MRI Lumbar spine: Evidence of T9-10 discitis/osteomyelitis. Suspect related to previously described adjacent bilateral pleural empyemas. Evidence of epidural abscess measuring at least 8 x 11 mm in diameter, and extending at least 5 cm craniocaudad, at and above the T9 level. This results in significant spinal stenosis. Note that it is incompletely included in the imaging volume, and the cephalad extent above mid T7 is unclear. Recommend thoracic MRI for further evaluation. As mentioned above, evidence of bilateral empyemas, with bilateral loculated pleural fluid collections and extensive enhancement and edema of the adjacent soft tissue. Extensive multilevel degenerative changes elsewhere, as detailed on a level by level basis above Polysubstance abuse- refers last IVDA was ~7 yrs ago -UDS (prior admission) +THC, cocaine and amphetamines HIV - non progressor- per patient, never on Tx and CD4 >500 and UD VL -07/2017 CD4 510 (39.2%), VL ND Hep C s/p tx (20 years ago) with sustained virologic response COPD/asthma tobacco abuse (stopped smoking 3d [employer]) PLAN: -. The patient is on oxacillin day #42-56 (the patient received 11 days of treatment prior to discharge). -monitor LFTs -08/25 SP IV Vanco and Cefepme #2 -08/18 SP IV Oxacillin #9 -08/10 SP Ceftriaxone d# 5 and IV Vancomycin #3 -08/06 SP Cefepime x1, Levaquin x1 -. Monitor CBC/CMP, temperatures -. Monitor cultures (Bcx) -NEEDS EMERGENT transfer to tertiary hospital for neurosurgical evaluation for epidural abscess and thoracic discitis and OM as it causing spinal cord compression -awaiting transfer -Needs also further chest drainage; currently refusing -will also need NURA to eval for endocarditis/valvular abscess -f/u repeat Bcx x2 Discussed with RN and case managern again for f/u ([facility] denied, now awaiting [facility] Givens) Subjective Allergies: Coded Allergies: No Known Allergies (Unverified , 08/06/17) Subjective ;afebrile in >36hrs Bcx NTD awaiting tranfer to higher level of care Objective Vital Signs Last 24 Hour Vital Signs Date Time Temp Pulse Resp B/P (MAP) Pulse Ox O2 Delivery O2 Flow Rate FiO2 08/31/17 09:28 95.7 08/31/17 08:29 95.7 08/31/17 04:00 97.6 78 22 127/75 (92) 93 97.6 08/31/17 00:00 97.7 80 22 111/69 (83) 92 97.7 08/30/17 21:00 Room Air 08/30/17 20:00 98.4 88 24 121/67 (85) 93 98.4 08/30/17 18:27 96.1 08/30/17 16:00 96.1 84 24 137/83 (101) 90 96.1 08/30/17 14:47 97.8 08/30/17 14:17 97.8 08/30/17 12:00 97.8 81 22 121/67 (85) 93 97.8 Height (Feet): 5 Height (Inches): 7.00 Weight (Pounds): 159 Objective HEENT: No pale conjunctivae. No icterus. NECK: No lymphadenopathy. CHEST: Clear. Incision site is healing. HEART: S1 and S2. ABDOMEN: Soft and nontender. BACK: The patient has tenderness in the lower thoracic and lumbar area. EXTREMITIES: No cyanosis. NEUROLOGIC: Awake and alert. +Babinski, brisk reflexes, LE>UE weakness. no sensory deficits Laboratory Tests Test 08/31/17 04:20 08/31/17 06:00 Stool Occult Blood Pending White Blood Count 7.0 K/UL (4.8-10.8) Red Blood Count 2.95 M/UL (4.70-6.10) L Hemoglobin 8.5 G/DL (14.2-18.0) L Hematocrit 25.5 % (42.0-52.0) L Mean Corpuscular Volume 86 FL (80-99) Mean Corpuscular Hemoglobin 28.8 PG (27.0-31.0) Mean Corpuscular Hemoglobin Concent 33.3 G/DL (32.0-36.0) Red Cell Distribution Width 13.0 % (11.6-14.8) Platelet Count 270 K/UL (150-450) Mean Platelet Volume 5.6 FL (6.5-10.1) L Neutrophils (%) (Auto) 74.5 % (45.0-75.0) Lymphocytes (%) (Auto) 17.9 % (20.0-45.0) L Monocytes (%) (Auto) 6.5 % (1.0-10.0) Eosinophils (%) (Auto) 0.6 % (0.0-3.0) Basophils (%) (Auto) 0.6 % (0.0-2.0) Sodium Level 132 MMOL/L (136-145) L Potassium Level 3.9 MMOL/L (3.5-5.1) Chloride Level 99 MMOL/L (98-107) Carbon Dioxide Level 28 MMOL/L (21-32) Anion Gap 5 mmol/L (5-15) Blood Urea Nitrogen 5 mg/dL (7-18) L Creatinine 0.5 MG/DL (0.55-1.30) L Estimat Glomerular Filtration Rate > 60 mL/min (>60) Glucose Level 123 MG/DL (74-106) H Calcium Level 7.8 MG/DL (8.5-10.1) L Current Medications Medications (Trade) Dose Ordered Sig/Veronica Route PRN Reason Start Time Stop Time Status Last Admin Dose Admin Acetaminophen (Tylenol) 650 mg Q4H PRN ORAL FEVER 08/25/17 08:15 09/24/17 08:14 08/27/17 13:06 Acetaminophen/ Hydrocodone Bitart ([place] 10/325) 1 tab Q6H PRN ORAL moderate pain 08/28/17 08:45 09/02/17 12:13 08/31/17 08:29 Chlorhexidine Gluconate (Nishi-Hex 2%) 1 applic DAILY@1999 TOPIC 08/29/17 20:00 09/28/17 19:59 08/30/17 20:51 Dextrose (Dextrose 50%) 25 ml STAT PRN IV Hypoglycemia 08/25/17 08:15 09/24/17 08:14 Dextrose (Dextrose 50%) 50 ml STAT PRN IV Hypoglycemia 08/25/17 08:30 09/24/17 08:29 Docusate Sodium (Colace) 100 mg THREE TIMES A DAY ORAL 08/30/17 13:00 09/29/17 12:59 08/31/17 08:29 Duloxetine HCl (Cymbalta) 30 mg DAILY ORAL 08/25/17 09:00 09/24/17 08:59 08/30/17 09:37 Gabapentin (Neurontin) 300 mg THREE TIMES A DAY ORAL 08/25/17 09:00 09/24/17 08:59 08/31/17 08:29 Heparin Sodium (Porcine) (Heparin 5000 units/ml) 5,000 units EVERY 12 HOURS SUBQ 08/25/17 09:00 09/24/17 08:59 08/31/17 08:33 Hydromorphone HCl (Dilaudid) 1 mg Q4H PRN IVP severe pain 08/28/17 08:45 09/04/17 08:44 08/31/17 04:42 Lorazepam (Ativan 2mg/ml 1ml) 2 mg EVERY 2 HOURS PRN IV For Anxiety 08/25/17 08:30 09/01/17 08:14 08/28/17 10:06 Lorazepam (Ativan) 1 mg Q6H PRN ORAL For Anxiety 08/25/17 04:30 09/01/17 04:29 08/30/17 00:29 Ondansetron HCl (Zofran) 4 mg Q6H PRN IVP Nausea & Vomiting 08/25/17 08:15 09/24/17 08:14 Oxacillin Sodium 2 gm/Sodium Chloride 110 ml @ 220 mls/hr Q4HR IVPB 08/25/17 21:00 09/01/17 20:59 08/31/17 08:30 Polyethylene Glycol (Miralax) 17 gm DAILYPRN PRN ORAL Constipation 08/25/17 08:15 09/24/17 08:14 08/28/17 09:04 Sodium Chloride 1,000 ml @ 50 mls/hr Q20H IV 08/26/17 13:45 09/25/17 13:44 08/30/17 18:39 Steph Crowder M.D. 20, 2018 10:31
[2017-08-31 12:00] VITALS: BP 119/71
--- NOTE | 2017-08-31 12:06 | General Progress Note ---
Assessment/Plan Problem List: (1) Chronic pain ICD Codes: G89.29 - Other chronic pain SNOMED: 17858132 (2) Hypokalemia ICD Codes: E87.6 - Hypokalemia SNOMED: 14997603 (3) HIV (human immunodeficiency virus infection) ICD Codes: B20 - Human immunodeficiency virus [HIV] disease SNOMED: 71292391 (4) Sepsis ICD Codes: A41.9 - Sepsis, unspecified organism SNOMED: 09474897 Qualifiers: Qualified Codes: A41.9 - Sepsis, unspecified organism (5) Empyema ICD Codes: J86.9 - Pyothorax without fistula SNOMED: 143025034 (6) Drug abuse and dependence ICD Codes: F19.20 - Other psychoactive substance dependence, uncomplicated SNOMED: 3768796 (7) Epidural abscess ICD Codes: G06.2 - Extradural and subdural abscess, unspecified SNOMED: 76348911 Status: unchanged Assessment/Plan ot pt diet abx neph f/u cbc bmp am higher level care prn Subjective Constitutional: Reports: weakness Allergies: Coded Allergies: No Known Allergies (Unverified , 08/06/17) All Systems: reviewed and negative except above Subjective sleepy calm Objective Last 24 Hour Vital Signs Date Time Temp Pulse Resp B/P (MAP) Pulse Ox O2 Delivery O2 Flow Rate FiO2 08/31/17 10:49 95.7 08/31/17 10:19 95.7 08/31/17 09:28 95.7 08/31/17 09:00 Room Air 08/31/17 08:29 95.7 08/31/17 08:00 95.7 84 20 127/68 (87) 92 95.7 08/31/17 04:00 97.6 78 22 127/75 (92) 93 97.6 08/31/17 00:00 97.7 80 22 111/69 (83) 92 97.7 08/30/17 21:00 Room Air 08/30/17 20:00 98.4 88 24 121/67 (85) 93 98.4 08/30/17 18:27 96.1 08/30/17 16:00 96.1 84 24 137/83 (101) 90 96.1 08/30/17 14:17 97.8 Intake and Output 08/30/17 08/31/17 19:00 07:00 Intake Total 810 ml 940 ml Output Total 1850 ml 1300 ml Balance -1040 ml -360 ml Intake Oral 450 ml IV Total 360 ml 940 ml Output Urine Total 1850 ml 1300 ml # Voids 4 # Bowel Movements 2 Laboratory Tests 08/31/17 04:20: Stool Occult Blood Negative 08/31/17 06:00: White Blood Count 7.0, Red Blood Count 2.95L, Hemoglobin 8.5L, Hematocrit 25.5L , Mean Corpuscular Volume 86, Mean Corpuscular Hemoglobin 28.8, Mean Corpuscular Hemoglobin Concent 33.3, Red Cell Distribution Width 13.0, Platelet Count 270, Mean Platelet Volume 5.6L, Neutrophils (%) (Auto) 74.5, Lymphocytes ( %) (Auto) 17.9L, Monocytes (%) (Auto) 6.5, Eosinophils (%) (Auto) 0.6, Basophils (%) (Auto) 0.6, Sodium Level 132L, Potassium Level 3.9, Chloride Level 99, Carbon Dioxide Level 28, Anion Gap 5, Blood Urea Nitrogen 5L, Creatinine 0.5L, Estimat Glomerular Filtration Rate > 60, Glucose Level 123H, Calcium Level 7.8L Height (Feet): 5 Height (Inches): 7.00 Weight (Pounds): 159 General Appearance: lethargic EENT: normal ENT inspection Neck: normal alignment Cardiovascular: normal peripheral pulses, normal rate, regular rhythm Respiratory/Chest: chest wall non-tender, lungs clear, normal breath sounds Abdomen: normal bowel sounds, non tender, soft Extremities: normal inspection Edema: no edema noted Arm (L), no edema noted Arm (R), no edema noted Leg (L), no edema noted Leg (R), no edema noted Pedal (L), no edema noted Pedal (R), no edema noted Generalized Neurologic: motor weakness Skin: normal pigmentation, warm/dry Chemo Dietrich DO Aug 31, 2017 12:06
--- NOTE | 2017-08-31 12:33 | Pulmonology Progress Note ---
Assessment/Plan Problems: (1) Epidural abscess (2) Sepsis (3) Osteomyelitis (4) COPD (chronic obstructive pulmonary disease) (5) Hypoalbuminemia (6) Hepatitis C (7) HIV (human immunodeficiency virus infection) (8) Pleural effusion Assessment/Plan pain management MRI of spine noted spine surgery evaluation can not be done at this facility iv abx check electrolytes symptomatic treatment transfer to higher level of care Subjective ROS Limited/Unobtainable: No Constitutional: Reports: no symptoms HEENT: Repors: no symptoms Respiratory: Reports: no symptoms Allergies: Coded Allergies: No Known Allergies (Unverified , 08/06/17) Objective Last 24 Hour Vital Signs Date Time Temp Pulse Resp B/P (MAP) Pulse Ox O2 Delivery O2 Flow Rate FiO2 08/31/17 10:49 95.7 08/31/17 10:19 95.7 08/31/17 09:28 95.7 08/31/17 09:00 Room Air 08/31/17 08:29 95.7 08/31/17 08:00 95.7 84 20 127/68 (87) 92 95.7 08/31/17 04:00 97.6 78 22 127/75 (92) 93 97.6 08/31/17 00:00 97.7 80 22 111/69 (83) 92 97.7 08/30/17 21:00 Room Air 08/30/17 20:00 98.4 88 24 121/67 (85) 93 98.4 08/30/17 18:27 96.1 08/30/17 16:00 96.1 84 24 137/83 (101) 90 96.1 08/30/17 14:17 97.8 Intake and Output 08/30/17 08/31/17 19:00 07:00 Intake Total 810 ml 940 ml Output Total 1850 ml 1300 ml Balance -1040 ml -360 ml Intake Oral 450 ml IV Total 360 ml 940 ml Output Urine Total 1850 ml 1300 ml # Voids 4 # Bowel Movements 2 General Appearance: WD/WN, no acute distress HEENT: normocephalic, anicteric Respiratory/Chest: chest wall non-tender, lungs clear Cardiovascular: normal peripheral pulses, normal rate Abdomen: normal bowel sounds, soft, non tender Genitourinary: normal external genitalia Extremities: no clubbing Skin: no lesions Neurologic/Psychiatric: cycle specialist II-XII grossly normal Laboratory Tests 08/31/17 04:20: Stool Occult Blood Negative 08/31/17 06:00: White Blood Count 7.0, Red Blood Count 2.95L, Hemoglobin 8.5L, Hematocrit 25.5L , Mean Corpuscular Volume 86, Mean Corpuscular Hemoglobin 28.8, Mean Corpuscular Hemoglobin Concent 33.3, Red Cell Distribution Width 13.0, Platelet Count 270, Mean Platelet Volume 5.6L, Neutrophils (%) (Auto) 74.5, Lymphocytes ( %) (Auto) 17.9L, Monocytes (%) (Auto) 6.5, Eosinophils (%) (Auto) 0.6, Basophils (%) (Auto) 0.6, Sodium Level 132L, Potassium Level 3.9, Chloride Level 99, Carbon Dioxide Level 28, Anion Gap 5, Blood Urea Nitrogen 5L, Creatinine 0.5L, Estimat Glomerular Filtration Rate > 60, Glucose Level 123H, Calcium Level 7.8L Current Medications Medications (Trade) Dose Ordered Sig/Veronica Route PRN Reason Start Time Stop Time Status Last Admin Dose Admin Acetaminophen (Tylenol) 650 mg Q4H PRN ORAL FEVER 08/25/17 08:15 09/24/17 08:14 08/27/17 13:06 Acetaminophen/ Hydrocodone Bitart ([place] 10/325) 1 tab Q6H PRN ORAL moderate pain 08/28/17 08:45 09/02/17 12:13 08/31/17 08:29 Chlorhexidine Gluconate (Nishi-Hex 2%) 1 applic DAILY@2000 TOPIC 08/29/17 20:00 09/28/17 19:59 08/30/17 20:51 Dextrose (Dextrose 50%) 25 ml STAT PRN IV Hypoglycemia 08/25/17 08:15 09/24/17 08:14 Dextrose (Dextrose 50%) 50 ml STAT PRN IV Hypoglycemia 08/25/17 08:30 09/24/17 08:29 Docusate Sodium (Colace) 100 mg THREE TIMES A DAY ORAL 08/30/17 13:00 09/29/17 12:59 08/31/17 12:16 Duloxetine HCl (Cymbalta) 30 mg DAILY ORAL 08/25/17 09:00 09/24/17 08:59 08/31/17 10:19 Gabapentin (Neurontin) 300 mg THREE TIMES A DAY ORAL 08/25/17 09:00 09/24/17 08:59 08/31/17 12:16 Heparin Sodium (Porcine) (Heparin 5000 units/ml) 5,000 units EVERY 12 HOURS SUBQ 08/25/17 09:00 09/24/17 08:59 08/31/17 08:33 Hydromorphone HCl (Dilaudid) 1 mg Q4H PRN IVP severe pain 08/28/17 08:45 09/04/17 08:44 08/31/17 10:19 Lorazepam (Ativan 2mg/ml 1ml) 2 mg EVERY 2 HOURS PRN IV For Anxiety 08/25/17 08:30 09/01/17 08:14 08/28/17 10:06 Lorazepam (Ativan) 1 mg Q6H PRN ORAL For Anxiety 08/25/17 04:30 09/01/17 04:29 08/30/17 00:29 Ondansetron HCl (Zofran) 4 mg Q6H PRN IVP Nausea & Vomiting 08/25/17 08:15 09/24/17 08:14 Oxacillin Sodium 2 gm/Sodium Chloride 110 ml @ 220 mls/hr Q4HR IVPB 08/25/17 21:00 09/01/17 20:59 08/31/17 12:16 Polyethylene Glycol (Miralax) 17 gm DAILYPRN PRN ORAL Constipation 08/25/17 08:15 09/24/17 08:14 08/28/17 09:04 Sodium Chloride 1,000 ml @ 50 mls/hr Q20H IV 08/26/17 13:45 09/25/17 13:44 08/31/17 12:18 Sally Cox MD Aug 31, 2017 12:32
--- NOTE | 2017-08-31 13:52 | General Progress Note ---
Assessment/Plan Assessment/Plan (1) Left sided wall chest pain (2) Lung effusion possible empyema (3) S/p VATS (4) Intercostal Neuropathy (5) Lumbar Spondylosis (6) T9-10 discitis/osteomyelitis with epidural abscess (7) Cervical spinal stenosis We will continue Dilaudid changed to Q3h PRN, Superior and Neurontin. Recommend Neurosurgical consultation as per carport erector. D/w Dr. Stevens and he concurred. Subjective Date patient seen: Aug 31, 2017 Time patient seen: 01:00 - pm Allergies: Coded Allergies: No Known Allergies (Unverified , 08/06/17) Subjective REVIEW OF SYSTEMS: Denies rash, fever, chills, sweating, dizziness, drowsiness, blurred vision, sore throat, or change in weight. No nausea, vomiting, diarrhea, or blood in the stool or urine. He is complaining of left chest wall pain and back pain. SUBJECTIVE: Patient reports that his pain has been severe and now having more numbness in his right leg. The Dilaudid has helped but not lasting for four hours. He using the Superior as needed for breakthrough pain. Waiting for transfer to higher level of care due for neurosurgical intervention. Objective Last 24 Hour Vital Signs Date Time Temp Pulse Resp B/P (MAP) Pulse Ox O2 Delivery O2 Flow Rate FiO2 08/31/17 12:00 93.9 77 20 119/71 (87) 94 93.9 08/31/17 10:49 95.7 08/31/17 10:19 95.7 08/31/17 09:28 95.7 08/31/17 09:00 Room Air 08/31/17 08:29 95.7 08/31/17 08:00 95.7 84 20 127/68 (87) 92 95.7 08/31/17 04:00 97.6 78 22 127/75 (92) 93 97.6 08/31/17 00:00 97.7 80 22 111/69 (83) 92 97.7 08/30/17 21:00 Room Air 08/30/17 20:00 98.4 88 24 121/67 (85) 93 98.4 08/30/17 18:27 96.1 08/30/17 16:00 96.1 84 24 137/83 (101) 90 96.1 08/30/17 14:17 97.8 Intake and Output 08/30/17 08/31/17 19:00 07:00 Intake Total 810 ml 940 ml Output Total 1850 ml 1300 ml Balance -1040 ml -360 ml Intake Oral 450 ml IV Total 360 ml 940 ml Output Urine Total 1850 ml 1300 ml # Voids 4 # Bowel Movements 2 Laboratory Tests 08/31/17 04:20: Stool Occult Blood Negative 08/31/17 06:00: White Blood Count 7.0, Red Blood Count 2.95L, Hemoglobin 8.5L, Hematocrit 25.5L , Mean Corpuscular Volume 86, Mean Corpuscular Hemoglobin 28.8, Mean Corpuscular Hemoglobin Concent 33.3, Red Cell Distribution Width 13.0, Platelet Count 270, Mean Platelet Volume 5.6L, Neutrophils (%) (Auto) 74.5, Lymphocytes ( %) (Auto) 17.9L, Monocytes (%) (Auto) 6.5, Eosinophils (%) (Auto) 0.6, Basophils (%) (Auto) 0.6, Sodium Level 132L, Potassium Level 3.9, Chloride Level 99, Carbon Dioxide Level 28, Anion Gap 5, Blood Urea Nitrogen 5L, Creatinine 0.5L, Estimat Glomerular Filtration Rate > 60, Glucose Level 123H, Calcium Level 7.8L Height (Feet): 5 Height (Inches): 7.00 Weight (Pounds): 159 Objective GENERAL: Alert, awake, and oriented. LUNGS: Decreased breath sounds bilaterally. HEART: S1 S2 Regular. ABDOMEN: Benign. EXTREMITIES: No cyanosis. No clubbing. No edema. NEURO: No changes. Mark Rausch Aug 31, 2017 13:52
[2017-08-31 16:00] VITALS: BP 142/82
--- NOTE | 2017-08-31 16:16 | General Surgery Progress Note ---
General Surgery-Progress Note Subjective Additional Comments no acute events. resting comfortable Objective Last 24 Hour Vital Signs Date Time Temp Pulse Resp B/P (MAP) Pulse Ox O2 Delivery O2 Flow Rate FiO2 08/31/17 14:31 93.9 08/31/17 14:01 93.9 08/31/17 12:00 93.9 77 20 119/71 (87) 94 93.9 08/31/17 10:49 95.7 08/31/17 10:19 95.7 08/31/17 09:28 95.7 08/31/17 09:00 Room Air 08/31/17 08:29 95.7 08/31/17 08:00 95.7 84 20 127/68 (87) 92 95.7 08/31/17 04:00 97.6 78 22 127/75 (92) 93 97.6 08/31/17 00:00 97.7 80 22 111/69 (83) 92 97.7 08/30/17 21:00 Room Air 08/30/17 20:00 98.4 88 24 121/67 (85) 93 98.4 08/30/17 18:27 96.1 I&O Intake and Output 08/30/17 08/31/17 19:00 07:00 Intake Total 810 ml 1040 ml Output Total 1850 ml 1300 ml Balance -1040 ml -260 ml Intake Oral 450 ml IV Total 360 ml 1040 ml Output Urine Total 1850 ml 1300 ml # Voids 4 # Bowel Movements 2 Wound: clean, dry Drains: none Cardiovascular: RSR Respiratory: clear Abdomen: soft, flat Extremities: no cyanosis Laboratory Tests Test 08/31/17 04:20 08/31/17 06:00 Stool Occult Blood Negative (NEGATIVE) White Blood Count 7.0 K/UL (4.8-10.8) Red Blood Count 2.95 M/UL (4.70-6.10) L Hemoglobin 8.5 G/DL (14.2-18.0) L Hematocrit 25.5 % (42.0-52.0) L Mean Corpuscular Volume 86 FL (80-99) Mean Corpuscular Hemoglobin 28.8 PG (27.0-31.0) Mean Corpuscular Hemoglobin Concent 33.3 G/DL (32.0-36.0) Red Cell Distribution Width 13.0 % (11.6-14.8) Platelet Count 270 K/UL (150-450) Mean Platelet Volume 5.6 FL (6.5-10.1) L Neutrophils (%) (Auto) 74.5 % (45.0-75.0) Lymphocytes (%) (Auto) 17.9 % (20.0-45.0) L Monocytes (%) (Auto) 6.5 % (1.0-10.0) Eosinophils (%) (Auto) 0.6 % (0.0-3.0) Basophils (%) (Auto) 0.6 % (0.0-2.0) Sodium Level 132 MMOL/L (136-145) L Potassium Level 3.9 MMOL/L (3.5-5.1) Chloride Level 99 MMOL/L (98-107) Carbon Dioxide Level 28 MMOL/L (21-32) Anion Gap 5 mmol/L (5-15) Blood Urea Nitrogen 5 mg/dL (7-18) L Creatinine 0.5 MG/DL (0.55-1.30) L Estimat Glomerular Filtration Rate > 60 mL/min (>60) Glucose Level 123 MG/DL (74-106) H Calcium Level 7.8 MG/DL (8.5-10.1) L Plan Problems: (1) Empyema Assessment & Plan: s/p VATS. since chest tube removed. wounds healing. no signs of surgical site infection. does have pain on left ribs and likely healing from surgery patient signed out AMA last hospitalization prior to completion of therapy. Repeat chest CT now with larger right sided effusion possible empyema. MRI spine reviewed. spine abscess recommend tap of right side for cultures / eval -patient declined and refused thoracentesis needs spine surgery eval. possibly may need transfer to high level of care IV Abx will follow with Brian Milligan Aug 31, 2017 16:16
[2017-08-31 20:00] VITALS: BP 128/75
[2017-08-31] MEDS: Dyna-Hex 2% Top Sol 2oz TOPIC SCH (22:20)
--- NOTE | 2017-08-31 23:57 | Cardiology Progress Note ---
Assessment/Plan Assessment/Plan 1, Bacteremia, tried to obtain informed consent however she is refusing NURA, continue ABx therapy. 2. Transientt diskitis. 3. Epidural abscess 4. COPD 5. HCV infection 6. HIV disease Subjective Subjective No cardiac events. Objective Last 24 Hour Vital Signs Date Time Temp Pulse Resp B/P (MAP) Pulse Ox O2 Delivery O2 Flow Rate FiO2 08/31/17 22:19 80 20 Room Air 21 08/31/17 20:00 97.7 80 19 128/75 (92) 92 97.7 08/31/17 18:08 97.6 08/31/17 18:08 97.6 08/31/17 18:03 97.6 08/31/17 17:09 97.6 08/31/17 16:00 97.6 79 20 142/82 (102) 95 97.6 08/31/17 14:01 93.9 08/31/17 12:00 93.9 77 20 119/71 (87) 94 93.9 08/31/17 10:49 95.7 08/31/17 10:19 95.7 08/31/17 09:00 Room Air 08/31/17 08:29 95.7 08/31/17 08:00 95.7 84 20 127/68 (87) 92 95.7 08/31/17 04:00 97.6 78 22 127/75 (92) 93 97.6 08/31/17 00:00 97.7 80 22 111/69 (83) 92 97.7 Intake and Output 08/30/17 08/31/17 19:00 07:00 Intake Total 810 ml 1040 ml Output Total 1850 ml 1300 ml Balance -1040 ml -260 ml Intake Oral 450 ml IV Total 360 ml 1040 ml Output Urine Total 1850 ml 1300 ml # Voids 4 # Bowel Movements 2 2D Echo: EF 65%, Mild LVH, Increased RAP (10 mmHg), Grade I LVDD, RVSP 40 mmHg Laboratory Tests Test 08/31/17 04:20 08/31/17 06:00 Stool Occult Blood Negative (NEGATIVE) White Blood Count 7.0 K/UL (4.8-10.8) Red Blood Count 2.95 M/UL (4.70-6.10) L Hemoglobin 8.5 G/DL (14.2-18.0) L Hematocrit 25.5 % (42.0-52.0) L Mean Corpuscular Volume 86 FL (80-99) Mean Corpuscular Hemoglobin 28.8 PG (27.0-31.0) Mean Corpuscular Hemoglobin Concent 33.3 G/DL (32.0-36.0) Red Cell Distribution Width 13.0 % (11.6-14.8) Platelet Count 270 K/UL (150-450) Mean Platelet Volume 5.6 FL (6.5-10.1) L Neutrophils (%) (Auto) 74.5 % (45.0-75.0) Lymphocytes (%) (Auto) 17.9 % (20.0-45.0) L Monocytes (%) (Auto) 6.5 % (1.0-10.0) Eosinophils (%) (Auto) 0.6 % (0.0-3.0) Basophils (%) (Auto) 0.6 % (0.0-2.0) Sodium Level 132 MMOL/L (136-145) L Potassium Level 3.9 MMOL/L (3.5-5.1) Chloride Level 99 MMOL/L (98-107) Carbon Dioxide Level 28 MMOL/L (21-32) Anion Gap 5 mmol/L (5-15) Blood Urea Nitrogen 5 mg/dL (7-18) L Creatinine 0.5 MG/DL (0.55-1.30) L Estimat Glomerular Filtration Rate > 60 mL/min (>60) Glucose Level 123 MG/DL (74-106) H Calcium Level 7.8 MG/DL (8.5-10.1) L Objective HEENT: Normocephalic, atraumatic, PERRLA, EOMI, No pale conjunctivae. No icterus. NECK: No JVD, no carotid bruit. CHEST: Clear HEART: Normal S1 and S2, no murmurs, gallops or rubs. ABDOMEN: Soft and nontender, no hepatosplenomegaly, + BS. BACK: The patient has tenderness in the lower thoracic and lumbar area. EXTREMITIES: No edema , clubbing or cyanosis. Omid Tellez MD Aug 31, 2017 23:57
[2017-09-01] VITALS: BP 114/74
[2017-09-01] MEDS: HYDROcodone/Acetamin 10/325 tab ORAL PRN ×2 (00:08→20:09)
[2017-09-01] MEDS: Oxacillin 2 GM in NS 110 ML IVPB SCH ×6 (02:11→20:09)
[2017-09-01] MEDS: HYDROmorphone 1mg/ml Carpuject IVP PRN ×7 (02:12→22:25)
[2017-09-01 04:00] VITALS: BP 121/76
[2017-09-01 06:48] LABS: BASOPHILS % (AUTO) 0.4 % (0.0-2.0); EOSINOPHILS % (AUTO) 0.6 % (0.0-3.0); HEMATOCRIT 27.7 % (42.0-52.0); HEMOGLOBIN 9.2 G/DL (14.2-18.0); LYMPHOCYTES % (AUTO) 19.4 % (20.0-45.0); MEAN CORPUSCULAR VOLUME 86 FL (80-99); MONOCYTES % (AUTO) 5.9 % (1.0-10.0); NEUTROPHILS % (AUTO) 73.7 % (45.0-75.0); PLATELET COUNT 299 K/UL (150-450); RED BLOOD COUNT 3.23 M/UL (4.70-6.10); RED CELL DISTRIBUTION WIDTH 12.8 % (11.6-14.8); WHITE BLOOD COUNT 8.2 K/UL (4.8-10.8)
--- NOTE | 2017-09-01 07:02 | General Progress Note ---
Assessment/Plan Problem List: (1) Chronic pain ICD Codes: G89.29 - Other chronic pain SNOMED: 79731560 (2) Hypokalemia ICD Codes: E87.6 - Hypokalemia SNOMED: 23914360 (3) HIV (human immunodeficiency virus infection) ICD Codes: B20 - Human immunodeficiency virus [HIV] disease SNOMED: 18777525 (4) Sepsis ICD Codes: A41.9 - Sepsis, unspecified organism SNOMED: 59730354 Qualifiers: Qualified Codes: A41.9 - Sepsis, unspecified organism (5) Empyema ICD Codes: J86.9 - Pyothorax without fistula SNOMED: 184781010 (6) Drug abuse and dependence ICD Codes: F19.20 - Other psychoactive substance dependence, uncomplicated SNOMED: 4661723 (7) Epidural abscess ICD Codes: G06.2 - Extradural and subdural abscess, unspecified SNOMED: 66846842 Status: unchanged Assessment/Plan ot pt diet abx neph f/u cbc bmp am higher level care prn Subjective Constitutional: Reports: weakness Allergies: Coded Allergies: No Known Allergies (Unverified , 08/06/17) All Systems: reviewed and negative except above Subjective sleepy calm Objective Last 24 Hour Vital Signs Date Time Temp Pulse Resp B/P (MAP) Pulse Ox O2 Delivery O2 Flow Rate FiO2 09/01/17 04:00 98.0 83 19 121/76 (91) 93 98.0 09/01/17 00:00 97.6 90 19 114/74 (87) 98 97.6 08/31/17 22:19 80 20 Room Air 21 08/31/17 21:00 Room Air 08/31/17 20:00 97.7 80 19 128/75 (92) 92 97.7 08/31/17 18:08 97.6 08/31/17 18:08 97.6 08/31/17 18:03 97.6 08/31/17 17:09 97.6 08/31/17 16:00 97.6 79 20 142/82 (102) 95 97.6 08/31/17 14:01 93.9 08/31/17 12:00 93.9 77 20 119/71 (87) 94 93.9 08/31/17 10:49 95.7 7/20/18 10:19 95.7 08/31/17 09:00 Room Air 08/31/17 08:29 95.7 08/31/17 08:00 95.7 84 20 127/68 (87) 92 95.7 Intake and Output 08/31/17 09/01/17 19:00 07:00 Intake Total 890 ml 1130 ml Output Total 2700 ml 1350 ml Balance -1810 ml -220 ml Intake Oral 240 ml 250 ml IV Total 650 ml 880 ml Output Urine Total 2700 ml 1350 ml Laboratory Tests 09/01/17 06:00: White Blood Count 8.2, Red Blood Count 3.23L, Hemoglobin 9.2L, Hematocrit 27.7L , Mean Corpuscular Volume 86, Mean Corpuscular Hemoglobin 28.5, Mean Corpuscular Hemoglobin Concent 33.3, Red Cell Distribution Width 12.8, Platelet Count 299, Mean Platelet Volume 5.6L, Neutrophils (%) (Auto) 73.7, Lymphocytes ( %) (Auto) 19.4L, Monocytes (%) (Auto) 5.9, Eosinophils (%) (Auto) 0.6, Basophils (%) (Auto) 0.4, Erythrocyte Sedimentation Rate [Pending], Sodium Level [Pending], Potassium Level [Pending], Chloride Level [Pending], Carbon Dioxide Level [Pending], Blood Urea Nitrogen [Pending], Creatinine [Pending], Estimat Glomerular Filtration Rate [Pending], Glucose Level [Pending], Calcium Level [Pending], Phosphorus Level [Pending], Magnesium Level [Pending], Total Bilirubin [Pending], Aspartate Amino Transf (AST/SGOT) [Pending], Alanine Aminotransferase (ALT/SGPT) [Pending], Alkaline Phosphatase [Pending], C- Reactive Protein, Quantitative [Pending], Total Protein [Pending], Albumin [ Pending], Globulin [Pending] Height (Feet): 5 Height (Inches): 7.00 Weight (Pounds): 159 General Appearance: lethargic EENT: normal ENT inspection Neck: normal alignment Cardiovascular: normal peripheral pulses, normal rate, regular rhythm Respiratory/Chest: chest wall non-tender, lungs clear, normal breath sounds Abdomen: normal bowel sounds, non tender, soft Extremities: normal inspection Edema: no edema noted Arm (L), no edema noted Arm (R), no edema noted Leg (L), no edema noted Leg (R), no edema noted Pedal (L), no edema noted Pedal (R), no edema noted Generalized Neurologic: motor weakness Skin: normal pigmentation, warm/dry Chemo Dietrich DO Sep 01, 2017 07:02
[2017-09-01 07:11] LABS: PHOSPHORUS 3.9 MG/DL (2.5-4.9)
[2017-09-01 07:13] LABS: ALANINE AMINOTRANSFERASE 30 U/L (12-78); ALBUMIN 1.7 G/DL (3.4-5.0); ALBUMIN/GLOBULIN RATIO 0.3 (1.0-2.7); ALKALINE PHOSPHATASE 79 U/L (46-116); ANION GAP 4 mmol/L (5-15); ASPARTATE AMINO TRANSFERASE 18 U/L (15-37); BILIRUBIN,TOTAL 0.3 MG/DL (0.2-1.0); BLOOD UREA NITROGEN 7 mg/dL (7-18); CALCIUM 8.3 MG/DL (8.5-10.1); CARBON DIOXIDE 29 MMOL/L (21-32); CHLORIDE 98 MMOL/L (98-107); CREATININE 0.5 MG/DL (0.55-1.30); POTASSIUM 4.1 MMOL/L (3.5-5.1); SODIUM 131 MMOL/L (136-145)
[2017-09-01 08:00] VITALS: BP 137/80
[2017-09-01] MEDS: Docusate 100mg cap ORAL SCH ×3 (09:32→18:18)
[2017-09-01] MEDS: DULoxetine 30mg cap ORAL SCH (09:32)
[2017-09-01] MEDS: Heparin 5000 units/ml inj SUBQ SCH ×2 (09:33→20:11)
--- NOTE | 2017-09-01 10:04 | Infectious Diseases Prog Note ---
Assessment/Plan Assessment/Plan ASSESSMENT: The patient is a 56-year-old male with multiple medical problems, who has recent empyema/bacteremia due to methicillin-sensitive Staphylococcus aureus ( Signed off AMA on 08/18/17 and had incomplete treatment; only 10 day of 42) -CT chest 08/25: Increased size of loculated right pleural effusion. Small air in the pleural space. Smaller residual left loculated pleural fluid with small air. Small to moderate fluid collection now in the left fissure. Bilateral lower lobe atelectasis/consolidations and air space disease,similar. -s/p VATS, partial pleurectomy, decortication 08/14 -OR findings : Bronchoscopy: A minimal amount of mucopurulent secretion was lavaged and suctioned clear. No endobronchial lesions. -VATS: There were noted to be numerous adhesions tethering along to the surrounding chest wall. The disease appears to be localized in the left lower lobe as the left upper lobe was virtually spared. - OR cx MSSA -CT chest 08/10: Left pleural effusion. Scalloped appearance suggests loculation. Presence of gas bubbles suggest infection by gas-forming organism. Gas bubbles appear trapped within the fluid rather than floating nondependently , indicating the fluid may be highly viscous. - -08/07 Bcx 4/4 MSSA; 08/08 4/4+; 08/10 2/4 +; 08/11 2/4+; 08/13 Neg x4; Bcx 08/27 NTDx4 -08/28 ESR 126 <86 (08/10), CRP 12 < 27 (08/09) Mild leukocytosis, resolved Low grade fever, intermittent Probable endocarditis (NURA was not done). Thoracic Discitis/Osteomyelitis and epidural abscess T7-T10- causing spinal cord compression; Possible Cervical spodylodiscitis w/ cord compression > Quadriparesis -MRI Cervical spine: Disc narrowing at C5-6. Marrow edema of the adjacent C5 and C6 vertebral bodies is noted. This is most likely due to Modic type I degenerative change and reactive marrow edema, particularly given the absence of edema within the disc. However, the possibility of spondylodiscitis as etiology of this finding, particularly in view of recent diagnosis of thoracic epidural abscess and in view of the slight degree of surrounding soft tissue edema, should also be considered. Severe spinal stenosis with cord compression at multiple levels extending from C3-4 through C5-6. Minimum AP dimension of the spinal canal 5 mm. Due to image degradation, it is uncertain as to whether there is significant cord edema/myelomalacia present. Multilevel severe neural foraminal stenosis as detailed level by level basis above -MRI Thoracic Spine: Suspicion of cord compression T7-T10 secondary to a posterior epidural abscess versus mass. Abscess favored given suspicion of spondylodiscitis at T9-10 as well as bilateral pleural effusions and pneumonia ( recent diagnosed on CT chest). Significantly limited study due to motion. -MRI Lumbar spine: Evidence of T9-10 discitis/osteomyelitis. Suspect related to previously described adjacent bilateral pleural empyemas. Evidence of epidural abscess measuring at least 8 x 11 mm in diameter, and extending at least 5 cm craniocaudad, at and above the T9 level. This results in significant spinal stenosis. Note that it is incompletely included in the imaging volume, and the cephalad extent above mid T7 is unclear. Recommend thoracic MRI for further evaluation. As mentioned above, evidence of bilateral empyemas, with bilateral loculated pleural fluid collections and extensive enhancement and edema of the adjacent soft tissue. 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 The patient is on oxacillin day # -56 (the patient received 11 days of treatment prior to discharge). -monitor LFTs -08/25 SP IV Vanco and Cefepme #2 -08/18 SP IV Oxacillin #9 -08/10 SP Ceftriaxone d# 5 and IV Vancomycin #3 -08/06 SP Cefepime x1, Levaquin x1 -. Monitor CBC/CMP, temperatures -. Monitor cultures (Bcx) -NEEDS EMERGENT transfer to tertiary hospital for neurosurgical evaluation for epidural abscess and thoracic discitis and OM as it causing spinal cord compression -awaiting transfer -Needs also further chest drainage; currently refusing -will also need NURA to eval for endocarditis/valvular abscess ( pt refused ) -f/u repeat Bcx x2 Subjective Allergies: Coded Allergies: No Known Allergies (Unverified , 08/06/17) Objective Vital Signs Last 24 Hour Vital Signs Date Time Temp Pulse Resp B/P (MAP) Pulse Ox O2 Delivery O2 Flow Rate FiO2 09/01/17 08:58 98.0 09/01/17 04:00 98.0 83 19 121/76 (91) 93 98.0 09/01/17 00:00 97.6 90 19 114/74 (87) 98 97.6 08/31/17 22:19 80 20 Room Air 21 08/31/17 21:00 Room Air 08/31/17 20:00 97.7 80 19 128/75 (92) 92 97.7 08/31/17 18:08 97.6 08/31/17 18:08 97.6 08/31/17 18:03 97.6 08/31/17 17:09 97.6 08/31/17 16:00 97.6 79 20 142/82 (102) 95 97.6 08/31/17 14:01 93.9 08/31/17 12:00 93.9 77 20 119/71 (87) 94 93.9 08/31/17 10:49 95.7 08/31/17 10:19 95.7 Height (Feet): 5 Height (Inches): 7.00 Weight (Pounds): 159 Microbiology Date/Time Source Procedure Growth Status 08/30/17 15:45 Blood Blood Culture - Preliminary NO GROWTH AFTER 24 HOURS Resulted 08/30/17 15:30 Blood Blood Culture - Preliminary NO GROWTH AFTER 24 HOURS Resulted Laboratory Tests Test 09/01/17 06:00 White Blood Count 8.2 K/UL (4.8-10.8) Red Blood Count 3.23 M/UL (4.70-6.10) L Hemoglobin 9.2 G/DL (14.2-18.0) L Hematocrit 27.7 % (42.0-52.0) L Mean Corpuscular Volume 86 FL (80-99) Mean Corpuscular Hemoglobin 28.5 PG (27.0-31.0) Mean Corpuscular Hemoglobin Concent 33.3 G/DL (32.0-36.0) Red Cell Distribution Width 12.8 % (11.6-14.8) Platelet Count 299 K/UL (150-450) Mean Platelet Volume 5.6 FL (6.5-10.1) L Neutrophils (%) (Auto) 73.7 % (45.0-75.0) Lymphocytes (%) (Auto) 19.4 % (20.0-45.0) L Monocytes (%) (Auto) 5.9 % (1.0-10.0) Eosinophils (%) (Auto) 0.6 % (0.0-3.0) Basophils (%) (Auto) 0.4 % (0.0-2.0) Erythrocyte Sedimentation Rate 124 MM/HR (0-20) H Sodium Level 131 MMOL/L (136-145) L Potassium Level 4.1 MMOL/L (3.5-5.1) Chloride Level 98 MMOL/L (98-107) Carbon Dioxide Level 29 MMOL/L (21-32) Anion Gap 4 mmol/L (5-15) L Blood Urea Nitrogen 7 mg/dL (7-18) Creatinine 0.5 MG/DL (0.55-1.30) L Estimat Glomerular Filtration Rate > 60 mL/min (>60) Glucose Level 112 MG/DL (74-106) H Calcium Level 8.3 MG/DL (8.5-10.1) L Phosphorus Level 3.9 MG/DL (2.5-4.9) Magnesium Level 2.0 MG/DL (1.8-2.4) Total Bilirubin 0.3 MG/DL (0.2-1.0) Aspartate Amino Transf (AST/SGOT) 18 U/L (15-37) Alanine Aminotransferase (ALT/SGPT) 30 U/L (12-78) Alkaline Phosphatase 79 U/L (46-116) C-Reactive Protein, Quantitative 9.2 mg/dL (0.00-0.90) H Total Protein 7.4 G/DL (6.4-8.2) Albumin 1.7 G/DL (3.4-5.0) L Globulin 5.7 g/dL Albumin/Globulin Ratio 0.3 (1.0-2.7) L Current Medications Medications (Trade) Dose Ordered Sig/Veronica Route PRN Reason Start Time Stop Time Status Last Admin Dose Admin Acetaminophen (Tylenol) 650 mg Q4H PRN ORAL FEVER 08/25/17 08:15 09/24/17 08:14 08/27/17 13:06 Acetaminophen/ Hydrocodone Bitart ([place] 10/325) 1 tab Q6H PRN ORAL moderate pain 08/28/17 08:45 09/02/17 12:13 09/01/17 00:08 Chlorhexidine Gluconate (N[place]-Hex 2%) 1 applic DAILY@2000 TOPIC 08/29/17 20:00 09/28/17 19:59 08/31/17 22:20 Dextrose (Dextrose 50%) 25 ml STAT PRN IV Hypoglycemia 08/25/17 08:15 09/24/17 08:14 Dextrose (Dextrose 50%) 50 ml STAT PRN IV Hypoglycemia 08/25/17 08:30 09/24/17 08:29 Docusate Sodium (Colace) 100 mg THREE TIMES A DAY ORAL 08/30/17 13:00 09/29/17 12:59 09/01/17 09:32 Duloxetine HCl (Cymbalta) 30 mg DAILY ORAL 08/25/17 09:00 09/24/17 08:59 09/01/17 09:32 Gabapentin (Neurontin) 300 mg THREE TIMES A DAY ORAL 08/25/17 09:00 09/24/17 08:59 09/01/17 09:32 Heparin Sodium (Porcine) (Heparin 5000 units/ml) 5,000 units EVERY 12 HOURS SUBQ 08/25/17 09:00 09/24/17 08:59 09/01/17 09:33 Hydromorphone HCl (Dilaudid) 1 mg Q3H PRN IVP severe pain 08/31/17 14:00 09/04/17 08:44 09/01/17 08:58 Ondansetron HCl (Zofran) 4 mg Q6H PRN IVP Nausea & Vomiting 08/25/17 08:15 09/24/17 08:14 Oxacillin Sodium 2 gm/Sodium Chloride 110 ml @ 220 mls/hr Q4HR IVPB 08/25/17 21:00 09/07/17 20:59 09/01/17 09:32 Polyethylene Glycol (Miralax) 17 gm DAILYPRN PRN ORAL Constipation 08/25/17 08:15 09/24/17 08:14 08/28/17 09:04 Sodium Chloride 1,000 ml @ 50 mls/hr Q20H IV 08/26/17 13:45 09/25/17 13:44 09/01/17 09:33 Mushtaq Almonte MD Sep 01, 2017 10:04
--- NOTE | 2017-09-01 11:18 | General Surgery Progress Note ---
General Surgery-Progress Note Subjective Additional Comments doing okay. no acute events Objective Last 24 Hour Vital Signs Date Time Temp Pulse Resp B/P (MAP) Pulse Ox O2 Delivery O2 Flow Rate FiO2 09/01/17 09:00 Room Air 09/01/17 08:58 98.0 09/01/17 08:00 97.3 86 21 137/80 (99) 95 97.3 09/01/17 04:00 98.0 83 19 121/76 (91) 93 98.0 09/01/17 00:00 97.6 90 19 114/74 (87) 98 97.6 08/31/17 22:19 80 20 Room Air 21 08/31/17 21:00 Room Air 08/31/17 20:00 97.7 80 19 128/75 (92) 92 97.7 08/31/17 18:08 97.6 08/31/17 18:08 97.6 08/31/17 18:03 97.6 08/31/17 17:09 97.6 08/31/17 16:00 97.6 79 20 142/82 (102) 95 97.6 08/31/17 14:01 93.9 08/31/17 12:00 93.9 77 20 119/71 (87) 94 93.9 I&O Intake and Output 08/31/17 09/01/17 19:00 07:00 Intake Total 890 ml 1130 ml Output Total 2700 ml 1350 ml Balance -1810 ml -220 ml Intake Oral 240 ml 250 ml IV Total 650 ml 880 ml Output Urine Total 2700 ml 1350 ml Wound: clean, dry Drains: none Cardiovascular: RSR Respiratory: clear Abdomen: soft, non-tender, present bowel sounds Extremities: no cyanosis Laboratory Tests Test 09/01/17 06:00 White Blood Count 8.2 K/UL (4.8-10.8) Red Blood Count 3.23 M/UL (4.70-6.10) L Hemoglobin 9.2 G/DL (14.2-18.0) L Hematocrit 27.7 % (42.0-52.0) L Mean Corpuscular Volume 86 FL (80-99) Mean Corpuscular Hemoglobin 28.5 PG (27.0-31.0) Mean Corpuscular Hemoglobin Concent 33.3 G/DL (32.0-36.0) Red Cell Distribution Width 12.8 % (11.6-14.8) Platelet Count 299 K/UL (150-450) Mean Platelet Volume 5.6 FL (6.5-10.1) L Neutrophils (%) (Auto) 73.7 % (45.0-75.0) Lymphocytes (%) (Auto) 19.4 % (20.0-45.0) L Monocytes (%) (Auto) 5.9 % (1.0-10.0) Eosinophils (%) (Auto) 0.6 % (0.0-3.0) Basophils (%) (Auto) 0.4 % (0.0-2.0) Erythrocyte Sedimentation Rate 124 MM/HR (0-20) H Sodium Level 131 MMOL/L (136-145) L Potassium Level 4.1 MMOL/L (3.5-5.1) Chloride Level 98 MMOL/L (98-107) Carbon Dioxide Level 29 MMOL/L (21-32) Anion Gap 4 mmol/L (5-15) L Blood Urea Nitrogen 7 mg/dL (7-18) Creatinine 0.5 MG/DL (0.55-1.30) L Estimat Glomerular Filtration Rate > 60 mL/min (>60) Glucose Level 112 MG/DL (74-106) H Calcium Level 8.3 MG/DL (8.5-10.1) L Phosphorus Level 3.9 MG/DL (2.5-4.9) Magnesium Level 2.0 MG/DL (1.8-2.4) Total Bilirubin 0.3 MG/DL (0.2-1.0) Aspartate Amino Transf (AST/SGOT) 18 U/L (15-37) Alanine Aminotransferase (ALT/SGPT) 30 U/L (12-78) Alkaline Phosphatase 79 U/L (46-116) C-Reactive Protein, Quantitative 9.2 mg/dL (0.00-0.90) H Total Protein 7.4 G/DL (6.4-8.2) Albumin 1.7 G/DL (3.4-5.0) L Globulin 5.7 g/dL Albumin/Globulin Ratio 0.3 (1.0-2.7) L Plan Problems: (1) Empyema Assessment & Plan: s/p VATS. since chest tube removed. wounds healing. no signs of surgical site infection. does have pain on left ribs and likely healing from surgery patient signed out AMA last hospitalization prior to completion of therapy. Repeat chest CT now with larger right sided effusion possible empyema. MRI spine reviewed. spine abscess recommend tap of right side for cultures / eval -patient declined and refused thoracentesis needs spine surgery eval. possibly may need transfer to high level of care IV Abx will follow with Brian Milligan Sep 01, 2017 11:18
[2017-09-01 12:00] VITALS: BP 134/82
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
[2017-09-01 16:00] VITALS: BP 137/76
--- NOTE | 2017-09-01 18:18 | Cardiology Progress Note ---
Assessment/Plan Assessment/Plan 1, Bacteremia, tried to obtain informed consent however she is refusing NURA, continue ABx therapy. Will try TTE. 2. Transient diskitis. 3. Epidural abscess 4. COPD 5. HCV infection 6. HIV disease Subjective Subjective No cardiac events. Denies chest pain or SOB. Objective Last 24 Hour Vital Signs Date Time Temp Pulse Resp B/P (MAP) Pulse Ox O2 Delivery O2 Flow Rate FiO2 09/01/17 16:00 97.7 94 21 137/76 (96) 96 97.7 09/01/17 14:40 86 21 Room Air 21 09/01/17 12:00 97.7 82 22 134/82 (99) 95 97.7 09/01/17 09:00 Room Air 09/01/17 08:58 98.0 09/01/17 08:00 97.3 86 21 137/80 (99) 95 97.3 09/01/17 04:00 98.0 83 19 121/76 (91) 93 98.0 09/01/17 00:00 97.6 90 19 114/74 (87) 98 97.6 08/31/17 22:19 80 20 Room Air 21 08/31/17 21:00 Room Air 08/31/17 20:00 97.7 80 19 128/75 (92) 92 97.7 Intake and Output 08/31/17 09/01/17 19:00 07:00 Intake Total 890 ml 1130 ml Output Total 2700 ml 1350 ml Balance -1810 ml -220 ml Intake Oral 240 ml 250 ml IV Total 650 ml 880 ml Output Urine Total 2700 ml 1350 ml 2D Echo: EF 65%, Mild LVH, Increased RAP (10 mmHg), Grade I LVDD, RVSP 40 mmHg Laboratory Tests Test 09/01/17 06:00 White Blood Count 8.2 K/UL (4.8-10.8) Red Blood Count 3.23 M/UL (4.70-6.10) L Hemoglobin 9.2 G/DL (14.2-18.0) L Hematocrit 27.7 % (42.0-52.0) L Mean Corpuscular Volume 86 FL (80-99) Mean Corpuscular Hemoglobin 28.5 PG (27.0-31.0) Mean Corpuscular Hemoglobin Concent 33.3 G/DL (32.0-36.0) Red Cell Distribution Width 12.8 % (11.6-14.8) Platelet Count 299 K/UL (150-450) Mean Platelet Volume 5.6 FL (6.5-10.1) L Neutrophils (%) (Auto) 73.7 % (45.0-75.0) Lymphocytes (%) (Auto) 19.4 % (20.0-45.0) L Monocytes (%) (Auto) 5.9 % (1.0-10.0) Eosinophils (%) (Auto) 0.6 % (0.0-3.0) Basophils (%) (Auto) 0.4 % (0.0-2.0) Erythrocyte Sedimentation Rate 124 MM/HR (0-20) H Sodium Level 131 MMOL/L (136-145) L Potassium Level 4.1 MMOL/L (3.5-5.1) Chloride Level 98 MMOL/L (98-107) Carbon Dioxide Level 29 MMOL/L (21-32) Anion Gap 4 mmol/L (5-15) L Blood Urea Nitrogen 7 mg/dL (7-18) Creatinine 0.5 MG/DL (0.55-1.30) L Estimat Glomerular Filtration Rate > 60 mL/min (>60) Glucose Level 112 MG/DL (74-106) H Calcium Level 8.3 MG/DL (8.5-10.1) L Phosphorus Level 3.9 MG/DL (2.5-4.9) Magnesium Level 2.0 MG/DL (1.8-2.4) Total Bilirubin 0.3 MG/DL (0.2-1.0) Aspartate Amino Transf (AST/SGOT) 18 U/L (15-37) Alanine Aminotransferase (ALT/SGPT) 30 U/L (12-78) Alkaline Phosphatase 79 U/L (46-116) C-Reactive Protein, Quantitative 9.2 mg/dL (0.00-0.90) H Total Protein 7.4 G/DL (6.4-8.2) Albumin 1.7 G/DL (3.4-5.0) L Globulin 5.7 g/dL Albumin/Globulin Ratio 0.3 (1.0-2.7) L Microbiology Date/Time Source Procedure Growth Status 08/30/17 15:45 Blood Blood Culture - Preliminary NO GROWTH AFTER 24 HOURS Resulted 08/30/17 15:30 Blood Blood Culture - Preliminary NO GROWTH AFTER 24 HOURS Resulted Objective HEENT: Normocephalic, atraumatic, PERRLA, EOMI, No pale conjunctivae. No icterus. NECK: No JVD, no carotid bruit. CHEST: Clear HEART: Normal S1 and S2, no murmurs, gallops or rubs. ABDOMEN: Soft and nontender, no hepatosplenomegaly, + BS. BACK: The patient has tenderness in the lower thoracic and lumbar area. EXTREMITIES: No edema , clubbing or cyanosis. Omid Tellez MD Sep 01, 2017 18:18
--- NOTE | 2017-09-01 18:22 | Pulmonology Progress Note ---
Assessment/Plan Problems: (1) Epidural abscess (2) Sepsis (3) Osteomyelitis (4) COPD (chronic obstructive pulmonary disease) (5) Hypoalbuminemia (6) Hepatitis C (7) HIV (human immunodeficiency virus infection) (8) Pleural effusion Assessment/Plan pain management doing better spine surgery evaluation can not be done at this facility iv abx check electrolytes symptomatic treatment transfer to higher level of care Subjective ROS Limited/Unobtainable: No Allergies: Coded Allergies: No Known Allergies (Unverified , 08/06/17) Objective Last 24 Hour Vital Signs Date Time Temp Pulse Resp B/P (MAP) Pulse Ox O2 Delivery O2 Flow Rate FiO2 09/01/17 16:00 97.7 94 21 137/76 (96) 96 97.7 09/01/17 14:40 86 21 Room Air 21 09/01/17 12:00 97.7 82 22 134/82 (99) 95 97.7 09/01/17 09:00 Room Air 09/01/17 08:58 98.0 09/01/17 08:00 97.3 86 21 137/80 (99) 95 97.3 09/01/17 04:00 98.0 83 19 121/76 (91) 93 98.0 09/01/17 00:00 97.6 90 19 114/74 (87) 98 97.6 08/31/17 22:19 80 20 Room Air 21 08/31/17 21:00 Room Air 08/31/17 20:00 97.7 80 19 128/75 (92) 92 97.7 Intake and Output 08/31/17 09/01/17 19:00 07:00 Intake Total 890 ml 1130 ml Output Total 2700 ml 1350 ml Balance -1810 ml -220 ml Intake Oral 240 ml 250 ml IV Total 650 ml 880 ml Output Urine Total 2700 ml 1350 ml General Appearance: WD/WN HEENT: normocephalic, anicteric Respiratory/Chest: chest wall non-tender, lungs clear Cardiovascular: normal peripheral pulses, no JVD Abdomen: no organomegaly Genitourinary: normal external genitalia Skin: no rash Microbiology Date/Time Source Procedure Growth Status 08/30/17 15:45 Blood Blood Culture - Preliminary NO GROWTH AFTER 24 HOURS Resulted 08/30/17 15:30 Blood Blood Culture - Preliminary NO GROWTH AFTER 24 HOURS Resulted Laboratory Tests 09/01/17 06:00: White Blood Count 8.2, Red Blood Count 3.23L, Hemoglobin 9.2L, Hematocrit 27.7L , Mean Corpuscular Volume 86, Mean Corpuscular Hemoglobin 28.5, Mean Corpuscular Hemoglobin Concent 33.3, Red Cell Distribution Width 12.8, Platelet Count 299, Mean Platelet Volume 5.6L, Neutrophils (%) (Auto) 73.7, Lymphocytes ( %) (Auto) 19.4L, Monocytes (%) (Auto) 5.9, Eosinophils (%) (Auto) 0.6, Basophils (%) (Auto) 0.4, Erythrocyte Sedimentation Rate 124H, Sodium Level 131L , Potassium Level 4.1, Chloride Level 98, Carbon Dioxide Level 29, Anion Gap 4L , Blood Urea Nitrogen 7, Creatinine 0.5L, Estimat Glomerular Filtration Rate > 60, Glucose Level 112H, Calcium Level 8.3L, Phosphorus Level 3.9, Magnesium Level 2.0, Total Bilirubin 0.3, Aspartate Amino Transf (AST/SGOT) 18, Alanine Aminotransferase (ALT/SGPT) 30, Alkaline Phosphatase 79, C-Reactive Protein, Quantitative 9.2H, Total Protein 7.4, Albumin 1.7L, Globulin 5.7, Albumin/ Globulin Ratio 0.3L Current Medications Medications (Trade) Dose Ordered Sig/Veronica Route PRN Reason Start Time Stop Time Status Last Admin Dose Admin Acetaminophen (Tylenol) 650 mg Q4H PRN ORAL FEVER 08/25/17 08:15 09/24/17 08:14 08/27/17 13:06 Acetaminophen/ Hydrocodone Bitart ([place] 10/325) 1 tab Q6H PRN ORAL moderate pain 08/28/17 08:45 09/02/17 12:13 09/01/17 00:08 Chlorhexidine Gluconate (Nishi-Hex 2%) 1 applic DAILY@2000 TOPIC 08/29/17 20:00 09/28/17 19:59 08/31/17 22:20 Dextrose (Dextrose 50%) 25 ml STAT PRN IV Hypoglycemia 08/25/17 08:15 09/24/17 08:14 Dextrose (Dextrose 50%) 50 ml STAT PRN IV Hypoglycemia 08/25/17 08:30 09/24/17 08:29 Docusate Sodium (Colace) 100 mg THREE TIMES A DAY ORAL 08/30/17 13:00 09/29/17 12:59 09/01/17 18:18 Duloxetine HCl (Cymbalta) 30 mg DAILY ORAL 08/25/17 09:00 09/24/17 08:59 09/01/17 09:32 Gabapentin (Neurontin) 300 mg THREE TIMES A DAY ORAL 08/25/17 09:00 09/24/17 08:59 09/01/17 18:18 Heparin Sodium (Porcine) (Heparin 5000 units/ml) 5,000 units EVERY 12 HOURS SUBQ 08/25/17 09:00 09/24/17 08:59 09/01/17 09:33 Hydromorphone HCl (Dilaudid) 1 mg Q3H PRN IVP severe pain 08/31/17 14:00 09/04/17 08:44 09/01/17 15:08 Ondansetron HCl (Zofran) 4 mg Q6H PRN IVP Nausea & Vomiting 08/25/17 08:15 09/24/17 08:14 Oxacillin Sodium 2 gm/Sodium Chloride 110 ml @ 220 mls/hr Q4HR IVPB 08/25/17 21:00 09/07/17 20:59 09/01/17 18:18 Polyethylene Glycol (Miralax) 17 gm DAILYPRN PRN ORAL Constipation 08/25/17 08:15 09/24/17 08:14 08/28/17 09:04 Sodium Chloride 1,000 ml @ 50 mls/hr Q20H IV 08/26/17 13:45 09/25/17 13:44 09/01/17 09:33 Sally Cox MD Sep 01, 2017 18:22
[2017-09-01 20:00] VITALS: BP 135/76
[2017-09-01] MEDS: Dyna-Hex 2% Top Sol 2oz TOPIC SCH (20:09)
[2017-09-02] VITALS: BP 127/83
[2017-09-02] MEDS: Oxacillin 2 GM in NS 110 ML IVPB SCH ×6 (01:22→20:26)
[2017-09-02] MEDS: HYDROmorphone 1mg/ml Carpuject IVP PRN ×8 (01:23→23:19)
[2017-09-02 04:00] VITALS: BP 131/83
--- NOTE | 2017-09-02 06:33 | General Progress Note ---
Assessment/Plan Problem List: (1) Chronic pain ICD Codes: G89.29 - Other chronic pain SNOMED: 01603197 (2) Hypokalemia ICD Codes: E87.6 - Hypokalemia SNOMED: 91886428 (3) HIV (human immunodeficiency virus infection) ICD Codes: B20 - Human immunodeficiency virus [HIV] disease SNOMED: 76816596 (4) Sepsis ICD Codes: A41.9 - Sepsis, unspecified organism SNOMED: 29877782 Qualifiers: Qualified Codes: A41.9 - Sepsis, unspecified organism (5) Empyema ICD Codes: J86.9 - Pyothorax without fistula SNOMED: 896368215 (6) Drug abuse and dependence ICD Codes: F19.20 - Other psychoactive substance dependence, uncomplicated SNOMED: 1536703 (7) Epidural abscess ICD Codes: G06.2 - Extradural and subdural abscess, unspecified SNOMED: 75888664 Status: unchanged Assessment/Plan ot pt diet abx neph f/u cbc bmp am higher level care prn Subjective Constitutional: Reports: weakness Allergies: Coded Allergies: No Known Allergies (Unverified , 08/06/17) All Systems: reviewed and negative except above Subjective sleepy calm Objective Last 24 Hour Vital Signs Date Time Temp Pulse Resp B/P (MAP) Pulse Ox O2 Delivery O2 Flow Rate FiO2 09/02/17 04:00 97.9 93 19 131/83 (99) 96 97.9 09/02/17 00:00 98.3 92 19 127/83 (98) 93 98.3 09/01/17 21:00 Room Air 09/01/17 20:00 98.0 89 19 135/76 (95) 92 98.0 09/01/17 19:02 82 18 Room Air 21 09/01/17 16:00 97.7 94 21 137/76 (96) 96 97.7 09/01/17 14:40 86 21 Room Air 21 09/01/17 12:00 97.7 82 22 134/82 (99) 95 97.7 09/01/17 09:00 Room Air 09/01/17 08:58 98.0 09/01/17 08:00 97.3 86 21 137/80 (99) 95 97.3 Intake and Output 09/01/17 09/02/17 19:00 07:00 Intake Total 1390 ml 1220 ml Output Total 2200 ml 2600 ml Balance -810 ml -1380 ml Intake Oral 720 ml 550 ml IV Total 670 ml 670 ml Output Urine Total 2200 ml 2600 ml Height (Feet): 5 Height (Inches): 7.00 Weight (Pounds): 159 General Appearance: lethargic EENT: normal ENT inspection Neck: normal alignment Cardiovascular: normal peripheral pulses, normal rate, regular rhythm Respiratory/Chest: chest wall non-tender, lungs clear, normal breath sounds Abdomen: normal bowel sounds, non tender, soft Extremities: normal inspection Edema: no edema noted Arm (L), no edema noted Arm (R), no edema noted Leg (L), no edema noted Leg (R), no edema noted Pedal (L), no edema noted Pedal (R), no edema noted Generalized Neurologic: motor weakness Skin: normal pigmentation, warm/dry Chemo Dietrich DO Sep 02, 2017 06:33
[2017-09-02 07:02] LABS: BASOPHILS % (AUTO) 0.2 % (0.0-2.0); EOSINOPHILS % (AUTO) 0.7 % (0.0-3.0); HEMATOCRIT 31.3 % (42.0-52.0); HEMOGLOBIN 10.5 G/DL (14.2-18.0); LYMPHOCYTES % (AUTO) 20.9 % (20.0-45.0); MEAN CORPUSCULAR VOLUME 84 FL (80-99); MONOCYTES % (AUTO) 6.1 % (1.0-10.0); NEUTROPHILS % (AUTO) 72.1 % (45.0-75.0); PLATELET COUNT 297 K/UL (150-450); RED BLOOD COUNT 3.72 M/UL (4.70-6.10); RED CELL DISTRIBUTION WIDTH 13.1 % (11.6-14.8)
--- NOTE | 2017-09-02 07:15 | Progress Note ---
DATE: 09/02/2017 SUBJECTIVE: The patient is a male patient with sepsis and empyema. He has got some confusion, disorganized thought process, and mood lability worsened by stress of his medical illness and that is why, he does require daily psychiatric consultation. He has got some mood lability, agitation, irritability, and disorganized thought process. Overall, that is why he does require daily psychiatric consultation. MENTAL STATUS EXAMINATION: This is a 56-year-old male. Appearance is disheveled. Attitude, irritable and agitated. Affect, guarded and restricted. Intellect poor. Mood, depressed and anxious. Motor activity, psychomotor agitation. Attention span is poor. Orientation x2. Speech is pressured. Thought process, disorganized and illogical. Thought content, auditory hallucinations and paranoid delusions. Insight and judgment is poor. DIAGNOSIS: Major depression with psychotic features. PLAN: Plan is to treat him with Cymbalta 30 mg daily, Neurontin 300 mg three times a day, and provide him with 18 to 20 minutes of cognitive behavioral therapy. During the cognitive behavioral therapy sessions, we will go over and help him recognize his negative thought pattern and help him convert those to positive thoughts to reduce depression and anxiety, improve his mood and reduce impulsivity. Seen and assessed at bedside. Chart reviewed. Discussed with staff. Seen and assessed in his room. Gudelia Villa M.D. DR: Gene JOB#: [id number] CC: KRISH
[2017-09-02 07:17] LABS: ANION GAP 6 mmol/L (5-15); BLOOD UREA NITROGEN 6 mg/dL (7-18); CALCIUM 8.2 MG/DL (8.5-10.1); CARBON DIOXIDE 30 MMOL/L (21-32); CHLORIDE 98 MMOL/L (98-107); CREATININE 0.6 MG/DL (0.55-1.30); SODIUM 134 MMOL/L (136-145)
[2017-09-02 08:00] VITALS: BP 143/85
[2017-09-02] MEDS: Docusate 100mg cap ORAL SCH ×3 (08:00→17:17)
[2017-09-02] MEDS: DULoxetine 30mg cap ORAL SCH (08:00)
[2017-09-02] MEDS: Heparin 5000 units/ml inj SUBQ SCH ×2 (08:13→20:19)
--- NOTE | 2017-09-02 11:39 | General Surgery Progress Note ---
General Surgery-Progress Note Subjective Additional Comments no acute events Objective Last 24 Hour Vital Signs Date Time Temp Pulse Resp B/P (MAP) Pulse Ox O2 Delivery O2 Flow Rate FiO2 09/02/17 11:04 97.9 09/02/17 09:00 Room Air 09/02/17 08:30 97.9 09/02/17 08:00 97.3 90 18 143/85 (104) 94 97.3 09/02/17 08:00 97.9 09/02/17 04:00 97.9 93 19 131/83 (99) 96 97.9 09/02/17 00:00 98.3 92 19 127/83 (98) 93 98.3 09/01/17 21:00 Room Air 09/01/17 20:00 98.0 89 19 135/76 (95) 92 98.0 09/01/17 19:02 82 18 Room Air 21 09/01/17 16:00 97.7 94 21 137/76 (96) 96 97.7 09/01/17 14:40 86 21 Room Air 21 09/01/17 12:00 97.7 82 22 134/82 (99) 95 97.7 I&O Intake and Output 09/01/17 09/02/17 19:00 07:00 Intake Total 1390 ml 1220 ml Output Total 2200 ml 2600 ml Balance -810 ml -1380 ml Intake Oral 720 ml 550 ml IV Total 670 ml 670 ml Output Urine Total 2200 ml 2600 ml Wound: clean, dry Drains: none Cardiovascular: RSR Respiratory: clear Abdomen: soft, flat, non-tender, present bowel sounds Extremities: no cyanosis Laboratory Tests Test 09/02/17 06:00 White Blood Count 8.0 K/UL (4.8-10.8) Red Blood Count 3.72 M/UL (4.70-6.10) L Hemoglobin 10.5 G/DL (14.2-18.0) L Hematocrit 31.3 % (42.0-52.0) L Mean Corpuscular Volume 84 FL (80-99) Mean Corpuscular Hemoglobin 28.3 PG (27.0-31.0) Mean Corpuscular Hemoglobin Concent 33.5 G/DL (32.0-36.0) Red Cell Distribution Width 13.1 % (11.6-14.8) Platelet Count 297 K/UL (150-450) Mean Platelet Volume 5.7 FL (6.5-10.1) L Neutrophils (%) (Auto) 72.1 % (45.0-75.0) Lymphocytes (%) (Auto) 20.9 % (20.0-45.0) Monocytes (%) (Auto) 6.1 % (1.0-10.0) Eosinophils (%) (Auto) 0.7 % (0.0-3.0) Basophils (%) (Auto) 0.2 % (0.0-2.0) Sodium Level 134 MMOL/L (136-145) L Potassium Level 4.0 MMOL/L (3.5-5.1) Chloride Level 98 MMOL/L (98-107) Carbon Dioxide Level 30 MMOL/L (21-32) Anion Gap 6 mmol/L (5-15) Blood Urea Nitrogen 6 mg/dL (7-18) L Creatinine 0.6 MG/DL (0.55-1.30) Estimat Glomerular Filtration Rate > 60 mL/min (>60) Glucose Level 112 MG/DL (74-106) H Calcium Level 8.2 MG/DL (8.5-10.1) L Plan Problems: (1) Empyema Assessment & Plan: s/p VATS. since chest tube removed. wounds healing. no signs of surgical site infection. does have pain on left ribs and likely healing from surgery patient signed out AMA last hospitalization prior to completion of therapy. Repeat chest CT now with larger right sided effusion possible empyema. MRI spine reviewed. spine abscess recommend tap of right side for cultures / eval -patient declined and refused thoracentesis needs spine surgery eval. possibly may need transfer to high level of care IV Abx will follow with Brian Milligan Sep 02, 2017 11:39
[2017-09-02 12:00] VITALS: BP 129/80
--- NOTE | 2017-09-02 12:24 | Pulmonology Progress Note ---
Assessment/Plan Problems: (1) Epidural abscess (2) Sepsis (3) Osteomyelitis (4) COPD (chronic obstructive pulmonary disease) (5) Hypoalbuminemia (6) Hepatitis C (7) HIV (human immunodeficiency virus infection) (8) Pleural effusion Assessment/Plan pain management no new complains spine surgery evaluation can not be done at this facility iv abx check electrolytes symptomatic treatment transfer to higher level of care Subjective ROS Limited/Unobtainable: No Allergies: Coded Allergies: No Known Allergies (Unverified , 08/06/17) Objective Last 24 Hour Vital Signs Date Time Temp Pulse Resp B/P (MAP) Pulse Ox O2 Delivery O2 Flow Rate FiO2 09/02/17 11:34 97.9 09/02/17 11:04 97.9 09/02/17 09:00 Room Air 09/02/17 08:00 97.3 90 18 143/85 (104) 94 97.3 09/02/17 08:00 97.9 09/02/17 04:00 97.9 93 19 131/83 (99) 96 97.9 09/02/17 00:00 98.3 92 19 127/83 (98) 93 98.3 09/01/17 21:00 Room Air 09/01/17 20:00 98.0 89 19 135/76 (95) 92 98.0 09/01/17 19:02 82 18 Room Air 21 09/01/17 16:00 97.7 94 21 137/76 (96) 96 97.7 09/01/17 14:40 86 21 Room Air 21 Intake and Output 09/01/17 09/02/17 19:00 07:00 Intake Total 1390 ml 1270 ml Output Total 2200 ml 2600 ml Balance -810 ml -1330 ml Intake Oral 720 ml 550 ml IV Total 670 ml 720 ml Output Urine Total 2200 ml 2600 ml General Appearance: WD/WN HEENT: normocephalic, anicteric Respiratory/Chest: chest wall non-tender, lungs clear Cardiovascular: normal peripheral pulses, normal rate, regular rhythm Abdomen: normal bowel sounds, soft, non tender Genitourinary: normal external genitalia Skin: no rash, no lesions Microbiology Date/Time Source Procedure Growth Status 08/30/17 15:45 Blood Blood Culture - Preliminary NO GROWTH AFTER 48 HOURS Resulted 08/30/17 15:30 Blood Blood Culture - Preliminary NO GROWTH AFTER 48 HOURS Resulted Laboratory Tests 09/02/17 06:00: White Blood Count 8.0, Red Blood Count 3.72L, Hemoglobin 10.5L, Hematocrit 31.3L , Mean Corpuscular Volume 84, Mean Corpuscular Hemoglobin 28.3, Mean Corpuscular Hemoglobin Concent 33.5, Red Cell Distribution Width 13.1, Platelet Count 297, Mean Platelet Volume 5.7L, Neutrophils (%) (Auto) 72.1, Lymphocytes ( %) (Auto) 20.9, Monocytes (%) (Auto) 6.1, Eosinophils (%) (Auto) 0.7, Basophils (%) (Auto) 0.2, Sodium Level 134L, Potassium Level 4.0, Chloride Level 98, Carbon Dioxide Level 30, Anion Gap 6, Blood Urea Nitrogen 6L, Creatinine 0.6, Estimat Glomerular Filtration Rate > 60, Glucose Level 112H, Calcium Level 8.2L Current Medications Medications (Trade) Dose Ordered Sig/Veronica Route PRN Reason Start Time Stop Time Status Last Admin Dose Admin Acetaminophen (Tylenol) 650 mg Q4H PRN ORAL FEVER 08/25/17 08:15 09/24/17 08:14 08/27/17 13:06 Chlorhexidine Gluconate (Nishi-Hex 2%) 1 applic DAILY@1999 TOPIC 08/29/17 20:00 09/28/17 19:59 09/01/17 20:09 Dextrose (Dextrose 50%) 25 ml STAT PRN IV Hypoglycemia 08/25/17 08:15 09/24/17 08:14 Dextrose (Dextrose 50%) 50 ml STAT PRN IV Hypoglycemia 08/25/17 08:30 09/24/17 08:29 Docusate Sodium (Colace) 100 mg THREE TIMES A DAY ORAL 08/30/17 13:00 09/29/17 12:59 09/02/17 08:00 Duloxetine HCl (Cymbalta) 30 mg DAILY ORAL 08/25/17 09:00 09/24/17 08:59 09/02/17 08:00 Gabapentin (Neurontin) 300 mg THREE TIMES A DAY ORAL 08/25/17 09:00 09/24/17 08:59 09/02/17 08:00 Heparin Sodium (Porcine) (Heparin 5000 units/ml) 5,000 units EVERY 12 HOURS SUBQ 08/25/17 09:00 09/24/17 08:59 09/02/17 08:13 Hydromorphone HCl (Dilaudid) 1 mg Q3H PRN IVP severe pain 08/31/17 14:00 09/04/17 08:44 09/02/17 11:04 Ondansetron HCl (Zofran) 4 mg Q6H PRN IVP Nausea & Vomiting 08/25/17 08:15 09/24/17 08:14 Oxacillin Sodium 2 gm/Sodium Chloride 110 ml @ 220 mls/hr Q4HR IVPB 08/25/17 21:00 09/07/17 20:59 09/02/17 08:14 Polyethylene Glycol (Miralax) 17 gm DAILYPRN PRN ORAL Constipation 08/25/17 08:15 09/24/17 08:14 08/28/17 09:04 Sodium Chloride 1,000 ml @ 50 mls/hr Q20H IV 08/26/17 13:45 09/25/17 13:44 09/02/17 04:37 Sally Cox MD Sep 02, 2017 12:24
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
--- NOTE | 2017-09-02 14:31 | General Progress Note ---
Assessment/Plan Assessment/Plan (1) Left sided wall chest pain (2) Lung effusion possible empyema (3) S/p VATS (4) Intercostal Neuropathy (5) Lumbar Spondylosis (6) T9-10 discitis/osteomyelitis with epidural abscess (7) Cervical spinal stenosis We will continue Dilaudid, [place] and Neurontin. Recommend Neurosurgical consultation as per manager portable. D/w Dr. Stevens and he concurred. Subjective Date patient seen: Sep 02, 2017 Time patient seen: 02:00 - PM Allergies: Coded Allergies: No Known Allergies (Unverified , 08/06/17) Subjective REVIEW OF SYSTEMS: Denies rash, fever, chills, sweating, dizziness, drowsiness, blurred vision, sore throat, or change in weight. No nausea, vomiting, diarrhea, or blood in the stool or urine. He is complaining of left chest wall pain and back pain. SUBJECTIVE: Patient reports that the pain is unchanged and is tolerated on the Dilaudid and [place]. Waiting on transfer to higher level of care hospital. Objective Last 24 Hour Vital Signs Date Time Temp Pulse Resp B/P (MAP) Pulse Ox O2 Delivery O2 Flow Rate FiO2 09/02/17 14:15 97.9 09/02/17 11:34 97.9 09/02/17 11:04 97.9 09/02/17 09:00 Room Air 09/02/17 08:00 97.3 90 18 143/85 (104) 94 97.3 09/02/17 08:00 97.9 09/02/17 04:00 97.9 93 19 131/83 (99) 96 97.9 09/02/17 00:00 98.3 92 19 127/83 (98) 93 98.3 09/01/17 21:00 Room Air 09/01/17 20:00 98.0 89 19 135/76 (95) 92 98.0 09/01/17 19:02 82 18 Room Air 21 09/01/17 16:00 97.7 94 21 137/76 (96) 96 97.7 09/01/17 14:40 86 21 Room Air 21 Intake and Output 09/01/17 09/02/17 19:00 07:00 Intake Total 1390 ml 1270 ml Output Total 2200 ml 2600 ml Balance -810 ml -1330 ml Intake Oral 720 ml 550 ml IV Total 670 ml 720 ml Output Urine Total 2200 ml 2600 ml Laboratory Tests 09/02/17 06:00: White Blood Count 8.0, Red Blood Count 3.72L, Hemoglobin 10.5L, Hematocrit 31.3L , Mean Corpuscular Volume 84, Mean Corpuscular Hemoglobin 28.3, Mean Corpuscular Hemoglobin Concent 33.5, Red Cell Distribution Width 13.1, Platelet Count 297, Mean Platelet Volume 5.7L, Neutrophils (%) (Auto) 72.1, Lymphocytes ( %) (Auto) 20.9, Monocytes (%) (Auto) 6.1, Eosinophils (%) (Auto) 0.7, Basophils (%) (Auto) 0.2, Sodium Level 134L, Potassium Level 4.0, Chloride Level 98, Carbon Dioxide Level 30, Anion Gap 6, Blood Urea Nitrogen 6L, Creatinine 0.6, Estimat Glomerular Filtration Rate > 60, Glucose Level 112H, Calcium Level 8.2L Height (Feet): 5 Height (Inches): 7.00 Weight (Pounds): 159 Objective GENERAL: Alert, awake, and oriented. LUNGS: Decreased breath sounds bilaterally. HEART: S1 S2 Regular. ABDOMEN: Benign. EXTREMITIES: No cyanosis. No clubbing. No edema. NEURO: No changes. Mark Rausch Sep 02, 2017 14:31
[2017-09-02] MEDS: Miralax 17gm pkt ORAL PRN (14:38)
[2017-09-02 16:00] VITALS: BP 130/82
[2017-09-02 20:00] VITALS: BP 120/82
[2017-09-02] MEDS: Dyna-Hex 2% Top Sol 2oz TOPIC SCH (20:18)
--- NOTE | 2017-09-02 23:37 | Cardiology Progress Note ---
Assessment/Plan Assessment/Plan 1, Bacteremia, tried to obtain informed consent however she is refusing NURA, continue ABx therapy. Awaiting 2D echo. 2. Transient diskitis. 3. Epidural abscess 4. COPD 5. HCV infection 6. HIV disease Subjective Subjective No cardiac events. Denies chest pain or SOB. Objective Last 24 Hour Vital Signs Date Time Temp Pulse Resp B/P (MAP) Pulse Ox O2 Delivery O2 Flow Rate FiO2 09/02/17 21:00 Room Air 09/02/17 20:00 98.3 103 21 120/82 (95) 93 98.3 09/02/17 19:58 102 18 Room Air 21 09/02/17 17:47 98.3 09/02/17 17:17 98.3 09/02/17 16:00 98.3 79 18 130/82 (98) 96 98.3 09/02/17 14:15 97.9 09/02/17 12:00 97.9 90 20 129/80 (96) 94 97.9 09/02/17 11:04 97.9 09/02/17 09:00 Room Air 09/02/17 08:00 97.3 90 18 143/85 (104) 94 97.3 09/02/17 08:00 97.9 09/02/17 04:00 97.9 93 19 131/83 (99) 96 97.9 09/02/17 00:00 98.3 92 19 127/83 (98) 93 98.3 Intake and Output 09/01/17 09/02/17 19:00 07:00 Intake Total 1390 ml 1270 ml Output Total 2200 ml 2600 ml Balance -810 ml -1330 ml Intake Oral 720 ml 550 ml IV Total 670 ml 720 ml Output Urine Total 2200 ml 2600 ml Laboratory Tests Test 09/02/17 06:00 09/02/17 18:30 White Blood Count 8.0 K/UL (4.8-10.8) Red Blood Count 3.72 M/UL (4.70-6.10) L Hemoglobin 10.5 G/DL (14.2-18.0) L Hematocrit 31.3 % (42.0-52.0) L Mean Corpuscular Volume 84 FL (80-99) Mean Corpuscular Hemoglobin 28.3 PG (27.0-31.0) Mean Corpuscular Hemoglobin Concent 33.5 G/DL (32.0-36.0) Red Cell Distribution Width 13.1 % (11.6-14.8) Platelet Count 297 K/UL (150-450) Mean Platelet Volume 5.7 FL (6.5-10.1) L Neutrophils (%) (Auto) 72.1 % (45.0-75.0) Lymphocytes (%) (Auto) 20.9 % (20.0-45.0) Monocytes (%) (Auto) 6.1 % (1.0-10.0) Eosinophils (%) (Auto) 0.7 % (0.0-3.0) Basophils (%) (Auto) 0.2 % (0.0-2.0) Sodium Level 134 MMOL/L (136-145) L Potassium Level 4.0 MMOL/L (3.5-5.1) Chloride Level 98 MMOL/L (98-107) Carbon Dioxide Level 30 MMOL/L (21-32) Anion Gap 6 mmol/L (5-15) Blood Urea Nitrogen 6 mg/dL (7-18) L Creatinine 0.6 MG/DL (0.55-1.30) Estimat Glomerular Filtration Rate > 60 mL/min (>60) Glucose Level 112 MG/DL (74-106) H Calcium Level 8.2 MG/DL (8.5-10.1) L Stool Occult Blood Pending Objective HEENT: Normocephalic, atraumatic, PERRLA, EOMI, No pale conjunctivae. No icterus. NECK: No JVD, no carotid bruit. CHEST: Normal breath sounds HEART: Normal S1 and S2, no murmurs, gallops or rubs. ABDOMEN: Soft and nontender, no hepatosplenomegaly, + BS. BACK: The patient has tenderness in the lower thoracic and lumbar area. EXTREMITIES: No edema , clubbing or cyanosis. Omid Tellez MD Sep 02, 2017 23:37
[2017-09-03] VITALS (7 sets, daily range): BP systolic 109–151; BP diastolic 56–91
[2017-09-03] MEDS: Oxacillin 2 GM in NS 110 ML IVPB SCH ×6 (01:14→20:40)
[2017-09-03] MEDS: HYDROmorphone 1mg/ml Carpuject IVP PRN ×7 (02:27→23:25)
[2017-09-03 06:50] LABS: BASOPHILS % (AUTO) 0.4 % (0.0-2.0); EOSINOPHILS % (AUTO) 0.2 % (0.0-3.0); HEMATOCRIT 37.1 % (42.0-52.0); HEMOGLOBIN 12.1 G/DL (14.2-18.0); LYMPHOCYTES % (AUTO) 13.4 % (20.0-45.0); MEAN CORPUSCULAR VOLUME 86 FL (80-99); MONOCYTES % (AUTO) 4.5 % (1.0-10.0); NEUTROPHILS % (AUTO) 81.6 % (45.0-75.0); PLATELET COUNT 344 K/UL (150-450); RED BLOOD COUNT 4.31 M/UL (4.70-6.10); RED CELL DISTRIBUTION WIDTH 13.1 % (11.6-14.8); WHITE BLOOD COUNT 15.1 K/UL (4.8-10.8)
[2017-09-03 07:00] LABS: ANION GAP 8 mmol/L (5-15); BLOOD UREA NITROGEN 15 mg/dL (7-18); CALCIUM 8.4 MG/DL (8.5-10.1); CARBON DIOXIDE 27 MMOL/L (21-32); CHLORIDE 99 MMOL/L (98-107); CREATININE 0.6 MG/DL (0.55-1.30); POTASSIUM 4.4 MMOL/L (3.5-5.1); SODIUM 134 MMOL/L (136-145)
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
--- NOTE | 2017-09-03 08:30 | General Progress Note ---
Assessment/Plan Assessment/Plan (1) Left sided wall chest pain (2) Lung effusion possible empyema (3) S/p VATS (4) Intercostal Neuropathy (5) Lumbar Spondylosis (6) T9-10 discitis/osteomyelitis with epidural abscess (7) Cervical spinal stenosis We will continue Dilaudid, [place] and Neurontin. Recommend Neurosurgical consultation as per career technical education instructor. D/w Dr. Stevens and he concurred. Subjective Date patient seen: Sep 03, 2017 Time patient seen: 07:00 - am Allergies: Coded Allergies: No Known Allergies (Unverified , 08/06/17) Subjective REVIEW OF SYSTEMS: Denies rash, fever, chills, sweating, dizziness, drowsiness, blurred vision, sore throat, or change in weight. No nausea, vomiting, diarrhea, or blood in the stool or urine. He is complaining of left chest wall pain and back pain. SUBJECTIVE: Patient is in bed pain is unchanged and tolerated on the Dilaudid and norco. He has no new complaints. Objective Last 24 Hour Vital Signs Date Time Temp Pulse Resp B/P (MAP) Pulse Ox O2 Delivery O2 Flow Rate FiO2 09/03/17 04:00 97.1 108 19 123/82 (96) 93 97.1 09/03/17 00:00 97.8 104 19 109/73 (85) 92 97.8 09/02/17 21:00 Room Air 09/02/17 20:00 98.3 103 21 120/82 (95) 93 98.3 09/02/17 19:58 102 18 Room Air 21 09/02/17 17:47 98.3 09/02/17 17:17 98.3 09/02/17 16:00 98.3 79 18 130/82 (98) 96 98.3 09/02/17 14:15 97.9 09/02/17 12:00 97.9 90 20 129/80 (96) 94 97.9 09/02/17 11:04 97.9 09/02/17 09:00 Room Air Intake and Output 09/02/17 09/03/17 19:00 07:00 Intake Total 1400 ml 1050 ml Output Total 800 ml 500 ml Balance 600 ml 550 ml Intake Oral 450 ml IV Total 730 ml 600 ml Other 670 ml Output Urine Total 800 ml 500 ml Laboratory Tests 09/02/17 18:30: Stool Occult Blood [Pending] 09/03/17 06:25: White Blood Count 15.1#H, Red Blood Count 4.31L, Hemoglobin 12.1L, Hematocrit 37.1L, Mean Corpuscular Volume 86, Mean Corpuscular Hemoglobin 28.1, Mean Corpuscular Hemoglobin Concent 32.6, Red Cell Distribution Width 13.1, Platelet Count 344, Mean Platelet Volume 6.4L, Neutrophils (%) (Auto) 81.6H, Lymphocytes (%) (Auto) 13.4L, Monocytes (%) (Auto) 4.5, Eosinophils (%) (Auto) 0.2, Basophils (%) (Auto) 0.4, Sodium Level 134L, Potassium Level 4.4, Chloride Level 99, Carbon Dioxide Level 27, Anion Gap 8, Blood Urea Nitrogen 15, Creatinine 0.6, Estimat Glomerular Filtration Rate > 60, Glucose Level 154H, Calcium Level 8.4L Height (Feet): 5 Height (Inches): 7.00 Weight (Pounds): 159 Objective GENERAL: Alert, awake, and oriented. LUNGS: Decreased breath sounds bilaterally. HEART: S1 S2 Regular. ABDOMEN: Benign. EXTREMITIES: No cyanosis. No clubbing. No edema. NEURO: No changes. Mark Rausch Sep 03, 2017 08:30
[2017-09-03] MEDS: DULoxetine 30mg cap ORAL SCH (08:39)
[2017-09-03] MEDS: Docusate 100mg cap ORAL SCH ×3 (08:39→17:40)
[2017-09-03] MEDS: Heparin 5000 units/ml inj SUBQ SCH ×2 (08:46→20:39)
--- NOTE | 2017-09-03 13:51 | General Progress Note ---
Assessment/Plan Problem List: (1) Chronic pain ICD Codes: G89.29 - Other chronic pain SNOMED: 35169623 (2) Hypokalemia ICD Codes: E87.6 - Hypokalemia SNOMED: 65192637 (3) HIV (human immunodeficiency virus infection) ICD Codes: B20 - Human immunodeficiency virus [HIV] disease SNOMED: 01463441 (4) Sepsis ICD Codes: A41.9 - Sepsis, unspecified organism SNOMED: 73562171 Qualifiers: Qualified Codes: A41.9 - Sepsis, unspecified organism (5) Empyema ICD Codes: J86.9 - Pyothorax without fistula SNOMED: 800325889 (6) Drug abuse and dependence ICD Codes: F19.20 - Other psychoactive substance dependence, uncomplicated SNOMED: 2627501 (7) Epidural abscess ICD Codes: G06.2 - Extradural and subdural abscess, unspecified SNOMED: 47670653 Status: unchanged Assessment/Plan ot pt diet abx neph f/u cbc bmp am higher level care prn Subjective Constitutional: Reports: weakness Allergies: Coded Allergies: No Known Allergies (Unverified , 08/06/17) All Systems: reviewed and negative except above Subjective sleepy calm Objective Last 24 Hour Vital Signs Date Time Temp Pulse Resp B/P (MAP) Pulse Ox O2 Delivery O2 Flow Rate FiO2 09/03/17 13:15 97.8 09/03/17 12:45 97.8 09/03/17 12:02 121/79 (93) 09/03/17 11:53 97.8 59 18 117/56 (76) 94 97.8 09/03/17 09:00 Room Air 09/03/17 08:43 97.1 09/03/17 08:00 97.1 87 17 151/91 (111) 94 97.1 09/03/17 04:00 97.1 108 19 123/82 (96) 93 97.1 09/03/17 00:00 97.8 104 19 109/73 (85) 92 97.8 09/02/17 21:00 Room Air 09/02/17 20:00 98.3 103 21 120/82 (95) 93 98.3 09/02/17 19:58 102 18 Room Air 21 09/02/17 17:17 98.3 09/02/17 16:00 98.3 79 18 130/82 (98) 96 98.3 09/02/17 14:15 97.9 Intake and Output 09/02/17 09/03/17 19:00 07:00 Intake Total 1400 ml 1050 ml Output Total 800 ml 500 ml Balance 600 ml 550 ml Intake Oral 450 ml IV Total 730 ml 600 ml Other 670 ml Output Urine Total 800 ml 500 ml Laboratory Tests 09/02/17 18:30: Stool Occult Blood Negative 09/03/17 06:25: White Blood Count 15.1#H, Red Blood Count 4.31L, Hemoglobin 12.1L, Hematocrit 37.1L, Mean Corpuscular Volume 86, Mean Corpuscular Hemoglobin 28.1, Mean Corpuscular Hemoglobin Concent 32.6, Red Cell Distribution Width 13.1, Platelet Count 344, Mean Platelet Volume 6.4L, Neutrophils (%) (Auto) 81.6H, Lymphocytes (%) (Auto) 13.4L, Monocytes (%) (Auto) 4.5, Eosinophils (%) (Auto) 0.2, Basophils (%) (Auto) 0.4, Sodium Level 134L, Potassium Level 4.4, Chloride Level 99, Carbon Dioxide Level 27, Anion Gap 8, Blood Urea Nitrogen 15, Creatinine 0.6, Estimat Glomerular Filtration Rate > 60, Glucose Level 154H, Calcium Level 8.4L Height (Feet): 5 Height (Inches): 7.00 Weight (Pounds): 159 General Appearance: lethargic EENT: normal ENT inspection Neck: non-tender Cardiovascular: normal peripheral pulses, normal rate, regular rhythm Respiratory/Chest: chest wall non-tender, lungs clear, normal breath sounds Abdomen: normal bowel sounds, non tender, soft Extremities: normal inspection Edema: no edema noted Arm (L), no edema noted Arm (R), no edema noted Leg (L), no edema noted Leg (R), no edema noted Pedal (L), no edema noted Pedal (R), no edema noted Generalized Neurologic: motor weakness Skin: normal pigmentation, warm/dry Chemo Dietrich DO Sep 03, 2017 13:51
--- NOTE | 2017-09-03 13:53 | Pulmonology Progress Note ---
Assessment/Plan Problems: (1) Epidural abscess (2) Sepsis (3) Osteomyelitis (4) COPD (chronic obstructive pulmonary disease) (5) Hypoalbuminemia (6) Hepatitis C (7) HIV (human immunodeficiency virus infection) (8) Pleural effusion Assessment/Plan pain management feeling better spine surgery evaluation can not be done at this facility iv abx check electrolytes symptomatic treatment transfer to higher level of care Subjective ROS Limited/Unobtainable: No Constitutional: Reports: no symptoms HEENT: Repors: no symptoms Respiratory: Reports: no symptoms Allergies: Coded Allergies: No Known Allergies (Unverified , 08/06/17) Objective Last 24 Hour Vital Signs Date Time Temp Pulse Resp B/P (MAP) Pulse Ox O2 Delivery O2 Flow Rate FiO2 09/03/17 13:15 97.8 09/03/17 12:45 97.8 09/03/17 12:02 121/79 (93) 09/03/17 11:53 97.8 59 18 117/56 (76) 94 97.8 09/03/17 09:00 Room Air 09/03/17 08:43 97.1 09/03/17 08:00 97.1 87 17 151/91 (111) 94 97.1 09/03/17 04:00 97.1 108 19 123/82 (96) 93 97.1 09/03/17 00:00 97.8 104 19 109/73 (85) 92 97.8 09/02/17 21:00 Room Air 09/02/17 20:00 98.3 103 21 120/82 (95) 93 98.3 09/02/17 19:58 102 18 Room Air 21 09/02/17 17:17 98.3 09/02/17 16:00 98.3 79 18 130/82 (98) 96 98.3 09/02/17 14:15 97.9 Intake and Output 09/02/17 09/03/17 19:00 07:00 Intake Total 1400 ml 1050 ml Output Total 800 ml 500 ml Balance 600 ml 550 ml Intake Oral 450 ml IV Total 730 ml 600 ml Other 670 ml Output Urine Total 800 ml 500 ml General Appearance: WD/WN HEENT: normocephalic, atraumatic Respiratory/Chest: chest wall non-tender, lungs clear, chest wall tender Cardiovascular: normal peripheral pulses Abdomen: normal bowel sounds, non distended Skin: no rash Laboratory Tests 09/02/17 18:30: Stool Occult Blood Negative 09/03/17 06:25: White Blood Count 15.1#H, Red Blood Count 4.31L, Hemoglobin 12.1L, Hematocrit 37.1L, Mean Corpuscular Volume 86, Mean Corpuscular Hemoglobin 28.1, Mean Corpuscular Hemoglobin Concent 32.6, Red Cell Distribution Width 13.1, Platelet Count 344, Mean Platelet Volume 6.4L, Neutrophils (%) (Auto) 81.6H, Lymphocytes (%) (Auto) 13.4L, Monocytes (%) (Auto) 4.5, Eosinophils (%) (Auto) 0.2, Basophils (%) (Auto) 0.4, Sodium Level 134L, Potassium Level 4.4, Chloride Level 99, Carbon Dioxide Level 27, Anion Gap 8, Blood Urea Nitrogen 15, Creatinine 0.6, Estimat Glomerular Filtration Rate > 60, Glucose Level 154H, Calcium Level 8.4L Current Medications Medications (Trade) Dose Ordered Sig/Veronica Route PRN Reason Start Time Stop Time Status Last Admin Dose Admin Acetaminophen (Tylenol) 650 mg Q4H PRN ORAL FEVER 08/25/17 08:15 09/24/17 08:14 08/27/17 13:06 Chlorhexidine Gluconate (Nishi-Hex 2%) 1 applic DAILY@1999 TOPIC 08/29/17 20:00 09/28/17 19:59 09/02/17 20:18 Dextrose (Dextrose 50%) 25 ml STAT PRN IV Hypoglycemia 08/25/17 08:15 09/24/17 08:14 Dextrose (Dextrose 50%) 50 ml STAT PRN IV Hypoglycemia 08/25/17 08:30 09/24/17 08:29 Docusate Sodium (Colace) 100 mg THREE TIMES A DAY ORAL 08/30/17 13:00 09/29/17 12:59 09/03/17 12:15 Duloxetine HCl (Cymbalta) 30 mg DAILY ORAL 08/25/17 09:00 09/24/17 08:59 09/03/17 08:39 Gabapentin (Neurontin) 300 mg THREE TIMES A DAY ORAL 08/25/17 09:00 09/24/17 08:59 09/03/17 12:15 Heparin Sodium (Porcine) (Heparin 5000 units/ml) 5,000 units EVERY 12 HOURS SUBQ 08/25/17 09:00 09/24/17 08:59 09/03/17 08:46 Hydromorphone HCl (Dilaudid) 1 mg Q3H PRN IVP severe pain 08/31/17 14:00 09/04/17 08:44 09/03/17 12:45 Ondansetron HCl (Zofran) 4 mg Q6H PRN IVP Nausea & Vomiting 08/25/17 08:15 09/24/17 08:14 09/03/17 08:39 Oxacillin Sodium 2 gm/Sodium Chloride 110 ml @ 220 mls/hr Q4HR IVPB 08/25/17 21:00 09/07/17 20:59 09/03/17 12:16 Polyethylene Glycol (Miralax) 17 gm DAILYPRN PRN ORAL Constipation 08/25/17 08:15 09/24/17 08:14 09/02/17 14:38 Sodium Chloride 1,000 ml @ 50 mls/hr Q20H IV 08/26/17 13:45 09/25/17 13:44 09/03/17 01:15 Sally Cox MD Sep 03, 2017 13:53
--- NOTE | 2017-09-03 13:59 | General Surgery Progress Note ---
General Surgery-Progress Note Subjective Additional Comments no acute events. doing well. still asking for pain meds Objective Last 24 Hour Vital Signs Date Time Temp Pulse Resp B/P (MAP) Pulse Ox O2 Delivery O2 Flow Rate FiO2 09/03/17 13:15 97.8 09/03/17 12:45 97.8 09/03/17 12:02 121/79 (93) 09/03/17 11:53 97.8 59 18 117/56 (76) 94 97.8 09/03/17 09:00 Room Air 09/03/17 08:43 97.1 09/03/17 08:00 97.1 87 17 151/91 (111) 94 97.1 09/03/17 04:00 97.1 108 19 123/82 (96) 93 97.1 09/03/17 00:00 97.8 104 19 109/73 (85) 92 97.8 09/02/17 21:00 Room Air 09/02/17 20:00 98.3 103 21 120/82 (95) 93 98.3 09/02/17 19:58 102 18 Room Air 21 09/02/17 17:17 98.3 09/02/17 16:00 98.3 79 18 130/82 (98) 96 98.3 09/02/17 14:15 97.9 I&O Intake and Output 09/02/17 09/03/17 19:00 07:00 Intake Total 1400 ml 1050 ml Output Total 800 ml 500 ml Balance 600 ml 550 ml Intake Oral 450 ml IV Total 730 ml 600 ml Other 670 ml Output Urine Total 800 ml 500 ml Wound: clean, dry Drains: none Cardiovascular: RSR Respiratory: clear Abdomen: soft, flat, non-tender, present bowel sounds Extremities: no cyanosis Laboratory Tests Test 09/02/17 18:30 09/03/17 06:25 Stool Occult Blood Negative (NEGATIVE) White Blood Count 15.1 K/UL (4.8-10.8) #H Red Blood Count 4.31 M/UL (4.70-6.10) L Hemoglobin 12.1 G/DL (14.2-18.0) L Hematocrit 37.1 % (42.0-52.0) L Mean Corpuscular Volume 86 FL (80-99) Mean Corpuscular Hemoglobin 28.1 PG (27.0-31.0) Mean Corpuscular Hemoglobin Concent 32.6 G/DL (32.0-36.0) Red Cell Distribution Width 13.1 % (11.6-14.8) Platelet Count 344 K/UL (150-450) Mean Platelet Volume 6.4 FL (6.5-10.1) L Neutrophils (%) (Auto) 81.6 % (45.0-75.0) H Lymphocytes (%) (Auto) 13.4 % (20.0-45.0) L Monocytes (%) (Auto) 4.5 % (1.0-10.0) Eosinophils (%) (Auto) 0.2 % (0.0-3.0) Basophils (%) (Auto) 0.4 % (0.0-2.0) Sodium Level 134 MMOL/L (136-145) L Potassium Level 4.4 MMOL/L (3.5-5.1) Chloride Level 99 MMOL/L (98-107) Carbon Dioxide Level 27 MMOL/L (21-32) Anion Gap 8 mmol/L (5-15) Blood Urea Nitrogen 15 mg/dL (7-18) Creatinine 0.6 MG/DL (0.55-1.30) Estimat Glomerular Filtration Rate > 60 mL/min (>60) Glucose Level 154 MG/DL (74-106) H Calcium Level 8.4 MG/DL (8.5-10.1) L Plan Problems: (1) Empyema Assessment & Plan: s/p VATS. since chest tube removed. wounds healing. no signs of surgical site infection. does have pain on left ribs and likely healing from surgery patient signed out AMA last hospitalization prior to completion of therapy. Repeat chest CT now with larger right sided effusion possible empyema. MRI spine reviewed. spine abscess recommend tap of right side for cultures / eval -patient declined and refused thoracentesis needs spine surgery eval. possibly may need transfer to high level of care IV Abx will follow with Brian Milligan Sep 03, 2017 13:58
--- NOTE | 2017-09-03 14:15 | Progress Note ---
DATE: 09/03/2017 NOTE: POOR AUDIO SUBJECTIVE: The patient is a 56-year-old male patient, suffering from empyema. He has disorganized thought process, mood lability, worsened by the stress of his medical illness. . That is why his attending has requested daily psychiatric consultation. MENTAL STATUS EXAMINATION: The patient is a 56-year-old male. Appearance is disheveled. Attitude is irritable and agitated. Affect is guarded and restricted. Intellect poor. Thought process, . Denies suicidal or homicidal thoughts. DIAGNOSIS: Major depressive disorder, moderate, recurrent without psychotic features. PLAN: Continue treatment with Cymbalta 30 mg a day, Neurontin 300 mg three times a day. Provided 18 to 20 minutes of cognitive behavioral therapy negative thought process. Chart was reviewed and discussed with staff. Gudelia Villa M.D. DR: IRLANDA JOB#: [id number] CC:
--- NOTE | 2017-09-03 19:23 | Infectious Diseases Prog Note ---
Assessment/Plan Assessment/Plan ASSESSMENT: The patient is a 56-year-old male with multiple medical problems, who has recent empyema/bacteremia due to methicillin-sensitive Staphylococcus aureus ( Signed off AMA on 08/18/17 and had incomplete treatment; only 10 day of 42) -CT chest 08/25: Increased size of loculated right pleural effusion. Small air in the pleural space. Smaller residual left loculated pleural fluid with small air. Small to moderate fluid collection now in the left fissure. Bilateral lower lobe atelectasis/consolidations and air space disease,similar. -s/p VATS, partial pleurectomy, decortication 08/14 -OR findings : Bronchoscopy: A minimal amount of mucopurulent secretion was lavaged and suctioned clear. No endobronchial lesions. -VATS: There were noted to be numerous adhesions tethering along to the surrounding chest wall. The disease appears to be localized in the left lower lobe as the left upper lobe was virtually spared. - OR cx MSSA -CT chest 08/10: Left pleural effusion. Scalloped appearance suggests loculation. Presence of gas bubbles suggest infection by gas-forming organism. Gas bubbles appear trapped within the fluid rather than floating nondependently , indicating the fluid may be highly viscous. - -08/07 Bcx 4/4 MSSA; 08/08 4/4+; 08/10 2/4 +; 08/11 2/4+; 08/13 Neg x4; Bcx 08/27 Negx4; 08/30 NTD -08/28 ESR 126 <86 (08/10), CRP 12 < 27 (08/09) Mild leukocytosis, recurrent Low grade fever, intermittent; resolved Probable endocarditis (NURA was not done). Thoracic Discitis/Osteomyelitis and epidural abscess T7-T10- causing spinal cord compression; Possible Cervical spodylodiscitis w/ cord compression > Quadriparesis -MRI Cervical spine: Disc narrowing at C5-6. Marrow edema of the adjacent C5 and C6 vertebral bodies is noted. This is most likely due to Modic type I degenerative change and reactive marrow edema, particularly given the absence of edema within the disc. However, the possibility of spondylodiscitis as etiology of this finding, particularly in view of recent diagnosis of thoracic epidural abscess and in view of the slight degree of surrounding soft tissue edema, should also be considered. Severe spinal stenosis with cord compression at multiple levels extending from C3-4 through C5-6. Minimum AP dimension of the spinal canal 5 mm. Due to image degradation, it is uncertain as to whether there is significant cord edema/myelomalacia present. Multilevel severe neural foraminal stenosis as detailed level by level basis above -MRI Thoracic Spine: Suspicion of cord compression T7-T10 secondary to a posterior epidural abscess versus mass. Abscess favored given suspicion of spondylodiscitis at T9-10 as well as bilateral pleural effusions and pneumonia ( recent diagnosed on CT chest). Significantly limited study due to motion. -MRI Lumbar spine: Evidence of T9-10 discitis/osteomyelitis. Suspect related to previously described adjacent bilateral pleural empyemas. Evidence of epidural abscess measuring at least 8 x 11 mm in diameter, and extending at least 5 cm craniocaudad, at and above the T9 level. This results in significant spinal stenosis. Note that it is incompletely included in the imaging volume, and the cephalad extent above mid T7 is unclear. Recommend thoracic MRI for further evaluation. As mentioned above, evidence of bilateral empyemas, with bilateral loculated pleural fluid collections and extensive enhancement and edema of the adjacent soft tissue. Extensive multilevel degenerative changes elsewhere, as detailed on a level by level basis above Polysubstance abuse- refers last IVDA was ~7 yrs ago -UDS (prior admission) +THC, cocaine and amphetamines HIV - non progressor- per patient, never on Tx and CD4 >500 and UD VL -07/2017 CD4 510 (39.2%), VL ND Hep C s/p tx (20 years ago) with sustained virologic response COPD/asthma tobacco abuse (stopped smoking 3d [employer]) PLAN: -. The patient is on oxacillin day # -56 (the patient received 11 days of treatment prior to discharge). -monitor LFTs -08/25 SP IV Vanco and Cefepme #2 -08/18 SP IV Oxacillin #9 -08/10 SP Ceftriaxone d# 5 and IV Vancomycin #3 -08/06 SP Cefepime x1, Levaquin x1 -. Monitor CBC/CMP, temperatures -. Monitor cultures (Bcx) -NEEDS EMERGENT transfer to tertiary hospital for neurosurgical evaluation for epidural abscess and thoracic discitis and OM as it causing spinal cord compression -awaiting transfer: having too much difficulty finding an accepting facility -Needs also further chest drainage; currently refusing -will also need NURA to eval for endocarditis/valvular abscess ( pt refused ) -f/u repeat Bcx x2 -CBC, CMP, ESR, CRP am Discussed with RN. Subjective Allergies: Coded Allergies: No Known Allergies (Unverified , 08/06/17) Subjective Bcx NTD awaiting tranfer to higher level of care leukocytosis Objective Vital Signs Last 24 Hour Vital Signs Date Time Temp Pulse Resp B/P (MAP) Pulse Ox O2 Delivery O2 Flow Rate FiO2 09/03/17 18:06 97.8 09/03/17 17:36 97.8 09/03/17 16:05 100 20 Room Air 21 09/03/17 16:00 98.1 87 18 126/81 (96) 98 98.1 09/03/17 12:45 97.8 09/03/17 12:02 121/79 (93) 09/03/17 11:53 97.8 59 18 117/56 (76) 94 97.8 09/03/17 09:00 Room Air 09/03/17 08:43 97.1 09/03/17 08:00 97.1 87 17 151/91 (111) 94 97.1 09/03/17 04:00 97.1 108 19 123/82 (96) 93 97.1 09/03/17 00:00 97.8 104 19 109/73 (85) 92 97.8 09/02/17 21:00 Room Air 09/02/17 20:00 98.3 103 21 120/82 (95) 93 98.3 09/02/17 19:58 102 18 Room Air 21 Height (Feet): 5 Height (Inches): 7.00 Weight (Pounds): 159 Objective HEENT: No pale conjunctivae. No icterus. NECK: No lymphadenopathy. CHEST: Clear. Incision site is healing. HEART: S1 and S2. ABDOMEN: Soft and nontender. BACK: The patient has tenderness in the lower thoracic and lumbar area. EXTREMITIES: No cyanosis. NEUROLOGIC: Awake and alert. +Babinski, brisk reflexes, LE>UE weakness. no sensory deficits Laboratory Tests Test 09/03/17 06:25 White Blood Count 15.1 K/UL (4.8-10.8) #H Red Blood Count 4.31 M/UL (4.70-6.10) L Hemoglobin 12.1 G/DL (14.2-18.0) L Hematocrit 37.1 % (42.0-52.0) L Mean Corpuscular Volume 86 FL (80-99) Mean Corpuscular Hemoglobin 28.1 PG (27.0-31.0) Mean Corpuscular Hemoglobin Concent 32.6 G/DL (32.0-36.0) Red Cell Distribution Width 13.1 % (11.6-14.8) Platelet Count 344 K/UL (150-450) Mean Platelet Volume 6.4 FL (6.5-10.1) L Neutrophils (%) (Auto) 81.6 % (45.0-75.0) H Lymphocytes (%) (Auto) 13.4 % (20.0-45.0) L Monocytes (%) (Auto) 4.5 % (1.0-10.0) Eosinophils (%) (Auto) 0.2 % (0.0-3.0) Basophils (%) (Auto) 0.4 % (0.0-2.0) Sodium Level 134 MMOL/L (136-145) L Potassium Level 4.4 MMOL/L (3.5-5.1) Chloride Level 99 MMOL/L (98-107) Carbon Dioxide Level 27 MMOL/L (21-32) Anion Gap 8 mmol/L (5-15) Blood Urea Nitrogen 15 mg/dL (7-18) Creatinine 0.6 MG/DL (0.55-1.30) Estimat Glomerular Filtration Rate > 60 mL/min (>60) Glucose Level 154 MG/DL (74-106) H Calcium Level 8.4 MG/DL (8.5-10.1) L Current Medications Medications (Trade) Dose Ordered Sig/Veronica Route PRN Reason Start Time Stop Time Status Last Admin Dose Admin Acetaminophen (Tylenol) 650 mg Q4H PRN ORAL FEVER 08/25/17 08:15 09/24/17 08:14 08/27/17 13:06 Chlorhexidine Gluconate (Nishi-Hex 2%) 1 applic DAILY@1999 TOPIC 08/29/17 20:00 09/28/17 19:59 09/02/17 20:18 Dextrose (Dextrose 50%) 25 ml STAT PRN IV Hypoglycemia 08/25/17 08:15 09/24/17 08:14 Dextrose (Dextrose 50%) 50 ml STAT PRN IV Hypoglycemia 08/25/17 08:30 09/24/17 08:29 Docusate Sodium (Colace) 100 mg THREE TIMES A DAY ORAL 08/30/17 13:00 09/29/17 12:59 09/03/17 12:15 Duloxetine HCl (Cymbalta) 30 mg DAILY ORAL 08/25/17 09:00 09/24/17 08:59 09/03/17 08:39 Gabapentin (Neurontin) 300 mg THREE TIMES A DAY ORAL 08/25/17 09:00 09/24/17 08:59 09/03/17 17:34 Heparin Sodium (Porcine) (Heparin 5000 units/ml) 5,000 units EVERY 12 HOURS SUBQ 08/25/17 09:00 09/24/17 08:59 09/03/17 08:46 Hydromorphone HCl (Dilaudid) 1 mg Q3H PRN IVP severe pain 08/31/17 14:00 09/04/17 08:44 09/03/17 17:36 Ondansetron HCl (Zofran) 4 mg Q6H PRN IVP Nausea & Vomiting 08/25/17 08:15 09/24/17 08:14 09/03/17 17:34 Oxacillin Sodium 2 gm/Sodium Chloride 110 ml @ 220 mls/hr Q4HR IVPB 08/25/17 21:00 09/07/17 20:59 09/03/17 17:39 Polyethylene Glycol (Miralax) 17 gm DAILYPRN PRN ORAL Constipation 08/25/17 08:15 09/24/17 08:14 09/02/17 14:38 Sodium Chloride 1,000 ml @ 50 mls/hr Q20H IV 08/26/17 13:45 09/25/17 13:44 09/03/17 01:15 Steph Crowder M.D. Sep 03, 2017 19:23
[2017-09-03] MEDS: Dyna-Hex 2% Top Sol 2oz TOPIC SCH (20:33)
--- NOTE | 2017-09-03 20:42 | Cardiology Report ---
APPROVED REPORT EXAM: Two-dimensional and M-mode echocardiogram with Doppler and color Doppler. INDICATION Vegitation Technically limited and difficult study due to poor acoustical windows. M-mode measurements not obtainable due to cardiac structure. Normal left ventricular chamber size, systolic function and wall motion. Left ventricular ejection fraction estimated to be 55-60 % to extend visualized. No evidence of left ventricular hypertrophy. No evidence of pericardial or pleural effusion. All other cardiac chamber sizes are within normal limits. Focal aortic valve sclerosis with adequate cusp excursion. Thickened mitral valve leaflets with normal excursion. Mild mitral annulus and aortic root calcification. Pulmonic valve not well visualized. Normal tricuspid valve structure. IVC is normal in size and collapsible with respiration. Difficult to visualize vegitation, consider NURA if clinically indicated. A color flow and spectral Doppler study was performed and revealed: No aortic regurgitation. No mitral regurgitation. Mitral diastolic velocities suggest reduced left ventricular relaxation c/w diastolic dysfunction grade 1. No tricuspid regurgitation.
[2017-09-04] VITALS: BP 109/68
[2017-09-04] MEDS: Oxacillin 2 GM in NS 110 ML IVPB SCH ×6 (00:26→21:26)
[2017-09-04] MEDS: HYDROmorphone 1mg/ml Carpuject IVP PRN ×7 (02:19→22:57)
[2017-09-04 04:00] VITALS: BP 122/78
[2017-09-04 07:13] LABS: BASOPHILS % (AUTO) 0.4 % (0.0-2.0); EOSINOPHILS % (AUTO) 0.8 % (0.0-3.0); HEMATOCRIT 27.7 % (42.0-52.0); HEMOGLOBIN 9.1 G/DL (14.2-18.0); LYMPHOCYTES % (AUTO) 21.6 % (20.0-45.0); MEAN CORPUSCULAR VOLUME 85 FL (80-99); MONOCYTES % (AUTO) 5.3 % (1.0-10.0); NEUTROPHILS % (AUTO) 71.9 % (45.0-75.0); PLATELET COUNT 280 K/UL (150-450); RED BLOOD COUNT 3.25 M/UL (4.70-6.10); RED CELL DISTRIBUTION WIDTH 13.5 % (11.6-14.8); WHITE BLOOD COUNT 9.9 K/UL (4.8-10.8)
--- NOTE | 2017-09-04 07:42 | General Progress Note ---
Assessment/Plan Assessment/Plan (1) Left sided wall chest pain (2) Lung effusion possible empyema (3) S/p VATS (4) Intercostal Neuropathy (5) Lumbar Spondylosis (6) T9-10 discitis/osteomyelitis with epidural abscess (7) Cervical spinal stenosis We will continue Dilaudid, Eden and Neurontin. Recommend Neurosurgical consultation as per medical officer. D/w Dr. Stevens and he concurred. Subjective Date patient seen: Sep 04, 2017 Time patient seen: 07:00 - am Allergies: Coded Allergies: No Known Allergies (Unverified , 08/06/17) Subjective REVIEW OF SYSTEMS: Denies rash, fever, chills, sweating, dizziness, drowsiness, blurred vision, sore throat, or change in weight. No nausea, vomiting, diarrhea, or blood in the stool or urine. He is complaining of left chest wall pain and back pain. SUBJECTIVE: Patient continues to lay in bed c/o back pain the pain has been tolerated on the Dilaudid using the Eden for breakthrough pain. He has no new complaints at this time. Objective Last 24 Hour Vital Signs Date Time Temp Pulse Resp B/P (MAP) Pulse Ox O2 Delivery O2 Flow Rate FiO2 09/04/17 04:00 98.0 92 20 122/78 (93) 94 98.0 09/04/17 00:00 98.2 89 21 109/68 (82) 92 98.2 09/03/17 21:00 Room Air 09/03/17 20:00 98.5 102 20 121/75 (90) 92 98.5 09/03/17 18:06 97.8 09/03/17 17:36 97.8 09/03/17 16:05 100 20 Room Air 21 09/03/17 16:00 98.1 87 18 126/81 (96) 98 98.1 09/03/17 12:45 97.8 09/03/17 12:02 121/79 (93) 09/03/17 11:53 97.8 59 18 117/56 (76) 94 97.8 09/03/17 09:00 Room Air 09/03/17 08:43 97.1 09/03/17 08:00 97.1 87 17 151/91 (111) 94 97.1 Intake and Output 09/03/17 09/04/17 19:00 07:00 Intake Total 1250 ml 930 ml Output Total 650 ml 800 ml Balance 600 ml 130 ml IV Total 650 ml 530 ml Other 600 ml 400 ml Output Urine Total 650 ml 800 ml # Bowel Movements 3 Laboratory Tests 09/04/17 05:52: White Blood Count 9.9, Red Blood Count 3.25L, Hemoglobin 9.1L, Hematocrit 27.7L , Mean Corpuscular Volume 85, Mean Corpuscular Hemoglobin 28.1, Mean Corpuscular Hemoglobin Concent 32.9, Red Cell Distribution Width 13.5, Platelet Count 280, Mean Platelet Volume 5.8L, Neutrophils (%) (Auto) 71.9, Lymphocytes ( %) (Auto) 21.6, Monocytes (%) (Auto) 5.3, Eosinophils (%) (Auto) 0.8, Basophils (%) (Auto) 0.4, Erythrocyte Sedimentation Rate [Pending], Sodium Level [Pending] , Potassium Level [Pending], Chloride Level [Pending], Carbon Dioxide Level [ Pending], Blood Urea Nitrogen [Pending], Creatinine [Pending], Estimat Glomerular Filtration Rate [Pending], Glucose Level [Pending], Calcium Level [ Pending], Total Bilirubin [Pending], Aspartate Amino Transf (AST/SGOT) [Pending] , Alanine Aminotransferase (ALT/SGPT) [Pending], Alkaline Phosphatase [Pending] , C-Reactive Protein, Quantitative [Pending], Total Protein [Pending], Albumin [ Pending], Globulin [Pending] Height (Feet): 5 Height (Inches): 7.00 Weight (Pounds): 159 Objective GENERAL: Alert, awake, and oriented. LUNGS: Decreased breath sounds bilaterally. HEART: S1 S2 Regular. ABDOMEN: Benign. EXTREMITIES: No cyanosis. No clubbing. No edema. NEURO: No changes. Mark Rausch Sep 04, 2017 07:42
[2017-09-04 07:55] LABS: ALANINE AMINOTRANSFERASE 17 U/L (12-78); ALBUMIN 1.7 G/DL (3.4-5.0); ALBUMIN/GLOBULIN RATIO 0.4 (1.0-2.7); ALKALINE PHOSPHATASE 71 U/L (46-116); ANION GAP 7 mmol/L (5-15); ASPARTATE AMINO TRANSFERASE 17 U/L (15-37); BILIRUBIN,TOTAL 0.2 MG/DL (0.2-1.0); BLOOD UREA NITROGEN 12 mg/dL (7-18); CARBON DIOXIDE 27 MMOL/L (21-32); CHLORIDE 102 MMOL/L (98-107); CREATININE 0.6 MG/DL (0.55-1.30); POTASSIUM 3.6 MMOL/L (3.5-5.1); SODIUM 136 MMOL/L (136-145)
[2017-09-04 08:00] VITALS: BP 134/78
[2017-09-04] MEDS ORDERED: HYDROcodone/Acetamin 10/325 tab ORAL PRN (08:00)
[2017-09-04] MEDS: Docusate 100mg cap ORAL SCH ×3 (08:54→16:59)
[2017-09-04] MEDS: DULoxetine 30mg cap ORAL SCH (08:54)
[2017-09-04] MEDS: Heparin 5000 units/ml inj SUBQ SCH ×2 (09:01→21:25)
--- NOTE | 2017-09-04 11:45 | Progress Note ---
DATE: 09/04/2017 SUBJECTIVE: The patient is a 57-year-old male patient suffering from empyema. This patient has altered mental status, confusion, depression, anxiety, worsened by the stress of his medical illness. That is why, his attending has requested daily psychiatric consultation. MENTAL STATUS EXAMINATION: This is a 57-year-old male patient. Appearance is disheveled. Attitude is irritable and agitated. Affect is guarded and restricted. Intellect poor. Mood is depressed and anxious. Motor activity, psychomotor agitation. Attention span is poor. Orientation x2. Speech is pressured. Thought process, disorganized. Thought content, auditory hallucinations and paranoid delusions. Insight and judgment is poor. DIAGNOSIS: Major depressive disorder, moderate, recurrent without psychotic features. PLAN: Continue treatment with Cymbalta 30 mg p.o. daily, Neurontin 300 mg three times a day. Also provided 18 to 20 minutes of cognitive behavioral therapy. We will go over and evaluate this patient negative thoughts and help the patient more positive thoughts to reduce depression and anxiety. Chart reviewed. Discussed with staff. Seen and assessed at bedside. Gudelia Villa M.D. DR: IRLANDA JOB#: [id number] CC:
[2017-09-04 12:00] VITALS: BP 130/79
--- NOTE | 2017-09-04 12:05 | Pulmonology Progress Note ---
Assessment/Plan Problems: (1) Epidural abscess (2) Sepsis (3) Osteomyelitis (4) COPD (chronic obstructive pulmonary disease) (5) Hypoalbuminemia (6) Hepatitis C (7) HIV (human immunodeficiency virus infection) (8) Pleural effusion Assessment/Plan pain management no new complains spine surgery evaluation can not be done at this facility iv abx check electrolytes symptomatic treatment transfer to higher level of care Subjective ROS Limited/Unobtainable: No Constitutional: Reports: no symptoms HEENT: Repors: no symptoms Allergies: Coded Allergies: No Known Allergies (Unverified , 08/06/17) Objective Last 24 Hour Vital Signs Date Time Temp Pulse Resp B/P (MAP) Pulse Ox O2 Delivery O2 Flow Rate FiO2 09/04/17 10:17 98.0 09/04/17 10:09 98.0 09/04/17 10:09 98.0 09/04/17 09:10 98.0 09/04/17 09:00 Room Air 09/04/17 08:00 97.2 89 18 134/78 (96) 93 97.2 09/04/17 04:00 98.0 92 20 122/78 (93) 94 98.0 09/04/17 00:00 98.2 89 21 109/68 (82) 92 98.2 09/03/17 21:00 Room Air 09/03/17 20:00 98.5 102 20 121/75 (90) 92 98.5 09/03/17 18:06 97.8 09/03/17 17:36 97.8 09/03/17 16:05 100 20 Room Air 21 09/03/17 16:00 98.1 87 18 126/81 (96) 98 98.1 09/03/17 12:45 97.8 Intake and Output 09/03/17 09/04/17 19:00 07:00 Intake Total 1250 ml 930 ml Output Total 650 ml 800 ml Balance 600 ml 130 ml IV Total 650 ml 530 ml Other 600 ml 400 ml Output Urine Total 650 ml 800 ml # Bowel Movements 3 General Appearance: WD/WN, no acute distress HEENT: normocephalic, atraumatic Respiratory/Chest: chest wall non-tender, lungs clear Cardiovascular: normal peripheral pulses, normal rate Genitourinary: normal external genitalia Extremities: no clubbing 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, abnormal gait Lymphatic: no neck adenopathy Laboratory Tests 09/04/17 05:52: White Blood Count 9.9, Red Blood Count 3.25L, Hemoglobin 9.1L, Hematocrit 27.7L , Mean Corpuscular Volume 85, Mean Corpuscular Hemoglobin 28.1, Mean Corpuscular Hemoglobin Concent 32.9, Red Cell Distribution Width 13.5, Platelet Count 280, Mean Platelet Volume 5.8L, Neutrophils (%) (Auto) 71.9, Lymphocytes ( %) (Auto) 21.6, Monocytes (%) (Auto) 5.3, Eosinophils (%) (Auto) 0.8, Basophils (%) (Auto) 0.4, Erythrocyte Sedimentation Rate 115H, Sodium Level 136, Potassium Level 3.6, Chloride Level 102, Carbon Dioxide Level 27, Anion Gap 7, Blood Urea Nitrogen 12, Creatinine 0.6, Estimat Glomerular Filtration Rate > 60 , Glucose Level 91, Calcium Level 8.0L, Total Bilirubin 0.2, Aspartate Amino Transf (AST/SGOT) 17, Alanine Aminotransferase (ALT/SGPT) 17, Alkaline Phosphatase 71, C-Reactive Protein, Quantitative 5.0H, Total Protein 6.3L, Albumin 1.7L, Globulin 4.6, Albumin/Globulin Ratio 0.4L Current Medications Medications (Trade) Dose Ordered Sig/Veronica Route PRN Reason Start Time Stop Time Status Last Admin Dose Admin Acetaminophen (Tylenol) 650 mg Q4H PRN ORAL FEVER 08/25/17 08:15 09/24/17 08:14 08/27/17 13:06 Acetaminophen/ Hydrocodone Bitart (Napoleon 10/325) 1 tab Q4H PRN ORAL Moderate Pain (Pain Scale 4-6) 09/04/17 08:00 09/11/17 07:59 09/04/17 09:10 Chlorhexidine Gluconate (Nishi-Hex 2%) 1 applic DAILY@2000 TOPIC 08/29/17 20:00 09/28/17 19:59 09/03/17 20:33 Dextrose (Dextrose 50%) 25 ml STAT PRN IV Hypoglycemia 08/25/17 08:15 09/24/17 08:14 Dextrose (Dextrose 50%) 50 ml STAT PRN IV Hypoglycemia 08/25/17 08:30 09/24/17 08:29 Docusate Sodium (Colace) 100 mg THREE TIMES A DAY ORAL 08/30/17 13:00 09/29/17 12:59 09/04/17 08:54 Duloxetine HCl (Cymbalta) 30 mg DAILY ORAL 08/25/17 09:00 09/24/17 08:59 09/04/17 08:54 Gabapentin (Neurontin) 300 mg THREE TIMES A DAY ORAL 08/25/17 09:00 09/24/17 08:59 09/04/17 08:54 Heparin Sodium (Porcine) (Heparin 5000 units/ml) 5,000 units EVERY 12 HOURS SUBQ 08/25/17 09:00 09/24/17 08:59 09/04/17 09:01 Hydromorphone HCl (Dilaudid) 1 mg Q3H PRN IVP Severe Pain (Pain Scale 7-10) 09/04/17 10:15 09/11/17 10:14 09/04/17 10:17 Ondansetron HCl (Zofran) 4 mg Q6H PRN IVP Nausea & Vomiting 08/25/17 08:15 09/24/17 08:14 09/04/17 05:23 Oxacillin Sodium 2 gm/Sodium Chloride 110 ml @ 220 mls/hr Q4HR IVPB 08/25/17 21:00 09/07/17 20:59 09/04/17 08:54 Polyethylene Glycol (Miralax) 17 gm DAILYPRN PRN ORAL Constipation 08/25/17 08:15 09/24/17 08:14 09/02/17 14:38 Sodium Chloride 1,000 ml @ 50 mls/hr Q20H IV 08/26/17 13:45 09/25/17 13:44 09/04/17 00:26 Sally Cox MD Sep 04, 2017 12:05
--- NOTE | 2017-09-04 13:16 | General Surgery Progress Note ---
General Surgery-Progress Note Subjective Additional Comments no acute events. stable Objective Last 24 Hour Vital Signs Date Time Temp Pulse Resp B/P (MAP) Pulse Ox O2 Delivery O2 Flow Rate FiO2 09/04/17 12:00 97.0 94 19 130/79 (96) 93 97.0 09/04/17 10:17 98.0 09/04/17 10:09 98.0 09/04/17 10:09 98.0 09/04/17 09:10 98.0 09/04/17 09:00 Room Air 09/04/17 08:00 97.2 89 18 134/78 (96) 93 97.2 09/04/17 04:00 98.0 92 20 122/78 (93) 94 98.0 09/04/17 00:00 98.2 89 21 109/68 (82) 92 98.2 09/03/17 21:00 Room Air 09/03/17 20:00 98.5 102 20 121/75 (90) 92 98.5 09/03/17 18:06 97.8 09/03/17 17:36 97.8 09/03/17 16:05 100 20 Room Air 21 09/03/17 16:00 98.1 87 18 126/81 (96) 98 98.1 I&O Intake and Output 09/03/17 09/04/17 19:00 07:00 Intake Total 1250 ml 930 ml Output Total 650 ml 800 ml Balance 600 ml 130 ml IV Total 650 ml 530 ml Other 600 ml 400 ml Output Urine Total 650 ml 800 ml # Bowel Movements 3 Wound: clean, dry Drains: none Cardiovascular: RSR Respiratory: clear Abdomen: soft, non-tender, present bowel sounds Extremities: no cyanosis Laboratory Tests Test 09/04/17 05:52 White Blood Count 9.9 K/UL (4.8-10.8) Red Blood Count 3.25 M/UL (4.70-6.10) L Hemoglobin 9.1 G/DL (14.2-18.0) L Hematocrit 27.7 % (42.0-52.0) L Mean Corpuscular Volume 85 FL (80-99) Mean Corpuscular Hemoglobin 28.1 PG (27.0-31.0) Mean Corpuscular Hemoglobin Concent 32.9 G/DL (32.0-36.0) Red Cell Distribution Width 13.5 % (11.6-14.8) Platelet Count 280 K/UL (150-450) Mean Platelet Volume 5.8 FL (6.5-10.1) L Neutrophils (%) (Auto) 71.9 % (45.0-75.0) Lymphocytes (%) (Auto) 21.6 % (20.0-45.0) Monocytes (%) (Auto) 5.3 % (1.0-10.0) Eosinophils (%) (Auto) 0.8 % (0.0-3.0) Basophils (%) (Auto) 0.4 % (0.0-2.0) Erythrocyte Sedimentation Rate 115 MM/HR (0-20) H Sodium Level 136 MMOL/L (136-145) Potassium Level 3.6 MMOL/L (3.5-5.1) Chloride Level 102 MMOL/L (98-107) Carbon Dioxide Level 27 MMOL/L (21-32) Anion Gap 7 mmol/L (5-15) Blood Urea Nitrogen 12 mg/dL (7-18) Creatinine 0.6 MG/DL (0.55-1.30) Estimat Glomerular Filtration Rate > 60 mL/min (>60) Glucose Level 91 MG/DL (74-106) Calcium Level 8.0 MG/DL (8.5-10.1) L Total Bilirubin 0.2 MG/DL (0.2-1.0) Aspartate Amino Transf (AST/SGOT) 17 U/L (15-37) Alanine Aminotransferase (ALT/SGPT) 17 U/L (12-78) Alkaline Phosphatase 71 U/L (46-116) C-Reactive Protein, Quantitative 5.0 mg/dL (0.00-0.90) H Total Protein 6.3 G/DL (6.4-8.2) L Albumin 1.7 G/DL (3.4-5.0) L Globulin 4.6 g/dL Albumin/Globulin Ratio 0.4 (1.0-2.7) L Plan Problems: (1) Empyema Assessment & Plan: s/p VATS. since chest tube removed. wounds healing. no signs of surgical site infection. does have pain on left ribs and likely healing from surgery patient signed out AMA last hospitalization prior to completion of therapy. Repeat chest CT now with larger right sided effusion possible empyema. MRI spine reviewed. spine abscess recommend tap of right side for cultures / eval -patient declined and refused thoracentesis needs spine surgery eval. possibly may need transfer to high level of care IV Abx will follow with Brian Milligan Sep 04, 2017 13:15
--- NOTE | 2017-09-04 15:34 | General Progress Note ---
Assessment/Plan Problem List: (1) Chronic pain ICD Codes: G89.29 - Other chronic pain SNOMED: 21311076 (2) Hypokalemia ICD Codes: E87.6 - Hypokalemia SNOMED: 13357765 (3) HIV (human immunodeficiency virus infection) ICD Codes: B20 - Human immunodeficiency virus [HIV] disease SNOMED: 01950519 (4) Sepsis ICD Codes: A41.9 - Sepsis, unspecified organism SNOMED: 97817959 Qualifiers: Qualified Codes: A41.9 - Sepsis, unspecified organism (5) Empyema ICD Codes: J86.9 - Pyothorax without fistula SNOMED: 060060765 (6) Drug abuse and dependence ICD Codes: F19.20 - Other psychoactive substance dependence, uncomplicated SNOMED: 8077891 (7) Epidural abscess ICD Codes: G06.2 - Extradural and subdural abscess, unspecified SNOMED: 22683292 Status: unchanged Assessment/Plan ot pt diet abx neph f/u cbc bmp am higher level care prn Subjective Constitutional: Reports: weakness Allergies: Coded Allergies: No Known Allergies (Unverified , 08/06/17) All Systems: reviewed and negative except above Subjective sleepy calm Objective Last 24 Hour Vital Signs Date Time Temp Pulse Resp B/P (MAP) Pulse Ox O2 Delivery O2 Flow Rate FiO2 09/04/17 13:18 97.0 09/04/17 12:00 97.0 94 19 130/79 (96) 93 97.0 09/04/17 10:17 98.0 09/04/17 10:09 98.0 09/04/17 10:09 98.0 09/04/17 09:10 98.0 09/04/17 09:00 Room Air 09/04/17 08:00 97.2 89 18 134/78 (96) 93 97.2 09/04/17 04:00 98.0 92 20 122/78 (93) 94 98.0 09/04/17 00:00 98.2 89 21 109/68 (82) 92 98.2 09/03/17 21:00 Room Air 09/03/17 20:00 98.5 102 20 121/75 (90) 92 98.5 09/03/17 18:06 97.8 09/03/17 17:36 97.8 09/03/17 16:05 100 20 Room Air 21 09/03/17 16:00 98.1 87 18 126/81 (96) 98 98.1 Intake and Output 09/03/17 09/04/17 19:00 07:00 Intake Total 1250 ml 930 ml Output Total 650 ml 800 ml Balance 600 ml 130 ml IV Total 650 ml 530 ml Other 600 ml 400 ml Output Urine Total 650 ml 800 ml # Bowel Movements 3 Laboratory Tests 09/04/17 05:52: White Blood Count 9.9, Red Blood Count 3.25L, Hemoglobin 9.1L, Hematocrit 27.7L , Mean Corpuscular Volume 85, Mean Corpuscular Hemoglobin 28.1, Mean Corpuscular Hemoglobin Concent 32.9, Red Cell Distribution Width 13.5, Platelet Count 280, Mean Platelet Volume 5.8L, Neutrophils (%) (Auto) 71.9, Lymphocytes ( %) (Auto) 21.6, Monocytes (%) (Auto) 5.3, Eosinophils (%) (Auto) 0.8, Basophils (%) (Auto) 0.4, Erythrocyte Sedimentation Rate 115H, Sodium Level 136, Potassium Level 3.6, Chloride Level 102, Carbon Dioxide Level 27, Anion Gap 7, Blood Urea Nitrogen 12, Creatinine 0.6, Estimat Glomerular Filtration Rate > 60 , Glucose Level 91, Calcium Level 8.0L, Total Bilirubin 0.2, Aspartate Amino Transf (AST/SGOT) 17, Alanine Aminotransferase (ALT/SGPT) 17, Alkaline Phosphatase 71, C-Reactive Protein, Quantitative 5.0H, Total Protein 6.3L, Albumin 1.7L, Globulin 4.6, Albumin/Globulin Ratio 0.4L Height (Feet): 5 Height (Inches): 7.00 Weight (Pounds): 159 General Appearance: lethargic EENT: normal ENT inspection Neck: normal alignment Cardiovascular: normal peripheral pulses, normal rate, regular rhythm Respiratory/Chest: chest wall non-tender, lungs clear, normal breath sounds Abdomen: normal bowel sounds, non tender, soft Extremities: normal inspection Edema: no edema noted Arm (L), no edema noted Arm (R), no edema noted Leg (L), no edema noted Leg (R), no edema noted Pedal (L), no edema noted Pedal (R), no edema noted Generalized Neurologic: motor weakness Skin: normal pigmentation, warm/dry Cheom Dietrich DO Sep 04, 2017 15:34
[2017-09-04 16:00] VITALS: BP 120/65
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
--- NOTE | 2017-09-04 18:54 | Infectious Diseases Prog Note ---
Assessment/Plan Assessment/Plan ASSESSMENT: The patient is a 56-year-old male with multiple medical problems, who has recent empyema/bacteremia due to methicillin-sensitive Staphylococcus aureus ( Signed off AMA on 08/18/17 and had incomplete treatment; only 10 day of 42) -CT chest 08/25: Increased size of loculated right pleural effusion. Small air in the pleural space. Smaller residual left loculated pleural fluid with small air. Small to moderate fluid collection now in the left fissure. Bilateral lower lobe atelectasis/consolidations and air space disease,similar. -s/p VATS, partial pleurectomy, decortication 08/14 -OR findings : Bronchoscopy: A minimal amount of mucopurulent secretion was lavaged and suctioned clear. No endobronchial lesions. -VATS: There were noted to be numerous adhesions tethering along to the surrounding chest wall. The disease appears to be localized in the left lower lobe as the left upper lobe was virtually spared. - OR cx MSSA -CT chest 08/10: Left pleural effusion. Scalloped appearance suggests loculation. Presence of gas bubbles suggest infection by gas-forming organism. Gas bubbles appear trapped within the fluid rather than floating nondependently , indicating the fluid may be highly viscous. - -08/07 Bcx 4/4 MSSA; 08/08 4/4+; 08/10 2/4 +; 08/11 2/4+; 08/13 Neg x4; Bcx 08/27 Negx4; 08/30 NTD -08/28 ESR 126 <86 (08/10), CRP 12 < 27 (08/09) Mild leukocytosis, recurrent- resolved Low grade fever, intermittent; resolved Probable endocarditis (NURA was not done). Thoracic Discitis/Osteomyelitis and epidural abscess T7-T10- causing spinal cord compression; Possible Cervical spodylodiscitis w/ cord compression > Quadriparesis -MRI Cervical spine: Disc narrowing at C5-6. Marrow edema of the adjacent C5 and C6 vertebral bodies is noted. This is most likely due to Modic type I degenerative change and reactive marrow edema, particularly given the absence of edema within the disc. However, the possibility of spondylodiscitis as etiology of this finding, particularly in view of recent diagnosis of thoracic epidural abscess and in view of the slight degree of surrounding soft tissue edema, should also be considered. Severe spinal stenosis with cord compression at multiple levels extending from C3-4 through C5-6. Minimum AP dimension of the spinal canal 5 mm. Due to image degradation, it is uncertain as to whether there is significant cord edema/myelomalacia present. Multilevel severe neural foraminal stenosis as detailed level by level basis above -MRI Thoracic Spine: Suspicion of cord compression T7-T10 secondary to a posterior epidural abscess versus mass. Abscess favored given suspicion of spondylodiscitis at T9-10 as well as bilateral pleural effusions and pneumonia ( recent diagnosed on CT chest). Significantly limited study due to motion. -MRI Lumbar spine: Evidence of T9-10 discitis/osteomyelitis. Suspect related to previously described adjacent bilateral pleural empyemas. Evidence of epidural abscess measuring at least 8 x 11 mm in diameter, and extending at least 5 cm craniocaudad, at and above the T9 level. This results in significant spinal stenosis. Note that it is incompletely included in the imaging volume, and the cephalad extent above mid T7 is unclear. Recommend thoracic MRI for further evaluation. As mentioned above, evidence of bilateral empyemas, with bilateral loculated pleural fluid collections and extensive enhancement and edema of the adjacent soft tissue. Extensive multilevel degenerative changes elsewhere, as detailed on a level by level basis above Polysubstance abuse- refers last IVDA was ~7 yrs ago -UDS (prior admission) +THC, cocaine and amphetamines HIV - non progressor- per patient, never on Tx and CD4 >500 and UD VL -07/2017 CD4 510 (39.2%), VL ND Hep C s/p tx (20 years ago) with sustained virologic response COPD/asthma tobacco abuse (stopped smoking 3d [employer]) PLAN: -. The patient is on oxacillin day # 11-56 (the patient received 11 days of treatment prior to discharge). -monitor LFTs -/ SP IV Vanco and Cefepme #2 -/ SP IV Oxacillin #9 -08/10 SP Ceftriaxone d# 5 and IV Vancomycin #3 -08/06 SP Cefepime x1, Levaquin x1 -. Monitor CBC/CMP, temperatures -. Monitor cultures (Bcx) -NEEDS EMERGENT transfer to tertiary hospital for neurosurgical evaluation for epidural abscess and thoracic discitis and OM as it causing spinal cord compression -awaiting transfer: having too much difficulty finding an accepting facility -Needs also further chest drainage; currently refusing -will also need NURA to eval for endocarditis/valvular abscess ( pt refused ) -f/u repeat Bcx x2 Discussed with RN and family preservation caseworker. Subjective Allergies: Coded Allergies: No Known Allergies (Unverified , 08/06/17) Subjective Bcx NTD awaiting tranfer to higher level of care leukocytosis Objective Vital Signs Last 24 Hour Vital Signs Date Time Temp Pulse Resp B/P (MAP) Pulse Ox O2 Delivery O2 Flow Rate FiO2 09/04/17 16:45 98.0 09/04/17 16:15 98.0 09/04/17 16:00 98.0 95 18 120/65 (83) 95 98.0 09/04/17 13:18 97.0 09/04/17 12:00 97.0 94 19 130/79 (96) 93 97.0 09/04/17 10:17 98.0 09/04/17 10:09 98.0 09/04/17 09:10 98.0 09/04/17 09:00 Room Air 09/04/17 08:00 97.2 89 18 134/78 (96) 93 97.2 09/04/17 04:00 98.0 92 20 122/78 (93) 94 98.0 09/04/17 00:00 98.2 89 21 109/68 (82) 92 98.2 09/03/17 21:00 Room Air 09/03/17 20:00 98.5 102 20 121/75 (90) 92 98.5 Height (Feet): 5 Height (Inches): 7.00 Weight (Pounds): 159 Objective HEENT: No pale conjunctivae. No icterus. NECK: No lymphadenopathy. CHEST: Clear. Incision site is healing. HEART: S1 and S2. ABDOMEN: Soft and nontender. BACK: The patient has tenderness in the lower thoracic and lumbar area. EXTREMITIES: No cyanosis. NEUROLOGIC: Awake and alert. +Babinski, brisk reflexes, LE>UE weakness. no sensory deficits Laboratory Tests Test 09/04/17 05:52 White Blood Count 9.9 K/UL (4.8-10.8) Red Blood Count 3.25 M/UL (4.70-6.10) L Hemoglobin 9.1 G/DL (14.2-18.0) L Hematocrit 27.7 % (42.0-52.0) L Mean Corpuscular Volume 85 FL (80-99) Mean Corpuscular Hemoglobin 28.1 PG (27.0-31.0) Mean Corpuscular Hemoglobin Concent 32.9 G/DL (32.0-36.0) Red Cell Distribution Width 13.5 % (11.6-14.8) Platelet Count 280 K/UL (150-450) Mean Platelet Volume 5.8 FL (6.5-10.1) L Neutrophils (%) (Auto) 71.9 % (45.0-75.0) Lymphocytes (%) (Auto) 21.6 % (20.0-45.0) Monocytes (%) (Auto) 5.3 % (1.0-10.0) Eosinophils (%) (Auto) 0.8 % (0.0-3.0) Basophils (%) (Auto) 0.4 % (0.0-2.0) Erythrocyte Sedimentation Rate 115 MM/HR (0-20) H Sodium Level 136 MMOL/L (136-145) Potassium Level 3.6 MMOL/L (3.5-5.1) Chloride Level 102 MMOL/L (98-107) Carbon Dioxide Level 27 MMOL/L (21-32) Anion Gap 7 mmol/L (5-15) Blood Urea Nitrogen 12 mg/dL (7-18) Creatinine 0.6 MG/DL (0.55-1.30) Estimat Glomerular Filtration Rate > 60 mL/min (>60) Glucose Level 91 MG/DL (74-106) Calcium Level 8.0 MG/DL (8.5-10.1) L Total Bilirubin 0.2 MG/DL (0.2-1.0) Aspartate Amino Transf (AST/SGOT) 17 U/L (15-37) Alanine Aminotransferase (ALT/SGPT) 17 U/L (12-78) Alkaline Phosphatase 71 U/L (46-116) C-Reactive Protein, Quantitative 5.0 mg/dL (0.00-0.90) H Total Protein 6.3 G/DL (6.4-8.2) L Albumin 1.7 G/DL (3.4-5.0) L Globulin 4.6 g/dL Albumin/Globulin Ratio 0.4 (1.0-2.7) L Current Medications Medications (Trade) Dose Ordered Sig/Veronica Route PRN Reason Start Time Stop Time Status Last Admin Dose Admin Acetaminophen (Tylenol) 650 mg Q4H PRN ORAL FEVER 08/25/17 08:15 09/24/17 08:14 08/27/17 13:06 Acetaminophen/ Hydrocodone Bitart ([place] 10/325) 1 tab Q4H PRN ORAL Moderate Pain (Pain Scale 4-6) 09/04/17 08:00 09/11/17 07:59 09/04/17 09:10 Chlorhexidine Gluconate ([place]-Hex 2%) 1 applic DAILY@2000 TOPIC 08/29/17 20:00 09/28/17 19:59 09/03/17 20:33 Dextrose (Dextrose 50%) 25 ml STAT PRN IV Hypoglycemia 08/25/17 08:15 09/24/17 08:14 Dextrose (Dextrose 50%) 50 ml STAT PRN IV Hypoglycemia 08/25/17 08:30 09/24/17 08:29 Docusate Sodium (Colace) 100 mg THREE TIMES A DAY ORAL 08/30/17 13:00 09/29/17 12:59 09/04/17 08:54 Duloxetine HCl (Cymbalta) 30 mg DAILY ORAL 08/25/17 09:00 09/24/17 08:59 09/04/17 08:54 Gabapentin (Neurontin) 300 mg THREE TIMES A DAY ORAL 08/25/17 09:00 09/24/17 08:59 09/04/17 17:01 Heparin Sodium (Porcine) (Heparin 5000 units/ml) 5,000 units EVERY 12 HOURS SUBQ 08/25/17 09:00 09/24/17 08:59 09/04/17 09:01 Hydromorphone HCl (Dilaudid) 1 mg Q3H PRN IVP Severe Pain (Pain Scale 7-10) 09/04/17 10:15 09/11/17 10:14 09/04/17 16:15 Ondansetron HCl (Zofran) 4 mg Q6H PRN IVP Nausea & Vomiting 08/25/17 08:15 09/24/17 08:14 09/04/17 05:23 Oxacillin Sodium 2 gm/Sodium Chloride 110 ml @ 220 mls/hr Q4HR IVPB 08/25/17 21:00 10/04/17 20:59 09/04/17 17:02 Polyethylene Glycol (Miralax) 17 gm DAILYPRN PRN ORAL Constipation 08/25/17 08:15 09/24/17 08:14 09/02/17 14:38 Sodium Chloride 1,000 ml @ 50 mls/hr Q20H IV 08/26/17 13:45 09/25/17 13:44 09/04/17 17:01 Steph Crowder M.D. Sep 04, 2017 18:54
--- NOTE | 2017-09-04 19:43 | Cardiology Progress Note ---
Assessment/Plan Assessment/Plan 1, Bacteremia, refused NURA, continue ABx therapy. 2D echo is technically difficult, no vegetations is identified, however the sensitivity of this test is low. 2. Transient diskitis. 3. Epidural abscess 4. COPD 5. HCV infection 6. HIV disease Subjective Subjective No cardiac events. Objective Last 24 Hour Vital Signs Date Time Temp Pulse Resp B/P (MAP) Pulse Ox O2 Delivery O2 Flow Rate FiO2 09/04/17 16:45 98.0 09/04/17 16:15 98.0 09/04/17 16:00 98.0 95 18 120/65 (83) 95 98.0 09/04/17 13:18 97.0 09/04/17 12:00 97.0 94 19 130/79 (96) 93 97.0 09/04/17 10:17 98.0 09/04/17 10:09 98.0 09/04/17 09:10 98.0 09/04/17 09:00 Room Air 09/04/17 08:00 97.2 89 18 134/78 (96) 93 97.2 09/04/17 04:00 98.0 92 20 122/78 (93) 94 98.0 09/04/17 00:00 98.2 89 21 109/68 (82) 92 98.2 09/03/17 21:00 Room Air 09/03/17 20:00 98.5 102 20 121/75 (90) 92 98.5 Intake and Output 09/03/17 09/04/17 19:00 07:00 Intake Total 1250 ml 930 ml Output Total 650 ml 800 ml Balance 600 ml 130 ml IV Total 650 ml 530 ml Other 600 ml 400 ml Output Urine Total 650 ml 800 ml # Bowel Movements 3 2D Echo: LVEF 55-60%, Grade I LVDD Laboratory Tests Test 09/04/17 05:52 White Blood Count 9.9 K/UL (4.8-10.8) Red Blood Count 3.25 M/UL (4.70-6.10) L Hemoglobin 9.1 G/DL (14.2-18.0) L Hematocrit 27.7 % (42.0-52.0) L Mean Corpuscular Volume 85 FL (80-99) Mean Corpuscular Hemoglobin 28.1 PG (27.0-31.0) Mean Corpuscular Hemoglobin Concent 32.9 G/DL (32.0-36.0) Red Cell Distribution Width 13.5 % (11.6-14.8) Platelet Count 280 K/UL (150-450) Mean Platelet Volume 5.8 FL (6.5-10.1) L Neutrophils (%) (Auto) 71.9 % (45.0-75.0) Lymphocytes (%) (Auto) 21.6 % (20.0-45.0) Monocytes (%) (Auto) 5.3 % (1.0-10.0) Eosinophils (%) (Auto) 0.8 % (0.0-3.0) Basophils (%) (Auto) 0.4 % (0.0-2.0) Erythrocyte Sedimentation Rate 115 MM/HR (0-20) H Sodium Level 136 MMOL/L (136-145) Potassium Level 3.6 MMOL/L (3.5-5.1) Chloride Level 102 MMOL/L (98-107) Carbon Dioxide Level 27 MMOL/L (21-32) Anion Gap 7 mmol/L (5-15) Blood Urea Nitrogen 12 mg/dL (7-18) Creatinine 0.6 MG/DL (0.55-1.30) Estimat Glomerular Filtration Rate > 60 mL/min (>60) Glucose Level 91 MG/DL (74-106) Calcium Level 8.0 MG/DL (8.5-10.1) L Total Bilirubin 0.2 MG/DL (0.2-1.0) Aspartate Amino Transf (AST/SGOT) 17 U/L (15-37) Alanine Aminotransferase (ALT/SGPT) 17 U/L (12-78) Alkaline Phosphatase 71 U/L (46-116) C-Reactive Protein, Quantitative 5.0 mg/dL (0.00-0.90) H Total Protein 6.3 G/DL (6.4-8.2) L Albumin 1.7 G/DL (3.4-5.0) L Globulin 4.6 g/dL Albumin/Globulin Ratio 0.4 (1.0-2.7) L Objective HEENT: Normocephalic, atraumatic, PERRLA, EOMI, No pale conjunctivae. No icterus. NECK: No JVD, no carotid bruit. CHEST: Normal breath sounds HEART: Normal S1 and S2, no murmurs, gallops or rubs. ABDOMEN: Soft and nontender, no hepatosplenomegaly, + BS. BACK: The patient has tenderness in the lower thoracic and lumbar area. EXTREMITIES: No edema , clubbing or cyanosis. Omid Tellez MD Sep 04, 2017 19:43
[2017-09-04 20:00] VITALS: BP 141/71
[2017-09-04] MEDS: Dyna-Hex 2% Top Sol 2oz TOPIC SCH (21:24)
[2017-09-05] VITALS: BP 133/68
[2017-09-05] MEDS: Oxacillin 2 GM in NS 110 ML IVPB SCH ×6 (00:54→20:48)
[2017-09-05] MEDS: HYDROmorphone 1mg/ml Carpuject IVP PRN ×8 (02:07→23:55)
[2017-09-05 04:00] VITALS: BP 140/70
[2017-09-05 07:51] LABS: BASOPHILS % (AUTO) 0.4 % (0.0-2.0); EOSINOPHILS % (AUTO) 1.1 % (0.0-3.0); HEMATOCRIT 27.5 % (42.0-52.0); HEMOGLOBIN 8.8 G/DL (14.2-18.0); LYMPHOCYTES % (AUTO) 23.1 % (20.0-45.0); MEAN CORPUSCULAR VOLUME 86 FL (80-99); NEUTROPHILS % (AUTO) 69.5 % (45.0-75.0); PLATELET COUNT 259 K/UL (150-450); RED BLOOD COUNT 3.19 M/UL (4.70-6.10); RED CELL DISTRIBUTION WIDTH 13.8 % (11.6-14.8); WHITE BLOOD COUNT 7.8 K/UL (4.8-10.8)
[2017-09-05 08:00] VITALS: BP 138/75
--- NOTE | 2017-09-05 08:00 | General Progress Note ---
Assessment/Plan Assessment/Plan (1) Left sided wall chest pain (2) Lung effusion possible empyema (3) S/p VATS (4) Intercostal Neuropathy (5) Lumbar Spondylosis (6) T9-10 discitis/osteomyelitis with epidural abscess (7) Cervical spinal stenosis We will continue Dilaudid, [place] and Neurontin. Recommend Neurosurgical consultation as per flosser. D/w Dr. Stevens and he concurred. Subjective Date patient seen: Sep 05, 2017 Time patient seen: 07:00 - am Allergies: Coded Allergies: No Known Allergies (Unverified , 08/06/17) Subjective REVIEW OF SYSTEMS: Denies rash, fever, chills, sweating, dizziness, drowsiness, blurred vision, sore throat, or change in weight. No nausea, vomiting, diarrhea, or blood in the stool or urine. He is complaining of left chest wall pain and back pain. SUBJECTIVE: Patient reports that the pain has been severe waiting for transfer to higher level of care hospital for surgical intervention. Pain has been stable on the Dilaudid and [place]. He has no new complaints. Objective Last 24 Hour Vital Signs Date Time Temp Pulse Resp B/P (MAP) Pulse Ox O2 Delivery O2 Flow Rate FiO2 09/05/17 04:00 98.0 72 20 140/70 (93) 92 98.0 09/05/17 00:00 98.0 84 20 133/68 (89) 92 98.0 09/04/17 21:00 Room Air 09/04/17 20:00 90 20 Room Air 21 09/04/17 20:00 98.9 93 20 141/71 (94) 92 98.9 09/04/17 16:45 98.0 09/04/17 16:15 98.0 09/04/17 16:00 98.0 95 18 120/65 (83) 95 98.0 09/04/17 13:18 97.0 09/04/17 12:00 97.0 94 19 130/79 (96) 93 97.0 09/04/17 10:17 98.0 09/04/17 10:09 98.0 09/04/17 09:10 98.0 09/04/17 09:00 Room Air 09/04/17 08:00 97.2 89 18 134/78 (96) 93 97.2 Intake and Output 09/04/17 09/05/17 19:00 07:00 Intake Total 1700 ml 805 ml Output Total 600 ml 800 ml Balance 1100 ml 5 ml Intake Oral 1100 ml IV Total 600 ml 805 ml Output Urine Total 600 ml 800 ml # Bowel Movements 2 3 Laboratory Tests 09/05/17 06:00: White Blood Count 7.8, Red Blood Count 3.19L, Hemoglobin 8.8L, Hematocrit 27.5L , Mean Corpuscular Volume 86, Mean Corpuscular Hemoglobin 27.6, Mean Corpuscular Hemoglobin Concent 32.0, Red Cell Distribution Width 13.8, Platelet Count 259, Mean Platelet Volume 5.4L, Neutrophils (%) (Auto) 69.5, Lymphocytes ( %) (Auto) 23.1, Monocytes (%) (Auto) 6.0, Eosinophils (%) (Auto) 1.1, Basophils (%) (Auto) 0.4, Sodium Level [Pending], Potassium Level [Pending], Chloride Level [Pending], Carbon Dioxide Level [Pending], Blood Urea Nitrogen [Pending], Creatinine [Pending], Estimat Glomerular Filtration Rate [Pending], Glucose Level [Pending], Calcium Level [Pending] Height (Feet): 5 Height (Inches): 7.00 Weight (Pounds): 166 Objective GENERAL: Alert, awake, and oriented. LUNGS: Decreased breath sounds bilaterally. HEART: S1 S2 Regular. ABDOMEN: Benign. EXTREMITIES: No cyanosis. No clubbing. No edema. NEURO: No changes. Mark Rausch Sep 05, 2017 08:00
[2017-09-05] MEDS: DULoxetine 30mg cap ORAL SCH (08:05)
[2017-09-05] MEDS: Heparin 5000 units/ml inj SUBQ SCH ×2 (08:11→20:44)
[2017-09-05 08:21] LABS: ANION GAP 8 mmol/L (5-15); BLOOD UREA NITROGEN 8 mg/dL (7-18); CALCIUM 7.6 MG/DL (8.5-10.1); CARBON DIOXIDE 27 MMOL/L (21-32); CHLORIDE 102 MMOL/L (98-107); CREATININE 0.5 MG/DL (0.55-1.30); POTASSIUM 3.6 MMOL/L (3.5-5.1); SODIUM 137 MMOL/L (136-145)
[2017-09-05] MEDS: Docusate 100mg cap ORAL SCH ×3 (09:00→17:25)
--- NOTE | 2017-09-05 10:18 | History and Physical ---
History of Present Illness General Date patient seen: Aug 27, 2017 Reason for Hospitalization: Back Pain-No Injury Present Illness HPI 56-year-old male who was recently admitted for sepsis and bacteremia from MSSA secondary to empyema of his left lung. He had thoracoscopy and chest, which eventually removed and pt signed AMA afterwards. He called 911 because of severe weakness and pain. He was found in the bathtub and unable to get up. He 's been having fever and chills. Pain is 10 out of 10. No nausea no vomiting. He had leukocytosis and low grade fever on presentation and is admitted for further work/up. Allergies: Coded Allergies: No Known Allergies (Unverified , 08/06/17) Medication History Scheduled PRN Hydrocodone Bit/Acetaminophen 5-325* ([place] 5-325*), 1 TAB ORAL Q4H PRN for For Pain, (Reported) Patient History Healthcare decision maker Resuscitation status Full Code Advanced Directive on File Past Medical/Surgical History Past Medical/Surgical History: (1) Empyema (2) HIV (human immunodeficiency virus infection) (3) Hepatitis C (4) Hypoalbuminemia (5) COPD (chronic obstructive pulmonary disease) (6) Chronic pain Review of Systems Hematologic/Lymphatic: Reports: no symptoms Physical Exam General Appearance: WD/WN, no apparent distress, alert Lines, tubes and drains: peripheral HEENT: normocephalic, atraumatic Neck: non-tender, normal alignment, supple Respiratory/Chest: chest wall non-tender, lungs clear, normal breath sounds Breasts: no masses Cardiovascular/Chest: normal peripheral pulses, normal rate Abdomen: normal bowel sounds, non tender Genitourinary/Rectal: normal genital exam Extremities: normal range of motion 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 Last 24 Hour Vital Signs Date Time Temp Pulse Resp B/P (MAP) Pulse Ox O2 Delivery O2 Flow Rate FiO2 09/05/17 08:08 98.0 09/05/17 08:00 98.2 85 20 138/75 (96) 92 98.2 09/05/17 04:00 98.0 72 20 140/70 (93) 92 98.0 09/05/17 00:00 98.0 84 20 133/68 (89) 92 98.0 09/04/17 21:00 Room Air 09/04/17 20:00 90 20 Room Air 21 09/04/17 20:00 98.9 93 20 141/71 (94) 92 98.9 09/04/17 16:45 98.0 09/04/17 16:15 98.0 09/04/17 16:00 98.0 95 18 120/65 (83) 95 98.0 09/04/17 13:18 97.0 09/04/17 12:00 97.0 94 19 130/79 (96) 93 97.0 09/04/17 10:17 98.0 Intake and Output 09/04/17 09/05/17 19:00 07:00 Intake Total 1700 ml 805 ml Output Total 600 ml 800 ml Balance 1100 ml 5 ml Intake Oral 1100 ml IV Total 600 ml 805 ml Output Urine Total 600 ml 800 ml # Bowel Movements 2 3 Laboratory Tests Test 09/05/17 06:00 White Blood Count 7.8 K/UL (4.8-10.8) Red Blood Count 3.19 M/UL (4.70-6.10) L Hemoglobin 8.8 G/DL (14.2-18.0) L Hematocrit 27.5 % (42.0-52.0) L Mean Corpuscular Volume 86 FL (80-99) Mean Corpuscular Hemoglobin 27.6 PG (27.0-31.0) Mean Corpuscular Hemoglobin Concent 32.0 G/DL (32.0-36.0) Red Cell Distribution Width 13.8 % (11.6-14.8) Platelet Count 259 K/UL (150-450) Mean Platelet Volume 5.4 FL (6.5-10.1) L Neutrophils (%) (Auto) 69.5 % (45.0-75.0) Lymphocytes (%) (Auto) 23.1 % (20.0-45.0) Monocytes (%) (Auto) 6.0 % (1.0-10.0) Eosinophils (%) (Auto) 1.1 % (0.0-3.0) Basophils (%) (Auto) 0.4 % (0.0-2.0) Sodium Level 137 MMOL/L (136-145) Potassium Level 3.6 MMOL/L (3.5-5.1) Chloride Level 102 MMOL/L (98-107) Carbon Dioxide Level 27 MMOL/L (21-32) Anion Gap 8 mmol/L (5-15) Blood Urea Nitrogen 8 mg/dL (7-18) Creatinine 0.5 MG/DL (0.55-1.30) L Estimat Glomerular Filtration Rate > 60 mL/min (>60) Glucose Level 84 MG/DL (74-106) Calcium Level 7.6 MG/DL (8.5-10.1) L Height (Feet): 5 Height (Inches): 7.00 Weight (Pounds): 166 Medications Current Medications Medications (Trade) Dose Ordered Sig/Veronica Route PRN Reason Start Time Stop Time Status Last Admin Dose Admin Acetaminophen (Tylenol) 650 mg Q4H PRN ORAL FEVER 08/25/17 08:15 09/24/17 08:14 08/27/17 13:06 Acetaminophen/ Hydrocodone Bitart ([place] 10/325) 1 tab Q4H PRN ORAL Moderate Pain (Pain Scale 4-6) 09/04/17 08:00 09/11/17 07:59 09/04/17 09:10 Chlorhexidine Gluconate ([place]-Hex 2%) 1 applic DAILY@2000 TOPIC 08/29/17 20:00 09/28/17 19:59 09/04/17 21:24 Dextrose (Dextrose 50%) 25 ml STAT PRN IV Hypoglycemia 08/25/17 08:15 09/24/17 08:14 Dextrose (Dextrose 50%) 50 ml STAT PRN IV Hypoglycemia 08/25/17 08:30 09/24/17 08:29 Docusate Sodium (Colace) 100 mg THREE TIMES A DAY ORAL 08/30/17 13:00 09/29/17 12:59 09/04/17 08:54 Duloxetine HCl (Cymbalta) 30 mg DAILY ORAL 08/25/17 09:00 09/24/17 08:59 09/05/17 08:05 Gabapentin (Neurontin) 300 mg THREE TIMES A DAY ORAL 08/25/17 09:00 09/24/17 08:59 09/05/17 08:05 Heparin Sodium (Porcine) (Heparin 5000 units/ml) 5,000 units EVERY 12 HOURS SUBQ 08/25/17 09:00 09/24/17 08:59 09/05/17 08:11 Hydromorphone HCl (Dilaudid) 1 mg Q3H PRN IVP Severe Pain (Pain Scale 7-10) 09/04/17 10:15 09/11/17 10:14 09/05/17 08:08 Ondansetron HCl (Zofran) 4 mg Q6H PRN IVP Nausea & Vomiting 08/25/17 08:15 09/24/17 08:14 09/04/17 05:23 Oxacillin Sodium 2 gm/Sodium Chloride 110 ml @ 220 mls/hr Q4HR IVPB 08/25/17 21:00 10/04/17 20:59 09/05/17 08:06 Polyethylene Glycol (Miralax) 17 gm DAILYPRN PRN ORAL Constipation 08/25/17 08:15 09/24/17 08:14 09/02/17 14:38 Sodium Chloride 1,000 ml @ 50 mls/hr Q20H IV 08/26/17 13:45 09/25/17 13:44 09/04/17 17:01 Assessment/Plan Problem List: (1) Epidural abscess ICD Codes: G06.2 - Extradural and subdural abscess, unspecified SNOMED: 81233550 (2) Sepsis ICD Codes: A41.9 - Sepsis, unspecified organism SNOMED: 59102825 Qualifiers: Qualified Codes: A41.9 - Sepsis, unspecified organism (3) Osteomyelitis ICD Codes: M86.9 - Osteomyelitis, unspecified SNOMED: 18154075 (4) COPD (chronic obstructive pulmonary disease) ICD Codes: J44.9 - Chronic obstructive pulmonary disease, unspecified SNOMED: 86738845 (5) Hypoalbuminemia ICD Codes: E88.09 - Other disorders of plasma-protein metabolism, not elsewhere classified SNOMED: 897517726 (6) Hepatitis C ICD Codes: B19.20 - Unspecified viral hepatitis C without hepatic coma SNOMED: 93378765 (7) HIV (human immunodeficiency virus infection) ICD Codes: B20 - Human immunodeficiency virus [HIV] disease SNOMED: 46538433 (8) Pleural effusion ICD Codes: J90 - Pleural effusion, not elsewhere classified SNOMED: 47120407 Assessment/Plan wilson cultures might need thoracentesis again continue abx f/u wbc and temperature daily respiratory treatment titrate fio2 to sat of 92% Sally Cox MD Sep 05, 2017 10:17
[2017-09-05 12:00] VITALS: BP 119/73
--- NOTE | 2017-09-05 13:13 | Pulmonology Progress Note ---
Assessment/Plan Problems: (1) Epidural abscess (2) Sepsis (3) Osteomyelitis (4) COPD (chronic obstructive pulmonary disease) (5) Hypoalbuminemia (6) Hepatitis C (7) HIV (human immunodeficiency virus infection) (8) Pleural effusion Assessment/Plan pain management no new complains spine surgery evaluation can not be done at this facility iv abx check electrolytes symptomatic treatment transfer to higher level of care Subjective ROS Limited/Unobtainable: No Constitutional: Reports: no symptoms HEENT: Repors: no symptoms Respiratory: Reports: no symptoms Allergies: Coded Allergies: No Known Allergies (Unverified , 08/06/17) Objective Last 24 Hour Vital Signs Date Time Temp Pulse Resp B/P (MAP) Pulse Ox O2 Delivery O2 Flow Rate FiO2 09/05/17 12:00 97.9 72 22 119/73 (88) 92 97.9 09/05/17 11:43 98.0 09/05/17 11:13 98.0 09/05/17 09:00 Room Air 09/05/17 08:08 98.0 09/05/17 08:00 98.2 85 20 138/75 (96) 92 98.2 09/05/17 04:00 98.0 72 20 140/70 (93) 92 98.0 09/05/17 00:00 98.0 84 20 133/68 (89) 92 98.0 09/04/17 21:00 Room Air 09/04/17 20:00 90 20 Room Air 21 09/04/17 20:00 98.9 93 20 141/71 (94) 92 98.9 09/04/17 16:15 98.0 09/04/17 16:00 98.0 95 18 120/65 (83) 95 98.0 09/04/17 13:18 97.0 Intake and Output 09/04/17 09/05/17 19:00 07:00 Intake Total 1700 ml 805 ml Output Total 600 ml 800 ml Balance 1100 ml 5 ml Intake Oral 1100 ml IV Total 600 ml 805 ml Output Urine Total 600 ml 800 ml # Bowel Movements 2 3 General Appearance: WD/WN HEENT: normocephalic Respiratory/Chest: chest wall non-tender, lungs clear Cardiovascular: normal peripheral pulses, normal rate Abdomen: normal bowel sounds, soft, non tender Genitourinary: normal external genitalia Extremities: no cyanosis Skin: no rash Laboratory Tests 09/05/17 06:00: White Blood Count 7.8, Red Blood Count 3.19L, Hemoglobin 8.8L, Hematocrit 27.5L , Mean Corpuscular Volume 86, Mean Corpuscular Hemoglobin 27.6, Mean Corpuscular Hemoglobin Concent 32.0, Red Cell Distribution Width 13.8, Platelet Count 259, Mean Platelet Volume 5.4L, Neutrophils (%) (Auto) 69.5, Lymphocytes ( %) (Auto) 23.1, Monocytes (%) (Auto) 6.0, Eosinophils (%) (Auto) 1.1, Basophils (%) (Auto) 0.4, Sodium Level 137, Potassium Level 3.6, Chloride Level 102, Carbon Dioxide Level 27, Anion Gap 8, Blood Urea Nitrogen 8, Creatinine 0.5L, Estimat Glomerular Filtration Rate > 60, Glucose Level 84, Calcium Level 7.6L Current Medications Medications (Trade) Dose Ordered Sig/Veronica Route PRN Reason Start Time Stop Time Status Last Admin Dose Admin Acetaminophen (Tylenol) 650 mg Q4H PRN ORAL FEVER 08/25/17 08:15 09/24/17 08:14 08/27/17 13:06 Acetaminophen/ Hydrocodone Bitart ([place] 10/325) 1 tab Q4H PRN ORAL Moderate Pain (Pain Scale 4-6) 09/04/17 08:00 09/11/17 07:59 09/04/17 09:10 Acetaminophen/ Hydrocodone Bitart ([place]worth 10/325) 1 tab Q4H PRN ORAL For breakthrough pain 09/05/17 11:00 09/12/17 10:59 Chlorhexidine Gluconate (Nishi-Hex 2%) 1 applic DAILY@1999 TOPIC 08/29/17 20:00 09/28/17 19:59 09/04/17 21:24 Dextrose (Dextrose 50%) 25 ml STAT PRN IV Hypoglycemia 08/25/17 08:15 09/24/17 08:14 Dextrose (Dextrose 50%) 50 ml STAT PRN IV Hypoglycemia 08/25/17 08:30 09/24/17 08:29 Docusate Sodium (Colace) 100 mg THREE TIMES A DAY ORAL 08/30/17 13:00 09/29/17 12:59 09/04/17 08:54 Duloxetine HCl (Cymbalta) 30 mg DAILY ORAL 08/25/17 09:00 09/24/17 08:59 09/05/17 08:05 Gabapentin (Neurontin) 300 mg THREE TIMES A DAY ORAL 08/25/17 09:00 09/24/17 08:59 09/05/17 12:57 Heparin Sodium (Porcine) (Heparin 5000 units/ml) 5,000 units EVERY 12 HOURS SUBQ 08/25/17 09:00 09/24/17 08:59 09/05/17 08:11 Hydromorphone HCl (Dilaudid) 1 mg Q3H PRN IVP Severe Pain (Pain Scale 7-10) 09/04/17 10:15 09/11/17 10:14 09/05/17 11:13 Ondansetron HCl (Zofran) 4 mg Q6H PRN IVP Nausea & Vomiting 08/25/17 08:15 09/24/17 08:14 09/04/17 05:23 Oxacillin Sodium 2 gm/Sodium Chloride 110 ml @ 220 mls/hr Q4HR IVPB 08/25/17 21:00 10/04/17 20:59 09/05/17 12:58 Polyethylene Glycol (Miralax) 17 gm DAILYPRN PRN ORAL Constipation 08/25/17 08:15 09/24/17 08:14 09/02/17 14:38 Sodium Chloride 1,000 ml @ 50 mls/hr Q20H IV 08/26/17 13:45 09/25/17 13:44 09/05/17 13:00 Sally Cox MD Sep 05, 2017 13:13
[2017-09-05] MEDS: HYDROcodone/Acetamin 10/325 tab ORAL PRN ×2 (13:15→22:08)
--- NOTE | 2017-09-05 13:27 | General Surgery Progress Note ---
General Surgery-Progress Note Subjective Symptoms: improved Objective Last 24 Hour Vital Signs Date Time Temp Pulse Resp B/P (MAP) Pulse Ox O2 Delivery O2 Flow Rate FiO2 09/05/17 13:15 97.9 09/05/17 12:00 97.9 72 22 119/73 (88) 92 97.9 09/05/17 11:43 98.0 09/05/17 11:13 98.0 09/05/17 09:00 Room Air 09/05/17 08:08 98.0 09/05/17 08:00 98.2 85 20 138/75 (96) 92 98.2 09/05/17 04:00 98.0 72 20 140/70 (93) 92 98.0 09/05/17 00:00 98.0 84 20 133/68 (89) 92 98.0 09/04/17 21:00 Room Air 09/04/17 20:00 90 20 Room Air 21 09/04/17 20:00 98.9 93 20 141/71 (94) 92 98.9 09/04/17 16:15 98.0 09/04/17 16:00 98.0 95 18 120/65 (83) 95 98.0 I&O Intake and Output 09/04/17 09/05/17 19:00 07:00 Intake Total 1700 ml 805 ml Output Total 600 ml 800 ml Balance 1100 ml 5 ml Intake Oral 1100 ml IV Total 600 ml 805 ml Output Urine Total 600 ml 800 ml # Bowel Movements 2 3 Wound: clean, dry Drains: none Cardiovascular: RSR Respiratory: clear Abdomen: soft, flat Extremities: no tenderness Laboratory Tests Test 09/05/17 06:00 White Blood Count 7.8 K/UL (4.8-10.8) Red Blood Count 3.19 M/UL (4.70-6.10) L Hemoglobin 8.8 G/DL (14.2-18.0) L Hematocrit 27.5 % (42.0-52.0) L Mean Corpuscular Volume 86 FL (80-99) Mean Corpuscular Hemoglobin 27.6 PG (27.0-31.0) Mean Corpuscular Hemoglobin Concent 32.0 G/DL (32.0-36.0) Red Cell Distribution Width 13.8 % (11.6-14.8) Platelet Count 259 K/UL (150-450) Mean Platelet Volume 5.4 FL (6.5-10.1) L Neutrophils (%) (Auto) 69.5 % (45.0-75.0) Lymphocytes (%) (Auto) 23.1 % (20.0-45.0) Monocytes (%) (Auto) 6.0 % (1.0-10.0) Eosinophils (%) (Auto) 1.1 % (0.0-3.0) Basophils (%) (Auto) 0.4 % (0.0-2.0) Sodium Level 137 MMOL/L (136-145) Potassium Level 3.6 MMOL/L (3.5-5.1) Chloride Level 102 MMOL/L (98-107) Carbon Dioxide Level 27 MMOL/L (21-32) Anion Gap 8 mmol/L (5-15) Blood Urea Nitrogen 8 mg/dL (7-18) Creatinine 0.5 MG/DL (0.55-1.30) L Estimat Glomerular Filtration Rate > 60 mL/min (>60) Glucose Level 84 MG/DL (74-106) Calcium Level 7.6 MG/DL (8.5-10.1) L Plan Problems: (1) Empyema Assessment & Plan: s/p VATS. since chest tube removed. wounds healing. no signs of surgical site infection. does have pain on left ribs and likely healing from surgery patient signed out AMA last hospitalization prior to completion of therapy. Repeat chest CT now with larger right sided effusion possible empyema. MRI spine reviewed. spine abscess recommend tap of right side for cultures / eval -patient declined and refused thoracentesis needs spine surgery eval. possibly may need transfer to high level of care IV Abx will follow with Brian Milligan Sep 05, 2017 13:27
--- NOTE | 2017-09-05 14:03 | General Progress Note ---
Assessment/Plan Problem List: (1) Chronic pain ICD Codes: G89.29 - Other chronic pain SNOMED: 10090167 (2) Hypokalemia ICD Codes: E87.6 - Hypokalemia SNOMED: 16336790 (3) HIV (human immunodeficiency virus infection) ICD Codes: B20 - Human immunodeficiency virus [HIV] disease SNOMED: 52516584 (4) Sepsis ICD Codes: A41.9 - Sepsis, unspecified organism SNOMED: 66167789 Qualifiers: Qualified Codes: A41.9 - Sepsis, unspecified organism (5) Empyema ICD Codes: J86.9 - Pyothorax without fistula SNOMED: 244854835 (6) Drug abuse and dependence ICD Codes: F19.20 - Other psychoactive substance dependence, uncomplicated SNOMED: 8687091 (7) Epidural abscess ICD Codes: G06.2 - Extradural and subdural abscess, unspecified SNOMED: 26398748 Status: unchanged Assessment/Plan ot pt diet abx neph f/u cbc bmp am higher level care prn Subjective Constitutional: Reports: weakness Allergies: Coded Allergies: No Known Allergies (Unverified , 08/06/17) All Systems: reviewed and negative except above Subjective o2nc sleepy calm Objective Last 24 Hour Vital Signs Date Time Temp Pulse Resp B/P (MAP) Pulse Ox O2 Delivery O2 Flow Rate FiO2 09/05/17 13:15 97.9 09/05/17 12:00 97.9 72 22 119/73 (88) 92 97.9 09/05/17 11:43 98.0 09/05/17 11:13 98.0 09/05/17 09:00 Room Air 09/05/17 08:08 98.0 09/05/17 08:00 98.2 85 20 138/75 (96) 92 98.2 09/05/17 04:00 98.0 72 20 140/70 (93) 92 98.0 09/05/17 00:00 98.0 84 20 133/68 (89) 92 98.0 09/04/17 21:00 Room Air 09/04/17 20:00 90 20 Room Air 21 09/04/17 20:00 98.9 93 20 141/71 (94) 92 98.9 09/04/17 16:15 98.0 09/04/17 16:00 98.0 95 18 120/65 (83) 95 98.0 Intake and Output 09/04/17 09/05/17 19:00 07:00 Intake Total 1700 ml 805 ml Output Total 600 ml 800 ml Balance 1100 ml 5 ml Intake Oral 1100 ml IV Total 600 ml 805 ml Output Urine Total 600 ml 800 ml # Bowel Movements 2 3 Laboratory Tests 09/05/17 06:00: White Blood Count 7.8, Red Blood Count 3.19L, Hemoglobin 8.8L, Hematocrit 27.5L , Mean Corpuscular Volume 86, Mean Corpuscular Hemoglobin 27.6, Mean Corpuscular Hemoglobin Concent 32.0, Red Cell Distribution Width 13.8, Platelet Count 259, Mean Platelet Volume 5.4L, Neutrophils (%) (Auto) 69.5, Lymphocytes ( %) (Auto) 23.1, Monocytes (%) (Auto) 6.0, Eosinophils (%) (Auto) 1.1, Basophils (%) (Auto) 0.4, Sodium Level 137, Potassium Level 3.6, Chloride Level 102, Carbon Dioxide Level 27, Anion Gap 8, Blood Urea Nitrogen 8, Creatinine 0.5L, Estimat Glomerular Filtration Rate > 60, Glucose Level 84, Calcium Level 7.6L Height (Feet): 5 Height (Inches): 7.00 Weight (Pounds): 166 General Appearance: lethargic EENT: normal ENT inspection Neck: normal alignment Cardiovascular: normal peripheral pulses, normal rate, regular rhythm Respiratory/Chest: chest wall non-tender, lungs clear, normal breath sounds Extremities: normal inspection Edema: no edema noted Arm (L), no edema noted Arm (R), no edema noted Leg (L), no edema noted Leg (R), no edema noted Pedal (L), no edema noted Pedal (R), no edema noted Generalized Neurologic: responsive, motor weakness Skin: normal pigmentation, warm/dry Chemo Dietrich DO Sep 05, 2017 14:03
[2017-09-05 16:00] VITALS: BP 121/63
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
--- NOTE | 2017-09-05 17:19 | Infectious Diseases Prog Note ---
Assessment/Plan Assessment/Plan ASSESSMENT: The patient is a 56-year-old male with multiple medical problems, who has recent empyema/bacteremia due to methicillin-sensitive Staphylococcus aureus ( Signed off AMA on 08/18/17 and had incomplete treatment; only 10 day of 42) -CT chest 08/25: Increased size of loculated right pleural effusion. Small air in the pleural space. Smaller residual left loculated pleural fluid with small air. Small to moderate fluid collection now in the left fissure. Bilateral lower lobe atelectasis/consolidations and air space disease,similar. -s/p VATS, partial pleurectomy, decortication 08/14 -OR findings : Bronchoscopy: A minimal amount of mucopurulent secretion was lavaged and suctioned clear. No endobronchial lesions. -VATS: There were noted to be numerous adhesions tethering along to the surrounding chest wall. The disease appears to be localized in the left lower lobe as the left upper lobe was virtually spared. - OR cx MSSA -CT chest 08/10: Left pleural effusion. Scalloped appearance suggests loculation. Presence of gas bubbles suggest infection by gas-forming organism. Gas bubbles appear trapped within the fluid rather than floating nondependently , indicating the fluid may be highly viscous. - -08/07 Bcx 4/4 MSSA; 08/08 4/4+; 08/10 2/4 +; 08/11 2/4+; 08/13 Neg x4; Bcx 08/27 Negx4; 08/30 NTD -08/28 ESR 126 <86 (08/10), CRP 12 < 27 (08/09) Mild leukocytosis, recurrent- resolved Low grade fever, intermittent; resolved Probable endocarditis (NURA was not done). Thoracic Discitis/Osteomyelitis and epidural abscess T7-T10- causing spinal cord compression; Possible Cervical spodylodiscitis w/ cord compression > Quadriparesis -MRI Cervical spine: Disc narrowing at C5-6. Marrow edema of the adjacent C5 and C6 vertebral bodies is noted. This is most likely due to Modic type I degenerative change and reactive marrow edema, particularly given the absence of edema within the disc. However, the possibility of spondylodiscitis as etiology of this finding, particularly in view of recent diagnosis of thoracic epidural abscess and in view of the slight degree of surrounding soft tissue edema, should also be considered. Severe spinal stenosis with cord compression at multiple levels extending from C3-4 through C5-6. Minimum AP dimension of the spinal canal 5 mm. Due to image degradation, it is uncertain as to whether there is significant cord edema/myelomalacia present. Multilevel severe neural foraminal stenosis as detailed level by level basis above -MRI Thoracic Spine: Suspicion of cord compression T7-T10 secondary to a posterior epidural abscess versus mass. Abscess favored given suspicion of spondylodiscitis at T9-10 as well as bilateral pleural effusions and pneumonia ( recent diagnosed on CT chest). Significantly limited study due to motion. -MRI Lumbar spine: Evidence of T9-10 discitis/osteomyelitis. Suspect related to previously described adjacent bilateral pleural empyemas. Evidence of epidural abscess measuring at least 8 x 11 mm in diameter, and extending at least 5 cm craniocaudad, at and above the T9 level. This results in significant spinal stenosis. Note that it is incompletely included in the imaging volume, and the cephalad extent above mid T7 is unclear. Recommend thoracic MRI for further evaluation. As mentioned above, evidence of bilateral empyemas, with bilateral loculated pleural fluid collections and extensive enhancement and edema of the adjacent soft tissue. 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 The patient is on oxacillin day # 12/42-56 (the patient received 11 days of treatment prior to discharge). -monitor LFTs -/14 SP IV Vanco and Cefepme #2 -/ SP IV Oxacillin #9 -08/10 SP Ceftriaxone d# 5 and IV Vancomycin #3 -08/06 SP Cefepime x1, Levaquin x1 -. Monitor CBC/CMP, temperatures -. Monitor cultures (Bcx) -NEEDS EMERGENT transfer to tertiary hospital for neurosurgical evaluation for epidural abscess and thoracic discitis and OM as it causing spinal cord compression -awaiting transfer: having too much difficulty finding an accepting facility -Needs also further chest drainage; currently refusing -will also need NURA to eval for endocarditis/valvular abscess ( pt refused ) -f/u repeat Bcx x2 Discussed with RN Subjective Allergies: Coded Allergies: No Known Allergies (Unverified , 08/06/17) Subjective Bcx NTD awaiting tranfer to higher level of care leukocytosis resolved afebrile Objective Vital Signs Last 24 Hour Vital Signs Date Time Temp Pulse Resp B/P (MAP) Pulse Ox O2 Delivery O2 Flow Rate FiO2 09/05/17 16:00 98.6 75 19 121/63 (82) 92 98.6 09/05/17 14:18 97.9 09/05/17 14:14 97.9 09/05/17 14:14 97.9 09/05/17 13:15 97.9 09/05/17 12:00 97.9 72 22 119/73 (88) 92 97.9 09/05/17 11:13 98.0 09/05/17 09:00 Room Air 09/05/17 08:08 98.0 09/05/17 08:00 98.2 85 20 138/75 (96) 92 98.2 09/05/17 04:00 98.0 72 20 140/70 (93) 92 98.0 09/05/17 00:00 98.0 84 20 133/68 (89) 92 98.0 09/04/17 21:00 Room Air 09/04/17 20:00 90 20 Room Air 21 09/04/17 20:00 98.9 93 20 141/71 (94) 92 98.9 Height (Feet): 5 Height (Inches): 7.00 Weight (Pounds): 166 Objective HEENT: No pale conjunctivae. No icterus. NECK: No lymphadenopathy. CHEST: Clear. Incision site is healing. HEART: S1 and S2. ABDOMEN: Soft and nontender. BACK: The patient has tenderness in the lower thoracic and lumbar area. EXTREMITIES: No cyanosis. NEUROLOGIC: Awake and alert. +Babinski, brisk reflexes, LE>UE weakness. no sensory deficits Laboratory Tests Test 09/05/17 06:00 White Blood Count 7.8 K/UL (4.8-10.8) Red Blood Count 3.19 M/UL (4.70-6.10) L Hemoglobin 8.8 G/DL (14.2-18.0) L Hematocrit 27.5 % (42.0-52.0) L Mean Corpuscular Volume 86 FL (80-99) Mean Corpuscular Hemoglobin 27.6 PG (27.0-31.0) Mean Corpuscular Hemoglobin Concent 32.0 G/DL (32.0-36.0) Red Cell Distribution Width 13.8 % (11.6-14.8) Platelet Count 259 K/UL (150-450) Mean Platelet Volume 5.4 FL (6.5-10.1) L Neutrophils (%) (Auto) 69.5 % (45.0-75.0) Lymphocytes (%) (Auto) 23.1 % (20.0-45.0) Monocytes (%) (Auto) 6.0 % (1.0-10.0) Eosinophils (%) (Auto) 1.1 % (0.0-3.0) Basophils (%) (Auto) 0.4 % (0.0-2.0) Sodium Level 137 MMOL/L (136-145) Potassium Level 3.6 MMOL/L (3.5-5.1) Chloride Level 102 MMOL/L (98-107) Carbon Dioxide Level 27 MMOL/L (21-32) Anion Gap 8 mmol/L (5-15) Blood Urea Nitrogen 8 mg/dL (7-18) Creatinine 0.5 MG/DL (0.55-1.30) L Estimat Glomerular Filtration Rate > 60 mL/min (>60) Glucose Level 84 MG/DL (74-106) Calcium Level 7.6 MG/DL (8.5-10.1) L Current Medications Medications (Trade) Dose Ordered Sig/Veronica Route PRN Reason Start Time Stop Time Status Last Admin Dose Admin Acetaminophen (Tylenol) 650 mg Q4H PRN ORAL FEVER 08/25/17 08:15 09/24/17 08:14 08/27/17 13:06 Acetaminophen/ Hydrocodone Bitart ([place] 10/325) 1 tab Q4H PRN ORAL Moderate Pain (Pain Scale 4-6) 09/04/17 08:00 09/11/17 07:59 09/04/17 09:10 Acetaminophen/ Hydrocodone Bitart ([place] 10/325) 1 tab Q4H PRN ORAL For breakthrough pain 09/05/17 11:00 09/12/17 10:59 09/05/17 13:15 Chlorhexidine Gluconate ([place]ishi-Hex 2%) 1 applic DAILY@2000 TOPIC 08/29/17 20:00 09/28/17 19:59 09/04/17 21:24 Dextrose (Dextrose 50%) 25 ml STAT PRN IV Hypoglycemia 08/25/17 08:15 09/24/17 08:14 Dextrose (Dextrose 50%) 50 ml STAT PRN IV Hypoglycemia 08/25/17 08:30 09/24/17 08:29 Docusate Sodium (Colace) 100 mg THREE TIMES A DAY ORAL 08/30/17 13:00 09/29/17 12:59 09/04/17 08:54 Duloxetine HCl (Cymbalta) 30 mg DAILY ORAL 08/25/17 09:00 09/24/17 08:59 09/05/17 08:05 Gabapentin (Neurontin) 300 mg THREE TIMES A DAY ORAL 08/25/17 09:00 09/24/17 08:59 09/05/17 12:57 Heparin Sodium (Porcine) (Heparin 5000 units/ml) 5,000 units EVERY 12 HOURS SUBQ 08/25/17 09:00 09/24/17 08:59 09/05/17 08:11 Hydromorphone HCl (Dilaudid) 1 mg Q3H PRN IVP Severe Pain (Pain Scale 7-10) 09/04/17 10:15 09/11/17 10:14 09/05/17 14:18 Ondansetron HCl (Zofran) 4 mg Q6H PRN IVP Nausea & Vomiting 08/25/17 08:15 09/24/17 08:14 09/04/17 05:23 Oxacillin Sodium 2 gm/Sodium Chloride 110 ml @ 220 mls/hr Q4HR IVPB 08/25/17 21:00 10/04/17 20:59 09/05/17 12:58 Polyethylene Glycol (Miralax) 17 gm DAILYPRN PRN ORAL Constipation 08/25/17 08:15 09/24/17 08:14 09/02/17 14:38 Sodium Chloride 1,000 ml @ 50 mls/hr Q20H IV 08/26/17 13:45 09/25/17 13:44 09/05/17 13:00 Steph Crowder M.D. Sep 05, 2017 17:19
[2017-09-05 20:00] VITALS: BP 125/68
[2017-09-05] MEDS: Dyna-Hex 2% Top Sol 2oz TOPIC SCH (20:41)
[2017-09-06] VITALS: BP 129/66
[2017-09-06] MEDS: Oxacillin 2 GM in NS 110 ML IVPB SCH ×6 (00:27→20:38)
[2017-09-06] MEDS: HYDROmorphone 1mg/ml Carpuject IVP PRN ×7 (03:01→22:08)
[2017-09-06 04:00] VITALS: BP 133/72
[2017-09-06 06:36] LABS: BASOPHILS % (AUTO) 0.9 % (0.0-2.0); EOSINOPHILS % (AUTO) 1.3 % (0.0-3.0); HEMATOCRIT 25.6 % (42.0-52.0); HEMOGLOBIN 8.5 G/DL (14.2-18.0); LYMPHOCYTES % (AUTO) 24.2 % (20.0-45.0); MEAN CORPUSCULAR VOLUME 85 FL (80-99); MONOCYTES % (AUTO) 6.6 % (1.0-10.0); PLATELET COUNT 228 K/UL (150-450); RED CELL DISTRIBUTION WIDTH 13.4 % (11.6-14.8); WHITE BLOOD COUNT 6.4 K/UL (4.8-10.8)
[2017-09-06 07:01] LABS: ALANINE AMINOTRANSFERASE 18 U/L (12-78); ALBUMIN 1.7 G/DL (3.4-5.0); ALBUMIN/GLOBULIN RATIO 0.4 (1.0-2.7); ALKALINE PHOSPHATASE 74 U/L (46-116); ANION GAP 6 mmol/L (5-15); ASPARTATE AMINO TRANSFERASE 18 U/L (15-37); BILIRUBIN,TOTAL 0.3 MG/DL (0.2-1.0); BLOOD UREA NITROGEN 5 mg/dL (7-18); CARBON DIOXIDE 28 MMOL/L (21-32); CHLORIDE 103 MMOL/L (98-107); CREATININE 0.5 MG/DL (0.55-1.30); PHOSPHORUS 3.5 MG/DL (2.5-4.9); POTASSIUM 3.4 MMOL/L (3.5-5.1); SODIUM 137 MMOL/L (136-145)
[2017-09-06 08:00] VITALS: BP 143/67
[2017-09-06] MEDS: DULoxetine 30mg cap ORAL SCH (09:16)
[2017-09-06] MEDS: Docusate 100mg cap ORAL SCH ×3 (09:16→17:30)
[2017-09-06] MEDS: Heparin 5000 units/ml inj SUBQ SCH ×2 (09:17→20:39)
--- NOTE | 2017-09-06 09:21 | General Surgery Progress Note ---
General Surgery-Progress Note Subjective Additional Comments no acute events. pending transfer Objective Last 24 Hour Vital Signs Date Time Temp Pulse Resp B/P (MAP) Pulse Ox O2 Delivery O2 Flow Rate FiO2 09/06/17 08:00 98.1 86 20 143/67 (92) 93 98.1 09/06/17 04:00 97.6 72 18 133/72 (92) 94 97.6 09/06/17 00:00 98.4 74 18 129/66 (87) 96 98.4 09/05/17 21:00 Room Air 09/05/17 20:35 88 20 Room Air 21 09/05/17 20:00 98.7 80 18 125/68 (87) 94 98.7 09/05/17 18:00 98.6 09/05/17 17:30 98.6 09/05/17 16:00 98.6 75 19 121/63 (82) 92 98.6 09/05/17 14:18 97.9 09/05/17 14:14 97.9 09/05/17 13:15 97.9 09/05/17 12:00 97.9 72 22 119/73 (88) 92 97.9 09/05/17 11:13 98.0 I&O Intake and Output 09/05/17 09/06/17 19:00 07:00 Intake Total 1080 ml 830.0 ml Output Total 1800 ml 1550 ml Balance -720 ml -720.0 ml Intake Oral 480 ml IV Total 600 ml 830.0 ml Output Urine Total 1800 ml 1550 ml # Bowel Movements 1 Wound: clean, dry Drains: none Cardiovascular: RSR Respiratory: clear Abdomen: soft, flat, non-tender, present bowel sounds Extremities: no cyanosis Laboratory Tests Test 09/06/17 06:00 White Blood Count 6.4 K/UL (4.8-10.8) Red Blood Count 3.00 M/UL (4.70-6.10) L Hemoglobin 8.5 G/DL (14.2-18.0) L Hematocrit 25.6 % (42.0-52.0) L Mean Corpuscular Volume 85 FL (80-99) Mean Corpuscular Hemoglobin 28.2 PG (27.0-31.0) Mean Corpuscular Hemoglobin Concent 33.0 G/DL (32.0-36.0) Red Cell Distribution Width 13.4 % (11.6-14.8) Platelet Count 228 K/UL (150-450) Mean Platelet Volume 5.7 FL (6.5-10.1) L Neutrophils (%) (Auto) 67.0 % (45.0-75.0) Lymphocytes (%) (Auto) 24.2 % (20.0-45.0) Monocytes (%) (Auto) 6.6 % (1.0-10.0) Eosinophils (%) (Auto) 1.3 % (0.0-3.0) Basophils (%) (Auto) 0.9 % (0.0-2.0) Erythrocyte Sedimentation Rate 126 MM/HR (0-20) H Sodium Level 137 MMOL/L (136-145) Potassium Level 3.4 MMOL/L (3.5-5.1) L Chloride Level 103 MMOL/L (98-107) Carbon Dioxide Level 28 MMOL/L (21-32) Anion Gap 6 mmol/L (5-15) Blood Urea Nitrogen 5 mg/dL (7-18) L Creatinine 0.5 MG/DL (0.55-1.30) L Estimat Glomerular Filtration Rate > 60 mL/min (>60) Glucose Level 91 MG/DL (74-106) Calcium Level 8.0 MG/DL (8.5-10.1) L Phosphorus Level 3.5 MG/DL (2.5-4.9) Magnesium Level 1.6 MG/DL (1.8-2.4) L Total Bilirubin 0.3 MG/DL (0.2-1.0) Aspartate Amino Transf (AST/SGOT) 18 U/L (15-37) Alanine Aminotransferase (ALT/SGPT) 18 U/L (12-78) Alkaline Phosphatase 74 U/L (46-116) C-Reactive Protein, Quantitative 4.2 mg/dL (0.00-0.90) H Total Protein 6.3 G/DL (6.4-8.2) L Albumin 1.7 G/DL (3.4-5.0) L Globulin 4.6 g/dL Albumin/Globulin Ratio 0.4 (1.0-2.7) L Plan Problems: (1) Empyema Assessment & Plan: s/p VATS. since chest tube removed. wounds healing. no signs of surgical site infection. does have pain on left ribs and likely healing from surgery patient signed out AMA last hospitalization prior to completion of therapy. Repeat chest CT now with larger right sided effusion possible empyema. MRI spine reviewed. spine abscess recommend tap of right side for cultures / eval -patient declined and refused thoracentesis needs spine surgery eval. possibly may need transfer to high level of care IV Abx will follow with Brian Milligan Sep 06, 2017 09:21
--- NOTE | 2017-09-06 10:30 | Progress Note ---
DATE: 09/05/2017 PSYCHIATRIC PROGRESS NOTE SUBJECTIVE: 00:04 mood labile, , and depressed. MENTAL STATUS EXAMINATION: This is a 57-year-old male. Appearance is disheveled. Attitude irritable and agitated. Affect restricted. Intellect poor. Mood, depressed and anxious. Motor activity, psychomotor agitation. Attention span is poor. Orientation x2. Speech is pressured. Thought process, disorganized and illogical. Thought content, auditory hallucinations and paranoid delusions. Insight and judgment is poor. DIAGNOSIS: Major depressive disorder, mild recurrent with psychotic features. PLAN: Continue titrating up on his medications to stabilize the mood, reduce depression and anxiety. Provide 18-20 minutes of cognitive behavioral therapy 00:42 negative thoughts more positive thoughts. Seen and assessed in his room. Chart reviewed and discussed with staff. Gudelai Villa M.D. DR: RUTH ANN JOB#: [id number] CC:
[2017-09-06 12:00] VITALS: BP 144/77
--- NOTE | 2017-09-06 13:35 | General Progress Note ---
Assessment/Plan Problem List: (1) Chronic pain ICD Codes: G89.29 - Other chronic pain SNOMED: 15888326 (2) Hypokalemia ICD Codes: E87.6 - Hypokalemia SNOMED: 50060044 (3) HIV (human immunodeficiency virus infection) ICD Codes: B20 - Human immunodeficiency virus [HIV] disease SNOMED: 88865654 (4) Sepsis ICD Codes: A41.9 - Sepsis, unspecified organism SNOMED: 18786711 Qualifiers: Qualified Codes: A41.9 - Sepsis, unspecified organism (5) Empyema ICD Codes: J86.9 - Pyothorax without fistula SNOMED: 021414248 (6) Drug abuse and dependence ICD Codes: F19.20 - Other psychoactive substance dependence, uncomplicated SNOMED: 2935946 (7) Epidural abscess ICD Codes: G06.2 - Extradural and subdural abscess, unspecified SNOMED: 31147469 Status: stable, progressing Assessment/Plan ot pt diet abx neph f/u cbc bmp am higher level care prn Subjective Constitutional: Reports: weakness Allergies: Coded Allergies: No Known Allergies (Unverified , 08/06/17) All Systems: reviewed and negative except above Subjective o2nc sleepy calm Objective Last 24 Hour Vital Signs Date Time Temp Pulse Resp B/P (MAP) Pulse Ox O2 Delivery O2 Flow Rate FiO2 09/06/17 12:00 97.7 77 20 144/77 (99) 95 97.7 09/06/17 08:45 Room Air 09/06/17 08:00 98.1 86 20 143/67 (92) 93 98.1 09/06/17 04:00 97.6 72 18 133/72 (92) 94 97.6 09/06/17 00:00 98.4 74 18 129/66 (87) 96 98.4 09/05/17 21:00 Room Air 09/05/17 20:35 88 20 Room Air 21 09/05/17 20:00 98.7 80 18 125/68 (87) 94 98.7 09/05/17 18:00 98.6 09/05/17 17:30 98.6 09/05/17 16:00 98.6 75 19 121/63 (82) 92 98.6 09/05/17 14:18 97.9 09/05/17 14:14 97.9 Intake and Output 09/05/17 09/06/17 19:00 07:00 Intake Total 1080 ml 830.0 ml Output Total 1800 ml 1550 ml Balance -720 ml -720.0 ml Intake Oral 480 ml IV Total 600 ml 830.0 ml Output Urine Total 1800 ml 1550 ml # Bowel Movements 1 Laboratory Tests 09/06/17 06:00: White Blood Count 6.4, Red Blood Count 3.00L, Hemoglobin 8.5L, Hematocrit 25.6L , Mean Corpuscular Volume 85, Mean Corpuscular Hemoglobin 28.2, Mean Corpuscular Hemoglobin Concent 33.0, Red Cell Distribution Width 13.4, Platelet Count 228, Mean Platelet Volume 5.7L, Neutrophils (%) (Auto) 67.0, Lymphocytes ( %) (Auto) 24.2, Monocytes (%) (Auto) 6.6, Eosinophils (%) (Auto) 1.3, Basophils (%) (Auto) 0.9, Erythrocyte Sedimentation Rate 126H, Sodium Level 137, Potassium Level 3.4L, Chloride Level 103, Carbon Dioxide Level 28, Anion Gap 6, Blood Urea Nitrogen 5L, Creatinine 0.5L, Estimat Glomerular Filtration Rate > 60 , Glucose Level 91, Calcium Level 8.0L, Phosphorus Level 3.5, Magnesium Level 1.6L, Total Bilirubin 0.3, Aspartate Amino Transf (AST/SGOT) 18, Alanine Aminotransferase (ALT/SGPT) 18, Alkaline Phosphatase 74, C-Reactive Protein, Quantitative 4.2H, Total Protein 6.3L, Albumin 1.7L, Globulin 4.6, Albumin/ Globulin Ratio 0.4L Height (Feet): 5 Height (Inches): 7.00 Weight (Pounds): 166 General Appearance: lethargic EENT: normal ENT inspection Neck: normal alignment Cardiovascular: normal peripheral pulses, normal rate, regular rhythm Respiratory/Chest: chest wall non-tender, lungs clear, normal breath sounds Abdomen: normal bowel sounds, non tender, soft Extremities: normal inspection Edema: no edema noted Arm (L), no edema noted Arm (R), no edema noted Leg (L), no edema noted Leg (R), no edema noted Pedal (L), no edema noted Pedal (R), no edema noted Generalized Neurologic: motor weakness Skin: normal pigmentation, warm/dry Chemo Dietrich DO Sep 06, 2017 13:34
--- NOTE | 2017-09-06 13:57 | Pulmonology Progress Note ---
Assessment/Plan Problems: (1) Epidural abscess (2) Sepsis (3) Osteomyelitis (4) COPD (chronic obstructive pulmonary disease) (5) Hypoalbuminemia (6) Hepatitis C (7) HIV (human immunodeficiency virus infection) (8) Pleural effusion Assessment/Plan pain management no new complains spine surgery evaluation can not be done at this facility iv abx, ID note appreciated check electrolytes symptomatic treatment transfer to higher level of care Subjective ROS Limited/Unobtainable: No Constitutional: Reports: no symptoms HEENT: Repors: no symptoms Allergies: Coded Allergies: No Known Allergies (Unverified , 08/06/17) Objective Last 24 Hour Vital Signs Date Time Temp Pulse Resp B/P (MAP) Pulse Ox O2 Delivery O2 Flow Rate FiO2 09/06/17 12:00 97.7 77 20 144/77 (99) 95 97.7 09/06/17 08:45 Room Air 09/06/17 08:00 98.1 86 20 143/67 (92) 93 98.1 09/06/17 04:00 97.6 72 18 133/72 (92) 94 97.6 09/06/17 00:00 98.4 74 18 129/66 (87) 96 98.4 09/05/17 21:00 Room Air 09/05/17 20:35 88 20 Room Air 21 09/05/17 20:00 98.7 80 18 125/68 (87) 94 98.7 09/05/17 18:00 98.6 09/05/17 17:30 98.6 09/05/17 16:00 98.6 75 19 121/63 (82) 92 98.6 09/05/17 14:18 97.9 09/05/17 14:14 97.9 Intake and Output 09/05/17 09/06/17 19:00 07:00 Intake Total 1080 ml 830.0 ml Output Total 1800 ml 1550 ml Balance -720 ml -720.0 ml Intake Oral 480 ml IV Total 600 ml 830.0 ml Output Urine Total 1800 ml 1550 ml # Bowel Movements 1 General Appearance: WD/WN HEENT: normocephalic, atraumatic Respiratory/Chest: chest wall non-tender, lungs clear Abdomen: normal bowel sounds, soft, non tender Genitourinary: normal external genitalia Extremities: no cyanosis Neurologic/Psychiatric: no motor/sensory deficits Lymphatic: no neck adenopathy Laboratory Tests 09/06/17 06:00: White Blood Count 6.4, Red Blood Count 3.00L, Hemoglobin 8.5L, Hematocrit 25.6L , Mean Corpuscular Volume 85, Mean Corpuscular Hemoglobin 28.2, Mean Corpuscular Hemoglobin Concent 33.0, Red Cell Distribution Width 13.4, Platelet Count 228, Mean Platelet Volume 5.7L, Neutrophils (%) (Auto) 67.0, Lymphocytes ( %) (Auto) 24.2, Monocytes (%) (Auto) 6.6, Eosinophils (%) (Auto) 1.3, Basophils (%) (Auto) 0.9, Erythrocyte Sedimentation Rate 126H, Sodium Level 137, Potassium Level 3.4L, Chloride Level 103, Carbon Dioxide Level 28, Anion Gap 6, Blood Urea Nitrogen 5L, Creatinine 0.5L, Estimat Glomerular Filtration Rate > 60 , Glucose Level 91, Calcium Level 8.0L, Phosphorus Level 3.5, Magnesium Level 1.6L, Total Bilirubin 0.3, Aspartate Amino Transf (AST/SGOT) 18, Alanine Aminotransferase (ALT/SGPT) 18, Alkaline Phosphatase 74, C-Reactive Protein, Quantitative 4.2H, Total Protein 6.3L, Albumin 1.7L, Globulin 4.6, Albumin/ Globulin Ratio 0.4L Current Medications Medications (Trade) Dose Ordered Sig/Veronica Route PRN Reason Start Time Stop Time Status Last Admin Dose Admin Acetaminophen (Tylenol) 650 mg Q4H PRN ORAL FEVER 08/25/17 08:15 09/24/17 08:14 08/27/17 13:06 Acetaminophen/ Hydrocodone Bitart ([place] 10/325) 1 tab Q4H PRN ORAL Moderate Pain (Pain Scale 4-6) 09/04/17 08:00 09/11/17 07:59 09/04/17 09:10 Acetaminophen/ Hydrocodone Bitart ([place] 10/325) 1 tab Q4H PRN ORAL For breakthrough pain 09/05/17 11:00 09/12/17 10:59 09/05/17 22:08 Chlorhexidine Gluconate ([place]ishi-Hex 2%) 1 applic DAILY@1999 TOPIC 08/29/17 20:00 09/28/17 19:59 09/05/17 20:41 Dextrose (Dextrose 50%) 25 ml STAT PRN IV Hypoglycemia 08/25/17 08:15 09/24/17 08:14 Dextrose (Dextrose 50%) 50 ml STAT PRN IV Hypoglycemia 08/25/17 08:30 09/24/17 08:29 Docusate Sodium (Colace) 100 mg THREE TIMES A DAY ORAL 08/30/17 13:00 09/29/17 12:59 09/06/17 12:30 Duloxetine HCl (Cymbalta) 30 mg DAILY ORAL 08/25/17 09:00 09/24/17 08:59 09/06/17 09:16 Gabapentin (Neurontin) 300 mg THREE TIMES A DAY ORAL 08/25/17 09:00 09/24/17 08:59 09/06/17 12:30 Heparin Sodium (Porcine) (Heparin 5000 units/ml) 5,000 units EVERY 12 HOURS SUBQ 08/25/17 09:00 09/24/17 08:59 09/06/17 09:17 Hydromorphone HCl (Dilaudid) 1 mg Q3H PRN IVP Severe Pain (Pain Scale 7-10) 09/04/17 10:15 09/11/17 10:14 09/06/17 12:30 Ondansetron HCl (Zofran) 4 mg Q6H PRN IVP Nausea & Vomiting 08/25/17 08:15 09/24/17 08:14 09/04/17 05:23 Oxacillin Sodium 2 gm/Sodium Chloride 110 ml @ 220 mls/hr Q4HR IVPB 08/25/17 21:00 10/04/17 20:59 09/06/17 12:30 Polyethylene Glycol (Miralax) 17 gm DAILYPRN PRN ORAL Constipation 08/25/17 08:15 09/24/17 08:14 09/02/17 14:38 Sodium Chloride 1,000 ml @ 50 mls/hr Q20H IV 08/26/17 13:45 09/25/17 13:44 09/06/17 09:39 Sally Cox MD Sep 06, 2017 13:57
[2017-09-06 16:00] VITALS: BP 146/82
--- NOTE | 2017-09-06 16:07 | General Progress Note ---
Assessment/Plan Assessment/Plan (1) Left sided wall chest pain (2) Lung effusion possible empyema (3) S/p VATS (4) Intercostal Neuropathy (5) Lumbar Spondylosis (6) T9-10 discitis/osteomyelitis with epidural abscess (7) Cervical spinal stenosis We will continue Dilaudid. We will discontinue the [place] and start Morphine ER 15mg PO 1 tab Q8H ATC hold for oversedation. Recommend Neurosurgical consultation as per data entry assistant. D/w Dr. Stevens and he concurred. Subjective Date patient seen: Sep 06, 2017 Time patient seen: 03:00 - pm Allergies: Coded Allergies: No Known Allergies (Unverified , 08/06/17) Subjective REVIEW OF SYSTEMS: Denies rash, fever, chills, sweating, dizziness, drowsiness, blurred vision, sore throat, or change in weight. No nausea, vomiting, diarrhea, or blood in the stool or urine. He is complaining of left chest wall pain and back pain. SUBJECTIVE: Patient has continued pain with minimal relief on the Dialudid and [place]. I d/w him about discontinuing the [place] and starting a long acting medication such as Morphine ER. He understands. Objective Last 24 Hour Vital Signs Date Time Temp Pulse Resp B/P (MAP) Pulse Ox O2 Delivery O2 Flow Rate FiO2 09/06/17 12:00 97.7 77 20 144/77 (99) 95 97.7 09/06/17 08:45 Room Air 09/06/17 08:00 98.1 86 20 143/67 (92) 93 98.1 09/06/17 04:00 97.6 72 18 133/72 (92) 94 97.6 09/06/17 00:00 98.4 74 18 129/66 (87) 96 98.4 09/05/17 21:00 Room Air 09/05/17 20:35 88 20 Room Air 21 09/05/17 20:00 98.7 80 18 125/68 (87) 94 98.7 09/05/17 18:00 98.6 09/05/17 17:30 98.6 Intake and Output 09/05/17 09/06/17 19:00 07:00 Intake Total 1080 ml 830.0 ml Output Total 1800 ml 1550 ml Balance -720 ml -720.0 ml Intake Oral 480 ml IV Total 600 ml 830.0 ml Output Urine Total 1800 ml 1550 ml # Bowel Movements 1 Laboratory Tests 09/06/17 06:00: White Blood Count 6.4, Red Blood Count 3.00L, Hemoglobin 8.5L, Hematocrit 25.6L , Mean Corpuscular Volume 85, Mean Corpuscular Hemoglobin 28.2, Mean Corpuscular Hemoglobin Concent 33.0, Red Cell Distribution Width 13.4, Platelet Count 228, Mean Platelet Volume 5.7L, Neutrophils (%) (Auto) 67.0, Lymphocytes ( %) (Auto) 24.2, Monocytes (%) (Auto) 6.6, Eosinophils (%) (Auto) 1.3, Basophils (%) (Auto) 0.9, Erythrocyte Sedimentation Rate 126H, Sodium Level 137, Potassium Level 3.4L, Chloride Level 103, Carbon Dioxide Level 28, Anion Gap 6, Blood Urea Nitrogen 5L, Creatinine 0.5L, Estimat Glomerular Filtration Rate > 60 , Glucose Level 91, Calcium Level 8.0L, Phosphorus Level 3.5, Magnesium Level 1.6L, Total Bilirubin 0.3, Aspartate Amino Transf (AST/SGOT) 18, Alanine Aminotransferase (ALT/SGPT) 18, Alkaline Phosphatase 74, C-Reactive Protein, Quantitative 4.2H, Total Protein 6.3L, Albumin 1.7L, Globulin 4.6, Albumin/ Globulin Ratio 0.4L Height (Feet): 5 Height (Inches): 7.00 Weight (Pounds): 166 Objective GENERAL: Alert, awake, and oriented. LUNGS: Decreased breath sounds bilaterally. HEART: S1 S2 Regular. ABDOMEN: Benign. EXTREMITIES: No cyanosis. No clubbing. No edema. NEURO: No changes. Mark Rausch Sep 06, 2017 16:07
[2017-09-06] MEDS ORDERED: Naloxone 0.4mg/ml Inj IVP PRN (16:08)
[2017-09-06] MEDS ORDERED: Lactulose 20gm/30ml UDC ORAL PRN (16:15)
[2017-09-06] MEDS: MS Contin 15mg tab ORAL SCH (16:17)
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
--- NOTE | 2017-09-06 18:00 | Infectious Diseases Prog Note ---
Assessment/Plan Assessment/Plan ASSESSMENT: The patient is a 56-year-old male with multiple medical problems, who has recent empyema/bacteremia due to methicillin-sensitive Staphylococcus aureus ( Signed off AMA on 08/18/17 and had incomplete treatment; only 10 day of 42) -CT chest 08/25: Increased size of loculated right pleural effusion. Small air in the pleural space. Smaller residual left loculated pleural fluid with small air. Small to moderate fluid collection now in the left fissure. Bilateral lower lobe atelectasis/consolidations and air space disease,similar. -s/p VATS, partial pleurectomy, decortication 08/14 -OR findings : Bronchoscopy: A minimal amount of mucopurulent secretion was lavaged and suctioned clear. No endobronchial lesions. -VATS: There were noted to be numerous adhesions tethering along to the surrounding chest wall. The disease appears to be localized in the left lower lobe as the left upper lobe was virtually spared. - OR cx MSSA -CT chest 08/10: Left pleural effusion. Scalloped appearance suggests loculation. Presence of gas bubbles suggest infection by gas-forming organism. Gas bubbles appear trapped within the fluid rather than floating nondependently , indicating the fluid may be highly viscous. - -08/07 Bcx 4/4 MSSA; 08/08 4/4+; 08/10 2/4 +; 08/11 2/4+; 08/13 Neg x4; Bcx 08/27 Negx4; 08/30 NTD -08/28 ESR 126 <86 (08/10), CRP 12 < 27 (08/09) Mild leukocytosis, recurrent- resolved Low grade fever, intermittent; resolved Probable endocarditis (NURA was not done). Thoracic Discitis/Osteomyelitis and epidural abscess T7-T10- causing spinal cord compression; Possible Cervical spodylodiscitis w/ cord compression > Quadriparesis -MRI Cervical spine: Disc narrowing at C5-6. Marrow edema of the adjacent C5 and C6 vertebral bodies is noted. This is most likely due to Modic type I degenerative change and reactive marrow edema, particularly given the absence of edema within the disc. However, the possibility of spondylodiscitis as etiology of this finding, particularly in view of recent diagnosis of thoracic epidural abscess and in view of the slight degree of surrounding soft tissue edema, should also be considered. Severe spinal stenosis with cord compression at multiple levels extending from C3-4 through C5-6. Minimum AP dimension of the spinal canal 5 mm. Due to image degradation, it is uncertain as to whether there is significant cord edema/myelomalacia present. Multilevel severe neural foraminal stenosis as detailed level by level basis above -MRI Thoracic Spine: Suspicion of cord compression T7-T10 secondary to a posterior epidural abscess versus mass. Abscess favored given suspicion of spondylodiscitis at T9-10 as well as bilateral pleural effusions and pneumonia ( recent diagnosed on CT chest). Significantly limited study due to motion. -MRI Lumbar spine: Evidence of T9-10 discitis/osteomyelitis. Suspect related to previously described adjacent bilateral pleural empyemas. Evidence of epidural abscess measuring at least 8 x 11 mm in diameter, and extending at least 5 cm craniocaudad, at and above the T9 level. This results in significant spinal stenosis. Note that it is incompletely included in the imaging volume, and the cephalad extent above mid T7 is unclear. Recommend thoracic MRI for further evaluation. As mentioned above, evidence of bilateral empyemas, with bilateral loculated pleural fluid collections and extensive enhancement and edema of the adjacent soft tissue. Extensive multilevel degenerative changes elsewhere, as detailed on a level by level basis above Polysubstance abuse- refers last IVDA was ~7 yrs ago -UDS (prior admission) +THC, cocaine and amphetamines HIV - non progressor- per patient, never on Tx and CD4 >500 and UD VL -07/2017 CD4 510 (39.2%), VL ND Hep C s/p tx (20 years ago) with sustained virologic response COPD/asthma tobacco abuse (stopped smoking 3d [employer]) PLAN: -. The patient is on oxacillin day # 13/42-56 (the patient received 11 days of treatment prior to discharge). -monitor LFTs -/ SP IV Vanco and Cefepme #2 -/ SP IV Oxacillin #9 -08/10 SP Ceftriaxone d# 5 and IV Vancomycin #3 -08/06 SP Cefepime x1, Levaquin x1 -. Monitor CBC/CMP, temperatures -. Monitor cultures (Bcx) -NEEDS EMERGENT transfer to tertiary hospital for neurosurgical evaluation for epidural abscess and thoracic discitis and OM as it causing spinal cord compression -awaiting transfer: having too much difficulty finding an accepting facility -Needs also further chest drainage; currently refusing -will also need NURA to eval for endocarditis/valvular abscess ( pt refused ) -f/u repeat Bcx x2 Discussed with RN Subjective Allergies: Coded Allergies: No Known Allergies (Unverified , 08/06/17) Subjective Bcx Neg awaiting tranfer to higher level of care no leukocytosis afebrile Objective Vital Signs Last 24 Hour Vital Signs Date Time Temp Pulse Resp B/P (MAP) Pulse Ox O2 Delivery O2 Flow Rate FiO2 09/06/17 16:00 97.0 81 20 146/82 (103) 95 97.0 09/06/17 12:00 97.7 77 20 144/77 (99) 95 97.7 09/06/17 08:45 Room Air 09/06/17 08:00 98.1 86 20 143/67 (92) 93 98.1 09/06/17 04:00 97.6 72 18 133/72 (92) 94 97.6 09/06/17 00:00 98.4 74 18 129/66 (87) 96 98.4 09/05/17 21:00 Room Air 09/05/17 20:35 88 20 Room Air 21 09/05/17 20:00 98.7 80 18 125/68 (87) 94 98.7 09/05/17 18:00 98.6 Height (Feet): 5 Height (Inches): 7.00 Weight (Pounds): 166 Objective HEENT: No pale conjunctivae. No icterus. NECK: No lymphadenopathy. CHEST: Clear. Incision site is healing. HEART: S1 and S2. ABDOMEN: Soft and nontender. BACK: The patient has tenderness in the lower thoracic and lumbar area. EXTREMITIES: No cyanosis. NEUROLOGIC: Awake and alert. +Babinski, brisk reflexes, LE>UE weakness. no sensory deficits Laboratory Tests Test 09/06/17 06:00 White Blood Count 6.4 K/UL (4.8-10.8) Red Blood Count 3.00 M/UL (4.70-6.10) L Hemoglobin 8.5 G/DL (14.2-18.0) L Hematocrit 25.6 % (42.0-52.0) L Mean Corpuscular Volume 85 FL (80-99) Mean Corpuscular Hemoglobin 28.2 PG (27.0-31.0) Mean Corpuscular Hemoglobin Concent 33.0 G/DL (32.0-36.0) Red Cell Distribution Width 13.4 % (11.6-14.8) Platelet Count 228 K/UL (150-450) Mean Platelet Volume 5.7 FL (6.5-10.1) L Neutrophils (%) (Auto) 67.0 % (45.0-75.0) Lymphocytes (%) (Auto) 24.2 % (20.0-45.0) Monocytes (%) (Auto) 6.6 % (1.0-10.0) Eosinophils (%) (Auto) 1.3 % (0.0-3.0) Basophils (%) (Auto) 0.9 % (0.0-2.0) Erythrocyte Sedimentation Rate 126 MM/HR (0-20) H Sodium Level 137 MMOL/L (136-145) Potassium Level 3.4 MMOL/L (3.5-5.1) L Chloride Level 103 MMOL/L (98-107) Carbon Dioxide Level 28 MMOL/L (21-32) Anion Gap 6 mmol/L (5-15) Blood Urea Nitrogen 5 mg/dL (7-18) L Creatinine 0.5 MG/DL (0.55-1.30) L Estimat Glomerular Filtration Rate > 60 mL/min (>60) Glucose Level 91 MG/DL (74-106) Calcium Level 8.0 MG/DL (8.5-10.1) L Phosphorus Level 3.5 MG/DL (2.5-4.9) Magnesium Level 1.6 MG/DL (1.8-2.4) L Total Bilirubin 0.3 MG/DL (0.2-1.0) Aspartate Amino Transf (AST/SGOT) 18 U/L (15-37) Alanine Aminotransferase (ALT/SGPT) 18 U/L (12-78) Alkaline Phosphatase 74 U/L (46-116) C-Reactive Protein, Quantitative 4.2 mg/dL (0.00-0.90) H Total Protein 6.3 G/DL (6.4-8.2) L Albumin 1.7 G/DL (3.4-5.0) L Globulin 4.6 g/dL Albumin/Globulin Ratio 0.4 (1.0-2.7) L Current Medications Medications (Trade) Dose Ordered Sig/Veronica Route PRN Reason Start Time Stop Time Status Last Admin Dose Admin Acetaminophen (Tylenol) 650 mg Q4H PRN ORAL FEVER 08/25/17 08:15 09/24/17 08:14 08/27/17 13:06 Chlorhexidine Gluconate (Nishi-Hex 2%) 1 applic DAILY@2000 TOPIC 08/29/17 20:00 09/28/17 19:59 09/05/17 20:41 Dextrose (Dextrose 50%) 25 ml STAT PRN IV Hypoglycemia 08/25/17 08:15 09/24/17 08:14 Dextrose (Dextrose 50%) 50 ml STAT PRN IV Hypoglycemia 08/25/17 08:30 09/24/17 08:29 Docusate Sodium (Colace) 100 mg THREE TIMES A DAY ORAL 08/30/17 13:00 09/29/17 12:59 09/06/17 17:30 Duloxetine HCl (Cymbalta) 30 mg DAILY ORAL 08/25/17 09:00 09/24/17 08:59 09/06/17 09:16 Gabapentin (Neurontin) 300 mg THREE TIMES A DAY ORAL 08/25/17 09:00 09/24/17 08:59 09/06/17 17:30 Heparin Sodium (Porcine) (Heparin 5000 units/ml) 5,000 units EVERY 12 HOURS SUBQ 08/25/17 09:00 09/24/17 08:59 09/06/17 09:17 Hydromorphone HCl (Dilaudid) 1 mg Q3H PRN IVP Severe Pain (Pain Scale 7-10) 09/04/17 10:15 09/11/17 10:14 09/06/17 15:53 Lactulose (Cephulac) 30 gm QIDPRN PRN ORAL constipation 09/06/17 16:15 10/06/17 16:14 Morphine Sulfate (MS Contin) 15 mg Q8H ORAL 09/06/17 16:00 09/13/17 15:59 09/06/17 16:17 Naloxone HCl (Narcan) 0.2 mg Q2H PRN IVP respritory depression 09/06/17 16:08 10/06/17 16:07 Ondansetron HCl (Zofran) 4 mg Q6H PRN IVP Nausea & Vomiting 08/25/17 08:15 09/24/17 08:14 09/04/17 05:23 Oxacillin Sodium 2 gm/Sodium Chloride 110 ml @ 220 mls/hr Q4HR IVPB 08/25/17 21:00 10/04/17 20:59 09/06/17 17:30 Polyethylene Glycol (Miralax) 17 gm DAILYPRN PRN ORAL Constipation 08/25/17 08:15 09/24/17 08:14 09/02/17 14:38 Sodium Chloride 1,000 ml @ 50 mls/hr Q20H IV 08/26/17 13:45 09/25/17 13:44 09/06/17 09:39 Steph Crowder M.D. Sep 06, 2017 18:00
[2017-09-06 20:00] VITALS: BP 129/69
[2017-09-06] MEDS: Dyna-Hex 2% Top Sol 2oz TOPIC SCH (20:38)
--- NOTE | 2017-09-06 23:16 | Cardiology Progress Note ---
Assessment/Plan Assessment/Plan 1, Bacteremia, refused NURA, continue ABx therapy. 2D echo is technically difficult, no vegetations is identified, however the sensitivity of this test is low. 2. Transient diskitis. 3. Epidural abscess 4. COPD 5. HCV infection 6. HIV disease Subjective Subjective No cardiac events. Objective Last 24 Hour Vital Signs Date Time Temp Pulse Resp B/P (MAP) Pulse Ox O2 Delivery O2 Flow Rate FiO2 09/06/17 16:00 97.0 81 20 146/82 (103) 95 97.0 09/06/17 12:00 97.7 77 20 144/77 (99) 95 97.7 09/06/17 08:45 Room Air 09/06/17 08:00 98.1 86 20 143/67 (92) 93 98.1 09/06/17 04:00 97.6 72 18 133/72 (92) 94 97.6 09/06/17 00:00 98.4 74 18 129/66 (87) 96 98.4 Intake and Output 09/05/17 09/06/17 19:00 07:00 Intake Total 1080 ml 830.0 ml Output Total 1800 ml 1550 ml Balance -720 ml -720.0 ml Intake Oral 480 ml IV Total 600 ml 830.0 ml Output Urine Total 1800 ml 1550 ml # Bowel Movements 1 2D Echo: LVEF 55-60%, Grade I LVDD Laboratory Tests Test 09/06/17 06:00 White Blood Count 6.4 K/UL (4.8-10.8) Red Blood Count 3.00 M/UL (4.70-6.10) L Hemoglobin 8.5 G/DL (14.2-18.0) L Hematocrit 25.6 % (42.0-52.0) L Mean Corpuscular Volume 85 FL (80-99) Mean Corpuscular Hemoglobin 28.2 PG (27.0-31.0) Mean Corpuscular Hemoglobin Concent 33.0 G/DL (32.0-36.0) Red Cell Distribution Width 13.4 % (11.6-14.8) Platelet Count 228 K/UL (150-450) Mean Platelet Volume 5.7 FL (6.5-10.1) L Neutrophils (%) (Auto) 67.0 % (45.0-75.0) Lymphocytes (%) (Auto) 24.2 % (20.0-45.0) Monocytes (%) (Auto) 6.6 % (1.0-10.0) Eosinophils (%) (Auto) 1.3 % (0.0-3.0) Basophils (%) (Auto) 0.9 % (0.0-2.0) Erythrocyte Sedimentation Rate 126 MM/HR (0-20) H Sodium Level 137 MMOL/L (136-145) Potassium Level 3.4 MMOL/L (3.5-5.1) L Chloride Level 103 MMOL/L (98-107) Carbon Dioxide Level 28 MMOL/L (21-32) Anion Gap 6 mmol/L (5-15) Blood Urea Nitrogen 5 mg/dL (7-18) L Creatinine 0.5 MG/DL (0.55-1.30) L Estimat Glomerular Filtration Rate > 60 mL/min (>60) Glucose Level 91 MG/DL (74-106) Calcium Level 8.0 MG/DL (8.5-10.1) L Phosphorus Level 3.5 MG/DL (2.5-4.9) Magnesium Level 1.6 MG/DL (1.8-2.4) L Total Bilirubin 0.3 MG/DL (0.2-1.0) Aspartate Amino Transf (AST/SGOT) 18 U/L (15-37) Alanine Aminotransferase (ALT/SGPT) 18 U/L (12-78) Alkaline Phosphatase 74 U/L (46-116) C-Reactive Protein, Quantitative 4.2 mg/dL (0.00-0.90) H Total Protein 6.3 G/DL (6.4-8.2) L Albumin 1.7 G/DL (3.4-5.0) L Globulin 4.6 g/dL Albumin/Globulin Ratio 0.4 (1.0-2.7) L Objective HEENT: Normocephalic, atraumatic, PERRLA, EOMI, No pale conjunctivae. No icterus. NECK: No JVD, no carotid bruit. CHEST: Normal breath sounds HEART: Normal S1 and S2, no murmurs, gallops or rubs. ABDOMEN: Soft and nontender, no hepatosplenomegaly, + BS. BACK: The patient has tenderness in the lower thoracic and lumbar area. EXTREMITIES: No edema , clubbing or cyanosis. Omid Tellez MD Sep 06, 2017 23:16
[2017-09-07] VITALS: BP 121/80
[2017-09-07] MEDS: MS Contin 15mg tab ORAL SCH ×3 (00:15→17:28)
[2017-09-07] MEDS: Oxacillin 2 GM in NS 110 ML IVPB SCH ×6 (01:13→20:50)
[2017-09-07] MEDS: HYDROmorphone 1mg/ml Carpuject IVP PRN ×7 (01:14→22:19)
[2017-09-07 04:00] VITALS: BP 137/67
[2017-09-07 07:01] LABS: ANION GAP 5 mmol/L (5-15); BLOOD UREA NITROGEN 6 mg/dL (7-18); CALCIUM 8.2 MG/DL (8.5-10.1); CARBON DIOXIDE 28 MMOL/L (21-32); CHLORIDE 102 MMOL/L (98-107); CREATININE 0.5 MG/DL (0.55-1.30); POTASSIUM 3.8 MMOL/L (3.5-5.1); SODIUM 135 MMOL/L (136-145)
[2017-09-07 07:03] LABS: BASOPHILS % (AUTO) 0.6 % (0.0-2.0); EOSINOPHILS % (AUTO) 1.9 % (0.0-3.0); HEMATOCRIT 27.1 % (42.0-52.0); HEMOGLOBIN 8.9 G/DL (14.2-18.0); LYMPHOCYTES % (AUTO) 24.9 % (20.0-45.0); MEAN CORPUSCULAR VOLUME 85 FL (80-99); NEUTROPHILS % (AUTO) 65.5 % (45.0-75.0); PLATELET COUNT 220 K/UL (150-450); RED BLOOD COUNT 3.18 M/UL (4.70-6.10)
[2017-09-07 08:00] VITALS: BP 125/71
[2017-09-07] MEDS: DULoxetine 30mg cap ORAL SCH (08:24)
[2017-09-07] MEDS: Docusate 100mg cap ORAL SCH ×3 (08:24→17:28)
[2017-09-07] MEDS: Heparin 5000 units/ml inj SUBQ SCH ×2 (08:26→20:51)
--- NOTE | 2017-09-07 10:15 | Consultation ---
DATE OF CONSULTATION: 09/07/2017 CONSULTING PHYSICIAN: Gudelia Villa M.D. HISTORY OF PRESENT ILLNESS: This is a 57-year-old male patient who has sepsis and empyema. He is confused and disorganized. His mood is labile. He has got are clear but still because of his sepsis and empyema cognition has declined below baseline. He still has increased anxiety and depression. That is why the daily psychiatric consultation was requested for this patient. MENTAL STATUS EXAMINATION: This is a 57-year-old male patient. Appearance is disheveled. Attitude is irritable and agitated. Affect is guarded and restricted. Intellect poor. Mood is depressed and anxious. Motor activity, psychomotor agitation. Attention span is poor. Orientation x2. Speech is pressured. Thought process, disorganized and illogical. Thought content, denies auditory or visual hallucinations or delusions. Insight and judgment is poor. DIAGNOSIS: Major depressive disorder, mild, recurrent, without psychotic features. PLAN: Treat him with Cymbalta 30 mg daily and Neurontin 300 mg three times a day. Provide 18 to 20 minutes of cognitive behavior therapy to identify a lot of negative thoughts and help him to convert them to more positive thoughts. Chart reviewed and discussed with staff. Seen and assessed at bedside. 18 to 20 minutes of cognitive behavioral therapy provided. Seen and assessed in his room. Gudelia Villa M.D. DR: KENNETH JOB#: [id number] CC:
--- NOTE | 2017-09-07 10:47 | General Progress Note ---
Assessment/Plan Problem List: (1) Chronic pain ICD Codes: G89.29 - Other chronic pain SNOMED: 98017619 (2) Hypokalemia ICD Codes: E87.6 - Hypokalemia SNOMED: 73298511 (3) HIV (human immunodeficiency virus infection) ICD Codes: B20 - Human immunodeficiency virus [HIV] disease SNOMED: 81289569 (4) Sepsis ICD Codes: A41.9 - Sepsis, unspecified organism SNOMED: 14573346 Qualifiers: Qualified Codes: A41.9 - Sepsis, unspecified organism (5) Empyema ICD Codes: J86.9 - Pyothorax without fistula SNOMED: 319569057 (6) Drug abuse and dependence ICD Codes: F19.20 - Other psychoactive substance dependence, uncomplicated SNOMED: 7918739 (7) Epidural abscess ICD Codes: G06.2 - Extradural and subdural abscess, unspecified SNOMED: 87724185 Status: unchanged Assessment/Plan ot pt diet abx neph f/u cbc bmp am higher level care prn Subjective Constitutional: Reports: weakness Allergies: Coded Allergies: No Known Allergies (Unverified , 08/06/17) All Systems: reviewed and negative except above Subjective o2nc sleepy calm Objective Last 24 Hour Vital Signs Date Time Temp Pulse Resp B/P (MAP) Pulse Ox O2 Delivery O2 Flow Rate FiO2 09/07/17 08:15 Room Air 09/07/17 08:00 98.8 73 18 125/71 (89) 94 98.8 09/07/17 04:00 98.1 76 18 137/67 (90) 96 98.1 09/07/17 00:00 97.6 80 18 121/80 (94) 94 97.6 09/06/17 21:00 Room Air 09/06/17 20:00 98.3 82 18 129/69 (89) 95 98.3 09/06/17 16:00 97.0 81 20 146/82 (103) 95 97.0 09/06/17 12:00 97.7 77 20 144/77 (99) 95 97.7 Intake and Output 09/06/17 09/07/17 19:00 07:00 Intake Total 1330 ml 780 ml Output Total 2300 ml Balance 1330 ml -1520 ml Intake Oral 220 ml IV Total 1110 ml 780 ml Output Urine Total 2300 ml # Voids 4 Laboratory Tests 09/07/17 06:00: White Blood Count 7.0, Red Blood Count 3.18L, Hemoglobin 8.9L, Hematocrit 27.1L , Mean Corpuscular Volume 85, Mean Corpuscular Hemoglobin 27.9, Mean Corpuscular Hemoglobin Concent 32.7, Red Cell Distribution Width 14.0, Platelet Count 220, Mean Platelet Volume 5.7L, Neutrophils (%) (Auto) 65.5, Lymphocytes ( %) (Auto) 24.9, Monocytes (%) (Auto) 7.0, Eosinophils (%) (Auto) 1.9, Basophils (%) (Auto) 0.6, Sodium Level 135L, Potassium Level 3.8, Chloride Level 102, Carbon Dioxide Level 28, Anion Gap 5, Blood Urea Nitrogen 6L, Creatinine 0.5L, Estimat Glomerular Filtration Rate > 60, Glucose Level 92, Calcium Level 8.2L Height (Feet): 5 Height (Inches): 7.00 Weight (Pounds): 166 General Appearance: lethargic EENT: normal ENT inspection Neck: normal alignment Cardiovascular: normal peripheral pulses, normal rate, regular rhythm Respiratory/Chest: chest wall non-tender, decreased breath sounds Abdomen: normal bowel sounds, non tender, soft Extremities: normal inspection Edema: no edema noted Arm (L), no edema noted Arm (R), no edema noted Leg (L), no edema noted Leg (R), no edema noted Pedal (L), no edema noted Pedal (R), no edema noted Generalized Neurologic: motor weakness Skin: normal pigmentation, warm/dry Chemo Dietrich DO Sep 07, 2017 10:47
--- NOTE | 2017-09-07 11:36 | General Surgery Progress Note ---
General Surgery-Progress Note Subjective Additional Comments resting comfortable. no events. pending placement Objective Last 24 Hour Vital Signs Date Time Temp Pulse Resp B/P (MAP) Pulse Ox O2 Delivery O2 Flow Rate FiO2 09/07/17 08:15 Room Air 09/07/17 08:00 98.8 73 18 125/71 (89) 94 98.8 09/07/17 04:00 98.1 76 18 137/67 (90) 96 98.1 09/07/17 00:00 97.6 80 18 121/80 (94) 94 97.6 09/06/17 21:00 Room Air 09/06/17 20:00 98.3 82 18 129/69 (89) 95 98.3 09/06/17 16:00 97.0 81 20 146/82 (103) 95 97.0 09/06/17 12:00 97.7 77 20 144/77 (99) 95 97.7 I&O Intake and Output 09/06/17 09/07/17 19:00 07:00 Intake Total 1330 ml 780 ml Output Total 2300 ml Balance 1330 ml -1520 ml Intake Oral 220 ml IV Total 1110 ml 780 ml Output Urine Total 2300 ml # Voids 4 Wound: clean, dry Drains: none Cardiovascular: RSR Respiratory: clear Abdomen: soft, flat, non-tender, present bowel sounds Extremities: no cyanosis Laboratory Tests Test 09/07/17 06:00 White Blood Count 7.0 K/UL (4.8-10.8) Red Blood Count 3.18 M/UL (4.70-6.10) L Hemoglobin 8.9 G/DL (14.2-18.0) L Hematocrit 27.1 % (42.0-52.0) L Mean Corpuscular Volume 85 FL (80-99) Mean Corpuscular Hemoglobin 27.9 PG (27.0-31.0) Mean Corpuscular Hemoglobin Concent 32.7 G/DL (32.0-36.0) Red Cell Distribution Width 14.0 % (11.6-14.8) Platelet Count 220 K/UL (150-450) Mean Platelet Volume 5.7 FL (6.5-10.1) L Neutrophils (%) (Auto) 65.5 % (45.0-75.0) Lymphocytes (%) (Auto) 24.9 % (20.0-45.0) Monocytes (%) (Auto) 7.0 % (1.0-10.0) Eosinophils (%) (Auto) 1.9 % (0.0-3.0) Basophils (%) (Auto) 0.6 % (0.0-2.0) Sodium Level 135 MMOL/L (136-145) L Potassium Level 3.8 MMOL/L (3.5-5.1) Chloride Level 102 MMOL/L (98-107) Carbon Dioxide Level 28 MMOL/L (21-32) Anion Gap 5 mmol/L (5-15) Blood Urea Nitrogen 6 mg/dL (7-18) L Creatinine 0.5 MG/DL (0.55-1.30) L Estimat Glomerular Filtration Rate > 60 mL/min (>60) Glucose Level 92 MG/DL (74-106) Calcium Level 8.2 MG/DL (8.5-10.1) L Plan Problems: (1) Empyema Assessment & Plan: s/p VATS. since chest tube removed. wounds healing. no signs of surgical site infection. does have pain on left ribs and likely healing from surgery patient signed out AMA last hospitalization prior to completion of therapy. Repeat chest CT now with larger right sided effusion possible empyema. MRI spine reviewed. spine abscess recommend tap of right side for cultures / eval -patient declined and refused thoracentesis needs spine surgery eval. possibly may need transfer to high level of care IV Abx will follow with Brian Milligan Sep 07, 2017 11:36
[2017-09-07 12:00] VITALS: BP 116/74
--- NOTE | 2017-09-07 12:29 | General Progress Note ---
Assessment/Plan Assessment/Plan (1) Left sided wall chest pain (2) Lung effusion possible empyema (3) S/p VATS (4) Intercostal Neuropathy (5) Lumbar Spondylosis (6) T9-10 discitis/osteomyelitis with epidural abscess (7) Cervical spinal stenosis We will continue Dilaudid and Morphine ER. Recommend Neurosurgical consultation as per yeast cake cutter. D/w Dr. Stevens and he concurred. Subjective Date patient seen: Sep 07, 2017 Time patient seen: 11:15 - am Allergies: Coded Allergies: No Known Allergies (Unverified , 08/06/17) Subjective REVIEW OF SYSTEMS: Denies rash, fever, chills, sweating, dizziness, drowsiness, blurred vision, sore throat, or change in weight. No nausea, vomiting, diarrhea, or blood in the stool or urine. He is complaining of left chest wall pain and back pain. SUBJECTIVE: Patient is in bed and reports that his pain has been better controlled with the addition of Morphine ER and continues to use the Dilaudid as needed. He has no new complaints. Objective Last 24 Hour Vital Signs Date Time Temp Pulse Resp B/P (MAP) Pulse Ox O2 Delivery O2 Flow Rate FiO2 09/07/17 12:00 98.8 71 18 116/74 (88) 95 98.8 09/07/17 08:15 Room Air 09/07/17 08:00 98.8 73 18 125/71 (89) 94 98.8 09/07/17 04:00 98.1 76 18 137/67 (90) 96 98.1 09/07/17 00:00 97.6 80 18 121/80 (94) 94 97.6 09/06/17 21:00 Room Air 09/06/17 20:00 98.3 82 18 129/69 (89) 95 98.3 09/06/17 16:00 97.0 81 20 146/82 (103) 95 97.0 Intake and Output 09/06/17 09/07/17 19:00 07:00 Intake Total 1330 ml 780 ml Output Total 2300 ml Balance 1330 ml -1520 ml Intake Oral 220 ml IV Total 1110 ml 780 ml Output Urine Total 2300 ml # Voids 4 Laboratory Tests 09/07/17 06:00: White Blood Count 7.0, Red Blood Count 3.18L, Hemoglobin 8.9L, Hematocrit 27.1L , Mean Corpuscular Volume 85, Mean Corpuscular Hemoglobin 27.9, Mean Corpuscular Hemoglobin Concent 32.7, Red Cell Distribution Width 14.0, Platelet Count 220, Mean Platelet Volume 5.7L, Neutrophils (%) (Auto) 65.5, Lymphocytes ( %) (Auto) 24.9, Monocytes (%) (Auto) 7.0, Eosinophils (%) (Auto) 1.9, Basophils (%) (Auto) 0.6, Sodium Level 135L, Potassium Level 3.8, Chloride Level 102, Carbon Dioxide Level 28, Anion Gap 5, Blood Urea Nitrogen 6L, Creatinine 0.5L, Estimat Glomerular Filtration Rate > 60, Glucose Level 92, Calcium Level 8.2L Height (Feet): 5 Height (Inches): 7.00 Weight (Pounds): 166 Objective GENERAL: Alert, awake, and oriented. LUNGS: Decreased breath sounds bilaterally. HEART: S1 S2 Regular. ABDOMEN: Benign. EXTREMITIES: No cyanosis. No clubbing. No edema. NEURO: No changes. Mark Rausch Sep 07, 2017 12:29
--- NOTE | 2017-09-07 13:08 | Infectious Diseases Prog Note ---
Assessment/Plan Assessment/Plan ASSESSMENT: The patient is a 56-year-old male with multiple medical problems, who has recent empyema/bacteremia due to methicillin-sensitive Staphylococcus aureus ( Signed off AMA on 08/18/17 and had incomplete treatment; only 10 day of 42) -CT chest 08/25: Increased size of loculated right pleural effusion. Small air in the pleural space. Smaller residual left loculated pleural fluid with small air. Small to moderate fluid collection now in the left fissure. Bilateral lower lobe atelectasis/consolidations and air space disease,similar. -s/p VATS, partial pleurectomy, decortication 08/14 -OR findings : Bronchoscopy: A minimal amount of mucopurulent secretion was lavaged and suctioned clear. No endobronchial lesions. -VATS: There were noted to be numerous adhesions tethering along to the surrounding chest wall. The disease appears to be localized in the left lower lobe as the left upper lobe was virtually spared. - OR cx MSSA -CT chest 08/10: Left pleural effusion. Scalloped appearance suggests loculation. Presence of gas bubbles suggest infection by gas-forming organism. Gas bubbles appear trapped within the fluid rather than floating nondependently , indicating the fluid may be highly viscous. - -08/07 Bcx 4/4 MSSA; 08/08 4/4+; 08/10 2/4 +; 08/11 2/4+; 08/13 Neg x4; Bcx 08/27 Negx4; 08/30 NTD -08/28 ESR 126 <86 (08/10), CRP 12 < 27 (08/09) Mild leukocytosis, recurrent- resolved Low grade fever, intermittent; resolved Probable endocarditis (NURA was not done). Thoracic Discitis/Osteomyelitis and epidural abscess T7-T10- causing spinal cord compression; Possible Cervical spodylodiscitis w/ cord compression > Quadriparesis -MRI Cervical spine: Disc narrowing at C5-6. Marrow edema of the adjacent C5 and C6 vertebral bodies is noted. This is most likely due to Modic type I degenerative change and reactive marrow edema, particularly given the absence of edema within the disc. However, the possibility of spondylodiscitis as etiology of this finding, particularly in view of recent diagnosis of thoracic epidural abscess and in view of the slight degree of surrounding soft tissue edema, should also be considered. Severe spinal stenosis with cord compression at multiple levels extending from C3-4 through C5-6. Minimum AP dimension of the spinal canal 5 mm. Due to image degradation, it is uncertain as to whether there is significant cord edema/myelomalacia present. Multilevel severe neural foraminal stenosis as detailed level by level basis above -MRI Thoracic Spine: Suspicion of cord compression T7-T10 secondary to a posterior epidural abscess versus mass. Abscess favored given suspicion of spondylodiscitis at T9-10 as well as bilateral pleural effusions and pneumonia ( recent diagnosed on CT chest). Significantly limited study due to motion. -MRI Lumbar spine: Evidence of T9-10 discitis/osteomyelitis. Suspect related to previously described adjacent bilateral pleural empyemas. Evidence of epidural abscess measuring at least 8 x 11 mm in diameter, and extending at least 5 cm craniocaudad, at and above the T9 level. This results in significant spinal stenosis. Note that it is incompletely included in the imaging volume, and the cephalad extent above mid T7 is unclear. Recommend thoracic MRI for further evaluation. As mentioned above, evidence of bilateral empyemas, with bilateral loculated pleural fluid collections and extensive enhancement and edema of the adjacent soft tissue. 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 The patient is on oxacillin day # 14/42-56 (the patient received 11 days of treatment prior to discharge). -monitor LFTs -08/25 SP IV Vanco and Cefepme #2 -08/18 SP IV Oxacillin #9 -08/10 SP Ceftriaxone d# 5 and IV Vancomycin #3 -08/06 SP Cefepime x1, Levaquin x1 -. Monitor CBC/CMP, temperatures -NEEDS EMERGENT transfer to tertiary hospital for neurosurgical evaluation for epidural abscess and thoracic discitis and OM as it causing spinal cord compression -awaiting transfer: having too much difficulty finding an accepting facility -Needs also further chest drainage; currently refusing -will also need NURA to eval for endocarditis/valvular abscess ( pt refused ) Discussed with RN Subjective Allergies: Coded Allergies: No Known Allergies (Unverified , 08/06/17) Subjective awaiting tranfer to higher level of care no leukocytosis afebrile Objective Vital Signs Last 24 Hour Vital Signs Date Time Temp Pulse Resp B/P (MAP) Pulse Ox O2 Delivery O2 Flow Rate FiO2 09/07/17 12:00 98.8 71 18 116/74 (88) 95 98.8 09/07/17 08:15 Room Air 09/07/17 08:00 98.8 73 18 125/71 (89) 94 98.8 09/07/17 04:00 98.1 76 18 137/67 (90) 96 98.1 09/07/17 00:00 97.6 80 18 121/80 (94) 94 97.6 09/06/17 21:00 Room Air 09/06/17 20:00 98.3 82 18 129/69 (89) 95 98.3 09/06/17 16:00 97.0 81 20 146/82 (103) 95 97.0 Height (Feet): 5 Height (Inches): 7.00 Weight (Pounds): 166 Objective HEENT: No pale conjunctivae. No icterus. NECK: No lymphadenopathy. CHEST: Clear. Incision site is healing. HEART: S1 and S2. ABDOMEN: Soft and nontender. BACK: The patient has tenderness in the lower thoracic and lumbar area. EXTREMITIES: No cyanosis. NEUROLOGIC: Awake and alert. +Babinski, brisk reflexes, LE>UE weakness. no sensory deficits Laboratory Tests Test 09/07/17 06:00 White Blood Count 7.0 K/UL (4.8-10.8) Red Blood Count 3.18 M/UL (4.70-6.10) L Hemoglobin 8.9 G/DL (14.2-18.0) L Hematocrit 27.1 % (42.0-52.0) L Mean Corpuscular Volume 85 FL (80-99) Mean Corpuscular Hemoglobin 27.9 PG (27.0-31.0) Mean Corpuscular Hemoglobin Concent 32.7 G/DL (32.0-36.0) Red Cell Distribution Width 14.0 % (11.6-14.8) Platelet Count 220 K/UL (150-450) Mean Platelet Volume 5.7 FL (6.5-10.1) L Neutrophils (%) (Auto) 65.5 % (45.0-75.0) Lymphocytes (%) (Auto) 24.9 % (20.0-45.0) Monocytes (%) (Auto) 7.0 % (1.0-10.0) Eosinophils (%) (Auto) 1.9 % (0.0-3.0) Basophils (%) (Auto) 0.6 % (0.0-2.0) Sodium Level 135 MMOL/L (136-145) L Potassium Level 3.8 MMOL/L (3.5-5.1) Chloride Level 102 MMOL/L (98-107) Carbon Dioxide Level 28 MMOL/L (21-32) Anion Gap 5 mmol/L (5-15) Blood Urea Nitrogen 6 mg/dL (7-18) L Creatinine 0.5 MG/DL (0.55-1.30) L Estimat Glomerular Filtration Rate > 60 mL/min (>60) Glucose Level 92 MG/DL (74-106) Calcium Level 8.2 MG/DL (8.5-10.1) L Current Medications Medications (Trade) Dose Ordered Sig/Veronica Route PRN Reason Start Time Stop Time Status Last Admin Dose Admin Acetaminophen (Tylenol) 650 mg Q4H PRN ORAL FEVER 08/25/17 08:15 09/24/17 08:14 08/27/17 13:06 Chlorhexidine Gluconate (Nishi-Hex 2%) 1 applic DAILY@1999 TOPIC 08/29/17 20:00 09/28/17 19:59 09/06/17 20:38 Dextrose (Dextrose 50%) 25 ml STAT PRN IV Hypoglycemia 08/25/17 08:15 09/24/17 08:14 Dextrose (Dextrose 50%) 50 ml STAT PRN IV Hypoglycemia 08/25/17 08:30 09/24/17 08:29 Docusate Sodium (Colace) 100 mg THREE TIMES A DAY ORAL 08/30/17 13:00 09/29/17 12:59 09/07/17 08:24 Duloxetine HCl (Cymbalta) 30 mg DAILY ORAL 08/25/17 09:00 09/24/17 08:59 09/07/17 08:24 Gabapentin (Neurontin) 300 mg THREE TIMES A DAY ORAL 08/25/17 09:00 09/24/17 08:59 09/07/17 08:25 Heparin Sodium (Porcine) (Heparin 5000 units/ml) 5,000 units EVERY 12 HOURS SUBQ 08/25/17 09:00 09/24/17 08:59 09/07/17 08:26 Hydromorphone HCl (Dilaudid) 1 mg Q3H PRN IVP Severe Pain (Pain Scale 7-10) 09/04/17 10:15 09/11/17 10:14 09/07/17 12:09 Lactulose (Cephulac) 30 gm QIDPRN PRN ORAL constipation 09/06/17 16:15 10/06/17 16:14 Morphine Sulfate (MS Contin) 15 mg Q8H ORAL 09/06/17 16:00 09/13/17 15:59 09/07/17 09:07 Naloxone HCl (Narcan) 0.2 mg Q2H PRN IVP respritory depression 09/06/17 16:08 10/06/17 16:07 Ondansetron HCl (Zofran) 4 mg Q6H PRN IVP Nausea & Vomiting 08/25/17 08:15 09/24/17 08:14 09/04/17 05:23 Oxacillin Sodium 2 gm/Sodium Chloride 110 ml @ 220 mls/hr Q4HR IVPB 08/25/17 21:00 10/04/17 20:59 09/07/17 08:29 Polyethylene Glycol (Miralax) 17 gm DAILYPRN PRN ORAL Constipation 08/25/17 08:15 09/24/17 08:14 09/02/17 14:38 Sodium Chloride 1,000 ml @ 50 mls/hr Q20H IV 08/26/17 13:45 09/25/17 13:44 09/07/17 04:26 Steph Crowder M.D. Sep 07, 2017 13:08
--- NOTE | 2017-09-07 13:35 | Pulmonology Progress Note ---
Assessment/Plan Problems: (1) Epidural abscess (2) Sepsis (3) Osteomyelitis (4) COPD (chronic obstructive pulmonary disease) (5) Hypoalbuminemia (6) Hepatitis C (7) HIV (human immunodeficiency virus infection) (8) Pleural effusion Assessment/Plan pain management no new complains spine surgery evaluation can not be done at this facility iv abx, ID note appreciated check electrolytes symptomatic treatment transfer to higher level of care Subjective ROS Limited/Unobtainable: No Constitutional: Reports: no symptoms HEENT: Repors: no symptoms Respiratory: Reports: no symptoms Allergies: Coded Allergies: No Known Allergies (Unverified , 08/06/17) Objective Last 24 Hour Vital Signs Date Time Temp Pulse Resp B/P (MAP) Pulse Ox O2 Delivery O2 Flow Rate FiO2 09/07/17 12:00 98.8 71 18 116/74 (88) 95 98.8 09/07/17 08:15 Room Air 09/07/17 08:00 98.8 73 18 125/71 (89) 94 98.8 09/07/17 04:00 98.1 76 18 137/67 (90) 96 98.1 09/07/17 00:00 97.6 80 18 121/80 (94) 94 97.6 09/06/17 21:00 Room Air 09/06/17 20:00 98.3 82 18 129/69 (89) 95 98.3 09/06/17 16:00 97.0 81 20 146/82 (103) 95 97.0 Intake and Output 09/06/17 09/07/17 19:00 07:00 Intake Total 1330 ml 780 ml Output Total 2300 ml Balance 1330 ml -1520 ml Intake Oral 220 ml IV Total 1110 ml 780 ml Output Urine Total 2300 ml # Voids 4 General Appearance: WD/WN HEENT: normocephalic, atraumatic Respiratory/Chest: chest wall non-tender, lungs clear Cardiovascular: normal peripheral pulses, normal rate Abdomen: normal bowel sounds, soft, non tender Genitourinary: normal external genitalia Extremities: no clubbing Skin: no rash Laboratory Tests 09/07/17 06:00: White Blood Count 7.0, Red Blood Count 3.18L, Hemoglobin 8.9L, Hematocrit 27.1L , Mean Corpuscular Volume 85, Mean Corpuscular Hemoglobin 27.9, Mean Corpuscular Hemoglobin Concent 32.7, Red Cell Distribution Width 14.0, Platelet Count 220, Mean Platelet Volume 5.7L, Neutrophils (%) (Auto) 65.5, Lymphocytes ( %) (Auto) 24.9, Monocytes (%) (Auto) 7.0, Eosinophils (%) (Auto) 1.9, Basophils (%) (Auto) 0.6, Sodium Level 135L, Potassium Level 3.8, Chloride Level 102, Carbon Dioxide Level 28, Anion Gap 5, Blood Urea Nitrogen 6L, Creatinine 0.5L, Estimat Glomerular Filtration Rate > 60, Glucose Level 92, Calcium Level 8.2L Current Medications Medications (Trade) Dose Ordered Sig/Veronica Route PRN Reason Start Time Stop Time Status Last Admin Dose Admin Acetaminophen (Tylenol) 650 mg Q4H PRN ORAL FEVER 08/25/17 08:15 09/24/17 08:14 08/27/17 13:06 Chlorhexidine Gluconate (Nishi-Hex 2%) 1 applic DAILY@2000 TOPIC 08/29/17 20:00 09/28/17 19:59 09/06/17 20:38 Dextrose (Dextrose 50%) 25 ml STAT PRN IV Hypoglycemia 08/25/17 08:15 09/24/17 08:14 Dextrose (Dextrose 50%) 50 ml STAT PRN IV Hypoglycemia 08/25/17 08:30 09/24/17 08:29 Docusate Sodium (Colace) 100 mg THREE TIMES A DAY ORAL 08/30/17 13:00 09/29/17 12:59 09/07/17 13:15 Duloxetine HCl (Cymbalta) 30 mg DAILY ORAL 08/25/17 09:00 09/24/17 08:59 09/07/17 08:24 Gabapentin (Neurontin) 300 mg THREE TIMES A DAY ORAL 08/25/17 09:00 09/24/17 08:59 09/07/17 13:15 Heparin Sodium (Porcine) (Heparin 5000 units/ml) 5,000 units EVERY 12 HOURS SUBQ 08/25/17 09:00 09/24/17 08:59 09/07/17 08:26 Hydromorphone HCl (Dilaudid) 1 mg Q3H PRN IVP Severe Pain (Pain Scale 7-10) 09/04/17 10:15 09/11/17 10:14 09/07/17 12:09 Lactulose (Cephulac) 30 gm QIDPRN PRN ORAL constipation 09/06/17 16:15 10/06/17 16:14 Morphine Sulfate (MS Contin) 15 mg Q8H ORAL 09/06/17 16:00 09/13/17 15:59 09/07/17 09:07 Naloxone HCl (Narcan) 0.2 mg Q2H PRN IVP respritory depression 09/06/17 16:08 10/06/17 16:07 Ondansetron HCl (Zofran) 4 mg Q6H PRN IVP Nausea & Vomiting 08/25/17 08:15 09/24/17 08:14 09/04/17 05:23 Oxacillin Sodium 2 gm/Sodium Chloride 110 ml @ 220 mls/hr Q4HR IVPB 08/25/17 21:00 10/04/17 20:59 09/07/17 13:15 Polyethylene Glycol (Miralax) 17 gm DAILYPRN PRN ORAL Constipation 08/25/17 08:15 09/24/17 08:14 09/02/17 14:38 Sodium Chloride 1,000 ml @ 50 mls/hr Q20H IV 08/26/17 13:45 09/25/17 13:44 09/07/17 04:26 Sally Cox MD Sep 07, 2017 13:35
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
[2017-09-07 16:00] VITALS: BP_SYST 114; BP_SYST 119; BP_DIAS 65; BP_DIAS 66
--- NOTE | 2017-09-07 17:25 | Cardiology Progress Note ---
Assessment/Plan Assessment/Plan 1. Bacteremia, refused NURA, TTE did not show vegetations but the study was limited due to poor images. 2. s/p VATS 3. Epidural abscess 4. COPD Subjective Subjective No cardiac events. Denies chest pain or SOB. Objective Last 24 Hour Vital Signs Date Time Temp Pulse Resp B/P (MAP) Pulse Ox O2 Delivery O2 Flow Rate FiO2 09/07/17 16:00 98.2 65 20 114/66 (82) 94 98.2 09/07/17 12:00 98.8 71 18 116/74 (88) 95 98.8 09/07/17 08:15 Room Air 09/07/17 08:00 98.8 73 18 125/71 (89) 94 98.8 09/07/17 04:00 98.1 76 18 137/67 (90) 96 98.1 09/07/17 00:00 97.6 80 18 121/80 (94) 94 97.6 09/06/17 21:00 Room Air 09/06/17 20:00 98.3 82 18 129/69 (89) 95 98.3 Intake and Output 09/06/17 09/07/17 19:00 07:00 Intake Total 1330 ml 780 ml Output Total 2300 ml Balance 1330 ml -1520 ml Intake Oral 220 ml IV Total 1110 ml 780 ml Output Urine Total 2300 ml # Voids 4 2D Echo: LVEF 55-60%, Grade I LVDD Laboratory Tests Test 09/07/17 06:00 White Blood Count 7.0 K/UL (4.8-10.8) Red Blood Count 3.18 M/UL (4.70-6.10) L Hemoglobin 8.9 G/DL (14.2-18.0) L Hematocrit 27.1 % (42.0-52.0) L Mean Corpuscular Volume 85 FL (80-99) Mean Corpuscular Hemoglobin 27.9 PG (27.0-31.0) Mean Corpuscular Hemoglobin Concent 32.7 G/DL (32.0-36.0) Red Cell Distribution Width 14.0 % (11.6-14.8) Platelet Count 220 K/UL (150-450) Mean Platelet Volume 5.7 FL (6.5-10.1) L Neutrophils (%) (Auto) 65.5 % (45.0-75.0) Lymphocytes (%) (Auto) 24.9 % (20.0-45.0) Monocytes (%) (Auto) 7.0 % (1.0-10.0) Eosinophils (%) (Auto) 1.9 % (0.0-3.0) Basophils (%) (Auto) 0.6 % (0.0-2.0) Sodium Level 135 MMOL/L (136-145) L Potassium Level 3.8 MMOL/L (3.5-5.1) Chloride Level 102 MMOL/L (98-107) Carbon Dioxide Level 28 MMOL/L (21-32) Anion Gap 5 mmol/L (5-15) Blood Urea Nitrogen 6 mg/dL (7-18) L Creatinine 0.5 MG/DL (0.55-1.30) L Estimat Glomerular Filtration Rate > 60 mL/min (>60) Glucose Level 92 MG/DL (74-106) Calcium Level 8.2 MG/DL (8.5-10.1) L Objective HEENT: Normocephalic, atraumatic, PERRLA, EOMI, No pale conjunctivae. No icterus. NECK: No JVD, no carotid bruit. CHEST: Normal breath sounds HEART: Normal S1 and S2, no murmurs, gallops or rubs. ABDOMEN: Soft and nontender, no hepatosplenomegaly, + BS. BACK: The patient has tenderness in the lower thoracic and lumbar area. EXTREMITIES: No edema , clubbing or cyanosis. Omid Tellez MD Sep 07, 2017 17:25
[2017-09-07 20:00] VITALS: BP 117/61
[2017-09-07] MEDS: Dyna-Hex 2% Top Sol 2oz TOPIC SCH (20:50)
[2017-09-08] VITALS (7 sets, daily range): BP systolic 102–147; BP diastolic 57–69
[2017-09-08] MEDS: Oxacillin 2 GM in NS 110 ML IVPB SCH ×6 (00:24→21:30)
[2017-09-08] MEDS: MS Contin 15mg tab ORAL SCH ×3 (00:24→16:00)
[2017-09-08] MEDS: HYDROmorphone 1mg/ml Carpuject IVP PRN ×7 (01:27→22:45)
[2017-09-08 06:31] LABS: BASOPHILS % (AUTO) 0.9 % (0.0-2.0); EOSINOPHILS % (AUTO) 1.9 % (0.0-3.0); HEMATOCRIT 27.4 % (42.0-52.0); HEMOGLOBIN 9.4 G/DL (14.2-18.0); LYMPHOCYTES % (AUTO) 27.1 % (20.0-45.0); MEAN CORPUSCULAR VOLUME 86 FL (80-99); MONOCYTES % (AUTO) 7.8 % (1.0-10.0); NEUTROPHILS % (AUTO) 62.3 % (45.0-75.0); PLATELET COUNT 230 K/UL (150-450); RED BLOOD COUNT 3.19 M/UL (4.70-6.10); RED CELL DISTRIBUTION WIDTH 14.3 % (11.6-14.8); WHITE BLOOD COUNT 6.3 K/UL (4.8-10.8)
[2017-09-08 06:51] LABS: ANION GAP 5 mmol/L (5-15); BLOOD UREA NITROGEN 8 mg/dL (7-18); CALCIUM 8.4 MG/DL (8.5-10.1); CARBON DIOXIDE 29 MMOL/L (21-32); CHLORIDE 101 MMOL/L (98-107); CREATININE 0.6 MG/DL (0.55-1.30); POTASSIUM 4.1 MMOL/L (3.5-5.1); SODIUM 135 MMOL/L (136-145)
--- NOTE | 2017-09-08 07:48 | Pulmonology Progress Note ---
Assessment/Plan Assessment/Plan ASSESSMENT Sepsis Probable endocarditis Thoracic discitis/osteomyelitis Epidural abscess T7-10 History of recent MSSA bacteremia secondary to empyema Status post VATS 7/ Spinal cord compression bilateral loculated pleural effusion ( R>L) Pneumonia COPD/asthma Polysubstance abuse HIV status Hepatitis C, status post treatment Tobacco abuse Quadriparesis Major depressive disorder Cervical spinal stenosis, severe Intercoastal neuropathy Anemia PLAN OF CARE Gentle IVF abx, ID follows blood culture negative stool for C. difficile negative sputum culture + cookie C, T L spine MRI revealed T9-10 discitis/, osteomyelitis; T7-10 epidural abscess with cord compression, bilateral empyema, bilateral loculated pleural effusion (R>L), severe spinal stenosis C spine ECHO with EF 55-60% no WMA, Cardiology follows patient refused NURA on ECHO difficult to visualize vegetation due to poor images repeated CT chest with bilateral loculated pleural effusion, bilateral consolidation O2 titrate, HHN follow-up chest x-ray DVT prophylaxis neuro follows, no new neuro changes quadriparesis since early August 2017 recommended transfer to higher level of care for eval and further management by spinal surgeon surgery follows after chest tube removed ( on previous admission) , wounds healing. no signs of surgical site infection. admits to left sided pain, likely healing from surgery patient signed out AMA on last hospitalization prior to completion of therapy. repeat chest CT with bilateral pleural effusion , larger on the right, possible empyema. patient declined and refused thoracentesis pain management pain specialist follows unfortunately unable to obtain spinal surgery evaluation transfer to higher level of care pending case discussed and evaluated by supervising physician Subjective Allergies: Coded Allergies: No Known Allergies (Unverified , 08/06/17) Subjective reported generalized weakness afebrile, no leucocytosis pulse ox stable on RA both legs still feeling numb. unable to stand and walk Objective Last 24 Hour Vital Signs Date Time Temp Pulse Resp B/P (MAP) Pulse Ox O2 Delivery O2 Flow Rate FiO2 09/08/17 06:03 98.5 72 18 102/59 (73) 94 98.5 09/08/17 04:00 98.5 72 18 102/59 (73) 94 98.5 09/08/17 00:26 98.6 85 19 147/69 (95) 95 98.6 09/07/17 21:00 Room Air 09/07/17 20:13 75 20 Room Air 21 09/07/17 20:00 98.4 80 19 117/61 (79) 94 98.4 09/07/17 16:00 98.2 65 20 114/66 (82) 94 98.2 09/07/17 12:00 98.8 71 18 116/74 (88) 95 98.8 09/07/17 08:15 Room Air 09/07/17 08:00 98.8 73 18 125/71 (89) 94 98.8 Intake and Output 09/07/17 09/08/17 19:00 07:00 Intake Total 1480 ml 1280 ml Output Total 1950 ml 1200 ml Balance -470 ml 80 ml Intake Oral 540 ml 600 ml IV Total 940 ml 680 ml Output Urine Total 1950 ml 1200 ml General Appearance: no acute distress HEENT: normocephalic, atraumatic, anicteric, mucous membranes moist Respiratory/Chest: no respiratory distress, no accessory muscle use, decreased breath sounds - at bases Cardiovascular: normal rate Abdomen: normal bowel sounds, soft, non tender, non distended Extremities: no edema, pedal pulses normal Neurologic/Psychiatric: alert, oriented x 3, responsive, other - quadriparesis Laboratory Tests 09/08/17 06:00: White Blood Count 6.3, Red Blood Count 3.19L, Hemoglobin 9.4L, Hematocrit 27.4L , Mean Corpuscular Volume 86, Mean Corpuscular Hemoglobin 29.4, Mean Corpuscular Hemoglobin Concent 34.2, Red Cell Distribution Width 14.3, Platelet Count 230, Mean Platelet Volume 5.6L, Neutrophils (%) (Auto) 62.3, Lymphocytes ( %) (Auto) 27.1, Monocytes (%) (Auto) 7.8, Eosinophils (%) (Auto) 1.9, Basophils (%) (Auto) 0.9, Sodium Level 135L, Potassium Level 4.1, Chloride Level 101, Carbon Dioxide Level 29, Anion Gap 5, Blood Urea Nitrogen 8, Creatinine 0.6, Estimat Glomerular Filtration Rate > 60, Glucose Level 96, Calcium Level 8.4L Current Medications Medications (Trade) Dose Ordered Sig/Veronica Route PRN Reason Start Time Stop Time Status Last Admin Dose Admin Acetaminophen (Tylenol) 650 mg Q4H PRN ORAL FEVER 08/25/17 08:15 09/24/17 08:14 08/27/17 13:06 Chlorhexidine Gluconate (Nishi-Hex 2%) 1 applic DAILY@2000 TOPIC 08/29/17 20:00 09/28/17 19:59 09/07/17 20:50 Dextrose (Dextrose 50%) 25 ml STAT PRN IV Hypoglycemia 08/25/17 08:15 09/24/17 08:14 Dextrose (Dextrose 50%) 50 ml STAT PRN IV Hypoglycemia 08/25/17 08:30 09/24/17 08:29 Docusate Sodium (Colace) 100 mg THREE TIMES A DAY ORAL 08/30/17 13:00 09/29/17 12:59 09/07/17 17:28 Duloxetine HCl (Cymbalta) 30 mg DAILY ORAL 08/25/17 09:00 09/24/17 08:59 09/07/17 08:24 Gabapentin (Neurontin) 300 mg THREE TIMES A DAY ORAL 08/25/17 09:00 09/24/17 08:59 09/07/17 17:28 Heparin Sodium (Porcine) (Heparin 5000 units/ml) 5,000 units EVERY 12 HOURS SUBQ 08/25/17 09:00 09/24/17 08:59 09/07/17 20:51 Hydromorphone HCl (Dilaudid) 1 mg Q3H PRN IVP Severe Pain (Pain Scale 7-10) 09/04/17 10:15 09/11/17 10:14 09/08/17 04:53 Lactulose (Cephulac) 30 gm QIDPRN PRN ORAL constipation 09/06/17 16:15 10/06/17 16:14 Morphine Sulfate (MS Contin) 15 mg Q8H ORAL 09/06/17 16:00 09/13/17 15:59 09/08/17 00:24 Naloxone HCl (Narcan) 0.2 mg Q2H PRN IVP respritory depression 09/06/17 16:08 10/06/17 16:07 Ondansetron HCl (Zofran) 4 mg Q6H PRN IVP Nausea & Vomiting 08/25/17 08:15 09/24/17 08:14 09/04/17 05:23 Oxacillin Sodium 2 gm/Sodium Chloride 110 ml @ 220 mls/hr Q4HR IVPB 08/25/17 21:00 10/04/17 20:59 09/08/17 04:48 Polyethylene Glycol (Miralax) 17 gm DAILYPRN PRN ORAL Constipation 08/25/17 08:15 09/24/17 08:14 09/02/17 14:38 Sodium Chloride 1,000 ml @ 50 mls/hr Q20H IV 08/26/17 13:45 09/25/17 13:44 09/08/17 01:27 Abbey Powell [employer] Sep 08, 2017 07:48
[2017-09-08] MEDS: Docusate 100mg cap ORAL SCH ×3 (08:46→17:55)
[2017-09-08] MEDS: DULoxetine 30mg cap ORAL SCH (08:46)
[2017-09-08] MEDS: Heparin 5000 units/ml inj SUBQ SCH ×2 (08:47→21:31)
[2017-09-08] MEDS ORDERED: Albuterol/Ipratropium 3ml neb HHN PRN (10:15)
--- NOTE | 2017-09-08 11:20 | General Progress Note ---
Assessment/Plan Status: unchanged Assessment/Plan INTERNAL MEDICINE PROGRESS NOTE Covering for Dr. Dietrich # Chronic pain. # Hypokalemia. --> Replete potassium # HIV/AIDs --> Continue current meds # Sepsis --> Pt on abx # Epidural abscess Assessment/Plan ot pt diet abx neph f/u cbc bmp am higher level care prn Subjective Date patient seen: Sep 08, 2017 ROS Limited/Unobtainable: Yes Constitutional: Reports: weakness Allergies: Coded Allergies: No Known Allergies (Unverified , 08/06/17) All Systems: reviewed and negative except above Subjective Pt awake and alert. No acute events. Patient refused to take MS contin pain med. Objective Last 24 Hour Vital Signs Date Time Temp Pulse Resp B/P (MAP) Pulse Ox O2 Delivery O2 Flow Rate FiO2 09/08/17 09:00 Room Air 09/08/17 08:22 79 20 Room Air 21 09/08/17 08:00 99.0 78 20 104/57 (73) 99 99.0 09/08/17 06:03 98.5 72 18 102/59 (73) 94 98.5 09/08/17 04:00 98.5 72 18 102/59 (73) 94 98.5 09/08/17 00:26 98.6 85 19 147/69 (95) 95 98.6 09/07/17 21:00 Room Air 09/07/17 20:13 75 20 Room Air 21 09/07/17 20:00 98.4 80 19 117/61 (79) 94 98.4 09/07/17 16:00 98.2 65 20 114/66 (82) 94 98.2 09/07/17 12:00 98.8 71 18 116/74 (88) 95 98.8 Intake and Output 09/07/17 09/08/17 19:00 07:00 Intake Total 1480 ml 1330 ml Output Total 1950 ml 1200 ml Balance -470 ml 130 ml Intake Oral 540 ml 600 ml IV Total 940 ml 730 ml Output Urine Total 1950 ml 1200 ml Laboratory Tests 09/08/17 06:00: White Blood Count 6.3, Red Blood Count 3.19L, Hemoglobin 9.4L, Hematocrit 27.4L , Mean Corpuscular Volume 86, Mean Corpuscular Hemoglobin 29.4, Mean Corpuscular Hemoglobin Concent 34.2, Red Cell Distribution Width 14.3, Platelet Count 230, Mean Platelet Volume 5.6L, Neutrophils (%) (Auto) 62.3, Lymphocytes ( %) (Auto) 27.1, Monocytes (%) (Auto) 7.8, Eosinophils (%) (Auto) 1.9, Basophils (%) (Auto) 0.9, Sodium Level 135L, Potassium Level 4.1, Chloride Level 101, Carbon Dioxide Level 29, Anion Gap 5, Blood Urea Nitrogen 8, Creatinine 0.6, Estimat Glomerular Filtration Rate > 60, Glucose Level 96, Calcium Level 8.4L Height (Feet): 5 Height (Inches): 7.00 Weight (Pounds): 166 General Appearance: no apparent distress EENT: PERRL/EOMI Neck: normal alignment Cardiovascular: normal peripheral pulses Respiratory/Chest: no respiratory distress Abdomen: soft Hi Cameron MD Sep 08, 2017 11:20
--- NOTE | 2017-09-08 13:21 | Infectious Diseases Prog Note ---
Assessment/Plan Assessment/Plan ASSESSMENT: The patient is a 56-year-old male with multiple medical problems, who has recent empyema/bacteremia due to methicillin-sensitive Staphylococcus aureus ( Signed off AMA on 08/18/17 and had incomplete treatment; only 10 day of 42) -CT chest 08/25: Increased size of loculated right pleural effusion. Small air in the pleural space. Smaller residual left loculated pleural fluid with small air. Small to moderate fluid collection now in the left fissure. Bilateral lower lobe atelectasis/consolidations and air space disease,similar. -s/p VATS, partial pleurectomy, decortication 08/14 -OR findings : Bronchoscopy: A minimal amount of mucopurulent secretion was lavaged and suctioned clear. No endobronchial lesions. -VATS: There were noted to be numerous adhesions tethering along to the surrounding chest wall. The disease appears to be localized in the left lower lobe as the left upper lobe was virtually spared. - OR cx MSSA -CT chest 08/10: Left pleural effusion. Scalloped appearance suggests loculation. Presence of gas bubbles suggest infection by gas-forming organism. Gas bubbles appear trapped within the fluid rather than floating nondependently , indicating the fluid may be highly viscous. - -08/07 Bcx 4/4 MSSA; 08/08 4/4+; 08/10 2/4 +; 08/11 2/4+; 08/13 Neg x4; Bcx 08/27 Negx4; 08/30 Neg -08/28 ESR 126 <86 (08/10), CRP 12 < 27 (08/09) Mild leukocytosis, recurrent- resolved Low grade fever, intermittent; resolved Probable endocarditis (NURA was not done). Thoracic Discitis/Osteomyelitis and epidural abscess T7-T10- causing spinal cord compression; Possible Cervical spodylodiscitis w/ cord compression > Quadriparesis -MRI Cervical spine: Disc narrowing at C5-6. Marrow edema of the adjacent C5 and C6 vertebral bodies is noted. This is most likely due to Modic type I degenerative change and reactive marrow edema, particularly given the absence of edema within the disc. However, the possibility of spondylodiscitis as etiology of this finding, particularly in view of recent diagnosis of thoracic epidural abscess and in view of the slight degree of surrounding soft tissue edema, should also be considered. Severe spinal stenosis with cord compression at multiple levels extending from C3-4 through C5-6. Minimum AP dimension of the spinal canal 5 mm. Due to image degradation, it is uncertain as to whether there is significant cord edema/myelomalacia present. Multilevel severe neural foraminal stenosis as detailed level by level basis above -MRI Thoracic Spine: Suspicion of cord compression T7-T10 secondary to a posterior epidural abscess versus mass. Abscess favored given suspicion of spondylodiscitis at T9-10 as well as bilateral pleural effusions and pneumonia ( recent diagnosed on CT chest). Significantly limited study due to motion. -MRI Lumbar spine: Evidence of T9-10 discitis/osteomyelitis. Suspect related to previously described adjacent bilateral pleural empyemas. Evidence of epidural abscess measuring at least 8 x 11 mm in diameter, and extending at least 5 cm craniocaudad, at and above the T9 level. This results in significant spinal stenosis. Note that it is incompletely included in the imaging volume, and the cephalad extent above mid T7 is unclear. Recommend thoracic MRI for further evaluation. As mentioned above, evidence of bilateral empyemas, with bilateral loculated pleural fluid collections and extensive enhancement and edema of the adjacent soft tissue. 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 The patient is on oxacillin day # 15/42-56 (the patient received 11 days of treatment prior to discharge). -monitor LFTs -/ SP IV Vanco and Cefepme #2 -/ SP IV Oxacillin #9 -08/10 SP Ceftriaxone d# 5 and IV Vancomycin #3 -08/06 SP Cefepime x1, Levaquin x1 -. Monitor CBC/CMP, temperatures -NEEDS EMERGENT transfer to tertiary hospital for neurosurgical evaluation for epidural abscess and thoracic discitis and OM as it causing spinal cord compression -awaiting transfer: having too much difficulty finding an accepting facility -Needs also further chest drainage; currently refusing -will also need NURA to eval for endocarditis/valvular abscess ( pt refused ) -Repeat MRI w/wo C, T, L spine Discussed with RN and casey saw operator Subjective Allergies: Coded Allergies: No Known Allergies (Unverified , 08/06/17) Subjective awaiting tranfer to higher level of care no leukocytosis afebrile insurance requesting repeat MRI Objective Vital Signs Last 24 Hour Vital Signs Date Time Temp Pulse Resp B/P (MAP) Pulse Ox O2 Delivery O2 Flow Rate FiO2 09/08/17 12:00 99.2 75 20 117/60 (79) 95 99.2 09/08/17 09:00 Room Air 09/08/17 08:22 79 20 Room Air 21 09/08/17 08:00 99.0 78 20 104/57 (73) 99 99.0 09/08/17 06:03 98.5 72 18 102/59 (73) 94 98.5 09/08/17 04:00 98.5 72 18 102/59 (73) 94 98.5 09/08/17 00:26 98.6 85 19 147/69 (95) 95 98.6 09/07/17 21:00 Room Air 09/07/17 20:13 75 20 Room Air 21 09/07/17 20:00 98.4 80 19 117/61 (79) 94 98.4 09/07/17 16:00 98.2 65 20 114/66 (82) 94 98.2 Height (Feet): 5 Height (Inches): 7.00 Weight (Pounds): 166 Objective HEENT: No pale conjunctivae. No icterus. NECK: No lymphadenopathy. CHEST: Clear. Incision site is healing. HEART: S1 and S2. ABDOMEN: Soft and nontender. BACK: The patient has tenderness in the lower thoracic and lumbar area. EXTREMITIES: No cyanosis. NEUROLOGIC: Awake and alert. +Babinski, brisk reflexes, LE>UE weakness. no sensory deficits Laboratory Tests Test 09/08/17 06:00 White Blood Count 6.3 K/UL (4.8-10.8) Red Blood Count 3.19 M/UL (4.70-6.10) L Hemoglobin 9.4 G/DL (14.2-18.0) L Hematocrit 27.4 % (42.0-52.0) L Mean Corpuscular Volume 86 FL (80-99) Mean Corpuscular Hemoglobin 29.4 PG (27.0-31.0) Mean Corpuscular Hemoglobin Concent 34.2 G/DL (32.0-36.0) Red Cell Distribution Width 14.3 % (11.6-14.8) Platelet Count 230 K/UL (150-450) Mean Platelet Volume 5.6 FL (6.5-10.1) L Neutrophils (%) (Auto) 62.3 % (45.0-75.0) Lymphocytes (%) (Auto) 27.1 % (20.0-45.0) Monocytes (%) (Auto) 7.8 % (1.0-10.0) Eosinophils (%) (Auto) 1.9 % (0.0-3.0) Basophils (%) (Auto) 0.9 % (0.0-2.0) Sodium Level 135 MMOL/L (136-145) L Potassium Level 4.1 MMOL/L (3.5-5.1) Chloride Level 101 MMOL/L (98-107) Carbon Dioxide Level 29 MMOL/L (21-32) Anion Gap 5 mmol/L (5-15) Blood Urea Nitrogen 8 mg/dL (7-18) Creatinine 0.6 MG/DL (0.55-1.30) Estimat Glomerular Filtration Rate > 60 mL/min (>60) Glucose Level 96 MG/DL (74-106) Calcium Level 8.4 MG/DL (8.5-10.1) L Current Medications Medications (Trade) Dose Ordered Sig/Veronica Route PRN Reason Start Time Stop Time Status Last Admin Dose Admin Acetaminophen (Tylenol) 650 mg Q4H PRN ORAL FEVER 08/25/17 08:15 09/24/17 08:14 08/27/17 13:06 Albuterol/ Ipratropium (Albuterol/ Ipratropium) 3 ml Q4H PRN HHN Shortness of Breath 09/08/17 10:15 09/13/17 10:14 Chlorhexidine Gluconate (Nishi-Hex 2%) 1 applic DAILY@2000 TOPIC 08/29/17 20:00 09/28/17 19:59 09/07/17 20:50 Dextrose (Dextrose 50%) 25 ml STAT PRN IV Hypoglycemia 08/25/17 08:15 09/24/17 08:14 Dextrose (Dextrose 50%) 50 ml STAT PRN IV Hypoglycemia 08/25/17 08:30 09/24/17 08:29 Docusate Sodium (Colace) 100 mg THREE TIMES A DAY ORAL 08/30/17 13:00 09/29/17 12:59 09/08/17 12:46 Duloxetine HCl (Cymbalta) 30 mg DAILY ORAL 08/25/17 09:00 09/24/17 08:59 09/08/17 08:46 Gabapentin (Neurontin) 300 mg THREE TIMES A DAY ORAL 08/25/17 09:00 09/24/17 08:59 09/08/17 12:46 Heparin Sodium (Porcine) (Heparin 5000 units/ml) 5,000 units EVERY 12 HOURS SUBQ 08/25/17 09:00 09/24/17 08:59 09/08/17 08:47 Hydromorphone HCl (Dilaudid) 1 mg Q3H PRN IVP Severe Pain (Pain Scale 7-10) 09/04/17 10:15 09/11/17 10:14 09/08/17 12:46 Lactulose (Cephulac) 30 gm QIDPRN PRN ORAL constipation 09/06/17 16:15 10/06/17 16:14 Morphine Sulfate (MS Contin) 15 mg Q8H ORAL 09/06/17 16:00 09/13/17 15:59 09/08/17 00:24 Naloxone HCl (Narcan) 0.2 mg Q2H PRN IVP respritory depression 09/06/17 16:08 10/06/17 16:07 Ondansetron HCl (Zofran) 4 mg Q6H PRN IVP Nausea & Vomiting 08/25/17 08:15 09/24/17 08:14 09/04/17 05:23 Oxacillin Sodium 2 gm/Sodium Chloride 110 ml @ 220 mls/hr Q4HR IVPB 08/25/17 21:00 10/04/17 20:59 09/08/17 12:54 Polyethylene Glycol (Miralax) 17 gm DAILYPRN PRN ORAL Constipation 08/25/17 08:15 09/24/17 08:14 09/02/17 14:38 Sodium Chloride 1,000 ml @ 50 mls/hr Q20H IV 08/26/17 13:45 09/25/17 13:44 09/08/17 01:27 Steph Crowder M.D. Sep 08, 2017 13:21
[2017-09-08] MEDS ORDERED: Gadavist 7.5mMol/7.5ml vial IV PRN ×3 (13:30)
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
--- NOTE | 2017-09-08 15:54 | Cardiology Progress Note ---
Assessment/Plan Assessment/Plan 1. Bacteremia, refused NURA, TTE did not show vegetations but the study was limited due to poor images. 2. s/p VATS 3. Epidural abscess 4. COPD Subjective Subjective No cardiac events. No chest pain or SOB. Objective Last 24 Hour Vital Signs Date Time Temp Pulse Resp B/P (MAP) Pulse Ox O2 Delivery O2 Flow Rate FiO2 09/08/17 12:00 99.2 75 20 117/60 (79) 95 99.2 09/08/17 09:00 Room Air 09/08/17 08:22 79 20 Room Air 21 09/08/17 08:00 99.0 78 20 104/57 (73) 99 99.0 09/08/17 06:03 98.5 72 18 102/59 (73) 94 98.5 09/08/17 04:00 98.5 72 18 102/59 (73) 94 98.5 09/08/17 00:26 98.6 85 19 147/69 (95) 95 98.6 09/07/17 21:00 Room Air 09/07/17 20:13 75 20 Room Air 21 09/07/17 20:00 98.4 80 19 117/61 (79) 94 98.4 09/07/17 16:00 98.2 65 20 114/66 (82) 94 98.2 Intake and Output 09/07/17 09/08/17 19:00 07:00 Intake Total 1480 ml 1330 ml Output Total 1950 ml 1200 ml Balance -470 ml 130 ml Intake Oral 540 ml 600 ml IV Total 940 ml 730 ml Output Urine Total 1950 ml 1200 ml 2D Echo: LVEF 55-60%, Grade I LVDD Laboratory Tests Test 09/08/17 06:00 White Blood Count 6.3 K/UL (4.8-10.8) Red Blood Count 3.19 M/UL (4.70-6.10) L Hemoglobin 9.4 G/DL (14.2-18.0) L Hematocrit 27.4 % (42.0-52.0) L Mean Corpuscular Volume 86 FL (80-99) Mean Corpuscular Hemoglobin 29.4 PG (27.0-31.0) Mean Corpuscular Hemoglobin Concent 34.2 G/DL (32.0-36.0) Red Cell Distribution Width 14.3 % (11.6-14.8) Platelet Count 230 K/UL (150-450) Mean Platelet Volume 5.6 FL (6.5-10.1) L Neutrophils (%) (Auto) 62.3 % (45.0-75.0) Lymphocytes (%) (Auto) 27.1 % (20.0-45.0) Monocytes (%) (Auto) 7.8 % (1.0-10.0) Eosinophils (%) (Auto) 1.9 % (0.0-3.0) Basophils (%) (Auto) 0.9 % (0.0-2.0) Sodium Level 135 MMOL/L (136-145) L Potassium Level 4.1 MMOL/L (3.5-5.1) Chloride Level 101 MMOL/L (98-107) Carbon Dioxide Level 29 MMOL/L (21-32) Anion Gap 5 mmol/L (5-15) Blood Urea Nitrogen 8 mg/dL (7-18) Creatinine 0.6 MG/DL (0.55-1.30) Estimat Glomerular Filtration Rate > 60 mL/min (>60) Glucose Level 96 MG/DL (74-106) Calcium Level 8.4 MG/DL (8.5-10.1) L Objective HEENT: Normocephalic, atraumatic, PERRLA, EOMI, No pale conjunctivae. No icterus. NECK: No JVD, no carotid bruit. CHEST: Normal breath sounds HEART: Normal S1 and S2, no murmurs, gallops or rubs. ABDOMEN: Soft and nontender, no hepatosplenomegaly, + BS. BACK: The patient has tenderness in the lower thoracic and lumbar area. EXTREMITIES: No edema , clubbing or cyanosis. Omid Tellez MD Sep 08, 2017 15:54
[2017-09-08] MEDS: Dyna-Hex 2% Top Sol 2oz TOPIC SCH (21:30)
[2017-09-09] VITALS: BP 104/65
--- NOTE | 2017-09-09 | Progress Note ---
DATE: 09/08/2017 NOTE: POOR AUDIO SUBJECTIVE: The patient is a 57-year-old male patient who has sepsis and empyema. the patient is confused and disorganized. His mood is labile. He has got no logical plan for his own self-care. anxiety and depression secondary to sepsis and empyema. That is why his attending has requested daily psychiatric consultation. MENTAL STATUS EXAMINATION: This is a 57-year-old male. Appearance is disheveled. Attitude, irritable and agitated. Affect is guarded and restricted. Intellect poor. Mood is depressed and anxious. Motor activity, psychomotor agitation. Attention span is poor. Orientation x2. Speech is pressured. Thought process, disorganized and illogical. Thought content, auditory hallucinations and paranoid delusions. Insight and judgement is poor. DIAGNOSIS: Major depressive disorder, mild, recurrent without psychotic features. PLAN: Treat him with Cymbalta 30 mg a day and Neurontin 300 mg a day. Provided 18-20 minutes of cognitive behavioral therapy. automatic negative thoughts . Chart reviewed. Discussed with staff. Gudelia Villa M.D. DR: RUTH ANN JOB#: [id number] CC:
[2017-09-09] MEDS: Oxacillin 2 GM in NS 110 ML IVPB SCH ×6 (00:53→21:05)
[2017-09-09] MEDS: HYDROmorphone 1mg/ml Carpuject IVP PRN ×7 (01:48→21:02)
[2017-09-09 04:00] VITALS: BP 104/62
[2017-09-09 06:44] LABS: ANION GAP 6 mmol/L (5-15); BLOOD UREA NITROGEN 8 mg/dL (7-18); CALCIUM 8.3 MG/DL (8.5-10.1); CARBON DIOXIDE 28 MMOL/L (21-32); CHLORIDE 100 MMOL/L (98-107); CREATININE 0.6 MG/DL (0.55-1.30); POTASSIUM 4.1 MMOL/L (3.5-5.1); SODIUM 134 MMOL/L (136-145)
[2017-09-09 06:51] LABS: ALANINE AMINOTRANSFERASE 15 U/L (12-78); ALBUMIN 1.9 G/DL (3.4-5.0); ALKALINE PHOSPHATASE 86 U/L (46-116); ASPARTATE AMINO TRANSFERASE 14 U/L (15-37); BASOPHILS % (AUTO) 0.4 % (0.0-2.0); BILIRUBIN,DIRECT 0.1 MG/DL (0.0-0.3); BILIRUBIN,TOTAL 0.3 MG/DL (0.2-1.0); HEMATOCRIT 28.3 % (42.0-52.0); HEMOGLOBIN 9.2 G/DL (14.2-18.0); MEAN CORPUSCULAR VOLUME 86 FL (80-99); NEUTROPHILS % (AUTO) 63.6 % (45.0-75.0); PLATELET COUNT 249 K/UL (150-450); RED BLOOD COUNT 3.31 M/UL (4.70-6.10); RED CELL DISTRIBUTION WIDTH 15.2 % (11.6-14.8); WHITE BLOOD COUNT 6.8 K/UL (4.8-10.8)
[2017-09-09 08:00] VITALS: BP 112/54
[2017-09-09] MEDS: Docusate 100mg cap ORAL SCH ×3 (08:03→17:29)
[2017-09-09] MEDS: DULoxetine 30mg cap ORAL SCH (08:03)
[2017-09-09] MEDS: Heparin 5000 units/ml inj SUBQ SCH ×2 (08:04→21:03)
--- NOTE | 2017-09-09 08:30 | Pulmonology Progress Note ---
Assessment/Plan Assessment/Plan ASSESSMENT Sepsis Probable endocarditis Thoracic discitis/osteomyelitis Epidural abscess T7-10 History of recent MSSA bacteremia secondary to empyema Status post VATS 7/3 Spinal cord compression bilateral loculated pleural effusion ( R>L) Pneumonia COPD/asthma Polysubstance abuse HIV status Hepatitis C, status post treatment Tobacco abuse Quadriparesis Major depressive disorder Cervical spinal stenosis, severe Intercoastal neuropathy Anemia PLAN OF CARE Gentle IVF abx, ID follows blood culture negative stool for C. difficile negative sputum culture + cookie C, T L spine MRI revealed T9-10 discitis/, osteomyelitis; T7-10 epidural abscess with cord compression, bilateral empyema, bilateral loculated pleural effusion (R>L), severe spinal stenosis C spine ECHO with EF 55-60% no WMA, Cardiology follows patient refused NURA on ECHO difficult to visualize vegetation due to poor images repeated CT chest with bilateral loculated pleural effusion, bilateral consolidation O2 titrate, HHN follow-up chest x-ray DVT prophylaxis neuro follows, no new neuro changes quadriparesis since early August 2017 recommended transfer to higher level of care for eval and further management by spinal surgeon surgery follows after chest tube removed ( on previous admission) , wounds healing. no signs of surgical site infection. admits to left sided pain, likely healing from surgery patient signed out AMA on last hospitalization prior to completion of therapy. repeat chest CT with bilateral pleural effusion , larger on the right, possible empyema. patient declined and refused thoracentesis pain management pain specialist follows unfortunately unable to obtain spinal surgery evaluation transfer to higher level of care pending, difficulties with transfer, rogelio emergent [id number] will repeat MRI C, L T spine in am as per ID recommendations case discussed and evaluated by supervising physician Subjective Allergies: Coded Allergies: No Known Allergies (Unverified , 08/06/17) Subjective reported generalized weakness afebrile, no leucocytosis pulse ox stable on RA both legs still feeling numb. unable to stand and walk awaiting for transfer Objective Last 24 Hour Vital Signs Date Time Temp Pulse Resp B/P (MAP) Pulse Ox O2 Delivery O2 Flow Rate FiO2 09/09/17 08:03 97.4 09/09/17 08:00 97.9 79 20 112/54 (73) 96 97.9 09/09/17 04:00 97.4 76 20 104/62 (76) 94 97.4 09/09/17 00:00 97.8 78 20 104/65 (78) 96 97.8 09/08/17 21:00 Room Air 09/08/17 20:51 83 20 Room Air 21 09/08/17 20:00 98.1 81 19 107/57 (74) 94 98.1 09/08/17 16:00 97.7 75 18 112/64 (80) 96 97.7 09/08/17 12:00 99.2 75 20 117/60 (79) 95 99.2 09/08/17 09:00 Room Air Intake and Output 09/08/17 09/09/17 19:00 07:00 Intake Total 1430 ml 730 ml Output Total 1400 ml 1250 ml Balance 30 ml -520 ml Intake Oral 650 ml IV Total 780 ml 730 ml Output Urine Total 1400 ml 1250 ml Objective General Appearance: no acute distress HEENT: normocephalic, atraumatic, anicteric, mucous membranes moist Respiratory/Chest: no respiratory distress, no accessory muscle use, decreased breath sounds - at bases Cardiovascular: normal rate Abdomen: normal bowel sounds, soft, non tender, non distended Extremities: no edema, pedal pulses normal Neurologic/Psychiatric: alert, oriented x 3, responsive, other - quadriparesis Laboratory Tests 09/09/17 05:50: White Blood Count 6.8, Red Blood Count 3.31L, Hemoglobin 9.2L, Hematocrit 28.3L , Mean Corpuscular Volume 86, Mean Corpuscular Hemoglobin 27.9, Mean Corpuscular Hemoglobin Concent 32.6, Red Cell Distribution Width 15.2H, Platelet Count 249, Mean Platelet Volume 5.8L, Neutrophils (%) (Auto) 63.6, Lymphocytes (%) (Auto) 27.0, Monocytes (%) (Auto) 7.0, Eosinophils (%) (Auto) 2.0, Basophils (%) (Auto) 0.4, Sodium Level 134L, Potassium Level 4.1, Chloride Level 100, Carbon Dioxide Level 28, Anion Gap 6, Blood Urea Nitrogen 8, Creatinine 0.6, Estimat Glomerular Filtration Rate > 60, Glucose Level 99, Calcium Level 8.3L, Total Bilirubin 0.3, Direct Bilirubin 0.1, Aspartate Amino Transf (AST/SGOT) 14L, Alanine Aminotransferase (ALT/SGPT) 15, Alkaline Phosphatase 86, Total Protein 7.0, Albumin 1.9L Current Medications Medications (Trade) Dose Ordered Sig/Veronica Route PRN Reason Start Time Stop Time Status Last Admin Dose Admin Acetaminophen (Tylenol) 650 mg Q4H PRN ORAL FEVER 08/25/17 08:15 09/24/17 08:14 08/27/17 13:06 Albuterol/ Ipratropium (Albuterol/ Ipratropium) 3 ml Q4H PRN HHN Shortness of Breath 09/08/17 10:15 09/13/17 10:14 Chlorhexidine Gluconate (Nishi-Hex 2%) 1 applic DAILY@2000 TOPIC 08/29/17 20:00 09/28/17 19:59 09/08/17 21:30 Dextrose (Dextrose 50%) 25 ml STAT PRN IV Hypoglycemia 08/25/17 08:15 09/24/17 08:14 Dextrose (Dextrose 50%) 50 ml STAT PRN IV Hypoglycemia 08/25/17 08:30 09/24/17 08:29 Docusate Sodium (Colace) 100 mg THREE TIMES A DAY ORAL 08/30/17 13:00 09/29/17 12:59 09/09/17 08:03 Duloxetine HCl (Cymbalta) 30 mg DAILY ORAL 08/25/17 09:00 09/24/17 08:59 09/09/17 08:03 Gabapentin (Neurontin) 300 mg THREE TIMES A DAY ORAL 08/25/17 09:00 09/24/17 08:59 09/09/17 08:03 Gadobutrol (Gadavist) 7.5 mmol NOW PRN IV Radiology Procedure 09/08/17 13:30 09/12/17 13:18 Gadobutrol (Gadavist) 7.5 mmol NOW PRN IV Radiology Procedure 09/08/17 13:30 09/12/17 13:18 Gadobutrol (Gadavist) 7.5 mmol NOW PRN IV Radiology Procedure 09/08/17 13:30 09/12/17 13:18 Heparin Sodium (Porcine) (Heparin 5000 units/ml) 5,000 units EVERY 12 HOURS SUBQ 08/25/17 09:00 09/24/17 08:59 09/09/17 08:04 Hydromorphone HCl (Dilaudid) 1 mg Q3H PRN IVP Severe Pain (Pain Scale 7-10) 09/04/17 10:15 09/11/17 10:14 09/09/17 08:03 Lactulose (Cephulac) 30 gm QIDPRN PRN ORAL constipation 09/06/17 16:15 10/06/17 16:14 Morphine Sulfate (MS Contin) 15 mg Q8H ORAL 09/06/17 16:00 09/13/17 15:59 09/08/17 00:24 Naloxone HCl (Narcan) 0.2 mg Q2H PRN IVP respritory depression 09/06/17 16:08 10/06/17 16:07 Ondansetron HCl (Zofran) 4 mg Q6H PRN IVP Nausea & Vomiting 08/25/17 08:15 09/24/17 08:14 09/04/17 05:23 Oxacillin Sodium 2 gm/Sodium Chloride 110 ml @ 220 mls/hr Q4HR IVPB 08/25/17 21:00 10/04/17 20:59 09/09/17 08:03 Polyethylene Glycol (Miralax) 17 gm DAILYPRN PRN ORAL Constipation 08/25/17 08:15 09/24/17 08:14 09/02/17 14:38 Sodium Chloride 1,000 ml @ 50 mls/hr Q20H IV 08/26/17 13:45 09/25/17 13:44 09/08/17 19:45 Abbey Powell CERTIFIED PHARMACY TECHNICIAN Sep 09, 2017 08:30
[2017-09-09] MEDS: MS Contin 15mg tab ORAL SCH ×3 (09:10→16:28)
--- NOTE | 2017-09-09 10:50 | General Progress Note ---
Assessment/Plan Assessment/Plan (1) Left sided wall chest pain (2) Lung effusion possible empyema (3) S/p VATS (4) Intercostal Neuropathy (5) Lumbar Spondylosis (6) T9-10 discitis/osteomyelitis with epidural abscess (7) Cervical spinal stenosis We will continue Dilaudid and Morphine ER. Recommend Neurosurgical consultation as per hoe worker. D/w Dr. Stevens and he concurred. Subjective Date patient seen: Sep 09, 2017 Time patient seen: 10:00 - am Allergies: Coded Allergies: No Known Allergies (Unverified , 08/06/17) Subjective REVIEW OF SYSTEMS: Denies rash, fever, chills, sweating, dizziness, drowsiness, blurred vision, sore throat, or change in weight. No nausea, vomiting, diarrhea, or blood in the stool or urine. He is complaining of left chest wall pain and back pain. SUBJECTIVE: Patient reports that his pain has been tolerated well on the Morphine ER and Dilaudid regimen. Will be having follow up MRIs to see progression of epidural abscess he has no new complaints. Objective Last 24 Hour Vital Signs Date Time Temp Pulse Resp B/P (MAP) Pulse Ox O2 Delivery O2 Flow Rate FiO2 09/09/17 09:10 97.4 09/09/17 09:00 Room Air 09/09/17 08:33 97.4 09/09/17 08:33 97.4 09/09/17 08:03 97.4 09/09/17 08:00 97.9 79 20 112/54 (73) 96 97.9 09/09/17 04:00 97.4 76 20 104/62 (76) 94 97.4 09/09/17 00:00 97.8 78 20 104/65 (78) 96 97.8 09/08/17 21:00 Room Air 09/08/17 20:51 83 20 Room Air 21 09/08/17 20:00 98.1 81 19 107/57 (74) 94 98.1 09/08/17 16:00 97.7 75 18 112/64 (80) 96 97.7 09/08/17 12:00 99.2 75 20 117/60 (79) 95 99.2 Intake and Output 09/08/17 09/09/17 19:00 07:00 Intake Total 1430 ml 730 ml Output Total 1400 ml 1250 ml Balance 30 ml -520 ml Intake Oral 650 ml IV Total 780 ml 730 ml Output Urine Total 1400 ml 1250 ml Laboratory Tests 09/09/17 05:50: White Blood Count 6.8, Red Blood Count 3.31L, Hemoglobin 9.2L, Hematocrit 28.3L , Mean Corpuscular Volume 86, Mean Corpuscular Hemoglobin 27.9, Mean Corpuscular Hemoglobin Concent 32.6, Red Cell Distribution Width 15.2H, Platelet Count 249, Mean Platelet Volume 5.8L, Neutrophils (%) (Auto) 63.6, Lymphocytes (%) (Auto) 27.0, Monocytes (%) (Auto) 7.0, Eosinophils (%) (Auto) 2.0, Basophils (%) (Auto) 0.4, Sodium Level 134L, Potassium Level 4.1, Chloride Level 100, Carbon Dioxide Level 28, Anion Gap 6, Blood Urea Nitrogen 8, Creatinine 0.6, Estimat Glomerular Filtration Rate > 60, Glucose Level 99, Calcium Level 8.3L, Total Bilirubin 0.3, Direct Bilirubin 0.1, Aspartate Amino Transf (AST/SGOT) 14L, Alanine Aminotransferase (ALT/SGPT) 15, Alkaline Phosphatase 86, Total Protein 7.0, Albumin 1.9L Height (Feet): 5 Height (Inches): 7.00 Weight (Pounds): 166 Objective GENERAL: Alert, awake, and oriented. LUNGS: Decreased breath sounds bilaterally. HEART: S1 S2 Regular. ABDOMEN: Benign. EXTREMITIES: No cyanosis. No clubbing. No edema. NEURO: No changes. Mark Rausch Sep 09, 2017 10:50
[2017-09-09 12:00] VITALS: BP 110/57
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
[2017-09-09 16:00] VITALS: BP 100/59
--- NOTE | 2017-09-09 17:00 | General Progress Note ---
Assessment/Plan Status: stable Assessment/Plan INTERNAL MEDICINE PROGRESS NOTE Covering for Dr. Dietrich # Chronic pain. Pain management --> Pt on morphine # Hypokalemia. --> Replete potassium # HIV/AIDs --> Continue current meds # Sepsis --> Pt on abx # Epidural abscess --> MRI pending for re-eval. Assessment/Plan ot pt diet abx neph f/u cbc bmp am higher level care prn Subjective Date patient seen: Sep 09, 2017 ROS Limited/Unobtainable: Yes Allergies: Coded Allergies: No Known Allergies (Unverified , 08/06/17) All Systems: reviewed and negative except above Subjective Pt awake and alert. No acute events. No c/o pain/discomfort. MRI spine pending. Objective Last 24 Hour Vital Signs Date Time Temp Pulse Resp B/P (MAP) Pulse Ox O2 Delivery O2 Flow Rate FiO2 09/09/17 16:28 97.7 09/09/17 15:24 97.7 09/09/17 14:54 97.7 09/09/17 12:00 97.7 80 20 110/57 (74) 95 97.7 09/09/17 11:52 97.4 09/09/17 09:42 78 16 Room Air 21 09/09/17 09:10 97.4 09/09/17 09:00 Room Air 09/09/17 08:33 97.4 09/09/17 08:03 97.4 09/09/17 08:00 97.9 79 20 112/54 (73) 96 97.9 09/09/17 04:00 97.4 76 20 104/62 (76) 94 97.4 09/09/17 00:00 97.8 78 20 104/65 (78) 96 97.8 09/08/17 21:00 Room Air 09/08/17 20:51 83 20 Room Air 21 09/08/17 20:00 98.1 81 19 107/57 (74) 94 98.1 Intake and Output 09/08/17 09/09/17 19:00 07:00 Intake Total 1430 ml 730 ml Output Total 1400 ml 1250 ml Balance 30 ml -520 ml Intake Oral 650 ml IV Total 780 ml 730 ml Output Urine Total 1400 ml 1250 ml Laboratory Tests 09/09/17 05:50: White Blood Count 6.8, Red Blood Count 3.31L, Hemoglobin 9.2L, Hematocrit 28.3L , Mean Corpuscular Volume 86, Mean Corpuscular Hemoglobin 27.9, Mean Corpuscular Hemoglobin Concent 32.6, Red Cell Distribution Width 15.2H, Platelet Count 249, Mean Platelet Volume 5.8L, Neutrophils (%) (Auto) 63.6, Lymphocytes (%) (Auto) 27.0, Monocytes (%) (Auto) 7.0, Eosinophils (%) (Auto) 2.0, Basophils (%) (Auto) 0.4, Sodium Level 134L, Potassium Level 4.1, Chloride Level 100, Carbon Dioxide Level 28, Anion Gap 6, Blood Urea Nitrogen 8, Creatinine 0.6, Estimat Glomerular Filtration Rate > 60, Glucose Level 99, Calcium Level 8.3L, Total Bilirubin 0.3, Direct Bilirubin 0.1, Aspartate Amino Transf (AST/SGOT) 14L, Alanine Aminotransferase (ALT/SGPT) 15, Alkaline Phosphatase 86, Total Protein 7.0, Albumin 1.9L Height (Feet): 5 Height (Inches): 7.00 Weight (Pounds): 166 General Appearance: no apparent distress, alert EENT: PERRL/EOMI Neck: normal alignment Cardiovascular: normal peripheral pulses Respiratory/Chest: normal breath sounds Abdomen: soft Hi Cameron MD Sep 09, 2017 17:00
--- NOTE | 2017-09-09 17:15 | Progress Note ---
DATE: 09/09/2017 SUBJECTIVE: The patient is a 57-year-old male patient who has sepsis and empyema. The patient has confusion, depression, anxiety, worsened by stress of his medical illness. That is why his attending has requested daily psychiatric consultation. MENTAL STATUS EXAMINATION: This is a 57-year-old male. Appearance is disheveled. Attitude, irritable and agitated. Affect is guarded and restricted. Intellect poor. Mood is depressed and anxious. Motor activity, psychomotor agitation. Attention span is poor. Orientation x2. Speech is pressured. Thought process, disorganized and illogical. Insight and judgement is poor. DIAGNOSIS: Major depressive disorder, mild, recurrent without psychotic features. PLAN: Cymbalta 30 mg a day and Neurontin 300 mg a day. A 18-20 minutes of cognitive behavioral therapy has been provided . Chart reviewed. Discussed with staff. Gudelia Villa M.D. DR: SAMM JOB#: [id number] CC:
[2017-09-09 20:00] VITALS: BP 112/61
[2017-09-09] MEDS: Dyna-Hex 2% Top Sol 2oz TOPIC SCH (20:00)
--- NOTE | 2017-09-09 23:09 | Cardiology Progress Note ---
Assessment/Plan Assessment/Plan 1. Bacteremia, not willing to undergo NURA, TTE lacks sensitivity for detecting vegetations. 2. s/p VATS 3. Epidural abscess 4. COPD Subjective Subjective No cardiac events. Not on the tele bed. Objective Last 24 Hour Vital Signs Date Time Temp Pulse Resp B/P (MAP) Pulse Ox O2 Delivery O2 Flow Rate FiO2 09/09/17 20:00 99.9 82 19 112/61 (78) 95 99.9 09/09/17 18:28 97.7 09/09/17 17:58 97.7 09/09/17 17:27 97.7 09/09/17 16:28 97.7 09/09/17 16:00 97.2 87 20 100/59 (73) 95 97.2 09/09/17 14:54 97.7 09/09/17 12:00 97.7 80 20 110/57 (74) 95 97.7 09/09/17 11:52 97.4 09/09/17 09:42 78 16 Room Air 21 09/09/17 09:10 97.4 09/09/17 09:00 Room Air 09/09/17 08:03 97.4 09/09/17 08:00 97.9 79 20 112/54 (73) 96 97.9 09/09/17 04:00 97.4 76 20 104/62 (76) 94 97.4 09/09/17 00:00 97.8 78 20 104/65 (78) 96 97.8 Intake and Output 09/08/17 09/09/17 19:00 07:00 Intake Total 1430 ml 730 ml Output Total 1400 ml 1250 ml Balance 30 ml -520 ml Intake Oral 650 ml IV Total 780 ml 730 ml Output Urine Total 1400 ml 1250 ml 2D Echo: LVEF 55-60%, Grade I LVDD Laboratory Tests Test 09/09/17 05:50 White Blood Count 6.8 K/UL (4.8-10.8) Red Blood Count 3.31 M/UL (4.70-6.10) L Hemoglobin 9.2 G/DL (14.2-18.0) L Hematocrit 28.3 % (42.0-52.0) L Mean Corpuscular Volume 86 FL (80-99) Mean Corpuscular Hemoglobin 27.9 PG (27.0-31.0) Mean Corpuscular Hemoglobin Concent 32.6 G/DL (32.0-36.0) Red Cell Distribution Width 15.2 % (11.6-14.8) H Platelet Count 249 K/UL (150-450) Mean Platelet Volume 5.8 FL (6.5-10.1) L Neutrophils (%) (Auto) 63.6 % (45.0-75.0) Lymphocytes (%) (Auto) 27.0 % (20.0-45.0) Monocytes (%) (Auto) 7.0 % (1.0-10.0) Eosinophils (%) (Auto) 2.0 % (0.0-3.0) Basophils (%) (Auto) 0.4 % (0.0-2.0) Sodium Level 134 MMOL/L (136-145) L Potassium Level 4.1 MMOL/L (3.5-5.1) Chloride Level 100 MMOL/L (98-107) Carbon Dioxide Level 28 MMOL/L (21-32) Anion Gap 6 mmol/L (5-15) Blood Urea Nitrogen 8 mg/dL (7-18) Creatinine 0.6 MG/DL (0.55-1.30) Estimat Glomerular Filtration Rate > 60 mL/min (>60) Glucose Level 99 MG/DL (74-106) Calcium Level 8.3 MG/DL (8.5-10.1) L Total Bilirubin 0.3 MG/DL (0.2-1.0) Direct Bilirubin 0.1 MG/DL (0.0-0.3) Aspartate Amino Transf (AST/SGOT) 14 U/L (15-37) L Alanine Aminotransferase (ALT/SGPT) 15 U/L (12-78) Alkaline Phosphatase 86 U/L (46-116) Total Protein 7.0 G/DL (6.4-8.2) Albumin 1.9 G/DL (3.4-5.0) L Objective HEENT: Normocephalic, atraumatic, PERRLA, EOMI, No pale conjunctivae. No icterus. NECK: No JVD, no carotid bruit. CHEST: Normal breath sounds HEART: Normal S1 and S2, no murmurs, gallops or rubs. ABDOMEN: Soft and nontender, no hepatosplenomegaly, + BS. BACK: The patient has tenderness in the lower thoracic and lumbar area. EXTREMITIES: No edema , clubbing or cyanosis. Omid Tellez MD Sep 09, 2017 23:09
[2017-09-10] VITALS: BP 112/60
[2017-09-10] MEDS: HYDROmorphone 1mg/ml Carpuject IVP PRN ×7 (00:17→21:48)
[2017-09-10] MEDS: Oxacillin 2 GM in NS 110 ML IVPB SCH ×6 (01:20→21:14)
[2017-09-10] MEDS: MS Contin 15mg tab ORAL SCH ×3 (01:21→16:26)
[2017-09-10 04:00] VITALS: BP 107/58
[2017-09-10 07:07] LABS: BASOPHILS % (AUTO) 0.5 % (0.0-2.0); EOSINOPHILS % (AUTO) 2.5 % (0.0-3.0); HEMATOCRIT 28.3 % (42.0-52.0); MEAN CORPUSCULAR VOLUME 87 FL (80-99); MONOCYTES % (AUTO) 7.1 % (1.0-10.0); NEUTROPHILS % (AUTO) 54.8 % (45.0-75.0); PLATELET COUNT 221 K/UL (150-450); RED BLOOD COUNT 3.27 M/UL (4.70-6.10); RED CELL DISTRIBUTION WIDTH 14.4 % (11.6-14.8)
[2017-09-10 07:47] LABS: ANION GAP 7 mmol/L (5-15); BLOOD UREA NITROGEN 6 mg/dL (7-18); CALCIUM 8.5 MG/DL (8.5-10.1); CARBON DIOXIDE 27 MMOL/L (21-32); CHLORIDE 102 MMOL/L (98-107); CREATININE 0.5 MG/DL (0.55-1.30); SODIUM 136 MMOL/L (136-145)
[2017-09-10 08:00] VITALS: BP 101/57
[2017-09-10] MEDS: DULoxetine 30mg cap ORAL SCH (08:50)
[2017-09-10] MEDS: Heparin 5000 units/ml inj SUBQ SCH ×2 (08:53→21:16)
[2017-09-10] MEDS: Docusate 100mg cap ORAL SCH ×3 (08:53→17:25)
--- NOTE | 2017-09-10 10:19 | Infectious Diseases Prog Note ---
Assessment/Plan Assessment/Plan The patient is a 56-year-old male with multiple medical problems, who has recent empyema/bacteremia due to methicillin-sensitive Staphylococcus aureus ( Signed off AMA on 08/18/17 and had incomplete treatment; only 10 day of 42) -CT chest 08/25: Increased size of loculated right pleural effusion. Small air in the pleural space. Smaller residual left loculated pleural fluid with small air. Small to moderate fluid collection now in the left fissure. Bilateral lower lobe atelectasis/consolidations and air space disease,similar. -s/p VATS, partial pleurectomy, decortication 08/14 -OR findings : Bronchoscopy: A minimal amount of mucopurulent secretion was lavaged and suctioned clear. No endobronchial lesions. -VATS: There were noted to be numerous adhesions tethering along to the surrounding chest wall. The disease appears to be localized in the left lower lobe as the left upper lobe was virtually spared. - OR cx MSSA -CT chest 08/10: Left pleural effusion. Scalloped appearance suggests loculation. Presence of gas bubbles suggest infection by gas-forming organism. Gas bubbles appear trapped within the fluid rather than floating nondependently , indicating the fluid may be highly viscous. - -08/07 Bcx 4/4 MSSA; 08/08 4/4+; 08/10 2/4 +; 08/11 2/4+; 08/13 Neg x4; Bcx 08/27 Negx4; 08/30 Neg -08/28 ESR 126 <86 (08/10), CRP 12 < 27 (08/09) Mild leukocytosis, recurrent- resolved Low grade fever, intermittent; resolved Probable endocarditis (NURA was not done). Thoracic Discitis/Osteomyelitis and epidural abscess T7-T10- causing spinal cord compression; Possible Cervical spodylodiscitis w/ cord compression > Quadriparesis -MRI Cervical spine: Disc narrowing at C5-6. Marrow edema of the adjacent C5 and C6 vertebral bodies is noted. This is most likely due to Modic type I degenerative change and reactive marrow edema, particularly given the absence of edema within the disc. However, the possibility of spondylodiscitis as etiology of this finding, particularly in view of recent diagnosis of thoracic epidural abscess and in view of the slight degree of surrounding soft tissue edema, should also be considered. Severe spinal stenosis with cord compression at multiple levels extending from C3-4 through C5-6. Minimum AP dimension of the spinal canal 5 mm. Due to image degradation, it is uncertain as to whether there is significant cord edema/myelomalacia present. Multilevel severe neural foraminal stenosis as detailed level by level basis above -MRI Thoracic Spine: Suspicion of cord compression T7-T10 secondary to a posterior epidural abscess versus mass. Abscess favored given suspicion of spondylodiscitis at T9-10 as well as bilateral pleural effusions and pneumonia ( recent diagnosed on CT chest). Significantly limited study due to motion. -MRI Lumbar spine: Evidence of T9-10 discitis/osteomyelitis. Suspect related to previously described adjacent bilateral pleural empyemas. Evidence of epidural abscess measuring at least 8 x 11 mm in diameter, and extending at least 5 cm craniocaudad, at and above the T9 level. This results in significant spinal stenosis. Note that it is incompletely included in the imaging volume, and the cephalad extent above mid T7 is unclear. Recommend thoracic MRI for further evaluation. As mentioned above, evidence of bilateral empyemas, with bilateral loculated pleural fluid collections and extensive enhancement and edema of the adjacent soft tissue. Extensive multilevel degenerative changes elsewhere, as detailed on a level by level basis above Polysubstance abuse- refers last IVDA was ~7 yrs ago -UDS (prior admission) +THC, cocaine and amphetamines HIV - non progressor- per patient, never on Tx and CD4 >500 and UD VL -07/2017 CD4 510 (39.2%), VL ND Hep C s/p tx (20 years ago) with sustained virologic response COPD/asthma tobacco abuse (stopped smoking 3d [employer]) PLAN: -. The patient is on oxacillin day # 17/42-56 (the patient received 11 days of treatment prior to discharge). -monitor LFTs -08/25 SP IV Vanco and Cefepme #2 -08/18 SP IV Oxacillin #9 -08/10 SP Ceftriaxone d# 5 and IV Vancomycin #3 -08/06 SP Cefepime x1, Levaquin x1 -. Monitor CBC/CMP, temperatures -* NEEDS EMERGENT transfer to tertiary hospital for neurosurgical evaluation for epidural abscess and thoracic discitis and OM as it causing spinal cord compression -awaiting transfer: having too much difficulty finding an accepting facility * -Needs also further chest drainage; currently refusing -will also need NURA to eval for endocarditis/valvular abscess ( pt refused ) -Repeat MRI w/wo C, T, L spine pending Subjective Allergies: Coded Allergies: No Known Allergies (Unverified , 08/06/17) Subjective Patient with continue numbness of his lower extremities No N/V/D or fever Objective Vital Signs Last 24 Hour Vital Signs Date Time Temp Pulse Resp B/P (MAP) Pulse Ox O2 Delivery O2 Flow Rate FiO2 09/10/17 08:50 98.5 09/10/17 07:58 80 18 Room Air 21 09/10/17 04:00 98.5 75 17 107/58 (74) 96 98.5 09/10/17 00:00 98.7 74 16 112/60 (77) 95 98.7 09/09/17 21:00 Room Air 09/09/17 20:00 99.9 82 19 112/61 (78) 95 99.9 09/09/17 19:03 82 18 Room Air 21 09/09/17 18:28 97.7 09/09/17 17:58 97.7 09/09/17 17:27 97.7 09/09/17 16:28 97.7 09/09/17 16:00 97.2 87 20 100/59 (73) 95 97.2 09/09/17 14:54 97.7 09/09/17 12:00 97.7 80 20 110/57 (74) 95 97.7 09/09/17 11:52 97.4 Height (Feet): 5 Height (Inches): 7.00 Weight (Pounds): 166 Objective HEENT: No pale conjunctivae. No icterus. NECK: No lymphadenopathy. CHEST: Clear. Incision site is healing. HEART: S1 and S2. ABDOMEN: Soft and nontender. BACK: The patient has tenderness in the lower thoracic and lumbar area. EXTREMITIES: No cyanosis. NEUROLOGIC: Awake and alert. +Babinski, brisk reflexes, LE>UE weakness. Numbness of lower ext B/L Laboratory Tests Test 09/10/17 05:47 White Blood Count 6.0 K/UL (4.8-10.8) Red Blood Count 3.27 M/UL (4.70-6.10) L Hemoglobin 9.0 G/DL (14.2-18.0) L Hematocrit 28.3 % (42.0-52.0) L Mean Corpuscular Volume 87 FL (80-99) Mean Corpuscular Hemoglobin 27.6 PG (27.0-31.0) Mean Corpuscular Hemoglobin Concent 31.9 G/DL (32.0-36.0) L Red Cell Distribution Width 14.4 % (11.6-14.8) Platelet Count 221 K/UL (150-450) Mean Platelet Volume 5.7 FL (6.5-10.1) L Neutrophils (%) (Auto) 54.8 % (45.0-75.0) Lymphocytes (%) (Auto) 35.0 % (20.0-45.0) Monocytes (%) (Auto) 7.1 % (1.0-10.0) Eosinophils (%) (Auto) 2.5 % (0.0-3.0) Basophils (%) (Auto) 0.5 % (0.0-2.0) Sodium Level 136 MMOL/L (136-145) Potassium Level 4.0 MMOL/L (3.5-5.1) Chloride Level 102 MMOL/L (98-107) Carbon Dioxide Level 27 MMOL/L (21-32) Anion Gap 7 mmol/L (5-15) Blood Urea Nitrogen 6 mg/dL (7-18) L Creatinine 0.5 MG/DL (0.55-1.30) L Estimat Glomerular Filtration Rate > 60 mL/min (>60) Glucose Level 85 MG/DL (74-106) Calcium Level 8.5 MG/DL (8.5-10.1) Current Medications Medications (Trade) Dose Ordered Sig/Veronica Route PRN Reason Start Time Stop Time Status Last Admin Dose Admin Acetaminophen (Tylenol) 650 mg Q4H PRN ORAL FEVER 08/25/17 08:15 09/24/17 08:14 08/27/17 13:06 Albuterol/ Ipratropium (Albuterol/ Ipratropium) 3 ml Q4H PRN HHN Shortness of Breath 09/08/17 10:15 09/13/17 10:14 Chlorhexidine Gluconate (Nishi-Hex 2%) 1 applic DAILY@2000 TOPIC 08/29/17 20:00 09/28/17 19:59 09/08/17 21:30 Dextrose (Dextrose 50%) 25 ml STAT PRN IV Hypoglycemia 08/25/17 08:15 09/24/17 08:14 Dextrose (Dextrose 50%) 50 ml STAT PRN IV Hypoglycemia 08/25/17 08:30 09/24/17 08:29 Docusate Sodium (Colace) 100 mg THREE TIMES A DAY ORAL 08/30/17 13:00 09/29/17 12:59 09/09/17 08:03 Duloxetine HCl (Cymbalta) 30 mg DAILY ORAL 08/25/17 09:00 09/24/17 08:59 09/10/17 08:50 Gabapentin (Neurontin) 300 mg THREE TIMES A DAY ORAL 08/25/17 09:00 09/24/17 08:59 09/10/17 08:50 Gadobutrol (Gadavist) 7.5 mmol NOW PRN IV Radiology Procedure 09/08/17 13:30 09/12/17 13:18 Gadobutrol (Gadavist) 7.5 mmol NOW PRN IV Radiology Procedure 09/08/17 13:30 09/12/17 13:18 Gadobutrol (Gadavist) 7.5 mmol NOW PRN IV Radiology Procedure 09/08/17 13:30 09/12/17 13:18 Heparin Sodium (Porcine) (Heparin 5000 units/ml) 5,000 units EVERY 12 HOURS SUBQ 08/25/17 09:00 09/24/17 08:59 09/10/17 08:53 Hydromorphone HCl (Dilaudid) 1 mg Q3H PRN IVP Severe Pain (Pain Scale 7-10) 09/04/17 10:15 09/11/17 10:14 09/10/17 09:52 Lactulose (Cephulac) 30 gm QIDPRN PRN ORAL constipation 09/06/17 16:15 10/06/17 16:14 Morphine Sulfate (MS Contin) 15 mg Q8H ORAL 09/06/17 16:00 09/13/17 15:59 09/10/17 08:50 Naloxone HCl (Narcan) 0.2 mg Q2H PRN IVP respritory depression 09/06/17 16:08 10/06/17 16:07 Ondansetron HCl (Zofran) 4 mg Q6H PRN IVP Nausea & Vomiting 08/25/17 08:15 09/24/17 08:14 09/04/17 05:23 Oxacillin Sodium 2 gm/Sodium Chloride 110 ml @ 220 mls/hr Q4HR IVPB 08/25/17 21:00 10/04/17 20:59 09/10/17 08:51 Polyethylene Glycol (Miralax) 17 gm DAILYPRN PRN ORAL Constipation 08/25/17 08:15 09/24/17 08:14 09/02/17 14:38 Sodium Chloride 1,000 ml @ 50 mls/hr Q20H IV 08/26/17 13:45 09/25/17 13:44 09/09/17 17:33 Murali Laguna M.D. Sep 10, 2017 10:19
--- NOTE | 2017-09-10 10:56 | Diagnostic Imaging Report ---
Indication: Cough Technique: One view of the chest Comparison: 08/24/2017 Findings: Band of scarring in the left perihilar region is again demonstrated. The lungs and pleural spaces are otherwise clear. There is a left arm PICC present, not evident previously. The heart size is normal Impression: No acute process
[2017-09-10 12:00] VITALS: BP 110/60
--- NOTE | 2017-09-10 14:05 | General Progress Note ---
Assessment/Plan Status: stable Assessment/Plan INTERNAL MEDICINE PROGRESS NOTE Covering for Dr. Dietrich # Chronic pain. Pain management --> Pt on morphine # Hypokalemia. --> Replete potassium # HIV/AIDs --> Continue current meds # Sepsis --> Pt on abx # Epidural abscess --> MRI 09/10, results pending. Assessment/Plan ot pt diet abx neph f/u cbc bmp am higher level care prn Subjective Date patient seen: Sep 10, 2017 ROS Limited/Unobtainable: Yes Allergies: Coded Allergies: No Known Allergies (Unverified , 08/06/17) All Systems: reviewed and negative except above Subjective Pt awake and alert. MRI results pending. PICC line removal ordered. CXR today shows no acute process. Objective Last 24 Hour Vital Signs Date Time Temp Pulse Resp B/P (MAP) Pulse Ox O2 Delivery O2 Flow Rate FiO2 09/10/17 13:51 98.5 09/10/17 09:49 98.5 09/10/17 09:00 Room Air 09/10/17 08:50 98.5 09/10/17 08:00 97.5 72 20 101/57 (72) 96 97.5 09/10/17 07:58 80 18 Room Air 21 09/10/17 04:00 98.5 75 17 107/58 (74) 96 98.5 09/10/17 00:00 98.7 74 16 112/60 (77) 95 98.7 09/09/17 21:00 Room Air 09/09/17 20:00 99.9 82 19 112/61 (78) 95 99.9 09/09/17 19:03 82 18 Room Air 21 09/09/17 17:58 97.7 09/09/17 16:28 97.7 09/09/17 16:00 97.2 87 20 100/59 (73) 95 97.2 09/09/17 14:54 97.7 Intake and Output 09/09/17 09/10/17 19:00 07:00 Intake Total 290 ml 1080 ml Output Total 1700 ml 1750 ml Balance -1410 ml -670 ml Intake Oral 240 ml 300 ml IV Total 50 ml 780 ml Output Urine Total 1700 ml 1750 ml Laboratory Tests 09/10/17 05:47: White Blood Count 6.0, Red Blood Count 3.27L, Hemoglobin 9.0L, Hematocrit 28.3L , Mean Corpuscular Volume 87, Mean Corpuscular Hemoglobin 27.6, Mean Corpuscular Hemoglobin Concent 31.9L, Red Cell Distribution Width 14.4, Platelet Count 221, Mean Platelet Volume 5.7L, Neutrophils (%) (Auto) 54.8, Lymphocytes (%) (Auto) 35.0, Monocytes (%) (Auto) 7.1, Eosinophils (%) (Auto) 2.5, Basophils (%) (Auto) 0.5, Sodium Level 136, Potassium Level 4.0, Chloride Level 102, Carbon Dioxide Level 27, Anion Gap 7, Blood Urea Nitrogen 6L, Creatinine 0.5L, Estimat Glomerular Filtration Rate > 60, Glucose Level 85, Calcium Level 8.5 Height (Feet): 5 Height (Inches): 7.00 Weight (Pounds): 166 General Appearance: no apparent distress EENT: PERRL/EOMI Neck: normal alignment Cardiovascular: normal peripheral pulses Respiratory/Chest: no respiratory distress Abdomen: soft Hi Cameron MD Sep 10, 2017 14:05
[2017-09-10] MEDS ORDERED: Lidocaine 1% Plain 30 ml INJ PRN (14:30)
[2017-09-10] MEDS ORDERED: Heparin 2000 units/Ns 1000ml INJ PRN (14:30)
--- NOTE | 2017-09-10 14:33 | Pulmonology Progress Note ---
Assessment/Plan Problems: (1) Epidural abscess (2) Sepsis (3) Osteomyelitis (4) COPD (chronic obstructive pulmonary disease) (5) Hypoalbuminemia (6) Hepatitis C (7) HIV (human immunodeficiency virus infection) (8) Pleural effusion Assessment/Plan awaiting repeat MRI pain management no new complains spine surgery evaluation can not be done at this facility iv abx, ID note appreciated check electrolytes symptomatic treatment transfer to higher level of care Subjective ROS Limited/Unobtainable: No Constitutional: Reports: no symptoms HEENT: Repors: no symptoms Respiratory: Reports: no symptoms Allergies: Coded Allergies: No Known Allergies (Unverified , 08/06/17) Objective Last 24 Hour Vital Signs Date Time Temp Pulse Resp B/P (MAP) Pulse Ox O2 Delivery O2 Flow Rate FiO2 09/10/17 13:51 98.5 09/10/17 09:49 98.5 09/10/17 09:00 Room Air 09/10/17 08:50 98.5 09/10/17 08:00 97.5 72 20 101/57 (72) 96 97.5 09/10/17 07:58 80 18 Room Air 21 09/10/17 04:00 98.5 75 17 107/58 (74) 96 98.5 09/10/17 00:00 98.7 74 16 112/60 (77) 95 98.7 09/09/17 21:00 Room Air 09/09/17 20:00 99.9 82 19 112/61 (78) 95 99.9 09/09/17 19:03 82 18 Room Air 21 09/09/17 17:58 97.7 09/09/17 16:28 97.7 09/09/17 16:00 97.2 87 20 100/59 (73) 95 97.2 09/09/17 14:54 97.7 Intake and Output 09/09/17 09/10/17 19:00 07:00 Intake Total 290 ml 1080 ml Output Total 1700 ml 1750 ml Balance -1410 ml -670 ml Intake Oral 240 ml 300 ml IV Total 50 ml 780 ml Output Urine Total 1700 ml 1750 ml General Appearance: WD/WN HEENT: normocephalic, atraumatic Respiratory/Chest: chest wall non-tender, lungs clear Cardiovascular: normal peripheral pulses, normal rate Genitourinary: normal external genitalia Extremities: no cyanosis Skin: no rash Laboratory Tests 09/10/17 05:47: White Blood Count 6.0, Red Blood Count 3.27L, Hemoglobin 9.0L, Hematocrit 28.3L , Mean Corpuscular Volume 87, Mean Corpuscular Hemoglobin 27.6, Mean Corpuscular Hemoglobin Concent 31.9L, Red Cell Distribution Width 14.4, Platelet Count 221, Mean Platelet Volume 5.7L, Neutrophils (%) (Auto) 54.8, Lymphocytes (%) (Auto) 35.0, Monocytes (%) (Auto) 7.1, Eosinophils (%) (Auto) 2.5, Basophils (%) (Auto) 0.5, Sodium Level 136, Potassium Level 4.0, Chloride Level 102, Carbon Dioxide Level 27, Anion Gap 7, Blood Urea Nitrogen 6L, Creatinine 0.5L, Estimat Glomerular Filtration Rate > 60, Glucose Level 85, Calcium Level 8.5 Current Medications Medications (Trade) Dose Ordered Sig/Veronica Route PRN Reason Start Time Stop Time Status Last Admin Dose Admin Acetaminophen (Tylenol) 650 mg Q4H PRN ORAL FEVER 08/25/17 08:15 09/24/17 08:14 08/27/17 13:06 Albuterol/ Ipratropium (Albuterol/ Ipratropium) 3 ml Q4H PRN HHN Shortness of Breath 09/08/17 10:15 09/13/17 10:14 Chlorhexidine Gluconate (Nishi-Hex 2%) 1 applic DAILY@1999 TOPIC 08/29/17 20:00 09/28/17 19:59 09/08/17 21:30 Chlorhexidine Gluconate (Nishi-Hex 2%) 1 applic DAILY@1999 TOPIC 09/10/17 20:00 10/10/17 19:59 Dextrose (Dextrose 50%) 25 ml STAT PRN IV Hypoglycemia 08/25/17 08:15 09/24/17 08:14 Dextrose (Dextrose 50%) 50 ml STAT PRN IV Hypoglycemia 08/25/17 08:30 09/24/17 08:29 Docusate Sodium (Colace) 100 mg THREE TIMES A DAY ORAL 08/30/17 13:00 09/29/17 12:59 09/09/17 08:03 Duloxetine HCl (Cymbalta) 30 mg DAILY ORAL 08/25/17 09:00 09/24/17 08:59 09/10/17 08:50 Gabapentin (Neurontin) 300 mg THREE TIMES A DAY ORAL 08/25/17 09:00 09/24/17 08:59 09/10/17 13:20 Gadobutrol (Gadavist) 7.5 mmol NOW PRN IV Radiology Procedure 09/08/17 13:30 09/12/17 13:18 Gadobutrol (Gadavist) 7.5 mmol NOW PRN IV Radiology Procedure 09/08/17 13:30 09/12/17 13:18 Gadobutrol (Gadavist) 7.5 mmol NOW PRN IV Radiology Procedure 09/08/17 13:30 09/12/17 13:18 Heparin Sodium (Porcine) (Heparin 5000 units/ml) 5,000 units EVERY 12 HOURS SUBQ 08/25/17 09:00 09/24/17 08:59 09/10/17 08:53 Heparin Sodium/ Sodium Chloride (Heparin 2000 units/Ns 1000ml premix) 2,000 unit ONCE PRN INJ PICC PLACEMENT 09/10/17 14:30 09/10/17 23:59 Hydromorphone HCl (Dilaudid) 1 mg Q3H PRN IVP Severe Pain (Pain Scale 7-10) 09/04/17 10:15 09/11/17 10:14 09/10/17 13:21 Lactulose (Cephulac) 30 gm QIDPRN PRN ORAL constipation 09/06/17 16:15 10/06/17 16:14 Lidocaine HCl (Xylocaine 1% 30ml) 30 ml ONCE PRN INJ PICC PLACEMENT 09/10/17 14:30 09/10/17 23:59 Morphine Sulfate (MS Contin) 15 mg Q8H ORAL 09/06/17 16:00 09/13/17 15:59 09/10/17 08:50 Naloxone HCl (Narcan) 0.2 mg Q2H PRN IVP respritory depression 09/06/17 16:08 10/06/17 16:07 Ondansetron HCl (Zofran) 4 mg Q6H PRN IVP Nausea & Vomiting 08/25/17 08:15 09/24/17 08:14 09/04/17 05:23 Oxacillin Sodium 2 gm/Sodium Chloride 110 ml @ 220 mls/hr Q4HR IVPB 08/25/17 21:00 10/04/17 20:59 09/10/17 13:21 Polyethylene Glycol (Miralax) 17 gm DAILYPRN PRN ORAL Constipation 08/25/17 08:15 09/24/17 08:14 09/02/17 14:38 Sodium Chloride 1,000 ml @ 50 mls/hr Q20H IV 08/26/17 13:45 09/25/17 13:44 09/10/17 13:53 Sally Cox MD Sep 10, 2017 14:33
--- NOTE | 2017-09-10 14:54 | General Progress Note ---
Assessment/Plan Assessment/Plan (1) Left sided wall chest pain (2) Lung effusion possible empyema (3) S/p VATS (4) Intercostal Neuropathy (5) Lumbar Spondylosis (6) T9-10 discitis/osteomyelitis with epidural abscess (7) Cervical spinal stenosis We will continue Dilaudid and Morphine ER. Stat dose of 1mg Dilaudid IV ordered for the patient. Recommend Neurosurgical consultation as per editor publications. D/w Dr. Stevens and he concurred. Subjective Date patient seen: Sep 10, 2017 Time patient seen: 02:30 - pm Allergies: Coded Allergies: No Known Allergies (Unverified , 08/06/17) Subjective REVIEW OF SYSTEMS: Denies rash, fever, chills, sweating, dizziness, drowsiness, blurred vision, sore throat, or change in weight. No nausea, vomiting, diarrhea, or blood in the stool or urine. He is complaining of left chest wall pain and back pain. SUBJECTIVE: Patient is c/o severe pain s/p MRI of Cervical, thoracic and lumbar spine to reassess the extent of epidural abscess. Objective Last 24 Hour Vital Signs Date Time Temp Pulse Resp B/P (MAP) Pulse Ox O2 Delivery O2 Flow Rate FiO2 09/10/17 13:51 98.5 09/10/17 09:49 98.5 09/10/17 09:00 Room Air 09/10/17 08:50 98.5 09/10/17 08:00 97.5 72 20 101/57 (72) 96 97.5 09/10/17 07:58 80 18 Room Air 21 09/10/17 04:00 98.5 75 17 107/58 (74) 96 98.5 09/10/17 00:00 98.7 74 16 112/60 (77) 95 98.7 09/09/17 21:00 Room Air 09/09/17 20:00 99.9 82 19 112/61 (78) 95 99.9 09/09/17 19:03 82 18 Room Air 21 09/09/17 17:58 97.7 09/09/17 16:28 97.7 09/09/17 16:00 97.2 87 20 100/59 (73) 95 97.2 09/09/17 14:54 97.7 Intake and Output 09/09/17 09/10/17 19:00 07:00 Intake Total 290 ml 1080 ml Output Total 1700 ml 1750 ml Balance -1410 ml -670 ml Intake Oral 240 ml 300 ml IV Total 50 ml 780 ml Output Urine Total 1700 ml 1750 ml Laboratory Tests 09/10/17 05:47: White Blood Count 6.0, Red Blood Count 3.27L, Hemoglobin 9.0L, Hematocrit 28.3L , Mean Corpuscular Volume 87, Mean Corpuscular Hemoglobin 27.6, Mean Corpuscular Hemoglobin Concent 31.9L, Red Cell Distribution Width 14.4, Platelet Count 221, Mean Platelet Volume 5.7L, Neutrophils (%) (Auto) 54.8, Lymphocytes (%) (Auto) 35.0, Monocytes (%) (Auto) 7.1, Eosinophils (%) (Auto) 2.5, Basophils (%) (Auto) 0.5, Sodium Level 136, Potassium Level 4.0, Chloride Level 102, Carbon Dioxide Level 27, Anion Gap 7, Blood Urea Nitrogen 6L, Creatinine 0.5L, Estimat Glomerular Filtration Rate > 60, Glucose Level 85, Calcium Level 8.5 Height (Feet): 5 Height (Inches): 7.00 Weight (Pounds): 166 Objective GENERAL: Alert, awake, and oriented. LUNGS: Decreased breath sounds bilaterally. HEART: S1 S2 Regular. ABDOMEN: Benign. EXTREMITIES: No cyanosis. No clubbing. No edema. NEURO: No changes. Mark Rausch Sep 10, 2017 14:54
[2017-09-10] MEDS ORDERED: HYDROmorphone 1mg/ml Carpuject IVP SCH (15:00)
[2017-09-10 16:00] VITALS: BP 110/53
--- NOTE | 2017-09-10 16:38 | Diagnostic Imaging Report ---
Indication: Back pain, infectious spondylitis demonstrated on prior imaging studies Technique: Sagittal T1 fast spin echo, sagittal T2 FRFSE, sagittal STIR, axial T2 FRFSE, axial T1, axial T2 disc slices, precontrast axial T1 fat saturated, postcontrast axial and sagittal T1 fat saturated images obtained of the lumbar spine axial T1 Comparison: 08/27/2017 Findings: Previous study included abnormalities of the lower thoracic spine which are discussed on a separate thoracic spine MRI report. There are extensive Modic type II marrow changes extending from L2 through S1. There is no evidence of marrow edema. There is a small round signal abnormality in L1, which is high signal on all sequences including STIR, in retrospect evident previously. This also enhances slightly. There is some fluid within the L2-3 disc, which is narrowed. However, there is no evidence of associated endplate edema or disc enhancement. There is endplate irregularity at this level. Minimal fluid is also again seen within the L5-S1 disc. The bony alignment is normal. The conus medullaris terminates at the top of L1. At L1-2, there is marked facet hypertrophy, which results in mild narrowing of the spinal canal and mild narrowing of the left neural foramen. Some facet hypertrophy on the right also narrows the neural foramen slightly. At L2-3, there is degenerative disc narrowing. There is circumferential annular bulge as well as bilateral intraforaminal disc protrusion. This results in moderate narrowing of the spinal canal, compromise of the bilateral lateral recesses, and at least mild compromise of the bilateral neural foramina. At L3-4, there is mild circumferential annular bulge. This, in combination with facet and ligament flavum hypertrophy, results in mild narrowing of the spinal canal. There is mild bilateral neural foraminal stenosis at this level. At L4-5, circumferential annular bulge, posterior osteophytes, facet and ligament flavum hypertrophy and short pedicles result in moderate to severe narrowing of the spinal canal. There is also moderate to severe narrowing of the bilateral neural foramina. At L5-S1, there is minimal circumferential annular bulge. There is mild narrowing of the spinal canal, predominantly in the transverse dimension and predominantly due to facet hypertrophy. There is moderate to severe narrowing of the left neural foramen and moderate narrowing of the right neural foramen. Impression: No definite acute abnormality 1 cm diameter focus of abnormal signal within the L1 vertebral body, as described. Most likely an atypical hemangioma, but neoplastic etiology cannot be completely ruled out. Multilevel degenerative changes, as detailed on a level by level basis above. Note moderate to severe spinal stenosis at L4-5
--- NOTE | 2017-09-10 17:01 | Diagnostic Imaging Report ---
Indication: Neck pain, back pain, history of thoracic spondylitis Technique: Sagittal T1 FLAIR, sagittal T2 FRFSE, sagittal STIR, axial T2 FRFSE, axial 3-D COSMIC ASPIR, post contrast sagittal T1 fast spin echo, postcontrast sagittal T1 FLAIR, postcontrast axial T1 FSE images of the cervical spine Comparison: Noncontrast study dated 08/29/2017 Findings: There is slight degradation of imaging quality, particularly the axial images, due to motion artifact, although this is less severe than on the prior study. There is slight reversal of the normal cervical lordosis. Otherwise normal bony alignment. There is decreased T1 and increased T2 signal within the C5 and C6 vertebral bodies, associated with a very narrow disc and probably representing Modic type I marrow changes. The intrinsic cord signal is normal At C2-3, the disc space is preserved. No evidence of significant neural foraminal stenosis or spinal stenosis. At C3-4, the disc is slightly narrowed.. However, there is central and especially right paracentral disc protrusion, which results in moderate to severe narrowing of the spinal canal, impingement upon the cord, and impingement upon the right lateral recess. Minimum AP dimension of the central canal is 5 mm There is moderate to severe bilateral neural foraminal stenosis at this level. At C4-5, there is mild narrowing of the disc there is circumferential annular bulge. This, in combination with short pedicles, results in moderate to severe narrowing of the spinal canal, minimum AP dimension 6 mm. There is mild impingement upon the cord at this level. There is also likely impingement upon the bilateral lateral recesses. There is severe bilateral neural foraminal stenosis at this level. At C5-6, there is severe narrowing of the disc. As mentioned earlier, there is slight enhancement of the adjacent vertebral bodies, but no significant disc enhancement is demonstrated. Posterior disc bulge and osteophyte complex at this level results in moderate to severe spinal stenosis, with impingement on the cord, in narrowing of the spinal canal to 5 mm minimum AP dimension. There is severe bilateral neural foraminal stenosis at this level. At C6-7, there is right paracentral disc protrusion, which does not significantly narrow the spinal canal but doesn't impinge upon the right lateral recess. There is moderate left and severe right neural foraminal stenosis. At C7-T1, no significant disc bulge or protrusion, spinal stenosis, or neural foraminal stenosis. There is a thin sliver of edema of the prevertebral fat anterior to C4 and C5, also evident previously. This enhances only slightly if at all No significant interim change Impression: Moderate to severe spinal stenosis, with impingement on the cord, extending from C3-4 to C5-6. Associated multilevel degenerative neural foraminal stenosis, as detailed above Associated degenerative change, as detailed on a level by level basis above Thin sliver of edema of the prevertebral fat anterior to C4 and C5 with only equivocal enhancement. Significance uncertain, focus of infection at this level not excludable No evidence of infectious spondylitis or epidural abscess
--- NOTE | 2017-09-10 17:10 | General Surgery Progress Note ---
General Surgery-Progress Note Subjective Additional Comments no acute events. resting comfortable. Objective Last 24 Hour Vital Signs Date Time Temp Pulse Resp B/P (MAP) Pulse Ox O2 Delivery O2 Flow Rate FiO2 09/10/17 16:26 98.5 09/10/17 15:02 98.5 09/10/17 13:51 98.5 09/10/17 09:49 98.5 09/10/17 09:00 Room Air 09/10/17 08:50 98.5 09/10/17 08:00 97.5 72 20 101/57 (72) 96 97.5 09/10/17 07:58 80 18 Room Air 21 09/10/17 04:00 98.5 75 17 107/58 (74) 96 98.5 09/10/17 00:00 98.7 74 16 112/60 (77) 95 98.7 09/09/17 21:00 Room Air 09/09/17 20:00 99.9 82 19 112/61 (78) 95 99.9 09/09/17 19:03 82 18 Room Air 21 09/09/17 17:58 97.7 I&O Intake and Output 09/09/17 09/10/17 19:00 07:00 Intake Total 290 ml 1080 ml Output Total 1700 ml 1750 ml Balance -1410 ml -670 ml Intake Oral 240 ml 300 ml IV Total 50 ml 780 ml Output Urine Total 1700 ml 1750 ml Wound: clean, dry Drains: none Cardiovascular: RSR Respiratory: clear Abdomen: soft, non-tender, present bowel sounds Extremities: no cyanosis Laboratory Tests Test 09/10/17 05:47 White Blood Count 6.0 K/UL (4.8-10.8) Red Blood Count 3.27 M/UL (4.70-6.10) L Hemoglobin 9.0 G/DL (14.2-18.0) L Hematocrit 28.3 % (42.0-52.0) L Mean Corpuscular Volume 87 FL (80-99) Mean Corpuscular Hemoglobin 27.6 PG (27.0-31.0) Mean Corpuscular Hemoglobin Concent 31.9 G/DL (32.0-36.0) L Red Cell Distribution Width 14.4 % (11.6-14.8) Platelet Count 221 K/UL (150-450) Mean Platelet Volume 5.7 FL (6.5-10.1) L Neutrophils (%) (Auto) 54.8 % (45.0-75.0) Lymphocytes (%) (Auto) 35.0 % (20.0-45.0) Monocytes (%) (Auto) 7.1 % (1.0-10.0) Eosinophils (%) (Auto) 2.5 % (0.0-3.0) Basophils (%) (Auto) 0.5 % (0.0-2.0) Sodium Level 136 MMOL/L (136-145) Potassium Level 4.0 MMOL/L (3.5-5.1) Chloride Level 102 MMOL/L (98-107) Carbon Dioxide Level 27 MMOL/L (21-32) Anion Gap 7 mmol/L (5-15) Blood Urea Nitrogen 6 mg/dL (7-18) L Creatinine 0.5 MG/DL (0.55-1.30) L Estimat Glomerular Filtration Rate > 60 mL/min (>60) Glucose Level 85 MG/DL (74-106) Calcium Level 8.5 MG/DL (8.5-10.1) Plan Problems: (1) Empyema Assessment & Plan: s/p VATS. since chest tube removed. wounds healing. no signs of surgical site infection. does have pain on left ribs and likely healing from surgery patient signed out AMA last hospitalization prior to completion of therapy. Repeat chest CT now with larger right sided effusion possible empyema. MRI spine reviewed. spine abscess recommend tap of right side for cultures / eval -patient declined and refused thoracentesis new MRI's noted needs spine surgery eval. possibly may need transfer to high level of care IV Abx will follow with Brian Milligan Sep 10, 2017 17:10
--- NOTE | 2017-09-10 17:16 | Diagnostic Imaging Report ---
Indications: Needs long-term IV access Technique: Ultrasound confirms patent compressible left basilic vein. Total sterile technique, including sterile probe cover and sterile gel, hat, mask, sterile gown, large sterile drape, and preparation with 2% chlorhexidine utilized. Local anesthesia with 1% lidocaine. Under real-time ultrasound guidance, puncture basilic vein using 21-gauge needle, documented and archived, passage 0.018 guidewire under direct fluoroscopy, which was used to determine appropriate catheter length, exchange for 5 Somali peel-away sheath. 5 Somali Bard dual-lumen power PICC cut to 42 cm. It was inserted through the peel-away sheath. Peel-away sheath and guidewire removed. Catheter fixed to the skin. Both catheter ports aspirated and flushed. Patient tolerated procedure well, without immediate complication. Digital radiograph documents satisfactory catheter tip position, at the cavoatrial junction. Total fluoroscopy time 0.2 minutes. Total dose area product 60 dGycm2 Total number of images: 1 Impression: Successful placement of left arm PICC under sonographic and fluoroscopic guidance, as described above.
--- NOTE | 2017-09-10 17:26 | Diagnostic Imaging Report ---
Indication: Back pain, history of thoracic spine abscess Technique: Sagittal T1 fast spin echo, sagittal T2 FRFSE, sagittal STIR, axial T2 FRFSE, axial T1, pre and postcontrast axial and sagittal T1 fat saturated images of the thoracic spine Comparison: 08/28/2017 and 08/27/2017 Findings: Again demonstrated is evidence of spondylodiscitis at T9-10. There is abnormal increased T2 and decreased T1 signal within the T9 and 10 vertebral bodies, and marked edema of the disc. There appears to be interim widening of the disc space with associated volume loss of the adjacent vertebral bodies, probably volume loss/destruction of the inferior aspect of T9. Only minimal change in height of T10 is demonstrated. There is increased destruction of the disc itself, with absence of any nonenhancing disc on the postcontrast images, and an anterior area of nonenhancement and fluid signal 13 mm craniocaudad by 13 mm AP by 31 mm transverse. Again demonstrated is epidural phlegmon and abscess, extending from the the level of the bottom of T7 to the level of mid T10. This has grown significantly smaller in size. Currently only a tiny an area of nonenhancement an focal increased T2 signal is seen measuring 4 x 1 mm in diameter, which is located posterior to T8. Previously this area measured 8 x 3 mm. The degree of cord impingement as result of this is also decreased dramatically. Previously, the spinal canal had a minimum AP diameter of 5 mm. It is currently 8 mm AP at its narrowest point A separate small fluid collection is located posterior to the T7-8 disc in the midline, measures 3 mm AP by 8 mm transverse by 8 mm craniocaudad. This was not well demonstrated as a discrete collection previously due to the inferior imaging quality of the previous study, although abnormal thickening of the posterior tissues was demonstrated in this area. The degree of cord compression at this level has likewise improved markedly, with the canal previously measuring 5 mm AP diameter at this level, currently 8 mm. There is some increased cord signal at the level of the T7-8 disc which is much better visualized on the current than on the previous study, which is more affected by motion. Again demonstrated is enhancement of an extensive abnormal signal within the paraspinous soft tissues extending from about T7 to the top of T11. This appears somewhat less extensive than on the previous study, and the adjacent pleural loculated collections appear decreased in size. The pleural collection on the left currently measures approximately 3 x 10 mm, previously over 5 x 2.5. The larger fluid collections on the right are incompletely included and cannot be measured.. The smaller more medial discrete fluid collections appear to be smaller than on the prior study At T10-11, there is degenerative disc narrowing and slightly increased disc signal. However, there is no associated disc enhancement and is most likely this represents degenerative change. Circumferential annular bulge at this level results in borderline narrowing of the spinal canal. Some increased T2 signal is seen in the posterior aspect of the T8 vertebral body, and there is some associated enhancement. No disc enhancement or endplate enhancement is demonstrated. This is only equivocally evident in retrospect. At the remaining disc levels, no abnormal marrow enhancement is demonstrated. The vertebral body heights are preserved. The remaining disc spaces are largely preserved. No significant disc bulge or protrusion, spinal stenosis, or neural foraminal stenosis. Impression: Again demonstrated is evidence of spondylodiscitis at T9-10. There is evidence of increasing destruction of the disc, increasing destruction of the adjacent endplates, particularly T9, and a possible 13 x 13 x 31 mm intradiscal abscess anteriorly. Again demonstrated is evidence of epidural phlegmon and multiloculated epidural abscess extending from T7 through T10. However, this is decreased significantly in size and associated mass effect, with the individual abscess pockets as well as the mass effect from the phlegmon having decreased. There is still spinal stenosis and mild cord compression, but this has improved significantly. Currently the canal is narrowed to 8 mm diameter at its narrowest point, previously 5 mm Increased signal and enhancement in the posterior aspect of the T8 vertebral body, may indicate some focal spondylitis at this level. In retrospect, equivocally evident on earlier studies. Evidence of increased cord signal at the level of T7-T8 disc, indicative of some myelomalacia, probably related to the previous cord compression Decreased but still extensive enhancement and edema of the paraspinous musculature and adjacent pleural spaces, as well as evidence of bilateral pleural empyemas, likewise apparently decreased in extent. As previously discussed, the spinal discitis and epidural abscesses are probably the result of spinous extension of adjacent pleural empyemas. Mild disc abnormality at T10-11, probably on the basis of degenerative change Findings discussed by phone with Dr. Cox
[2017-09-10 20:00] VITALS: BP 119/60
[2017-09-10] MEDS: Dyna-Hex 2% Top Sol 2oz TOPIC SCH (20:00)
--- NOTE | 2017-09-10 21:19 | Consultation ---
Consult Note Consult Note NEUROLOGY FOLLOW-UP Mr. Plasencia does not want me to take care of him. Will stop following. If patient needs a neurologist please call another neurologist. Julee Ansari M.D. JULEE ANSARI Sep 10, 2017 21:19
--- NOTE | 2017-09-10 22:54 | Cardiology Progress Note ---
Assessment/Plan Assessment/Plan 1. Bacteremia, refused NURA, TTE lacks sensitivity for detecting vegetations. 2. s/p VATS 3. Epidural abscess 4. COPD Subjective Subjective No cardiac events. Objective Last 24 Hour Vital Signs Date Time Temp Pulse Resp B/P (MAP) Pulse Ox O2 Delivery O2 Flow Rate FiO2 09/10/17 20:00 98.7 77 18 119/60 (79) 93 98.7 09/10/17 19:10 98.5 09/10/17 18:40 98.5 09/10/17 17:25 98.5 09/10/17 16:26 98.5 09/10/17 16:00 98.1 79 20 110/53 (72) 95 98.1 09/10/17 15:02 98.5 09/10/17 13:51 98.5 09/10/17 12:00 98.0 75 20 110/60 (77) 97 98.0 09/10/17 09:00 Room Air 09/10/17 08:50 98.5 09/10/17 08:00 97.5 72 20 101/57 (72) 96 97.5 09/10/17 07:58 80 18 Room Air 21 09/10/17 04:00 98.5 75 17 107/58 (74) 96 98.5 09/10/17 00:00 98.7 74 16 112/60 (77) 95 98.7 Intake and Output 09/09/17 09/10/17 19:00 07:00 Intake Total 290 ml 1080 ml Output Total 1700 ml 1750 ml Balance -1410 ml -670 ml Intake Oral 240 ml 300 ml IV Total 50 ml 780 ml Output Urine Total 1700 ml 1750 ml 2D Echo: LVEF 55-60%, Grade I LVDD Laboratory Tests Test 09/10/17 05:47 White Blood Count 6.0 K/UL (4.8-10.8) Red Blood Count 3.27 M/UL (4.70-6.10) L Hemoglobin 9.0 G/DL (14.2-18.0) L Hematocrit 28.3 % (42.0-52.0) L Mean Corpuscular Volume 87 FL (80-99) Mean Corpuscular Hemoglobin 27.6 PG (27.0-31.0) Mean Corpuscular Hemoglobin Concent 31.9 G/DL (32.0-36.0) L Red Cell Distribution Width 14.4 % (11.6-14.8) Platelet Count 221 K/UL (150-450) Mean Platelet Volume 5.7 FL (6.5-10.1) L Neutrophils (%) (Auto) 54.8 % (45.0-75.0) Lymphocytes (%) (Auto) 35.0 % (20.0-45.0) Monocytes (%) (Auto) 7.1 % (1.0-10.0) Eosinophils (%) (Auto) 2.5 % (0.0-3.0) Basophils (%) (Auto) 0.5 % (0.0-2.0) Sodium Level 136 MMOL/L (136-145) Potassium Level 4.0 MMOL/L (3.5-5.1) Chloride Level 102 MMOL/L (98-107) Carbon Dioxide Level 27 MMOL/L (21-32) Anion Gap 7 mmol/L (5-15) Blood Urea Nitrogen 6 mg/dL (7-18) L Creatinine 0.5 MG/DL (0.55-1.30) L Estimat Glomerular Filtration Rate > 60 mL/min (>60) Glucose Level 85 MG/DL (74-106) Calcium Level 8.5 MG/DL (8.5-10.1) Objective HEENT: Normocephalic, atraumatic, PERRLA, EOMI, No pale conjunctivae. No icterus. NECK: No JVD, no carotid bruit. CHEST: Normal breath sounds HEART: Normal S1 and S2, no murmurs, gallops or rubs. ABDOMEN: Soft and nontender, no hepatosplenomegaly, + BS. BACK: The patient has tenderness in the lower thoracic and lumbar area. EXTREMITIES: No edema , clubbing or cyanosis. Omid Tellez MD Sep 10, 2017 22:54
--- NOTE | 2017-09-10 23:45 | Progress Note ---
DATE: 09/10/2017 SUBJECTIVE: This is a 57-year-old male patient with sepsis and empyema. The patient has continued to have problems with anxiety, depression worsened by stress of his medical illness. That is why his attending has requested daily psychiatric consultation. MENTAL STATUS EXAMINATION: A 57-year-old male. Appearance is disheveled. Attitude, irritable and agitated. Affect, guarded and restricted. Intellect poor. Mood, depressed and anxious. Motor activity, psychomotor agitation. Attention span is poor. Orientation x2. Speech pressured. Thought process, disorganized and illogical. Thought content, auditory hallucinations and paranoid delusions. Insight and judgment is poor. DIAGNOSIS: Major depressive disorder, severe, recurrent, without psychotic features. Rule out depression with psychotic features. PLAN: Continue Cymbalta 30 mg a day and Neurontin 300 mg three times a day. Provided 20 minutes of cognitive behavioral therapy to identify a lot of negative thoughts and help him to convert them to more positive thoughts. Chart reviewed. Discussed with staff. Seen and assessed in his room. Gudelia Villa M.D. DR: Gene JOB#: [id number] CC:
[2017-09-11] VITALS: BP 104/60
[2017-09-11] MEDS: Oxacillin 2 GM in NS 110 ML IVPB SCH ×6 (00:39→20:45)
[2017-09-11] MEDS: MS Contin 15mg tab ORAL SCH ×4 (00:39→23:57)
[2017-09-11] MEDS: HYDROmorphone 1mg/ml Carpuject IVP PRN ×7 (02:35→21:46)
[2017-09-11 04:00] VITALS: BP 105/54
--- NOTE | 2017-09-11 07:46 | General Progress Note ---
Assessment/Plan Assessment/Plan (1) Left sided wall chest pain (2) Lung effusion possible empyema (3) S/p VATS (4) Intercostal Neuropathy (5) Lumbar Spondylosis (6) T9-10 discitis/osteomyelitis with epidural abscess (7) Cervical spinal stenosis We will continue Dilaudid and Morphine ER. 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 D/w Dr. Stevens and he concurred. Subjective Date patient seen: Sep 11, 2017 Time patient seen: 07:00 - am Allergies: Coded Allergies: No Known Allergies (Unverified , 08/06/17) Subjective REVIEW OF SYSTEMS: Denies rash, fever, chills, sweating, dizziness, drowsiness, blurred vision, sore throat, or change in weight. No nausea, vomiting, diarrhea, or blood in the stool or urine. He is complaining of left chest wall pain and back pain. SUBJECTIVE: Patient is in bed and pain is unchanged. The pain has been tolerated on the Morphine ER and Dilaudid. MRIs were reviewed. Objective Last 24 Hour Vital Signs Date Time Temp Pulse Resp B/P (MAP) Pulse Ox O2 Delivery O2 Flow Rate FiO2 09/11/17 04:00 97.2 68 20 105/54 (71) 97 97.2 09/11/17 00:00 98.3 81 20 104/60 (75) 97 98.3 09/10/17 22:50 74 20 Room Air 21 09/10/17 21:00 Room Air 09/10/17 20:00 98.7 77 18 119/60 (79) 93 98.7 09/10/17 19:10 98.5 09/10/17 18:40 98.5 09/10/17 17:25 98.5 09/10/17 16:26 98.5 09/10/17 16:00 98.1 79 20 110/53 (72) 95 98.1 09/10/17 15:02 98.5 09/10/17 13:51 98.5 09/10/17 12:00 98.0 75 20 110/60 (77) 97 98.0 09/10/17 09:00 Room Air 09/10/17 08:50 98.5 09/10/17 08:00 97.5 72 20 101/57 (72) 96 97.5 09/10/17 07:58 80 18 Room Air 21 Intake and Output 09/10/17 09/11/17 19:00 07:00 Intake Total 1400 ml 500 ml Output Total 900 ml 900 ml Balance 500 ml -400 ml Intake Oral 800 ml IV Total 600 ml Other 500 ml Output Urine Total 900 ml 900 ml Height (Feet): 5 Height (Inches): 7.00 Weight (Pounds): 166 Objective GENERAL: Alert, awake, and oriented. LUNGS: Decreased breath sounds bilaterally. HEART: S1 S2 Regular. ABDOMEN: Benign. EXTREMITIES: No cyanosis. No clubbing. No edema. NEURO: No changes. Procedure: MRI C Spine w/wo Contrast Indication: Neck pain, back pain, history of thoracic spondylitis Technique: Sagittal T1 FLAIR, sagittal T2 FRFSE, sagittal STIR, axial T2 FRFSE, axial 3-D COSMIC ASPIR, post contrast sagittal T1 fast spin echo, postcontrast sagittal T1 FLAIR, postcontrast axial T1 FSE images of the cervical spine Comparison: Noncontrast study dated 08/29/2017 Findings: There is slight degradation of imaging quality, particularly the axial images, due to motion artifact, although this is less severe than on the prior study. There is slight reversal of the normal cervical lordosis. Otherwise normal bony alignment. There is decreased T1 and increased T2 signal within the C5 and C6 vertebral bodies, associated with a very narrow disc and probably representing Modic type I marrow changes. The intrinsic cord signal is normal At C2-3, the disc space is preserved. No evidence of significant neural foraminal stenosis or spinal stenosis. At C3-4, the disc is slightly narrowed.. However, there is central and especially right paracentral disc protrusion, which results in moderate to severe narrowing of the spinal canal, impingement upon the cord, and impingement upon the right lateral recess. Minimum AP dimension of the central canal is 5 mm There is moderate to severe bilateral neural foraminal stenosis at this level. At C4-5, there is mild narrowing of the disc there is circumferential annular bulge. This, in combination with short pedicles, results in moderate to severe narrowing of the spinal canal, minimum AP dimension 6 mm. There is mild impingement upon the cord at this level. There is also likely impingement upon the bilateral lateral recesses. There is severe bilateral neural foraminal stenosis at this level. At C5-6, there is severe narrowing of the disc. As mentioned earlier, there is slight enhancement of the adjacent vertebral bodies, but no significant disc enhancement is demonstrated. Posterior disc bulge and osteophyte complex at this level results in moderate to severe spinal stenosis, with impingement on the cord, in narrowing of the spinal canal to 5 mm minimum AP dimension. There is severe bilateral neural foraminal stenosis at this level. At C6-7, there is right paracentral disc protrusion, which does not significantly narrow the spinal canal but doesn't impinge upon the right lateral recess. There is moderate left and severe right neural foraminal stenosis. At C7-T1, no significant disc bulge or protrusion, spinal stenosis, or neural foraminal stenosis. There is a thin sliver of edema of the prevertebral fat anterior to C4 and C5, also evident previously. This enhances only slightly if at all No significant interim change Impression: Moderate to severe spinal stenosis, with impingement on the cord, extending from C3-4 to C5-6. Associated multilevel degenerative neural foraminal stenosis, as detailed above Associated degenerative change, as detailed on a level by level basis above Thin sliver of edema of the prevertebral fat anterior to C4 and C5 with only equivocal enhancement. Significance uncertain, focus of infection at this level not excludable No evidence of infectious spondylitis or epidural abscess Procedure: MRI L Spine w/wo Contrast Indication: Back pain, infectious spondylitis demonstrated on prior imaging studies Technique: Sagittal T1 fast spin echo, sagittal T2 FRFSE, sagittal STIR, axial T2 FRFSE, axial T1, axial T2 disc slices, precontrast axial T1 fat saturated, postcontrast axial and sagittal T1 fat saturated images obtained of the lumbar spine axial T1 Comparison: 08/27/2017 Findings: Previous study included abnormalities of the lower thoracic spine which are discussed on a separate thoracic spine MRI report. There are extensive Modic type II marrow changes extending from L2 through S1. There is no evidence of marrow edema. There is a small round signal abnormality in L1, which is high signal on all sequences including STIR, in retrospect evident previously. This also enhances slightly. There is some fluid within the L2-3 disc, which is narrowed. However, there is no evidence of associated endplate edema or disc enhancement. There is endplate irregularity at this level. Minimal fluid is also again seen within the L5-S1 disc. The bony alignment is normal. The conus medullaris terminates at the top of L1. At L1-2, there is marked facet hypertrophy, which results in mild narrowing of the spinal canal and mild narrowing of the left neural foramen. Some facet hypertrophy on the right also narrows the neural foramen slightly. At L2-3, there is degenerative disc narrowing. There is circumferential annular bulge as well as bilateral intraforaminal disc protrusion. This results in moderate narrowing of the spinal canal, compromise of the bilateral lateral recesses, and at least mild compromise of the bilateral neural foramina. At L3-4, there is mild circumferential annular bulge. This, in combination with facet and ligament flavum hypertrophy, results in mild narrowing of the spinal canal. There is mild bilateral neural foraminal stenosis at this level. At L4-5, circumferential annular bulge, posterior osteophytes, facet and ligament flavum hypertrophy and short pedicles result in moderate to severe narrowing of the spinal canal. There is also moderate to severe narrowing of the bilateral neural foramina. At L5-S1, there is minimal circumferential annular bulge. There is mild narrowing of the spinal canal, predominantly in the transverse dimension and predominantly due to facet hypertrophy. There is moderate to severe narrowing of the left neural foramen and moderate narrowing of the right neural foramen. Impression: No definite acute abnormality 1 cm diameter focus of abnormal signal within the L1 vertebral body, as described. Most likely an atypical hemangioma, but neoplastic etiology cannot be completely ruled out. Multilevel degenerative changes, as detailed on a level by level basis above. Note moderate to severe spinal stenosis at L4-5 Procedure: MRI T Spine wo/w Contrast Indication: Back pain, history of thoracic spine abscess Technique: Sagittal T1 fast spin echo, sagittal T2 FRFSE, sagittal STIR, axial T2 FRFSE, axial T1, pre and postcontrast axial and sagittal T1 fat saturated images of the thoracic spine Comparison: 08/28/2017 and 08/27/2017 Findings: Again demonstrated is evidence of spondylodiscitis at T9-10. There is abnormal increased T2 and decreased T1 signal within the T9 and 10 vertebral bodies, and marked edema of the disc. There appears to be interim widening of the disc space with associated volume loss of the adjacent vertebral bodies, probably volume loss/destruction of the inferior aspect of T9. Only minimal change in height of T10 is demonstrated. There is increased destruction of the disc itself, with absence of any nonenhancing disc on the postcontrast images, and an anterior area of nonenhancement and fluid signal 13 mm craniocaudad by 13 mm AP by 31 mm transverse. Again demonstrated is epidural phlegmon and abscess, extending from the the level of the bottom of T7 to the level of mid T10. This has grown significantly smaller in size. Currently only a tiny an area of nonenhancement an focal increased T2 signal is seen measuring 4 x 1 mm in diameter, which is located posterior to T8. Previously this area measured 8 x 3 mm. The degree of cord impingement as result of this is also decreased dramatically. Previously, the spinal canal had a minimum AP diameter of 5 mm. It is currently 8 mm AP at its narrowest point A separate small fluid collection is located posterior to the T7-8 disc in the midline, measures 3 mm AP by 8 mm transverse by 8 mm craniocaudad. This was not well demonstrated as a discrete collection previously due to the inferior imaging quality of the previous study, although abnormal thickening of the posterior tissues was demonstrated in this area. The degree of cord compression at this level has likewise improved markedly, with the canal previously measuring 5 mm AP diameter at this level, currently 8 mm. There is some increased cord signal at the level of the T7-8 disc which is much better visualized on the current than on the previous study, which is more affected by motion. Again demonstrated is enhancement of an extensive abnormal signal within the paraspinous soft tissues extending from about T7 to the top of T11. This appears somewhat less extensive than on the previous study, and the adjacent pleural loculated collections appear decreased in size. The pleural collection on the left currently measures approximately 3 x 10 mm, previously over 5 x 2.5. The larger fluid collections on the right are incompletely included and cannot be measured.. The smaller more medial discrete fluid collections appear to be smaller than on the prior study At T10-11, there is degenerative disc narrowing and slightly increased disc signal. However, there is no associated disc enhancement and is most likely this represents degenerative change. Circumferential annular bulge at this level results in borderline narrowing of the spinal canal. Some increased T2 signal is seen in the posterior aspect of the T8 vertebral body, and there is some associated enhancement. No disc enhancement or endplate enhancement is demonstrated. This is only equivocally evident in retrospect. At the remaining disc levels, no abnormal marrow enhancement is demonstrated. The vertebral body heights are preserved. The remaining disc spaces are largely preserved. No significant disc bulge or protrusion, spinal stenosis, or neural foraminal stenosis. Impression: Again demonstrated is evidence of spondylodiscitis at T9-10. There is evidence of increasing destruction of the disc, increasing destruction of the adjacent endplates, particularly T9, and a possible 13 x 13 x 31 mm intradiscal abscess anteriorly. Again demonstrated is evidence of epidural phlegmon and multiloculated epidural abscess extending from T7 through T10. However, this is decreased significantly in size and associated mass effect, with the individual abscess pockets as well as the mass effect from the phlegmon having decreased. There is still spinal stenosis and mild cord compression, but this has improved significantly. Currently the canal is narrowed to 8 mm diameter at its narrowest point, previously 5 mm Increased signal and enhancement in the posterior aspect of the T8 vertebral body, may indicate some focal spondylitis at this level. In retrospect, equivocally evident on earlier studies. Evidence of increased cord signal at the level of T7-T8 disc, indicative of some myelomalacia, probably related to the previous cord compression Decreased but still extensive enhancement and edema of the paraspinous musculature and adjacent pleural spaces, as well as evidence of bilateral pleural empyemas, likewise apparently decreased in extent. As previously discussed, the spinal discitis and epidural abscesses are probably the result of spinous extension of adjacent pleural empyemas. Mild disc abnormality at T10-11, probably on the basis of degenerative change Mark Rausch Sep 11, 2017 07:46
--- NOTE | 2017-09-11 07:59 | Infectious Diseases Prog Note ---
Assessment/Plan Assessment/Plan The patient is a 56-year-old male with multiple medical problems, who has recent empyema/bacteremia due to methicillin-sensitive Staphylococcus aureus ( Signed off AMA on 08/18/17 and had incomplete treatment; only 10 day of 42) -CT chest 08/25: Increased size of loculated right pleural effusion. Small air in the pleural space. Smaller residual left loculated pleural fluid with small air. Small to moderate fluid collection now in the left fissure. Bilateral lower lobe atelectasis/consolidations and air space disease,similar. -s/p VATS, partial pleurectomy, decortication 08/14 -OR findings : Bronchoscopy: A minimal amount of mucopurulent secretion was lavaged and suctioned clear. No endobronchial lesions. -VATS: There were noted to be numerous adhesions tethering along to the surrounding chest wall. The disease appears to be localized in the left lower lobe as the left upper lobe was virtually spared. - OR cx MSSA -CT chest 08/10: Left pleural effusion. Scalloped appearance suggests loculation. Presence of gas bubbles suggest infection by gas-forming organism. Gas bubbles appear trapped within the fluid rather than floating nondependently , indicating the fluid may be highly viscous. - -08/07 Bcx 4/4 MSSA; 08/08 4/4+; 08/10 2/4 +; 08/11 2/4+; 08/13 Neg x4; Bcx 08/27 Negx4; 08/30 Neg -08/28 ESR 126 <86 (08/10), CRP 12 < 27 (08/09) Mild leukocytosis, recurrent- resolved Low grade fever, intermittent; resolved Probable endocarditis (NURA was not done). Thoracic Discitis/Osteomyelitis and epidural abscess T7-T10- causing spinal cord compression; Possible Cervical spodylodiscitis w/ cord compression > Quadriparesis -MRI Cervical spine: Disc narrowing at C5-6. Marrow edema of the adjacent C5 and C6 vertebral bodies is noted. This is most likely due to Modic type I degenerative change and reactive marrow edema, particularly given the absence of edema within the disc. However, the possibility of spondylodiscitis as etiology of this finding, particularly in view of recent diagnosis of thoracic epidural abscess and in view of the slight degree of surrounding soft tissue edema, should also be considered. Severe spinal stenosis with cord compression at multiple levels extending from C3-4 through C5-6. Minimum AP dimension of the spinal canal 5 mm. Due to image degradation, it is uncertain as to whether there is significant cord edema/myelomalacia present. Multilevel severe neural foraminal stenosis as detailed level by level basis above -MRI Thoracic Spine: Suspicion of cord compression T7-T10 secondary to a posterior epidural abscess versus mass. Abscess favored given suspicion of spondylodiscitis at T9-10 as well as bilateral pleural effusions and pneumonia ( recent diagnosed on CT chest). Significantly limited study due to motion. -MRI Lumbar spine: Evidence of T9-10 discitis/osteomyelitis. Suspect related to previously described adjacent bilateral pleural empyemas. Evidence of epidural abscess measuring at least 8 x 11 mm in diameter, and extending at least 5 cm craniocaudad, at and above the T9 level. This results in significant spinal stenosis. Note that it is incompletely included in the imaging volume, and the cephalad extent above mid T7 is unclear. Recommend thoracic MRI for further evaluation. As mentioned above, evidence of bilateral empyemas, with bilateral loculated pleural fluid collections and extensive enhancement and edema of the adjacent soft tissue. Extensive multilevel degenerative changes elsewhere, as detailed on a level by level basis above Polysubstance abuse- refers last IVDA was ~7 yrs ago -UDS (prior admission) +THC, cocaine and amphetamines HIV - non progressor- per patient, never on Tx and CD4 >500 and UD VL -07/2017 CD4 510 (39.2%), VL ND Hep C s/p tx (20 years ago) with sustained virologic response COPD/asthma tobacco abuse (stopped smoking 3d [employer]) PLAN: -. The patient is on oxacillin day # 18/42-56 (the patient received 11 days of treatment prior to discharge). -monitor LFTs -08/25 SP IV Vanco and Cefepme #2 -08/18 SP IV Oxacillin #9 -08/10 SP Ceftriaxone d# 5 and IV Vancomycin #3 -08/06 SP Cefepime x1, Levaquin x1 -. Monitor CBC/CMP, temperatures -* NEEDS EMERGENT transfer to tertiary hospital for neurosurgical evaluation for epidural abscess and thoracic discitis and OM as it causing spinal cord compression -awaiting transfer: having too much difficulty finding an accepting facility * -Needs also further chest drainage; currently refusing -will also need NURA to eval for endocarditis/valvular abscess ( pt refused ) Thank you consulting us on your patient. We will continue to follow Subjective Allergies: Coded Allergies: No Known Allergies (Unverified , 08/06/17) Subjective Patient with continue numbness of his lower extremities says he is in pain too. No N/V/D or fever Objective Vital Signs Last 24 Hour Vital Signs Date Time Temp Pulse Resp B/P (MAP) Pulse Ox O2 Delivery O2 Flow Rate FiO2 09/11/17 04:00 97.2 68 20 105/54 (71) 97 97.2 09/11/17 00:00 98.3 81 20 104/60 (75) 97 98.3 09/10/17 22:50 74 20 Room Air 21 09/10/17 21:00 Room Air 09/10/17 20:00 98.7 77 18 119/60 (79) 93 98.7 09/10/17 19:10 98.5 09/10/17 18:40 98.5 09/10/17 17:25 98.5 09/10/17 16:26 98.5 09/10/17 16:00 98.1 79 20 110/53 (72) 95 98.1 09/10/17 15:02 98.5 09/10/17 13:51 98.5 09/10/17 12:00 98.0 75 20 110/60 (77) 97 98.0 09/10/17 09:00 Room Air 09/10/17 08:50 98.5 09/10/17 08:00 97.5 72 20 101/57 (72) 96 97.5 09/10/17 07:58 80 18 Room Air 21 Height (Feet): 5 Height (Inches): 7.00 Weight (Pounds): 166 Objective GEN: Uncomfortable HEENT: No pale conjunctivae. No icterus. NECK: No lymphadenopathy. CHEST: Clear. Incision site is healing. HEART: S1 and S2. ABDOMEN: Soft and nontender. BACK: The patient has tenderness in the lower thoracic and lumbar area. EXTREMITIES: No cyanosis. NEUROLOGIC: Awake and alert. +Babinski, brisk reflexes, LE>UE weakness. Numbness of lower ext B/L Current Medications Medications (Trade) Dose Ordered Sig/Veronica Route PRN Reason Start Time Stop Time Status Last Admin Dose Admin Acetaminophen (Tylenol) 650 mg Q4H PRN ORAL FEVER 08/25/17 08:15 09/24/17 08:14 08/27/17 13:06 Albuterol/ Ipratropium (Albuterol/ Ipratropium) 3 ml Q4H PRN HHN Shortness of Breath 09/08/17 10:15 09/13/17 10:14 Chlorhexidine Gluconate (Nishi-Hex 2%) 1 applic DAILY@2000 TOPIC 09/10/17 20:00 10/10/17 19:59 Dextrose (Dextrose 50%) 25 ml STAT PRN IV Hypoglycemia 08/25/17 08:15 09/24/17 08:14 Dextrose (Dextrose 50%) 50 ml STAT PRN IV Hypoglycemia 08/25/17 08:30 09/24/17 08:29 Docusate Sodium (Colace) 100 mg THREE TIMES A DAY ORAL 08/30/17 13:00 09/29/17 12:59 09/09/17 08:03 Duloxetine HCl (Cymbalta) 30 mg DAILY ORAL 08/25/17 09:00 09/24/17 08:59 09/10/17 08:50 Gabapentin (Neurontin) 300 mg THREE TIMES A DAY ORAL 08/25/17 09:00 09/24/17 08:59 09/10/17 18:40 Gadobutrol (Gadavist) 7.5 mmol NOW PRN IV Radiology Procedure 09/08/17 13:30 09/12/17 13:18 Gadobutrol (Gadavist) 7.5 mmol NOW PRN IV Radiology Procedure 09/08/17 13:30 09/12/17 13:18 Gadobutrol (Gadavist) 7.5 mmol NOW PRN IV Radiology Procedure 09/08/17 13:30 09/12/17 13:18 Heparin Sodium (Porcine) (Heparin 5000 units/ml) 5,000 units EVERY 12 HOURS SUBQ 08/25/17 09:00 09/24/17 08:59 09/10/17 21:16 Hydromorphone HCl (Dilaudid) 1 mg Q3H PRN IVP Severe Pain (Pain Scale 7-10) 09/10/17 16:15 09/17/17 16:14 09/11/17 05:52 Lactulose (Cephulac) 30 gm QIDPRN PRN ORAL constipation 09/06/17 16:15 10/06/17 16:14 Morphine Sulfate (MS Contin) 15 mg Q8H ORAL 09/06/17 16:00 09/13/17 15:59 09/11/17 00:39 Naloxone HCl (Narcan) 0.2 mg Q2H PRN IVP respritory depression 09/06/17 16:08 10/06/17 16:07 Ondansetron HCl (Zofran) 4 mg Q6H PRN IVP Nausea & Vomiting 08/25/17 08:15 09/24/17 08:14 09/04/17 05:23 Oxacillin Sodium 2 gm/Sodium Chloride 110 ml @ 220 mls/hr Q4HR IVPB 08/25/17 21:00 10/04/17 20:59 09/11/17 05:03 Polyethylene Glycol (Miralax) 17 gm DAILYPRN PRN ORAL Constipation 08/25/17 08:15 09/24/17 08:14 09/02/17 14:38 Sodium Chloride 1,000 ml @ 50 mls/hr Q20H IV 08/26/17 13:45 09/25/17 13:44 09/10/17 13:53 Murali Laguna M.D. Sep 11, 2017 07:59
[2017-09-11 08:00] VITALS: BP 123/59
[2017-09-11] MEDS: DULoxetine 30mg cap ORAL SCH (08:51)
[2017-09-11] MEDS: Heparin 5000 units/ml inj SUBQ SCH ×2 (08:58→20:47)
[2017-09-11] MEDS: Docusate 100mg cap ORAL SCH ×3 (08:59→18:40)
--- NOTE | 2017-09-11 11:00 | Progress Note ---
DATE: 09/11/2017 SUBJECTIVE: The patient is a 57-year-old male patient with sepsis and empyema depression, some mood lability, and confusion. That is why, his attending has requested daily psychiatric consultation. His cognition has declined below baseline. MENTAL STATUS EXAMINATION: A 57-year-old male. Appearance is disheveled. Attitude, irritable and agitated. Affect, guarded and restricted. Intellect poor. Mood, depressed and anxious. Motor activity, psychomotor agitation. Attention span is poor. Orientation x2. Speech pressured. Thought process, disorganized and illogical. Insight and judgment is poor. DIAGNOSIS: Major depression with psychotic features. PLAN: Treat him with Cymbalta 30 mg daily and Neurontin 300 mg three times a day. Provided 20 minutes of cognitive behavioral therapy to identify a lot of negative thoughts and help him to convert them to more positive thoughts. Chart reviewed. Discussed with staff. Seen and assessed at bedside. Gudelia Villa M.D. DR: IRLANDA JOB#: [id number] CC:
[2017-09-11 12:00] VITALS: BP 112/56
--- NOTE | 2017-09-11 12:51 | Pulmonology Progress Note ---
Assessment/Plan Problems: (1) Epidural abscess (2) Sepsis (3) Osteomyelitis (4) COPD (chronic obstructive pulmonary disease) (5) Hypoalbuminemia (6) Hepatitis C (7) HIV (human immunodeficiency virus infection) (8) Pleural effusion Assessment/Plan New MRI Impression: Moderate to severe spinal stenosis, with impingement on the cord, extending from C3-4 to C5-6. Associated multilevel degenerative neural foraminal stenosis, as detailed above pain management no new complains spine surgery evaluation can not be done at this facility iv abx, ID note appreciated check electrolytes symptomatic treatment transfer to higher level of care Subjective ROS Limited/Unobtainable: No Constitutional: Reports: no symptoms HEENT: Repors: no symptoms Respiratory: Reports: no symptoms Allergies: Coded Allergies: No Known Allergies (Unverified , 08/06/17) Objective Last 24 Hour Vital Signs Date Time Temp Pulse Resp B/P (MAP) Pulse Ox O2 Delivery O2 Flow Rate FiO2 09/11/17 12:00 98.6 70 20 112/56 (74) 95 98.6 09/11/17 09:52 98.1 09/11/17 09:52 98.1 09/11/17 09:34 98.1 09/11/17 09:00 Room Air 09/11/17 08:53 98.1 09/11/17 08:00 98.1 67 19 123/59 (80) 96 98.1 09/11/17 07:30 70 18 Room Air 21 09/11/17 04:00 97.2 68 20 105/54 (71) 97 97.2 09/11/17 00:00 98.3 81 20 104/60 (75) 97 98.3 09/10/17 22:50 74 20 Room Air 21 09/10/17 21:00 Room Air 09/10/17 20:00 98.7 77 18 119/60 (79) 93 98.7 09/10/17 18:40 98.5 09/10/17 16:26 98.5 09/10/17 16:00 98.1 79 20 110/53 (72) 95 98.1 09/10/17 15:02 98.5 09/10/17 13:51 98.5 Intake and Output 09/10/17 09/11/17 19:00 07:00 Intake Total 1400 ml 500 ml Output Total 900 ml 900 ml Balance 500 ml -400 ml Intake Oral 800 ml IV Total 600 ml Other 500 ml Output Urine Total 900 ml 900 ml General Appearance: WD/WN HEENT: normocephalic, atraumatic Respiratory/Chest: chest wall non-tender, lungs clear Cardiovascular: normal peripheral pulses, normal rate Abdomen: normal bowel sounds, soft, non tender Genitourinary: normal external genitalia Extremities: no clubbing Skin: no ulcers 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 Current Medications Medications (Trade) Dose Ordered Sig/Veronica Route PRN Reason Start Time Stop Time Status Last Admin Dose Admin Acetaminophen (Tylenol) 650 mg Q4H PRN ORAL FEVER 08/25/17 08:15 09/24/17 08:14 08/27/17 13:06 Albuterol/ Ipratropium (Albuterol/ Ipratropium) 3 ml Q4H PRN HHN Shortness of Breath 09/08/17 10:15 09/13/17 10:14 Chlorhexidine Gluconate (Nishi-Hex 2%) 1 applic DAILY@2000 TOPIC 09/10/17 20:00 10/10/17 19:59 Dextrose (Dextrose 50%) 25 ml STAT PRN IV Hypoglycemia 08/25/17 08:15 09/24/17 08:14 Dextrose (Dextrose 50%) 50 ml STAT PRN IV Hypoglycemia 08/25/17 08:30 09/24/17 08:29 Docusate Sodium (Colace) 100 mg THREE TIMES A DAY ORAL 08/30/17 13:00 09/29/17 12:59 09/11/17 12:37 Duloxetine HCl (Cymbalta) 30 mg DAILY ORAL 08/25/17 09:00 09/24/17 08:59 09/11/17 08:51 Gabapentin (Neurontin) 300 mg THREE TIMES A DAY ORAL 08/25/17 09:00 09/24/17 08:59 09/11/17 12:37 Gadobutrol (Gadavist) 7.5 mmol NOW PRN IV Radiology Procedure 09/08/17 13:30 09/12/17 13:18 Gadobutrol (Gadavist) 7.5 mmol NOW PRN IV Radiology Procedure 09/08/17 13:30 09/12/17 13:18 Gadobutrol (Gadavist) 7.5 mmol NOW PRN IV Radiology Procedure 09/08/17 13:30 09/12/17 13:18 Heparin Sodium (Porcine) (Heparin 5000 units/ml) 5,000 units EVERY 12 HOURS SUBQ 08/25/17 09:00 09/24/17 08:59 09/11/17 08:58 Hydromorphone HCl (Dilaudid) 1 mg Q3H PRN IVP Severe Pain (Pain Scale 7-10) 09/10/17 16:15 09/17/17 16:14 09/11/17 12:37 Lactulose (Cephulac) 30 gm QIDPRN PRN ORAL constipation 09/06/17 16:15 10/06/17 16:14 Morphine Sulfate (MS Contin) 15 mg Q8H ORAL 09/06/17 16:00 09/13/17 15:59 09/11/17 08:53 Naloxone HCl (Narcan) 0.2 mg Q2H PRN IVP respritory depression 09/06/17 16:08 10/06/17 16:07 Ondansetron HCl (Zofran) 4 mg Q6H PRN IVP Nausea & Vomiting 08/25/17 08:15 09/24/17 08:14 09/04/17 05:23 Oxacillin Sodium 2 gm/Sodium Chloride 110 ml @ 220 mls/hr Q4HR IVPB 08/25/17 21:00 10/04/17 20:59 09/11/17 12:37 Polyethylene Glycol (Miralax) 17 gm DAILYPRN PRN ORAL Constipation 08/25/17 08:15 09/24/17 08:14 09/02/17 14:38 Sodium Chloride 1,000 ml @ 50 mls/hr Q20H IV 08/26/17 13:45 09/25/17 13:44 09/11/17 09:34 Sally Cox MD Sep 11, 2017 12:51
--- NOTE | 2017-09-11 13:13 | General Progress Note ---
Assessment/Plan Problem List: (1) Drug abuse and dependence ICD Codes: F19.20 - Other psychoactive substance dependence, uncomplicated SNOMED: 7172107 (2) Anemia ICD Codes: D64.9 - Anemia, unspecified SNOMED: 219130097 Qualifiers: Qualified Codes: D64.9 - Anemia, unspecified (3) Chronic pain ICD Codes: G89.29 - Other chronic pain SNOMED: 04892857 (4) HIV (human immunodeficiency virus infection) ICD Codes: B20 - Human immunodeficiency virus [HIV] disease SNOMED: 46243467 (5) Hypoalbuminemia ICD Codes: E88.09 - Other disorders of plasma-protein metabolism, not elsewhere classified SNOMED: 144368171 (6) Abdominal pain ICD Codes: R10.9 - Unspecified abdominal pain SNOMED: 19344717 (7) Hepatitis C ICD Codes: B19.20 - Unspecified viral hepatitis C without hepatic coma SNOMED: 55150265 (8) Constipated ICD Codes: K59.00 - Constipation, unspecified SNOMED: 23929131 (9) Polysubstance (excluding opioids) dependence ICD Codes: F19.20 - Other psychoactive substance dependence, uncomplicated SNOMED: 36639110 (10) Sepsis ICD Codes: A41.9 - Sepsis, unspecified organism SNOMED: 58896753 Qualifiers: Qualified Codes: A41.9 - Sepsis, unspecified organism Status: progressing Assessment/Plan antibiotic per id afebrile hcv reviewed chart and meds no change constipation Subjective ROS Limited/Unobtainable: Yes Allergies: Coded Allergies: No Known Allergies (Unverified , 08/06/17) Objective Last 24 Hour Vital Signs Date Time Temp Pulse Resp B/P (MAP) Pulse Ox O2 Delivery O2 Flow Rate FiO2 09/11/17 12:00 98.6 70 20 112/56 (74) 95 98.6 09/11/17 09:52 98.1 09/11/17 09:52 98.1 09/11/17 09:34 98.1 09/11/17 09:00 Room Air 09/11/17 08:53 98.1 09/11/17 08:00 98.1 67 19 123/59 (80) 96 98.1 09/11/17 07:30 70 18 Room Air 21 09/11/17 04:00 97.2 68 20 105/54 (71) 97 97.2 09/11/17 00:00 98.3 81 20 104/60 (75) 97 98.3 09/10/17 22:50 74 20 Room Air 21 09/10/17 21:00 Room Air 09/10/17 20:00 98.7 77 18 119/60 (79) 93 98.7 09/10/17 18:40 98.5 09/10/17 16:26 98.5 09/10/17 16:00 98.1 79 20 110/53 (72) 95 98.1 09/10/17 15:02 98.5 09/10/17 13:51 98.5 Intake and Output 09/10/17 09/11/17 19:00 07:00 Intake Total 1400 ml 500 ml Output Total 900 ml 900 ml Balance 500 ml -400 ml Intake Oral 800 ml IV Total 600 ml Other 500 ml Output Urine Total 900 ml 900 ml Height (Feet): 5 Height (Inches): 7.00 Weight (Pounds): 166 Cardiovascular: normal rate Respiratory/Chest: lungs clear Violette Rogers MD Sep 11, 2017 13:13
--- NOTE | 2017-09-11 14:49 | General Progress Note ---
Assessment/Plan Status: stable Assessment/Plan # Anemia of chronic disease. --> COntinue to closely monitor for improvement. --> Anemia w/u reviewed. Will trend CBC daily. --> Hgb goal >7 # Chronic pain. Pain management --> Pt on morphine # Hypokalemia. --> Replete potassium # HIV/AIDs --> Continue current meds # Sepsis --> Pt on abx # Epidural abscess --> MRI 09/10: No evidence of infectious spondylitis or epidural abscess The time the note was entered does not necessarily correspond to the time the patient was seen.. Subjective Date patient seen: Sep 11, 2017 ROS Limited/Unobtainable: Yes Hematologic/Lymphatic: Reports: anemia Allergies: Coded Allergies: No Known Allergies (Unverified , 08/06/17) All Systems: reviewed and negative except above Subjective Pt awake and alert. MRI shows no evidence of infectious spondylitis or epidural abscess. Pt refusing SNF placement, rather go home. Objective Last 24 Hour Vital Signs Date Time Temp Pulse Resp B/P (MAP) Pulse Ox O2 Delivery O2 Flow Rate FiO2 09/11/17 12:00 98.6 70 20 112/56 (74) 95 98.6 09/11/17 09:52 98.1 09/11/17 09:52 98.1 09/11/17 09:34 98.1 09/11/17 09:00 Room Air 09/11/17 08:53 98.1 09/11/17 08:00 98.1 67 19 123/59 (80) 96 98.1 09/11/17 07:30 70 18 Room Air 21 09/11/17 04:00 97.2 68 20 105/54 (71) 97 97.2 09/11/17 00:00 98.3 81 20 104/60 (75) 97 98.3 09/10/17 22:50 74 20 Room Air 21 09/10/17 21:00 Room Air 09/10/17 20:00 98.7 77 18 119/60 (79) 93 98.7 09/10/17 18:40 98.5 09/10/17 16:26 98.5 09/10/17 16:00 98.1 79 20 110/53 (72) 95 98.1 09/10/17 15:02 98.5 Intake and Output 09/10/17 09/11/17 19:00 07:00 Intake Total 1400 ml 500 ml Output Total 900 ml 900 ml Balance 500 ml -400 ml Intake Oral 800 ml IV Total 600 ml Other 500 ml Output Urine Total 900 ml 900 ml Height (Feet): 5 Height (Inches): 7.00 Weight (Pounds): 166 General Appearance: no apparent distress, alert EENT: PERRL/EOMI Neck: normal alignment Cardiovascular: normal peripheral pulses Respiratory/Chest: no respiratory distress Abdomen: soft Hi Cameron MD Sep 11, 2017 14:49
[2017-09-11 16:00] VITALS: BP 114/67
[2017-09-11 20:00] VITALS: BP 100/58
[2017-09-11] MEDS: Dyna-Hex 2% Top Sol 2oz TOPIC SCH (20:45)
--- NOTE | 2017-09-11 23:56 | Cardiology Progress Note ---
Assessment/Plan Assessment/Plan 1. Bacteremia, refused NURA, TTE did not reveal any valvular vegetations although there was technical difficulties. 2. s/p VATS 3. Epidural abscess 4. COPD Subjective Subjective No cardiac events. Refused NURA. Objective Last 24 Hour Vital Signs Date Time Temp Pulse Resp B/P (MAP) Pulse Ox O2 Delivery O2 Flow Rate FiO2 09/11/17 21:00 Room Air 09/11/17 20:35 85 20 Room Air 21 09/11/17 20:00 97.2 77 20 100/58 (72) 94 97.2 09/11/17 16:00 97.2 70 19 114/67 (83) 95 97.2 09/11/17 12:00 98.6 70 20 112/56 (74) 95 98.6 09/11/17 09:52 98.1 09/11/17 09:52 98.1 09/11/17 09:34 98.1 09/11/17 09:00 Room Air 09/11/17 08:53 98.1 09/11/17 08:00 98.1 67 19 123/59 (80) 96 98.1 09/11/17 07:30 70 18 Room Air 21 09/11/17 04:00 97.2 68 20 105/54 (71) 97 97.2 09/11/17 00:00 98.3 81 20 104/60 (75) 97 98.3 Intake and Output 09/10/17 09/11/17 19:00 07:00 Intake Total 1400 ml 500 ml Output Total 900 ml 900 ml Balance 500 ml -400 ml Intake Oral 800 ml IV Total 600 ml Other 500 ml Output Urine Total 900 ml 900 ml 2D Echo: LVEF 55-60%, Grade I LVDD Objective HEENT: Normocephalic, atraumatic, PERRLA, EOMI, No pale conjunctivae. No icterus. NECK: No JVD, no carotid bruit. CHEST: Normal breath sounds HEART: Normal S1 and S2, no murmurs, gallops or rubs. ABDOMEN: Soft and nontender, no hepatosplenomegaly, + BS. BACK: The patient has tenderness in the lower thoracic and lumbar area. EXTREMITIES: No edema , clubbing or cyanosis. Omid Tellez MD Sep 11, 2017 23:56
[2017-09-12] VITALS: BP 104/51
[2017-09-12] MEDS: Oxacillin 2 GM in NS 110 ML IVPB SCH ×7 (01:08→23:45)
[2017-09-12] MEDS: HYDROmorphone 1mg/ml Carpuject IVP PRN ×8 (01:09→23:44)
[2017-09-12 04:00] VITALS: BP 110/57
--- NOTE | 2017-09-12 07:48 | Infectious Diseases Prog Note ---
Assessment/Plan Assessment/Plan The patient is a 56-year-old male with multiple medical problems, who has recent empyema/bacteremia due to methicillin-sensitive Staphylococcus aureus ( Signed off AMA on 08/18/17 and had incomplete treatment; only 10 day of 42) -CT chest 08/25: Increased size of loculated right pleural effusion. Small air in the pleural space. Smaller residual left loculated pleural fluid with small air. Small to moderate fluid collection now in the left fissure. Bilateral lower lobe atelectasis/consolidations and air space disease,similar. -s/p VATS, partial pleurectomy, decortication 08/14 -OR findings : Bronchoscopy: A minimal amount of mucopurulent secretion was lavaged and suctioned clear. No endobronchial lesions. -VATS: There were noted to be numerous adhesions tethering along to the surrounding chest wall. The disease appears to be localized in the left lower lobe as the left upper lobe was virtually spared. - OR cx MSSA -CT chest 08/10: Left pleural effusion. Scalloped appearance suggests loculation. Presence of gas bubbles suggest infection by gas-forming organism. Gas bubbles appear trapped within the fluid rather than floating nondependently , indicating the fluid may be highly viscous. - -08/07 Bcx 4/4 MSSA; 08/08 4/4+; 08/10 2/4 +; 08/11 2/4+; 08/13 Neg x4; Bcx 08/27 Negx4; 08/30 Neg -08/28 ESR 126 <86 (08/10), CRP 12 < 27 (08/09) Mild leukocytosis, recurrent- resolved Low grade fever, intermittent; resolved Probable endocarditis (NURA was not done). Thoracic Discitis/Osteomyelitis and epidural abscess T7-T10- causing spinal cord compression; Possible Cervical spodylodiscitis w/ cord compression > Quadriparesis -MRI Cervical spine: Disc narrowing at C5-6. Marrow edema of the adjacent C5 and C6 vertebral bodies is noted. This is most likely due to Modic type I degenerative change and reactive marrow edema, particularly given the absence of edema within the disc. However, the possibility of spondylodiscitis as etiology of this finding, particularly in view of recent diagnosis of thoracic epidural abscess and in view of the slight degree of surrounding soft tissue edema, should also be considered. Severe spinal stenosis with cord compression at multiple levels extending from C3-4 through C5-6. Minimum AP dimension of the spinal canal 5 mm. Due to image degradation, it is uncertain as to whether there is significant cord edema/myelomalacia present. Multilevel severe neural foraminal stenosis as detailed level by level basis above -MRI Thoracic Spine: Suspicion of cord compression T7-T10 secondary to a posterior epidural abscess versus mass. Abscess favored given suspicion of spondylodiscitis at T9-10 as well as bilateral pleural effusions and pneumonia ( recent diagnosed on CT chest). Significantly limited study due to motion. -MRI Lumbar spine: Evidence of T9-10 discitis/osteomyelitis. Suspect related to previously described adjacent bilateral pleural empyemas. Evidence of epidural abscess measuring at least 8 x 11 mm in diameter, and extending at least 5 cm craniocaudad, at and above the T9 level. This results in significant spinal stenosis. Note that it is incompletely included in the imaging volume, and the cephalad extent above mid T7 is unclear. Recommend thoracic MRI for further evaluation. As mentioned above, evidence of bilateral empyemas, with bilateral loculated pleural fluid collections and extensive enhancement and edema of the adjacent soft tissue. Extensive multilevel degenerative changes elsewhere, as detailed on a level by level basis above - Repeat MRI 09/10/17 - Again demonstrated is evidence of epidural phlegmon and multiloculated epidural abscess extending from T7 through T10. However, this is decreased significantly in size and associated mass effect, with the individual abscess pockets as well as the mass effect from the phlegmon having decreased. Polysubstance abuse- refers last IVDA was ~7 yrs ago -UDS (prior admission) +THC, cocaine and amphetamines HIV - non progressor- per patient, never on Tx and CD4 >500 and UD VL -07/2017 CD4 510 (39.2%), VL ND Hep C s/p tx (20 years ago) with sustained virologic response COPD/asthma tobacco abuse (stopped smoking 3d [employer]) PLAN: -. The patient is on oxacillin day # -56 (the patient received 11 days of treatment prior to discharge). -monitor LFTs -08/25 SP IV Vanco and Cefepme #2 -08/18 SP IV Oxacillin #9 -08/10 SP Ceftriaxone d# 5 and IV Vancomycin #3 -08/06 SP Cefepime x1, Levaquin x1 -. Monitor CBC/CMP, temperatures - As patient with neurology symptoms would still recommend transfer to tertiary hospital for neurosurgical evaluation for epidural abscess and thoracic discitis and OM as it causing spinal cord compression -awaiting transfer: having too much difficulty finding an accepting facility -Needs also further chest drainage; currently refusing -will also need NURA to eval for endocarditis/valvular abscess ( pt refused ) Thank you consulting us on your patient. We will continue to follow Subjective Allergies: Coded Allergies: No Known Allergies (Unverified , 08/06/17) Subjective Patient with continue numbness of his lower extremities says he is in pain too. Up set about possibly going to rehab No N/V/D or fever Objective Vital Signs Last 24 Hour Vital Signs Date Time Temp Pulse Resp B/P (MAP) Pulse Ox O2 Delivery O2 Flow Rate FiO2 09/12/17 04:00 97.6 68 18 110/57 (74) 97.6 09/12/17 00:00 97.0 78 19 104/51 (68) 94 97.0 09/11/17 21:00 Room Air 09/11/17 20:35 85 20 Room Air 21 09/11/17 20:00 97.2 77 20 100/58 (72) 94 97.2 09/11/17 16:00 97.2 70 19 114/67 (83) 95 97.2 09/11/17 12:00 98.6 70 20 112/56 (74) 95 98.6 09/11/17 09:52 98.1 09/11/17 09:52 98.1 09/11/17 09:34 98.1 09/11/17 09:00 Room Air 09/11/17 08:53 98.1 09/11/17 08:00 98.1 67 19 123/59 (80) 96 98.1 Height (Feet): 5 Height (Inches): 7.00 Weight (Pounds): 162 Objective GEN: Uncomfortable HEENT: No pale conjunctivae. No icterus. NECK: No lymphadenopathy. CHEST: Clear. Incision site is healing. HEART: RRR, S1 and S2. ABDOMEN: Soft and nontender. BACK: The patient has tenderness in the lower thoracic and lumbar area. EXTREMITIES: No cyanosis, No [place] NEUROLOGIC: Awake and alert. +Babinski, brisk reflexes, LE>UE weakness. Numbness of lower ext B/L Current Medications Medications (Trade) Dose Ordered Sig/Veronica Route PRN Reason Start Time Stop Time Status Last Admin Dose Admin Acetaminophen (Tylenol) 650 mg Q4H PRN ORAL FEVER 08/25/17 08:15 09/24/17 08:14 08/27/17 13:06 Albuterol/ Ipratropium (Albuterol/ Ipratropium) 3 ml Q4H PRN HHN Shortness of Breath 09/08/17 10:15 09/13/17 10:14 Chlorhexidine Gluconate (Nishi-Hex 2%) 1 applic DAILY@2000 TOPIC 09/10/17 20:00 10/10/17 19:59 09/11/17 20:45 Dextrose (Dextrose 50%) 25 ml STAT PRN IV Hypoglycemia 08/25/17 08:15 09/24/17 08:14 Dextrose (Dextrose 50%) 50 ml STAT PRN IV Hypoglycemia 08/25/17 08:30 09/24/17 08:29 Docusate Sodium (Colace) 100 mg THREE TIMES A DAY ORAL 08/30/17 13:00 09/29/17 12:59 09/11/17 18:40 Duloxetine HCl (Cymbalta) 30 mg DAILY ORAL 08/25/17 09:00 09/24/17 08:59 09/11/17 08:51 Gabapentin (Neurontin) 300 mg THREE TIMES A DAY ORAL 08/25/17 09:00 09/24/17 08:59 09/11/17 18:40 Gadobutrol (Gadavist) 7.5 mmol NOW PRN IV Radiology Procedure 09/08/17 13:30 09/12/17 13:18 Gadobutrol (Gadavist) 7.5 mmol NOW PRN IV Radiology Procedure 09/08/17 13:30 09/12/17 13:18 Gadobutrol (Gadavist) 7.5 mmol NOW PRN IV Radiology Procedure 09/08/17 13:30 09/12/17 13:18 Heparin Sodium (Porcine) (Heparin 5000 units/ml) 5,000 units EVERY 12 HOURS SUBQ 08/25/17 09:00 09/24/17 08:59 09/11/17 20:47 Hydromorphone HCl (Dilaudid) 1 mg Q3H PRN IVP Severe Pain (Pain Scale 7-10) 09/10/17 16:15 09/17/17 16:14 09/12/17 07:39 Lactulose (Cephulac) 30 gm QIDPRN PRN ORAL constipation 09/06/17 16:15 10/06/17 16:14 Morphine Sulfate (MS Contin) 15 mg Q8H ORAL 09/06/17 16:00 09/13/17 15:59 09/11/17 23:57 Naloxone HCl (Narcan) 0.2 mg Q2H PRN IVP respritory depression 09/06/17 16:08 10/06/17 16:07 Ondansetron HCl (Zofran) 4 mg Q6H PRN IVP Nausea & Vomiting 08/25/17 08:15 09/24/17 08:14 09/04/17 05:23 Oxacillin Sodium 2 gm/Sodium Chloride 110 ml @ 220 mls/hr Q4HR IVPB 08/25/17 21:00 10/04/17 20:59 09/12/17 04:41 Polyethylene Glycol (Miralax) 17 gm DAILYPRN PRN ORAL Constipation 08/25/17 08:15 09/24/17 08:14 09/02/17 14:38 Sodium Chloride 1,000 ml @ 50 mls/hr Q20H IV 08/26/17 13:45 09/25/17 13:44 09/12/17 04:41 Murali Laguna M.D. Sep 12, 2017 07:48
[2017-09-12 08:00] VITALS: BP 117/65
[2017-09-12] MEDS: DULoxetine 30mg cap ORAL SCH (08:46)
[2017-09-12] MEDS: MS Contin 15mg tab ORAL SCH ×3 (08:47→23:44)
[2017-09-12] MEDS: Docusate 100mg cap ORAL SCH ×3 (08:47→17:23)
[2017-09-12] MEDS: Heparin 5000 units/ml inj SUBQ SCH ×2 (08:48→20:36)
[2017-09-12 12:11] VITALS: BP 104/56
--- NOTE | 2017-09-12 12:58 | General Progress Note ---
Assessment/Plan Problem List: (1) Drug abuse and dependence ICD Codes: F19.20 - Other psychoactive substance dependence, uncomplicated SNOMED: 7585523 (2) Anemia ICD Codes: D64.9 - Anemia, unspecified SNOMED: 722956230 Qualifiers: Qualified Codes: D64.9 - Anemia, unspecified (3) Chronic pain ICD Codes: G89.29 - Other chronic pain SNOMED: 46766776 (4) HIV (human immunodeficiency virus infection) ICD Codes: B20 - Human immunodeficiency virus [HIV] disease SNOMED: 15204092 (5) Hypoalbuminemia ICD Codes: E88.09 - Other disorders of plasma-protein metabolism, not elsewhere classified SNOMED: 542701279 (6) Abdominal pain ICD Codes: R10.9 - Unspecified abdominal pain SNOMED: 07159548 (7) Hepatitis C ICD Codes: B19.20 - Unspecified viral hepatitis C without hepatic coma SNOMED: 05429271 (8) Constipated ICD Codes: K59.00 - Constipation, unspecified SNOMED: 89666223 (9) Polysubstance (excluding opioids) dependence ICD Codes: F19.20 - Other psychoactive substance dependence, uncomplicated SNOMED: 68121488 (10) Sepsis ICD Codes: A41.9 - Sepsis, unspecified organism SNOMED: 12508152 Qualifiers: Qualified Codes: A41.9 - Sepsis, unspecified organism Assessment/Plan antibiotic per id afebrile hcv hiv drug addiction reviewed chart and labs Subjective ROS Limited/Unobtainable: Yes Allergies: Coded Allergies: No Known Allergies (Unverified , 08/06/17) Objective Last 24 Hour Vital Signs Date Time Temp Pulse Resp B/P (MAP) Pulse Ox O2 Delivery O2 Flow Rate FiO2 09/12/17 12:11 98.2 66 18 104/56 (72) 95 98.2 09/12/17 08:30 Room Air 09/12/17 08:00 97.7 74 18 117/65 (82) 94 97.7 09/12/17 04:00 97.6 68 18 110/57 (74) 97.6 09/12/17 00:00 97.0 78 19 104/51 (68) 94 97.0 09/11/17 21:00 Room Air 09/11/17 20:35 85 20 Room Air 21 09/11/17 20:00 97.2 77 20 100/58 (72) 94 97.2 09/11/17 16:00 97.2 70 19 114/67 (83) 95 97.2 Intake and Output 09/11/17 09/12/17 19:00 07:00 Intake Total 1640 ml 1130 ml Output Total 1850 ml 1250 ml Balance -210 ml -120 ml Intake Oral 750 ml 300 ml IV Total 890 ml 830 ml Output Urine Total 1850 ml 1250 ml Height (Feet): 5 Height (Inches): 7.00 Weight (Pounds): 162 Cardiovascular: regular rhythm Respiratory/Chest: lungs clear Abdomen: soft Violette Rogers MD Sep 12, 2017 12:58
--- NOTE | 2017-09-12 13:10 | Pulmonology Progress Note ---
Assessment/Plan Problems: (1) Epidural abscess (2) Sepsis (3) Osteomyelitis (4) COPD (chronic obstructive pulmonary disease) (5) Hypoalbuminemia (6) Hepatitis C (7) HIV (human immunodeficiency virus infection) (8) Pleural effusion Assessment/Plan New MRI Impression: Moderate to severe spinal stenosis, with impingement on the cord, extending from C3-4 to C5-6. Associated multilevel degenerative neural foraminal stenosis, as detailed above pain management no new complains spine surgery evaluation can not be done at this facility iv abx, ID note appreciated check electrolytes symptomatic treatment transfer to higher level of care I talked to the certified medical assistant of the health plan. He will refer the patient to [facility] again and have them call me inform me about the treatment plan if they think pt doesn't need surgery Subjective ROS Limited/Unobtainable: No Allergies: Coded Allergies: No Known Allergies (Unverified , 08/06/17) Objective Last 24 Hour Vital Signs Date Time Temp Pulse Resp B/P (MAP) Pulse Ox O2 Delivery O2 Flow Rate FiO2 09/12/17 12:11 98.2 66 18 104/56 (72) 95 98.2 09/12/17 08:30 Room Air 09/12/17 08:00 97.7 74 18 117/65 (82) 94 97.7 09/12/17 04:00 97.6 68 18 110/57 (74) 97.6 09/12/17 00:00 97.0 78 19 104/51 (68) 94 97.0 09/11/17 21:00 Room Air 09/11/17 20:35 85 20 Room Air 21 09/11/17 20:00 97.2 77 20 100/58 (72) 94 97.2 09/11/17 16:00 97.2 70 19 114/67 (83) 95 97.2 Intake and Output 09/11/17 09/12/17 19:00 07:00 Intake Total 1640 ml 1130 ml Output Total 1850 ml 1250 ml Balance -210 ml -120 ml Intake Oral 750 ml 300 ml IV Total 890 ml 830 ml Output Urine Total 1850 ml 1250 ml General Appearance: WD/WN HEENT: normocephalic, atraumatic Respiratory/Chest: chest wall non-tender, lungs clear Cardiovascular: normal peripheral pulses, normal rate Abdomen: normal bowel sounds, soft, non tender Genitourinary: normal external genitalia Extremities: no clubbing Skin: no lesions Neurologic/Psychiatric: insurance manager II-XII grossly normal Current Medications Medications (Trade) Dose Ordered Sig/Veronica Route PRN Reason Start Time Stop Time Status Last Admin Dose Admin Acetaminophen (Tylenol) 650 mg Q4H PRN ORAL FEVER 08/25/17 08:15 09/24/17 08:14 08/27/17 13:06 Albuterol/ Ipratropium (Albuterol/ Ipratropium) 3 ml Q4H PRN HHN Shortness of Breath 09/08/17 10:15 09/13/17 10:14 Chlorhexidine Gluconate (Nishi-Hex 2%) 1 applic DAILY@2000 TOPIC 09/10/17 20:00 10/10/17 19:59 09/11/17 20:45 Dextrose (Dextrose 50%) 25 ml STAT PRN IV Hypoglycemia 08/25/17 08:15 09/24/17 08:14 Dextrose (Dextrose 50%) 50 ml STAT PRN IV Hypoglycemia 08/25/17 08:30 09/24/17 08:29 Docusate Sodium (Colace) 100 mg THREE TIMES A DAY ORAL 08/30/17 13:00 09/29/17 12:59 09/12/17 08:47 Duloxetine HCl (Cymbalta) 30 mg DAILY ORAL 08/25/17 09:00 09/24/17 08:59 09/12/17 08:46 Gabapentin (Neurontin) 300 mg THREE TIMES A DAY ORAL 08/25/17 09:00 09/24/17 08:59 09/12/17 08:46 Gadobutrol (Gadavist) 7.5 mmol NOW PRN IV Radiology Procedure 09/08/17 13:30 09/12/17 13:18 Gadobutrol (Gadavist) 7.5 mmol NOW PRN IV Radiology Procedure 09/08/17 13:30 09/12/17 13:18 Gadobutrol (Gadavist) 7.5 mmol NOW PRN IV Radiology Procedure 09/08/17 13:30 09/12/17 13:18 Heparin Sodium (Porcine) (Heparin 5000 units/ml) 5,000 units EVERY 12 HOURS SUBQ 08/25/17 09:00 09/24/17 08:59 09/12/17 08:48 Hydromorphone HCl (Dilaudid) 1 mg Q3H PRN IVP Severe Pain (Pain Scale 7-10) 09/10/17 16:15 09/17/17 16:14 09/12/17 10:37 Lactulose (Cephulac) 30 gm QIDPRN PRN ORAL constipation 09/06/17 16:15 10/06/17 16:14 Morphine Sulfate (MS Contin) 15 mg Q8H ORAL 09/06/17 16:00 09/13/17 15:59 09/12/17 08:47 Naloxone HCl (Narcan) 0.2 mg Q2H PRN IVP respritory depression 09/06/17 16:08 10/06/17 16:07 Ondansetron HCl (Zofran) 4 mg Q6H PRN IVP Nausea & Vomiting 08/25/17 08:15 09/24/17 08:14 09/04/17 05:23 Oxacillin Sodium 2 gm/Sodium Chloride 110 ml @ 220 mls/hr Q4HR IVPB 08/25/17 21:00 10/04/17 20:59 09/12/17 08:47 Polyethylene Glycol (Miralax) 17 gm DAILYPRN PRN ORAL Constipation 08/25/17 08:15 09/24/17 08:14 09/02/17 14:38 Sodium Chloride 1,000 ml @ 50 mls/hr Q20H IV 08/26/17 13:45 09/25/17 13:44 09/12/17 04:41 Sally Cox MD Sep 12, 2017 13:10
--- NOTE | 2017-09-12 15:28 | General Progress Note ---
Assessment/Plan Assessment/Plan (1) Left sided wall chest pain (2) Lung effusion possible empyema (3) S/p VATS (4) Intercostal Neuropathy (5) Lumbar Spondylosis (6) T9-10 discitis/osteomyelitis with epidural abscess (7) Cervical spinal stenosis We will continue Dilaudid and Morphine ER. Recommend Neurosurgical consultation as per [place] ka[place] maori. D/w Dr. Stevens and he concurred. Subjective Date patient seen: Sep 12, 2017 Time patient seen: 03:00 - pm Allergies: Coded Allergies: No Known Allergies (Unverified , 08/06/17) Subjective REVIEW OF SYSTEMS: Denies rash, fever, chills, sweating, dizziness, drowsiness, blurred vision, sore throat, or change in weight. No nausea, vomiting, diarrhea, or blood in the stool or urine. He is complaining of left chest wall pain and back pain. SUBJECTIVE: Patient is in bed with continued pain which has been tolerated on the Morphine ER and Dilaudid IV using it as needed having 8 doses in the last 24hrs. Still waiting for transfer to higher level of care physician for Neurosurgical consult. Objective Last 24 Hour Vital Signs Date Time Temp Pulse Resp B/P (MAP) Pulse Ox O2 Delivery O2 Flow Rate FiO2 09/12/17 12:11 98.2 66 18 104/56 (72) 95 98.2 09/12/17 08:30 Room Air 09/12/17 08:00 97.7 74 18 117/65 (82) 94 97.7 09/12/17 04:00 97.6 68 18 110/57 (74) 97.6 09/12/17 00:00 97.0 78 19 104/51 (68) 94 97.0 09/11/17 21:00 Room Air 09/11/17 20:35 85 20 Room Air 21 09/11/17 20:00 97.2 77 20 100/58 (72) 94 97.2 09/11/17 16:00 97.2 70 19 114/67 (83) 95 97.2 Intake and Output 09/11/17 09/12/17 19:00 07:00 Intake Total 1640 ml 1130 ml Output Total 1850 ml 1250 ml Balance -210 ml -120 ml Intake Oral 750 ml 300 ml IV Total 890 ml 830 ml Output Urine Total 1850 ml 1250 ml Height (Feet): 5 Height (Inches): 7.00 Weight (Pounds): 162 Objective GENERAL: Alert, awake, and oriented. LUNGS: Decreased breath sounds bilaterally. HEART: S1 S2 Regular. ABDOMEN: Benign. EXTREMITIES: No cyanosis. No clubbing. No edema. NEURO: No changes. Mark Rausch Sep 12, 2017 15:28
[2017-09-12 16:00] VITALS: BP 110/53
--- NOTE | 2017-09-12 17:01 | Cardiology Progress Note ---
Assessment/Plan Assessment/Plan 1. Bacteremia, refused NURA, TTE did not reveal any valvular vegetations although there was technical difficulties due to poor acoustic images. 2. s/p VATS 3. Epidural abscess 4. COPD Subjective Subjective No cardiac events. Refused NURA recently. Objective Last 24 Hour Vital Signs Date Time Temp Pulse Resp B/P (MAP) Pulse Ox O2 Delivery O2 Flow Rate FiO2 09/12/17 12:11 98.2 66 18 104/56 (72) 95 98.2 09/12/17 08:30 Room Air 09/12/17 08:00 97.7 74 18 117/65 (82) 94 97.7 09/12/17 04:00 97.6 68 18 110/57 (74) 97.6 09/12/17 00:00 97.0 78 19 104/51 (68) 94 97.0 09/11/17 21:00 Room Air 09/11/17 20:35 85 20 Room Air 21 09/11/17 20:00 97.2 77 20 100/58 (72) 94 97.2 Intake and Output 09/11/17 09/12/17 19:00 07:00 Intake Total 1640 ml 1130 ml Output Total 1850 ml 1250 ml Balance -210 ml -120 ml Intake Oral 750 ml 300 ml IV Total 890 ml 830 ml Output Urine Total 1850 ml 1250 ml 2D Echo: LVEF 55-60%, Grade I LVDD Objective HEENT: Normocephalic, atraumatic, PERRLA, EOMI, No pale conjunctivae. No icterus. NECK: No JVD, no carotid bruit. CHEST: Normal breath sounds HEART: Normal S1 and S2, no murmurs, gallops or rubs. ABDOMEN: Soft and nontender, no hepatosplenomegaly, + BS. BACK: The patient has tenderness in the lower thoracic and lumbar area. EXTREMITIES: No edema , clubbing or cyanosis. Omid Tellez MD Sep 12, 2017 17:01
--- NOTE | 2017-09-12 18:32 | General Progress Note ---
Assessment/Plan Status: stable Assessment/Plan # Anemia of chronic disease. --> Continue to closely monitor for improvement. --> Anemia w/u reviewed. Will trend CBC daily. --> Hgb goal >7 # Chronic pain. Pain management --> Pt on morphine # Hypokalemia. --> Replete potassium # HIV/AIDs --> Continue current meds # Sepsis --> Pt on abx # Epidural abscess --> MRI 09/10: No evidence of infectious spondylitis or epidural abscess --> Requires transfer to [facility] for spinal surgeon evaluation. The time the note was entered does not necessarily correspond to the time the patient was seen.. Subjective Date patient seen: Sep 12, 2017 ROS Limited/Unobtainable: Yes Hematologic/Lymphatic: Reports: anemia Allergies: Coded Allergies: No Known Allergies (Unverified , 08/06/17) All Systems: reviewed and negative except above Subjective Pt awake and alert. No acute events. Pt c/o back pain. Pt requires transfer to [facility] for spinal surgeon evaluation. Objective Last 24 Hour Vital Signs Date Time Temp Pulse Resp B/P (MAP) Pulse Ox O2 Delivery O2 Flow Rate FiO2 09/12/17 12:11 98.2 66 18 104/56 (72) 95 98.2 09/12/17 08:30 Room Air 09/12/17 08:00 97.7 74 18 117/65 (82) 94 97.7 09/12/17 04:00 97.6 68 18 110/57 (74) 97.6 09/12/17 00:00 97.0 78 19 104/51 (68) 94 97.0 09/11/17 21:00 Room Air 09/11/17 20:35 85 20 Room Air 21 09/11/17 20:00 97.2 77 20 100/58 (72) 94 97.2 Intake and Output 09/11/17 09/12/17 19:00 07:00 Intake Total 1640 ml 1130 ml Output Total 1850 ml 1250 ml Balance -210 ml -120 ml Intake Oral 750 ml 300 ml IV Total 890 ml 830 ml Output Urine Total 1850 ml 1250 ml Height (Feet): 5 Height (Inches): 7.00 Weight (Pounds): 162 General Appearance: no apparent distress, alert EENT: PERRL/EOMI Neck: normal alignment Cardiovascular: normal peripheral pulses Respiratory/Chest: no respiratory distress Abdomen: soft Hi Cameron MD Sep 12, 2017 18:32
[2017-09-12 20:05] VITALS: BP 105/61
[2017-09-12] MEDS: Dyna-Hex 2% Top Sol 2oz TOPIC SCH (20:34)
[2017-09-13] VITALS: BP 92/44
[2017-09-13] MEDS: HYDROmorphone 1mg/ml Carpuject IVP PRN ×7 (02:50→22:22)
[2017-09-13 04:00] VITALS: BP 91/50
[2017-09-13] MEDS: Oxacillin 2 GM in NS 110 ML IVPB SCH ×5 (04:31→21:16)
[2017-09-13 08:00] VITALS: BP 95/49
[2017-09-13] MEDS: Docusate 100mg cap ORAL SCH ×4 (08:19→17:20)
[2017-09-13] MEDS: DULoxetine 30mg cap ORAL SCH (08:19)
[2017-09-13] MEDS: MS Contin 15mg tab ORAL SCH ×2 (08:19→16:30)
[2017-09-13] MEDS: Heparin 5000 units/ml inj SUBQ SCH ×2 (08:34→21:17)
--- NOTE | 2017-09-13 08:54 | General Progress Note ---
Assessment/Plan Status: stable Assessment/Plan # Anemia of chronic disease. --> Continue to closely monitor for improvement. --> Anemia w/u reviewed. Will trend CBC daily. --> Hgb goal >7 # Chronic pain. Pain management --> Pt on morphine # Hypokalemia. --> Replete potassium # HIV/AIDs --> Continue current meds # Sepsis --> Pt on abx # Epidural abscess --> MRI 09/10: No evidence of infectious spondylitis or epidural abscess --> Requires transfer to [facility] for spinal surgeon evaluation. The time the note was entered does not necessarily correspond to the time the patient was seen.. Subjective Date patient seen: Sep 13, 2017 ROS Limited/Unobtainable: Yes Hematologic/Lymphatic: Reports: anemia Allergies: Coded Allergies: No Known Allergies (Unverified , 08/06/17) All Systems: reviewed and negative except above Subjective Pt awake and alert. No acute events. Vitals are stable. Awaiting transfer. Objective Last 24 Hour Vital Signs Date Time Temp Pulse Resp B/P (MAP) Pulse Ox O2 Delivery O2 Flow Rate FiO2 09/13/17 04:00 99.4 68 18 91/50 (64) 96 99.4 09/13/17 00:00 99.6 72 18 92/44 (60) 97 99.6 09/12/17 21:00 Room Air 09/12/17 20:42 75 20 Room Air 21 09/12/17 20:05 99.5 73 19 105/61 (76) 96 99.5 09/12/17 16:00 99.0 82 18 110/53 (72) 99 99.0 09/12/17 12:11 98.2 66 18 104/56 (72) 95 98.2 Intake and Output 09/12/17 09/13/17 19:00 07:00 Intake Total 1660 ml 1180 ml Output Total 900 ml 1700 ml Balance 760 ml -520 ml Intake Oral 550 ml 300 ml IV Total 1110 ml 880 ml Output Urine Total 900 ml 1700 ml Height (Feet): 5 Height (Inches): 7.00 Weight (Pounds): 162 General Appearance: no apparent distress EENT: PERRL/EOMI Neck: normal alignment Cardiovascular: normal peripheral pulses Respiratory/Chest: normal breath sounds Abdomen: soft Hi Cameron MD Sep 13, 2017 08:54
[2017-09-13 12:00] VITALS: BP 100/55
--- NOTE | 2017-09-13 13:34 | General Progress Note ---
Assessment/Plan Assessment/Plan (1) Left sided wall chest pain (2) Lung effusion possible empyema (3) S/p VATS (4) Intercostal Neuropathy (5) Lumbar Spondylosis (6) T9-10 discitis/osteomyelitis with epidural abscess (7) Cervical spinal stenosis We will continue Dilaudid and Morphine ER. Recommend Neurosurgical consultation as per sales support engineer. D/w Dr. Stevens and he concurred. Subjective Date patient seen: Sep 13, 2017 Time patient seen: 01:00 - pm Allergies: Coded Allergies: No Known Allergies (Unverified , 08/06/17) Subjective REVIEW OF SYSTEMS: Denies rash, fever, chills, sweating, dizziness, drowsiness, blurred vision, sore throat, or change in weight. No nausea, vomiting, diarrhea, or blood in the stool or urine. He is complaining of left chest wall pain and back pain. SUBJECTIVE: Patient has continued pain and discomfort with numbness in his extremities. His pain has been tolerated on the Morphine ER and Dilaudid for breakthrough pain as needed. He is waiting for transfer for higher level of care. Objective Last 24 Hour Vital Signs Date Time Temp Pulse Resp B/P (MAP) Pulse Ox O2 Delivery O2 Flow Rate FiO2 09/13/17 12:00 98.4 72 20 100/55 (70) 99 98.4 09/13/17 09:00 Room Air 09/13/17 08:42 79 18 Room Air 21 09/13/17 08:00 99.0 65 18 95/49 (64) 95 99.0 09/13/17 04:00 99.4 68 18 91/50 (64) 96 99.4 09/13/17 00:00 99.6 72 18 92/44 (60) 97 99.6 09/12/17 21:00 Room Air 09/12/17 20:42 75 20 Room Air 21 09/12/17 20:05 99.5 73 19 105/61 (76) 96 99.5 09/12/17 16:00 99.0 82 18 110/53 (72) 99 99.0 Intake and Output 09/12/17 09/13/17 19:00 07:00 Intake Total 1660 ml 1180 ml Output Total 900 ml 1700 ml Balance 760 ml -520 ml Intake Oral 550 ml 300 ml IV Total 1110 ml 880 ml Output Urine Total 900 ml 1700 ml Height (Feet): 5 Height (Inches): 7.00 Weight (Pounds): 162 Objective GENERAL: Alert, awake, and oriented. LUNGS: Decreased breath sounds bilaterally. HEART: S1 S2 Regular. ABDOMEN: Benign. EXTREMITIES: No cyanosis. No clubbing. No edema. NEURO: No changes. Mark Rausch Sep 13, 2017 13:34
--- NOTE | 2017-09-13 14:31 | Pulmonology Progress Note ---
Assessment/Plan Problems: (1) Epidural abscess (2) Sepsis (3) Osteomyelitis (4) COPD (chronic obstructive pulmonary disease) (5) Hypoalbuminemia (6) Hepatitis C (7) HIV (human immunodeficiency virus infection) (8) Pleural effusion Assessment/Plan still trying to refer to higher level of care Impression: Moderate to severe spinal stenosis, with impingement on the cord, extending from C3-4 to C5-6. Associated multilevel degenerative neural foraminal stenosis, as detailed above pain management no new complains spine surgery evaluation can not be done at this facility iv abx, ID note appreciated check electrolytes symptomatic treatment transfer to higher level of care Subjective ROS Limited/Unobtainable: No Constitutional: Reports: no symptoms HEENT: Repors: no symptoms Respiratory: Reports: no symptoms Allergies: Coded Allergies: No Known Allergies (Unverified , 08/06/17) Objective Last 24 Hour Vital Signs Date Time Temp Pulse Resp B/P (MAP) Pulse Ox O2 Delivery O2 Flow Rate FiO2 09/13/17 12:00 98.4 72 20 100/55 (70) 99 98.4 09/13/17 09:00 Room Air 09/13/17 08:42 79 18 Room Air 21 09/13/17 08:00 99.0 65 18 95/49 (64) 95 99.0 09/13/17 04:00 99.4 68 18 91/50 (64) 96 99.4 09/13/17 00:00 99.6 72 18 92/44 (60) 97 99.6 09/12/17 21:00 Room Air 09/12/17 20:42 75 20 Room Air 21 09/12/17 20:05 99.5 73 19 105/61 (76) 96 99.5 09/12/17 16:00 99.0 82 18 110/53 (72) 99 99.0 Intake and Output 09/12/17 09/13/17 19:00 07:00 Intake Total 1660 ml 1180 ml Output Total 900 ml 1700 ml Balance 760 ml -520 ml Intake Oral 550 ml 300 ml IV Total 1110 ml 880 ml Output Urine Total 900 ml 1700 ml General Appearance: WD/WN HEENT: normocephalic, atraumatic Respiratory/Chest: chest wall non-tender, lungs clear Cardiovascular: normal peripheral pulses, regular rhythm Abdomen: normal bowel sounds, no organomegaly Extremities: no cyanosis Skin: no rash Current Medications Medications (Trade) Dose Ordered Sig/Veronica Route PRN Reason Start Time Stop Time Status Last Admin Dose Admin Acetaminophen (Tylenol) 650 mg Q4H PRN ORAL FEVER 08/25/17 08:15 09/24/17 08:14 08/27/17 13:06 Chlorhexidine Gluconate (Nishi-Hex 2%) 1 applic DAILY@2000 TOPIC 09/10/17 20:00 10/10/17 19:59 09/12/17 20:34 Dextrose (Dextrose 50%) 25 ml STAT PRN IV Hypoglycemia 08/25/17 08:15 09/24/17 08:14 Dextrose (Dextrose 50%) 50 ml STAT PRN IV Hypoglycemia 08/25/17 08:30 09/24/17 08:29 Docusate Sodium (Colace) 100 mg THREE TIMES A DAY ORAL 08/30/17 13:00 09/29/17 12:59 09/12/17 17:23 Duloxetine HCl (Cymbalta) 30 mg DAILY ORAL 08/25/17 09:00 09/24/17 08:59 09/13/17 08:19 Gabapentin (Neurontin) 300 mg THREE TIMES A DAY ORAL 08/25/17 09:00 09/24/17 08:59 09/13/17 12:34 Heparin Sodium (Porcine) (Heparin 5000 units/ml) 5,000 units EVERY 12 HOURS SUBQ 08/25/17 09:00 09/24/17 08:59 09/13/17 08:34 Hydromorphone HCl (Dilaudid) 1 mg Q3H PRN IVP Severe Pain (Pain Scale 7-10) 09/10/17 16:15 09/17/17 16:14 09/13/17 12:34 Lactulose (Cephulac) 30 gm QIDPRN PRN ORAL constipation 09/06/17 16:15 10/06/17 16:14 Morphine Sulfate (MS Contin) 15 mg Q8H ORAL 09/12/17 16:00 09/19/17 15:59 09/13/17 08:19 Naloxone HCl (Narcan) 0.2 mg Q2H PRN IVP respritory depression 09/06/17 16:08 10/06/17 16:07 Ondansetron HCl (Zofran) 4 mg Q6H PRN IVP Nausea & Vomiting 08/25/17 08:15 09/24/17 08:14 09/04/17 05:23 Oxacillin Sodium 2 gm/Sodium Chloride 110 ml @ 220 mls/hr Q4HR IVPB 08/25/17 21:00 10/04/17 20:59 09/13/17 12:34 Polyethylene Glycol (Miralax) 17 gm DAILYPRN PRN ORAL Constipation 08/25/17 08:15 09/24/17 08:14 09/02/17 14:38 Sodium Chloride 1,000 ml @ 50 mls/hr Q20H IV 08/26/17 13:45 09/25/17 13:44 09/13/17 02:01 Sally Cox MD Sep 13, 2017 14:30
[2017-09-13 16:00] VITALS: BP 101/50
--- NOTE | 2017-09-13 16:47 | Cardiology Progress Note ---
Assessment/Plan Assessment/Plan 1. Bacteremia, refused NURA, TTE did not reveal any valvular vegetations although there was technical difficulties due to poor acoustic images. 2. s/p VATS 3. Epidural abscess 4. COPD Subjective Subjective No cardiac events. Refused NURA recently. Objective Last 24 Hour Vital Signs Date Time Temp Pulse Resp B/P (MAP) Pulse Ox O2 Delivery O2 Flow Rate FiO2 09/13/17 12:00 98.4 72 20 100/55 (70) 99 98.4 09/13/17 09:00 Room Air 09/13/17 08:42 79 18 Room Air 21 09/13/17 08:00 99.0 65 18 95/49 (64) 95 99.0 09/13/17 04:00 99.4 68 18 91/50 (64) 96 99.4 09/13/17 00:00 99.6 72 18 92/44 (60) 97 99.6 09/12/17 21:00 Room Air 09/12/17 20:42 75 20 Room Air 21 09/12/17 20:05 99.5 73 19 105/61 (76) 96 99.5 Intake and Output 09/12/17 09/13/17 19:00 07:00 Intake Total 1660 ml 1180 ml Output Total 900 ml 1700 ml Balance 760 ml -520 ml Intake Oral 550 ml 300 ml IV Total 1110 ml 880 ml Output Urine Total 900 ml 1700 ml Objective HEENT: Normocephalic, atraumatic, PERRLA, EOMI, No pale conjunctivae. No icterus. NECK: No JVD, no carotid bruit. CHEST: Normal breath sounds HEART: Normal S1 and S2, no murmurs, gallops or rubs. ABDOMEN: Soft and nontender, no hepatosplenomegaly, + BS. BACK: The patient has tenderness in the lower thoracic and lumbar area. EXTREMITIES: No edema , clubbing or cyanosis. Omid Tellez MD Sep 13, 2017 16:47
--- NOTE | 2017-09-13 17:32 | Infectious Diseases Prog Note ---
Assessment/Plan Assessment/Plan The patient is a 56-year-old male with multiple medical problems, who has recent empyema/bacteremia due to methicillin-sensitive Staphylococcus aureus ( Signed off AMA on 08/18/17 and had incomplete treatment; only 10 day of 42) -CT chest 08/25: Increased size of loculated right pleural effusion. Small air in the pleural space. Smaller residual left loculated pleural fluid with small air. Small to moderate fluid collection now in the left fissure. Bilateral lower lobe atelectasis/consolidations and air space disease,similar. -s/p VATS, partial pleurectomy, decortication 08/14 -OR findings : Bronchoscopy: A minimal amount of mucopurulent secretion was lavaged and suctioned clear. No endobronchial lesions. -VATS: There were noted to be numerous adhesions tethering along to the surrounding chest wall. The disease appears to be localized in the left lower lobe as the left upper lobe was virtually spared. - OR cx MSSA -CT chest 08/10: Left pleural effusion. Scalloped appearance suggests loculation. Presence of gas bubbles suggest infection by gas-forming organism. Gas bubbles appear trapped within the fluid rather than floating nondependently , indicating the fluid may be highly viscous. - -08/07 Bcx 4/4 MSSA; 08/08 4/4+; 08/10 2/4 +; 08/11 2/4+; 08/13 Neg x4; Bcx 08/27 Negx4; 08/30 Neg -08/28 ESR 126 <86 (08/10), CRP 12 < 27 (08/09) Mild leukocytosis, recurrent- resolved Low grade fever, intermittent; resolved Probable endocarditis (NURA was not done). Thoracic Discitis/Osteomyelitis and epidural abscess T7-T10- causing spinal cord compression; Possible Cervical spodylodiscitis w/ cord compression > Quadriparesis -MRI Cervical spine: Disc narrowing at C5-6. Marrow edema of the adjacent C5 and C6 vertebral bodies is noted. This is most likely due to Modic type I degenerative change and reactive marrow edema, particularly given the absence of edema within the disc. However, the possibility of spondylodiscitis as etiology of this finding, particularly in view of recent diagnosis of thoracic epidural abscess and in view of the slight degree of surrounding soft tissue edema, should also be considered. Severe spinal stenosis with cord compression at multiple levels extending from C3-4 through C5-6. Minimum AP dimension of the spinal canal 5 mm. Due to image degradation, it is uncertain as to whether there is significant cord edema/myelomalacia present. Multilevel severe neural foraminal stenosis as detailed level by level basis above -MRI Thoracic Spine: Suspicion of cord compression T7-T10 secondary to a posterior epidural abscess versus mass. Abscess favored given suspicion of spondylodiscitis at T9-10 as well as bilateral pleural effusions and pneumonia ( recent diagnosed on CT chest). Significantly limited study due to motion. -MRI Lumbar spine: Evidence of T9-10 discitis/osteomyelitis. Suspect related to previously described adjacent bilateral pleural empyemas. Evidence of epidural abscess measuring at least 8 x 11 mm in diameter, and extending at least 5 cm craniocaudad, at and above the T9 level. This results in significant spinal stenosis. Note that it is incompletely included in the imaging volume, and the cephalad extent above mid T7 is unclear. Recommend thoracic MRI for further evaluation. As mentioned above, evidence of bilateral empyemas, with bilateral loculated pleural fluid collections and extensive enhancement and edema of the adjacent soft tissue. Extensive multilevel degenerative changes elsewhere, as detailed on a level by level basis above - Repeat MRI 09/10/17 - Again demonstrated is evidence of epidural phlegmon and multiloculated epidural abscess extending from T7 through T10. However, this is decreased significantly in size and associated mass effect, with the individual abscess pockets as well as the mass effect from the phlegmon having decreased. Polysubstance abuse- refers last IVDA was ~7 yrs ago -UDS (prior admission) +THC, cocaine and amphetamines HIV - non progressor- per patient, never on Tx and CD4 >500 and UD VL -07/2017 CD4 510 (39.2%), VL ND Hep C s/p tx (20 years ago) with sustained virologic response COPD/asthma tobacco abuse (stopped smoking 3d [employer]) PLAN: -. The patient is on oxacillin day # -56 (the patient received 11 days of treatment prior to discharge). -monitor LFTs -08/25 SP IV Vanco and Cefepme #2 -08/18 SP IV Oxacillin #9 -08/10 SP Ceftriaxone d# 5 and IV Vancomycin #3 -08/06 SP Cefepime x1, Levaquin x1 -. Monitor CBC/CMP, temperatures - As patient with neurology symptoms would still recommend neurosurgery evaluation and possible transfer to tertiary hospital for neurosurgical evaluation for epidural abscess and thoracic discitis and OM as it causing spinal cord compression -awaiting transfer: having too much difficulty finding an accepting facility -Needs also further chest drainage; currently refusing -will also need NURA to eval for endocarditis/valvular abscess ( pt refused ) Thank you consulting us on your patient. We will continue to follow Subjective Allergies: Coded Allergies: No Known Allergies (Unverified , 08/06/17) Subjective Patient with continue numbness of his lower extremities says may be getting better. No N/V/D or fever Objective Vital Signs Last 24 Hour Vital Signs Date Time Temp Pulse Resp B/P (MAP) Pulse Ox O2 Delivery O2 Flow Rate FiO2 09/13/17 16:00 99.2 71 18 101/50 (67) 95 99.2 09/13/17 12:00 98.4 72 20 100/55 (70) 99 98.4 09/13/17 09:00 Room Air 09/13/17 08:42 79 18 Room Air 21 09/13/17 08:00 99.0 65 18 95/49 (64) 95 99.0 09/13/17 04:00 99.4 68 18 91/50 (64) 96 99.4 09/13/17 00:00 99.6 72 18 92/44 (60) 97 99.6 09/12/17 21:00 Room Air 09/12/17 20:42 75 20 Room Air 21 09/12/17 20:05 99.5 73 19 105/61 (76) 96 99.5 Height (Feet): 5 Height (Inches): 7.00 Weight (Pounds): 162 Objective GEN: Laying comfortably in Bed HEENT: No pale conjunctivae. No icterus. NECK: No lymphadenopathy. CHEST: Clear. Incision site is healing. HEART: RRR, S1 and S2. ABDOMEN: Soft and nontender. BACK: The patient has tenderness in the lower thoracic and lumbar area. EXTREMITIES: No cyanosis, No [place] NEUROLOGIC: Awake and alert. +Babinski, brisk reflexes, LE>UE weakness. Numbness of lower ext B/L Current Medications Medications (Trade) Dose Ordered Sig/Veronica Route PRN Reason Start Time Stop Time Status Last Admin Dose Admin Acetaminophen (Tylenol) 650 mg Q4H PRN ORAL FEVER 08/25/17 08:15 09/24/17 08:14 08/27/17 13:06 Chlorhexidine Gluconate (Nishi-Hex 2%) 1 applic DAILY@2000 TOPIC 09/10/17 20:00 10/10/17 19:59 09/12/17 20:34 Dextrose (Dextrose 50%) 25 ml STAT PRN IV Hypoglycemia 08/25/17 08:15 09/24/17 08:14 Dextrose (Dextrose 50%) 50 ml STAT PRN IV Hypoglycemia 08/25/17 08:30 09/24/17 08:29 Docusate Sodium (Colace) 100 mg THREE TIMES A DAY ORAL 08/30/17 13:00 09/29/17 12:59 09/12/17 17:23 Duloxetine HCl (Cymbalta) 30 mg DAILY ORAL 08/25/17 09:00 09/24/17 08:59 09/13/17 08:19 Gabapentin (Neurontin) 300 mg THREE TIMES A DAY ORAL 08/25/17 09:00 09/24/17 08:59 09/13/17 17:20 Heparin Sodium (Porcine) (Heparin 5000 units/ml) 5,000 units EVERY 12 HOURS SUBQ 08/25/17 09:00 09/24/17 08:59 09/13/17 08:34 Hydromorphone HCl (Dilaudid) 1 mg Q3H PRN IVP Severe Pain (Pain Scale 7-10) 09/10/17 16:15 09/17/17 16:14 09/13/17 12:34 Lactulose (Cephulac) 30 gm QIDPRN PRN ORAL constipation 09/06/17 16:15 10/06/17 16:14 Morphine Sulfate (MS Contin) 15 mg Q8H ORAL 09/12/17 16:00 09/19/17 15:59 09/13/17 16:30 Naloxone HCl (Narcan) 0.2 mg Q2H PRN IVP respritory depression 09/06/17 16:08 10/06/17 16:07 Ondansetron HCl (Zofran) 4 mg Q6H PRN IVP Nausea & Vomiting 08/25/17 08:15 09/24/17 08:14 09/04/17 05:23 Oxacillin Sodium 2 gm/Sodium Chloride 110 ml @ 220 mls/hr Q4HR IVPB 08/25/17 21:00 10/04/17 20:59 09/13/17 16:30 Polyethylene Glycol (Miralax) 17 gm DAILYPRN PRN ORAL Constipation 08/25/17 08:15 09/24/17 08:14 09/02/17 14:38 Sodium Chloride 1,000 ml @ 50 mls/hr Q20H IV 08/26/17 13:45 09/25/17 13:44 09/13/17 02:01 Murali Laguna M.D. Sep 13, 2017 17:32
[2017-09-13 20:00] VITALS: BP 105/57
[2017-09-13] MEDS: Dyna-Hex 2% Top Sol 2oz TOPIC SCH (21:16)
--- NOTE | 2017-09-13 21:16 | Cardiology Progress Note ---
Assessment/Plan Assessment/Plan 1. Bacteremia, refused NURA, TTE did not reveal any valvular vegetations although there was technical difficulties due to poor acoustic images. 2. s/p VATS 3. Epidural abscess 4. COPD Subjective Subjective Refused NURA. No cardiac events. Objective Last 24 Hour Vital Signs Date Time Temp Pulse Resp B/P (MAP) Pulse Ox O2 Delivery O2 Flow Rate FiO2 09/13/17 20:32 72 18 Room Air 21 09/13/17 16:00 99.2 71 18 101/50 (67) 95 99.2 09/13/17 12:00 98.4 72 20 100/55 (70) 99 98.4 09/13/17 09:00 Room Air 09/13/17 08:42 79 18 Room Air 21 09/13/17 08:00 99.0 65 18 95/49 (64) 95 99.0 09/13/17 04:00 99.4 68 18 91/50 (64) 96 99.4 09/13/17 00:00 99.6 72 18 92/44 (60) 97 99.6 Intake and Output 09/12/17 09/13/17 19:00 07:00 Intake Total 1660 ml 1180 ml Output Total 900 ml 1700 ml Balance 760 ml -520 ml Intake Oral 550 ml 300 ml IV Total 1110 ml 880 ml Output Urine Total 900 ml 1700 ml 2D Echo: LVEF 55-60%, Grade I LVDD Objective HEENT: Normocephalic, atraumatic, PERRLA, EOMI, No pale conjunctivae. No icterus. NECK: No JVD, no carotid bruit. CHEST: Normal breath sounds HEART: Normal S1 and S2, no murmurs, gallops or rubs. ABDOMEN: Soft and nontender, no hepatosplenomegaly, + BS. BACK: The patient has tenderness in the lower thoracic and lumbar area. EXTREMITIES: No edema , clubbing or cyanosis. Omid Tellez MD Sep 13, 2017 21:16
--- NOTE | 2017-09-13 21:21 | General Progress Note ---
Assessment/Plan Problem List: (1) Drug abuse and dependence ICD Codes: F19.20 - Other psychoactive substance dependence, uncomplicated SNOMED: 2892455 (2) Anemia ICD Codes: D64.9 - Anemia, unspecified SNOMED: 533498446 Qualifiers: Qualified Codes: D64.9 - Anemia, unspecified (3) Chronic pain ICD Codes: G89.29 - Other chronic pain SNOMED: 92216945 (4) HIV (human immunodeficiency virus infection) ICD Codes: B20 - Human immunodeficiency virus [HIV] disease SNOMED: 13876596 (5) Hypoalbuminemia ICD Codes: E88.09 - Other disorders of plasma-protein metabolism, not elsewhere classified SNOMED: 852768197 (6) Abdominal pain ICD Codes: R10.9 - Unspecified abdominal pain SNOMED: 57213065 (7) Hepatitis C ICD Codes: B19.20 - Unspecified viral hepatitis C without hepatic coma SNOMED: 02967016 (8) Constipated ICD Codes: K59.00 - Constipation, unspecified SNOMED: 04637501 (9) Polysubstance (excluding opioids) dependence ICD Codes: F19.20 - Other psychoactive substance dependence, uncomplicated SNOMED: 97204901 (10) Sepsis ICD Codes: A41.9 - Sepsis, unspecified organism SNOMED: 09601710 Qualifiers: Qualified Codes: A41.9 - Sepsis, unspecified organism Status: progressing Assessment/Plan no change no vomit hcv hiv immune deficiency drug addiction reviewed chart and labs Subjective ROS Limited/Unobtainable: Yes Allergies: Coded Allergies: No Known Allergies (Unverified , 08/06/17) Objective Last 24 Hour Vital Signs Date Time Temp Pulse Resp B/P (MAP) Pulse Ox O2 Delivery O2 Flow Rate FiO2 09/13/17 20:32 72 18 Room Air 21 09/13/17 16:00 99.2 71 18 101/50 (67) 95 99.2 09/13/17 12:00 98.4 72 20 100/55 (70) 99 98.4 09/13/17 09:00 Room Air 09/13/17 08:42 79 18 Room Air 21 09/13/17 08:00 99.0 65 18 95/49 (64) 95 99.0 09/13/17 04:00 99.4 68 18 91/50 (64) 96 99.4 09/13/17 00:00 99.6 72 18 92/44 (60) 97 99.6 Intake and Output 09/12/17 09/13/17 19:00 07:00 Intake Total 1660 ml 1180 ml Output Total 900 ml 1700 ml Balance 760 ml -520 ml Intake Oral 550 ml 300 ml IV Total 1110 ml 880 ml Output Urine Total 900 ml 1700 ml Height (Feet): 5 Height (Inches): 7.00 Weight (Pounds): 162 Respiratory/Chest: lungs clear Abdomen: non tender Violette Rogers MD Sep 13, 2017 21:21
[2017-09-14] VITALS: BP 101/51
[2017-09-14] MEDS: HYDROmorphone 1mg/ml Carpuject IVP PRN ×8 (01:25→23:42)
[2017-09-14] MEDS: Oxacillin 2 GM in NS 110 ML IVPB SCH ×6 (01:25→20:09)
[2017-09-14 04:00] VITALS: BP 113/58
--- NOTE | 2017-09-14 07:40 | Infectious Diseases Prog Note ---
Assessment/Plan Assessment/Plan The patient is a 56-year-old male with multiple medical problems, who has recent empyema/bacteremia due to methicillin-sensitive Staphylococcus aureus ( Signed off AMA on 08/18/17 and had incomplete treatment; only 10 day of 42) -CT chest 08/25: Increased size of loculated right pleural effusion. Small air in the pleural space. Smaller residual left loculated pleural fluid with small air. Small to moderate fluid collection now in the left fissure. Bilateral lower lobe atelectasis/consolidations and air space disease,similar. -s/p VATS, partial pleurectomy, decortication 08/14 -OR findings : Bronchoscopy: A minimal amount of mucopurulent secretion was lavaged and suctioned clear. No endobronchial lesions. -VATS: There were noted to be numerous adhesions tethering along to the surrounding chest wall. The disease appears to be localized in the left lower lobe as the left upper lobe was virtually spared. - OR cx MSSA -CT chest 08/10: Left pleural effusion. Scalloped appearance suggests loculation. Presence of gas bubbles suggest infection by gas-forming organism. Gas bubbles appear trapped within the fluid rather than floating nondependently , indicating the fluid may be highly viscous. - -08/07 Bcx 4/4 MSSA; 08/08 4/4+; 08/10 2/4 +; 08/11 2/4+; 08/13 Neg x4; Bcx 08/27 Negx4; 08/30 Neg -08/28 ESR 126 <86 (08/10), CRP 12 < 27 (08/09) Mild leukocytosis, recurrent- resolved Low grade fever, intermittent; resolved Probable endocarditis (NURA was not done). Thoracic Discitis/Osteomyelitis and epidural abscess T7-T10- causing spinal cord compression; Possible Cervical spodylodiscitis w/ cord compression > Quadriparesis -MRI Cervical spine: Disc narrowing at C5-6. Marrow edema of the adjacent C5 and C6 vertebral bodies is noted. This is most likely due to Modic type I degenerative change and reactive marrow edema, particularly given the absence of edema within the disc. However, the possibility of spondylodiscitis as etiology of this finding, particularly in view of recent diagnosis of thoracic epidural abscess and in view of the slight degree of surrounding soft tissue edema, should also be considered. Severe spinal stenosis with cord compression at multiple levels extending from C3-4 through C5-6. Minimum AP dimension of the spinal canal 5 mm. Due to image degradation, it is uncertain as to whether there is significant cord edema/myelomalacia present. Multilevel severe neural foraminal stenosis as detailed level by level basis above -MRI Thoracic Spine: Suspicion of cord compression T7-T10 secondary to a posterior epidural abscess versus mass. Abscess favored given suspicion of spondylodiscitis at T9-10 as well as bilateral pleural effusions and pneumonia ( recent diagnosed on CT chest). Significantly limited study due to motion. -MRI Lumbar spine: Evidence of T9-10 discitis/osteomyelitis. Suspect related to previously described adjacent bilateral pleural empyemas. Evidence of epidural abscess measuring at least 8 x 11 mm in diameter, and extending at least 5 cm craniocaudad, at and above the T9 level. This results in significant spinal stenosis. Note that it is incompletely included in the imaging volume, and the cephalad extent above mid T7 is unclear. Recommend thoracic MRI for further evaluation. As mentioned above, evidence of bilateral empyemas, with bilateral loculated pleural fluid collections and extensive enhancement and edema of the adjacent soft tissue. Extensive multilevel degenerative changes elsewhere, as detailed on a level by level basis above - Repeat MRI 09/10/17 - Again demonstrated is evidence of epidural phlegmon and multiloculated epidural abscess extending from T7 through T10. However, this is decreased significantly in size and associated mass effect, with the individual abscess pockets as well as the mass effect from the phlegmon having decreased. Polysubstance abuse- refers last IVDA was ~7 yrs ago -UDS (prior admission) +THC, cocaine and amphetamines HIV - non progressor- per patient, never on Tx and CD4 >500 and UD VL -07/2017 CD4 510 (39.2%), VL ND Hep C s/p tx (20 years ago) with sustained virologic response COPD/asthma tobacco abuse (stopped smoking 3d [employer]MI[employer]) PLAN: -. The patient is on oxacillin day # /-56 (the patient received 11 days of treatment prior to discharge). -monitor LFTs -08/25 SP IV Vanco and Cefepme #2 -08/18 SP IV Oxacillin #9 -08/10 SP Ceftriaxone d# 5 and IV Vancomycin #3 -08/06 SP Cefepime x1, Levaquin x1 -. Monitor CBC/CMP, temperatures - As patient with neurology symptoms would still recommend neurosurgery evaluation and possible transfer to tertiary hospital for neurosurgical evaluation for epidural abscess and thoracic discitis and OM as it causing spinal cord compression -awaiting transfer: having too much difficulty finding an accepting facility -Needs also further chest drainage; currently refusing -will also need NURA to eval for endocarditis/valvular abscess ( pt refused ) Thank you consulting us on your patient. We will continue to follow Subjective Allergies: Coded Allergies: No Known Allergies (Unverified , 08/06/17) Subjective Patient still pending surgical eval NAD No N/V/D or fever Objective Vital Signs Last 24 Hour Vital Signs Date Time Temp Pulse Resp B/P (MAP) Pulse Ox O2 Delivery O2 Flow Rate FiO2 09/14/17 04:00 97.2 64 19 113/58 (76) 93 97.2 09/14/17 00:00 98.4 65 18 101/51 (68) 97 98.4 09/13/17 21:00 Room Air 09/13/17 20:32 72 18 Room Air 21 09/13/17 20:00 98.7 74 18 105/57 (73) 95 98.7 09/13/17 16:00 99.2 71 18 101/50 (67) 95 99.2 09/13/17 12:00 98.4 72 20 100/55 (70) 99 98.4 09/13/17 09:00 Room Air 09/13/17 08:42 79 18 Room Air 21 09/13/17 08:00 99.0 65 18 95/49 (64) 95 99.0 Height (Feet): 5 Height (Inches): 7.00 Weight (Pounds): 162 Objective GEN: Laying in bed, NAD HEENT: NCAT, MMM, No icterus. CHEST: CTAB. Incision site is healed. HEART: RRR, S1 and S2. ABDOMEN: Soft and nontender. Stewart in place BACK: The patient has tenderness in the lower thoracic and lumbar area. EXTREMITIES: No cyanosis, No Edema NEUROLOGIC: Awake and alert. +Babinski, brisk reflexes, LE>UE weakness. Numbness of lower ext B/L Current Medications Medications (Trade) Dose Ordered Sig/Veronica Route PRN Reason Start Time Stop Time Status Last Admin Dose Admin Acetaminophen (Tylenol) 650 mg Q4H PRN ORAL FEVER 08/25/17 08:15 09/24/17 08:14 08/27/17 13:06 Chlorhexidine Gluconate (Nishi-Hex 2%) 1 applic DAILY@2000 TOPIC 09/10/17 20:00 10/10/17 19:59 09/13/17 21:16 Dextrose (Dextrose 50%) 25 ml STAT PRN IV Hypoglycemia 08/25/17 08:15 09/24/17 08:14 Dextrose (Dextrose 50%) 50 ml STAT PRN IV Hypoglycemia 08/25/17 08:30 09/24/17 08:29 Docusate Sodium (Colace) 100 mg THREE TIMES A DAY ORAL 08/30/17 13:00 09/29/17 12:59 09/12/17 17:23 Duloxetine HCl (Cymbalta) 30 mg DAILY ORAL 08/25/17 09:00 09/24/17 08:59 09/13/17 08:19 Gabapentin (Neurontin) 300 mg THREE TIMES A DAY ORAL 08/25/17 09:00 09/24/17 08:59 09/13/17 17:20 Heparin Sodium (Porcine) (Heparin 5000 units/ml) 5,000 units EVERY 12 HOURS SUBQ 08/25/17 09:00 09/24/17 08:59 09/13/17 21:17 Hydromorphone HCl (Dilaudid) 1 mg Q3H PRN IVP Severe Pain (Pain Scale 7-10) 09/10/17 16:15 09/17/17 16:14 09/14/17 04:50 Lactulose (Cephulac) 30 gm QIDPRN PRN ORAL constipation 09/06/17 16:15 10/06/17 16:14 Morphine Sulfate (MS Contin) 15 mg Q8H ORAL 09/12/17 16:00 09/19/17 15:59 09/13/17 16:30 Naloxone HCl (Narcan) 0.2 mg Q2H PRN IVP respritory depression 09/06/17 16:08 10/06/17 16:07 Ondansetron HCl (Zofran) 4 mg Q6H PRN IVP Nausea & Vomiting 08/25/17 08:15 09/24/17 08:14 09/04/17 05:23 Oxacillin Sodium 2 gm/Sodium Chloride 110 ml @ 220 mls/hr Q4HR IVPB 08/25/17 21:00 10/04/17 20:59 09/14/17 04:50 Polyethylene Glycol (Miralax) 17 gm DAILYPRN PRN ORAL Constipation 08/25/17 08:15 09/24/17 08:14 09/02/17 14:38 Sodium Chloride 1,000 ml @ 50 mls/hr Q20H IV 08/26/17 13:45 09/25/17 13:44 09/13/17 21:18 Murali Laguna M.D. Sep 14, 2017 07:40
--- NOTE | 2017-09-14 07:57 | General Progress Note ---
Assessment/Plan Assessment/Plan (1) Left sided wall chest pain (2) Lung effusion possible empyema (3) S/p VATS (4) Intercostal Neuropathy (5) Lumbar Spondylosis (6) T9-10 discitis/osteomyelitis with epidural abscess (7) Cervical spinal stenosis We will continue Dilaudid and Morphine ER. Recommend Neurosurgical consultation as per manager progressive care. D/w Dr. Stevens and he concurred. Subjective Date patient seen: Sep 14, 2017 Time patient seen: 07:00 - am Allergies: Coded Allergies: No Known Allergies (Unverified , 08/06/17) Subjective REVIEW OF SYSTEMS: Denies rash, fever, chills, sweating, dizziness, drowsiness, blurred vision, sore throat, or change in weight. No nausea, vomiting, diarrhea, or blood in the stool or urine. He is complaining of left chest wall pain and back pain. SUBJECTIVE: Patient pain has been stable and tolerated on the Morphine ER and Dilaudid. It is worse with movement. Waiting to be transferred to higher level of care facility for Neurosurgery consult. He has no new complaints at this time. Objective Last 24 Hour Vital Signs Date Time Temp Pulse Resp B/P (MAP) Pulse Ox O2 Delivery O2 Flow Rate FiO2 09/14/17 04:00 97.2 64 19 113/58 (76) 93 97.2 09/14/17 00:00 98.4 65 18 101/51 (68) 97 98.4 09/13/17 21:00 Room Air 09/13/17 20:32 72 18 Room Air 21 09/13/17 20:00 98.7 74 18 105/57 (73) 95 98.7 09/13/17 16:00 99.2 71 18 101/50 (67) 95 99.2 09/13/17 12:00 98.4 72 20 100/55 (70) 99 98.4 09/13/17 09:00 Room Air 09/13/17 08:42 79 18 Room Air 21 09/13/17 08:00 99.0 65 18 95/49 (64) 95 99.0 Intake and Output 09/13/17 09/14/17 19:00 07:00 Intake Total 750 ml 730 ml Output Total 1200 ml 1000 ml Balance -450 ml -270 ml Intake Oral 700 ml IV Total 50 ml 730 ml Output Urine Total 1200 ml 1000 ml # Bowel Movements 1 Height (Feet): 5 Height (Inches): 7.00 Weight (Pounds): 162 Objective GENERAL: Alert, awake, and oriented. LUNGS: Decreased breath sounds bilaterally. HEART: S1 S2 Regular. ABDOMEN: Benign. EXTREMITIES: No cyanosis. No clubbing. No edema. NEURO: No changes. Mark Rausch Sep 14, 2017 07:57
[2017-09-14 08:00] VITALS: BP 113/56
[2017-09-14] MEDS: MS Contin 15mg tab ORAL SCH ×3 (08:48→16:57)
[2017-09-14] MEDS: DULoxetine 30mg cap ORAL SCH (08:48)
[2017-09-14] MEDS: Heparin 5000 units/ml inj SUBQ SCH ×2 (08:51→20:08)
[2017-09-14] MEDS: Docusate 100mg cap ORAL SCH ×3 (08:51→17:37)
--- NOTE | 2017-09-14 09:17 | General Progress Note ---
Assessment/Plan Status: stable Assessment/Plan # Anemia of chronic disease. --> Continue to closely monitor for improvement. --> Anemia w/u reviewed. Will trend CBC daily. --> Hgb goal >7 # Chronic pain. Pain management --> Pt on morphine # Hypokalemia. --> Replete potassium # HIV/AIDs --> Continue current meds # Sepsis --> Pt on abx # Epidural abscess --> MRI 09/10: No evidence of infectious spondylitis or epidural abscess --> Requires transfer to [facility] for spinal surgeon evaluation. The time the note was entered does not necessarily correspond to the time the patient was seen.. Subjective Date patient seen: Sep 14, 2017 ROS Limited/Unobtainable: Yes Hematologic/Lymphatic: Reports: anemia Allergies: Coded Allergies: No Known Allergies (Unverified , 08/06/17) All Systems: reviewed and negative except above Subjective Pt awake and alert. No acute events. Vitals are stable. Awaiting transfer to [facility] for neuro. Objective Last 24 Hour Vital Signs Date Time Temp Pulse Resp B/P (MAP) Pulse Ox O2 Delivery O2 Flow Rate FiO2 09/14/17 04:00 97.2 64 19 113/58 (76) 93 97.2 09/14/17 00:00 98.4 65 18 101/51 (68) 97 98.4 09/13/17 21:00 Room Air 09/13/17 20:32 72 18 Room Air 21 09/13/17 20:00 98.7 74 18 105/57 (73) 95 98.7 09/13/17 16:00 99.2 71 18 101/50 (67) 95 99.2 09/13/17 12:00 98.4 72 20 100/55 (70) 99 98.4 Intake and Output 09/13/17 09/14/17 19:00 07:00 Intake Total 750 ml 730 ml Output Total 1200 ml 1000 ml Balance -450 ml -270 ml Intake Oral 700 ml IV Total 50 ml 730 ml Output Urine Total 1200 ml 1000 ml # Bowel Movements 1 Height (Feet): 5 Height (Inches): 7.00 Weight (Pounds): 162 General Appearance: no apparent distress EENT: PERRL/EOMI Neck: normal alignment Cardiovascular: normal peripheral pulses Respiratory/Chest: no respiratory distress Abdomen: soft Hi Cameron MD Sep 14, 2017 09:17
[2017-09-14 12:00] VITALS: BP 105/59
--- NOTE | 2017-09-14 12:14 | General Progress Note ---
Assessment/Plan Problem List: (1) Drug abuse and dependence ICD Codes: F19.20 - Other psychoactive substance dependence, uncomplicated SNOMED: 6230596 (2) Anemia ICD Codes: D64.9 - Anemia, unspecified SNOMED: 451929110 Qualifiers: Qualified Codes: D64.9 - Anemia, unspecified (3) Chronic pain ICD Codes: G89.29 - Other chronic pain SNOMED: 63171853 (4) HIV (human immunodeficiency virus infection) ICD Codes: B20 - Human immunodeficiency virus [HIV] disease SNOMED: 29538759 (5) Hypoalbuminemia ICD Codes: E88.09 - Other disorders of plasma-protein metabolism, not elsewhere classified SNOMED: 891961283 (6) Abdominal pain ICD Codes: R10.9 - Unspecified abdominal pain SNOMED: 20710514 (7) Hepatitis C ICD Codes: B19.20 - Unspecified viral hepatitis C without hepatic coma SNOMED: 91469123 (8) Constipated ICD Codes: K59.00 - Constipation, unspecified SNOMED: 98246627 (9) Polysubstance (excluding opioids) dependence ICD Codes: F19.20 - Other psychoactive substance dependence, uncomplicated SNOMED: 60169389 (10) Sepsis ICD Codes: A41.9 - Sepsis, unspecified organism SNOMED: 79500498 Qualifiers: Qualified Codes: A41.9 - Sepsis, unspecified organism Assessment/Plan no change afebrile check lft periodically hcv hiv immune deficiency reviewed chart and labs Subjective ROS Limited/Unobtainable: Yes Allergies: Coded Allergies: No Known Allergies (Unverified , 08/06/17) Objective Last 24 Hour Vital Signs Date Time Temp Pulse Resp B/P (MAP) Pulse Ox O2 Delivery O2 Flow Rate FiO2 09/14/17 09:00 Room Air 09/14/17 08:00 98.8 69 17 113/56 (75) 96 98.8 09/14/17 04:00 97.2 64 19 113/58 (76) 93 97.2 09/14/17 00:00 98.4 65 18 101/51 (68) 97 98.4 09/13/17 21:00 Room Air 09/13/17 20:32 72 18 Room Air 21 09/13/17 20:00 98.7 74 18 105/57 (73) 95 98.7 09/13/17 16:00 99.2 71 18 101/50 (67) 95 99.2 Intake and Output 09/13/17 09/14/17 19:00 07:00 Intake Total 750 ml 730 ml Output Total 1200 ml 1000 ml Balance -450 ml -270 ml Intake Oral 700 ml IV Total 50 ml 730 ml Output Urine Total 1200 ml 1000 ml # Bowel Movements 1 Height (Feet): 5 Height (Inches): 7.00 Weight (Pounds): 162 Cardiovascular: normal rate Respiratory/Chest: lungs clear Abdomen: soft Violette Rogers MD Sep 14, 2017 12:13
--- NOTE | 2017-09-14 12:32 | Pulmonology Progress Note ---
Assessment/Plan Problems: (1) Epidural abscess (2) Sepsis (3) Osteomyelitis (4) COPD (chronic obstructive pulmonary disease) (5) Hypoalbuminemia (6) Hepatitis C (7) HIV (human immunodeficiency virus infection) (8) Pleural effusion Assessment/Plan still trying to refer to higher level of care Impression: Moderate to severe spinal stenosis, with impingement on the cord, extending from C3-4 to C5-6. Associated multilevel degenerative neural foraminal stenosis, as detailed above d/w with biomedical engineering internship of the medical group, Dr. Almonte will present the case to Dr Hill pain management no new complains spine surgery evaluation can not be done at this facility iv abx, ID note appreciated check electrolytes symptomatic treatment transfer to higher level of care Subjective ROS Limited/Unobtainable: No Constitutional: Reports: no symptoms HEENT: Repors: no symptoms Respiratory: Reports: no symptoms Allergies: Coded Allergies: No Known Allergies (Unverified , 08/06/17) Objective Last 24 Hour Vital Signs Date Time Temp Pulse Resp B/P (MAP) Pulse Ox O2 Delivery O2 Flow Rate FiO2 09/14/17 09:00 Room Air 09/14/17 08:00 98.8 69 17 113/56 (75) 96 98.8 09/14/17 04:00 97.2 64 19 113/58 (76) 93 97.2 09/14/17 00:00 98.4 65 18 101/51 (68) 97 98.4 09/13/17 21:00 Room Air 09/13/17 20:32 72 18 Room Air 21 09/13/17 20:00 98.7 74 18 105/57 (73) 95 98.7 09/13/17 16:00 99.2 71 18 101/50 (67) 95 99.2 Intake and Output 09/13/17 09/14/17 19:00 07:00 Intake Total 750 ml 730 ml Output Total 1200 ml 1000 ml Balance -450 ml -270 ml Intake Oral 700 ml IV Total 50 ml 730 ml Output Urine Total 1200 ml 1000 ml # Bowel Movements 1 General Appearance: WD/WN HEENT: normocephalic, atraumatic Respiratory/Chest: chest wall non-tender, lungs clear, normal breath sounds Cardiovascular: normal peripheral pulses, normal rate Abdomen: normal bowel sounds, soft, non tender Extremities: no clubbing 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 Lymphatic: no neck adenopathy Current Medications Medications (Trade) Dose Ordered Sig/Veronica Route PRN Reason Start Time Stop Time Status Last Admin Dose Admin Acetaminophen (Tylenol) 650 mg Q4H PRN ORAL FEVER 08/25/17 08:15 09/24/17 08:14 08/27/17 13:06 Chlorhexidine Gluconate (Nishi-Hex 2%) 1 applic DAILY@2000 TOPIC 09/10/17 20:00 10/10/17 19:59 09/13/17 21:16 Dextrose (Dextrose 50%) 25 ml STAT PRN IV Hypoglycemia 08/25/17 08:15 09/24/17 08:14 Dextrose (Dextrose 50%) 50 ml STAT PRN IV Hypoglycemia 08/25/17 08:30 09/24/17 08:29 Docusate Sodium (Colace) 100 mg THREE TIMES A DAY ORAL 08/30/17 13:00 09/29/17 12:59 09/12/17 17:23 Duloxetine HCl (Cymbalta) 30 mg DAILY ORAL 08/25/17 09:00 09/24/17 08:59 09/14/17 08:48 Gabapentin (Neurontin) 300 mg THREE TIMES A DAY ORAL 08/25/17 09:00 09/24/17 08:59 09/14/17 12:13 Heparin Sodium (Porcine) (Heparin 5000 units/ml) 5,000 units EVERY 12 HOURS SUBQ 08/25/17 09:00 09/24/17 08:59 09/14/17 08:51 Hydromorphone HCl (Dilaudid) 1 mg Q3H PRN IVP Severe Pain (Pain Scale 7-10) 09/10/17 16:15 09/17/17 16:14 09/14/17 11:07 Lactulose (Cephulac) 30 gm QIDPRN PRN ORAL constipation 09/06/17 16:15 10/06/17 16:14 Morphine Sulfate (MS Contin) 15 mg Q8H ORAL 09/12/17 16:00 09/19/17 15:59 09/14/17 08:48 Naloxone HCl (Narcan) 0.2 mg Q2H PRN IVP respritory depression 09/06/17 16:08 10/06/17 16:07 Ondansetron HCl (Zofran) 4 mg Q6H PRN IVP Nausea & Vomiting 08/25/17 08:15 09/24/17 08:14 09/04/17 05:23 Oxacillin Sodium 2 gm/Sodium Chloride 110 ml @ 220 mls/hr Q4HR IVPB 08/25/17 21:00 10/04/17 20:59 09/14/17 12:13 Polyethylene Glycol (Miralax) 17 gm DAILYPRN PRN ORAL Constipation 08/25/17 08:15 09/24/17 08:14 09/02/17 14:38 Sodium Chloride 1,000 ml @ 50 mls/hr Q20H IV 08/26/17 13:45 09/25/17 13:44 09/13/17 21:18 Sally Cox MD Sep 14, 2017 12:31
[2017-09-14 16:00] VITALS: BP 119/64
[2017-09-14 20:00] VITALS: BP 104/52
[2017-09-14] MEDS: Dyna-Hex 2% Top Sol 2oz TOPIC SCH (20:07)
--- NOTE | 2017-09-14 23:52 | Cardiology Progress Note ---
Assessment/Plan Assessment/Plan 1. Bacteremia, refused NURA, TTE did not reveal any valvular vegetations although there was technical difficulties due to poor acoustic images. 2. s/p VATS 3. Epidural abscess with cervical spine stenosis, requiring higher level of care. 4. COPD Subjective Subjective Refused NURA. No cardiac events. Objective Last 24 Hour Vital Signs Date Time Temp Pulse Resp B/P (MAP) Pulse Ox O2 Delivery O2 Flow Rate FiO2 09/14/17 16:00 98.6 75 20 119/64 (82) 98 98.6 09/14/17 12:00 97.3 65 19 105/59 (74) 97 97.3 09/14/17 09:00 Room Air 09/14/17 08:00 98.8 69 17 113/56 (75) 96 98.8 09/14/17 04:00 97.2 64 19 113/58 (76) 93 97.2 09/14/17 00:00 98.4 65 18 101/51 (68) 97 98.4 Intake and Output 09/13/17 09/14/17 19:00 07:00 Intake Total 750 ml 730 ml Output Total 1200 ml 1000 ml Balance -450 ml -270 ml Intake Oral 700 ml IV Total 50 ml 730 ml Output Urine Total 1200 ml 1000 ml # Bowel Movements 1 2D Echo: LVEF 55-60%, Grade I LVDD Objective HEENT: Normocephalic, atraumatic, PERRLA, EOMI, No pale conjunctivae. No icterus. NECK: No JVD, no carotid bruit. CHEST: Normal breath sounds HEART: Normal S1 and S2, no murmurs, gallops or rubs. ABDOMEN: Soft and nontender, no hepatosplenomegaly, + BS. BACK: The patient has tenderness in the lower thoracic and lumbar area. EXTREMITIES: No edema , clubbing or cyanosis. Omid Tellez MD Sep 14, 2017 23:52
[2017-09-15] VITALS: BP 94/52
[2017-09-15] MEDS: Oxacillin 2 GM in NS 110 ML IVPB SCH ×5 (01:09→16:45)
[2017-09-15] MEDS: HYDROmorphone 1mg/ml Carpuject IVP PRN ×5 (03:27→16:45)
[2017-09-15 04:00] VITALS: BP 91/55
[2017-09-15 08:00] VITALS: BP 166/87
[2017-09-15] MEDS: DULoxetine 30mg cap ORAL SCH (08:50)
[2017-09-15] MEDS: Docusate 100mg cap ORAL SCH ×3 (08:50→17:35)
[2017-09-15] MEDS: MS Contin 15mg tab ORAL SCH ×3 (08:50→15:42)
[2017-09-15] MEDS: Heparin 5000 units/ml inj SUBQ SCH (08:51)
--- NOTE | 2017-09-15 09:53 | Pulmonology Progress Note ---
Assessment/Plan Problems: (1) Epidural abscess (2) Sepsis (3) Osteomyelitis (4) COPD (chronic obstructive pulmonary disease) (5) Hypoalbuminemia (6) Hepatitis C (7) HIV (human immunodeficiency virus infection) (8) Pleural effusion Assessment/Plan pt accepted at [facility] Impression: Moderate to severe spinal stenosis, with impingement on the cord, extending from C3-4 to C5-6. Associated multilevel degenerative neural foraminal stenosis, as detailed above pain management no new complains spine surgery evaluation can not be done at this facility iv abx, ID note appreciated check electrolytes symptomatic treatment transfer to higher level of care Subjective ROS Limited/Unobtainable: No Constitutional: Reports: no symptoms HEENT: Repors: no symptoms Respiratory: Reports: no symptoms Allergies: Coded Allergies: No Known Allergies (Unverified , 08/06/17) Objective Last 24 Hour Vital Signs Date Time Temp Pulse Resp B/P (MAP) Pulse Ox O2 Delivery O2 Flow Rate FiO2 09/15/17 08:00 98.4 58 20 166/87 (113) 98 98.4 09/15/17 04:00 98.4 97 17 91/55 (67) 97 98.4 09/15/17 00:00 99.3 76 17 94/52 (66) 93 99.3 09/14/17 21:00 Room Air 09/14/17 20:00 97.3 79 18 104/52 (69) 96 97.3 09/14/17 16:00 98.6 75 20 119/64 (82) 98 98.6 09/14/17 12:00 97.3 65 19 105/59 (74) 97 97.3 Intake and Output 09/14/17 09/15/17 19:00 07:00 Intake Total 650 ml 780 ml Output Total 1200 ml 2200 ml Balance -550 ml -1420 ml Intake Oral 600 ml IV Total 50 ml 780 ml Output Urine Total 1200 ml 2200 ml # Bowel Movements 4 General Appearance: WD/WN HEENT: normocephalic, atraumatic Respiratory/Chest: chest wall non-tender, lungs clear Cardiovascular: normal peripheral pulses, normal rate Abdomen: normal bowel sounds, soft, non tender Genitourinary: normal external genitalia Extremities: no cyanosis 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 Current Medications Medications (Trade) Dose Ordered Sig/Veronica Route PRN Reason Start Time Stop Time Status Last Admin Dose Admin Acetaminophen (Tylenol) 650 mg Q4H PRN ORAL FEVER 08/25/17 08:15 09/24/17 08:14 08/27/17 13:06 Chlorhexidine Gluconate (Nishi-Hex 2%) 1 applic DAILY@2000 TOPIC 09/10/17 20:00 10/10/17 19:59 09/14/17 20:07 Dextrose (Dextrose 50%) 25 ml STAT PRN IV Hypoglycemia 08/25/17 08:15 09/24/17 08:14 Dextrose (Dextrose 50%) 50 ml STAT PRN IV Hypoglycemia 08/25/17 08:30 09/24/17 08:29 Docusate Sodium (Colace) 100 mg THREE TIMES A DAY ORAL 08/30/17 13:00 09/29/17 12:59 09/15/17 08:50 Duloxetine HCl (Cymbalta) 30 mg DAILY ORAL 08/25/17 09:00 09/24/17 08:59 09/15/17 08:50 Gabapentin (Neurontin) 300 mg THREE TIMES A DAY ORAL 08/25/17 09:00 09/24/17 08:59 09/15/17 08:50 Heparin Sodium (Porcine) (Heparin 5000 units/ml) 5,000 units EVERY 12 HOURS SUBQ 08/25/17 09:00 09/24/17 08:59 09/15/17 08:51 Hydromorphone HCl (Dilaudid) 1 mg Q3H PRN IVP Severe Pain (Pain Scale 7-10) 09/10/17 16:15 09/17/17 16:14 09/15/17 06:45 Lactulose (Cephulac) 30 gm QIDPRN PRN ORAL constipation 09/06/17 16:15 10/06/17 16:14 Morphine Sulfate (MS Contin) 15 mg Q8H ORAL 09/12/17 16:00 09/19/17 15:59 09/15/17 08:50 Naloxone HCl (Narcan) 0.2 mg Q2H PRN IVP respritory depression 09/06/17 16:08 10/06/17 16:07 Ondansetron HCl (Zofran) 4 mg Q6H PRN IVP Nausea & Vomiting 08/25/17 08:15 09/24/17 08:14 09/04/17 05:23 Oxacillin Sodium 2 gm/Sodium Chloride 110 ml @ 220 mls/hr Q4HR IVPB 08/25/17 21:00 10/04/17 20:59 09/15/17 08:50 Polyethylene Glycol (Miralax) 17 gm DAILYPRN PRN ORAL Constipation 08/25/17 08:15 09/24/17 08:14 09/02/17 14:38 Sodium Chloride 1,000 ml @ 50 mls/hr Q20H IV 08/26/17 13:45 09/25/17 13:44 09/14/17 17:44 Sally Cox MD Sep 15, 2017 09:53
[2017-09-15] MEDS ORDERED: OXACILLIN2 GM/50 ML IV (09:56)
[2017-09-15] MEDS ORDERED: DILAUDID1 MG/M1 IVP (09:56)
[2017-09-15] MEDS ORDERED: NEURONTIN300 MG ORAL (09:56)
[2017-09-15] MEDS ORDERED: MS CONTIN15 MG ORAL (09:56)
[2017-09-15 10:30] VITALS: BP 106/59
[2017-09-15 12:00] VITALS: BP 103/56
--- NOTE | 2017-09-15 12:11 | General Progress Note ---
Assessment/Plan Problem List: (1) Drug abuse and dependence ICD Codes: F19.20 - Other psychoactive substance dependence, uncomplicated SNOMED: 5088965 (2) Anemia ICD Codes: D64.9 - Anemia, unspecified SNOMED: 336240310 Qualifiers: Qualified Codes: D64.9 - Anemia, unspecified (3) Chronic pain ICD Codes: G89.29 - Other chronic pain SNOMED: 38458018 (4) HIV (human immunodeficiency virus infection) ICD Codes: B20 - Human immunodeficiency virus [HIV] disease SNOMED: 59255240 (5) Hypoalbuminemia ICD Codes: E88.09 - Other disorders of plasma-protein metabolism, not elsewhere classified SNOMED: 095774143 (6) Abdominal pain ICD Codes: R10.9 - Unspecified abdominal pain SNOMED: 88973091 (7) Hepatitis C ICD Codes: B19.20 - Unspecified viral hepatitis C without hepatic coma SNOMED: 95313149 (8) Constipated ICD Codes: K59.00 - Constipation, unspecified SNOMED: 40680455 (9) Polysubstance (excluding opioids) dependence ICD Codes: F19.20 - Other psychoactive substance dependence, uncomplicated SNOMED: 92617875 (10) Sepsis ICD Codes: A41.9 - Sepsis, unspecified organism SNOMED: 90554726 Qualifiers: Qualified Codes: A41.9 - Sepsis, unspecified organism Status: progressing Assessment/Plan afebrile polysubstance abuse chronic pain sepsis no acute events hcv hiv reviewed chart and labs Subjective ROS Limited/Unobtainable: Yes Allergies: Coded Allergies: No Known Allergies (Unverified , 08/06/17) Objective Last 24 Hour Vital Signs Date Time Temp Pulse Resp B/P (MAP) Pulse Ox O2 Delivery O2 Flow Rate FiO2 09/15/17 10:30 61 106/59 (75) 09/15/17 08:45 Room Air 09/15/17 08:00 98.4 58 20 166/87 (113) 98 98.4 09/15/17 04:00 98.4 97 17 91/55 (67) 97 98.4 09/15/17 00:00 99.3 76 17 94/52 (66) 93 99.3 09/14/17 21:00 Room Air 09/14/17 20:00 97.3 79 18 104/52 (69) 96 97.3 09/14/17 16:00 98.6 75 20 119/64 (82) 98 98.6 Intake and Output 09/14/17 09/15/17 19:00 07:00 Intake Total 650 ml 780 ml Output Total 1200 ml 2200 ml Balance -550 ml -1420 ml Intake Oral 600 ml IV Total 50 ml 780 ml Output Urine Total 1200 ml 2200 ml # Bowel Movements 4 Height (Feet): 5 Height (Inches): 7.00 Weight (Pounds): 162 Respiratory/Chest: lungs clear Abdomen: soft Violette Rogers MD Sep 15, 2017 12:11
--- NOTE | 2017-09-15 13:35 | Infectious Diseases Prog Note ---
Assessment/Plan Assessment/Plan A: The patient is a 56-year-old male with multiple medical problems, who has recent empyema/bacteremia due to methicillin-sensitive Staphylococcus aureus ( Signed off AMA on 08/18/17 and had incomplete treatment; only 10 day of 42) -CT chest 08/25: Increased size of loculated right pleural effusion. Small air in the pleural space. Smaller residual left loculated pleural fluid with small air. Small to moderate fluid collection now in the left fissure. Bilateral lower lobe atelectasis/consolidations and air space disease,similar. -s/p VATS, partial pleurectomy, decortication 08/14 -OR findings : Bronchoscopy: A minimal amount of mucopurulent secretion was lavaged and suctioned clear. No endobronchial lesions. -VATS: There were noted to be numerous adhesions tethering along to the surrounding chest wall. The disease appears to be localized in the left lower lobe as the left upper lobe was virtually spared. - OR cx MSSA -CT chest 08/10: Left pleural effusion. Scalloped appearance suggests loculation. Presence of gas bubbles suggest infection by gas-forming organism. Gas bubbles appear trapped within the fluid rather than floating nondependently , indicating the fluid may be highly viscous. - -08/07 Bcx 4/4 MSSA; 08/08 4/4+; 08/10 2/4 +; 08/11 2/4+; 08/13 Neg x4; Bcx 08/27 Negx4; 08/30 Neg -08/28 ESR 126 <86 (08/10), CRP 12 < 27 (08/09) Mild leukocytosis, recurrent- resolved Low grade fever, intermittent; resolved Probable endocarditis (NURA was not done). Thoracic Discitis/Osteomyelitis and epidural abscess T7-T10- causing spinal cord compression; Possible Cervical spodylodiscitis w/ cord compression > Quadriparesis -MRI Cervical spine: Disc narrowing at C5-6. Marrow edema of the adjacent C5 and C6 vertebral bodies is noted. This is most likely due to Modic type I degenerative change and reactive marrow edema, particularly given the absence of edema within the disc. However, the possibility of spondylodiscitis as etiology of this finding, particularly in view of recent diagnosis of thoracic epidural abscess and in view of the slight degree of surrounding soft tissue edema, should also be considered. Severe spinal stenosis with cord compression at multiple levels extending from C3-4 through C5-6. Minimum AP dimension of the spinal canal 5 mm. Due to image degradation, it is uncertain as to whether there is significant cord edema/myelomalacia present. Multilevel severe neural foraminal stenosis as detailed level by level basis above -MRI Thoracic Spine: Suspicion of cord compression T7-T10 secondary to a posterior epidural abscess versus mass. Abscess favored given suspicion of spondylodiscitis at T9-10 as well as bilateral pleural effusions and pneumonia ( recent diagnosed on CT chest). Significantly limited study due to motion. -MRI Lumbar spine: Evidence of T9-10 discitis/osteomyelitis. Suspect related to previously described adjacent bilateral pleural empyemas. Evidence of epidural abscess measuring at least 8 x 11 mm in diameter, and extending at least 5 cm craniocaudad, at and above the T9 level. This results in significant spinal stenosis. Note that it is incompletely included in the imaging volume, and the cephalad extent above mid T7 is unclear. Recommend thoracic MRI for further evaluation. As mentioned above, evidence of bilateral empyemas, with bilateral loculated pleural fluid collections and extensive enhancement and edema of the adjacent soft tissue. Extensive multilevel degenerative changes elsewhere, as detailed on a level by level basis above - Repeat MRI 09/10/17 - Again demonstrated is evidence of epidural phlegmon and multiloculated epidural abscess extending from T7 through T10. However, this is decreased significantly in size and associated mass effect, with the individual abscess pockets as well as the mass effect from the phlegmon having decreased. Polysubstance abuse- refers last IVDA was ~7 yrs ago -UDS (prior admission) +THC, cocaine and amphetamines HIV - non progressor- per patient, never on Tx and CD4 >500 and UD VL -07/2017 CD4 510 (39.2%), VL ND Hep C s/p tx (20 years ago) with sustained virologic response COPD/asthma tobacco abuse (stopped smoking 3d [facility]) PLAN: -. The patient is on oxacillin day # -56 (the patient received 11 days of treatment prior to discharge). -monitor LFTs -08/25 SP IV Vanco and Cefepme #2 -08/18 SP IV Oxacillin #9 -08/10 SP Ceftriaxone d# 5 and IV Vancomycin #3 -08/06 SP Cefepime x1, Levaquin x1 -. Monitor CBC/CMP, temperatures - As patient with neurology symptoms would still recommend neurosurgery evaluation and possible transfer to tertiary hospital for neurosurgical evaluation for epidural abscess and thoracic discitis and OM as it causing spinal cord compression -awaiting transfer: having too much difficulty finding an accepting facility -Needs also further chest drainage; currently refusing -will also need NURA to eval for endocarditis/valvular abscess ( pt refused ) Subjective Allergies: Coded Allergies: No Known Allergies (Unverified , 08/06/17) Subjective Probable transfer to [facility] today Objective Vital Signs Last 24 Hour Vital Signs Date Time Temp Pulse Resp B/P (MAP) Pulse Ox O2 Delivery O2 Flow Rate FiO2 09/15/17 12:00 96.7 63 18 103/56 (72) 96 96.7 09/15/17 10:30 61 106/59 (75) 09/15/17 08:45 Room Air 09/15/17 08:00 98.4 58 20 166/87 (113) 98 98.4 09/15/17 04:00 98.4 97 17 91/55 (67) 97 98.4 09/15/17 00:00 99.3 76 17 94/52 (66) 93 99.3 09/14/17 21:00 Room Air 09/14/17 20:00 97.3 79 18 104/52 (69) 96 97.3 09/14/17 16:00 98.6 75 20 119/64 (82) 98 98.6 Height (Feet): 5 Height (Inches): 7.00 Weight (Pounds): 162 HEENT: anicteric Respiratory/Chest: no respiratory distress Cardiovascular: regularly irregular Abdomen: no mass Current Medications Medications (Trade) Dose Ordered Sig/Veronica Route PRN Reason Start Time Stop Time Status Last Admin Dose Admin Acetaminophen (Tylenol) 650 mg Q4H PRN ORAL FEVER 08/25/17 08:15 09/24/17 08:14 08/27/17 13:06 Chlorhexidine Gluconate (Nishi-Hex 2%) 1 applic DAILY@1999 TOPIC 09/10/17 20:00 10/10/17 19:59 09/14/17 20:07 Dextrose (Dextrose 50%) 25 ml STAT PRN IV Hypoglycemia 08/25/17 08:15 09/24/17 08:14 Dextrose (Dextrose 50%) 50 ml STAT PRN IV Hypoglycemia 08/25/17 08:30 09/24/17 08:29 Docusate Sodium (Colace) 100 mg THREE TIMES A DAY ORAL 08/30/17 13:00 09/29/17 12:59 09/15/17 08:50 Duloxetine HCl (Cymbalta) 30 mg DAILY ORAL 08/25/17 09:00 09/24/17 08:59 09/15/17 08:50 Gabapentin (Neurontin) 300 mg THREE TIMES A DAY ORAL 08/25/17 09:00 09/24/17 08:59 09/15/17 08:50 Heparin Sodium (Porcine) (Heparin 5000 units/ml) 5,000 units EVERY 12 HOURS SUBQ 08/25/17 09:00 09/24/17 08:59 09/15/17 08:51 Hydromorphone HCl (Dilaudid) 1 mg Q3H PRN IVP Severe Pain (Pain Scale 7-10) 09/10/17 16:15 09/17/17 16:14 09/15/17 10:26 Lactulose (Cephulac) 30 gm QIDPRN PRN ORAL constipation 09/06/17 16:15 10/06/17 16:14 Morphine Sulfate (MS Contin) 15 mg Q8H ORAL 09/12/17 16:00 09/19/17 15:59 09/15/17 08:50 Naloxone HCl (Narcan) 0.2 mg Q2H PRN IVP respritory depression 09/06/17 16:08 10/06/17 16:07 Ondansetron HCl (Zofran) 4 mg Q6H PRN IVP Nausea & Vomiting 08/25/17 08:15 09/24/17 08:14 09/04/17 05:23 Oxacillin Sodium 2 gm/Sodium Chloride 110 ml @ 220 mls/hr Q4HR IVPB 08/25/17 21:00 10/04/17 20:59 09/15/17 08:50 Polyethylene Glycol (Miralax) 17 gm DAILYPRN PRN ORAL Constipation 08/25/17 08:15 09/24/17 08:14 09/02/17 14:38 Sodium Chloride 1,000 ml @ 50 mls/hr Q20H IV 08/26/17 13:45 09/25/17 13:44 09/14/17 17:44 Mushtaq Almonte MD Sep 15, 2017 13:35
[2017-09-15 16:00] VITALS: BP 97/52
--- NOTE | 2017-09-16 20:42 | General Progress Note ---
Assessment/Plan Assessment/Plan # Anemia of chronic disease. --> Continue to closely monitor for improvement. --> Anemia w/u reviewed. Will trend CBC prn basis. --> Hgb goal >7 # Epidural abscess --> MRI 09/10: No evidence of infectious spondylitis or epidural abscess --> Requires transfer to [facility] for spinal surgeon evaluation. potential transfer today # Chronic pain. Pain management --> Pt on morphine --> neurosurg eval pending # Hypokalemia. --> Replete potassium # HIV/AIDs --> Continue current meds # Sepsis --> Pt on abx The time the note was entered does not necessarily correspond to the time the patient was seen.. Subjective Date patient seen: Sep 15, 2017 Allergies: Coded Allergies: No Known Allergies (Unverified , 08/06/17) Subjective Pt awake and alert. No acute events. Vitals are stable. Awaiting transfer to [facility] for neuro. Objective Intake and Output 09/15/17 09/16/17 19:00 07:00 Intake Total 1200 ml Output Total 600 ml Balance 600 ml Intake Oral 240 ml IV Total 960 ml Output Urine Total 600 ml Height (Feet): 5 Height (Inches): 7.00 Weight (Pounds): 162 General Appearance: no apparent distress EENT: normal ENT inspection Neck: normal inspection Cardiovascular: regular rhythm Respiratory/Chest: normal breath sounds Abdomen: no mass Extremities: non-tender Edema: 1+ Leg (L), 1+ Leg (R) Edema: mild edema Neurologic: oriented x 3 Skin: warm/dry Hi Cameron MD Sep 16, 2017 20:42
--- NOTE | 2017-09-18 10:03 | Discharge Summary ---
Discharge Summary Discharge Summary _ DATE OF ADMISSION: 08/25/2017 DATE OF DISCHARGE: 09/15/2017 REASON FOR ADMISSION: 56 years old male , who was recently admitted for sepsis and bacteremia with MSSA secondary to empyema, status post thoracoscopy , subsequent removal of chest tube and signing AGAINST MEDICAL ADVICE , called paramedics because of severe weakness and pain. Patient was found in the bathtub , unable to get up. Patient had fever and chills . Pain rated as 10 out of 10. No nausea no vomiting. Upon presentation vital signs reveal low grade fever- 99.8 and tachycardia- 111 Laboratory workup revealed leukocytosis -12.6 and anemia with hemoglobin- 9.7 hematocrit -28.1. Potassium -2.7. Lactic acid -1.0. Troponin negative. Urinalysis negative for evidence of UTI. Chest x-ray revealed no acute cardiopulmonary process. Patient admitted for further management with diagnosis of sepsis, empyema , anemia ,hypokalemia ,drug abuse and dependency, COPD. CONSULTANTS: music manager Dr. Tellez neurologist pulmonary Dr. Cox ID specialist Dr. Almonte surgery Dr. Hand psychiatrist Dr. Villa Pain specialist Dr. Stevens Harbor Tug Captain Dr. Cameron [facility]: Patient admitted. Patient pancultured and started on empiric antibiotics. ID closely followed. Supplemental oxygen titrated to keep pulse oximetry above 92%. Pulmonary toilet provided. Rn Bariatric clsoely followed. Patient started on gentle IV hydration. Blood culture, initial and repeated were negative. Stool for C. difficile was negative. Sputum culture revealed Negra. Antibiotic provided as per ID specialist recommendations. MRI of cervical, thoracic, lumbar spine revealed T9-10 discitis/osteomyelitis, T7-10 epidural abscess with cord compression, bilateral empyema, bilateral loculated pleural effusion( right more than left), severe spinal stenosis of cervical spine. CT of the chest revealed large loculated right pleural effusion and smaller loculated left pleural effusion. Bilateral lower lobe atelectasis/ consolidation and airspace disease. Patient declined thoracentesis. Neurologist closely followed. Quadriparesis since early August 2017. Neurologist recommended transfer to higher level of care for evaluation and further management by spinal surgeon. Frequent neuro checks provided. Repeated MRI on 09/10 again demonstrated evidence of epidural phlegmon and multiloculated epidural abscess extending from T7 through T10. However, this was decreased significantly in size and associated mass effect, with the individual abscess pockets, as well as the mass effect from the phlegmon had decreased. Patient had recent MSSA bacteremia due to empyema, but patient signed out AGAINST MEDICAL ADVICE on 08/18 and had incomplete treatment for only 10 days out of 42. At this admission patient had mild recurrent leukocytosis and intermittent low-grade fever, both resolved. ESR 126, CRP 12. Sepsis was likely due to discitis/osteomyelitis and epidural abscess. Patient probably have endocarditis due to underlying long history of IV drug abuse. Patient refused NURA. ID specialist recommended total treatment of 42 to 56 day. PICC line placed during the hospital stay for linen manager IV antibiotics. Patient received 11 days of treatment prior to discharge. Relief Operator closely followed. Echocardiogram revealed preserved ejection fraction 55-60%, no wall motion abnormality. Transthoracic echocardiogram did not reveal any valvular vegetation although there was a technical difficulty due to poor acoustic images. Patient refused transesophageal echocardiogram. Surgeon closely followed. Chest tube was removed on previous admission after which patient signed AGAINST MEDICAL ADVICE. Wounds were slowly healing. No evidence of surgical site infection. Patient reported left sided chest wall pain , likely related to healing after surgery as per surgeon. Patient specialist closely followed. Pain management was addressed and provided as per pain specialist recommendations. Electrolytes were corrected as needed. Renal parameters were closely monitored. Nephrotoxins were avoided. Harbor Tug Captain closely followed . Hemoglobin and hematocrit were closely monitored with goal to keep hemoglobin above 7. Anemia workup was consistent with anemia of chronic disease. Stool for occult blood x 2 was negative. Patient is a history of intravenous drug abuse . According to patient last use was 7 years ago. Urine toxicology screen on the previous admission was positive for cocaine, amphetamine and marijuana. Patient with HIV status , non-progressor. Per patient, he was never was on treatment. CD4 count was 500 with undetermined viral load. Patient with history of hepatitis C, status post treatment 20 years ago with sustained virologic c response. Patient was counseled to continue abstinence from smoking ( stopped recently). Psychiatrist closely follow. Psychiatrist diagnosed patient with major depressive disorder with psychotic features. Psychiatric medication regimen was optimized as per psychiatrist. Cognitive behavioral therapy provided. Unfortunately, spine surgeon was not available at this facility. Since patient was with neurological symptoms and neurosurgery evaluation was not possible at this hospital, he was waiting for transfer to [facility] for neurosurgery evaluation for epidural abscess and thoracic discitis/ osteomyelitis since it was causing spinal cord compression. Placement was eventually found at [facility]. Patient was transferred for further management. FINAL DIAGNOSES: Sepsis Probable endocarditis Thoracic discitis/osteomyelitis Epidural abscess T 7-T10, causing spinal cord compression Possible cervical spondylodiscitis with cord compression Quadriparesis History of recent MSSA bacteremia secondary to empyema Status post VATS , partial pleurectomy, decortication on 08/14 Bilateral loculated pleural effusion ( R>L) Empyema Pneumonia COPD/asthma Polysubstance abuse HIV status Hepatitis C status post treatment Tobacco abuse Major depressive disorder with psychotic features Intercostal neuropathy Anemia of chronic disease Hypokalemia DISCHARGE MEDICATIONS: See Medication Reconciliation list. DISCHARGE INSTRUCTIONS: Patient was transferred to [facility] for higher level of care for spinal surgeon evaluation and further management Patient to continue IV antibiotics for total of 42-56 days. Patient will need NURA to evaluate for endocarditis. Patient will need thoracentesis . Patient refused both NURA and thoracentesis while at [facility]. Abbey Powell NP Sep 18, 2017 10:03
== END 2017-09-15 19:20 | disposition short-term general hospital (02) | DRG 974 ==
LOC: EDBD 22:10 → EMR 22:22 → EDBEDREQ 23:15 → 4E 08-25 00:06 → EDBEDREQ 08-25 00:35
PROC: 02HV33Z Insertion of Infusion Device into Superior Vena Cava, Percutaneous Approach (ICD-10-PCS; principal; 2017-08-29)
PROC: B518ZZA Fluoroscopy of Superior Vena Cava, Guidance (ICD-10-PCS; principal; 2017-08-29)
PROC: 02HV33Z Insertion of Infusion Device into Superior Vena Cava, Percutaneous Approach (ICD-10-PCS; 2017-09-10)
PROC: B518ZZA Fluoroscopy of Superior Vena Cava, Guidance (ICD-10-PCS; 2017-09-10)
DX: A41.01 Sepsis due to Methicillin susceptible Staphylococcus aureus (principal); G06.1 Intraspinal abscess and granuloma; B20 Human immunodeficiency virus [HIV] disease; J86.9 Pyothorax without fistula; G82.50 Quadriplegia, unspecified; M46.24 Osteomyelitis of vertebra, thoracic region; J90 Pleural effusion, not elsewhere classified; I38 Endocarditis, valve unspecified; F19.20 Other psychoactive substance dependence, uncomplicated; F33.3 Major depressive disorder, recurrent, severe with psychotic symptoms; E88.09 Other disorders of plasma-protein metabolism, not elsewhere classified; B18.2 Chronic viral hepatitis C; J44.9 Chronic obstructive pulmonary disease, unspecified; E87.6 Hypokalemia; D64.9 Anemia, unspecified; F41.9 Anxiety disorder, unspecified; G62.9 Polyneuropathy, unspecified; G58.0 Intercostal neuropathy; M48.02 Spinal stenosis, cervical region; M46.44 Discitis, unspecified, thoracic region; K59.00 Constipation, unspecified; G89.29 Other chronic pain
CPT/HCPCS: 36415; 36569; 71045; 71260; 72020; 72141; 72146; 72156; 72157; 72158; 76937; 80048; 80053; 80069; 80076; 80307; 81003; 82270; 82550; 82553; 83605; 83735; 84100; 84484; 85007; 85025; 85651; 86140; 87040; 87070; 87081; 87205; 87324; 92610; 93306; 93970; 94640; 94664; 97803; 99285; A9585; J2405; J2700; J7620; J8499

== ENCOUNTER 2017-10-02 12:01 | Inpatient (IN) | payer MEDICARE, OTHER ==
[~2017-10-02] VITALS: Ht 170.2 cm; Wt 67.6 kg
[~2017-10-02 12:01] MED LIST changes: +DILAUDID1 MG/M1 IVP; +MS CONTIN15 MG ORAL; +NEURONTIN300 MG ORAL; +OXACILLIN2 GM/50 ML IV
[2017-10-02 20:19] VITALS: BP 123/71
[2017-10-02] MEDS ORDERED: Norco 5mg/325mg tab ORAL PRN ×2 (21:00→21:15)
[2017-10-02] MEDS ORDERED: Morphine Sulfate 2mg/ml Inj(IV/IM USE ONLY) IVP PRN (21:00)
[2017-10-02] MEDS ORDERED: Zolpidem 5mg tab ORAL PRN (21:00)
[2017-10-02] MEDS ORDERED: LORazepam Inj 2mg/ml 1ml IV PRN (21:00)
[2017-10-02] MEDS: Heparin 5000 units/ml inj SUBQ SCH (21:00)
[2017-10-02] MEDS ORDERED: Mylanta II UD 30ml ORAL PRN (21:00)
[2017-10-02] MEDS ORDERED: Miralax 17gm pkt ORAL PRN (21:00)
[2017-10-02] MEDS: Morphine Sulfate 4mg/ml Inj (IV USE ONLY) IVP PRN (21:13)
[2017-10-03] VITALS: BP 135/69
[2017-10-03] MEDS: Morphine Sulfate 4mg/ml Inj (IV USE ONLY) IVP PRN ×2 (01:10→06:26)
[2017-10-03 04:50] VITALS: BP 123/78
[2017-10-03 06:15] LABS: BASOPHILS % (AUTO) 0.6 % (0.0-2.0); EOSINOPHILS % (AUTO) 5.3 % (0.0-3.0); HEMOGLOBIN 9.7 G/DL (14.2-18.0); LYMPHOCYTES % (AUTO) 32.9 % (20.0-45.0); MEAN CORPUSCULAR VOLUME 85 FL (80-99); MONOCYTES % (AUTO) 8.4 % (1.0-10.0); NEUTROPHILS % (AUTO) 52.7 % (45.0-75.0); PLATELET COUNT 254 K/UL (150-450); RED BLOOD COUNT 3.55 M/UL (4.70-6.10); RED CELL DISTRIBUTION WIDTH 14.1 % (11.6-14.8); WHITE BLOOD COUNT 6.1 K/UL (4.8-10.8)
[2017-10-03 06:52] LABS: ALANINE AMINOTRANSFERASE 15 U/L (12-78); ALBUMIN 2.5 G/DL (3.4-5.0); ALBUMIN/GLOBULIN RATIO 0.5 (1.0-2.7); ALKALINE PHOSPHATASE 127 U/L (46-116); ANION GAP 9 mmol/L (5-15); ASPARTATE AMINO TRANSFERASE 18 U/L (15-37); BILIRUBIN,TOTAL 0.2 MG/DL (0.2-1.0); BLOOD UREA NITROGEN 12 mg/dL (7-18); CALCIUM 9.3 MG/DL (8.5-10.1); CARBON DIOXIDE 28 MMOL/L (21-32); CHLORIDE 103 MMOL/L (98-107); CREATININE 0.7 MG/DL (0.55-1.30); POTASSIUM 3.9 MMOL/L (3.5-5.1); SODIUM 140 MMOL/L (136-145)
--- NOTE | 2017-10-03 07:58 | General Progress Note ---
Assessment/Plan Assessment/Plan (1) Lumbar Spondylosis (2) S/p Lumbar surgery (3) Cervical spinal stenosis (4) S/p Cervical surgery (5) T9-10 discitis/osteomyelitis with epidural abscess (6) S/p Thoracic surgery We will discontinue morphine and started Dilaudid 4mg PO 1 tab Q4H PRN severe pain and [place] 10/325mg PO 1 tab Q6H PRN moderate pain. D/w Dr. Stevens and he concurred. Subjective Date patient seen: Oct 03, 2017 Time patient seen: 07:45 - am Allergies: Coded Allergies: FISH DERIVED (Verified Allergy, Unknown, 10/02/17) MAYONNAISE (Verified Allergy, Unknown, 10/02/17) Uncoded Allergies: seafood (Allergy, Unknown, 10/02/17) Subjective REVIEW OF SYSTEMS: Denies rash, fever, chills, sweating, dizziness, drowsiness, blurred vision, sore throat, or change in weight. No nausea, vomiting, diarrhea, or blood in the stool or urine. He is complaining of neck and back pain. SUBJECTIVE: Patient has returned to [facility] s/p cervical thoracic and Lumbar surgeries c/o severe pain. On Morphine IV with minimal pain relief. We were consulted so patient has adequate pain control while here in the hospital. Objective Last 24 Hour Vital Signs Date Time Temp Pulse Resp B/P (MAP) Pulse Ox O2 Delivery O2 Flow Rate FiO2 10/03/17 04:50 98.1 85 20 123/78 (93) 96 98.1 10/03/17 00:00 98.1 79 18 135/69 (91) 96 98.1 10/02/17 21:00 Room Air 10/02/17 20:57 Room Air 10/02/17 20:19 98.1 80 17 123/71 (88) 97 98.1 Laboratory Tests 10/03/17 05:20: White Blood Count 6.1, Red Blood Count 3.55L, Hemoglobin 9.7L, Hematocrit 30.0L , Mean Corpuscular Volume 85, Mean Corpuscular Hemoglobin 27.4, Mean Corpuscular Hemoglobin Concent 32.4, Red Cell Distribution Width 14.1, Platelet Count 254, Mean Platelet Volume 6.4L, Neutrophils (%) (Auto) 52.7, Lymphocytes ( %) (Auto) 32.9, Monocytes (%) (Auto) 8.4, Eosinophils (%) (Auto) 5.3H, Basophils (%) (Auto) 0.6, Sodium Level 140, Potassium Level 3.9, Chloride Level 103, Carbon Dioxide Level 28, Anion Gap 9, Blood Urea Nitrogen 12, Creatinine 0.7, Estimat Glomerular Filtration Rate > 60, Glucose Level 98, Calcium Level 9.3, Total Bilirubin 0.2, Aspartate Amino Transf (AST/SGOT) 18, Alanine Aminotransferase (ALT/SGPT) 15, Alkaline Phosphatase 127H, Total Protein 7.9, Albumin 2.5L, Globulin 5.4, Albumin/Globulin Ratio 0.5L, Thyroid Stimulating Hormone (TSH) 1.727 Height (Feet): 5 Height (Inches): 7.00 Weight (Pounds): 149 Mark Rausch Oct 03, 2017 07:58
[2017-10-03 08:00] VITALS: BP 112/70
[2017-10-03] MEDS ORDERED: HYDROcodone/Acetamin 10/325 tab ORAL PRN (08:15)
[2017-10-03] MEDS: Heparin 5000 units/ml inj SUBQ SCH ×2 (09:36→20:00)
[2017-10-03] MEDS: HYDROmorphone 4mg tab ORAL PRN ×4 (10:42→23:58)
[2017-10-03 12:00] VITALS: BP 129/74
--- NOTE | 2017-10-03 12:35 | History and Physical ---
History of Present Illness General Date patient seen: Oct 03, 2017 Present Illness HPI 57-year-old male who was recently admitted for sepsis and bacteremia from MSSA secondary to empyema of his left lung. He had thoracoscopy and chest tube. He was diagnosed to have Epidural abscess and transferred to [facility] to have neurosurgical evaluation. He had three surgeries and suppose to get IV abx and physical therapy. Allergies: Coded Allergies: FISH DERIVED (Verified Allergy, Unknown, 10/02/17) MAYONNAISE (Verified Allergy, Unknown, 10/02/17) Uncoded Allergies: seafood (Allergy, Unknown, 10/02/17) Medication History Scheduled Gabapentin (Neurontin), 300 MG ORAL THREE TIMES A DAY Morphine Sulfate (Morphine Sulfate), 15 MG ORAL Q8H Oxacillin Sodium/Dextrose,Iso (Oxacillin 2 Gm/ 50 Ml Inj), 2 GM IV EVERY 4 HOURS Scheduled PRN Hydrocodone Bit/Acetaminophen 5-325* ([place] 5-325*), 1 TAB ORAL Q4H PRN for For Pain, (Reported) Hydromorphone HCl (Hydromorphone HCl), 1 MG IVP Q3H PRN Patient History Healthcare decision maker Resuscitation status Advanced Directive on File Past Medical/Surgical History Past Medical/Surgical History: (1) Drug abuse and dependence (2) HIV (human immunodeficiency virus infection) (3) COPD (chronic obstructive pulmonary disease) (4) Hepatitis C (5) Empyema (6) Epidural abscess Review of Systems All Other Systems: negative except mentioned in HPI Physical Exam General Appearance: WD/WN Lines, tubes and drains: peripheral HEENT: normocephalic Neck: non-tender, normal alignment Respiratory/Chest: chest wall non-tender, lungs clear Breasts: no masses Cardiovascular/Chest: normal rate Abdomen: normal bowel sounds, soft Genitourinary/Rectal: normal genital exam Extremities: normal range of motion Last 24 Hour Vital Signs Date Time Temp Pulse Resp B/P (MAP) Pulse Ox O2 Delivery O2 Flow Rate FiO2 10/03/17 12:00 97.5 86 18 129/74 (92) 97 97.5 10/03/17 08:00 97.2 84 112/70 (84) 97.2 10/03/17 04:50 98.1 85 20 123/78 (93) 96 98.1 10/03/17 00:00 98.1 79 18 135/69 (91) 96 98.1 10/02/17 21:00 Room Air 10/02/17 20:57 Room Air 10/02/17 20:19 98.1 80 17 123/71 (88) 97 98.1 Laboratory Tests Test 10/03/17 05:20 White Blood Count 6.1 K/UL (4.8-10.8) Red Blood Count 3.55 M/UL (4.70-6.10) L Hemoglobin 9.7 G/DL (14.2-18.0) L Hematocrit 30.0 % (42.0-52.0) L Mean Corpuscular Volume 85 FL (80-99) Mean Corpuscular Hemoglobin 27.4 PG (27.0-31.0) Mean Corpuscular Hemoglobin Concent 32.4 G/DL (32.0-36.0) Red Cell Distribution Width 14.1 % (11.6-14.8) Platelet Count 254 K/UL (150-450) Mean Platelet Volume 6.4 FL (6.5-10.1) L Neutrophils (%) (Auto) 52.7 % (45.0-75.0) Lymphocytes (%) (Auto) 32.9 % (20.0-45.0) Monocytes (%) (Auto) 8.4 % (1.0-10.0) Eosinophils (%) (Auto) 5.3 % (0.0-3.0) H Basophils (%) (Auto) 0.6 % (0.0-2.0) Sodium Level 140 MMOL/L (136-145) Potassium Level 3.9 MMOL/L (3.5-5.1) Chloride Level 103 MMOL/L (98-107) Carbon Dioxide Level 28 MMOL/L (21-32) Anion Gap 9 mmol/L (5-15) Blood Urea Nitrogen 12 mg/dL (7-18) Creatinine 0.7 MG/DL (0.55-1.30) Estimat Glomerular Filtration Rate > 60 mL/min (>60) Glucose Level 98 MG/DL (74-106) Calcium Level 9.3 MG/DL (8.5-10.1) Total Bilirubin 0.2 MG/DL (0.2-1.0) Aspartate Amino Transf (AST/SGOT) 18 U/L (15-37) Alanine Aminotransferase (ALT/SGPT) 15 U/L (12-78) Alkaline Phosphatase 127 U/L (46-116) H Total Protein 7.9 G/DL (6.4-8.2) Albumin 2.5 G/DL (3.4-5.0) L Globulin 5.4 g/dL Albumin/Globulin Ratio 0.5 (1.0-2.7) L Thyroid Stimulating Hormone (TSH) 1.727 uiU/mL (0.358-3.740) Microbiology Date/Time Source Procedure Growth Status 10/02/17 21:00 Stool Received Height (Feet): 5 Height (Inches): 7.00 Weight (Pounds): 149 Medications Current Medications Medications (Trade) Dose Ordered Sig/Veronica Route PRN Reason Start Time Stop Time Status Last Admin Dose Admin Acetaminophen (Tylenol) 650 mg Q4H PRN ORAL fever 10/02/17 21:00 11/01/17 20:59 Acetaminophen/ Hydrocodone Bitart ([place] 10/325) 1 tab Q6H PRN ORAL For breakthrough Pain 10/03/17 08:15 10/10/17 08:14 Al Hydroxide/Mg Hydroxide (Mylanta II) 30 ml Q6H PRN ORAL dyspepsia 10/02/17 21:00 11/01/17 20:59 Dextrose (Dextrose 50%) 25 ml STAT PRN IV Hypoglycemia 10/02/17 21:00 11/01/17 20:59 Dextrose (Dextrose 50%) 50 ml STAT PRN IV Hypoglycemia 10/02/17 21:15 11/01/17 21:14 Gabapentin (Neurontin) 300 mg THREE TIMES A DAY ORAL 10/03/17 09:00 11/02/17 08:59 10/03/17 09:34 Heparin Sodium (Porcine) (Heparin 5000 units/ml) 5,000 units EVERY 12 HOURS SUBQ 10/02/17 21:00 11/01/17 20:59 10/03/17 09:36 Hydromorphone HCl (Dilaudid) 4 mg Q4H PRN ORAL Severe Pain (Pain Scale 7-10) 10/03/17 08:15 10/10/17 08:14 10/03/17 10:42 Lorazepam (Ativan 2mg/ml 1ml) 0.5 mg Q4H PRN IV For Anxiety 10/02/17 21:00 10/09/17 20:59 Ondansetron HCl (Zofran) 4 mg Q6H PRN IVP Nausea & Vomiting 10/02/17 21:00 11/01/17 20:59 Polyethylene Glycol (Miralax) 17 gm HSPRN PRN ORAL Constipation 10/02/17 21:00 11/01/17 20:59 Zolpidem Tartrate (Ambien) 5 mg HSPRN PRN ORAL Insomnia 10/02/17 21:00 10/09/17 20:59 10/03/17 01:13 Assessment/Plan Problem List: (1) Epidural abscess ICD Codes: G06.2 - Extradural and subdural abscess, unspecified SNOMED: 37727149 (2) HIV (human immunodeficiency virus infection) ICD Codes: B20 - Human immunodeficiency virus [HIV] disease SNOMED: 15535779 (3) Hepatitis C ICD Codes: B19.20 - Unspecified viral hepatitis C without hepatic coma SNOMED: 62048558 (4) COPD (chronic obstructive pulmonary disease) ICD Codes: J44.9 - Chronic obstructive pulmonary disease, unspecified SNOMED: 97051863 Assessment/Plan continue abx check electrolytes pain management pt /ot Sally Cox MD Oct 03, 2017 12:35
[2017-10-03] MEDS: Oxacillin 2 GM in NS 110 ML IVPB SCH ×4 (13:00→23:58)
--- NOTE | 2017-10-03 17:09 | Consultation ---
History of Present Illness General Date patient seen: Oct 03, 2017 Present Illness HPI 57-year-old male with HIV (long standing,, non processer, ~25 yrs), Hep C, polysubstance abuse in the past, COPD/asthma, tobaccou abuse, recent MSSA empyema s/p VATS (w/ incomplete tx due to leaving AMA) c/w cervical/thoracic/ lumbar discitis/OM, thoracic epidural abscess s/p cervical, thoracic and lumbar decompression at [facility] is transferred back from [facility] to [place] on 10/02 for physical therapy and completion of IV abx therapy. Afebrile no leukocytosis. Allergies: Coded Allergies: FISH DERIVED (Verified Allergy, Unknown, 10/02/17) MAYONNAISE (Verified Allergy, Unknown, 10/02/17) Uncoded Allergies: seafood (Allergy, Unknown, 10/02/17) Medication History Scheduled Gabapentin (Neurontin), 300 MG ORAL THREE TIMES A DAY Morphine Sulfate (Morphine Sulfate), 15 MG ORAL Q8H Oxacillin Sodium/Dextrose,Iso (Oxacillin 2 Gm/ 50 Ml Inj), 2 GM IV EVERY 4 HOURS Scheduled PRN Hydrocodone Bit/Acetaminophen 5-325* ([place] 5-325*), 1 TAB ORAL Q4H PRN for For Pain, (Reported) Hydromorphone HCl (Hydromorphone HCl), 1 MG IVP Q3H PRN Patient History Healthcare decision maker Resuscitation status Advanced Directive on File Patient History Narrative Pmhx: as above Shx: reviewed Fhx: non contributory Physical Exam Physical Exam Narrative General Appearance: WD/WN Lines, tubes and drains: peripheral HEENT: normocephalic Neck: non-tender, normal alignment Respiratory/Chest: chest wall non-tender, lungs clear Cardiovascular/Chest: normal rate Abdomen: normal bowel sounds, soft Extremities: no edema, no rash Last 24 Hour Vital Signs Date Time Temp Pulse Resp B/P (MAP) Pulse Ox O2 Delivery O2 Flow Rate FiO2 10/03/17 12:00 97.5 86 18 129/74 (92) 97 97.5 10/03/17 08:00 97.2 84 112/70 (84) 97.2 10/03/17 04:50 98.1 85 20 123/78 (93) 96 98.1 10/03/17 00:00 98.1 79 18 135/69 (91) 96 98.1 10/02/17 21:00 Room Air 10/02/17 20:57 Room Air 10/02/17 20:19 98.1 80 17 123/71 (88) 97 98.1 Laboratory Tests Test 10/03/17 05:20 White Blood Count 6.1 K/UL (4.8-10.8) Red Blood Count 3.55 M/UL (4.70-6.10) L Hemoglobin 9.7 G/DL (14.2-18.0) L Hematocrit 30.0 % (42.0-52.0) L Mean Corpuscular Volume 85 FL (80-99) Mean Corpuscular Hemoglobin 27.4 PG (27.0-31.0) Mean Corpuscular Hemoglobin Concent 32.4 G/DL (32.0-36.0) Red Cell Distribution Width 14.1 % (11.6-14.8) Platelet Count 254 K/UL (150-450) Mean Platelet Volume 6.4 FL (6.5-10.1) L Neutrophils (%) (Auto) 52.7 % (45.0-75.0) Lymphocytes (%) (Auto) 32.9 % (20.0-45.0) Monocytes (%) (Auto) 8.4 % (1.0-10.0) Eosinophils (%) (Auto) 5.3 % (0.0-3.0) H Basophils (%) (Auto) 0.6 % (0.0-2.0) Sodium Level 140 MMOL/L (136-145) Potassium Level 3.9 MMOL/L (3.5-5.1) Chloride Level 103 MMOL/L (98-107) Carbon Dioxide Level 28 MMOL/L (21-32) Anion Gap 9 mmol/L (5-15) Blood Urea Nitrogen 12 mg/dL (7-18) Creatinine 0.7 MG/DL (0.55-1.30) Estimat Glomerular Filtration Rate > 60 mL/min (>60) Glucose Level 98 MG/DL (74-106) Calcium Level 9.3 MG/DL (8.5-10.1) Total Bilirubin 0.2 MG/DL (0.2-1.0) Aspartate Amino Transf (AST/SGOT) 18 U/L (15-37) Alanine Aminotransferase (ALT/SGPT) 15 U/L (12-78) Alkaline Phosphatase 127 U/L (46-116) H Total Protein 7.9 G/DL (6.4-8.2) Albumin 2.5 G/DL (3.4-5.0) L Globulin 5.4 g/dL Albumin/Globulin Ratio 0.5 (1.0-2.7) L Thyroid Stimulating Hormone (TSH) 1.727 uiU/mL (0.358-3.740) Microbiology Date/Time Source Procedure Growth Status 10/02/17 21:00 Stool Received Height (Feet): 5 Height (Inches): 7.00 Weight (Pounds): 149 Medications Current Medications Medications (Trade) Dose Ordered Sig/Veronica Route PRN Reason Start Time Stop Time Status Last Admin Dose Admin Acetaminophen (Tylenol) 650 mg Q4H PRN ORAL fever 10/02/17 21:00 11/01/17 20:59 Acetaminophen/ Hydrocodone Bitart ([place] 10/325) 1 tab Q6H PRN ORAL For breakthrough Pain 10/03/17 08:15 10/10/17 08:14 Al Hydroxide/Mg Hydroxide (Mylanta II) 30 ml Q6H PRN ORAL dyspepsia 10/02/17 21:00 11/01/17 20:59 Dextrose (Dextrose 50%) 25 ml STAT PRN IV Hypoglycemia 10/02/17 21:00 11/01/17 20:59 Dextrose (Dextrose 50%) 50 ml STAT PRN IV Hypoglycemia 10/02/17 21:15 11/01/17 21:14 Gabapentin (Neurontin) 300 mg THREE TIMES A DAY ORAL 10/03/17 09:00 11/02/17 08:59 10/03/17 14:51 Heparin Sodium (Porcine) (Heparin 5000 units/ml) 5,000 units EVERY 12 HOURS SUBQ 10/02/17 21:00 11/01/17 20:59 10/03/17 09:36 Hydromorphone HCl (Dilaudid) 4 mg Q4H PRN ORAL Severe Pain (Pain Scale 7-10) 10/03/17 08:15 10/10/17 08:14 10/03/17 15:42 Lorazepam (Ativan 2mg/ml 1ml) 0.5 mg Q4H PRN IV For Anxiety 10/02/17 21:00 10/09/17 20:59 Ondansetron HCl (Zofran) 4 mg Q6H PRN IVP Nausea & Vomiting 10/02/17 21:00 11/01/17 20:59 Oxacillin Sodium 2 gm/Sodium Chloride 110 ml @ 220 mls/hr EVERY 4 HOURS IVPB 10/03/17 13:00 10/10/17 12:59 10/03/17 16:29 Polyethylene Glycol (Miralax) 17 gm HSPRN PRN ORAL Constipation 10/02/17 21:00 11/01/17 20:59 Zolpidem Tartrate (Ambien) 5 mg HSPRN PRN ORAL Insomnia 10/02/17 21:00 10/09/17 20:59 10/03/17 01:13 Assessment/Plan Assessment/Plan Assessment: #Recent MSSA bacteremia c/w empyema and severe Thoracic and Cervical OM/ Discitis and epidural abscess 09/25 SP Complete lumbar laminectomy at L2, L3, L4 and L5.. Decompression of the cauda equina. Resection of epidural calcified hypertrophied tissues. Partial diskectomy and biopsy at the level of L2-L3 because of suspected diskitis at that level. 09/20: SP 1-Anterior cervical discectomy complete at C3-4, C4-5, C5-6 bilateral foraminotomies 2-Decompression of the cervical spinal cord 3-Partial corpectomy at C3-4, C4-5, C5-6 , to allow placement of a large lordotic cages. Placement of a allograft lordotic cages x3 C3-4, C4-5, C5-6 5 Arthrodesis at C3 -4, C4-5, C5-6 6 Fluoroscopic guidance with interpretation of studies7 Microscope and microscopic dissection 09/18: bld cx: Negative 09/17: aerobic: neg, anaerobic: neg, fungal cx (sx): p 09/17: SP T8,9,10 laminectomy resection of epidural infected mass, epidural cultures , fixation of T9, T10 using pedicle screws by Dr. Alonzo OR findings: severe stenosis and sinal cord compression, epidural granulation tissue, no contreras pus noted 09/16: CXR: Mild diffuse bilateral hazy opacities. 09/15: blood cx: Coagulase Negative Staphylococcus .Growth in 1 of 2 blood culture bottles. bld cx (2nd set): neg 09/16: US Renal: No hydronephrosis or large renal stones. Small renal stones cannot be excluded on ultrasound. 09/17 : MRI C-spine: Impression: Inflammatory process at C5-C6 possibly due to discitis with pressure upon the anterior cord surface on the left severe narrowing of the right neural foramen by osteophytes. At C3-4 narrowing of the right neural foramen by bulging disc and osteophytes. 45 effacement of the anterior cord surface on the left by a 4 to 5 mm disc protrusion with endplate osteophytes. Bilateral foraminal narrowing. C6-7 narrowing of the entryway into the right neural foramen x 5 mm far right paracentral disc protrusion. There is some evidence of cord edema at the C3-C6 levels 09/17:CT Thoracic Spine WO Contrast: Redemonstration of severe discitis osteomyelitis at T9-10. #Afebrile, no leukocytosis #Recent PsA UTI (+u hesitancy); s/p Rx -u/a +pyuria; 09/16: Ucx: >100,000 cfu/ml Gram Negative Rods-->>100,000 cfu/ml Pseudomonas aeruginosa #CONS bacteremia- 09/15 bld cx: 1/2 contaminant 09/18, 09/17 Bcx neg 09/16: CXR: Mild diffuse bilateral hazy opacities. hepatitis C HIV - previoulsy undetected for years off tx -09/16 HIV VL 52 COPD Plan: - cont. Oxacillin abx d# 40/56 for OM/epidural abscess - 09/25 SP po cipro abx d#/ for PsA UTI - 09/19 SP IV Cefepime d#2 - monitor CBC BMP, LFT -wound care per hospital protocol -PT/OT -aspiration precautions -HIV VL am Discussed with RN and Steph Elmore M.D. Oct 03, 2017 17:09
[2017-10-03 20:02] VITALS: BP 119/74
[2017-10-04 00:44] VITALS: BP 127/71
[2017-10-04 03:56] VITALS: BP 118/63
[2017-10-04] MEDS: Oxacillin 2 GM in NS 110 ML IVPB SCH ×5 (04:01→20:29)
[2017-10-04] MEDS: HYDROmorphone 4mg tab ORAL PRN ×5 (04:02→20:29)
[2017-10-04 07:26] VITALS: BP 113/68
[2017-10-04] MEDS: Heparin 5000 units/ml inj SUBQ SCH ×2 (08:17→20:32)
--- NOTE | 2017-10-04 11:11 | Infectious Diseases Prog Note ---
Assessment/Plan Assessment/Plan Assessment: #Recent MSSA bacteremia c/w empyema and severe Thoracic and Cervical OM/ Discitis and epidural abscess 09/25 SP Complete lumbar laminectomy at L2, L3, L4 and L5.. Decompression of the cauda equina. Resection of epidural calcified hypertrophied tissues. Partial diskectomy and biopsy at the level of L2-L3 because of suspected diskitis at that level. 09/20: SP 1-Anterior cervical discectomy complete at C3-4, C4-5, C5-6 bilateral foraminotomies 2-Decompression of the cervical spinal cord 3-Partial corpectomy at C3-4, C4-5, C5-6 , to allow placement of a large lordotic cages. Placement of a allograft lordotic cages x3 C3-4, C4-5, C5-6 5 Arthrodesis at C3 -4, C4-5, C5-6 6 Fluoroscopic guidance with interpretation of studies7 Microscope and microscopic dissection 09/18: bld cx: Negative 09/17: aerobic: neg, anaerobic: neg, fungal cx (sx): p 09/17: SP T8,9,10 laminectomy resection of epidural infected mass, epidural cultures , fixation of T9, T10 using pedicle screws by Dr. Alonzo OR findings: severe stenosis and sinal cord compression, epidural granulation tissue, no contreras pus noted 09/16: CXR: Mild diffuse bilateral hazy opacities. 09/15: blood cx: Coagulase Negative Staphylococcus .Growth in 1 of 2 blood culture bottles. bld cx (2nd set): neg 09/16: US Renal: No hydronephrosis or large renal stones. Small renal stones cannot be excluded on ultrasound. 09/17 : MRI C-spine: Impression: Inflammatory process at C5-C6 possibly due to discitis with pressure upon the anterior cord surface on the left severe narrowing of the right neural foramen by osteophytes. At C3-4 narrowing of the right neural foramen by bulging disc and osteophytes. 45 effacement of the anterior cord surface on the left by a 4 to 5 mm disc protrusion with endplate osteophytes. Bilateral foraminal narrowing. C6-7 narrowing of the entryway into the right neural foramen x 5 mm far right paracentral disc protrusion. There is some evidence of cord edema at the C3-C6 levels 09/17:CT Thoracic Spine WO Contrast: Redemonstration of severe discitis osteomyelitis at T9-10. #Afebrile, no leukocytosis #Recent PsA UTI (+u hesitancy); s/p Rx -u/a +pyuria; 09/16: Ucx: >100,000 cfu/ml Gram Negative Rods-->>100,000 cfu/ml Pseudomonas aeruginosa #CONS bacteremia- 09/15 bld cx: 1/2 contaminant 09/18, 09/17 Bcx neg 09/16: CXR: Mild diffuse bilateral hazy opacities. hepatitis C HIV - previoulsy undetected for years off tx -09/16 HIV VL 52 COPD Plan: - cont. Oxacillin abx d# 41/56 for OM/epidural abscess - 09/25 SP po cipro abx d#08/18 for PsA UTI - 09/19 SP IV Cefepime d#2 - monitor CBC BMP, LFT -wound care per hospital protocol -PT/OT -aspiration precautions -f/u HIV VL am -CBC, CMP,ESR, CRP am Discussed with RN and Dr Cox Subjective Allergies: Coded Allergies: FISH DERIVED (Verified Allergy, Unknown, 10/02/17) [place] (Verified Allergy, Unknown, 10/02/17) Uncoded Allergies: seafood (Allergy, Unknown, 10/02/17) Subjective afebrile no leukocytosis Objective Vital Signs Last 24 Hour Vital Signs Date Time Temp Pulse Resp B/P (MAP) Pulse Ox O2 Delivery O2 Flow Rate FiO2 10/04/17 09:12 98.1 10/04/17 08:13 98.1 10/04/17 07:26 98.1 89 17 113/68 (83) 96 98.1 10/04/17 07:07 Room Air 10/04/17 04:02 98.1 10/04/17 03:56 98.1 84 17 118/63 (81) 96 98.1 10/04/17 00:44 97.5 90 19 127/71 (89) 96 97.5 10/03/17 23:58 97.7 10/03/17 21:04 Room Air 10/03/17 20:02 97.7 93 18 119/74 (89) 97 97.7 10/03/17 19:55 97.5 10/03/17 12:00 97.5 86 18 129/74 (92) 97 97.5 Height (Feet): 5 Height (Inches): 7.00 Weight (Pounds): 149 Objective General Appearance: WD/WN Lines, tubes and drains: peripheral HEENT: normocephalic Neck: non-tender, normal alignment Respiratory/Chest: chest wall non-tender, lungs clear Cardiovascular/Chest: normal rate Abdomen: normal bowel sounds, soft Extremities: no edema, no rash Microbiology Date/Time Source Procedure Growth Status 10/02/17 21:00 Stool Received Laboratory Tests Test 10/04/17 05:00 HIV-1 RNA (PCR) log10 Value Pending HIV-1 RNA Ultraquantitative (PCR) Pending Current Medications Medications (Trade) Dose Ordered Sig/Veronica Route PRN Reason Start Time Stop Time Status Last Admin Dose Admin Acetaminophen (Tylenol) 650 mg Q4H PRN ORAL fever 10/02/17 21:00 11/01/17 20:59 Acetaminophen/ Hydrocodone Bitart ([place] 10/325) 1 tab Q6H PRN ORAL For breakthrough Pain 10/03/17 08:15 10/10/17 08:14 Al Hydroxide/Mg Hydroxide (Mylanta II) 30 ml Q6H PRN ORAL dyspepsia 10/02/17 21:00 11/01/17 20:59 Dextrose (Dextrose 50%) 25 ml STAT PRN IV Hypoglycemia 10/02/17 21:00 11/01/17 20:59 Dextrose (Dextrose 50%) 50 ml STAT PRN IV Hypoglycemia 10/02/17 21:15 11/01/17 21:14 Gabapentin (Neurontin) 300 mg THREE TIMES A DAY ORAL 10/03/17 09:00 11/02/17 08:59 10/04/17 08:12 Heparin Sodium (Porcine) (Heparin 5000 units/ml) 5,000 units EVERY 12 HOURS SUBQ 10/02/17 21:00 11/01/17 20:59 10/04/17 08:17 Hydromorphone HCl (Dilaudid) 4 mg Q4H PRN ORAL Severe Pain (Pain Scale 7-10) 10/03/17 08:15 10/10/17 08:14 10/04/17 08:13 Lorazepam (Ativan 2mg/ml 1ml) 0.5 mg Q4H PRN IV For Anxiety 8/21/18 21:00 10/09/17 20:59 Ondansetron HCl (Zofran) 4 mg Q6H PRN IVP Nausea & Vomiting 10/02/17 21:00 11/01/17 20:59 Oxacillin Sodium 2 gm/Sodium Chloride 110 ml @ 220 mls/hr EVERY 4 HOURS IVPB 10/03/17 13:00 10/10/17 12:59 10/04/17 08:17 Polyethylene Glycol (Miralax) 17 gm HSPRN PRN ORAL Constipation 10/02/17 21:00 11/01/17 20:59 Zolpidem Tartrate (Ambien) 5 mg HSPRN PRN ORAL Insomnia 10/02/17 21:00 10/09/17 20:59 10/03/17 01:13 Steph Crowder M.D. Oct 04, 2017 11:11
[2017-10-04] MEDS ORDERED: ancef IV BOLUS (12:49)
--- NOTE | 2017-10-04 12:51 | Pulmonology Progress Note ---
Assessment/Plan Problems: (1) Epidural abscess (2) HIV (human immunodeficiency virus infection) (3) Hepatitis C (4) COPD (chronic obstructive pulmonary disease) Assessment/Plan continue abx for 2 more weeks dc planning in progress analgesics dc home with HH. respiratory treatment Subjective ROS Limited/Unobtainable: No Constitutional: Reports: no symptoms HEENT: Repors: no symptoms Respiratory: Reports: no symptoms Cardiovascular: Reports: no symptoms Allergies: Coded Allergies: FISH DERIVED (Verified Allergy, Unknown, 10/02/17) MAYONNAISE (Verified Allergy, Unknown, 10/02/17) Uncoded Allergies: seafood (Allergy, Unknown, 10/02/17) Objective Last 24 Hour Vital Signs Date Time Temp Pulse Resp B/P (MAP) Pulse Ox O2 Delivery O2 Flow Rate FiO2 10/04/17 09:12 98.1 10/04/17 08:13 98.1 10/04/17 07:26 98.1 89 17 113/68 (83) 96 98.1 10/04/17 07:07 Room Air 10/04/17 04:02 98.1 10/04/17 03:56 98.1 84 17 118/63 (81) 96 98.1 10/04/17 00:44 97.5 90 19 127/71 (89) 96 97.5 10/03/17 23:58 97.7 10/03/17 21:04 Room Air 10/03/17 20:02 97.7 93 18 119/74 (89) 97 97.7 10/03/17 19:55 97.5 Intake and Output 10/03/17 10/04/17 19:00 07:00 Intake Total 760 ml 710 ml Output Total 725 ml Balance 35 ml 710 ml Intake Oral 760 ml 380 ml IV Total 330 ml Output Urine Total 725 ml # Voids 3 General Appearance: WD/WN HEENT: normocephalic Respiratory/Chest: chest wall non-tender, lungs clear Cardiovascular: normal peripheral pulses, normal rate Abdomen: normal bowel sounds, soft, non tender Extremities: no cyanosis Skin: no rash 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 Microbiology Date/Time Source Procedure Growth Status 10/02/17 21:00 Stool Received Laboratory Tests 10/04/17 05:00: HIV-1 RNA (PCR) log10 Value [Pending], HIV-1 RNA Ultraquantitative (PCR) [ Pending] Current Medications Medications (Trade) Dose Ordered Sig/Veronica Route PRN Reason Start Time Stop Time Status Last Admin Dose Admin Acetaminophen (Tylenol) 650 mg Q4H PRN ORAL fever 10/02/17 21:00 11/01/17 20:59 Acetaminophen/ Hydrocodone Bitart ([place] 10/325) 1 tab Q6H PRN ORAL For breakthrough Pain 10/03/17 08:15 10/10/17 08:14 Al Hydroxide/Mg Hydroxide (Mylanta II) 30 ml Q6H PRN ORAL dyspepsia 10/02/17 21:00 11/01/17 20:59 Dextrose (Dextrose 50%) 25 ml STAT PRN IV Hypoglycemia 10/02/17 21:00 11/01/17 20:59 Dextrose (Dextrose 50%) 50 ml STAT PRN IV Hypoglycemia 10/02/17 21:15 11/01/17 21:14 Gabapentin (Neurontin) 300 mg THREE TIMES A DAY ORAL 10/03/17 09:00 11/02/17 08:59 10/04/17 08:12 Heparin Sodium (Porcine) (Heparin 5000 units/ml) 5,000 units EVERY 12 HOURS SUBQ 10/02/17 21:00 11/01/17 20:59 10/04/17 08:17 Hydromorphone HCl (Dilaudid) 4 mg Q4H PRN ORAL Severe Pain (Pain Scale 7-10) 10/03/17 08:15 10/10/17 08:14 10/04/17 12:20 Lorazepam (Ativan 2mg/ml 1ml) 0.5 mg Q4H PRN IV For Anxiety 10/02/17 21:00 10/09/17 20:59 Ondansetron HCl (Zofran) 4 mg Q6H PRN IVP Nausea & Vomiting 10/02/17 21:00 11/01/17 20:59 Oxacillin Sodium 2 gm/Sodium Chloride 110 ml @ 220 mls/hr EVERY 4 HOURS IVPB 10/03/17 13:00 10/10/17 12:59 10/04/17 08:17 Polyethylene Glycol (Miralax) 17 gm HSPRN PRN ORAL Constipation 10/02/17 21:00 11/01/17 20:59 Zolpidem Tartrate (Ambien) 5 mg HSPRN PRN ORAL Insomnia 10/02/17 21:00 10/09/17 20:59 10/03/17 01:13 Sally Cox MD Oct 04, 2017 12:51
[2017-10-04 13:52] VITALS: BP 104/56
[2017-10-04 16:05] VITALS: BP 118/68
[2017-10-04 19:57] VITALS: BP 108/62
--- NOTE | 2017-10-04 21:25 | General Progress Note ---
Assessment/Plan Assessment/Plan (1) Lumbar Spondylosis (2) S/p Lumbar surgery (3) Cervical spinal stenosis (4) S/p Cervical surgery (5) T9-10 discitis/osteomyelitis with epidural abscess (6) S/p Thoracic surgery We will continued on Dilaudid and [place]. An Rx was sent to patients pharmacy of choice for [place] 10/325mg 30 tabs. D/w Dr. Stevens and he concurred. Subjective Date patient seen: Oct 04, 2017 Time patient seen: 05:00 - pm Allergies: Coded Allergies: FISH DERIVED (Verified Allergy, Unknown, 10/02/17) MAYONNAISE (Verified Allergy, Unknown, 10/02/17) Uncoded Allergies: seafood (Allergy, Unknown, 10/02/17) Subjective REVIEW OF SYSTEMS: Denies rash, fever, chills, sweating, dizziness, drowsiness, blurred vision, sore throat, or change in weight. No nausea, vomiting, diarrhea, or blood in the stool or urine. He is complaining of neck and back pain. SUBJECTIVE: Patient is in bed and will be discharged home with home health. His pain has been stable on the Dilaudid and [place]. Objective Last 24 Hour Vital Signs Date Time Temp Pulse Resp B/P (MAP) Pulse Ox O2 Delivery O2 Flow Rate FiO2 10/04/17 20:29 98.4 10/04/17 20:09 Room Air 10/04/17 19:57 98.4 88 18 108/62 (77) 98 98.4 10/04/17 17:23 98.1 10/04/17 16:24 98.1 10/04/17 16:05 98.0 85 20 118/68 (85) 98 98.0 10/04/17 13:52 98.1 82 17 104/56 (72) 96 98.1 10/04/17 08:13 98.1 10/04/17 07:26 98.1 89 17 113/68 (83) 96 98.1 10/04/17 07:07 Room Air 10/04/17 04:02 98.1 10/04/17 03:56 98.1 84 17 118/63 (81) 96 98.1 10/04/17 00:44 97.5 90 19 127/71 (89) 96 97.5 10/03/17 23:58 97.7 Intake and Output 10/03/17 10/04/17 19:00 07:00 Intake Total 760 ml 710 ml Output Total 725 ml Balance 35 ml 710 ml Intake Oral 760 ml 380 ml IV Total 330 ml Output Urine Total 725 ml # Voids 3 Laboratory Tests 10/04/17 05:00: HIV-1 RNA (PCR) log10 Value [Pending], HIV-1 RNA Ultraquantitative (PCR) [ Pending] Height (Feet): 5 Height (Inches): 7.00 Weight (Pounds): 149 Mark Rausch Oct 04, 2017 21:25
[2017-10-05] MEDS: HYDROmorphone 4mg tab ORAL PRN ×4 (00:29→11:55)
[2017-10-05] MEDS: Oxacillin 2 GM in NS 110 ML IVPB SCH ×4 (00:29→11:54)
[2017-10-05 04:00] VITALS: BP 103/57
[2017-10-05 06:35] LABS: EOSINOPHILS % (AUTO) 7.4 % (0.0-3.0); HEMATOCRIT 28.7 % (42.0-52.0); HEMOGLOBIN 9.1 G/DL (14.2-18.0); MEAN CORPUSCULAR VOLUME 86 FL (80-99); MONOCYTES % (AUTO) 8.7 % (1.0-10.0); PLATELET COUNT 227 K/UL (150-450); RED BLOOD COUNT 3.35 M/UL (4.70-6.10); RED CELL DISTRIBUTION WIDTH 14.5 % (11.6-14.8); WHITE BLOOD COUNT 5.9 K/UL (4.8-10.8)
[2017-10-05 07:29] LABS: ALANINE AMINOTRANSFERASE 18 U/L (12-78); ALBUMIN 2.4 G/DL (3.4-5.0); ALBUMIN/GLOBULIN RATIO 0.5 (1.0-2.7); ALKALINE PHOSPHATASE 124 U/L (46-116); ANION GAP 7 mmol/L (5-15); ASPARTATE AMINO TRANSFERASE 17 U/L (15-37); BILIRUBIN,TOTAL 0.3 MG/DL (0.2-1.0); BLOOD UREA NITROGEN 17 mg/dL (7-18); CARBON DIOXIDE 28 MMOL/L (21-32); CHLORIDE 103 MMOL/L (98-107); CREATININE 0.6 MG/DL (0.55-1.30); SODIUM 138 MMOL/L (136-145)
[2017-10-05] MEDS: Heparin 5000 units/ml inj SUBQ SCH (08:04)
[2017-10-05 08:59] VITALS: BP 115/74
--- NOTE | 2017-10-05 09:29 | General Progress Note ---
Assessment/Plan Assessment/Plan (1) Lumbar Spondylosis (2) S/p Lumbar surgery (3) Cervical spinal stenosis (4) S/p Cervical surgery (5) T9-10 discitis/osteomyelitis with epidural abscess (6) S/p Thoracic surgery We will continue the Erika and [place]. D/w Dr. Stevens and he concurred. Subjective Date patient seen: Oct 05, 2017 Time patient seen: 08:00 - am Allergies: Coded Allergies: FISH DERIVED (Verified Allergy, Unknown, 10/02/17) MAYONNAISE (Verified Allergy, Unknown, 10/02/17) Uncoded Allergies: seafood (Allergy, Unknown, 10/02/17) Subjective REVIEW OF SYSTEMS: Denies rash, fever, chills, sweating, dizziness, drowsiness, blurred vision, sore throat, or change in weight. No nausea, vomiting, diarrhea, or blood in the stool or urine. He is complaining of neck and back pain. SUBJECTIVE: Patient reports that his pain has been stable and is looking forward to being discharged home later this morning. He has no new complaints. Objective Last 24 Hour Vital Signs Date Time Temp Pulse Resp B/P (MAP) Pulse Ox O2 Delivery O2 Flow Rate FiO2 10/05/17 08:59 97.2 83 18 115/74 (88) 98 97.2 10/05/17 05:35 98.4 10/05/17 04:36 98.4 10/05/17 04:00 98.0 74 18 103/57 (72) 98 98.0 10/05/17 00:29 98.4 10/04/17 20:29 98.4 10/04/17 20:09 Room Air 10/04/17 19:57 98.4 88 18 108/62 (77) 98 98.4 10/04/17 16:24 98.1 10/04/17 16:05 98.0 85 20 118/68 (85) 98 98.0 10/04/17 13:52 98.1 82 17 104/56 (72) 96 98.1 Intake and Output 10/04/17 10/05/17 19:00 07:00 Intake Total 960 ml 810 ml Output Total 300 ml Balance 660 ml 810 ml Intake Oral 300 ml 480 ml IV Total 660 ml 330 ml Output Urine Total 300 ml # Voids 3 Laboratory Tests 10/05/17 05:00: White Blood Count 5.9, Red Blood Count 3.35L, Hemoglobin 9.1L, Hematocrit 28.7L , Mean Corpuscular Volume 86, Mean Corpuscular Hemoglobin 27.1, Mean Corpuscular Hemoglobin Concent 31.7L, Red Cell Distribution Width 14.5, Platelet Count 227, Mean Platelet Volume 6.6, Neutrophils (%) (Auto) 46.0, Lymphocytes (%) (Auto) 37.0, Monocytes (%) (Auto) 8.7, Eosinophils (%) (Auto) 7.4H, Basophils (%) (Auto) 1.0, Erythrocyte Sedimentation Rate 115H, Sodium Level 138, Potassium Level 4.0, Chloride Level 103, Carbon Dioxide Level 28, Anion Gap 7, Blood Urea Nitrogen 17, Creatinine 0.6, Estimat Glomerular Filtration Rate > 60, Glucose Level 98, Calcium Level 9.0, Total Bilirubin 0.3, Aspartate Amino Transf (AST/SGOT) 17, Alanine Aminotransferase (ALT/SGPT) 18, Alkaline Phosphatase 124H, C-Reactive Protein, Quantitative 1.8H, Total Protein 7.4, Albumin 2.4L, Globulin 5.0, Albumin/Globulin Ratio 0.5L Height (Feet): 5 Height (Inches): 7.00 Weight (Pounds): 149 Mark Rausch Oct 05, 2017 09:29
[2017-10-05 12:03] VITALS: BP 113/71
--- NOTE | 2017-10-05 13:30 | Pulmonology Progress Note ---
Assessment/Plan Problems: (1) Epidural abscess (2) HIV (human immunodeficiency virus infection) (3) Hepatitis C (4) COPD (chronic obstructive pulmonary disease) Assessment/Plan all set for dc to home continue abx for 2 more weeks dc planning in progress analgesics dc home with HH. respiratory treatment Subjective ROS Limited/Unobtainable: No Constitutional: Reports: no symptoms HEENT: Repors: no symptoms Respiratory: Reports: no symptoms Allergies: Coded Allergies: FISH DERIVED (Verified Allergy, Unknown, 10/02/17) MAYONNAISE (Verified Allergy, Unknown, 10/02/17) Uncoded Allergies: seafood (Allergy, Unknown, 10/02/17) Objective Last 24 Hour Vital Signs Date Time Temp Pulse Resp B/P (MAP) Pulse Ox O2 Delivery O2 Flow Rate FiO2 10/05/17 12:54 98.0 10/05/17 12:03 98.0 79 18 113/71 (85) 98 98.0 10/05/17 09:00 Room Air 10/05/17 08:59 97.2 83 18 115/74 (88) 98 97.2 10/05/17 04:36 98.4 10/05/17 04:00 98.0 74 18 103/57 (72) 98 98.0 10/05/17 00:29 98.4 10/04/17 20:29 98.4 10/04/17 20:09 Room Air 10/04/17 19:57 98.4 88 18 108/62 (77) 98 98.4 10/04/17 16:24 98.1 10/04/17 16:05 98.0 85 20 118/68 (85) 98 98.0 10/04/17 13:52 98.1 82 17 104/56 (72) 96 98.1 Intake and Output 10/04/17 10/05/17 19:00 07:00 Intake Total 960 ml 810 ml Output Total 300 ml Balance 660 ml 810 ml Intake Oral 300 ml 480 ml IV Total 660 ml 330 ml Output Urine Total 300 ml # Voids 3 General Appearance: WD/WN HEENT: normocephalic, atraumatic Respiratory/Chest: chest wall non-tender, normal breath sounds Cardiovascular: normal peripheral pulses, regular rhythm Abdomen: normal bowel sounds, soft, non tender Genitourinary: normal external genitalia Extremities: no clubbing 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 Complete 10/02/17 21:00 Stool VRE Culture - Final Enterococcus Faecium - Vre Complete 10/02/17 21:00 Rectum - Final NO CARBAPENEM-RESISTANT ENTEROBACTERI... Complete Laboratory Tests 10/05/17 05:00: White Blood Count 5.9, Red Blood Count 3.35L, Hemoglobin 9.1L, Hematocrit 28.7L , Mean Corpuscular Volume 86, Mean Corpuscular Hemoglobin 27.1, Mean Corpuscular Hemoglobin Concent 31.7L, Red Cell Distribution Width 14.5, Platelet Count 227, Mean Platelet Volume 6.6, Neutrophils (%) (Auto) 46.0, Lymphocytes (%) (Auto) 37.0, Monocytes (%) (Auto) 8.7, Eosinophils (%) (Auto) 7.4H, Basophils (%) (Auto) 1.0, Erythrocyte Sedimentation Rate 115H, Sodium Level 138, Potassium Level 4.0, Chloride Level 103, Carbon Dioxide Level 28, Anion Gap 7, Blood Urea Nitrogen 17, Creatinine 0.6, Estimat Glomerular Filtration Rate > 60, Glucose Level 98, Calcium Level 9.0, Total Bilirubin 0.3, Aspartate Amino Transf (AST/SGOT) 17, Alanine Aminotransferase (ALT/SGPT) 18, Alkaline Phosphatase 124H, C-Reactive Protein, Quantitative 1.8H, Total Protein 7.4, Albumin 2.4L, Globulin 5.0, Albumin/Globulin Ratio 0.5L Current Medications Medications (Trade) Dose Ordered Sig/Veronica Route PRN Reason Start Time Stop Time Status Last Admin Dose Admin Acetaminophen (Tylenol) 650 mg Q4H PRN ORAL fever 10/02/17 21:00 11/01/17 20:59 Acetaminophen/ Hydrocodone Bitart ([place] 10/325) 1 tab Q6H PRN ORAL For breakthrough Pain 10/03/17 08:15 10/10/17 08:14 Al Hydroxide/Mg Hydroxide (Mylanta II) 30 ml Q6H PRN ORAL dyspepsia 10/02/17 21:00 11/01/17 20:59 Dextrose (Dextrose 50%) 25 ml STAT PRN IV Hypoglycemia 10/02/17 21:00 11/01/17 20:59 Dextrose (Dextrose 50%) 50 ml STAT PRN IV Hypoglycemia 10/02/17 21:15 11/01/17 21:14 Gabapentin (Neurontin) 300 mg THREE TIMES A DAY ORAL 10/03/17 09:00 11/02/17 08:59 10/05/17 11:55 Heparin Sodium (Porcine) (Heparin 5000 units/ml) 5,000 units EVERY 12 HOURS SUBQ 10/02/17 21:00 11/01/17 20:59 10/05/17 08:04 Hydromorphone HCl (Dilaudid) 4 mg Q4H PRN ORAL Severe Pain (Pain Scale 7-10) 10/03/17 08:15 10/10/17 08:14 10/05/17 11:55 Lorazepam (Ativan 2mg/ml 1ml) 0.5 mg Q4H PRN IV For Anxiety 10/02/17 21:00 10/09/17 20:59 Ondansetron HCl (Zofran) 4 mg Q6H PRN IVP Nausea & Vomiting 10/02/17 21:00 11/01/17 20:59 Oxacillin Sodium 2 gm/Sodium Chloride 110 ml @ 220 mls/hr EVERY 4 HOURS IVPB 10/03/17 13:00 10/10/17 12:59 10/05/17 11:54 Polyethylene Glycol (Miralax) 17 gm HSPRN PRN ORAL Constipation 10/02/17 21:00 11/01/17 20:59 Zolpidem Tartrate (Ambien) 5 mg HSPRN PRN ORAL Insomnia 10/02/17 21:00 10/09/17 20:59 10/03/17 01:13 Sally Cox MD Oct 05, 2017 13:30
[2017-10-05] MEDS ORDERED: NS 275ml ONE (13:39)
--- NOTE | 2017-10-05 23:15 | Consultation ---
DATE OF CONSULTATION: 10/05/2017 MEDICAL CONSULTATION TIME: 1 p.m. CONSULTING PHYSICIAN: Chemo Dietrich D.O. CHIEF COMPLAINT: Sepsis, abscess, and diskitis. BRIEF HISTORY: The patient is a 57-year-old male, previously hospitalized here at [facility], was transferred to [facility] for neuro evaluation. The patient transferred back here and was admitted by Dr. Cox for further care. Currently, calm in bed, feeling a lot better, no complaint otherwise. Discharge plan in progress. No chest pain. Slight short of breath. No nausea, vomiting, or diarrhea. PAST MEDICAL HISTORY: Includes drug abuse, HIV, COPD, hepatitis C, empyema, and epidural abscess. MEDICATIONS: Include oxacillin, Neurontin, Dilaudid, hydrocodone, Zofran, and lorazepam. ALLERGIES: None. SOCIAL HISTORY: Unable to obtain. The patient is slightly sleepy now. PHYSICAL EXAMINATION: GENERAL: Calm in bed, sleepy, not talking much. VITAL SIGNS: Temperature is 98 degrees, pulse 89, respirations 18, and blood pressure 113/71. CARDIOVASCULAR: No murmurs. LUNGS: Poor air exchange. ABDOMEN: Bowel sounds distant. EXTREMITIES: No cyanosis, clubbing, or edema. NEUROLOGIC: The patient moves all extremities. Slightly weak. LABORATORY AND DIAGNOSTIC DATA: Hemoglobin 9.1, otherwise CBC is normal. ESR is 115. BMP showed alkaline phosphatase 124 and albumin 2.4. ASSESSMENT: 1. History of thoracic diskitis. 2. Sepsis. 3. Anemia. 4. Left thoracic abscess. 5. Human immunodeficiency virus. 6. Chronic obstructive pulmonary disease. 7. Hepatitis C. 8. Empyema. PLAN: 1. Antibiotics per Infectious Disease. 2. Pain control. 3. Dietary followup. 4. Discharge plan in progress. 5. We will continue to follow this patient. Chemo Dietrich D.O. DR: JENNI JOB#: [id number] CC:
--- NOTE | 2017-10-07 13:40 | Discharge Summary ---
Discharge Summary Discharge Summary _ DATE OF ADMISSION: 10/02/2017 DATE OF DISCHARGE: REASON FOR ADMISSION: 57 years old male with past medical history of HIV (long-standing, non- progressor for about 25 years), hepatitis C, polysubstance abuse in the past, tobacco abuse, COPD/asthma, recent MSSA empyema, status post VATS (with incomplete treatment due to leaving AMA) , cervical/thoracic/lumbar discitis/ osteomyelitis, thoracic epidural abscess, status post cervical, thoracic and lumbar decompression at [facility], was transferred back to [facility] on 10/02 for physical therapy and completion of IV antibiotics. Laboratory workup was stable. Patient was afebrile. Patient admitted with diagnose s of epidural abscess , status post decompression, HIV status , hepatitis C, COPD/asthma, recent MSSA bacteremia consistent with empyema status post VATS, polysubstance abuse CONSULTANTS: pulmonary Dr. Cox ID specialist [facility] pain specialist Dr. Stevens [facility] COURSE: Patient admitted. Patient undergone extensive decompression surgeries with decompression at [facility]. ID specialist closely followed. Antibiotic were continued under ID specialist recommendations and direction. Pain management provided as per pain specialist recommendation. Patient was working with physical and occupational therapists. Wound care provided as per wound protocol. Aspiration precautions were maintain. Per ID specialist patient will need to complete total of 56 days course of antibiotics for osteomyelitis/epidural abscess. FINAL DIAGNOSES: Epidural abscess Severe thoracic and cervical discitis/osteomyelitis s/p recent cervical, thoracic and lumbar decompression Recent MSSA empyema , status post VATS COPD/asthma HIV status Hepatitis C Smoking DISCHARGE MEDICATIONS: See Medication Reconciliation list. DISCHARGE INSTRUCTIONS: Patient was discharged home with home health services. Follow up with primary care provider in one week. I have been assigned to dictate discharge summary for this account. I was not involved in the patient's management. Abbey Powell NP Oct 07, 2017 13:40
== END 2017-10-05 13:40 | disposition home IV services (08) | DRG 94 ==
LOC: 4W 19:53
DX: G06.1 Intraspinal abscess and granuloma (principal); B20 Human immunodeficiency virus [HIV] disease; M46.24 Osteomyelitis of vertebra, thoracic region; M46.22 Osteomyelitis of vertebra, cervical region; Z98.890 Other specified postprocedural states; B19.20 Unspecified viral hepatitis C without hepatic coma; J44.9 Chronic obstructive pulmonary disease, unspecified; F17.200 Nicotine dependence, unspecified, uncomplicated; M46.42 Discitis, unspecified, cervical region; M46.44 Discitis, unspecified, thoracic region; M47.896 Other spondylosis, lumbar region; M48.02 Spinal stenosis, cervical region
CPT/HCPCS: 36415; 80053; 84443; 85025; 85651; 86140; 87081; 87536; J2700

== ENCOUNTER 2017-10-09 16:11 | Inpatient (IN) | payer MEDICARE, OTHER ==
[~2017-10-09] VITALS: Ht 165.1 cm; Wt 68.0 kg
[~2017-10-09 16:11] MED LIST changes: +ancef IV BOLUS
[2017-10-09 16:30] VITALS: BP 159/67
[2017-10-09] MEDS ORDERED: Vancomycin 1 GM in NS 275 ML IV ONE (16:30)
[2017-10-09 17:24] LABS: BASOPHILS % (AUTO) 0.7 % (0.0-2.0); HEMATOCRIT 31.5 % (42.0-52.0); HEMOGLOBIN 10.8 G/DL (14.2-18.0); LYMPHOCYTES % (AUTO) 19.3 % (20.0-45.0); MEAN CORPUSCULAR VOLUME 83 FL (80-99); MONOCYTES % (AUTO) 6.3 % (1.0-10.0); NEUTROPHILS % (AUTO) 72.7 % (45.0-75.0); PLATELET COUNT 264 K/UL (150-450); RED BLOOD COUNT 3.78 M/UL (4.70-6.10); RED CELL DISTRIBUTION WIDTH 14.1 % (11.6-14.8); WHITE BLOOD COUNT 11.6 K/UL (4.8-10.8)
[2017-10-09] MEDS ORDERED: Morphine Sulfate 4mg/ml Inj (IV USE ONLY) IVP ONE (17:30)
[2017-10-09] MEDS ORDERED: Ketorolac 30mg Inj IV ONE (17:30)
[2017-10-09 17:31] LABS: ANION GAP 13 mmol/L (5-15); BLOOD UREA NITROGEN 13 mg/dL (7-18); CALCIUM 9.7 MG/DL (8.5-10.1); CARBON DIOXIDE 24 MMOL/L (21-32); CHLORIDE 98 MMOL/L (98-107); CREATININE 0.6 MG/DL (0.55-1.30); POTASSIUM 3.4 MMOL/L (3.5-5.1); SODIUM 135 MMOL/L (136-145)
[2017-10-09 17:45] LABS: ALANINE AMINOTRANSFERASE 26 U/L (12-78); ALBUMIN 3.2 G/DL (3.4-5.0); ALBUMIN/GLOBULIN RATIO 0.6 (1.0-2.7); ALKALINE PHOSPHATASE 130 U/L (46-116); ASPARTATE AMINO TRANSFERASE 36 U/L (15-37); BILIRUBIN,TOTAL 0.6 MG/DL (0.2-1.0); CREATINE KINASE 689 U/L (26-308)
[2017-10-09] MEDS ORDERED: UNOBMED (17:46)
[2017-10-09 19:10] VITALS: BP 141/72
[2017-10-09] MEDS ORDERED: Morphine Sulfate 2mg/ml Inj IVP PRN (19:45)
[2017-10-09] MEDS ORDERED: Morphine Sulfate 4mg/ml Inj (IV USE ONLY) IVP PRN (19:45)
[2017-10-09] MEDS ORDERED: Zolpidem 5mg tab ORAL PRN (19:45)
[2017-10-09] MEDS ORDERED: Miralax 17gm pkt ORAL PRN (19:45)
[2017-10-09] MEDS ORDERED: LORazepam Inj 2mg/ml 1ml IV PRN (19:45)
[2017-10-09] MEDS ORDERED: Mylanta II UD 30ml ORAL PRN (19:45)
[2017-10-09 19:49] LABS: APPEARANCE,URINE SLIGHTLY CLOUDY; BILIRUBIN, URINE NEGATIVE (NEGATIVE); GLUCOSE, URINE (UA) NEGATIVE (NEGATIVE); KETONES,URINE 4+ (NEGATIVE); LEUKOCYTE ESTERASE ,URINE 1+ (NEGATIVE); NITRITE,URINE NEGATIVE (NEGATIVE); PH,URINE 5 (4.5-8.0); PROTEIN,URINE 2+ (NEGATIVE); UROBILINOGEN,URINE 1 MG/DL (0.0-1.0)
[2017-10-09 19:55] LABS: COLOR,URINE YELLOW
[2017-10-09] MEDS ORDERED: Norco 5mg/325mg tab ORAL PRN (20:02)
[2017-10-09 20:30] VITALS: BP 154/78
[2017-10-09] MEDS: HYDROmorphone 1mg/ml Carpuject IVP PRN (21:22)
[2017-10-09] MEDS: Heparin 5000 units/ml inj SUBQ SCH (21:29)
--- NOTE | 2017-10-09 22:46 | Emergency Room Report ---
History of Present Illness General Chief Complaint: Multiple Trauma/Fall Source: Patient, Medical Record, EMS Present Illness HPI This patient recently underwent multiple laminectomies in the C-spine and L- spine. He states he was at home in the bathtub any slipped and fell in the bathtub yesterday. He states that he was unable to get out of the bathtub for one full day. He complains of pain in his low back. He has no other complaints. Allergies: Coded Allergies: FISH DERIVED (Verified Allergy, Unknown, 10/02/17) MAYONNAISE (Verified Allergy, Unknown, 10/02/17) Uncoded Allergies: seafood (Allergy, Unknown, 10/02/17) Patient History Past Medical History: see triage record, HTN, asthma, COPD, HIV, other - HEP C Social History: Denies: smoking, alcohol use, drug use Reviewed Nursing Documentation: PMH: Agreed; PSxH: Agreed Nursing Documentation-PMH Past Medical History: No History, Except For Hx Cardiac Problems: No Hx Hypertension: Yes Hx Asthma: Yes Hx COPD: Yes Hx Diabetes: No Hx Cancer: No Hx Gastrointestinal Problems: Yes - HEP C, AIDS Hx Dialysis: No History Of Psychiatric Problem: No Hx Neurological Problems: No Hx Cerebrovascular Accident: No Hx Seizures: No Review of Systems All Other Systems: negative except mentioned in HPI Physical Exam Vital Signs Date Time Temp Pulse Resp B/P (MAP) Pulse Ox O2 Delivery O2 Flow Rate FiO2 10/09/17 16:12 97.6 94 16 144/72 98 Room Air 97.5 Sp02 EP Interpretation: reviewed, normal General Appearance: no apparent distress, alert, GCS 15, non-toxic Head: normocephalic, atraumatic Eyes: bilateral eye normal inspection, bilateral eye PERRL ENT: hearing grossly normal, normal pharynx, no angioedema, normal voice Neck: full range of motion, supple/symm/no masses Respiratory: chest non-tender, lungs clear, normal breath sounds, no respiratory distress, no retraction, no accessory muscle use, speaking full sentences Cardiovascular #1: regular rate, rhythm, no edema Gastrointestinal: normal bowel sounds, non tender, soft, non-distended, no guarding, no rebound Rectal: deferred Musculoskeletal: normal range of motion, non-tender, other - Pain in spine at surgical site with movement. Neurologic: alert, oriented x3, responsive, motor strength/tone normal, sensory intact, speech normal Psychiatric: judgement/insight normal, memory normal, mood/affect normal, no suicidal/homicidal ideation Skin: no rash, warm/dry, well hydrated, other - Lumbar spine venecia in place. small amount of skin maceration but no dehiscence. Medical Decision Making Diagnostic Impression: Primary Impression: Fall Additional Impression: Postoperative back pain ER Course This patient is status post fall after a laminectomy. He underwent a CT of the lumbar spine given the recent surgery and there was no evidence of fracture or injury related to the fall. He was also down in the bathtub for 24 hours. He has severe pain. I did control his pain with Toradol and small doses of morphine. He is admitted to observation for pain control and further assessment and evaluation of his postoperative wound which is slightly macerated from being wet but does not appear to have any dehiscence. The patient is admitted for further evaluation and treatment. Laboratory Tests Test 10/09/17 17:00 10/09/17 19:32 White Blood Count 11.6 K/UL (4.8-10.8) H Red Blood Count 3.78 M/UL (4.70-6.10) L Hemoglobin 10.8 G/DL (14.2-18.0) L Hematocrit 31.5 % (42.0-52.0) L Mean Corpuscular Volume 83 FL (80-99) Mean Corpuscular Hemoglobin 28.6 PG (27.0-31.0) Mean Corpuscular Hemoglobin Concent 34.4 G/DL (32.0-36.0) Red Cell Distribution Width 14.1 % (11.6-14.8) Platelet Count 264 K/UL (150-450) Mean Platelet Volume 6.7 FL (6.5-10.1) Neutrophils (%) (Auto) 72.7 % (45.0-75.0) Lymphocytes (%) (Auto) 19.3 % (20.0-45.0) L Monocytes (%) (Auto) 6.3 % (1.0-10.0) Eosinophils (%) (Auto) 1.0 % (0.0-3.0) Basophils (%) (Auto) 0.7 % (0.0-2.0) Sodium Level 135 MMOL/L (136-145) L Potassium Level 3.4 MMOL/L (3.5-5.1) L Chloride Level 98 MMOL/L (98-107) Carbon Dioxide Level 24 MMOL/L (21-32) Anion Gap 13 mmol/L (5-15) Blood Urea Nitrogen 13 mg/dL (7-18) Creatinine 0.6 MG/DL (0.55-1.30) Estimate Glomerular Filtration Rate > 60 mL/min (>60) Glucose Level 114 MG/DL (74-106) H Lactic Acid Level 1.60 mmol/L (0.4-2.0) Calcium Level 9.7 MG/DL (8.5-10.1) Total Bilirubin 0.6 MG/DL (0.2-1.0) Aspartate Amino Transferase (AST) 36 U/L (15-37) Alanine Aminotransferase (ALT) 26 U/L (12-78) Alkaline Phosphatase 130 U/L (46-116) H Total Creatine Kinase 689 U/L (26-308) H Creatine Kinase MB 3.0 NG/ML (0.0-3.6) Creatine Kinase MB Relative Index 0.4 Troponin I 0.001 ng/mL (0.000-0.056) Total Protein 8.3 G/DL (6.4-8.2) H Albumin 3.2 G/DL (3.4-5.0) L Globulin 5.1 g/dL Albumin/Globulin Ratio 0.6 (1.0-2.7) L Urine Color Yellow Urine Appearance Slightly cloudy Urine pH 5 (4.5-8.0) Urine Specific [place] 1.025 (1.005-1.035) Urine Protein 2+ (NEGATIVE) H Urine Glucose (UA) Negative (NEGATIVE) Urine Ketones 4+ (NEGATIVE) H Urine Blood 4+ (NEGATIVE) H Urine Nitrite Negative (NEGATIVE) Urine Bilirubin Negative (NEGATIVE) Urine Urobilinogen 1 MG/DL (0.0-1.0) H Urine Leukocyte Esterase 1+ (NEGATIVE) H Urine RBC 15-20 /HPF (0 - 0) H Urine WBC 0-2 /HPF (0 - 0) Urine Squamous Epithelial Cells Occasional /LPF Urine Bacteria Few /HPF (NONE) EKG Diagnostic Results Rate: normal Rhythm: NSR ST Segments: no acute changes Rhythm Strip Diag. Results EP Interpretation: yes Rate: 90's Rhythm: NSR, no PVC's, no ectopy Chest X-Ray Diagnostic Results Chest X-Ray Diagnostic Results : Chest X-Ray Ordered: Yes # of Views/Limited/Complete: 1 View Indication: Other EP Interpretation: Yes Interpretation: no consolidation, no effusion, no pneumothorax, no acute cardiopulmonary disease Impression: No acute disease Electronically Signed by: Saul CT/MRI/US Diagnostic Results CT/MRI/US Diagnostic Results : Imaging Test Ordered: CT L spine Impression Acute findings. See official report. Last Vital Signs Date Time Temp Pulse Resp B/P (MAP) Pulse Ox O2 Delivery O2 Flow Rate FiO2 10/09/17 20:55 Room Air 10/09/17 20:52 98.0 91 19 154/78 99 Disposition: ADMITTED INPATIENT Condition: Stable Referrals: NON PHYSICIAN (PCP) Griselda Nova DO Oct 09, 2017 22:45
[2017-10-10 00:46] VITALS: BP 141/72
[2017-10-10] MEDS: HYDROmorphone 1mg/ml Carpuject IVP PRN ×7 (02:17→20:52)
[2017-10-10 04:21] VITALS: BP 124/74
[2017-10-10 06:42] LABS: BASOPHILS % (AUTO) 0.6 % (0.0-2.0); HEMATOCRIT 29.7 % (42.0-52.0); HEMOGLOBIN 9.7 G/DL (14.2-18.0); LYMPHOCYTES % (AUTO) 26.1 % (20.0-45.0); MEAN CORPUSCULAR VOLUME 84 FL (80-99); MONOCYTES % (AUTO) 8.8 % (1.0-10.0); NEUTROPHILS % (AUTO) 61.6 % (45.0-75.0); PLATELET COUNT 210 K/UL (150-450); RED BLOOD COUNT 3.53 M/UL (4.70-6.10); RED CELL DISTRIBUTION WIDTH 13.8 % (11.6-14.8); WHITE BLOOD COUNT 8.2 K/UL (4.8-10.8)
[2017-10-10 07:03] LABS: ALANINE AMINOTRANSFERASE 22 U/L (12-78); ALBUMIN 2.5 G/DL (3.4-5.0); ALBUMIN/GLOBULIN RATIO 0.6 (1.0-2.7); ALKALINE PHOSPHATASE 106 U/L (46-116); ANION GAP 11 mmol/L (5-15); ASPARTATE AMINO TRANSFERASE 27 U/L (15-37); BILIRUBIN,TOTAL 0.3 MG/DL (0.2-1.0); BLOOD UREA NITROGEN 13 mg/dL (7-18); CALCIUM 8.9 MG/DL (8.5-10.1); CARBON DIOXIDE 25 MMOL/L (21-32); CHLORIDE 105 MMOL/L (98-107); CREATININE 0.6 MG/DL (0.55-1.30); POTASSIUM 3.3 MMOL/L (3.5-5.1); SODIUM 140 MMOL/L (136-145)
[2017-10-10 07:51] VITALS: BP 126/69
[2017-10-10] MEDS: Heparin 5000 units/ml inj SUBQ SCH ×2 (08:25→21:00)
--- NOTE | 2017-10-10 08:36 | General Progress Note ---
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 D/w Dr. Stevens and he concurred. Subjective Date patient seen: Oct 10, 2017 Time patient seen: 08:00 - am Allergies: Coded Allergies: FISH DERIVED (Verified Allergy, Unknown, 10/02/17) MAYONNAISE (Verified Allergy, Unknown, 10/02/17) Uncoded Allergies: seafood (Allergy, Unknown, 10/02/17) Subjective REVIEW OF SYSTEMS: Denies rash, fever, chills, sweating, dizziness, drowsiness, blurred vision, sore throat, or change in weight. No nausea, vomiting, diarrhea, or blood in the stool or urine. He is complaining of neck and back pain. SUBJECTIVE: Patient is a known patient from prior admission and has returned due to fall which occurred in the shower. CT scan was ordered and reviewed. Started on [place] 5/325mg Q4H PRN, Morphine 2-4mg IV Q4H PRN and Dilaudid 1mg IV Q3H PRN. He is in bed reporting pain is mild and tolerated on the medication. Objective Last 24 Hour Vital Signs Date Time Temp Pulse Resp B/P (MAP) Pulse Ox O2 Delivery O2 Flow Rate FiO2 10/10/17 07:51 98.2 98 18 126/69 (88) 95 98.2 10/10/17 04:21 97.8 99 18 124/74 (91) 93 97.8 99 10/10/17 00:46 98.2 97 19 141/72 (95) 93 98.2 97 10/09/17 20:55 Room Air 10/09/17 20:52 98.0 91 19 154/78 99 Room Air 10/09/17 20:30 98.0 91 19 154/78 99 Room Air 98.0 10/09/17 19:10 97 17 141/72 99 Room Air 10/09/17 16:30 98.1 89 18 159/67 97 Room Air 98.1 10/09/17 16:12 97.6 94 16 144/72 98 Room Air 97.5 Laboratory Tests 10/09/17 17:00: White Blood Count 11.6H, Red Blood Count 3.78L, Hemoglobin 10.8L, Hematocrit 31.5L, Mean Corpuscular Volume 83, Mean Corpuscular Hemoglobin 28.6, Mean Corpuscular Hemoglobin Concent 34.4, Red Cell Distribution Width 14.1, Platelet Count 264, Mean Platelet Volume 6.7, Neutrophils (%) (Auto) 72.7, Lymphocytes (% ) (Auto) 19.3L, Monocytes (%) (Auto) 6.3, Eosinophils (%) (Auto) 1.0, Basophils (%) (Auto) 0.7, Sodium Level 135L, Potassium Level 3.4L, Chloride Level 98, Carbon Dioxide Level 24, Anion Gap 13, Blood Urea Nitrogen 13, Creatinine 0.6, Estimat Glomerular Filtration Rate > 60, Glucose Level 114H, Lactic Acid Level 1.60, Calcium Level 9.7, Total Bilirubin 0.6, Aspartate Amino Transf (AST/SGOT) 36, Alanine Aminotransferase (ALT/SGPT) 26, Alkaline Phosphatase 130H, Total Creatine Kinase 689H, Creatine Kinase MB 3.0, Creatine Kinase MB Relative Index 0.4, Troponin I 0.001, Total Protein 8.3H, Albumin 3.2L, Globulin 5.1, Albumin/ Globulin Ratio 0.6L 10/09/17 19:32: Urine Color Yellow, Urine Appearance Slightly cloudy, Urine pH 5, Urine Specific [place] 1.025, Urine Protein 2+H, Urine Glucose (UA) Negative, Urine Ketones 4+H, Urine Blood 4+H, Urine Nitrite Negative, Urine Bilirubin Negative, Urine Urobilinogen 1H, Urine Leukocyte Esterase 1+H, Urine RBC 15-20H, Urine WBC 0-2, Urine Squamous Epithelial Cells Occasional, Urine Bacteria Few 10/10/17 05:20: White Blood Count 8.2, Red Blood Count 3.53L, Hemoglobin 9.7L, Hematocrit 29.7L , Mean Corpuscular Volume 84, Mean Corpuscular Hemoglobin 27.6, Mean Corpuscular Hemoglobin Concent 32.8, Red Cell Distribution Width 13.8, Platelet Count 210, Mean Platelet Volume 6.9, Neutrophils (%) (Auto) 61.6, Lymphocytes (% ) (Auto) 26.1, Monocytes (%) (Auto) 8.8, Eosinophils (%) (Auto) 3.0, Basophils ( %) (Auto) 0.6, Sodium Level 140, Potassium Level 3.3L, Chloride Level 105, Carbon Dioxide Level 25, Anion Gap 11, Blood Urea Nitrogen 13, Creatinine 0.6, Estimat Glomerular Filtration Rate > 60, Glucose Level 95, Calcium Level 8.9, Total Bilirubin 0.3, Aspartate Amino Transf (AST/SGOT) 27, Alanine Aminotransferase (ALT/SGPT) 22, Alkaline Phosphatase 106, Total Protein 7.0, Albumin 2.5L, Globulin 4.5, Albumin/Globulin Ratio 0.6L, Thyroid Stimulating Hormone (TSH) 0.884 Height (Feet): 5 Height (Inches): 5.00 Weight (Pounds): 150 General Appearance: no apparent distress, alert EENT: PERRL/EOMI Neck: limited range of motion, tenderness Respiratory/Chest: lungs clear, normal breath sounds Abdomen: non tender, soft Extremities: non-tender Edema: no edema noted Arm (L), no edema noted Arm (R), no edema noted Leg (L), no edema noted Leg (R), no edema noted Pedal (L), no edema noted Pedal (R), no edema noted Generalized Neurologic: alert, oriented x 3 Skin: normal pigmentation Objective Procedure: CT L Spine no Contrast Indication: Back pain secondary to recent fall and trauma. Recent surgery Technique: Continuous helical transaxial imaging of the lumbar spine was obtained from the lung bases to the pubic symphysis. No IV contrast was administered. Coronal 2-D reformats were also obtained. Study obtained in a Siemens sensation [address] Total Dose length Product (DLP): 414.[address] Dose Index Volume (CTDIvol): 13.6 mGy Comparison: None Findings: There are skin venecia still present posterior to the lumbar spine. Laminotomy at L2 noted. Laminectomies L3-L5 noted. Marked facet arthropathy at multiple levels demonstrated characterized by hypertrophied and sclerosis. Moderate narrowing of the intervertebral discs at multiple levels with endplate spur formation demonstrated. No acute fracture or malalignment is identified. There is multilevel narrowing of the neural foramen moderate to severe in degree. Aorta is moderately calcified. IMPRESSION: No acute fracture identified. Multilevel laminectomy performed recently. Moderate to severe degenerative disease of the lumbar spine as described above. Atherosclerotic vascular disease. Mark Rausch Oct 10, 2017 08:36
--- NOTE | 2017-10-10 09:39 | Diagnostic Imaging Report ---
Indication: Back pain secondary to recent fall and trauma. Recent surgery Technique: Continuous helical transaxial imaging of the lumbar spine was obtained from the lung bases to the pubic symphysis. No IV contrast was administered. Coronal 2-D reformats were also obtained. Study obtained in a Siemens sensation [address] Total Dose length Product (DLP): 414.[address] Dose Index Volume (CTDIvol): 13.6 mGy Comparison: None Findings: There are skin venecia still present posterior to the lumbar spine. Laminotomy at L2 noted. Laminectomies L3-L5 noted. Marked facet arthropathy at multiple levels demonstrated characterized by hypertrophied and sclerosis. Moderate narrowing of the intervertebral discs at multiple levels with endplate spur formation demonstrated. No acute fracture or malalignment is identified. There is multilevel narrowing of the neural foramen moderate to severe in degree. Aorta is moderately calcified. IMPRESSION: No acute fracture identified. Multilevel laminectomy performed recently. Moderate to severe degenerative disease of the lumbar spine as described above. Atherosclerotic vascular disease. [facility] has communicated the preliminary results to the Emergency Department. Their findings are largely concordant with this report. The CT scanner at [facility] is accredited by the [employer] and the scans are performed using dose optimization techniques as appropriate to a performed exam including Automatic Exposure control.
[2017-10-10 11:12] VITALS: BP 103/22
--- NOTE | 2017-10-10 11:12 | Diagnostic Imaging Report ---
Indication: Dyspnea Comparison: 09/10/2017 A single view chest radiograph was obtained. Findings: Heart size is normal. Cervical fusion plate and the lower thoracic two-level fusion hardware noted. Skin venecia indicative of recent surgery noted. No consolidation/airspace disease identified within the lungs. There is mild atelectasis in the left midlung. IMPRESSION: No acute cardiopulmonary disease
--- NOTE | 2017-10-10 13:32 | Pulmonology Progress Note ---
Assessment/Plan Problems: (1) Debility (2) Epidural abscess (3) COPD (chronic obstructive pulmonary disease) (4) Osteomyelitis (5) Hepatitis C (6) HIV (human immunodeficiency virus infection) Assessment/Plan IV abx pt/ot check wbc check H/H Subjective ROS Limited/Unobtainable: No Allergies: Coded Allergies: FISH DERIVED (Verified Allergy, Unknown, 10/02/17) MAYONNAISE (Verified Allergy, Unknown, 10/02/17) Uncoded Allergies: seafood (Allergy, Unknown, 10/02/17) Objective Last 24 Hour Vital Signs Date Time Temp Pulse Resp B/P (MAP) Pulse Ox O2 Delivery O2 Flow Rate FiO2 10/10/17 11:12 97.5 83 20 103/22 (49) 97 97.5 10/10/17 07:51 98.2 98 18 126/69 (88) 95 98.2 10/10/17 04:21 97.8 99 18 124/74 (91) 93 97.8 99 10/10/17 00:46 98.2 97 19 141/72 (95) 93 98.2 97 10/09/17 20:55 Room Air 10/09/17 20:52 98.0 91 19 154/78 99 Room Air 10/09/17 20:30 98.0 91 19 154/78 99 Room Air 98.0 10/09/17 19:10 97 17 141/72 99 Room Air 10/09/17 16:30 98.1 89 18 159/67 97 Room Air 98.1 10/09/17 16:12 97.6 94 16 144/72 98 Room Air 97.5 General Appearance: WD/WN HEENT: normocephalic, anicteric Respiratory/Chest: chest wall non-tender, lungs clear Cardiovascular: normal peripheral pulses, normal rate Abdomen: soft, non tender, no organomegaly Skin: no rash 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 Lymphatic: no neck adenopathy Laboratory Tests 10/09/17 17:00: White Blood Count 11.6H, Red Blood Count 3.78L, Hemoglobin 10.8L, Hematocrit 31.5L, Mean Corpuscular Volume 83, Mean Corpuscular Hemoglobin 28.6, Mean Corpuscular Hemoglobin Concent 34.4, Red Cell Distribution Width 14.1, Platelet Count 264, Mean Platelet Volume 6.7, Neutrophils (%) (Auto) 72.7, Lymphocytes (% ) (Auto) 19.3L, Monocytes (%) (Auto) 6.3, Eosinophils (%) (Auto) 1.0, Basophils (%) (Auto) 0.7, Sodium Level 135L, Potassium Level 3.4L, Chloride Level 98, Carbon Dioxide Level 24, Anion Gap 13, Blood Urea Nitrogen 13, Creatinine 0.6, Estimat Glomerular Filtration Rate > 60, Glucose Level 114H, Lactic Acid Level 1.60, Calcium Level 9.7, Total Bilirubin 0.6, Aspartate Amino Transf (AST/SGOT) 36, Alanine Aminotransferase (ALT/SGPT) 26, Alkaline Phosphatase 130H, Total Creatine Kinase 689H, Creatine Kinase MB 3.0, Creatine Kinase MB Relative Index 0.4, Troponin I 0.001, Total Protein 8.3H, Albumin 3.2L, Globulin 5.1, Albumin/ Globulin Ratio 0.6L 10/09/17 19:32: Urine Color Yellow, Urine Appearance Slightly cloudy, Urine pH 5, Urine Specific [place] 1.025, Urine Protein 2+H, Urine Glucose (UA) Negative, Urine Ketones 4+H, Urine Blood 4+H, Urine Nitrite Negative, Urine Bilirubin Negative, Urine Urobilinogen 1H, Urine Leukocyte Esterase 1+H, Urine RBC 15-20H, Urine WBC 0-2, Urine Squamous Epithelial Cells Occasional, Urine Bacteria Few 10/10/17 05:20: White Blood Count 8.2, Red Blood Count 3.53L, Hemoglobin 9.7L, Hematocrit 29.7L , Mean Corpuscular Volume 84, Mean Corpuscular Hemoglobin 27.6, Mean Corpuscular Hemoglobin Concent 32.8, Red Cell Distribution Width 13.8, Platelet Count 210, Mean Platelet Volume 6.9, Neutrophils (%) (Auto) 61.6, Lymphocytes (% ) (Auto) 26.1, Monocytes (%) (Auto) 8.8, Eosinophils (%) (Auto) 3.0, Basophils ( %) (Auto) 0.6, Sodium Level 140, Potassium Level 3.3L, Chloride Level 105, Carbon Dioxide Level 25, Anion Gap 11, Blood Urea Nitrogen 13, Creatinine 0.6, Estimat Glomerular Filtration Rate > 60, Glucose Level 95, Calcium Level 8.9, Total Bilirubin 0.3, Aspartate Amino Transf (AST/SGOT) 27, Alanine Aminotransferase (ALT/SGPT) 22, Alkaline Phosphatase 106, Total Protein 7.0, Albumin 2.5L, Globulin 4.5, Albumin/Globulin Ratio 0.6L, Thyroid Stimulating Hormone (TSH) 0.884 Current Medications Medications (Trade) Dose Ordered Sig/Veronica Route PRN Reason Start Time Stop Time Status Last Admin Dose Admin Acetaminophen (Tylenol) 650 mg Q4H PRN ORAL fever 10/09/17 19:45 11/08/17 19:44 Acetaminophen/ Hydrocodone Bitart ([place] 5/325) 1 tab Q4H PRN ORAL FOR MILD PAIN 10/09/17 20:02 10/16/17 20:01 Al Hydroxide/Mg Hydroxide (Mylanta II) 30 ml Q6H PRN ORAL dyspepsia 10/09/17 19:45 11/08/17 19:44 Cefazolin Sodium 50 ml @ 100 mls/hr Q8HR IVPB 10/10/17 14:00 10/17/17 13:59 Dextrose (Dextrose 50%) 25 ml PRN IV Hypoglycemia 10/09/17 20:15 11/08/17 20:14 Dextrose (Dextrose 50%) 50 ml PRN IV hypoglycemia 10/09/17 20:15 11/08/17 20:14 Gabapentin (Neurontin) 300 mg THREE TIMES A DAY ORAL 10/10/17 09:00 11/09/17 08:59 10/10/17 12:17 Heparin Sodium (Porcine) (Heparin 5000 units/ml) 5,000 units EVERY 12 HOURS SUBQ 10/09/17 21:00 11/08/17 20:59 10/10/17 08:25 Hydromorphone HCl (Dilaudid) 1 mg Q3H PRN IVP pain 7-10 10/09/17 19:45 10/16/17 19:44 10/10/17 11:26 Lorazepam (Ativan 2mg/ml 1ml) 0.5 mg Q4H PRN IV For Anxiety 10/09/17 19:45 10/16/17 19:44 Morphine Sulfate (Morphine Sulfate) 2 mg Q4H PRN IVP For Pain 4-6 10/09/17 19:45 10/16/17 19:44 Morphine Sulfate (Morphine Sulfate) 4 mg Q4H PRN IVP breakthrough pain 10/09/17 19:45 10/16/17 19:44 Ondansetron HCl (Zofran) 4 mg Q6H PRN IVP Nausea & Vomiting 10/09/17 19:45 11/08/17 19:44 Polyethylene Glycol (Miralax) 17 gm HSPRN PRN ORAL Constipation 10/09/17 19:45 11/08/17 19:44 Zolpidem Tartrate (Ambien) 5 mg HSPRN PRN ORAL Insomnia 10/09/17 19:45 10/16/17 19:44 Sally Cox MD Oct 10, 2017 13:32
[2017-10-10] MEDS ORDERED: ceFAZolin 2gm/50ml Premix 50 ML IVPB SCH (14:00)
[2017-10-10] MEDS: D5W IVPB SCH ×2 (14:54→22:37)
[2017-10-10] MEDS: CEFAZOLIN SOD IVPB SCH ×2 (14:54→22:37)
[2017-10-10 16:00] VITALS: BP 100/67
--- NOTE | 2017-10-10 16:47 | Cardiology Report ---
APPROVED REPORT EKG Measurement Heart [id number] Normal sinus rhythm Normal ECG
--- NOTE | 2017-10-10 16:53 | Consultation ---
History of Present Illness General Date patient seen: Oct 10, 2017 Chief Complaint: Multiple Trauma/Fall Present Illness HPI 57 y/o M with hx of HTN, HIV (long standing,, non processer, ~25 yrs), Hep C, polysubstance abuse in the past, COPD/asthma, tobaccou abuse, recent MSSA empyema s/p VATS (w/ incomplete tx due to leaving AMA) c/w cervical/thoracic/ lumbar discitis/OM, thoracic epidural abscess s/p cervical, thoracic and lumbar decompression at [facility]. Patient discharged from this hospital on 10/05 to home with PT and to continue IV abx. Patient returns back on 10/09 after falling at home in the bathtub and lower back pain. ID consulted for management of abx for recent MSSA bactereia and epidural abscess/discitis/ OM. Patient refers did not receive DME equipement for bathroom. Also that received IV pump and antibiotics but no one came to administer the antibiotics. Allergies: Coded Allergies: FISH DERIVED (Verified Allergy, Unknown, 10/02/17) MAYONNAISE (Verified Allergy, Unknown, 10/02/17) Uncoded Allergies: seafood (Allergy, Unknown, 10/02/17) Medication History Scheduled Gabapentin (Neurontin), 300 MG ORAL THREE TIMES A DAY Morphine Sulfate (Morphine Sulfate), 15 MG ORAL Q8H Oxacillin Sodium/Dextrose,Iso (Oxacillin 2 Gm/ 50 Ml Inj), 2 GM IV EVERY 4 HOURS Scheduled PRN Hydrocodone Bit/Acetaminophen 5-325* (Granite 5-325*), 1 TAB ORAL Q4H PRN for For Pain, (Reported) Hydromorphone HCl (Hydromorphone HCl), 1 MG IVP Q3H PRN [ancef], 2 GM IV BOLUS EVERY 8 HOURS PRN Miscellaneous Medications Unable to Obtain Medications (Unable To Obtain Meds), (Reported) Patient History Healthcare decision maker Resuscitation status Full Code Advanced Directive on File No Patient History Narrative Pmhx: as above Shx: reviewed Fhx: non contributory Review of Systems All Other Systems: negative except mentioned in HPI Physical Exam Physical Exam Narrative General Appearance: no apparent distress, alert EENT: PERRL/EOMI Neck: limited range of motion, tenderness Respiratory/Chest: lungs clear, normal breath sounds Abdomen: non tender, soft Extremities: non-tender Edema: no edema noted Arm (L), no edema noted Arm (R), no edema noted Leg (L), no edema noted Leg (R), no edema noted Pedal (L), no edema noted Pedal (R), no edema noted Generalized Neurologic: alert, oriented x 3 Skin: normal pigmentation Last 24 Hour Vital Signs Date Time Temp Pulse Resp B/P (MAP) Pulse Ox O2 Delivery O2 Flow Rate FiO2 10/10/17 16:00 98.4 92 18 100/67 (78) 96 98.4 10/10/17 11:12 97.5 83 20 103/22 (49) 97 97.5 10/10/17 07:51 98.2 98 18 126/69 (88) 95 98.2 10/10/17 04:21 97.8 99 18 124/74 (91) 93 97.8 99 10/10/17 00:46 98.2 97 19 141/72 (95) 93 98.2 97 10/09/17 20:55 Room Air 10/09/17 20:52 98.0 91 19 154/78 99 Room Air 10/09/17 20:30 98.0 91 19 154/78 99 Room Air 98.0 10/09/17 19:10 97 17 141/72 99 Room Air Laboratory Tests Test 10/09/17 17:00 10/09/17 19:32 10/10/17 05:20 White Blood Count 11.6 K/UL (4.8-10.8) H 8.2 K/UL (4.8-10.8) Red Blood Count 3.78 M/UL (4.70-6.10) L 3.53 M/UL (4.70-6.10) L Hemoglobin 10.8 G/DL (14.2-18.0) L 9.7 G/DL (14.2-18.0) L Hematocrit 31.5 % (42.0-52.0) L 29.7 % (42.0-52.0) L Mean Corpuscular Volume 83 FL (80-99) 84 FL (80-99) Mean Corpuscular Hemoglobin 28.6 PG (27.0-31.0) 27.6 PG (27.0-31.0) Mean Corpuscular Hemoglobin Concent 34.4 G/DL (32.0-36.0) 32.8 G/DL (32.0-36.0) Red Cell Distribution Width 14.1 % (11.6-14.8) 13.8 % (11.6-14.8) Platelet Count 264 K/UL (150-450) 210 K/UL (150-450) Mean Platelet Volume 6.7 FL (6.5-10.1) 6.9 FL (6.5-10.1) Neutrophils (%) (Auto) 72.7 % (45.0-75.0) 61.6 % (45.0-75.0) Lymphocytes (%) (Auto) 19.3 % (20.0-45.0) L 26.1 % (20.0-45.0) Monocytes (%) (Auto) 6.3 % (1.0-10.0) 8.8 % (1.0-10.0) Eosinophils (%) (Auto) 1.0 % (0.0-3.0) 3.0 % (0.0-3.0) Basophils (%) (Auto) 0.7 % (0.0-2.0) 0.6 % (0.0-2.0) Sodium Level 135 MMOL/L (136-145) L 140 MMOL/L (136-145) Potassium Level 3.4 MMOL/L (3.5-5.1) L 3.3 MMOL/L (3.5-5.1) L Chloride Level 98 MMOL/L (98-107) 105 MMOL/L (98-107) Carbon Dioxide Level 24 MMOL/L (21-32) 25 MMOL/L (21-32) Anion Gap 13 mmol/L (5-15) 11 mmol/L (5-15) Blood Urea Nitrogen 13 mg/dL (7-18) 13 mg/dL (7-18) Creatinine 0.6 MG/DL (0.55-1.30) 0.6 MG/DL (0.55-1.30) Estimat Glomerular Filtration Rate > 60 mL/min (>60) > 60 mL/min (>60) Glucose Level 114 MG/DL (74-106) H 95 MG/DL (74-106) Lactic Acid Level 1.60 mmol/L (0.4-2.0) Calcium Level 9.7 MG/DL (8.5-10.1) 8.9 MG/DL (8.5-10.1) Total Bilirubin 0.6 MG/DL (0.2-1.0) 0.3 MG/DL (0.2-1.0) Aspartate Amino Transf (AST/SGOT) 36 U/L (15-37) 27 U/L (15-37) Alanine Aminotransferase (ALT/SGPT) 26 U/L (12-78) 22 U/L (12-78) Alkaline Phosphatase 130 U/L (46-116) H 106 U/L (46-116) Total Creatine Kinase 689 U/L (26-308) H Creatine Kinase MB 3.0 NG/ML (0.0-3.6) Creatine Kinase MB Relative Index 0.4 Troponin I 0.001 ng/mL (0.000-0.056) Total Protein 8.3 G/DL (6.4-8.2) H 7.0 G/DL (6.4-8.2) Albumin 3.2 G/DL (3.4-5.0) L 2.5 G/DL (3.4-5.0) L Globulin 5.1 g/dL 4.5 g/dL Albumin/Globulin Ratio 0.6 (1.0-2.7) L 0.6 (1.0-2.7) L Urine Color Yellow Urine Appearance Slightly cloudy Urine pH 5 (4.5-8.0) Urine Specific [place] 1.025 (1.005-1.035) Urine Protein 2+ (NEGATIVE) H Urine Glucose (UA) Negative (NEGATIVE) Urine Ketones 4+ (NEGATIVE) H Urine Blood 4+ (NEGATIVE) H Urine Nitrite Negative (NEGATIVE) Urine Bilirubin Negative (NEGATIVE) Urine Urobilinogen 1 MG/DL (0.0-1.0) H Urine Leukocyte Esterase 1+ (NEGATIVE) H Urine RBC 15-20 /HPF (0 - 0) H Urine WBC 0-2 /HPF (0 - 0) Urine Squamous Epithelial Cells Occasional /LPF Urine Bacteria Few /HPF (NONE) Thyroid Stimulating Hormone (TSH) 0.884 uiU/mL (0.358-3.740) Height (Feet): 5 Height (Inches): 5.00 Weight (Pounds): 150 Medications Current Medications Medications (Trade) Dose Ordered Sig/Veronica Route PRN Reason Start Time Stop Time Status Last Admin Dose Admin Acetaminophen (Tylenol) 650 mg Q4H PRN ORAL fever 10/09/17 19:45 11/08/17 19:44 Acetaminophen/ Hydrocodone Bitart (Granite 5/325) 1 tab Q4H PRN ORAL FOR MILD PAIN 10/09/17 20:02 10/16/17 20:01 Al Hydroxide/Mg Hydroxide (Mylanta II) 30 ml Q6H PRN ORAL dyspepsia 10/09/17 19:45 11/08/17 19:44 Cefazolin Sodium 2 gm/Dextrose 110 ml @ 220 mls/hr Q8H IVPB 10/10/17 14:30 10/17/17 14:29 10/10/17 14:54 Dextrose (Dextrose 50%) 25 ml PRN IV Hypoglycemia 10/09/17 20:15 11/08/17 20:14 Dextrose (Dextrose 50%) 50 ml PRN IV hypoglycemia 10/09/17 20:15 11/08/17 20:14 Gabapentin (Neurontin) 300 mg THREE TIMES A DAY ORAL 10/10/17 09:00 11/09/17 08:59 10/10/17 12:17 Heparin Sodium (Porcine) (Heparin 5000 units/ml) 5,000 units EVERY 12 HOURS SUBQ 10/09/17 21:00 11/08/17 20:59 10/10/17 08:25 Hydromorphone HCl (Dilaudid) 1 mg Q3H PRN IVP pain 7-10 10/09/17 19:45 10/16/17 19:44 10/10/17 14:46 Lorazepam (Ativan 2mg/ml 1ml) 0.5 mg Q4H PRN IV For Anxiety 10/09/17 19:45 10/16/17 19:44 Morphine Sulfate (Morphine Sulfate) 2 mg Q4H PRN IVP For Pain 4-6 10/09/17 19:45 10/16/17 19:44 Morphine Sulfate (Morphine Sulfate) 4 mg Q4H PRN IVP breakthrough pain 10/09/17 19:45 10/16/17 19:44 Ondansetron HCl (Zofran) 4 mg Q6H PRN IVP Nausea & Vomiting 10/09/17 19:45 11/08/17 19:44 Polyethylene Glycol (Miralax) 17 gm HSPRN PRN ORAL Constipation 10/09/17 19:45 11/08/17 19:44 Zolpidem Tartrate (Ambien) 5 mg HSPRN PRN ORAL Insomnia 10/09/17 19:45 10/16/17 19:44 Assessment/Plan Assessment/Plan Abx: Anc Assessment: # Leukocytosis, SP- likely reactive -afebrile -u/a neg -CXR: no acute disease #Low back pain s/p fall -CT L spine: No acute fracture identified. Multilevel laminectomy performed recently. Moderate to severe degenerative disease of the lumbar spine as described above. Atherosclerotic vascular disease. #Recent MSSA bacteremia c/w empyema and severe Thoracic and Cervical OM/ Discitis and epidural abscess 09/25 SP Complete lumbar laminectomy at L2, L3, L4 and L5.. Decompression of the cauda equina. Resection of epidural calcified hypertrophied tissues. Partial diskectomy and biopsy at the level of L2-L3 because of suspected diskitis at that level. 09/20: SP 1-Anterior cervical discectomy complete at C3-4, C4-5, C5-6 bilateral foraminotomies 2-Decompression of the cervical spinal cord 3-Partial corpectomy at C3-4, C4-5, C5-6 , to allow placement of a large lordotic cages. Placement of a allograft lordotic cages x3 C3-4, C4-5, C5-6 5 Arthrodesis at C3 -4, C4-5, C5-6 6 Fluoroscopic guidance with interpretation of studies7 Microscope and microscopic dissection 09/18: bld cx: Negative 09/17: aerobic: neg, anaerobic: neg, fungal cx (sx): p 09/17: SP T8,9,10 laminectomy resection of epidural infected mass, epidural cultures , fixation of T9, T10 using pedicle screws by Dr. Alonzo OR findings: severe stenosis and sinal cord compression, epidural granulation tissue, no contreras pus noted 09/16: CXR: Mild diffuse bilateral hazy opacities. 09/15: blood cx: Coagulase Negative Staphylococcus .Growth in 1 of 2 blood culture bottles. bld cx (2nd set): neg 09/16: US Renal: No hydronephrosis or large renal stones. Small renal stones cannot be excluded on ultrasound. 09/17 : MRI C-spine: Impression: Inflammatory process at C5-C6 possibly due to discitis with pressure upon the anterior cord surface on the left severe narrowing of the right neural foramen by osteophytes. At C3-4 narrowing of the right neural foramen by bulging disc and osteophytes. 45 effacement of the anterior cord surface on the left by a 4 to 5 mm disc protrusion with endplate osteophytes. Bilateral foraminal narrowing. C6-7 narrowing of the entryway into the right neural foramen x 5 mm far right paracentral disc protrusion. There is some evidence of cord edema at the C3-C6 levels 09/17:CT Thoracic Spine WO Contrast: Redemonstration of severe discitis osteomyelitis at T9-10. 10/05 ESR 115, CRP 1.8 #Recent PsA UTI (+u hesitancy); s/p Rx -u/a +pyuria; 09/16: Ucx: >100,000 cfu/ml Gram Negative Rods-->>100,000 cfu/ml Pseudomonas aeruginosa hepatitis C HIV - previoulsy undetected for years off tx- now rising VL -09/16 HIV VL 52 > 10/05 600 COPD Plan: - cont. Ancef abx d# 42/ for OM/epidural abscess -10/05 SP Oxacillin #42 - 09/25 SP po cipro abx d#/ for PsA UTI - 09/19 SP IV Cefepime d#2 -f/u cx -Monitor CBC/CMP, temperatures -wound care -PT/OT -ESR, CRP, CD4 am -Will need to establish HIV care upon discharge Thank you for this consultation. Will continue to follow along with you. Discussed with Steph Giordano M.D. Oct 10, 2017 16:53
--- NOTE | 2017-10-10 18:19 | Consultation ---
Consult Note Consult Note NEUROLOGY CONSULTATION: Patient not cooperative with history or exam. Rude and disrespectful. Unable to evaluate. Please do not call me to evaluate this patient again. This is the second time he has behaved in an unacceptable manner. Julee Ansari M.D., M.S.P.H. JULEE ANSARI Oct 10, 2017 18:19
[2017-10-10 19:47] VITALS: BP 117/65
--- NOTE | 2017-10-10 21:15 | History and Physical Report ---
DATE OF ADMISSION: 10/09/2017 TIME: 2 p.m. CONSULTANTS: 1. Sally Cox M.D. 2. Isidro Ansari M.D. 3. Timbo Stevens M.D. 4. Gudelia Villa M.D. CHIEF COMPLAINT: Fall, weakness and HIV. BRIEF HISTORY: The patient is a 57-year-old male, who lives at home, presents with the following , unable to get up from several hours, was very weak, was brought to [facility], diagnosed the above, admitted to medical floor for further treatment. Currently calm, in bed. No complaint. No chest pain. No shortness of breath. No nausea, vomiting or diarrhea. PAST MEDICAL HISTORY: HIV, COPD, epidural abscess. PAST SURGICAL HISTORY: Knee surgery. MEDICATIONS: Cefazolin, gabapentin, dextrose, hydrocodone, hydromorphone, Tylenol, morphine, polyethylene glycol, and Zofran. ALLERGIES: Denies. SOCIAL HISTORY: Positive smoking. No alcohol. Positive cocaine, about a year ago. PHYSICAL EXAMINATION: GENERAL: Calm in bed, oriented x3, in no acute distress. VITAL SIGNS: Temperature is 97 degrees, pulse 83, respirations 20 and blood pressure 126/69. CARDIOVASCULAR: No murmur. LUNGS: Distant and clear. ABDOMEN: Bowel sounds positive. Nontender. Nondistended. EXTREMITIES: No cyanosis or edema. NEUROLOGIC: The patient moves all extremities, but slightly weak. LABORATORY AND DIAGNOSTIC DATA: Initial white count 11.6, it is now 8.2, hemoglobin and hematocrit is 9.7/29, and otherwise CBC is normal. BMP show potassium 3.3, otherwise, BMP is normal. Albumin 2.5. Urinalysis show 1+ leukocyte esterase. ASSESSMENT: Fall, weakness, UTI, malnutrition, HIV, COPD, drug abuse, history of epidural abscess and hypokalemia. PLAN: 1. Continue previous medications. 2. OT/PT. 3. Dietary evaluation. 4. CBC and BMP in the morning. 5. Pain control. 6. Antibiotics per Infectious Disease. 7. We will continue to follow the patient. Chemo Dietrich D.O. DR: KAREN JOB#: [id number] CC:
--- NOTE | 2017-10-10 22:45 | Consultation ---
DATE OF CONSULTATION: 10/10/2017 NOTE: POOR AUDIO PSYCHOTHERAPY CONSULTATION PROGRESS NOTE CONSULTING PHYSICIAN: Farooq Miller M.D. TREATING ATTENDING PHYSICIAN: Chemo Dietrich D.O. HISTORY OF PRESENT ILLNESS: This patient is a 57-year-old male patient from [place], [place]. The patient was brought into the hospital as he underwent multiple laminectomies in the C-spine and L-spine. The patient had in a bathtub yesterday and he was unable to get bathtub and he has been having the low back pain. The patient has had some anxiety and depression as a result of medical condition and for these reasons, was referred for psychotherapeutic services . The patient at this time denies suicidal or homicidal thoughts of ideation. Denies any auditory or visual hallucinations. He states that he is anxious because of the pain that he experiences and possible slipping and falling again, however, he states that at this time, he feels less irritable and less anxious. He states that he does have a history of anxiety and possible depression. The patient was cooperative and admission. PAST MEDICAL HISTORY: The patient's past medical history at this time includes a history of hypokalemia, chronic pain, hyponatremia, polysubstance abuse, COPD, HIV, and hepatitis C. ALLERGIES: The patient has allergies to FISH, mainly SEAFOOD. SUBSTANCE ABUSE HISTORY: The patient has a history of polysubstance use, alcohol use, and marijuana use. PSYCHIATRIC HISTORY: The patient has a history of anxiety and depression, and has no history of medication in the past. SOCIAL HISTORY: The patient is a 57-year-old male patient who currently lives in [place], [place]. Financially sustained through [employer]. MENTAL STATUS EXAMINATION: The patient is alert and oriented to person, place, and time. Mood is anxious. Affect blunt. Thought process is disorganized. Thought content delusional. Poor attention and concentration. Poor insight, judgment, and impulse control. DIAGNOSIS: Generalized anxiety disorder and a lot of major depressive disorder, mild, recurrent, without psychotic features. This clinician assessed the patient. Provided the patient with reality orientation and supportive psychotherapy. anxiety. Continue behavioral management. This clinician has reviewed the patient's chart and discussed the treatment with treatment team. Farooq Miller PsyD. DR: NAYLA JOB#: [id number] CC: Chemo Dietrich D.O.
[2017-10-11] VITALS (8 sets, daily range): BP systolic 96–135; BP diastolic 55–68
[2017-10-11] MEDS: HYDROmorphone 1mg/ml Carpuject IVP PRN ×8 (01:02→23:04)
[2017-10-11] MEDS: CEFAZOLIN SOD IVPB SCH ×3 (05:39→21:33)
[2017-10-11] MEDS: D5W IVPB SCH ×3 (05:39→21:33)
[2017-10-11 06:38] LABS: BASOPHILS % (AUTO) 0.4 % (0.0-2.0); EOSINOPHILS % (AUTO) 3.9 % (0.0-3.0); HEMATOCRIT 30.8 % (42.0-52.0); HEMOGLOBIN 9.9 G/DL (14.2-18.0); MEAN CORPUSCULAR VOLUME 84 FL (80-99); MONOCYTES % (AUTO) 8.5 % (1.0-10.0); NEUTROPHILS % (AUTO) 53.2 % (45.0-75.0); PLATELET COUNT 214 K/UL (150-450); RED BLOOD COUNT 3.65 M/UL (4.70-6.10); RED CELL DISTRIBUTION WIDTH 13.9 % (11.6-14.8); WHITE BLOOD COUNT 7.2 K/UL (4.8-10.8)
[2017-10-11 06:58] LABS: ALANINE AMINOTRANSFERASE 18 U/L (12-78); ALBUMIN 2.6 G/DL (3.4-5.0); ALBUMIN/GLOBULIN RATIO 0.5 (1.0-2.7); ALKALINE PHOSPHATASE 103 U/L (46-116); ANION GAP 5 mmol/L (5-15); ASPARTATE AMINO TRANSFERASE 18 U/L (15-37); BILIRUBIN,TOTAL 0.3 MG/DL (0.2-1.0); BLOOD UREA NITROGEN 10 mg/dL (7-18); CALCIUM 9.2 MG/DL (8.5-10.1); CARBON DIOXIDE 28 MMOL/L (21-32); CHLORIDE 103 MMOL/L (98-107); CREATININE 0.6 MG/DL (0.55-1.30); PHOSPHORUS 3.4 MG/DL (2.5-4.9); POTASSIUM 3.7 MMOL/L (3.5-5.1); SODIUM 136 MMOL/L (136-145)
[2017-10-11] MEDS: Heparin 5000 units/ml inj SUBQ SCH ×2 (08:12→21:03)
--- NOTE | 2017-10-11 12:11 | Infectious Diseases Prog Note ---
Assessment/Plan Assessment/Plan Assessment: # Leukocytosis, SP- likely reactive -afebrile -u/a neg -CXR: no acute disease -Bcx NTD #Low back pain s/p fall -CT L spine: No acute fracture identified. Multilevel laminectomy performed recently. Moderate to severe degenerative disease of the lumbar spine as described above. Atherosclerotic vascular disease. #Recent MSSA bacteremia c/w empyema and severe Thoracic and Cervical OM/ Discitis and epidural abscess 09/25 SP Complete lumbar laminectomy at L2, L3, L4 and L5.. Decompression of the cauda equina. Resection of epidural calcified hypertrophied tissues. Partial diskectomy and biopsy at the level of L2-L3 because of suspected diskitis at that level. 09/20: SP 1-Anterior cervical discectomy complete at C3-4, C4-5, C5-6 bilateral foraminotomies 2-Decompression of the cervical spinal cord 3-Partial corpectomy at C3-4, C4-5, C5-6 , to allow placement of a large lordotic cages. Placement of a allograft lordotic cages x3 C3-4, C4-5, C5-6 5 Arthrodesis at C3 -4, C4-5, C5-6 6 Fluoroscopic guidance with interpretation of studies7 Microscope and microscopic dissection 09/18: bld cx: Negative 09/17: aerobic: neg, anaerobic: neg, fungal cx (sx): p 09/17: SP T8,9,10 laminectomy resection of epidural infected mass, epidural cultures , fixation of T9, T10 using pedicle screws by Dr. Alonzo OR findings: severe stenosis and sinal cord compression, epidural granulation tissue, no contreras pus noted 09/16: CXR: Mild diffuse bilateral hazy opacities. 09/15: blood cx: Coagulase Negative Staphylococcus .Growth in 1 of 2 blood culture bottles. bld cx (2nd set): neg 09/16: US Renal: No hydronephrosis or large renal stones. Small renal stones cannot be excluded on ultrasound. 09/17 : MRI C-spine: Impression: Inflammatory process at C5-C6 possibly due to discitis with pressure upon the anterior cord surface on the left severe narrowing of the right neural foramen by osteophytes. At C3-4 narrowing of the right neural foramen by bulging disc and osteophytes. 45 effacement of the anterior cord surface on the left by a 4 to 5 mm disc protrusion with endplate osteophytes. Bilateral foraminal narrowing. C6-7 narrowing of the entryway into the right neural foramen x 5 mm far right paracentral disc protrusion. There is some evidence of cord edema at the C3-C6 levels 09/17:CT Thoracic Spine WO Contrast: Redemonstration of severe discitis osteomyelitis at T9-10. 10/05 ESR 115, CRP 1.8 10/10 ESR 110, CRP 5.1 #Recent PsA UTI (+u hesitancy); s/p Rx -u/a +pyuria; 09/16: Ucx: >100,000 cfu/ml Gram Negative Rods-->>100,000 cfu/ml Pseudomonas aeruginosa hepatitis C HIV - previoulsy undetected for years off tx- now rising VL -09/16 HIV VL 52 > 10/05 600 COPD Plan: - cont. Ancef abx d# 43/56 for OM/epidural abscess -10/05 SP Oxacillin #42 - 09/25 SP po cipro abx d#7 for PsA UTI - 09/19 SP IV Cefepime d#2 -f/u cx -Monitor CBC/CMP, temperatures -wound care -PT/OT -f/u CD4 am -Will need to establish HIV care upon discharge Thank you for this consultation. Will continue to follow along with you. Discussed with RN. Subjective Allergies: Coded Allergies: FISH DERIVED (Verified Allergy, Unknown, 10/02/17) MAYONNAISE (Verified Allergy, Unknown, 10/02/17) Uncoded Allergies: seafood (Allergy, Unknown, 10/02/17) Subjective afebrile no leukocytosis Bcx NTD Objective Vital Signs Last 24 Hour Vital Signs Date Time Temp Pulse Resp B/P (MAP) Pulse Ox O2 Delivery O2 Flow Rate FiO2 10/11/17 11:40 97.9 78 20 117/68 (84) 95 97.9 10/11/17 10:36 98.6 10/11/17 08:19 Room Air 10/11/17 07:24 98.6 83 20 108/58 (75) 95 98.6 10/11/17 03:58 98.2 98 18 116/59 (78) 96 98.2 10/11/17 00:27 98.1 71 18 121/62 (81) 96 98.1 10/10/17 21:00 Room Air 10/10/17 19:47 99.1 110 18 117/65 (82) 98 99.1 10/10/17 16:00 98.4 92 18 100/67 (78) 96 98.4 Height (Feet): 5 Height (Inches): 5.00 Weight (Pounds): 150 Objective General Appearance: no apparent distress, alert EENT: PERRL/EOMI Neck: limited range of motion, tenderness Respiratory/Chest: lungs clear, normal breath sounds Abdomen: non tender, soft Extremities: non-tender Edema: no edema Neurologic: alert, oriented x 3 Skin: normal pigmentation Microbiology Date/Time Source Procedure Growth Status 10/09/17 17:00 Blood Blood Culture - Preliminary NO GROWTH AFTER 24 HOURS Resulted 10/09/17 16:45 Blood Blood Culture - Preliminary NO GROWTH AFTER 24 HOURS Resulted Laboratory Tests Test 10/11/17 05:25 White Blood Count Pending Red Blood Count 3.65 M/UL (4.70-6.10) L Hemoglobin 9.9 G/DL (14.2-18.0) L Hematocrit 30.8 % (42.0-52.0) L Mean Corpuscular Volume 84 FL (80-99) Mean Corpuscular Hemoglobin 27.3 PG (27.0-31.0) Mean Corpuscular Hemoglobin Concent 32.3 G/DL (32.0-36.0) Red Cell Distribution Width 13.9 % (11.6-14.8) Platelet Count 214 K/UL (150-450) Mean Platelet Volume 7.3 FL (6.5-10.1) Neutrophils (%) (Auto) 53.2 % (45.0-75.0) Lymphocytes (%) (Auto) 34.0 % (20.0-45.0) Monocytes (%) (Auto) 8.5 % (1.0-10.0) Eosinophils (%) (Auto) 3.9 % (0.0-3.0) H Basophils (%) (Auto) 0.4 % (0.0-2.0) Lymphocytes Pending Erythrocyte Sedimentation Rate 110 MM/HR (0-20) H Sodium Level 136 MMOL/L (136-145) Potassium Level 3.7 MMOL/L (3.5-5.1) Chloride Level 103 MMOL/L (98-107) Carbon Dioxide Level 28 MMOL/L (21-32) Anion Gap 5 mmol/L (5-15) Blood Urea Nitrogen 10 mg/dL (7-18) Creatinine 0.6 MG/DL (0.55-1.30) Estimat Glomerular Filtration Rate > 60 mL/min (>60) Glucose Level 98 MG/DL (74-106) Calcium Level 9.2 MG/DL (8.5-10.1) Phosphorus Level 3.4 MG/DL (2.5-4.9) Magnesium Level 1.6 MG/DL (1.8-2.4) L Total Bilirubin 0.3 MG/DL (0.2-1.0) Aspartate Amino Transf (AST/SGOT) 18 U/L (15-37) Alanine Aminotransferase (ALT/SGPT) 18 U/L (12-78) Alkaline Phosphatase 103 U/L (46-116) C-Reactive Protein, Quantitative 5.1 mg/dL (0.00-0.90) H Total Protein 7.5 G/DL (6.4-8.2) Albumin 2.6 G/DL (3.4-5.0) L Globulin 4.9 g/dL Albumin/Globulin Ratio 0.5 (1.0-2.7) L Percent CD3 Cells Pending Absolute CD3 Count Pending Percent CD4 Cells Pending Absolute CD4 Count Pending T-Lymphocyte CD4/CD8 Ratio Pending Percent CD8 Cells Pending Absolute CD8 Count Pending Current Medications Medications (Trade) Dose Ordered Sig/Veronica Route PRN Reason Start Time Stop Time Status Last Admin Dose Admin Acetaminophen (Tylenol) 650 mg Q4H PRN ORAL fever 10/09/17 19:45 11/08/17 19:44 Acetaminophen/ Hydrocodone Bitart ([place] 5/325) 1 tab Q4H PRN ORAL FOR MILD PAIN 10/09/17 20:02 10/16/17 20:01 Al Hydroxide/Mg Hydroxide (Mylanta II) 30 ml Q6H PRN ORAL dyspepsia 10/09/17 19:45 11/08/17 19:44 Cefazolin Sodium 2 gm/Dextrose 110 ml @ 220 mls/hr Q8H IVPB 10/10/17 14:30 10/17/17 14:29 10/11/17 05:39 Dextrose (Dextrose 50%) 25 ml PRN IV Hypoglycemia 10/09/17 20:15 11/08/17 20:14 Dextrose (Dextrose 50%) 50 ml PRN IV hypoglycemia 10/09/17 20:15 11/08/17 20:14 Gabapentin (Neurontin) 300 mg THREE TIMES A DAY ORAL 10/10/17 09:00 11/09/17 08:59 10/11/17 08:07 Heparin Sodium (Porcine) (Heparin 5000 units/ml) 5,000 units EVERY 12 HOURS SUBQ 10/09/17 21:00 11/08/17 20:59 10/11/17 08:12 Hydromorphone HCl (Dilaudid) 1 mg Q3H PRN IVP pain 7-10 10/09/17 19:45 10/16/17 19:44 10/11/17 10:36 Lorazepam (Ativan 2mg/ml 1ml) 0.5 mg Q4H PRN IV For Anxiety 10/09/17 19:45 10/16/17 19:44 Morphine Sulfate (Morphine Sulfate) 2 mg Q4H PRN IVP For Pain 4-6 10/09/17 19:45 10/16/17 19:44 Morphine Sulfate (Morphine Sulfate) 4 mg Q4H PRN IVP breakthrough pain 10/09/17 19:45 10/16/17 19:44 Ondansetron HCl (Zofran) 4 mg Q6H PRN IVP Nausea & Vomiting 10/09/17 19:45 11/08/17 19:44 Polyethylene Glycol (Miralax) 17 gm HSPRN PRN ORAL Constipation 10/09/17 19:45 11/08/17 19:44 Zolpidem Tartrate (Ambien) 5 mg HSPRN PRN ORAL Insomnia 10/09/17 19:45 10/16/17 19:44 Steph Crowder M.D. Oct 11, 2017 12:11
--- NOTE | 2017-10-11 14:47 | General Progress Note ---
Assessment/Plan Problem List: (1) Chronic pain ICD Codes: G89.29 - Other chronic pain SNOMED: 30722957 (2) HIV (human immunodeficiency virus infection) ICD Codes: B20 - Human immunodeficiency virus [HIV] disease SNOMED: 92539476 (3) COPD (chronic obstructive pulmonary disease) ICD Codes: J44.9 - Chronic obstructive pulmonary disease, unspecified SNOMED: 95330441 (4) Fall ICD Codes: W19.XXXA - Unspecified fall, initial encounter SNOMED: 3866072, 855286247 (5) Epidural abscess ICD Codes: G06.2 - Extradural and subdural abscess, unspecified SNOMED: 01694070 (6) Debility ICD Codes: R53.81 - Other malaise SNOMED: 49628580 Status: unchanged Assessment/Plan ot pt diet abx pain control cbc bmp am Subjective Constitutional: Reports: weakness Allergies: Coded Allergies: FISH DERIVED (Verified Allergy, Unknown, 10/02/17) MAYONNAISE (Verified Allergy, Unknown, 10/02/17) Uncoded Allergies: seafood (Allergy, Unknown, 10/02/17) All Systems: reviewed and negative except above Subjective sleepy calm in bed Objective Last 24 Hour Vital Signs Date Time Temp Pulse Resp B/P (MAP) Pulse Ox O2 Delivery O2 Flow Rate FiO2 10/11/17 11:40 97.9 78 20 117/68 (84) 95 97.9 10/11/17 10:36 98.6 10/11/17 08:19 Room Air 10/11/17 07:24 98.6 83 20 108/58 (75) 95 98.6 10/11/17 03:58 98.2 98 18 116/59 (78) 96 98.2 10/11/17 00:27 98.1 71 18 121/62 (81) 96 98.1 10/10/17 21:00 Room Air 10/10/17 19:47 99.1 110 18 117/65 (82) 98 99.1 10/10/17 16:00 98.4 92 18 100/67 (78) 96 98.4 Intake and Output 10/10/17 10/11/17 19:00 07:00 Intake Total 740 ml 220 ml Output Total 750 ml Balance 740 ml -530 ml Intake Oral 740 ml IV Total 220 ml Output Urine Total 750 ml # Voids 4 5 Laboratory Tests 10/11/17 05:25: White Blood Count [Pending], Red Blood Count 3.65L, Hemoglobin 9.9L, Hematocrit 30.8L, Mean Corpuscular Volume 84, Mean Corpuscular Hemoglobin 27.3, Mean Corpuscular Hemoglobin Concent 32.3, Red Cell Distribution Width 13.9, Platelet Count 214, Mean Platelet Volume 7.3, Neutrophils (%) (Auto) 53.2, Lymphocytes (% ) (Auto) 34.0, Monocytes (%) (Auto) 8.5, Eosinophils (%) (Auto) 3.9H, Basophils (%) (Auto) 0.4, Lymphocytes [Pending], Erythrocyte Sedimentation Rate 110H, Sodium Level 136, Potassium Level 3.7, Chloride Level 103, Carbon Dioxide Level 28, Anion Gap 5, Blood Urea Nitrogen 10, Creatinine 0.6, Estimat Glomerular Filtration Rate > 60, Glucose Level 98, Calcium Level 9.2, Phosphorus Level 3.4 , Magnesium Level 1.6L, Total Bilirubin 0.3, Aspartate Amino Transf (AST/SGOT) 18, Alanine Aminotransferase (ALT/SGPT) 18, Alkaline Phosphatase 103, C- Reactive Protein, Quantitative 5.1H, Total Protein 7.5, Albumin 2.6L, Globulin 4.9, Albumin/Globulin Ratio 0.5L, Percent CD3 Cells [Pending], Absolute CD3 Count [Pending], Percent CD4 Cells [Pending], Absolute CD4 Count [Pending], T- Lymphocyte CD4/CD8 Ratio [Pending], Percent CD8 Cells [Pending], Absolute CD8 Count [Pending] Height (Feet): 5 Height (Inches): 5.00 Weight (Pounds): 150 General Appearance: lethargic EENT: normal ENT inspection Neck: normal alignment Cardiovascular: normal peripheral pulses, normal rate, regular rhythm Respiratory/Chest: chest wall non-tender, lungs clear, normal breath sounds Abdomen: normal bowel sounds, non tender, soft Extremities: normal inspection Edema: no edema noted Arm (L), no edema noted Arm (R), no edema noted Leg (L), no edema noted Leg (R), no edema noted Pedal (L), no edema noted Pedal (R), no edema noted Generalized Neurologic: motor weakness Skin: normal pigmentation, warm/dry Dietrich,Chemo [place] Oct 11, 2017 14:47
--- NOTE | 2017-10-11 17:59 | General Progress Note ---
Assessment/Plan Assessment/Plan (1) Lumbar Spondylosis (2) S/p Lumbar surgery (3) Cervical spinal stenosis (4) S/p Cervical surgery (5) H/o T9-10 discitis/osteomyelitis with epidural abscess (6) S/p Thoracic surgery (7) Lumbar sprain s/p fall We will continue the Morphine, Dilaudid and [place]. D/w Dr. Stevens and he concurred. Subjective Date patient seen: Oct 11, 2017 Time patient seen: 05:30 - pm Allergies: Coded Allergies: FISH DERIVED (Verified Allergy, Unknown, 10/02/17) MAYONNAISE (Verified Allergy, Unknown, 10/02/17) Uncoded Allergies: seafood (Allergy, Unknown, 10/02/17) Subjective REVIEW OF SYSTEMS: Denies rash, fever, chills, sweating, dizziness, drowsiness, blurred vision, sore throat, or change in weight. No nausea, vomiting, diarrhea, or blood in the stool or urine. He is complaining of neck and back pain. SUBJECTIVE: Patient is in bed showing no signs of pain or distress. pain has been tolerable and has no new complaints . Objective Last 24 Hour Vital Signs Date Time Temp Pulse Resp B/P (MAP) Pulse Ox O2 Delivery O2 Flow Rate FiO2 10/11/17 15:53 97.6 82 20 121/55 (77) 97 97.6 10/11/17 11:40 97.9 78 20 117/68 (84) 95 97.9 10/11/17 10:36 98.6 10/11/17 08:19 Room Air 10/11/17 07:24 98.6 83 20 108/58 (75) 95 98.6 10/11/17 03:58 98.2 98 18 116/59 (78) 96 98.2 10/11/17 00:27 98.1 71 18 121/62 (81) 96 98.1 10/10/17 21:00 Room Air 10/10/17 19:47 99.1 110 18 117/65 (82) 98 99.1 Intake and Output 10/10/17 10/11/17 19:00 07:00 Intake Total 740 ml 220 ml Output Total 750 ml Balance 740 ml -530 ml Intake Oral 740 ml IV Total 220 ml Output Urine Total 750 ml # Voids 4 5 Laboratory Tests 10/11/17 05:25: White Blood Count [Pending], Red Blood Count 3.65L, Hemoglobin 9.9L, Hematocrit 30.8L, Mean Corpuscular Volume 84, Mean Corpuscular Hemoglobin 27.3, Mean Corpuscular Hemoglobin Concent 32.3, Red Cell Distribution Width 13.9, Platelet Count 214, Mean Platelet Volume 7.3, Neutrophils (%) (Auto) 53.2, Lymphocytes (% ) (Auto) 34.0, Monocytes (%) (Auto) 8.5, Eosinophils (%) (Auto) 3.9H, Basophils (%) (Auto) 0.4, Lymphocytes [Pending], Erythrocyte Sedimentation Rate 110H, Sodium Level 136, Potassium Level 3.7, Chloride Level 103, Carbon Dioxide Level 28, Anion Gap 5, Blood Urea Nitrogen 10, Creatinine 0.6, Estimat Glomerular Filtration Rate > 60, Glucose Level 98, Calcium Level 9.2, Phosphorus Level 3.4 , Magnesium Level 1.6L, Total Bilirubin 0.3, Aspartate Amino Transf (AST/SGOT) 18, Alanine Aminotransferase (ALT/SGPT) 18, Alkaline Phosphatase 103, C- Reactive Protein, Quantitative 5.1H, Total Protein 7.5, Albumin 2.6L, Globulin 4.9, Albumin/Globulin Ratio 0.5L, Percent CD3 Cells [Pending], Absolute CD3 Count [Pending], Percent CD4 Cells [Pending], Absolute CD4 Count [Pending], T- Lymphocyte CD4/CD8 Ratio [Pending], Percent CD8 Cells [Pending], Absolute CD8 Count [Pending] Height (Feet): 5 Height (Inches): 5.00 Weight (Pounds): 150 Objective General Appearance: no apparent distress, alert EENT: PERRL/EOMI Neck: limited range of motion, tenderness Respiratory/Chest: lungs clear, normal breath sounds Abdomen: non tender, soft Extremities: non-tender Edema: no edema noted Arm (L), no edema noted Arm (R), no edema noted Leg (L), no edema noted Leg (R), no edema noted Pedal (L), no edema noted Pedal (R), no edema noted Generalized Neurologic: alert, oriented x 3 Skin: normal pigmentation Mark Rausch Oct 11, 2017 17:59
[2017-10-12 00:33] VITALS: BP 105/60
[2017-10-12] MEDS: HYDROmorphone 1mg/ml Carpuject IVP PRN ×4 (02:01→11:22)
[2017-10-12] MEDS ORDERED: LORazepam 1mg tab ORAL PRN (04:00)
[2017-10-12 04:43] VITALS: BP 100/63
[2017-10-12] MEDS: D5W IVPB SCH ×2 (05:52→14:30)
[2017-10-12] MEDS: CEFAZOLIN SOD IVPB SCH ×2 (05:52→14:30)
[2017-10-12 07:00] LABS: EOSINOPHILS % (AUTO) 7.3 % (0.0-3.0); HEMATOCRIT 30.5 % (42.0-52.0); HEMOGLOBIN 10.2 G/DL (14.2-18.0); LYMPHOCYTES % (AUTO) 42.5 % (20.0-45.0); MEAN CORPUSCULAR VOLUME 84 FL (80-99); MONOCYTES % (AUTO) 9.2 % (1.0-10.0); PLATELET COUNT 182 K/UL (150-450); RED BLOOD COUNT 3.62 M/UL (4.70-6.10); WHITE BLOOD COUNT 5.3 K/UL (4.8-10.8)
[2017-10-12 07:18] LABS: ANION GAP 6 mmol/L (5-15); BLOOD UREA NITROGEN 7 mg/dL (7-18); CALCIUM 9.7 MG/DL (8.5-10.1); CARBON DIOXIDE 28 MMOL/L (21-32); CHLORIDE 103 MMOL/L (98-107); CREATININE 0.5 MG/DL (0.55-1.30); POTASSIUM 4.3 MMOL/L (3.5-5.1); SODIUM 137 MMOL/L (136-145)
[2017-10-12 07:44] VITALS: BP 102/57
--- NOTE | 2017-10-12 08:57 | General Progress Note ---
Assessment/Plan Assessment/Plan (1) Lumbar Spondylosis (2) S/p Lumbar surgery (3) Cervical spinal stenosis (4) S/p Cervical surgery (5) H/o T9-10 discitis/osteomyelitis with epidural abscess (6) S/p Thoracic surgery (7) Lumbar sprain s/p fall We will continue the Morphine, Dilaudid and [place]. Parameters will be set to HOLD OPIOIDS FOR OVERSEDATION OR SBP<90 OR DBP<60 OR O2 SAT <92% OR RR <12 An RX for [place] 10/325mg 30 tabs was sent to patients pharmacy of choice. D/w Dr. Stevens and he concurred. Subjective Date patient seen: Oct 12, 2017 Time patient seen: 08:15 - am Allergies: Coded Allergies: FISH DERIVED (Verified Allergy, Unknown, 10/02/17) MAYONNAISE (Verified Allergy, Unknown, 10/02/17) Uncoded Allergies: seafood (Allergy, Unknown, 10/02/17) Subjective REVIEW OF SYSTEMS: Denies rash, fever, chills, sweating, dizziness, drowsiness, blurred vision, sore throat, or change in weight. No nausea, vomiting, diarrhea, or blood in the stool or urine. He is complaining of neck and back pain. SUBJECTIVE: Patient laying in bed and reports that his pain has bee tolerated reduced on the [place] and Dilaudid. He has no new complaints. Objective Last 24 Hour Vital Signs Date Time Temp Pulse Resp B/P (MAP) Pulse Ox O2 Delivery O2 Flow Rate FiO2 10/12/17 07:44 97.7 87 18 102/57 (72) 96 97.7 10/12/17 05:32 98.1 10/12/17 05:02 98.1 10/12/17 04:43 98.1 68 17 100/63 (75) 95 98.1 10/12/17 02:01 97.5 10/12/17 00:33 17 95 10/12/17 00:33 97.5 75 105/60 (75) 97.5 10/11/17 23:06 90 135/55 (81) 10/11/17 23:04 98.1 10/11/17 21:38 82 99/62 (74) 10/11/17 20:01 98.1 10/11/17 20:00 Room Air 10/11/17 19:41 98.1 79 17 96/61 (73) 97 98.1 10/11/17 15:53 97.6 82 20 121/55 (77) 97 97.6 10/11/17 11:40 97.9 78 20 117/68 (84) 95 97.9 10/11/17 10:36 98.6 Intake and Output 10/11/17 10/12/17 19:00 07:00 Intake Total 910 ml 350 ml Balance 910 ml 350 ml Intake Oral 600 ml 240 ml IV Total 310 ml 110 ml # Voids 3 Laboratory Tests 10/12/17 05:30: White Blood Count 5.3, Red Blood Count 3.62L, Hemoglobin 10.2L, Hematocrit 30.5L , Mean Corpuscular Volume 84, Mean Corpuscular Hemoglobin 28.2, Mean Corpuscular Hemoglobin Concent 33.5, Red Cell Distribution Width 14.0, Platelet Count 182, Mean Platelet Volume 7.3, Neutrophils (%) (Auto) 40.0L, Lymphocytes ( %) (Auto) 42.5, Monocytes (%) (Auto) 9.2, Eosinophils (%) (Auto) 7.3H, Basophils (%) (Auto) 1.0, Sodium Level 137, Potassium Level 4.3, Chloride Level 103, Carbon Dioxide Level 28, Anion Gap 6, Blood Urea Nitrogen 7, Creatinine 0.5L, Estimat Glomerular Filtration Rate > 60, Glucose Level 99, Calcium Level 9.7 Height (Feet): 5 Height (Inches): 5.00 Weight (Pounds): 150 Objective General Appearance: no apparent distress, alert EENT: PERRL/EOMI Neck: limited range of motion, tenderness Respiratory/Chest: lungs clear, normal breath sounds Abdomen: non tender, soft Extremities: non-tender Edema: no edema noted Arm (L), no edema noted Arm (R), no edema noted Leg (L), no edema noted Leg (R), no edema noted Pedal (L), no edema noted Pedal (R), no edema noted Generalized Neurologic: alert, oriented x 3 Skin: normal pigmentation Mark Rausch Oct 12, 2017 08:57
[2017-10-12] MEDS: Heparin 5000 units/ml inj SUBQ SCH (09:13)
[2017-10-12 11:28] VITALS: BP 126/65
[2017-10-12] MEDS ORDERED: DULoxetine 30mg cap ORAL SCH (12:06)
--- NOTE | 2017-10-12 13:30 | Pulmonology Progress Note ---
Assessment/Plan Problems: (1) Debility (2) Epidural abscess (3) COPD (chronic obstructive pulmonary disease) (4) Osteomyelitis (5) Hepatitis C (6) HIV (human immunodeficiency virus infection) Assessment/Plan doing better still wants to go home IV abx pt/ot check wbc dc home today Subjective ROS Limited/Unobtainable: No Constitutional: Reports: no symptoms HEENT: Repors: no symptoms Allergies: Coded Allergies: FISH DERIVED (Verified Allergy, Unknown, 10/02/17) MAYONNAISE (Verified Allergy, Unknown, 10/02/17) Uncoded Allergies: seafood (Allergy, Unknown, 10/02/17) Objective Last 24 Hour Vital Signs Date Time Temp Pulse Resp B/P (MAP) Pulse Ox O2 Delivery O2 Flow Rate FiO2 10/12/17 11:28 97.6 78 20 126/65 (85) 97 97.6 10/12/17 09:00 Room Air 10/12/17 07:44 97.7 87 18 102/57 (72) 96 97.7 10/12/17 05:32 98.1 10/12/17 05:02 98.1 10/12/17 04:43 98.1 68 17 100/63 (75) 95 98.1 10/12/17 02:01 97.5 10/12/17 00:33 17 95 10/12/17 00:33 97.5 75 105/60 (75) 97.5 10/11/17 23:06 90 135/55 (81) 10/11/17 23:04 98.1 10/11/17 21:38 82 99/62 (74) 10/11/17 20:01 98.1 10/11/17 20:00 Room Air 10/11/17 19:41 98.1 79 17 96/61 (73) 97 98.1 10/11/17 15:53 97.6 82 20 121/55 (77) 97 97.6 Intake and Output 10/11/17 10/12/17 19:00 07:00 Intake Total 910 ml 350 ml Balance 910 ml 350 ml Intake Oral 600 ml 240 ml IV Total 310 ml 110 ml # Voids 3 General Appearance: WD/WN HEENT: normocephalic, atraumatic Respiratory/Chest: chest wall non-tender, lungs clear Cardiovascular: normal rate Abdomen: normal bowel sounds, soft, non tender Genitourinary: normal external genitalia Skin: no rash, no ulcers Neurologic/Psychiatric: abnormal gait Microbiology Date/Time Source Procedure Growth Status 10/09/17 17:00 Blood Blood Culture - Preliminary NO GROWTH AFTER 48 HOURS Resulted 10/09/17 16:45 Blood Blood Culture - Preliminary NO GROWTH AFTER 48 HOURS Resulted 10/09/17 20:55 Nasal Nares MRSA Culture - Final NO METHICILLIN RESISTANT STAPH AUREUS... Complete Laboratory Tests 10/12/17 05:30: White Blood Count 5.3, Red Blood Count 3.62L, Hemoglobin 10.2L, Hematocrit 30.5L , Mean Corpuscular Volume 84, Mean Corpuscular Hemoglobin 28.2, Mean Corpuscular Hemoglobin Concent 33.5, Red Cell Distribution Width 14.0, Platelet Count 182, Mean Platelet Volume 7.3, Neutrophils (%) (Auto) 40.0L, Lymphocytes ( %) (Auto) 42.5, Monocytes (%) (Auto) 9.2, Eosinophils (%) (Auto) 7.3H, Basophils (%) (Auto) 1.0, Sodium Level 137, Potassium Level 4.3, Chloride Level 103, Carbon Dioxide Level 28, Anion Gap 6, Blood Urea Nitrogen 7, Creatinine 0.5L, Estimat Glomerular Filtration Rate > 60, Glucose Level 99, Calcium Level 9.7 Current Medications Medications (Trade) Dose Ordered Sig/Veronica Route PRN Reason Start Time Stop Time Status Last Admin Dose Admin Acetaminophen (Tylenol) 650 mg Q4H PRN ORAL fever 10/09/17 19:45 11/08/17 19:44 Acetaminophen/ Hydrocodone Bitart ([place] 5/325) 1 tab Q4H PRN ORAL FOR MILD PAIN 10/09/17 20:02 10/16/17 20:01 Al Hydroxide/Mg Hydroxide (Mylanta II) 30 ml Q6H PRN ORAL dyspepsia 10/09/17 19:45 11/08/17 19:44 Cefazolin Sodium 2 gm/Dextrose 110 ml @ 220 mls/hr Q8H IVPB 10/10/17 14:30 10/17/17 14:29 10/12/17 05:52 Dextrose (Dextrose 50%) 25 ml PRN IV Hypoglycemia 10/09/17 20:15 11/08/17 20:14 Dextrose (Dextrose 50%) 50 ml PRN IV hypoglycemia 10/09/17 20:15 11/08/17 20:14 Duloxetine HCl (Cymbalta) 30 mg DAILY ORAL 10/12/17 12:06 11/11/17 12:05 10/12/17 13:20 Gabapentin (Neurontin) 300 mg THREE TIMES A DAY ORAL 10/10/17 09:00 11/09/17 08:59 10/12/17 13:20 Heparin Sodium (Porcine) (Heparin 5000 units/ml) 5,000 units EVERY 12 HOURS SUBQ 10/09/17 21:00 11/08/17 20:59 10/12/17 09:13 Hydromorphone HCl (Dilaudid) 1 mg Q3H PRN IVP pain 7-10 10/09/17 19:45 10/16/17 19:44 10/12/17 11:22 Lorazepam (Ativan 2mg/ml 1ml) 0.5 mg Q4H PRN IV For Anxiety 10/09/17 19:45 10/16/17 19:44 Lorazepam (Ativan) 1 mg Q6H PRN ORAL For Anxiety 10/12/17 04:00 10/19/17 03:59 Morphine Sulfate (Morphine Sulfate) 2 mg Q4H PRN IVP For Pain 4-6 10/09/17 19:45 10/16/17 19:44 Morphine Sulfate (Morphine Sulfate) 4 mg Q4H PRN IVP breakthrough pain 10/09/17 19:45 10/16/17 19:44 Ondansetron HCl (Zofran) 4 mg Q6H PRN IVP Nausea & Vomiting 10/09/17 19:45 11/08/17 19:44 Polyethylene Glycol (Miralax) 17 gm HSPRN PRN ORAL Constipation 10/09/17 19:45 11/08/17 19:44 10/12/17 09:17 Zolpidem Tartrate (Ambien) 5 mg HSPRN PRN ORAL Insomnia 10/09/17 19:45 10/16/17 19:44 Sally Cox MD Oct 12, 2017 13:30
--- NOTE | 2017-10-12 13:30 | Pulmonology Progress Note ---
Assessment/Plan Problems: (1) Debility (2) Epidural abscess (3) COPD (chronic obstructive pulmonary disease) (4) Osteomyelitis (5) Hepatitis C (6) HIV (human immunodeficiency virus infection) Assessment/Plan doing better still wants to go home IV abx pt/ot check wbc check H/H Subjective ROS Limited/Unobtainable: No Interval Events: late note for 10/11 Allergies: Coded Allergies: FISH DERIVED (Verified Allergy, Unknown, 10/02/17) MAYONNAISE (Verified Allergy, Unknown, 10/02/17) Uncoded Allergies: seafood (Allergy, Unknown, 10/02/17) Objective Last 24 Hour Vital Signs Date Time Temp Pulse Resp B/P (MAP) Pulse Ox O2 Delivery O2 Flow Rate FiO2 10/12/17 11:28 97.6 78 20 126/65 (85) 97 97.6 10/12/17 09:00 Room Air 10/12/17 07:44 97.7 87 18 102/57 (72) 96 97.7 10/12/17 05:32 98.1 10/12/17 05:02 98.1 10/12/17 04:43 98.1 68 17 100/63 (75) 95 98.1 10/12/17 02:01 97.5 10/12/17 00:33 17 95 10/12/17 00:33 97.5 75 105/60 (75) 97.5 10/11/17 23:06 90 135/55 (81) 10/11/17 23:04 98.1 10/11/17 21:38 82 99/62 (74) 10/11/17 20:01 98.1 10/11/17 20:00 Room Air 10/11/17 19:41 98.1 79 17 96/61 (73) 97 98.1 10/11/17 15:53 97.6 82 20 121/55 (77) 97 97.6 Intake and Output 10/11/17 10/12/17 19:00 07:00 Intake Total 910 ml 350 ml Balance 910 ml 350 ml Intake Oral 600 ml 240 ml IV Total 310 ml 110 ml # Voids 3 General Appearance: WD/WN, no acute distress HEENT: normocephalic Respiratory/Chest: chest wall non-tender, lungs clear Cardiovascular: normal peripheral pulses, regular rhythm Abdomen: normal bowel sounds, soft, non tender 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 Complete Laboratory Tests 10/12/17 05:30: White Blood Count 5.3, Red Blood Count 3.62L, Hemoglobin 10.2L, Hematocrit 30.5L , Mean Corpuscular Volume 84, Mean Corpuscular Hemoglobin 28.2, Mean Corpuscular Hemoglobin Concent 33.5, Red Cell Distribution Width 14.0, Platelet Count 182, Mean Platelet Volume 7.3, Neutrophils (%) (Auto) 40.0L, Lymphocytes ( %) (Auto) 42.5, Monocytes (%) (Auto) 9.2, Eosinophils (%) (Auto) 7.3H, Basophils (%) (Auto) 1.0, Sodium Level 137, Potassium Level 4.3, Chloride Level 103, Carbon Dioxide Level 28, Anion Gap 6, Blood Urea Nitrogen 7, Creatinine 0.5L, Estimat Glomerular Filtration Rate > 60, Glucose Level 99, Calcium Level 9.7 Current Medications Medications (Trade) Dose Ordered Sig/Veronica Route PRN Reason Start Time Stop Time Status Last Admin Dose Admin Acetaminophen (Tylenol) 650 mg Q4H PRN ORAL fever 10/09/17 19:45 11/08/17 19:44 Acetaminophen/ Hydrocodone Bitart ([place] 5/325) 1 tab Q4H PRN ORAL FOR MILD PAIN 10/09/17 20:02 10/16/17 20:01 Al Hydroxide/Mg Hydroxide (Mylanta II) 30 ml Q6H PRN ORAL dyspepsia 10/09/17 19:45 11/08/17 19:44 Cefazolin Sodium 2 gm/Dextrose 110 ml @ 220 mls/hr Q8H IVPB 10/10/17 14:30 10/17/17 14:29 10/12/17 05:52 Dextrose (Dextrose 50%) 25 ml PRN IV Hypoglycemia 10/09/17 20:15 11/08/17 20:14 Dextrose (Dextrose 50%) 50 ml PRN IV hypoglycemia 10/09/17 20:15 11/08/17 20:14 Duloxetine HCl (Cymbalta) 30 mg DAILY ORAL 10/12/17 12:06 11/11/17 12:05 10/12/17 13:20 Gabapentin (Neurontin) 300 mg THREE TIMES A DAY ORAL 10/10/17 09:00 11/09/17 08:59 10/12/17 13:20 Heparin Sodium (Porcine) (Heparin 5000 units/ml) 5,000 units EVERY 12 HOURS SUBQ 10/09/17 21:00 11/08/17 20:59 10/12/17 09:13 Hydromorphone HCl (Dilaudid) 1 mg Q3H PRN IVP pain 7-10 10/09/17 19:45 10/16/17 19:44 10/12/17 11:22 Lorazepam (Ativan 2mg/ml 1ml) 0.5 mg Q4H PRN IV For Anxiety 10/09/17 19:45 10/16/17 19:44 Lorazepam (Ativan) 1 mg Q6H PRN ORAL For Anxiety 10/12/17 04:00 10/19/17 03:59 Morphine Sulfate (Morphine Sulfate) 2 mg Q4H PRN IVP For Pain 4-6 10/09/17 19:45 10/16/17 19:44 Morphine Sulfate (Morphine Sulfate) 4 mg Q4H PRN IVP breakthrough pain 10/09/17 19:45 10/16/17 19:44 Ondansetron HCl (Zofran) 4 mg Q6H PRN IVP Nausea & Vomiting 10/09/17 19:45 11/08/17 19:44 Polyethylene Glycol (Miralax) 17 gm HSPRN PRN ORAL Constipation 10/09/17 19:45 11/08/17 19:44 10/12/17 09:17 Zolpidem Tartrate (Ambien) 5 mg HSPRN PRN ORAL Insomnia 10/09/17 19:45 10/16/17 19:44 Sally Cox MD Oct 12, 2017 13:30
--- NOTE | 2017-10-12 13:40 | General Progress Note ---
Assessment/Plan Problem List: (1) Chronic pain ICD Codes: G89.29 - Other chronic pain SNOMED: 61897373 (2) HIV (human immunodeficiency virus infection) ICD Codes: B20 - Human immunodeficiency virus [HIV] disease SNOMED: 64318503 (3) COPD (chronic obstructive pulmonary disease) ICD Codes: J44.9 - Chronic obstructive pulmonary disease, unspecified SNOMED: 13337552 (4) Fall ICD Codes: W19.XXXA - Unspecified fall, initial encounter SNOMED: 8246252, 453001178 (5) Epidural abscess ICD Codes: G06.2 - Extradural and subdural abscess, unspecified SNOMED: 13646031 (6) Debility ICD Codes: R53.81 - Other malaise SNOMED: 30325994 Assessment/Plan ot pt diet abx pain control cbc bmp am Subjective Constitutional: Reports: weakness Allergies: Coded Allergies: FISH DERIVED (Verified Allergy, Unknown, 10/02/17) MAYONNAISE (Verified Allergy, Unknown, 10/02/17) Uncoded Allergies: seafood (Allergy, Unknown, 10/02/17) All Systems: reviewed and negative except above Subjective calm in bedv wants to go home Objective Last 24 Hour Vital Signs Date Time Temp Pulse Resp B/P (MAP) Pulse Ox O2 Delivery O2 Flow Rate FiO2 10/12/17 11:28 97.6 78 20 126/65 (85) 97 97.6 10/12/17 09:00 Room Air 10/12/17 07:44 97.7 87 18 102/57 (72) 96 97.7 10/12/17 05:32 98.1 10/12/17 05:02 98.1 10/12/17 04:43 98.1 68 17 100/63 (75) 95 98.1 10/12/17 02:01 97.5 10/12/17 00:33 17 95 10/12/17 00:33 97.5 75 105/60 (75) 97.5 10/11/17 23:06 90 135/55 (81) 10/11/17 23:04 98.1 10/11/17 21:38 82 99/62 (74) 10/11/17 20:01 98.1 10/11/17 20:00 Room Air 10/11/17 19:41 98.1 79 17 96/61 (73) 97 98.1 10/11/17 15:53 97.6 82 20 121/55 (77) 97 97.6 Intake and Output 10/11/17 10/12/17 19:00 07:00 Intake Total 910 ml 350 ml Balance 910 ml 350 ml Intake Oral 600 ml 240 ml IV Total 310 ml 110 ml # Voids 3 Laboratory Tests 10/12/17 05:30: White Blood Count 5.3, Red Blood Count 3.62L, Hemoglobin 10.2L, Hematocrit 30.5L , Mean Corpuscular Volume 84, Mean Corpuscular Hemoglobin 28.2, Mean Corpuscular Hemoglobin Concent 33.5, Red Cell Distribution Width 14.0, Platelet Count 182, Mean Platelet Volume 7.3, Neutrophils (%) (Auto) 40.0L, Lymphocytes ( %) (Auto) 42.5, Monocytes (%) (Auto) 9.2, Eosinophils (%) (Auto) 7.3H, Basophils (%) (Auto) 1.0, Sodium Level 137, Potassium Level 4.3, Chloride Level 103, Carbon Dioxide Level 28, Anion Gap 6, Blood Urea Nitrogen 7, Creatinine 0.5L, Estimat Glomerular Filtration Rate > 60, Glucose Level 99, Calcium Level 9.7 Height (Feet): 5 Height (Inches): 5.00 Weight (Pounds): 150 Chemo Dietrich DO Oct 12, 2017 13:40
--- NOTE | 2017-10-12 14:15 | Consultation ---
DATE OF CONSULTATION: 10/12/2017 INITIAL PSYCHIATRIC CONSULTATION CONSULTING PHYSICIAN: Gudelia Villa M.D. REQUESTING PHYSICIAN: Chemo Dietrich D.O. HISTORY OF PRESENT ILLNESS: This is a 57-year-old male patient, status post fall, but this patient since he came into the hospital is complaining of a lot of pain and anxiety. He stated he fell at home and since that time, he has been having a lot of problems with movements and stated he was unable to get up, several hours in bed, weakness caused him increasing amount of anxiety and depression secondary to problems with pain and limited movement, so for that reason, daily psychiatric consultation has been requested to see this patient daily throughout his hospital course. I saw and assessed the patient at bedside. He is expressing a lot of anxiety and depression because of the chronic pain that he is having and he states he has feelings of helplessness and hopelessness, but he denies any current suicidal or homicidal thoughts. Denies auditory or visual hallucinations or delusions. MEDICAL HISTORY: HIV, COPD, epidural abscess, and chronic lower back pain secondary to status post fall. ALLERGIES: He has no known drug allergies at this time. SUBSTANCE ABUSE HISTORY: He has history of polysubstance abuse including opiates and cocaine. That is all what he revealed to me in the interview. SOCIAL HISTORY: This patient is financially supported by [employer] and Medicare. He lives in [place], [place]. PSYCHIATRIC HISTORY: He has previous history of anxiety and depression. PAIN ASSESSMENT: 04/21 pain. DEVELOPMENTAL PROBLEMS: Denies. FAMILY PSYCHIATRIC HISTORY: Denies. STRENGTHS: He is motivated to get better. He has a place to live. WEAKNESSES: He is impulsive. No support system. MENTAL STATUS EXAMINATION: This is a 57-year-old male patient. Appearance is disheveled. Attitude, irritable and agitated. Affect, guarded and restricted. Intellect poor. Mood, depressed and anxious. Motor activity, psychomotor agitation. Attention span is poor. Orientation x2. Speech is pressured. Thought process, disorganized and illogical. Thought content, auditory hallucinations and paranoid delusions. Insight and judgment is poor. Short-term memory, 3/3 word recall after 5-minute delay with good short-term memory. Long-term memory is intact based on his knowledge of long-term events in his life such as high school that he went to. Insight and judgment is poor. DIAGNOSES: Major depressive disorder, mild, recurrent, without psychotic features. Medical problems include chronic back pain, hepatitis, HIV, COPD. Psychosocial stressors is low social support structure. Financial stressors. PLAN: I am going to treat this patient with Cymbalta 30 mg daily and the reason why I am treating him with that is to in addition to reducing his depression and anxiety, I am also providing pain prophylaxis and also reduce anxiety, but in addition to that, I am also going to continue this patient on a medication regimen of Neurontin 300 mg three times a day for anxiety and pain prophylaxis, and also Ativan 1 every 6 hours p.r.n. anxiety. Once his IV oral Ativan and also 20 minutes of cognitive behavioral therapy was provided today. Twenty minutes of cognitive behavioral therapy including a cognitive behavioral therapy session. We identified his automatic negative thoughts triggered by outside stimuli and teaching techniques to convert those all negative thoughts to more positive thinking, and this is a 20-minute cognitive behavioral therapy session. Chart reviewed. Discussed with staff. I would like to thank Dr. Chemo Dietrich for this interesting consultation. I will be happy to follow this patient with you throughout his hospital course. Chart reviewed. Discussed with staff and the patient was seen and assessed at bedside. Seen and assessed in his room. Gudelia Villa M.D. : Gene JOB#: [id number] CC:
[2017-10-12 16:00] VITALS: BP 130/72
[2017-10-12] MEDS ORDERED: NS 275ml ONE (16:59)
--- NOTE | 2017-10-12 17:44 | Infectious Diseases Prog Note ---
Assessment/Plan Assessment/Plan Assessment: # Leukocytosis, SP- likely reactive -afebrile -u/a neg -CXR: no acute disease -Bcx NTD #Low back pain s/p fall -CT L spine: No acute fracture identified. Multilevel laminectomy performed recently. Moderate to severe degenerative disease of the lumbar spine as described above. Atherosclerotic vascular disease. #Recent MSSA bacteremia c/w empyema and severe Thoracic and Cervical OM/ Discitis and epidural abscess 09/25 SP Complete lumbar laminectomy at L2, L3, L4 and L5.. Decompression of the cauda equina. Resection of epidural calcified hypertrophied tissues. Partial diskectomy and biopsy at the level of L2-L3 because of suspected diskitis at that level. 09/20: SP 1-Anterior cervical discectomy complete at C3-4, C4-5, C5-6 bilateral foraminotomies 2-Decompression of the cervical spinal cord 3-Partial corpectomy at C3-4, C4-5, C5-6 , to allow placement of a large lordotic cages. Placement of a allograft lordotic cages x3 C3-4, C4-5, C5-6 5 Arthrodesis at C3 -4, C4-5, C5-6 6 Fluoroscopic guidance with interpretation of studies7 Microscope and microscopic dissection 09/18: bld cx: Negative 09/17: aerobic: neg, anaerobic: neg, fungal cx (sx): p 09/17: SP T8,9,10 laminectomy resection of epidural infected mass, epidural cultures , fixation of T9, T10 using pedicle screws by Dr. Alonzo OR findings: severe stenosis and sinal cord compression, epidural granulation tissue, no contreras pus noted 09/16: CXR: Mild diffuse bilateral hazy opacities. 09/15: blood cx: Coagulase Negative Staphylococcus .Growth in 1 of 2 blood culture bottles. bld cx (2nd set): neg 09/16: US Renal: No hydronephrosis or large renal stones. Small renal stones cannot be excluded on ultrasound. 09/17 : MRI C-spine: Impression: Inflammatory process at C5-C6 possibly due to discitis with pressure upon the anterior cord surface on the left severe narrowing of the right neural foramen by osteophytes. At C3-4 narrowing of the right neural foramen by bulging disc and osteophytes. 45 effacement of the anterior cord surface on the left by a 4 to 5 mm disc protrusion with endplate osteophytes. Bilateral foraminal narrowing. C6-7 narrowing of the entryway into the right neural foramen x 5 mm far right paracentral disc protrusion. There is some evidence of cord edema at the C3-C6 levels 09/17:CT Thoracic Spine WO Contrast: Redemonstration of severe discitis osteomyelitis at T9-10. 10/05 ESR 115, CRP 1.8 10/10 ESR 110, CRP 5.1 #Recent PsA UTI (+u hesitancy); s/p Rx -u/a +pyuria; 09/16: Ucx: >100,000 cfu/ml Gram Negative Rods-->>100,000 cfu/ml Pseudomonas aeruginosa hepatitis C HIV - previoulsy undetected for years off tx- now rising VL -09/16 HIV VL 52 > 10/05 600 -10/12 CD4 880 COPD Plan: - cont. Ancef abx d# 44/56 for OM/epidural abscess -ok to discharge from ID stand point; please make sure home health is appropriately set up as last time patient did not got antibiotic administered as no nurse came to house per patient -10/05 SP Oxacillin #42 - 09/25 SP po cipro abx d#7/ for PsA UTI - 09/19 SP IV Cefepime d#2 -f/u cx -Monitor CBC/CMP, temperatures -wound care -PT/OT -Will need to establish HIV care upon discharge (case management coordinator consulted to assist) Thank you for this consultation. Will continue to follow along with you. Discussed with RN. Subjective Allergies: Coded Allergies: FISH DERIVED (Verified Allergy, Unknown, 10/02/17) MAYONNAISE (Verified Allergy, Unknown, 10/02/17) Uncoded Allergies: seafood (Allergy, Unknown, 10/02/17) Subjective afebrile no leukocytosis Bcx NTD Objective Vital Signs Last 24 Hour Vital Signs Date Time Temp Pulse Resp B/P (MAP) Pulse Ox O2 Delivery O2 Flow Rate FiO2 10/12/17 16:00 98.2 81 20 130/72 (91) 98 98.2 10/12/17 11:28 97.6 78 20 126/65 (85) 97 97.6 10/12/17 09:00 Room Air 10/12/17 07:44 97.7 87 18 102/57 (72) 96 97.7 10/12/17 05:32 98.1 10/12/17 05:02 98.1 10/12/17 04:43 98.1 68 17 100/63 (75) 95 98.1 10/12/17 02:01 97.5 10/12/17 00:33 17 95 10/12/17 00:33 97.5 75 105/60 (75) 97.5 10/11/17 23:06 90 135/55 (81) 10/11/17 23:04 98.1 10/11/17 21:38 82 99/62 (74) 10/11/17 20:01 98.1 10/11/17 20:00 Room Air 10/11/17 19:41 98.1 79 17 96/61 (73) 97 98.1 Height (Feet): 5 Height (Inches): 5.00 Weight (Pounds): 150 Objective General Appearance: no apparent distress, alert EENT: PERRL/EOMI Neck: limited range of motion, tenderness Respiratory/Chest: lungs clear, normal breath sounds Abdomen: non tender, soft Extremities: non-tender Edema: no edema Neurologic: alert, oriented x 3 Skin: normal pigmentation Microbiology Date/Time Source Procedure Growth Status 10/09/17 20:55 Nasal Nares MRSA Culture - Final NO METHICILLIN RESISTANT STAPH AUREUS... Complete Laboratory Tests Test 10/12/17 05:30 White Blood Count 5.3 K/UL (4.8-10.8) Red Blood Count 3.62 M/UL (4.70-6.10) L Hemoglobin 10.2 G/DL (14.2-18.0) L Hematocrit 30.5 % (42.0-52.0) L Mean Corpuscular Volume 84 FL (80-99) Mean Corpuscular Hemoglobin 28.2 PG (27.0-31.0) Mean Corpuscular Hemoglobin Concent 33.5 G/DL (32.0-36.0) Red Cell Distribution Width 14.0 % (11.6-14.8) Platelet Count 182 K/UL (150-450) Mean Platelet Volume 7.3 FL (6.5-10.1) Neutrophils (%) (Auto) 40.0 % (45.0-75.0) L Lymphocytes (%) (Auto) 42.5 % (20.0-45.0) Monocytes (%) (Auto) 9.2 % (1.0-10.0) Eosinophils (%) (Auto) 7.3 % (0.0-3.0) H Basophils (%) (Auto) 1.0 % (0.0-2.0) Sodium Level 137 MMOL/L (136-145) Potassium Level 4.3 MMOL/L (3.5-5.1) Chloride Level 103 MMOL/L (98-107) Carbon Dioxide Level 28 MMOL/L (21-32) Anion Gap 6 mmol/L (5-15) Blood Urea Nitrogen 7 mg/dL (7-18) Creatinine 0.5 MG/DL (0.55-1.30) L Estimat Glomerular Filtration Rate > 60 mL/min (>60) Glucose Level 99 MG/DL (74-106) Calcium Level 9.7 MG/DL (8.5-10.1) Current Medications Medications (Trade) Dose Ordered Sig/Veronica Route PRN Reason Start Time Stop Time Status Last Admin Dose Admin Acetaminophen (Tylenol) 650 mg Q4H PRN ORAL fever 10/09/17 19:45 11/08/17 19:44 Acetaminophen/ Hydrocodone Bitart ([place] 5/325) 1 tab Q4H PRN ORAL FOR MILD PAIN 10/09/17 20:02 10/16/17 20:01 10/12/17 15:56 Al Hydroxide/Mg Hydroxide (Mylanta II) 30 ml Q6H PRN ORAL dyspepsia 10/09/17 19:45 11/08/17 19:44 Cefazolin Sodium 2 gm/Dextrose 110 ml @ 220 mls/hr Q8H IVPB 10/10/17 14:30 10/17/17 14:29 10/12/17 05:52 Dextrose (Dextrose 50%) 25 ml PRN IV Hypoglycemia 10/09/17 20:15 11/08/17 20:14 Dextrose (Dextrose 50%) 50 ml PRN IV hypoglycemia 10/09/17 20:15 11/08/17 20:14 Duloxetine HCl (Cymbalta) 30 mg DAILY ORAL 10/12/17 12:06 11/11/17 12:05 10/12/17 13:20 Gabapentin (Neurontin) 300 mg THREE TIMES A DAY ORAL 10/10/17 09:00 11/09/17 08:59 10/12/17 13:20 Heparin Sodium (Porcine) (Heparin 5000 units/ml) 5,000 units EVERY 12 HOURS SUBQ 10/09/17 21:00 11/08/17 20:59 10/12/17 09:13 Hydromorphone HCl (Dilaudid) 1 mg Q3H PRN IVP pain 7-10 10/09/17 19:45 10/16/17 19:44 10/12/17 11:22 Lorazepam (Ativan 2mg/ml 1ml) 0.5 mg Q4H PRN IV For Anxiety 10/09/17 19:45 10/16/17 19:44 Lorazepam (Ativan) 1 mg Q6H PRN ORAL For Anxiety 10/12/17 04:00 10/19/17 03:59 Morphine Sulfate (Morphine Sulfate) 2 mg Q4H PRN IVP For Pain 4-6 10/09/17 19:45 10/16/17 19:44 Morphine Sulfate (Morphine Sulfate) 4 mg Q4H PRN IVP breakthrough pain 10/09/17 19:45 10/16/17 19:44 Ondansetron HCl (Zofran) 4 mg Q6H PRN IVP Nausea & Vomiting 10/09/17 19:45 11/08/17 19:44 Polyethylene Glycol (Miralax) 17 gm HSPRN PRN ORAL Constipation 10/09/17 19:45 11/08/17 19:44 10/12/17 09:17 Zolpidem Tartrate (Ambien) 5 mg HSPRN PRN ORAL Insomnia 10/09/17 19:45 10/16/17 19:44 Steph Crowder M.D. Oct 12, 2017 17:44
--- NOTE | 2017-10-15 12:19 | Discharge Summary ---
Discharge Summary Discharge Summary _ DATE OF ADMISSION: 10/09/2017 DATE OF DISCHARGE: 10/12/2017 REASON FOR ADMISSION: 57 years old male with history of multiply laminectomies of C-spine and L- spine, recent discitis/osteomyelitis with epidural abscess, COPD, hepatitis C , HIV status , was brought to ED for evalaution. Patient had slip and fall while in the bath tub. Patient reported he was unable to get up for one day. He complained of low back pain. Upon evaluation vital signs were stable. CT scan of L-spine revealed no acute fracture , but showed multilevel laminectomy and moderate to severe degenerative disease of the lumbar spine . Chest x-ray revealed no acute cardiopulmonary pathology. Laboratory workup revealed mild leukocytosis WBC 11.6 ,hemoglobin 10.8 hematocrit 31.5 , stable electrolytes and renal parameters. Urinalysis without evidence of UTI. CK 689, troponin negative . ECG revealed sinus rhythm, no acute ischemic changes. Patient admitted with diagnoses status post fall, lumbar sprain, HIV, COPD , history of epidural abscess and discitis/osteomyelitis, CONSULTANTS: pulmonary Dr. Cox ID specialist Dr. [place] psychiatrist pain specialist Dr. Stevens HOSPITAL COURSE: Patient admitted. Antibiotics were resumed as per ID specialist recommendations for recent discitis/osteomyelitis with epidural abscess. ID specialist closely followed. Leukocytosis resolved, likely was reactive secondary to fall. Blood culture were negative. Antibiotics continued to complete full 56 days course for osteomyelitis/ epidural abscess. Patient was working with physical and occupational therapists. Supplemental oxygen provided as needed to keep pulse oximetry above 92%. Pulmonary toilet provided as needed. Principal Research Economist followed. No signs of respiratory distress. Pain specialist closely followed . Pain management provided as per pain specialist recommendations. Pain was controlled. Fall precautions maintained. Neurologist attempted to see the patient, however patient r was noncooperative and declined to be seen by neurologist. Psychiatrist seen and evaluated patient, and diagnosed patient with major depressive disorder, recurrent without psychotic features. Psychiatric medication regimen was optimized as per psychiatrist. Patient was never on any antiretroviral therapy, however apparently non- converter with CD4 count of 880. Patient declined to go to shelter facility for IV antibiotics due to complicated arrangement with low income housing. hardware manager was consulted to assist with HH services Patient was stabilized and ready for discharge home with home health services to complete the course of antibiotic for discitis / osteomyelitis for total of 56 days. FINAL DIAGNOSES: Status post fall Lumbar sprain Recent T9-10 discitis/osteomyelitis with epidural abscess Hepatitis C HIV Lumbar spondylosis with moderate to severe degenerative lumbar disc disease status post multiple lumbar surgeries Cervical spine stenosis status post cervical surgery COPD Major depressive disorder, recurrent without psychotic features DISCHARGE MEDICATIONS: See Medication Reconciliation list. DISCHARGE INSTRUCTIONS: Patient was discharged home Follow up with primary care provider in one week. ID recommended that patient will need to establish HIV care upon discharge. I have been assigned to dictate discharge summary for this account. I was not involved in the patient's management. Abbey Powell NP Oct 15, 2017 12:19
== END 2017-10-12 17:00 | disposition home or self-care (01) | DRG 551 ==
LOC: EDBD 16:11 → EMR 17:57 → 4W 18:21 → EDBEDREQ 19:39
DX: S33.5XXA Sprain of ligaments of lumbar spine, initial encounter (principal); B20 Human immunodeficiency virus [HIV] disease; G06.1 Intraspinal abscess and granuloma; E46 Unspecified protein-calorie malnutrition; F33.9 Major depressive disorder, recurrent, unspecified; M86.8X9 Other osteomyelitis, unspecified sites; Y92.002 Bathroom of unspecified non-institutional (private) residence as the place of occurrence of the external cause; W18.2XXA Fall in (into) shower or empty bathtub, initial encounter; B19.20 Unspecified viral hepatitis C without hepatic coma; Z98.890 Other specified postprocedural states; J44.9 Chronic obstructive pulmonary disease, unspecified; E87.6 Hypokalemia; M51.36 Other intervertebral disc degeneration, lumbar region; M47.896 Other spondylosis, lumbar region; F19.11 Other psychoactive substance abuse, in remission; F41.1 Generalized anxiety disorder; R53.81 Other malaise
CPT/HCPCS: 36415; 71045; 72131; 80048; 80053; 81003; 82550; 82553; 83605; 83735; 84100; 84443; 84484; 85025; 85651; 86140; 86360; 87040; 87081; 93005; 99285; J8499

== ENCOUNTER 2017-11-22 13:13 | Emergency (ER) | payer MEDICARE, OTHER ==
[~2017-11-22] VITALS: Ht 170.2 cm; Wt 49.9 kg
[~2017-11-22 13:13] MED LIST changes: +UNOBMED
--- NOTE | 2017-11-22 13:54 | Emergency Room Report ---
History of Present Illness General Chief Complaint: PICC line problem Source: Patient Present Illness HPI Patient is a 57-year-old male who presented after accidental removal of his peripheral inserted central catheter. The patient had been receiving IV antibiotics after infection. The patient was receiving antibiotics home health nurse. The patient was noted to have the blood disease which he is unclear of the type. Allergies: Coded Allergies: FISH DERIVED (Verified Allergy, Unknown, 10/02/17) MAYONNAISE (Verified Allergy, Unknown, 10/02/17) Uncoded Allergies: seafood (Allergy, Unknown, 10/02/17) Patient History Past Medical History: see triage record Reviewed Nursing Documentation: PMH: Agreed; PSxH: Agreed Nursing Documentation-PMH Hx Cardiac Problems: No Hx Hypertension: Yes Hx Asthma: Yes Hx COPD: Yes Hx Diabetes: No Hx Cancer: No Hx Gastrointestinal Problems: Yes - HEP C, AIDS Hx Dialysis: No Hx Neurological Problems: No Hx Cerebrovascular Accident: No Hx Seizures: No Review of Systems All Other Systems: negative except mentioned in HPI Physical Exam General Appearance: well appearing, alert, GCS 15, Chronically Ill Head: normocephalic, atraumatic ENT: hearing grossly normal, normal voice Neck: full range of motion, supple Respiratory: no respiratory distress, speaking full sentences Gastrointestinal: normal inspection, normal bowel sounds Neurologic: normal inspection, alert, oriented x3, responsive, motor weakness - bilateral lower extremities Psychiatric: mood/affect normal Medical Decision Making Diagnostic Impression: Primary Impression: HIV (human immunodeficiency virus infection) Additional Impression: Osteomyelitis ER Course Patient presented for accidental PICC line removal. Differential diagnosis included was not limited to the osteomyelitis, hyponatremia among others. The patient was noted to be receiving long-term IV antibiotics. The PICC line was ordered.The peripheral inserted central catheter is placed by radiology. The patient be discharged home. The patient will continue IV antibiotics for the osteomyelitis. At the time of discharge patient is awake alert and oriented. Status: improved Disposition: HOME, SELF-CARE Condition: Stable Gato Kapoor MD Nov 22, 2017 13:54
[2017-11-22] MEDS ORDERED: Heparin 2000 units/Ns 1000ml INJ ONE (14:00)
[2017-11-22] MEDS ORDERED: Lidocaine 1% Plain 30 ml INJ ONE (14:00)
[2017-11-22 14:35] VITALS: BP 122/74
--- NOTE | 2017-11-22 15:16 | Diagnostic Imaging Report ---
Indication: exterminator venous access Findings: After the indications, procedure, risks, complications, and alternatives of the procedure were explained, written informed consent was obtained. The left upper extremity was prepped with alcohol. All elements of maximal sterile barrier technique were followed including usage of a cap, mask, sterile gown, sterile gloves, hand hygiene and a large sterile sheet. Sonographic evaluation of the upper extremity was performed demonstrating a patent and compressible basilic vein. Access was obtained under real-time ultrasound guidance (with utilization of sterile gel and sterile probe cover) and digital image was saved and archived. An .018 wire was introduced. Needle exchanged for a 5 Khmer peel-away sheath. Measurements were obtained. A 5 Khmer dual-lumen Power PICC line catheter was cut to 47 cm and introduced over the wire. Peel-away sheath and wire were removed.Catheter was secured to the skin using 2-0 Prolene suture. Both ports aspirate and flush easily. Fluoroscopic images show distal tip in the superior vena cava. Total fluoroscopic time 0.4 minutes Impression: Successful placement of an upper extremity PICC line catheter
[2017-11-22 16:32] VITALS: BP 124/79
[2017-11-22 16:40] VITALS: BP 124/79
[2017-11-22] MEDS ORDERED: Dyna-Hex 2% Top Sol 2oz TOPIC SCH (20:00)
== END 2017-11-22 16:40 | disposition home or self-care (01) ==
LOC: EMR 14:15
DX: T82.594A Other mechanical complication of infusion catheter, initial encounter (principal); T78.8XXA Other adverse effects, not elsewhere classified, initial encounter; Z46.82 Encounter for fitting and adjustment of non-vascular catheter; M86.8X9 Other osteomyelitis, unspecified sites; I10 Essential (primary) hypertension; B19.20 Unspecified viral hepatitis C without hepatic coma; Z21 Asymptomatic human immunodeficiency virus [HIV] infection status; J44.9 Chronic obstructive pulmonary disease, unspecified
CPT/HCPCS: 36569; 76937; 99284; J1644; J2001; 51701

== ENCOUNTER 2018-10-20 20:12 | Emergency (ER) | payer MEDICARE, OTHER ==
[~2018-10-20] VITALS: Ht 172.7 cm; Wt 59.0 kg
[2018-10-20 20:40] VITALS: BP 142/69
[2018-10-20] MEDS ORDERED: Lidocaine 1% MPF 10mg/ml 5ml IM ONE (20:45)
[2018-10-20] MEDS ORDERED: Neosporin Oint Ud Pkt TOPIC ONE (20:45)
[2018-10-20] MEDS ORDERED: HYDROcodone/Acetamin 5/325 tab ORAL ONE (20:45)
--- NOTE | 2018-10-20 20:53 | NUR ---
ED Nurse Note: Patient walked into ED c/o abscess located on his upper back that he first noticed 2 days ago, complains of 10/10 pain. AAO x4, VSS at this time.
[2018-10-20] MEDS ORDERED: CLINDAMYCIN HC300 MG ORAL (21:15)
[2018-10-20] MEDS ORDERED: NORCO 5-325 TA1 EACH ORAL (21:15)
[2018-10-20] MEDS ORDERED: Clindamycin 150mg cap ORAL ONE (21:15)
[2018-10-20 21:30] VITALS: BP 142/69
--- NOTE | 2018-10-20 21:31 | NUR ---
ER DISCHARGE NOTE: Patient is cleared to be discharged per ERMD, pt is aox4, on room air, with stable vital signs. pt was given dc and prescription instructions, pt was able to verbalize understanding, pt id band removed without complications. pt is able to ambulate with steady gait. pt took all belongings.
--- NOTE | 2018-10-20 22:11 | Emergency Room Report ---
History of Present Illness General Chief Complaint: Skin Rash/Abscess Source: Patient Present Illness HPI Patient is a 58-year-old male presenting for possible abscess. He noticed pain and swelling to the mid upper back 2 days prior. Has been growing in size. Pain is a 10 out of 10 dull ache and does not radiate. Worse with touch. He denies any known injury to the area. He denies other symptoms including fever, chills, numbness, tingling Allergies: Coded Allergies: FISH DERIVED (Verified Allergy, Unknown, 10/02/17) MAYONNAISE (Verified Allergy, Unknown, 10/02/17) Uncoded Allergies: seafood (Allergy, Unknown, 10/02/17) Patient History Past Medical History: see triage record Pertinent Family History: none Reviewed Nursing Documentation: PMH: Agreed; PSxH: Agreed Nursing Documentation-PMH Past Medical History: No History, Except For Hx Cardiac Problems: No - blood disease Hx Hypertension: Yes Hx Asthma: Yes Hx COPD: Yes Hx Diabetes: No Hx Cancer: No Hx Gastrointestinal Problems: Yes - HEP C, AIDS Hx Dialysis: No Hx Neurological Problems: No Hx Cerebrovascular Accident: No Hx Seizures: No Review of Systems All Other Systems: negative except mentioned in HPI Physical Exam Vital Signs Date Time Temp Pulse Resp B/P (MAP) Pulse Ox O2 Delivery O2 Flow Rate FiO2 10/20/18 20:21 98.1 100 20 142/69 (93) 99 Sp02 EP Interpretation: reviewed, normal General Appearance: no apparent distress, alert, GCS 15, non-toxic Neck: full range of motion Respiratory: chest non-tender, lungs clear, normal breath sounds, speaking full sentences Cardiovascular #1: regular rate, rhythm, no edema Musculoskeletal: other - midline spinal surgical scar tissue Neurologic: alert, oriented x3, responsive Psychiatric: judgement/insight normal, memory normal, mood/affect normal, no suicidal/homicidal ideation Skin: other - mid upper back 3cm long fluctuant, erythematous abscess Lymphatic: no adenopathy Procedures Incision and Drainage Incision and Drainage : Consent: Verbal Site: Mid upper back Blade Size: 15 I & D Procedure: betadine prep, sterile drapes applied, sterile dressing applied Wound Location: back Wound's Depth, Shape: superficial Wound Length (cm): 2 Wound Explored: contaminated Irrigated w/ Saline (ccs): 100 Anesthesia: 1% Lidocaine Volume Anesthetic (ccs): 3 Splint Applied?: No Sling Applied?: No Patient Tolerated: Well Complications: None Medical Decision Making PA Attestation Dr. Urrutia is my supervising physician. Patient management was discussed with my supervising physician Diagnostic Impression: Primary Impression: Abscess ER Course Patient is a 58-year-old male presenting for possible abscess Differential diagnoses considered but not limited to: abscess, cellulitis, cyst , among others PE: Afebrile. NAD Mid upper thoracic region has 3cm fluctuant abscess. TTP. No DC Betadine prep was used to clean the skin and surrounding area. One percent lidocaine without epinephrine was used to anesthetize the are of planned incision. A #15 blade was used to make an incision in the central area of fluctuance approximately 1/2 the size of the diameter of the abscess. Once the incision was made, purulent material was expressed with blood. Blunt dissection was then used to release loculations and expressed more purulent material. Once only blood appeared to be expressed from the incision, normal saline was used to irrigate the inside of the abscess. The wound was then cleaned and sterile dressing applied. Pt is given clindamycin as precaution due to medical Hx. He has chronic pain and uses Dilaudid daily. He states this is not enough for the current pain. he is given a limited supply of pain medication and told to F/U with his primary doctor as soon as possible. ER precautions given Last Vital Signs Date Time Temp Pulse Resp B/P (MAP) Pulse Ox O2 Delivery O2 Flow Rate FiO2 10/20/18 21:30 98.1 83 20 142/69 99 Status: improved Disposition: HOME, SELF-CARE Condition: Improved Scripts Hydrocodone Bit/Acetaminophen 5-325* (NORCO 5-325*) 1 Each Tablet 1 TAB ORAL Q6H PRN for For Pain, #10 TAB 0 Refills Prov: TERZIAN,DEJAH P.A. 10/20/18 Clindamycin Hcl (CLINDAMYCIN HCL) 300 Mg Capsule 300 MG ORAL TID, #21 CAP Prov: TERZIAN,DEJAH P.A. 10/20/18 Patient Instructions: Abscess Additional Instructions: I discussed my findings with the patient. All questions and concerns have been answered. Treatment and medication compliance have been addressed. Please keep your appointment on 10/23/2018 as you stated. Return to ER if symptoms worsen, new symptoms arise, or if needed for any reason. Patient verbalized understanding of discharge instructions. DEJAH HE Oct 20, 2018 22:11
== END 2018-10-20 21:30 | disposition home or self-care (01) ==
LOC: EMR 20:45
DX: L02.212 Cutaneous abscess of back [any part, except buttock and flank] (principal); B19.20 Unspecified viral hepatitis C without hepatic coma; B20 Human immunodeficiency virus [HIV] disease; J44.9 Chronic obstructive pulmonary disease, unspecified; I10 Essential (primary) hypertension; Z91.013 Allergy to seafood; Z91.018 Allergy to other foods
CPT/HCPCS: 99283

== ENCOUNTER 2019-03-02 09:11 | Emergency (ER) | payer MEDICARE, OTHER ==
[~2019-03-02] VITALS: Ht 172.7 cm; Wt 60.8 kg
[~2019-03-02 09:11] MED LIST changes: +CLINDAMYCIN HC300 MG ORAL
--- NOTE | 2019-03-02 09:22 | NUR ---
ED Nurse Note:pt. was [place]ONDA from the street ,he is resident at [facility], s/p fall last night c/o back pain-he had back surgery 2 weeks ago, he has suturs along his upper spine area, A/ox4 came with wheelchair
[2019-03-02] MEDS ORDERED: HYDROmorphone 1mg/ml Carpuject IVP ONE ×2 (09:30→10:45)
[2019-03-02 09:37] VITALS: BP 141/76
--- NOTE | 2019-03-02 09:39 | NUR ---
ED Nurse Note:blood was sent to labs and pt. received pain med
[2019-03-02 10:03] LABS: BASOPHILS % (AUTO) 0.6 % (0.0-2.0); EOSINOPHILS % (AUTO) 1.1 % (0.0-3.0); HEMATOCRIT 36.2 % (42.0-52.0); HEMOGLOBIN 11.5 G/DL (14.2-18.0); LYMPHOCYTES % (AUTO) 16.8 % (20.0-45.0); MEAN CORPUSCULAR VOLUME 80 FL (80-99); NEUTROPHILS % (AUTO) 75.4 % (45.0-75.0); PLATELET COUNT 280 K/UL (150-450); RED BLOOD COUNT 4.53 M/UL (4.70-6.10); RED CELL DISTRIBUTION WIDTH 17.1 % (11.6-14.8); WHITE BLOOD COUNT 7.6 K/UL (4.8-10.8)
[2019-03-02 10:08] LABS: ANION GAP 9 mmol/L (5-15); BLOOD UREA NITROGEN 9 mg/dL (7-18); CALCIUM 9.3 MG/DL (8.5-10.1); CARBON DIOXIDE 28 MMOL/L (21-32); CHLORIDE 102 MMOL/L (98-107); CREATININE 0.6 MG/DL (0.55-1.30); POTASSIUM 3.9 MMOL/L (3.5-5.1); SODIUM 139 MMOL/L (136-145)
[2019-03-02 10:14] LABS: ALANINE AMINOTRANSFERASE 19 U/L (12-78); ALBUMIN 3.2 G/DL (3.4-5.0); ALBUMIN/GLOBULIN RATIO 0.5 (1.0-2.7); ALKALINE PHOSPHATASE 99 U/L (46-116); ASPARTATE AMINO TRANSFERASE 17 U/L (15-37); BILIRUBIN,TOTAL 0.4 MG/DL (0.2-1.0)
--- NOTE | 2019-03-02 10:18 | Emergency Room Report ---
History of Present Illness General Chief Complaint: Back Pain-No Injury Source: Medical Record Present Illness HPI 58-year-old male presents ED for evaluation. Brought in by EMS. Patient complaining of back pain states he fell last night. Notes pain to the upper back. 10 out of 10, sharp, nonradiating. Status post revision surgery to his upper back with washout and replacement of hardware. 2 weeks ago at [facility]. Was at long term facility receiving IV antibiotics via PICC line. Received a "day pass"to leave facility yesterday but fell and was unable to get to facility so he called 911. No other aggravating relieving factors. Denies any other associated symptoms Allergies: Coded Allergies: FISH DERIVED (Verified Allergy, Unknown, 10/02/17) MAYONNAISE (Verified Allergy, Unknown, 10/02/17) Uncoded Allergies: seafood (Allergy, Unknown, 10/02/17) Patient History Past Medical History: HTN, asthma, HIV Past Surgical History: other - back surgery, washout 2 weeks ago Pertinent Family History: none Social History: Denies: smoking, alcohol use, drug use Immunizations: UTD Reviewed Nursing Documentation: PMH: Agreed; PSxH: Agreed Nursing Documentation-PMH Past Medical History: No History, Except For Hx Cardiac Problems: No - blood disease Hx Hypertension: Yes Hx Asthma: Yes Hx COPD: Yes Hx Diabetes: No Hx Cancer: No Hx Gastrointestinal Problems: Yes - HEP C, AIDS Hx Dialysis: No Hx Neurological Problems: No Hx Cerebrovascular Accident: No Hx Seizures: No Review of Systems All Other Systems: negative except mentioned in HPI Physical Exam Vital Signs Date Time Temp Pulse Resp B/P (MAP) Pulse Ox O2 Delivery O2 Flow Rate FiO2 03/02/19 09:05 98.1 80 16 141/76 (97) 100 Room Air Sp02 EP Interpretation: reviewed, normal General Appearance: no apparent distress, alert, GCS 15, non-toxic Head: normocephalic Eyes: bilateral eye normal inspection, bilateral eye PERRL ENT: normal ENT inspection Neck: normal inspection Respiratory: normal inspection Cardiovascular #1: normal inspection Gastrointestinal: normal inspection Rectal: deferred Genitourinary: no CVA tenderness, vertebral tenderness Musculoskeletal: back normal, normal range of motion, gait/station normal, non- tender Neurologic: alert, motor strength/tone normal, oriented x3, sensory intact, responsive, speech normal Psychiatric: normal inspection Skin: other - suture line to thoracic region. no erythema/induration Lymphatic: normal inspection Medical Decision Making Diagnostic Impression: Primary Impression: Back pain Qualified Codes: M54.6 - Pain in thoracic spine Additional Impression: PICC (peripherally inserted central catheter) in place ER Course Hospital Course 58-year-old male presents with mid back pain status post fall. Status post washout and revision of thoracic spine 2 weeks ago at [facility]. Differential diagnoses include: fx, dislocation, sepsis Clinical course Patient placed on stretcher. equipment monitor phototypesetting. After initial history and physical I ordered labs, pain meds, Xrays of T spine and L spine Labs - no leukocytosis, Hb/Hct stable. electrolytes ok. Xray of T spine and L spine shows hardware in place. T7 wedge fx ? acuity No leukocytosis. No erythema or induration. Patient on daptomycin via PICC line at the facility once daily. We ordered daptomycin here. Safe to discharge to home. Arranged transfer to long term facility I feel this is a highly complex case requiring extensive working including EKG/ Rhythm strip, Xray/CT/US, Blood/urine lab work, repeat exams while in ED, and administration of strong opiates/narcotics for pain control, admission to hospital or close patient follow up. Diagnosis - back pain, PICC in place stable and discharged to SNF. f/u with PMD. return to ED if symptoms recur/ worsen. Labs Test 03/02/19 09:30 White Blood Count 7.6 K/UL (4.8-10.8) Red Blood Count 4.53 M/UL (4.70-6.10) Hemoglobin 11.5 G/DL (14.2-18.0) Hematocrit 36.2 % (42.0-52.0) Mean Corpuscular Volume 80 FL (80-99) Mean Corpuscular Hemoglobin 25.4 PG (27.0-31.0) Mean Corpuscular Hemoglobin Concent 31.8 G/DL (32.0-36.0) Red Cell Distribution Width 17.1 % (11.6-14.8) Platelet Count 280 K/UL (150-450) Mean Platelet Volume 6.6 FL (6.5-10.1) Neutrophils (%) (Auto) 75.4 % (45.0-75.0) Lymphocytes (%) (Auto) 16.8 % (20.0-45.0) Monocytes (%) (Auto) 6.0 % (1.0-10.0) Eosinophils (%) (Auto) 1.1 % (0.0-3.0) Basophils (%) (Auto) 0.6 % (0.0-2.0) Sodium Level 139 MMOL/L (136-145) Potassium Level 3.9 MMOL/L (3.5-5.1) Chloride Level 102 MMOL/L (98-107) Carbon Dioxide Level 28 MMOL/L (21-32) Anion Gap 9 mmol/L (5-15) Blood Urea Nitrogen 9 mg/dL (7-18) Creatinine 0.6 MG/DL (0.55-1.30) Estimat Glomerular Filtration Rate > 60 mL/min (>60) Glucose Level 99 MG/DL (74-106) Calcium Level 9.3 MG/DL (8.5-10.1) Total Bilirubin 0.4 MG/DL (0.2-1.0) Aspartate Amino Transf (AST/SGOT) 17 U/L (15-37) Alanine Aminotransferase (ALT/SGPT) 19 U/L (12-78) Alkaline Phosphatase 99 U/L (46-116) Total Protein 9.2 G/DL (6.4-8.2) Albumin 3.2 G/DL (3.4-5.0) Globulin 6.0 g/dL Albumin/Globulin Ratio 0.5 (1.0-2.7) Other X-Ray Diagnostic Results Other X-Ray Diagnostic Results #1: X-Ray ordered: T spine # of Views/Limited Vs Complete: 2 View Indication: Pain EP Interpretation: Yes Interpretation: no dislocation, no soft tissue swelling, other - hardware in place. T7 wedge fx ? acuity Impression: Other - t7 wedge fx Electronically Signed by: Electronically signed by Abdiel Bruner MD Other X-Ray Diagnostic Results #2: X-Ray ordered: L spine # of Views/Limited Vs Complete: 3 View Indication: Pain EP Interpretation: Yes Interpretation: no dislocation, no soft tissue swelling, no fractures Impression: No acute disease Electronically Signed by: Electronically signed by Abdiel Bruner MD Last Vital Signs Date Time Temp Pulse Resp B/P (MAP) Pulse Ox O2 Delivery O2 Flow Rate FiO2 03/02/19 09:37 98.1 84 16 141/76 100 Room Air Status: improved Disposition: XFER SNF Condition: Stable Referrals: NON PHYSICIAN (PCP) Abdiel Bruner MD Mar 02, 2019 10:18
[2019-03-02] MEDS ORDERED: DAPTOmycin 500 MG in NS 55 ML IV ONE (10:30)
--- NOTE | 2019-03-02 11:40 | Diagnostic Imaging Report ---
EXAM: XR Thoracic Spine, 3 Views CLINICAL HISTORY: BK PAIN TECHNIQUE: Frontal, lateral and swimmer's views of the thoracic spine. COMPARISON: MRI thoracic spine 08/28/17 FINDINGS: Vertebrae: Anterior wedge deformity of T7 vertebral body with about 30% loss of height, age indeterminant, possible acute anterior fracture. There are anterior and posterior cervical fixation hardware. Normal alignment. Disc spaces: Elsa rods of the thoracic spine with hardware intact, approximately T4-T12. Soft tissues: Unremarkable. Tubes, lines and devices: Left PICC line to the cavoatrial junction. IMPRESSION: 1. Anterior wedge deformity of T7 vertebral body with about 30% loss of height, age indeterminant, possible acute anterior fracture. 2. Elsa rods of the thoracic spine with hardware intact, approximately T4-T12. 3. There are anterior and posterior cervical fixation hardware.
[2019-03-02 11:43] VITALS: BP 115/64
--- NOTE | 2019-03-02 11:43 | Diagnostic Imaging Report ---
EXAM: XR Lumbosacral Spine, 2 or 3 Views CLINICAL HISTORY: BK PAIN TECHNIQUE: Frontal and lateral views of the lumbar spine and sacrum. COMPARISON: CT lumbar spine 10/09/17 and lumbar spine plain films 08/27/17 FINDINGS: Vertebrae: Lower thoracic Elsa rods. Mild levoscoliosis lumbar spine. No acute fracture. Normal alignment. Sacrum/coccyx: Unremarkable as visualized. No acute fracture. Disc spaces: Moderate to severe disc space narrowing predominantly L2- 3 and L4-5. Large marginal osteophytes. Soft tissues: Unremarkable. IMPRESSION: No acute fracture or malalignment. Degenerative changes.
[2019-03-02 14:50] VITALS: BP 115/64
--- NOTE | 2019-03-02 14:54 | NUR ---
ED Nurse Note:pt. was picked up by ambulance for transfer back to [facility], condition stable
== END 2019-03-02 14:56 ==
LOC: EDBD 09:11 → EMR 09:48
DX: M54.6 Pain in thoracic spine (principal); Y92.9 Unspecified place or not applicable; Z91.013 Allergy to seafood; B20 Human immunodeficiency virus [HIV] disease; Z91.018 Allergy to other foods; I10 Essential (primary) hypertension; J44.9 Chronic obstructive pulmonary disease, unspecified
CPT/HCPCS: 36415; 72020; 72070; 80053; 85025; 96365; 96375; 96376; 99284; J0878; J1170